=== PATIENT | female | born 1960 | race African-American/Black ===

== ENCOUNTER 2019-12-26 07:49 | Outpatient (RCR) | payer MEDICARE, SELFPAY ==
[2019-10-24 12:30] VITALS: BMI 56.9
== END 2020-01-22 23:59 | disposition home or self-care (01) ==
LOC: ANHWOC 07:49
PROVIDERS: PCP Family Medicine; Visit Provider Nurse Practitioner
DX: S71.109D Unspecified open wound, unspecified thigh, subsequent encounter (principal)
CPT/HCPCS: 99203; 99212; A9270; G0463

== ENCOUNTER 2020-04-09 07:33 | Outpatient (RCR) | payer MEDICARE, SELFPAY ==
--- NOTE | 2020-02-20 11:51 | PCWOUND ---
WOCN NOTE patient called to cancel appointment for today 02/20/20 . Rescheduled for next 02/27/20.
== END 2020-04-22 23:59 | disposition home or self-care (01) ==
LOC: ANHWOC 07:33
PROVIDERS: PCP Family Medicine; Visit Provider Nurse Practitioner
DX: S71.109D Unspecified open wound, unspecified thigh, subsequent encounter (principal)
CPT/HCPCS: 99212; A9270; G0463

== ENCOUNTER 2020-05-07 12:57 | Outpatient (RCR) | payer MEDICARE, SELFPAY ==
--- NOTE | 2020-06-03 11:27 | PCWOUND ---
Wocn Note Patient daughter called to cancel for tomorrow 06-04-20. patient is admitted to hospital in [facility]. patient to call when Discharged.
== END 2020-07-27 17:15 | disposition home or self-care (01) ==
LOC: ANHWOC 12:57
PROVIDERS: PCP Family Medicine; Visit Provider Nurse Practitioner
DX: S71.109D Unspecified open wound, unspecified thigh, subsequent encounter (principal)
CPT/HCPCS: 99212; G0463

== ENCOUNTER 2020-10-08 09:05 | Outpatient (CLI) | payer MEDICARE, SELFPAY ==
--- NOTE | ~2020-10-08 | MM_ITS ---
EXAMINATION: MM screening neil BI w lynda HISTORY: Screening TECHNIQUE: Craniocaudal and mediolateral oblique 3-D tomosynthesis images were obtained and synthetic 2-D images were generated. CAD analysis was submitted and interpreted. COMPARISON: No prior mammogram is available for comparison at this institution. BREAST PARENCHYMAL COMPOSITION: There are scattered areas of fibroglandular density. FINDINGS: There are bilateral clusters of calcifications and asymmetry in the periareolar locations. Possible right breast architectural distortion. There are benign bilateral breast calcifications. IMPRESSION: 1. Bilateral breast asymmetries and clustered calcifications. 2. Comparison to previous outside mammograms recommended to assess stability. BI-RADS Category 0: Incomplete: Needs additional imaging evaluation. Reviewed, dictated and finalized at location A. T DISTILLER
== END 2020-10-08 09:06 | disposition home or self-care (01) ==
PROVIDERS: PCP Family Medicine; Visit Provider Family Medicine
DX: Z12.31 Encounter for screening mammogram for malignant neoplasm of breast (principal); R92.8 Other abnormal and inconclusive findings on diagnostic imaging of breast
CPT/HCPCS: 77063; 77067

== ENCOUNTER 2020-12-22 12:59 | Outpatient (CLI) | payer MEDICARE, SELFPAY ==
--- NOTE | ~2020-12-22 | MMUS_ITS ---
EXAMINATION: MM diagnostic neil BI w lynda, US breast BI complete HISTORY: Follow-up breast calcifications and asymmetries. TECHNIQUE: Additional 3-D tomosynthesis images of the breasts were performed and synthetic 2-D images were generated. CAD analysis was submitted and interpreted. High resolution bilateral complete breas t ultrasound was performed. COMPARISON: Comparison to multiple prior studies sequentially, with oldest reviewed study dated 06/22. BREAST PARENCHYMAL COMPOSITION: Breast composed of scattered areas of fibroglandular density. FINDINGS: MAMMOGRAPHIC FINDINGS: There are scattered benign-appearing bilateral breast calcifications. There is ar 9 mm mass in the up per inner quadrant of the right breast, anterior-middle third, slightly more prominent than on prior study. There are additional asymmetries in the right breast on CC view involving the mid and lateral aspect of the right breast are more prominent than on prior study. There are scattered nodular densit ies anteriorly in the left breast, centered centrally on the MLO view and scattered medially and late rally on the CC view. ULTRASOUND: Right breast ultrasound: At 12:00, 2 cm from the nipple, there is an oval hypoechoic mass with drawing tracer ior shadowing measuring 8 mm. At 6:00, 3 cm from the nipple, there is an oval hypoechoic mass measuri ng 6 mm with echogenic hilum, most likely benign intramammary lymph node. At 8:00, 4 cm from the nipp le, there is a 4 mm cyst. At 8:00, 2 cm from the nipple, there is an oval hypoechoic mass with echoge andree hilum measuring 4 mm, most likely benign intramammary lymph node. Left breast ultrasound: At 12:00, 5 cm from the nipple, there is an 8 mm mass with hypoechoic center and posterior shadowing. No internal vascularity. At 11:00, 2 cm from the nipple, there is an irregul ar heterogeneous echogenicity mass measuring 11 mm with posterior shadowing. There is an adjacent 3 m m hypoechoic mass, likely benign. At 2:00, 4 cm from the nipple, there is a hypoechoic mass with irre gular margins and posterior shadowing. This mass measures 1.4 x 1.0 x 1 cm. IMPRESSION: 1. Abnormal bilateral breast masses including in the right breast at 12:00, 2 cm from the nipple, 12: 00, left breast at 5 cm from the nipple, left breast at 11:00, 2 cm from the nipple and left breast, 2:00, 4 cm from the nipple. 2. Bilateral ultrasound-guided breast biopsies recommended. BI-RADS category 4, suspicious findings. Reviewed, dictated and finalized at location A. ERVATION ASSISTANT IMPRESSION: 1. Abnormal bilateral breast masses including in the right breast at 12:00, 2 c m from the nipple, 12:00, left breast at 5 cm from the nipple, left breast at 1 1:00, 2 cm from the nipple and left breast, 2:00, 4 cm from the nipple. 2. Bilateral ultrasound-guided breast biopsies recommended. BI-RADS category 4, suspicious findings.
== END 2020-12-22 13:00 | disposition home or self-care (01) ==
LOC: ANHIMG 13:01
PROVIDERS: PCP Family Medicine; Visit Provider Family Medicine
DX: N63.15 Unspecified lump in the right breast, overlapping quadrants (principal); N63.25 Unspecified lump in the left breast, overlapping quadrants; N60.01 Solitary cyst of right breast; N63.24 Unspecified lump in the left breast, lower inner quadrant; N63.13 Unspecified lump in the right breast, lower outer quadrant
CPT/HCPCS: 76641; 77062; 77066; G0279

== ENCOUNTER 2021-02-02 09:27 | Outpatient (CLI) | payer MEDICARE, SELFPAY ==
--- NOTE | ~2021-02-02 | MMUS_ITS ---
MM post biopsy invasive BI, US breast bx add lesion LT, US breast bx add lesion LT, US breast biopsy RT w image 02/02/2021 11:12 (accession [id number]), 02/02/2021 11:02 (accession [id number]), 02/02/2021 11:02 (accession [id number]), 02/02/2021 11:02 (accession [id number]) EXAMINATION: US GUIDED NEEDLE BIOPSY WITH VACUUM ASSISTANCE DATE: 02/02/2021 11:21 CDT INDICATION: Bilateral breast masses identified on prior examination. Ultrasound-guided core biopsy i s requested to evaluate for malignancy. TECHNIQUE AND FINDINGS: The risks and potential benefits of the procedure were discussed with the patient, and written inform ed consent was obtained. After sterile preparation of both breasts, 1% lidocaine was utilized for lo sandra anesthesia. 1% lidocaine with epinephrine was used for deep anesthesia. Biopsies were performed for right breast mass located at 12:00, 2 cm from the nipple, left breast mass at 11:00, 2 cm from th e nipple and left breast mass located at 12:00, 5 cm from the nipple. The fourth mass in the left sahara ast at 2:00, 4 cm from the nipple appears to be a 2 mm cyst during real-time examination and was not biopsied. A 10G vacuum-assisted biopsy gun needle was advanced through to the outer edge of the region of inter est in each breast utilizing utilizing sonographic guidance. A total of three tissue core samples we re obtained through each lesion. An Inrad tissue marker clip was then placed at the biopsy sites. He mostasis was achieved. The patient tolerated procedure well and there was no evidence of immediate complication. The patien t was given verbal instructions partly is from the department. Bilateral breast mammograms to [facility] nt tissue marker clip placement. The tissue samples were submitted to surgical pathology for histolog ic analysis. IMPRESSION: 1. Successful ultrasound-guided vacuum-assisted biopsies of bilateral breast masses with tissue mita er placement. Please refer to pathology report for histologic analysis. Reviewed, dictated and finalized at location A. IMPRESSION: 1. Successful ultrasound-guided vacuum-assisted biopsies of bilateral breast m asses with tissue marker placement. Please refer to pathology report for histol ogic analysis. IMPRESSION: 1. Successful ultrasound-guided vacuum-assisted biopsies of bilateral breast m asses with tissue marker placement. Please refer to pathology report for histol ogic analysis. IMPRESSION: 1. Successful ultrasound-guided vacuum-assisted biopsies of bilateral breast m asses with tissue marker placement. Please refer to pathology report for histol ogic analysis.
== END 2021-02-02 09:28 | disposition home or self-care (01) ==
PROVIDERS: PCP Family Medicine; Visit Provider Family Medicine
DX: N63.10 Unspecified lump in the right breast, unspecified quadrant (principal); N63.20 Unspecified lump in the left breast, unspecified quadrant; N60.32 Fibrosclerosis of left breast
CPT/HCPCS: 19083; 19084; 88305; A4648

== ENCOUNTER → 2021-05-06 08:52 | Outpatient (CLI) | payer MEDICARE, SELFPAY ==
--- NOTE | 2021-05-24 13:08 | WPDSLEEPSTUD ---
Sleep Study Date of Study: 04/29/21 Ordering Provider: Kevon Aden APRN Interpreting Physician: Marium Godinez MD Sleep Study Type: Polysomnogram Height: 1.52 m Weight: 135.624 kg Body Mass Index: 58.3 Neck Circumference (inches): 15 [place]: 10 Reason for Sleep Study Known obstructive sleep apnea, stopped using CPAP, lost 50 lb, retesting Sleep History Fani Horton is a 61 year old female with obstructive sleep apnea syndrome who has used CPAP in the past. She has lost over 50 lb which is fantastic. There is a family history of sleep disorders with her brother being diagnosed with JASON. He is no longer living. She occasionally awakens from sleep feeling short of breath. She rarely awakens night with heartburn, belching or coughing. She constantly snores loudly, occasionally has trouble sleep with a cold, rarely wakes up gasping for breath at night. She occasionally has breathing problems at night observed by others. She frequently sweats excessively at night. She rarely notices her heart pounding or beating irregularly night. She constantly falls asleep during the day, falls asleep involuntarily but denies falling asleep while driving. She does not have loss of muscle tone with strong emotion. She does not have daytime difficulties due to her excessive sleepiness. She rarely feels paralyzed on waking or falling asleep and rarely has vivid dreamlike scenes upon awakening or falling asleep. She denies feeling afraid to go to sleep. She rarely has nightmares. She constantly remembers her dreams. She occasionally has racing thoughts. She does not feel sad, depressed or anxious. She frequently has muscular tension and frequently notices parts of her body jerking. She rarely kicks at night. She occasionally has crawling and aching feelings in her legs, occasionally has leg pain at night. She does not have morning jaw pain. She occasionally grind her teeth during sleep, occasionally is bothered by pain during the day and awakened by pain at night. She constantly wakes up feeling stiff in the morning, frequently with sore achy muscles and pain in the neck and spine. Normal bedtime is 11:30 p.m. falling asleep within 15-30 minutes, waking once or sometimes not at all during the night. When she awakens she may check the time on her phone, sit up in the bed and then eventually return to sleep within 10 minutes. She wakes the morning between 6:00 and 7:30 a.m. on the weekends, she may stay awake later, 1:00 a.m. and waking between 9 and 10:30 a.m.. She does take naps in the afternoon or evening. A short nap 10 or 15 minutes long may be refreshing. Most of the time she feels adequate in the morning. She feels better in the afternoon or evening compared to the morning. Habits: Quit tobacco 30 years ago. She drinks tea. No alcohol or recreational drugs. 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) Class 3 severe obesity with body mass index (BMI) of 50.0 to 59.9 in adult (~1970) COVID-19 11/2020 Diabetic peripheral neuropathy associated with type 2 diabetes mellitus (~1999) End-stage renal disease on hemodialysis (~03/2019) Gout Gout due to renal impairment (~2008) History of renal cell carcinoma Knee osteoarthritis (~2008) JASON on CPAP (~2012) Renal cell carcinoma of left kidney (~02/14/12) Skin tag (~1995) Type 2 diabetes mellitus without complications Venous thromboembolism (VTE) in patient 61 to 74 years of age (~06/2019) Surgical History Surgical History H/O breast biopsy (~2015) H/O esophagogastroduodenoscopy (~2016) H/O ventral hernia repair (~2015) History of delivery (~1988) History of colonoscopy (~2018) History of dental surgery (~2016) History of partial nephrectomy 01/2012
[2021-05-24 14:07] VITALS: BMI 58.3
== END ==
PROVIDERS: PCP Family Medicine; Visit Provider Nurse Practitioner Family
DX: G47.33 Obstructive sleep apnea (adult) (pediatric) (principal)
CPT/HCPCS: 95810

== ENCOUNTER → 2021-08-10 20:00 | Outpatient (CLI) | payer MEDICARE, SELFPAY ==
--- NOTE | 2021-08-26 12:02 | WPDSLEEPSTUD ---
Sleep Study Date of Study: 07/30/21 <Yvonne Barnes DO - Last Filed: 08/26/21 12:49> Ordering Provider: Kevon Aden APRN <Yvonne Barnes DO - Last Filed: 08/26/21 12:49> Interpreting Physician: Yvonne Barnes DO <Yvonne Barnes DO - Last Filed: 08/26/21 12:49> Sleep Study Type: CPAP Titration <Yvonne Barnes DO - Last Filed: 08/26/21 12:49> Height: 1.52 m <Yvonne Barnes DO - Last Filed: 08/26/21 12:49> Weight: 135.171 kg <Yvonne Barnes DO - Last Filed: 08/26/21 12:49> Body Mass Index: 58.1 <Yvonne Barnes DO - Last Filed: 08/26/21 12:49> Neck Circumference (inches): 17.5 <Yvonne Barnes DO - Last Filed: 08/26/21 12:49> [place]: 4 <Yvonne Barnes DO - Last Filed: 08/26/21 12:49> Reason for Sleep Study The patient has a history of JASON but stopped using CPAP. Insurance required retesting so she had an This test was performed using 4 channel monitoring including respiratory effort channel, snoring channel, heart rate channel, and oxygen saturation channel. This study was scored using CMS guidelines.done on 05/06/2021 that showed an AHI of 17.9 with severe hypoxemia. A PAP Titration was recommended. <Yvonne Barnes, DO - Last Filed: 08/26/21 12:49> Sleep History Fani Horton is a 61 year old female with obstructive sleep apnea syndrome who has used CPAP in the past. Her late brother was diagnosed with JASON. She occasionally awakens from sleep feeling short of breath. She rarely awakens night with heartburn, belching or coughing. She constantly snores loudly, occasionally has trouble sleep with a cold, rarely wakes up gasping for breath at night. She occasionally has breathing problems at night observed by others. She frequently sweats excessively at night. She rarely notices her heart pounding or beating irregularly night. She constantly falls asleep during the day, falls asleep involuntarily but denies falling asleep while driving. She does not have loss of muscle tone with strong emotion. She does not have daytime difficulties due to her excessive sleepiness. She rarely feels paralyzed on waking or falling asleep and rarely has vivid dreamlike scenes upon awakening or falling asleep. She denies feeling afraid to go to sleep. She rarely has nightmares. She constantly remembers her dreams. She occasionally has racing thoughts. She does not feel sad, depressed or anxious. She frequently has muscular tension and frequently notices parts of her body jerking. She rarely kicks at night. She occasionally has crawling and aching feelings in her legs, occasionally has leg pain at night. She does not have morning jaw pain. She occasionally grind her teeth during sleep, occasionally is bothered by pain during the day and awakened by pain at night. She constantly wakes up feeling stiff in the morning, frequently with sore achy muscles and pain in the neck and spine. Normal bedtime is 11:30 p.m. falling asleep within 15-30 minutes, waking once or sometimes not at all during the night. When she awakens she may check the time on her phone, sit up in the bed and then eventually return to sleep within 10 minutes. She wakes the morning between 6:00 and 7:30 a.m. on the weekends, she may stay awake later, 1:00 a.m. and waking between 9 and 10:30 a.m.. She does take naps in the afternoon or evening. A short nap 10 or 15 minutes long may be refreshing. Most of the time she feels adequate in the morning. She feels better in the afternoon or evening compared to the morning. Habits: Quit tobacco 30 years ago. She drinks tea. No alcohol or recreational drugs. <Yvonne Barnes DO - Last Filed: 08/26/21 12:49> [facility] Past Medical History Medical History: Medical History Alopecia of scalp (~1988) Benign essential hypertension (~1993) Chronic thrombosis of
[2021-08-26 12:06] VITALS: BMI 58.1
== END ==
PROVIDERS: PCP Family Medicine; Visit Provider Nurse Practitioner Family
DX: G47.33 Obstructive sleep apnea (adult) (pediatric) (principal)
CPT/HCPCS: 95811

== ENCOUNTER 2021-10-12 08:46 | Outpatient (CLI) | payer MEDICARE, SELFPAY ==
--- NOTE | ~2021-10-12 | MMUS_ITS ---
EXAMINATION: MM diagnostic neil BI w lynda, US breast BI limited HISTORY: Mastodynia TECHNIQUE: Craniocaudal, mediolateral, and mediolateral oblique 3-D tomosynthesis images of the breas ts were performed and synthetic 2-D images were generated. CAD analysis was submitted and interpreted . High resolution limited bilateral breast ultrasound was performed. COMPARISON: 12/22/2020, 10/08/2020, 06/22/2015 BREAST PARENCHYMAL COMPOSITION: There are scattered areas of fibroglandular density. FINDINGS: MAMMOGRAPHIC FINDINGS: Right breast: There is architectural distortion in the anterior third of the outer breast at the 9:00 location 7 cm from the nipple. No suspicious mass or calcification are identified. Left breast: There are stable masses and calcifications of the left breast without suspicious interva l change. ULTRASOUND: Right breast: Small cysts are noted in the breast at the 12:00 and 10:00 locations. There appears to be architectural distortion of the breast at the 9:00 location 2 cm from the nipple. Left breast: No suspicious cystic or solid mass is identified. IMPRESSION: 1. Architectural distortion of the outer right breast. 2. Tomosynthesis guided right breast biopsy is recommended. BI-RADS category 4, suspicious findings. Reviewed, dictated and finalized at location A. PREVENTION CAPTAIN IMPRESSION: 1. Architectural distortion of the outer right breast. 2. Tomosynthesis guided right breast biopsy is recommended. BI-RADS category 4, suspicious findings.
== END 2021-10-12 08:47 | disposition home or self-care (01) ==
LOC: ANHIMG 08:49
PROVIDERS: Visit Provider Nurse Practitioner
DX: R92.8 Other abnormal and inconclusive findings on diagnostic imaging of breast (principal)
CPT/HCPCS: 76642; 77062; 77066; G0279

== ENCOUNTER 2021-11-02 10:29 | Outpatient (CLI) | payer MEDICARE, SELFPAY ==
--- NOTE | ~2021-11-02 | US_ITS ---
EXAMINATION: US pelvic complete w TV EXAM DATE: 11/02/2021 11:49 INDICATION: R93.89 - Abnormal findings on diagnostic imaging of other... TECHNIQUE: Pelvic transabdominal and transvaginal sonogram was performed. There are multiple graysca le and Doppler images available for interpretation. There is no prior study for comparison. FINDINGS: Uterus measures 7.2 x 3.4 x 2.4 cm, with probable peripherally calcified 3 cm left fundal fibroid obscuring the endometrium. There is no free pelvic fluid. Right adnexa: The ovary measures 3.4 x 1.6 x 1.8 cm and is morphologically normal. Ovarian vascular f low confirmed. Left adnexa: The ovary is not identified. There is no adnexal mass. IMPRESSION: Fibroid uterus. Reviewed, dictated and finalized at location A. 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
== END 2021-11-02 10:30 | disposition home or self-care (01) ==
LOC: ANHIMG 10:33
PROVIDERS: PCP Family Medicine; Visit Provider Student in an Organized Health Care Education/Training Program
DX: R93.89 Abnormal findings on diagnostic imaging of other specified body structures (principal); D25.9 Leiomyoma of uterus, unspecified
CPT/HCPCS: 76830; 76856

== ENCOUNTER 2022-07-01 01:49 | Day surgery (SDC) | payer MEDICARE, SELFPAY ==
[2022-06-23 15:26] VITALS: BMI 61.6
--- NOTE | 2022-06-23 15:36 | SUR.PREOP ---
Report to the Outpatient Waiting Room, entrance under the green pavilion located off [facility], at time __1130 on date _07/01/22 . OR Time: _1330 . - You and your visitor will be asked to self-screen and do not enter if you have any COVID symptoms. - Only one visitor and NO children visitors are allowed at this time. - The patient visitor is requested to leave or wait in car when not with patient due to restrictions. - A mask is required within the hospital. Patients may have clear liquids (water, carbonated beverages, clear teas, apple juice) until 3 hours prior to surgery with a maximum of 20 ounces. - No food from midnight until time of surgery - Infants may have breast milk until 4 hours before surgery, infant formula 6 hours prior to surgery. - Children will be allowed to drink immediately following surgery. If applicable, please bring a bottle or sippy cup to assist with drinking. Juice, water, soda, and popsicles are readily available. For infants on formula, please bring formula the day of surgery. Pacifiers are allowed. Take the following medications with a SIP of water the morning of surgery: __n/a Medications to discontinue per physician n/a Date to take last dose_n/a Please no make-up, nail spanish, hairspray, perfume, deodorant, or body powder the day of surgery. No jewelry (including any body piercings) or valuables the day of surgery, leave them at home. Please take a shower or bath the night before, or the morning of, surgery with an antibacterial soap. Wear comfortable, loose fitting clothing. Children are encouraged to wear pajamas. - Jewelry must be removed prior to entering the operating room. Rings and piercings that are not removed may be cut off. - The hospital will not accept responsibility for valuables. - Please leave all valuables, including medications, at home the day of surgery. If you are going home after surgery, a licensed driver material handler must drive you home. - NO public transportation without another adult. - We recommend that an adult stay with you for 24 hours following discharge. - We also recommend that you do not drive, make important decision, drink alcoholic beverages, or take any drugs that were not prescribed by your health care provider for at least 24 hours after your discharge time. For Pediatric surgeries, we recommend two adults accompany the child home (only one inside the building at this time). Follow any additional instructions given to you from your surgeon. If you or anyone in your household have experienced Covid symptoms in the past week, please notify your surgeon or the nurse liaison at the phone number below for possible testing. Telephone instructions given to neymar higuera and asked if any additional questions and then verbalized understanding. Patient advised to call surgeon office or pre surgery nurse liaison [phone] if any additional questions.
[2022-07-01] VITALS (9 sets, daily range): BP systolic 101–136; BP diastolic 41–59; PULSE 66–80; RESP 12–16; TEMP 36.1–36.8; O2SAT 80–100
--- NOTE | 2022-07-01 01:50 | PM.IMHP ---
H&P: HPI History of Present Illness Date/Time: 07/01/22 01:50 Chief Complaint: Postmenopausal bleeding Narrative: Patient is a 62yo woman who presented to the gynecology office with complaints of postmenopausal bleeding.? Patient was evaluated earlier this year in 11/2021 for a thickened ES. An EMB was performed at that time and showed a benign endometrial polyp. She did not experience any bleeding again until 04/2022. States that bleeding lasted for one day and subsequently resolved.?Due to recurrence of bleeding, discussion was had with patient and decision was made to proceed with hysteroscopy and D&C for further evaluation and management. In general, patient doing well today without complaints. Review of Systems Review of Systems: All systems reviewed & are unremarkable except as noted in HPI and below Constitutional: Constitutional: Reports as per HPI and Reports no additional constitutional complaints Eyes: Eyes: Reports as per HPI and Reports no additional eye complaints ENT: Reports system reviewed and no additional complaints, except as documented and Reports as per HPI Cardiovascular: Cardiovascular: Reports as per HPI and Reports no additional cardiovascular complaints Respiratory: Respiratory: Reports as per HPI and Reports no additional respiratory complaints Gastrointestinal: Gastrointestinal: Reports as per HPI and Reports no additional gastrointestinal complaints Genitourinary: Genitourinary: Reports no additional female genitourinary complaints and Reports as per HPI Musculoskeletal: Musculoskeletal: Reports no additional musculoskeletal complaints and Reports as per HPI Integumentary/Breasts: Skin/Breast: Reports system reviewed and no additional complaints, except as docu and Reports as per HPI Neurologic: Reports system reviewed and no additional complaints, except as documented and Reports as per HPI Psychiatric: Psychiatric: Reports no additional psychiatric complaints and Reports as per HPI Endocrine: Endocrine: Reports no additional endocrine complaints and Reports as per HPI Hematologic/Lymphatic: Hematologic/Lymphatic: Reports no additional hematologic/lymphatic complaints and Reports as per HPI Allergic/Immunologic: Allergic/Immunologic: Reports no additional allergic/immunologic complaints and Reports as per HPI [facility] Past Medical History Medical History Alopecia of scalp (~1988) Benign essential hypertension (~1993) Chronic low back pain COVID-19 11/2020 Diabetic peripheral neuropathy associated with type 2 diabetes mellitus (~1999) End-stage renal disease on hemodialysis (~03/2019) Gout History of renal cell carcinoma Knee osteoarthritis (~2008) Mass of both breasts on mammogram JASON on CPAP (~2012) Renal cell carcinoma of left kidney (~02/14/12) Skin tag (~1995) Thrombosis of right internal jugular vein (~2019) due to jamie cath - resolved Type 2 diabetes mellitus without complications Venous thromboembolism (VTE) in patient 61 to 74 years of age (~06/2019) Surgical History Surgical History H/O breast biopsy (~2015) H/O esophagogastroduodenoscopy (~2016) H/O ventral hernia repair (~2015) History of delivery (~1988) History of colonoscopy (~2018) History of dental surgery (~2016) History of partial nephrectomy 01/2012 - mass S/P cholecystectomy (~1993) Family History Family History Father Diabetes mellitus Family history of cardiac disorder Family history of congestive heart failure Family history of type 2 diabetes mellitus Sibling Diabetes mellitus Family history of cardiac disorder Family history of kidney disease Family history of type 2 diabetes mellitus Mother Asthma Family history of pancreatic cancer Family history of congestive heart failure Grandparent Famil
[2022-07-01] MEDS: ACETAMINOPHEN 500 MG TABLET 1000 MG PO (12:07)
[2022-07-01] MEDS: SODIUM CHLORIDE 0.9% IV 500 ML 30 ML IV CONT (12:07)
--- NOTE | 2022-07-01 12:09 | SUR.PREOP ---
av shunt to left upper arm,bruit present.
[2022-07-01 12:18] LABS: Anion Gap 19 mmol/L (8-16); Blood Urea Nitrogen 67 mg/dL (7-17); Calcium 10.5 mg/dL (8.4-10.2); Carbon Dioxide 29 mmol/L (22-30); Chloride 91 mmol/L (98-107); Estimated CRCL calculation 7 ml/min; Estimated Glomerular Filt Rate 5; Glucose 192 mg/dL (65-110); Potassium 4.4 mmol/L (3.4-5.0); Sodium 139 mmol/L (137-145)
[2022-07-01 12:26] LABS: Partial Thromboplastin Time 37.5 SECONDS (22.3-36.8)
--- NOTE | 2022-07-01 12:43 | WPDANESEPPF ---
Anes - Initial Pre Proc Eval Procedure: Operation Date: 07/01/22 13:30 Proposed Procedures p Hysteroscopy, Dilation and Curettage, Possible Myosure - Ines Diego MD Date/Time: 07/01/22 12:43 Surgeon: Ines Diego MD Pre Op Diagnosis: post menopausal bleeding Patient Data Age: 62 Gender: F Height: 1.52 m Weight: 150 kg Last Vital Signs Temp 98.3 F 07/01/22 11:48 Pulse 73 07/01/22 11:48 Resp 16 07/01/22 11:48 BP 111/41 L 07/01/22 11:48 Pulse Ox 100 07/01/22 11:48 O2 Del Method Room Air 07/01/22 11:48 Allergies Allergy/AdvReac Type Severity Reaction Status Date / Time atorvastatin Allergy Mild joint Verified 07/01/22 11:38 aches glipizide Allergy Mild lightheaded Verified 07/01/22 11:38 metformin Allergy Mild nausea Verified 07/01/22 11:38 rofecoxib Allergy Mild Joint Pain Verified 07/01/22 11:38 PAULINA Inhibitors AdvReac Severe lips Verified 07/01/22 11:38 swelling pravastatin AdvReac Intermediate Muscle Pain Verified 07/01/22 11:38 Home Medications Medication Instructions Recorded Confirmed Type acetaminophen 500 mg tablet See Rx Instructions .Route 08/29/19 07/01/22 History (Tylenol Extra Strength) .COMPLEX PRN Pain ferric citrate 210 mg iron tablet 210 mg PO TID 09/08/20 07/01/22 History (Auryxia) vitamin B complex with C-folic 1 tablet PO DAILY 09/08/20 07/01/22 History acid 0.8 mg-zinc citrate 15 mg tablet (Dialyvite 800 with Zinc 15) ewntjrlrazqwdslyzapylo-pknpttbq-npgqeugx 1 drp ophthalmic (eye) DAILY PRN 03/23/21 07/01/22 History 80 0.5 %-1 %-0.5 % eye drops dry eye(s) (Refresh Optive Advanced) insulin glargine 100 unit/mL (3 10 unit subcut QPM 03/23/21 07/01/22 History mL) subcutaneous pen (Lantus Solostar U-100 Insulin) insulin lispro 100 unit/mL 5 unit subcut TID 10/07/21 07/01/22 History subcutaneous cartridge (Humalog U-100 Insulin) midodrine 10 mg tablet 10 mg PO .PRN 10/14/21 07/01/22 History allopurinol 100 mg tablet 100 mg PO DAILY #90 tabs 03/29/22 07/01/22 Rx pantoprazole 40 mg tablet,delayed 40 mg PO QAM #90 tabs 03/29/22 07/01/22 Rx release (Protonix) ezetimibe 10 mg tablet (Zetia) 10 mg PO DAILY #90 tabs 04/01/22 07/01/22 Rx pregabalin 50 mg capsule 50 mg PO DAILY 04/05/22 07/01/22 History aspirin 81 mg tablet 81 mg PO DAILY 06/23/22 07/01/22 History Laboratory Tests 07/01/22 07/01/22 11:50 11:50 PT 13.0 Seconds Seconds (11.1-14.7) INR 1.0 APTT 37.5 SECONDS H SECONDS (22.3-36.8) Sodium 139 mmol/L mmol/L (137-145) Potassium 4.4 mmol/L mmol/L (3.4-5.0) Chloride 91 mmol/L L mmol/L (98-107) Carbon Dioxide 29 mmol/L mmol/L (22-30) Anion Gap 19 mmol/L H mmol/L (8-16) BUN 67 mg/dL H mg/dL (7-17) Creatinine 10.10 mg/dL H mg/dL (0.7-1.0) Estim Creat Clear Calc 7 ml/min ml/min Estimated GFR 5 L (59 - ) Glucose 192 mg/dL H mg/dL (65-110) Calcium 10.5 mg/dL H mg/dL (8.4-10.2) Patient hx anesthesia problems: none Family hx anesthesia problems: none Results Review: All pre-operative results and documents have been reviewed as part of the pre-operative evaluation. [facility] Past Medical History Medical History Alopecia of scalp (~1988) Benign essential hypertension (~1993) Chronic low back pain COVID-19 11/2020 Diabetic peripheral neuropathy associated with type 2 diabetes mellitus (~1999) End-stage renal disease on hemodialysis (~03/2019) Gout History of renal cell carcinoma Knee osteoarthritis (~2008) Mass of both breasts on mammogram JASON on CPAP (~2012) Renal cell carcinoma of left kidney (~02/14/12) Skin tag (~1995) Thrombosis of right internal jugular vein (~2019) due to jamie cath - resolved Type 2 diabetes mellitus without complications Venous thromboembolism (VTE) in patient 61 to 74 years of age (~06/2019)
--- NOTE | 2022-07-01 13:17 | WPDHPUPDATE1 ---
History and Physical Update Update Date/Time: 07/01/22 13:17 History and Physical has been reviewed, including an updated exam of the patient. There are NO changes in the patient's condition. Risks, benefits, and alternatives have been discussed and questions answered. Patient agrees to proceed with procedure.
[2022-07-01] MEDS: LIDOCAINE HCL 1% PF 30 ML VIAL 10 ML INFILTRATE (13:43)
--- NOTE | 2022-07-01 14:41 | W.PM.PROC2 ---
Procedure Note - Detailed Date of Procedure 07/01/22 Pre-op Diagnosis post menopausal bleeding Post-op Diagnosis Same Procedure Performed Hysteroscopy, dilation and curettage, endometrial polypectomy with MyoSure Surgeon Ines Diego MD Anesthesia General Findings Elongated, narrow endometrial polyp visualized, rest of visualized portions of endometrial cavity appeared within normal limits, tubal ostia not vsiualized Description of Procedure The patient was taken to operating room where she self-transferred to the operating room table.? She was placed in dorsal supine position.? Anesthesia was administered and found to be adequate.? The patient was repositioned in dorsal lithotomy position with the use of Clifford stirrups.? She was prepped and draped in usual sterile fashion.? A time-out was performed.? A bivalve speculum was inserted into the vagina.? The cervix was well visualized.? The anterior lip of the cervix was grasped with a single-tooth tenaculum. ? A paracervical block was performed with 1% lidocaine with 5 cc of lidocaine on both sides.? The cervix was serially dilated.? A hysteroscope was introduced into the endometrial cavity.?A long, narrow endometrial polyp was visualized.? Hysteroscope was removed. Polyp forceps were used in an attempt to remove polyp, however, only a fragment of polyp was removed. Decision was made to convert to the MyoSure hysteroscope. The MyoSure hysteroscope was introduced into endometrial cavity and the MyoSure device was advanced.? Device was activated and utilized to evacuate remaining portions of the polyp from the endometrial cavity.? The MyoSure system was removed.? A medium-sized curette was then introduced into the cavity.? All quadrants of the endometrium were explored.? A minimal amount of tissue was obtained and prepared to be sent to pathology for analysis.? The regular hysteroscope was then reintroduced, however, visualization was limited. Hysteroscope was removed. Several photographs were taken throughout entire procedure.? Procedure was deemed complete.? Tenaculum was removed from the cervix.? No bleeding was noted.? The vagina was cleansed and dried and the speculum was removed.? The remainder of the patient was also cleansed and dried.? All sponge, lap, and instrument counts were correct at end of the procedure. Patient was awakened from anesthesia without difficulty and transported to the recovery room in stable condition. Estimated Blood Loss 5 IV Fluids 100 (hysteroscopic fluid 4000cc in/3670cc out) Drains No Packing No Pathology Yes (endometrial curettings and endometrial shavings) Complications No immediate complications Condition Stable Disposition Same day [facility] Billing Surgery - Charge Forward: Surgery Billing
[2022-07-01 16:41] LABS: Glucose Point of Care 131 mg/dl (65-105)
== END 2022-07-01 16:18 | disposition home or self-care (01) ==
PROVIDERS: Anesthesiology; PCP Family Medicine; Visit Provider Student in an Organized Health Care Education/Training Program
PROC: 0U5B8ZZ Destruction of Endometrium, Via Natural or Artificial Opening Endoscopic (ICD-10-PCS; CPT 58563; principal; 2022-07-01 13:30)
DX: N95.0 Postmenopausal bleeding (principal); N84.0 Polyp of corpus uteri; Z79.82 Long term (current) use of aspirin; Z79.4 Long term (current) use of insulin; Z87.891 Personal history of nicotine dependence; Z90.49 Acquired absence of other specified parts of digestive tract; G47.33 Obstructive sleep apnea (adult) (pediatric); E11.42 Type 2 diabetes mellitus with diabetic polyneuropathy; E11.22 Type 2 diabetes mellitus with diabetic chronic kidney disease; I12.0 Hypertensive chronic kidney disease with stage 5 chronic kidney disease or end stage renal disease; N18.6 End stage renal disease; Z99.2 Dependence on renal dialysis; Z86.16 Personal history of COVID-19; Z85.53 Personal history of malignant neoplasm of renal pelvis; Z86.718 Personal history of other venous thrombosis and embolism; M10.9 Gout, unspecified; Z90.5 Acquired absence of kidney; L65.9 Nonscarring hair loss, unspecified; E66.01 Morbid (severe) obesity due to excess calories; Z68.44 Body mass index [BMI] 60.0-69.9, adult
CPT/HCPCS: 58558; 36415; 80048; 82948; 85610; 85730; 88305; A9270; J0330; J2405; J2704; J3010; J7030; J7040

== ENCOUNTER 2023-02-02 09:21 | Outpatient (CLI) | payer MEDICARE, SELFPAY ==
[2023-02-02 10:11] LABS: Basophils Absolute Auto 0.1 K/mm3 (0.0-0.1); Basophils Percent Auto 0.7 % (0.2-1.2); Eosinophils Absolute Auto 0.5 K/mm3 (0-0.3); Eosinophils Percent Auto 6.7 % (0-4.4); Hematocrit 38.3 % (37.0-47.0); Hemoglobin 11.8 g/dL (12.0-15.0); Immature Granulocyte Absolute 0.02 K/mm3 (0.00-0.031); Immature Granulocyte Percent A 0.3 % (0-0.5); Lymphocytes Absolute Auto 1.61 K/mm3 (0.9-3.2); Lymphocytes Percent Auto 23.4 % (18.3-44.2); Mean Corpuscular HGB Conc 30.8 g/dl (32-36); Mean Corpuscular Hemoglobin 31.7 pg (26-34); Mean Platelet Volume 11.2 fl (7.4-10.4); Monocytes Absolute Auto 0.5 K/mm3 (0.1-0.6); Monocytes Percent Auto 7.3 % (2.6-8.5); Neutrophils Absolute Auto 4.2 K/mm3 (1.3-6.7); Neutrophils Percent Auto 61.6 % (45.5-73.1); Platelet Count Result 250 k/mm3 (150-375); Red Blood Count 3.72 M/mm3 (4.2-5.4); Red Cell Distribution Width 15.9 % (11.5-14.5); White Blood Count 6.9 K/mm3 (4.5-10.0)
[2023-02-02 10:46] LABS: Alanine Aminotransferase 44 U/L (6-35); Albumin Level 4.5 g/dL (3.5-5.1); Alkaline Phosphatase 218 U/L (38-126); Anion Gap 7 mmol/L (8-16); Aspartate Amino Transferase 46 U/L (14-36); Bilirubin,Total 0.9 mg/dL (0.2-1.3); Blood Urea Nitrogen 46 mg/dL (7-17); Calcium 9.3 mg/dL (8.4-10.2); Carbon Dioxide 37 mmol/L (22-30); Chloride 92 mmol/L (98-107); Cholesterol 229 mg/dL (0-200); Estimated Glomerular Filt Rate 6; Glucose 228 mg/dL (65-110); HDL Direct 62 mg/dL; Potassium 4.5 mmol/L (3.4-5.0); Sodium 136 mmol/L (137-145); Triglycerides 150 mg/dL (<150)
[2023-02-02 10:57] LABS: LDL Cholesterol Direct 88 mg/dL
[2023-02-02 11:14] LABS: Vitamin D 25 Hydroxy 32.7 ng/mL
== END 2023-02-02 09:22 | disposition home or self-care (01) ==
PROVIDERS: PCP Family Medicine; Visit Provider Family Medicine
DX: E11.9 Type 2 diabetes mellitus without complications (principal); Z79.4 Long term (current) use of insulin; Z85.528 Personal history of other malignant neoplasm of kidney; N18.6 End stage renal disease; I12.0 Hypertensive chronic kidney disease with stage 5 chronic kidney disease or end stage renal disease; Z99.2 Dependence on renal dialysis; M10.00 Idiopathic gout, unspecified site; E55.9 Vitamin D deficiency, unspecified; E53.8 Deficiency of other specified B group vitamins
CPT/HCPCS: 36415; 80053; 80061; 82306; 82607; 84443; 84550; 85025

== ENCOUNTER 2023-06-27 08:54 | Outpatient (CLI) | payer MEDICARE, SELFPAY ==
--- NOTE | ~2023-06-27 | DEXA_ITS ---
Bone Density Report Name: ELENA GARCIA Age: 63 Sex: Female Ethnicity: White Date of : 1960 Indication: postmenopausal; screening for osteoporosis; cancer; Referring Provider: MARIA DEL CARMEN DELGADO Study: Bone densitometry was performed. Exam Date: June 27, 2023 Accession number: [id number] Bone Density: Region BMD T-score Z-score Classification AP Spine(L1-L4) 1.372 3.0 4.7 Normal Femoral Neck (Left) 1.044 1.8 3.3 Normal Total Hip (Left) 1.271 2.7 3.9 Normal Femoral Neck (Right) 1.000 1.4 2.9 Normal Total Hip (Right) 1.240 2.4 3.7 Normal Total Hip Mean 1.255 2.6 3.8 Normal World Health Organization criteria for BMD impression classify patients as: Normal (T-score at or above -1.0), Osteopenia (T-score between -1.0 and -2.5), or Osteoporosis (T-score at or below -2.5). 10-year Fracture Risk: FRAX not reported because: All T-scores for Spine Total, Hip Total, Femoral Neck at or above -1.0 Clinical Information Provided by Patient: Has used the following medications: Vitamin D Has the following medical conditions: Cancer Patient maximum height was 60 Menopause Age: 46 No regular weight bearing exercise Does not regularly consume dairy products Onset of menses at age 7 Number of children 1 Impression: The patient has normal bone mass. Discussion: LOW RISK OF FRACTURE; BONE DENSITY IS WELL ABOVE THE MINIMUM DESIRABLE LEVEL AND ABOVE AVERAGE FOR AGE AND SEX AT ALL SKELETAL SITES TESTED. This person's bone density is above expected limits for age and sex. This is rarely clinically significant, but should be pursued if there are significant musculoskeletal complaints. The patient should follow a healthful lifestyle (good nutrition with adequate calcium and vitamin D, and appropriate weight-bearing exercise). Follow-Up: Consider repeating this study in 5 years or sooner if there is some new clinical indication. Reported by: BLANCA on 06/27/2023 9:58:00 AM. Reviewed, dictated and finalized at location ADeniz ORDOÑEZ
== END 2023-06-27 08:55 | disposition home or self-care (01) ==
PROVIDERS: PCP Family Medicine; Visit Provider Family Medicine
DX: Z78.0 Asymptomatic menopausal state (principal)
CPT/HCPCS: 77080

== ENCOUNTER 2023-07-13 11:06 | Outpatient (CLI) | payer MEDICARE, SELFPAY ==
--- NOTE | ~2023-07-13 | XR_ITS ---
Clinical Indication: Cough PA and lateral views of the chest: Comparison: None Findings: The lungs are clear, without evidence of focal consolidation or pleural effusion. Cardiome diastinal silhouette is within normal limits. Bones and soft tissues are unremarkable. Impression: Normal chest. Reviewed, dictated and finalized at location . Impression: Normal chest.
== END 2023-07-13 11:07 | disposition home or self-care (01) ==
PROVIDERS: PCP Family Medicine; Visit Provider Physician Assistant
DX: R05.9 Cough, unspecified (principal)
CPT/HCPCS: 71046

== ENCOUNTER 2023-09-28 12:33 | Outpatient (CLI) | payer MEDICARE, SELFPAY ==
--- NOTE | 2023-10-02 12:24 | WPDPFTINT ---
PFT Procedure Performed PFT Procedure Performed Spirometry with Pre/Post Bronchodilator Plethysmography (Lung Vol) Diffusing Cap (DLCO) Flow Vol Loop PFT Interpretation DOS: 09/28/2023 REQUESTING: Litzy Rosario PA-C REASON FOR TESTING: dyspnea on exertion, cough PULMONARY FUNCTION TESTS Results are reliable and reproducible. Spirometry: pre bronchodilator FEV1 is 1.56 L, 88% predicted, normal. Pre bronchodilator FVC is 1.82 L, 82%, normal. FEV1/FVC ratio 86%, normal. After bronchodilator there is a 3% increase in the FEV1 and 3% increase in the FVC, not statistically significant. The FEV1 becomes 1.61 L, 91% and the FVC becomes 1.87 L, 85%. Lung volumes: Total lung capacity 3.53 L, 90%, normal. Residual volume is 1.56 L, 89%, normal. RV /TLC is 44%, normal. Diffusion: DLCO DLCO is 11.8, 61%, mildly reduced. DLCO / VA 4.07, 89%, normal. Flow volume loop: Unremarkable, normal pattern IMPRESSION: this full PFT shows normal spirometry, normal lung volumes with a mild diffusion impairment that corrects to normal for alveolar volume. There is no significant response to bronchodilator. Lack of response to bronchodilator should not preclude use if clinically indicated. Marium Godinez MD
== END 2023-09-28 12:34 | disposition home or self-care (01) ==
LOC: ANHPFT 12:35
PROVIDERS: PCP Family Medicine; Visit Provider Physician Assistant
DX: R06.09 Other forms of dyspnea (principal); R05.9 Cough, unspecified
CPT/HCPCS: 94060; 94726; 94729

== ENCOUNTER 2023-11-23 10:06 | Outpatient (CLI) | payer MEDICARE, SELFPAY ==
[2023-11-23 13:13] LABS: Basophils Absolute Auto 0.1 K/mm3 (0.0-0.1); Basophils Percent Auto 0.7 % (0.2-1.2); Eosinophils Absolute Auto 0.6 K/mm3 (0-0.3); Eosinophils Percent Auto 6.5 % (0-4.4); Hematocrit 33.6 % (37.0-47.0); Hemoglobin 10.2 g/dL (12.0-15.0); Immature Granulocyte Absolute 0.05 K/mm3 (0.00-0.031); Immature Granulocyte Percent A 0.5 % (0-0.5); Lymphocytes Absolute Auto 2.69 K/mm3 (0.9-3.2); Lymphocytes Percent Auto 28.2 % (18.3-44.2); Mean Corpuscular HGB Conc 30.4 g/dl (32-36); Mean Corpuscular Hemoglobin 31.3 pg (26-34); Mean Corpuscular Volume 103.1 fl (80-100); Mean Platelet Volume 11.3 fl (7.4-10.4); Monocytes Absolute Auto 0.7 K/mm3 (0.1-0.6); Neutrophils Absolute Auto 5.4 K/mm3 (1.3-6.7); Neutrophils Percent Auto 57.1 % (45.5-73.1); Platelet Count Result 274 k/mm3 (150-375); Red Blood Count 3.26 M/mm3 (4.2-5.4); Red Cell Distribution Width 17.2 % (11.5-14.5); White Blood Count 9.5 K/mm3 (4.5-10.0)
[2023-11-23 13:34] LABS: Alanine Aminotransferase 44 U/L (6-35); Albumin Level 4.3 g/dL (3.5-5.1); Alkaline Phosphatase 250 U/L (38-126); Anion Gap 10 mmol/L (8-16); Aspartate Amino Transferase 82 U/L (14-36); Blood Urea Nitrogen 51 mg/dL (7-17); Calcium 10.2 mg/dL (8.4-10.2); Carbon Dioxide 38 mmol/L (22-30); Chloride 95 mmol/L (98-107); Cholesterol 234 mg/dL (0-200); Estimated Glomerular Filt Rate 6; Glucose 179 mg/dL (65-110); HDL Direct 69 mg/dL; Potassium 4.7 mmol/L (3.4-5.0); Sodium 143 mmol/L (137-145); Triglycerides 107 mg/dL (<150); Uric Acid 4.6 mg/dL (2.5-7.5)
[2023-11-23 13:40] LABS: Vitamin D 25 Hydroxy 19.5 ng/mL
[2023-11-23 13:47] LABS: LDL Cholesterol Direct 89 mg/dL
== END 2023-11-23 10:07 | disposition home or self-care (01) ==
PROVIDERS: PCP Family Medicine; Visit Provider Family Medicine
DX: E78.5 Hyperlipidemia, unspecified (principal); E11.9 Type 2 diabetes mellitus without complications; I10 Essential (primary) hypertension; I89.0 Lymphedema, not elsewhere classified; E53.8 Deficiency of other specified B group vitamins; E55.9 Vitamin D deficiency, unspecified; M10.00 Idiopathic gout, unspecified site
CPT/HCPCS: 36415; 80053; 80061; 82306; 82607; 84443; 84550; 85025

== ENCOUNTER 2025-05-19 10:54 | Outpatient (CLI) | payer MEDICARE, SELFPAY ==
--- NOTE | ~2025-05-19 | US_ITS ---
EXAMINATION: US pelvic complete INDICATION: Postmenopausal bleeding Comparison:Ultrasound dated 11/02/2021 TECHNIQUE: Multiple transabdominal sonographic images of the pelvis performed. FINDINGS: The uterus measures 9.9 x 5.3 x 4.5 cm. There is a calcified uterine fibroid measuring 3.9 cm. The endometrial complex measures 12 mm. The right ovary is not visualized. Left ovary is unremarkable measuring 2.5 x 2.4 x 1.9 cm. There is no free fluid in the pelvis. There are no abnormal masses seen on either side. IMPRESSION: 1. Thickened endomtrial complex. The differential diagnosis includes endometrial hyperplasia, polyp a nd carcinoma. Biopsy is recommended. 2: Enlarged uterus with calcified uterine fibroid measuring 3.9 cm. Reviewed, dictated and finalized at location A. IMPRESSION: 1. Thickened endomtrial complex. The differential diagnosis includes endometria l hyperplasia, polyp and carcinoma. Biopsy is recommended. 2: Enlarged uterus with calcified uterine fibroid measuring 3.9 cm.
--- OUTSIDE RECORDS SUMMARY | 2025-05-19 11:22 | XMS_ITS | Encounter Summary ---
Author Organization [facility] Address [address] [place] [address] Phone Care Team Providers Care Spark Tester Name Role Phone Chelle Espinoza MD Unavailable [phone] Marguerite Fuchs MD Primary Care Provider Aft, Cesilia Allen MD PhD Unavailable Peter Joe MD Unavailable [phone] Catherine Cain Unavailable [phone] Encounter Details Date Type Department Care Team (Latest Contact Info) Description 12/03/2024 Orders Only [facility] Scanning, Provider Social History Tobacco Use Types Packs/Day Years Used Date Smoking Tobacco: Former Cigarettes 0.3 10 1 978 - 1988 Smokeless Tobacco: Never Alcohol Use Standard Drinks/Week Comments Not Currently 0 (1 standard drink = 0.6 oz pur e alcohol) AUDIT-C Answer Date Recorded Q1: How often do you have a drink containing alcohol? Never 08/30/2024 Q2: How many drinks containi ng alcohol do you have on a typical day when you are drinking? Patient does not drink Q3: How often do you have si x or more drinks on one occasion? Never 08/30/2024 Hunger Vital Sign Answer Date Recorded Within the past 12 months, y ou worried that your food would run out before you got the money to buy more. Never true 03/14/20 24 Within the past 12 months, t he food you bought just didn't last and you didn't have money to get more. Never true 03/14/2024 Personal Safety Answer Date Recorded Have you ever been in or are you currently in a harmful physical or emotional relationship or is someone making you feel afraid or unsafe? 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 Minimize further functional decline 2. Maximize quality of life 3. Control pain Strategies: - Activity/exercise program recommendation - Conservative stepwise pain medicine strategy with multi-disciplinary approach - Recommend healthy lifestyle strategies and compensatory methods as needed documented as of this encounter Procedures Procedure Name Priority Date/Time Associated Diagnosis Comments SCAN - LABS 12/03/2024 documented in this encounter Results * SCAN - LABS (12/03/2024) us Provider Scanning Final Result documented in this encounter Visit Diagnoses Not on filedocumented in this encounter Care Teams Spark Tester Relationship Specialty Start Date End Date Marguerite Fuchs MD PCP - General Family Practice 10/27/20 Chelle Espinoza MD Referring Physician Endocrinology Diabetes & Metabolism 03/06/20 Cesilia Aguilar MD PhD Surgeon Surgical Oncology 11/18/21 [place] [id number] [facility] [address] [place] [address] Consulting Physician Nephrology 05/12/24 Catherine Cain PA [address] [facility], [facility] [address] [place] [address] Physician Avionics Integration Engineer Physician Avionics Integration Engineer 05/17/25 documented as of this encounter
--- OUTSIDE RECORDS SUMMARY | 2025-05-19 11:22 | XMS_ITS | Clinical Summary ---
Author Organization [facility] Address [address] [place] [address] Phone Care Team Providers Care President And Chief Operating Officer Name Role Phone Unavailable Primary Care Provider Unavailabl e Encounters Date Type Department Care Team Description 04/05/2025 Orders Only [facility] [address] [facility], [address] [place], [place] [id number] Lizz Rider NP from Last 3 Months Social History Tobacco Use Types Packs/Day Years Used Date Smoking Tobacco: Never Assessed Comments Unknown Sex and Gender Information Value Date Recorded Sex Assigned at Not on file Legal Sex Female 2:20 PM MST Gender Identity Not on file Sexual Orientation Not on file Plan of Treatment Health Maintenance Due Date Last Done Comments Pneumococcal PPSV23/PCV13 65 + Years / High and Highest Risk (1 of 5 - PCV) 1977 Influenza Vaccine (#1) 2025 Insurance MEDICARE [facility]
--- OUTSIDE RECORDS SUMMARY | 2025-05-19 11:23 | XMS_ITS ---
Author Organization [facility] Address [address] [place] [address] Care Team Providers Care Riding Teacher Name Role Phone Chelle Espinoza MD Unavailable Marguerite Fuchs MD Primary Care Provider Aft, Cesilia Allen MD PhD Unavailable Peter Joe MD Unavailable Catherine Cain Unavailable Active Problems Problem Noted Date Diagnosed Date Spondylosis of lumbar region without myelopathy or radiculopathy 10/07/2022 Cluneal neuropathy 07/21/2022 Lumbar radicular pain 04/19/2022 Has immunity to COVID-19 virus 11/11/2021 Overview (11/11/2021): Pfizer vaccine 10/09/2021, 03/03/2021, 02/10/2021 Assessment & Plan (11/11/2021 12:12 PM RANGELAND MANAGEMENT SPECIALIST): Pfizer vaccine 10/09/2021, 03/03/2021, 02/10/2021 Abnormal findings on diagnostic imaging of breas t 11/09/2021 Sacroiliitis (CMS/HCC) - Bilateral 05/11/2021 Primary osteoarthritis of both knees 04/20/2021 Chronic low back pain 03/03/2021 Pneumonia due to COVID-19 virus 11/14/2020 COVID-19 11/14/2020 Combined 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 Not visually significant, recommend UV protection. Monitor. Assessment & Plan (10/26/2023 9:15 AM RANGELAND MANAGEMENT SPECIALIST): Defer cataract surgery until signs and symptoms indicate. Pt was educated on the diagnosis. Recommend daily UV eye protection. Assessment & Plan (10/27/2020 9:01 AM RANGELAND MANAGEMENT SPECIALIST): Not yet Visually significant; defer cataract extraction (CE) for now -given copy of new mRX for glasses Exotropia, alternating 10/27/2020 Assessment & Plan (02/17/2025 9:22 AM CDT): History of patching as a child. Patient notes infrequent diplopia when going from dark to bright, resolves after a few blinks. Monitor. BRBPR (bright red blood per rectum) 06/03/2020 Assessment & Plan (06/03/2020 4:39 AM CDT): BRBPR since Monday. Had 3 BMs since then, most recent in the ED, with roland blood estimated ~350cc per daughter. INR supratherapeutic at 5.5. Received KCENTRA in the ED. Hgb initially 8.5 (had Hgb of 10 one week prior). Further drop to 7.5. Complains of some SOB particularly when she walks around. Endorses s/sx of orthostasis. No chest pain. History of sigmoid colon diverticulosis c/f diverticulitis now. Physical exam with RLQ tenderness - unlikely location for diverticulitis. WBC initially normal, then increased to 12.5 - reactive vs infection in the GI. - Maintain 2 PIVs. - GI c/s in AM - Recheck Hgb q4hrs - Recheck INR - Hold Warfarin. S/p KCENTRA. Shoulder pain 06/03/2020 Assessment & Plan (06/03/2020 4:29 AM CDT): History of shoulder pain due to osteoarthritis per patient. - Continue APAP 1,000mg every 6 hours. Hypoglycemia associated with type 2 diabetes usama litus 11/22/2019 Assessment & Plan (03/06/2020 10:42 AM CDT): Serious reaction in October. Need to be very careful with her insulin dosing. Needs glucagon for rescue Assessment & Plan (11/23/2019 5:30 PM RANGELAND MANAGEMENT SPECIALIST): Due to insulin overdose (accidental) - continue to monitor as above and treat as needed per hypoglycemia protocol Assessment & Plan (11/22/2019 10:08 PM RANGELAND MANAGEMENT SPECIALIST): Due to insulin overdose (accidental) - continue to monitor as above and treat as needed per hypoglycemia protocol Cellulitis of leg, right 11/22/2019 Assessment & Plan (11/23/2019 5:30 PM RANGELAND MANAGEMENT SPECIALIST): Was seen by dermatology on 11/08/2019 at which time culture was performed. Patient has culture results which are positive for proteus mirabilis sensitive to ampicillin. She was prescribed ampicillin 500mg BID for 30 days per patient. - Continue ampicillin 500mg BID while inpatient Assessment & Plan (11/22/2019 10:49 PM RANGELAND MANAGEMENT SPECIALIST): Was seen by dermatology on 11/08/2019 at which time culture was performed. Patient has culture results which are positive for proteus mirabilis sensitive to ampicillin. She was prescribed ampicillin 500mg BID for 30 days per patient. - Continue ampicillin 500mg BID while inpatient - Hematochezia 07/30/2019 Assessment & Plan (08/04/2019 10:19 AM CDT): Setting of therapeutic anticoagulation with apixaban. See ABLA plans. Need for ongoing anticoagulation for IJ dvt. GI consulted. 08/02 EGD hiatal hernia otherwise unremarkable. Colonoscopy with hemorrhoids and diverticulum. Suspect from hemorrhoids. Restarted apixaban 08/03 and no recurrent episodes. Assessment & Plan (08/03/2019 10:39 AM CDT): Setting of therapeutic anticoagulation with apixaban. See ABLA plans. Off apixaban. Since IJ dvt still present and likely need ongoing anticoag. GI consulted. 08/02 EGD hiatal hernia otherwise unremarkable. Colonoscopy with hemorrhoids and diverticulum. Suspect from hemorrhoids. Retrial apixaban and monitor. Assessment & Plan (08/02/2019 9:09 AM CDT): Setting of therapeutic anticoagulation with apixaban. See ABLA plans. Off apixaban. Since IJ dvt still present and likely need ongoing anticoag. GI consulted and plan lower endoscopy in am. GI and renal to coordinate endoscopy and HD After golytely prep still with stool--additional golytely this am mercedes. Patient aware need for additional prep Keep npo Assessment & Plan (08/01/2019 10:05 AM CDT): Setting of therapeutic anticoagulation with apixaban. See ABLA plans. Off apixaban. Since IJ dvt still present and likely need ongoing anticoag. GI consulted and plan lower endoscopy in am. clears and bowel prep today. GI and renal to coordinate endoscopy and HD Assessment & Plan (07/31/2019 8:49 AM CDT): Setting of therapeutic anticoagulation with apixaban. See ABLA plans. Off apixaban. Since IJ dvt still present and likely need ongoing anticoag. GI consulted and anticipate lower endoscopy. Due to apixaban and ESRD plan endoscopy Monday. Tomorrow clears and bowel prep Assessment & Plan (07/30/2019 10:54 AM CDT): Setting of therapeutic anticoagulation with apixaban. See ABLA plans. Off apixaban. Since IJ dvt still present and likely need ongoing anticoag. Plan GI consult and anticipate lower endoscopy. Clears today and NPO after MN. Await GI recs prior to start bowel prep. Acute blood loss anemia 07/29/2019 Assessment & Plan (08/04/2019 10:16 AM CDT): LGIB and Setting of therapeutic anticoagulation and underlying AOCKD. Apixaban held. S/p 2 units PRBC and appropriate Hb response. Hb stable last few days. See GIB plans. Apixaban restarted and no recurrent hematochezia. Monitor Hb Assessment & Plan (08/03/2019 10:37 AM CDT): Setting of therapeutic anticoagulation for line associated RUE dvt, underlying AOCKD and hematochezia. Holding anticoagulation. S/p 2 units PRBC and appropriate Hb response. Hb stable last few days. See GIB plans Monitor with retrial of apixaban. Assessment & Plan (08/02/2019 9:06 AM CDT): Setting of therapeutic anticoagulation for line associated RUE dvt, underlying AOCKD and evidence of hematochezia. Holding anticoagulation. S/p 2 units PRBC and appropriate Hb response. Hb stable. Assessment & Plan (08/01/2019 10:04 AM CDT): Setting of therapeutic anticoagulation for line associated RUE dvt, underlying AOCKD and evidence of hematochezia. Holding anticoagulation. S/p 2 units PRBC and appropriate Hb response. Monitor for stability. Assessment & Plan (07/31/2019 8:45 AM CDT): Setting of therapeutic anticoagulation for line associated RUE dvt, underlying AOCKD and evidence of hematochezia. Holding anticoagulation. S/p 2 units PRBC and appropriate Hb response. Monitor for stability. Assessment & Plan (07/30/2019 10:56 AM CDT): Setting of therapeutic anticoagulation for line associated RUE dvt and hematochezia and underlying AOCKD. Holding anticoagulation. S/p 2 units PRBC and appropriate Hb response. Monitor with anticipated ongoing anticoagulation needs. Assessment & Plan (07/29/2019 11:47 AM CDT): Setting of therapeutic anticoagulation for line associated RUE dvt. Per patient nurse mentioned her stool was a little red Holding anticoagulation. PRBC and monitor Hb. Monitor for hematochezia. If recurrent LGIB or need for ongoing anticoagulation will consider GI input for endoscopy needs. Near syncope 07/22/2019 Assessment & Plan (08/04/2019 10:20 AM CDT): Orthostatic. Suspect from volume loss/ABLA and medications. Resolved with volume resuscitation and adjust of antihypertensive meds.Troponin neg x 2. CT head negative. Assessment & Plan (08/03/2019 10:40 AM CDT): Orthostatic. Suspect from volume loss/ABLA and medications. Resolved with volume resuscitation and adjust of antihypertensive meds.Troponin neg x 2. CT head negative. Assessment & Plan (08/02/2019 9:09 AM CDT): Orthostatic. Suspect from volume loss/ABLA and medications. Resolved with volume resuscitation and adjust of antihypertensive meds.Troponin neg x 2. CT head negative. Assessment & Plan (08/01/2019 10:06 AM CDT): Orthostatic. Suspect from volume loss/ABLA and medications. Resolved with volume resuscitation and adjust of antihypertensive meds.Troponin neg x 2. CT head negative. Assessment & Plan (07/31/2019 8:49 AM CDT): Orthostatic. Suspect from volume loss/ABLA and medications. Resolved with volume resuscitation and adjust of antihypertensive meds.Troponin neg x 2. CT head negative. Assessment & Plan (07/30/2019 10:54 AM CDT): Orthostatic. Suspect from volume loss/ABLA and medications. Improved with volume resuscitation and adjust of antihypertensive meds.Troponin neg x 2. CT head negative. Assessment & Plan (07/29/2019 11:38 AM CDT): Orthostatic. Suspect from volume loss/ABLA and medications. Improved with volume resuscitation and adjust of antihypertensive meds.Troponin neg x 2. CT head negative. No evidence of dysrhythmia, continue telemetry monitoring. Assessment & Plan (07/28/2019 11:57 AM CDT): Patient arrived to emergency department after several attempts to stand with acute dizziness and weakness with associated headache. Patient reports legs felt like jelly and gave out. likely orthostatic given hypotension. Initial orthostatics were positive and treated with gentle IVF, holding antihypertensives and renal adjusted dry weight. Troponin neg x 2. CT head negative. Afebrile, no leukocytosis, and no evidence of sepsis. S/p PT/OT evaluation with chronic debiliation (ESRD, morbid obesity, OA) & rec SNF. Patient agreeable to SNF placement, SW following. S/p HD 10/ and tolerated. No evidence of dysrhythmia, continue telemetry monitoring. SW following for SNF placement. Medically stable for transfer once bed available. No recurrent presyncope, orthostasis resolved. Continue PT/OT for debilitation. Insurance authorization delaying transfer. Await bed, update SW/CM in am. Assessment & Plan (07/27/2019 11:15 AM CDT): Patient arrived to emergency department after several attempts to stand with acute dizziness and weakness with associated headache. Patient reports legs felt like jelly and gave out. likely orthostatic given hypotension. Initial orthostatics were positive and treated with gentle IVF, holding antihypertensives and renal adjusted dry weight. Troponin neg x 2. CT head negative. Afebrile, no leukocytosis, and no evidence of sepsis. S/p PT/OT evaluation with chronic debiliation (ESRD, morbid obesity, OA) & rec SNF. Patient agreeable to SNF placement, SW following. S/p HD 10/ and tolerated. No evidence of dysrhythmia, continue telemetry monitoring. SW following for SNF placement. Medically stable for transfer once bed available. No recurrent presyncope, orthostasis resolved. Continue PT/OT for debilitation. Insurance authorization delaying transfer. Assessment & Plan (07/26/2019 11:38 AM CDT): Patient arrived to emergency department after several attempts to stand with acute dizziness and weakness with associated headache. Patient reports legs felt like jelly and gave out. likely orthostatic given hypotension. Initial orthostatics were positive and treated with gentle IVF, holding antihypertensives and renal adjusted dry weight. Troponin neg x 2. CT head negative. Afebrile, no leukocytosis, and no evidence of sepsis. S/p PT/OT evaluation with chronic debiliation (ESRD, morbid obesity, OA) & rec SNF. Patient agreeable to SNF placement, SW following. S/p HD 10/1 and tolerated. No evidence of dysrhythmia, continue telemetry monitoring. SW following for SNF placement. Medically stable for transfer once bed available. No recurrent presyncope, orthostasis resolved. Continue PT/OT for debilitation. Assessment & Plan (07/25/2019 11:15 AM CDT): Patient arrived to emergency department after several attempts to stand with acute dizziness and weakness with associated headache. Patient reports legs felt like jelly and gave out. likely orthostatic given hypotension. Initial orthostatics were positive and treated with gentle IVF, holding antihypertensives and renal adjusted dry weight. Troponin neg x 2. CT head negative. Afebrile, no leukocytosis, and no evidence of sepsis. S/p PT/OT evaluation with chronic debiliation (ESRD, morbid obesity, OA) & rec SNF. Patient agreeable to SNF placement, SW following. S/p HD 10/1 and tolerated. No evidence of dysrhythmia, continue telemetry monitoring. SW following for SNF placement. Medically stable for transfer once bed available. No recurrent presyncope, orthostasis resolved. Assessment & Plan (07/24/2019 2:01 PM CDT): Patient arrived to emergency department after several attempts to stand with acute dizziness and weakness with associated headache. Patient reports legs felt like jelly and gave out. likely orthostatic given hypotension. Troponin neg x 2. CT head negative. Afebrile, no leukocytosis, no evidence of sepsis. - PT/OT evaluation - chronic debiliation (ESRD, morbid obesity, OA). patient agreeable to SNF placement - orthostatics were positive and treated with gentle IVF, holding antihypertensives and renal adjusted dry weight. S/p HD 10/1 and tolerated. No evidence of dysrhythmia, continue telemetry monitoring. SW following for SNF placement. Medically stable for transfer once bed available. Assessment & Plan (07/23/2019 1:49 PM CDT): Patient arrived to emergency department after several attempts to stand with acute dizziness and weakness with associated headache. Patient reports legs felt like jelly and gave out. likely orthostatic given hypotension. Troponin neg x 2. CT head negative. - PT/OT evaluation - patient agreeable to SNF placement - orthostatic VS - in process - continue telemetry Assessment & Plan (07/22/2019 6:30 PM CDT): Patient arrived to emergency department after several attempts to stand with acute dizziness and weakness with associated headache. Patient reports legs felt like jelly and gave out. Ddx includes orthostatic hypotension, deconditioning, vasovagal, and less likely posterior cerebellar infarction (no focal neuro deficits). Troponin neg x 2. CT head negative. - PT/OT evaluation - patient agreeable to SNF placement - orthostatic VS - telemetry - prn tylenol for headache Pain of left hand 07/19/2019 Assessment & Plan (07/19/2019 10:44 AM CDT): Xray shows nothing acute Likely from the fall Keep hand elevated when possible to reduce swelling. Endometrial thickening on ultrasound 07/17/2019 Assessment & Plan (07/17/2019 10:18 AM CDT): Pt had MRI for elevated alk phos and that imaging suggested endometrial thickening to be further evaluated by US Pt has publishing specialist and has appointment coming up This finding was discussed and she will follow up with them Diabetes mellitus 07/10/2019 Assessment & Plan (08/13/2024 12:40 PM CDT): - Diabetes is complicated by neuropathy, end-stage renal disease on hemodialysis, hypertension, hyperlipidemia and obesity. 90-day Dexcom GMI 7.6%, above goal. Lab Results Component Value Date HGBA1C 6.8 02/22/2022 Per [employer], goal A1c is less 7% without significant hypoglycemia. - Management Goal: taking Lyumjev before eating - Continue current insulin regimen - Continue Dexcom G7 CGM - Discussed action time of Lyumjev. Advised bolusing 10-15 minutes before each meal. - Advised annual dilated eye exam - UTD. - Advised checking blood glucose before driving - Discussed hypoglycemia risk, and treatment such as the rule of 15s and the use of glucagon. Will send prescription. - Update me on consistent glycemia excursions or if there is any hypoglycemia. - Advised and ensured that I am available via phone or MyChart if they have any concerns for hypo/hyperglycemia, medication refills, etc. Assessment & Plan (08/26/2019 7:42 AM RANGELAND MANAGEMENT SPECIALIST): No longer requires insulin therapy now that she is on dialysis Assessment & Plan (08/04/2019 10:16 AM CDT): Diet controlled. Last month Hemoglobin A1c 5.7. accuchecks and SSI, Assessment & Plan (08/03/2019 10:40 AM CDT): Diet controlled. Last month Hemoglobin A1c 5.7. accuchecks and SSI, Assessment & Plan (08/02/2019 9:07 AM CDT): Diet controlled. Last month Hemoglobin A1c 5.7. accuchecks and SSI, Assessment & Plan (08/01/2019 10:06 AM CDT): Diet controlled. Last month Hemoglobin A1c 5.7. Monitoring TID accuchecks. On SSI, ADA diet. Assessment & Plan (07/31/2019 8:49 AM CDT): Diet controlled. Last month Hemoglobin A1c 5.7. Monitoring TID accuchecks. On SSI, ADA diet. Assessment & Plan (07/30/2019 10:55 AM CDT): Diet controlled. Last month Hemoglobin A1c 5.7. Monitoring TID accuchecks. On SSI, ADA diet. Assessment & Plan (07/29/2019 11:37 AM CDT): Diet controlled. Last month Hemoglobin A1c 5.7. Monitoring TID accuchecks. On SSI, ADA diet. Assessment & Plan (07/28/2019 11:59 AM CDT): Diet controlled. Hemoglobin A1c 5.7 well controlled as o/p. Monitoring TID accuchecks. On SSI, ADA diet. Continue gabapentin for peripheral diabetic neuropathy. May have possible component of autonomic neuropathy, as well, given orthostasis as above, however this did correct with antihypertensive adjustments. Assessment & Plan (07/27/2019 11:16 AM CDT): Diet controlled. Hemoglobin A1c 5.7 well controlled as o/p. Monitoring TID accuchecks. On SSI, ADA diet. Continue gabapentin for peripheral neuropathy. May have component of autonomic neuropathy, as well, given orthostasis as above. Assessment & Plan (07/26/2019 11:40 AM CDT): Diet controlled. Hemoglobin A1c 9/4 5.7 well controlled as o/p. Monitoring TID accuchecks. On SSI, ADA diet. Continue gabapentin for peripheral neuropathy. May have component of autonomic neuropathy, as well, given orthostasis as above. Assessment & Plan (07/25/2019 11:16 AM CDT): Diet controlled. Hemoglobin A1c 9/4 5.7 well controlled as o/p. Monitoring TID accuchecks. On SSI, ADA diet. Continue gabapentin for peripheral neuropathy. May have component of autonomic neuropathy, as well, given orthostasis as above. Assessment & Plan (07/24/2019 2:03 PM CDT): Diet controlled. Hemoglobin A1c 9/4 5.7 well controlled as o/p. Monitoring TID accuchecks. On SSI, ADA diet. Continue gabapentin for peripheral neuropathy. May have component of autonomic neuropathy, as well, given orthostasis as above. Assessment & Plan (07/23/2019 1:56 PM CDT): Diet controlled. Hemoglobin A1c 9/4 5.7. -TID poct - continue gabapentin for peripheral neuropathy Assessment & Plan (07/22/2019 6:31 PM CDT): Diet controlled. Hemoglobin A1c 9/4 5.7. -TID poct - gabapentin for peripheral neuropathy Assessment & Plan (07/16/2019 9:42 AM CDT): - Diet controlled, monitor with BMPs Assessment & Plan (07/11/2019 5:23 PM CDT): - Diet controlled, monitor with BMPs Assessment & Plan (07/10/2019 10:48 PM CDT): - Diet controlled, monitor with BMPs Elevated alkaline phosphatase level 07/02/2019 Assessment & Plan (07/19/2019 10:43 AM CDT): - Noted last admission, seen by Hepatology who will follow up outpatient. - MRI with no biliary ductal dilation, evidence of hemosiderosis. Neg AMA, milldly positive ZENON. No c/o pruritis. - F/u as outpatient Assessment & Plan (07/18/2019 5:50 PM CDT): - Noted last admission, seen by Hepatology who will follow up outpatient. - MRI with no biliary ductal dilation, evidence of hemosiderosis. Neg AMA, milldly positive ZENON. No c/o pruritis. - F/u as outpatient Assessment & Plan (07/17/2019 10:14 AM CDT): - Noted last admission, seen by Hepatology who will follow up outpatient. - MRI with no biliary ductal dilation, evidence of hemosiderosis. Neg AMA, milldly positive ZENON. No c/o pruritis. - F/u as outpatient Assessment & Plan (07/16/2019 9:42 AM CDT): - Noted last admission, seen by Hepatology who will follow up outpatient. - MRI with no biliary ductal dilation, evidence of hemosiderosis. Neg AMA, milldly positive ZENON. No c/o pruritis. - F/u as outpatient Assessment & Plan (07/11/2019 5:22 PM CDT): - Noted last admission, seen by Hepatology who will follow up outpatient. - MRI with no biliary ductal dilation, evidence of hemosiderosis. Neg AMA, milldly positive ZENON. No c/o pruritis. - F/u as outpatient Assessment & Plan (07/10/2019 10:51 PM CDT): - Noted last admission, seen by Hepatology who will follow up outpatient. MRI with no biliary ductal dilation, evidence of hemosiderosis. Neg AMA, milldly positive ZENON. No c/o pruritis. Assessment & Plan (07/04/2019 10:20 AM CDT): Alk Phos near 795 on 07/02 after remaining stable in 300s previously during this admission. In light of GGT elevated to 377, likely hepatic source. S/p CCK. AST mildly elevated to 62, but other LFTs WNL. 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 Had a catheter for HD in [facility]. Initially managed with eliquis but transitioned to warfarin due to insurance. - Holding warfarin due to probable GI bleed. - KCENTRA in the ED for INR of 5.5 Assessment & Plan (08/04/2019 10:20 AM CDT): Chronic and present on admission. Hx VTE right IJ associated w/ HD catheter on dopplers 9/5 and line removal. Has been on therapeutic anticoagulation with apixaban. Anticoagulation on hold with ABLA--see plans. Repeat RUE doppler still with clot present. GIB work up neg. Restarted apixaban. Assessment & Plan (08/03/2019 10:40 AM CDT): Chronic and present on admission. Hx VTE right IJ associated w/ HD catheter on dopplers 9/5 and line removal. Has been on therapeutic anticoagulation with apixaban. Anticoagulation on hold with ABLA. Repeat RUE doppler still with clot present. GIB work up as noted. Retrial apixaban. Assessment & Plan (08/02/2019 9:09 AM CDT): Chronic and present on admission. Hx VTE right IJ associated w/ HD catheter on dopplers 9/5 and line removal. Has been on therapeutic anticoagulation with apixaban. Anticoagulation on hold with ABLA. Repeat RUE doppler still with clot present. GIB work up prior to restarting anticoagulation. Assessment & Plan (08/01/2019 10:06 AM CDT): Chronic and present on admission. Hx VTE right IJ associated w/ HD catheter on dopplers 9/5 and line removal. Has been on therapeutic anticoagulation with apixaban. Anticoagulation on hold with ABLA. Repeat RUE doppler still with clot present. GIB work up prior to restarting anticoagulation. Assessment & Plan (07/31/2019 8:50 AM CDT): Chronic and present on admission. Hx VTE right IJ associated w/ HD catheter on dopplers 9/5 and line removal. Has been on therapeutic anticoagulation with apixaban. Anticoagulation on hold with ABLA. Repeat RUE doppler still with clot present. GIB work up prior to restarting anticoagulation. Assessment & Plan (07/30/2019 10:55 AM CDT): Chronic and present on admission. Hx VTE right IJ associated w/ HD catheter on dopplers 9/5 and line removal. Has been on therapeutic anticoagulation with apixaban. Anticoagulation on hold with ABLA. Repeat RUE doppler still with clot present. GIB work up prior to restarting anticoagulation. Assessment & Plan (07/29/2019 11:40 AM CDT): Hx VTE right IJ associated w/ HD catheter on dopplers 9/5 and line removal. Has been on therapeutic anticoagulation with apixaban. Anticoagulation on hold with ABLA. Follow up RUE doppler for status of thrombus as line previously removed. Assessment & Plan (07/28/2019 12:01 PM CDT): H/o VTE right IJ associated w/ HD catheter which was removed 07/18. Still had some RUE swelling on admit, improved per patient. Now resolved. Continue eliquis 2.5 bid. Distal vasculature intact with good hand perfusion. Assessment & Plan (07/27/2019 11:18 AM CDT): H/o VTE right IJ associated w/ HD catheter which was removed 07/18. Still had some RUE swelling on admit, improved per patient. Continue eliquis 2.5 bid. Distal vasculature intact with good hand perfusion. Assessment & Plan (07/26/2019 11:43 AM CDT): H/o VTE right IJ associated w/ HD catheter which was removed 07/18. Still has some RUE swelling, improved per patient. Continue eliquis 2.5 bid. Distal vasculature intact with good hand perfusion. Assessment & Plan (07/25/2019 11:19 AM CDT): H/o VTE right IJ associated w/ HD catheter which was removed 07/18. Still has some RUE swelling, improved per patient. Continue eliquis 2.5 bid. Distal vasculature intact with good hand perfusion. Assessment & Plan (07/24/2019 2:13 PM CDT): H/o VTE right IJ associated w/ HD catheter which was removed 07/18. Still has some RUE swelling, improved per patient. - continue eliquis 2.5 bid. Distal vasculature intact with good hand perfusion. Assessment & Plan (07/23/2019 1:55 PM CDT): H/o VTE right IJ associated w/ HD catheter which was removed 07/18 - continue eliquis 2.5 bid Assessment & Plan (07/22/2019 6:17 PM CDT): H/o VTE right IJ associated w/ HD catheter which was removed 07/18. - continue eliquis 2.5 bid Assessment & Plan (07/19/2019 10:43 AM CDT): - Age indeterminate R IJ thrombus seen on duplex last admission, associated with HD line - Continue apixaban 2.5mg BID for duration of 3 mo from start Assessment & Plan (07/18/2019 5:50 PM CDT): - Age indeterminate R IJ thrombus seen on duplex last admission, associated with HD line - Continue apixaban 2.5mg BID for duration of 3 mo from start Assessment & Plan (07/17/2019 10:13 AM CDT): - Age indeterminate R IJ thrombus seen on duplex last admission, associated with HD line - Continue apixaban 2.5mg BID for duration of 3 mo from start Assessment & Plan (07/16/2019 9:41 AM CDT): - Age indeterminate R IJ thrombus seen on duplex last admission, associated with HD line - Continue apixaban 2.5mg BID Assessment & Plan (07/11/2019 5:22 PM CDT): - Age indeterminate R IJ thrombus seen on duplex last admission, associated with HD line - Continue apixaban 2.5mg BID Assessment & Plan (07/10/2019 10:46 PM CDT): - Age indeterminate R IJ thrombus seen on duplex last admission, associated with HD line - Started on Eliquis, ok to hold briefly in case knee injection required - SQ hep 7500 TID Assessment & Plan (07/03/2019 8:46 AM CDT): Acute versus chronic DVT seen in RUE extending into IJ. - Starting Apixiban 2.5 mg BID Skin lesion of lower extremity 06/26/2019 Assessment & Plan (06/29/2019 12:10 PM CDT): Reportedly due to friction - medial aspects of bilateral lower extremities. Skin breakdown to soft tissue. Saw PCP 06/19 and was given IM Rocephin, as well as started on PO Bactrim. - D/C bactrim - Wound consult - dressing to left leg wound. Right wound appeared indurated, erythematous, and TTP morning of 06/27. No discharge and reportedly still improving from previous. Will continue to monitor. - ACCS consulted - no need for surgery, recommend compression stockings, wound care Fever 06/26/2019 Assessment & Plan (07/02/2019 4:13 PM CDT): Patient noted temperature to 103 on morning of 06/26. Temperature to 102 on presentation. CXR with cephalization of pulm vessels, but no consolidations suggestive of PNA. She had a recent graft placed in RUE for dialysis. Also has tunneled line currently. Was treated with IM Rocephin and PO Bactrim starting 06/20 for skin wounds to the bilateral lower extremity. ROS notable for emesis, headache, productive cough. Ddx UTI, Drug reaction, wound infection, PNA, less likely PE, Viral Gastroenteritis - UA with 11-20 WBC, 2+ LE, bacteria. Urine culture negative. - Blood cultures NGTD, RVP negative - CXR with decreased size of RLL opacity following iHD, likely alveolar edema - BLE/BUE venous duplex with acute on chronic DVT in RUE, otherwise negative. No plans for AC at this time. - RUQ US negative - ACCS consulted to evaluate bilateral medial thigh wounds - no concern this could be causing infection - S/p vanc/cefe in ED. Not on antibiotics currently. - AV fistula US unremarkable GERD (gastroesophageal reflux disease) 9 Assessment & Plan (06/26/2019 3:40 PM CDT): Continue home pantoprazole 40mg Gout 06/26/2019 Assessment & Plan (11/23/2019 5:30 PM RANGELAND MANAGEMENT SPECIALIST): Continue allopurinol Assessment & Plan (11/22/2019 10:03 PM RANGELAND MANAGEMENT SPECIALIST): Continue allopurinol Assessment & Plan (07/16/2019 9:40 AM CDT): - Cont home allopurinol, no roland evidence of acute gout attack Assessment & Plan (07/11/2019 5:22 PM CDT): - Cont home allopurinol, no roland evidence of acute gout attack Assessment & Plan (07/10/2019 10:49 PM CDT): - Cont home allopurinol Assessment & Plan (06/26/2019 3:41 PM CDT): Continue home allopurinol Hypoxia 06/26/2019 Assessment & Plan (06/28/2019 1:15 PM CDT): Patient reportedly with JASON on CPAP at night. Patient presents with cough for one day productive of yellow sputum and initial O2 sats in 80s. Previous BNP ~4,000, now with BNP to 10,600. Previous Echo in 03/2019 with LV EF of 74% and PASP of 55mmHg. Likely secondary to increased pulmonary arterial pressures, HFpEF, CTEPH, decreased chest wall compliance - Improved following diuresis, saturating well on RA - Continue nightly CPAP ESRD (end stage renal disease) on dialysis 04/29 Overview (05/05/2023): Dialysis M-W-F Assessment & Plan (05/17/2025 8:44 PM CDT): Need optimal glycemic control, minimize risk of hypoglycemia. Assessment & Plan (02/12/2025 2:43 PM CDT): - On HD T/T/S - Need to avoid hypoglycemia. Continue Dexcom G7 CGM for safety. Assessment & Plan (11/15/2024 9:09 PM RANGELAND MANAGEMENT SPECIALIST): Managed by renal, need to minimize risk of hypoglycemia. Assessment & Plan (05/12/2024 2:26 PM CDT): Managed by renal, need to minimize risk of hypoglycemia. Assessment & Plan (02/08/2024 8:40 PM CDT): Managed by renal, need to minimize risk of hypoglycemia. Assessment & Plan (08/16/2023 8:16 PM CDT): Managed by renal, need to minimize risk of hypoglycemia. Different doses on dialysis days. Assessment & Plan (05/05/2023 3:36 PM CDT): Managed by renal, need to minimize risk of hypoglycemia. Different doses on dialysis days. Assessment & Plan (01/19/2023 9:50 AM CDT): Need to minimize risk of hypoglycemia. Assessment & Plan (10/20/2022 10:20 AM RANGELAND MANAGEMENT SPECIALIST): Need to minimize risk of hypoglycemia. Assessment & Plan (07/07/2022 11:34 AM CDT): Minimize risk of hypoglycemia. Assessment & Plan (02/23/2022 10:23 AM CDT): Minimize risk of hypoglycemia. Assessment & Plan (03/17/2021 2:37 PM CDT): Managed by renal, need to minimize risk of hypoglycemia Assessment & Plan (06/03/2020 4:14 AM CDT): ESRD on HD since 03/2019. Hyperkalemia in the ED - K whole blood 5.1 Anemia 2/2 CKD, on darbapoetin alpha in HD once a week on Fridays. - c/s to nephrology for HD. - continue Renvela 800mg x2 with each meal Assessment & Plan (03/06/2020 10:43 AM CDT): Managed by renal, need to minimize risk of hypoglycemia Assessment & Plan (11/23/2019 5:30 PM RANGELAND MANAGEMENT SPECIALIST): HD MWF Access: Last HD: 11/20 (mon). She had rescheduled her outpatient HD for today (Thursday 11/23 at 10:30am) - consult renal given elevating blood sugars, will need regimen going forward with current infection. Assessment & Plan (11/23/2019 5:20 PM RANGELAND MANAGEMENT SPECIALIST): HD MWF Access: Last HD: 11/20 (mon). She had rescheduled her outpatient HD for today (Thursday 11/23 at 10:30am) - consult renal given elevating blood sugars, will need regimen going forward with current infection. Assessment & Plan (08/26/2019 7:43 AM RANGELAND MANAGEMENT SPECIALIST): No longer requires insulin therapy. Assessment & Plan (08/04/2019 10:17 AM CDT): HD MWF via LUE AVF - renal consulted. Assessment & Plan (08/03/2019 10:37 AM CDT): HD MWF via LUE AVF - renal consulted. Assessment & Plan (08/02/2019 9:07 AM CDT): HD MWF via LUE AVF - renal consulted. GI and renal coordinating endoscopy and HD Assessment & Plan (08/01/2019 10:06 AM CDT): HD MWF via LUE AVF - renal consulted. GI and renal to coordinate endoscopy and HD Assessment & Plan (07/31/2019 8:49 AM CDT): HD MWF via LUE AVF - renal consulted. Assessment & Plan (07/30/2019 10:55 AM CDT): On HD MWF via LUE AVF - renal consulted. Assessment & Plan (07/29/2019 11:36 AM CDT): On HD MWF via LUE AVF - renal consulted. Assessment & Plan (07/28/2019 11:59 AM CDT): On HD MWF - tolerated 07/23 & 07/25. no current electrolyte abnormalities. Adjusting antihypertensives: decrease coreg 6.25 BID, continue zemplar TThSat, serum phos with AM labs, held losartan. No plans to resume. Continue selevamer. Dialysis per renal. On . Next monday. AVF site looks ok. Assessment & Plan (07/27/2019 11:16 AM CDT): On HD MWF - tolerated 07/23 & 07/25. no current electrolyte abnormalities. Adjusting antihypertensives: decrease coreg 6.25 BID, continue zemplar TThSat, serum phos with AM labs, held losartan. No plans to resume. Continue selevamer. Dialysis per renal. On RA. Assessment & Plan (07/26/2019 11:41 AM CDT): On HD MWF - tolerated 07/23 & 07/25. no current electrolyte abnormalities. Adjusting antihypertensives: decrease coreg 6.25 BID, continue zemplar TThSat, serum phos with AM labs, hold losartan. No plans to resume. Continue selevamer. Dialysis per renal. Assessment & Plan (07/25/2019 11:16 AM CDT): On HD MWF - tolerated 07/23. no current electrolyte abnormalities. Adjusting antihypertensives: decrease coreg 6.25 BID, continue zemplar TThSat, serum phos with AM labs, hold losartan. No plans to resume. Continue selevamer. Dialysis per renal. Assessment & Plan (07/24/2019 2:04 PM CDT): On HD MWF - tolerated 07/23. no current electrolyte abnormalities. Adjusting antihypertensives: decrease coreg 6.25 BID, continue zemplar TThSat, serum phos with AM labs, hold losartan. Continue selevamer. Assessment & Plan (07/23/2019 1:55 PM CDT): On HD MWF - completed session today. - no current electrolyte abnormalities - rec per renal - decrease coreg 6.25 BID, zemplar TThSat, serum phos with AM labs, hold losartan. Assessment & Plan (07/22/2019 6:14 PM CDT): On HD MWF, missed session today. - nephrology consulted in ED, aware. Plan for dialysis tomorrow. - no current electrolyte abnormalities, repeat bmp in am Assessment & Plan (07/19/2019 10:43 AM CDT): - Gets HD MWF through line. Recent PTFE graft placement, per vascular appt 07/08 is now ready for use - Started paricalcitol per renal - Renal consulted for inpatient HD - HD catheter removal by IR; will restart now that it is removed. Assessment & Plan (07/18/2019 5:50 PM CDT): - Gets HD MWF through line. Recent PTFE graft placement, per vascular appt 07/08 is now ready for use - Started paricalcitol per renal - Renal consulted for inpatient HD - HD catheter removal by IR; will restart now that it is removed. Assessment & Plan (07/17/2019 10:12 AM CDT): - Gets HD MWF through line. Recent PTFE graft placement, per vascular appt 07/08 is now ready for use - Started paricalcitol per renal - Renal consulted for inpatient HD - HD catheter removal by IR - AC held Assessment & Plan (07/16/2019 9:37 AM CDT): - Gets HD MWF through line. Recent PTFE graft placement, per vascular appt 07/08 is now ready for use - Started paricalcitol per renal - Renal consulted for inpatient HD - IR reports they generally only remove HD catheters as outpatient - can plan for outpatient removal with renal Assessment & Plan (07/13/2019 6:12 PM CDT): - Gets HD MWF through line. Recent PTFE graft placement, per vascular appt 07/08 is now ready for use - Started paricalcitol per renal - Renal consulted for inpatient HD - IR reports they generally only remove HD catheters as outpatient - can plan for outpatient removal with renal Assessment & Plan (07/10/2019 10:48 PM CDT): - Gets HD MWF through line. 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 She was recently started on dialysis during 04/2019 admission, at which time she was found to have Cr > 5 and fluid overload. Patient continues to make urine, reporting around 2 voids daily, but also gets dialyzed MWF. - Consult to nephrology - Continue home Darbepoetin - Continue home pericalcitrol for Hyperparathyroidism Chronic pain of both knees 04/22/2019 Overview (04/22/2019): Bilateral, chronic, likely OA 2/2 to morbid obesity. --Tylenol 650 q4h PRN --Lidocaine 5% patches to both knees Assessment & Plan (07/28/2019 12:00 PM CDT): Recent admission 07/10-07/19 for OA bilateral knee pain. Patient discharge with home PT/OT/detention which has not been initiated. Continue lidocaine patch bilateral knees, oral prn tylenol and diclofenac dose increased to 4gm with improvement. Encouraged patient to use medications to improve mobility with therapy and agreeable. PT/OT for debilitation. Await SNF, insurance approval still pending while accepted by facility. Appears well controlled on current regimen. Assessment & Plan (07/27/2019 11:16 AM CDT): Recent admission 07/10-07/19 for OA bilateral knee pain. Patient discharge with home PT/OT/detention which has not been initiated. Continue lidocaine patch bilateral knees, oral prn tylenol and diclofenac dose increased to 4gm with improvement. Encouraged patient to use medications to improve mobility with therapy and agreeable. PT/OT for debilitation. Await SNF, insurance approval still pending while accepted by facility. Assessment & Plan (07/26/2019 11:41 AM CDT): Recent admission 07/10-07/19 for OA bilateral knee pain. Patient discharge with home PT/OT/detention which has not been initiated. Continue lidocaine patch bilateral knees, oral prn tylenol and diclofenac dose increased to 4gm with improvement. Encouraged patient to use medications to improve mobility with therapy and agreeable. PT/OT for debilitation. Await SNF, insurance approval still pending. Assessment & Plan (07/25/2019 11:17 AM CDT): Recent admission 07/10-07/19 for OA bilateral knee pain. Patient discharge with home PT/OT/detention which has not been initiated. Continue lidocaine patch bilateral knees, oral prn tylenol and diclofenac dose increased to 4gm with improvement. Encouraged patient to use medications to improve mobility with therapy and agreeable. PT/OT for debilitation. Await SNF Assessment & Plan (07/24/2019 2:04 PM CDT): Recent admission 07/10-07/19 for bilateral knee pain. Patient discharge with home PT/OT/detention which has not been initiated. -continue lidocaine patch bilateral knees -continue prn tylenol and diclofenac PT/OT for debilitation. Assessment & Plan (07/23/2019 1:55 PM CDT): Recent admission 07/10-07/19 for bilateral knee pain. Patient discharge with home PT/OT/detention which has not been initiated. -continue lidocaine patch bilateral knees -continue prn tylenol and diclofenac Assessment & Plan (07/22/2019 6:15 PM CDT): Recent admission 07/10-07/19 for bilateral knee pain. Patient discharge with home PT/OT/detention which has not been initiated. -continue lidocaine patch bilateral knees -prn tylenol and diclofenac Assessment & Plan (07/19/2019 10:41 AM CDT): - Acute increase in chronic OA knee pain due to mechanical fall. Now unable to bear weight - no increased warmth/redness on any specific side. - Cont APAP. OK for short term ibuprofen as already ESRD and no renally cleared active metabolities. Oxycodone for breakthrough pain. - Films in ED without evidence of fracture and small effusion on R side - Patient with very limited mobility - though pain improving - PT/OT, both rec'd acute rehab. SW assisting. Assessment & Plan (07/18/2019 5:49 PM CDT): - Acute increase in chronic OA knee pain due to mechanical fall. Now unable to bear weight - no increased warmth/redness on any specific side. - Cont APAP. OK for short term ibuprofen as already ESRD and no renally cleared active metabolities. Oxycodone for breakthrough pain. - Films in ED without evidence of fracture and small effusion on R side - Patient with very limited mobility - though pain improving - PT/OT, both rec'd acute rehab. SW assisting. Assessment & Plan (07/17/2019 10:10 AM CDT): - Acute increase in chronic OA knee pain due to mechanical fall. Now unable to bear weight - no increased warmth/redness on any specific side. - Cont APAP. OK for short term ibuprofen as already ESRD and no renally cleared active metabolities. Oxycodone for breakthrough pain. - Films in ED without evidence of fracture and small effusion on R side - Patient with very limited mobility - though pain improving - PT/OT, both rec'd acute rehab. SW assisting. Assessment & Plan (07/16/2019 9:37 AM CDT): - Acute increase in chronic OA knee pain due to mechanical fall. Now unable to bear weight - no increased warmth/redness on any specific side. - Cont APAP. OK for short term ibuprofen as already ESRD and no renally cleared active metabolities. Oxycodone for breakthrough pain. - Films in ED without evidence of fracture and small effusion on R side - Patient with very limited mobility - though pain improving - PT/OT, both rec'd acute rehab. SW assisting. Assessment & Plan (07/15/2019 3:43 PM CDT): - Acute increase in chronic OA knee pain due to mechanical fall. Now unable to bear weight - no increased warmth/redness on any specific side. - Cont APAP. OK for short term ibuprofen as already ESRD and no renally cleared active metabolities. Oxycodone for breakthrough pain. - Films in ED without evidence of fracture and small effusion on R side - Patient with very limited mobility - though pain improving - PT/OT, both rec'd acute rehab. SW assisting. Assessment & Plan (07/10/2019 10:52 PM CDT): - Acute increase in chronic OA knee pain due to mechanical fall. Now unable to bear weight - Cont APAP. OK for short term ibuprofen as already ESRD and no renally cleared active metabolities. Oxycodone for breakthrough - Could consider bilateral knee injection by procedure team vs [facility] radiology for more acute relief, though would only help joint pain and not soft tissue injury. Will hold Eliquis (last dose PM 07/09) in case this option is needed - PT/OT, likely placement Assessment & Plan (06/26/2019 3:33 PM CDT): History of osteoarthritis. Ambulates with walker at baseline. Some baseline shortness of breath with activity. - Continue home tylenol PRN Shortness of breath 04/18/2019 Secondary hyperparathyroidism 01/09/2019 Assessment & Plan (11/23/2019 5:30 PM RANGELAND MANAGEMENT SPECIALIST): Continue phos binder - phos 4.9, prior to dialysis. - patient reports previously low and discontinued sevelamer Assessment & Plan (11/23/2019 5:23 PM RANGELAND MANAGEMENT SPECIALIST): Continue phos binder - phos 4.9, prior to dialysis. - patient reports previously low and discontinued sevelamer Anemia of chronic renal failure 06/01/2018 Assessment & Plan (11/23/2019 5:29 PM RANGELAND MANAGEMENT SPECIALIST): Usually received darbopoietin on Fridays with HD. - CBC stable. Assessment & Plan (11/23/2019 5:18 PM RANGELAND MANAGEMENT SPECIALIST): Usually received darbopoietin on Fridays with HD. - CBC stable. Assessment & Plan (07/28/2019 12:00 PM CDT): Low at 7.3 - repeat Hb improved to 7.7. Plan to transfuse for Hb< 7 or if symptomatic. Usually, patient receives weekly darbepetin inj Q Monday, & resumed for inpt use. Monitor serial counts & remain stable at 7.7 on follow up. Assessment & Plan (07/27/2019 11:17 AM CDT): Low at 7.3 - repeat Hb improved to 7.7. Plan to transfuse for Hb< 7 or if symptomatic. Usually, patient receives weekly darbepetin inj Q Monday, & reordered. Monitor serial counts & remain stable at 7.7 on follow up. Assessment & Plan (07/26/2019 11:42 AM CDT): Low at 7.3 - repeat Hb improved to 7.7. Plan to transfuse for Hb< 7 or if symptomatic. Usually, patient receives weekly darbepetin inj Q Monday, & reordered. Monitor serial counts & remain stable. Assessment & Plan (07/25/2019 11:18 AM CDT): Low at 7.3 - repeat Hb improved to 7.7. Plan to transfuse for Hb< 7 or if symptomatic. Usually, patient receives weekly darbepetin inj Q Monday, & reordered. Monitor serial counts. Assessment & Plan (07/24/2019 2:12 PM CDT): Low at 7.3 - repeat cbc in AM up to 7.7. Plan to transfuse for Hb< 7 or if symptomatic. Usually, patient receives weekly darbepetin inj Q Monday, reordered. Monitor serial counts. Assessment & Plan (07/23/2019 1:50 PM CDT): Low at 7.3 - repeat cbc in AM - transfuse < 7 - patient receives weekly darbepetin inj on Monday Assessment & Plan (07/22/2019 6:11 PM CDT): At baseline, monitor - transfuse < 7 - patient receives weekly darbepetin inj on Monday Assessment & Plan (06/28/2019 1:12 PM CDT): Patient reports fatigue and found to have Hgb of 7.0. Has reportedly received transfusions in the past. - Transfuse for Hgb < 7, s/p 1U RBCs on 06/28 Assessment & Plan (04/23/2019 12:06 PM CDT): Patient with longstanding anemia 2/2 CKD, AoCD. Recent baseline Hgb ~7-8. 6.9 on presentation, initially held off transfusion 2/2 stable and c/f VOL. Ferritin>1000, TIBC low, iron wnl. Stable Hgb ~7 -S/p 1U pRBCs -->Hgb 7.0 -CTM Arthritis 09/22/2017 Congestive heart failure 09/22/2017 Fatigue 09/22/2017 Obesity 09/22/2017 Assessment & Plan (02/12/2025 2:42 PM CDT): - Start GLP1 and up-titrate as tolerated Assessment & Plan (08/13/2024 12:44 PM CDT): - Did not address lifestyle today - Consider GLP1-RA therapy Peripheral edema 09/22/2017 Pulmonary hypertension, unspecified 09/22/2017 Malignant neoplasm of kidney 09/11/2014 Tear film insufficiency 11/28/2013 Microalbuminuria 06/21/2013 Type 2 diabetes mellitus wit h complication, with long-term current use of insulin 06/20/2013 Overview (04/30/2025): 04/30/25 A1c 7.1% Assessment & Plan (05/17/2025 8:42 PM CDT): Glucoses high but variable ane with renal failure she is at higher risk for hypoglycemia. Would be a good candidate for a pump to stabilize levels and provide an important margin of safety. Assessment & Plan (02/17/2025 9:21 AM CDT): No diabetic retinopathy on exam today. Discussed importance of strict blood glucose control to reduce risk of ocular disease and vision loss. Monitor with annual DFE or sooner if changes to vision occur. Assessment & Plan (02/12/2025 2:41 PM CDT): - Diabetes is complicated by neuropathy, ESRD on HD, obesity and other co-morbidities. Control is above goal today with GMI of 8.6%. Lab Results Component Value Date HGBA1C 6.8 02/22/2022 Per [employer], goal A1c is less 7% without significant hypoglycemia. - Management Goal: GMI <7.5% - Start Mounjaro 2.5 mg weekly. Denied history of pancreatitis and medullary thyroid cancer. Denied family history of MEN syndrome. Review MOA, use and side effects. Advised that if she develops significant nausea, vomiting and/or abdominal pain to contact the office. - Increase Toujeo to 44 units nightly - Continue current Lyumjev dose for breakfast, increase to 28-32 units with lunch and dinner. Encouraged to bolus 5 units for snacks, especially if they include a carb. - Continue management with Dexcom G7 CGM. Given instructions on how to download Dexcom from home. - Advised bolusing <5 minutes before each meal. - Advised annual dilated eye exam - up to date. Encouraged to follow up as scheduled. - Advised checking blood glucose before driving - Discussed hypoglycemia risk, and treatment such as the rule of 15s and the use of glucagon. Prescription sent. - Labs externally ordered and printed for the patient. She is going to send most recent labs from dialysis to us. - Update me on consistent glycemia excursions or if there is any hypoglycemia. - Advised and ensured that I am available via phone or MyChart if they have any concerns for hypo/hyperglycemia, medication refills, etc. Assessment & Plan (11/15/2024 9:10 PM RANGELAND MANAGEMENT SPECIALIST): Overall glycemic control is within a reasonable range of control and safety. A1c 6.6% Assessment & Plan (05/12/2024 2:26 PM CDT): Glucoses a little high, but need to minimize risk of hypoglycemia. Assessment & Plan (02/08/2024 8:39 PM CDT): Glucoses very high after meals. Needs adjustments in basal and mealtime insulins. Assessment & Plan (10/26/2023 9:15 AM RANGELAND MANAGEMENT SPECIALIST): Pt ed. Stressed BG control (HbA1C<7) to reduce the risk for diabetic ocular complications. Lab Results Component Value Date HGBA1C 6.8 02/22/2022 Assessment & Plan (08/16/2023 8:17 PM CDT): Glucoses high after meals, tend to come down overnight. Needs more mealtime insulin. Assessment & Plan (05/05/2023 3:38 PM CDT): Daytime hyperglycemia, likely as Lantus wears off. Needs a longer-acting basal insulin to provide more consistent control and lower risk of hypoglycemia. Assessment & Plan (01/19/2023 10:47 AM CDT): Hemoglobin A1c increased to 9.5%. Continue using Dexcom for continuous monitoring and safety. She is taking Lantus PM daily, consistently. Recommend increasing Lantus to prevent hyperglycemia. She is taking Lyumjev with meals and using sliding scale. If BG is high before bed, she will also take a correction dose. She plans to work on taking Lyumjev before meals. She has an upcoming appointment with a dietitian. Diabetes education is beneficial for her as she is intelligent and motivated to manage her diabetes. Assessment & Plan (10/22/2022 12:48 PM RANGELAND MANAGEMENT SPECIALIST): Awaiting Hemoglobin A1c result; Dexcom report average BG is in the 250's and time In Range is 16%. Continue using Dexcom for continuous monitoring and safety. She is taking Lantus PM daily, consistently. Recommend increasing Lantus to prevent hyperglycemia. She is taking Humalog with meals and using sliding scale. Recommend increasing Humalog with all meals, within a good margin of safety, to prevent hyperglycemia. She plans to continue making diet changes to help better manage BG and she states she will start keeping a food diary again, which helps keep her on track. Diabetes education is beneficial for her as she is intelligent and motivated to manage her diabetes. Assessment & Plan (07/08/2022 3:24 PM CDT): Hemoglobin A1c increased to 7.8%. Continue using Dexcom for continuous monitoring and low BG alarms. -2 recent hypoglycemic events overnight, but we discussed them in detail today and patient states that she knows why each one occurred. She is taking Lantus PM daily, consistently. She is taking Humalog with meals and using sliding scale. Recommend small Humalog increase with breakfast to prevent hyperglycemia. She plans to continue making diet changes to help better manage BG and she has also met with a scientific diver. Assessment & Plan (02/23/2022 10:29 AM CDT): Hemoglobin A1c decreased to 6.8%, with minimal hypoglycemia. Continue using Dexcom for continuous monitoring and low BG alarms. She is taking Lantus PM daily, consistently. She is taking Humalog with meals and using sliding scale. She plans to continue making diet changes to help lower BG. Assessment & Plan (11/18/2021 12:55 PM RANGELAND MANAGEMENT SPECIALIST): Needs adjustments in insulins, particularly with variable schedule due to dialysis. Need to maintain a good margin of safety. Assessment & Plan (03/17/2021 2:39 PM CDT): Glucoses extremely high with meals, but correction values work reasonably well. Tend to decrease overnight, so she needs a little bit less basal insulin and more mealtime insulin. Very sensitive to low doses because of her renal failure need to minimize risk of hypoglycemia. Assessment & Plan (10/27/2020 9:01 AM RANGELAND MANAGEMENT SPECIALIST): No retinopath; pt ed BG control -annual DFE Assessment & Plan (06/03/2020 4:00 AM CDT): History of DM2 for many years. Last ophtho exam one year ago. Complications include nephropathy and neuropathy. A1C 5.7 one year ago. On home lantus 9u QHS on non dialysis days and 7u on dialysis days. - Dose reduce to lantus 5u QHS + MDSSI. - On statin at home but given ESRD on HD, will discontinue. Assessment & Plan (06/26/2019 3:36 PM CDT): Well controlled without medication currently. Last A1C 5.9 in 02/2019. - Continue to monitor blood sugar Assessment & Plan (04/24/2019 1:45 PM CDT): Well controlled BGs currently, most recent HbA1c 5.9 in 03/09. Home regimen levemir 25u BID, novolog 15U TID; Low glucose despite reduced insulin dose, switched to -Extra low dose SSI given ESRD/DANIEL and hypoglycemia -QID accuchecks Assessment & Plan (06/15/2018 7:50 AM CDT): Markedly improved overall, although A1c is difficult to interpret in the setting of her anemia. Intelligent, motivated and will benefit from ongoing education and follow-up. Glucoses currently within a good margin of safety. Needs foot care Vitamin D deficiency 10/24/2012 Overview (04/30/2025): 04/30/25 25-D 17 Assessment & Plan (05/17/2025 8:41 PM CDT): Level low, but managed by her dialysis team Assessment & Plan (02/12/2025 2:45 PM CDT): - Repeat level today Assessment & Plan (11/15/2024 9:09 PM RANGELAND MANAGEMENT SPECIALIST): Continue supplement, monitored by renal Assessment & Plan (08/13/2024 12:44 PM CDT): - Last Vitamin D 37.6 (10/2020), replete - Continue chronic supplement Assessment & Plan (05/12/2024 2:24 PM CDT): Continue supplement, monitored by renal Assessment & Plan (02/08/2024 8:39 PM CDT): Continue supplement, monitored by renal Assessment & Plan (08/16/2023 8:16 PM CDT): Continue supplement, monitored by renal Assessment & Plan (05/05/2023 3:37 PM CDT): Continue supplement, monitored by renal Assessment & Plan (11/18/2021 12:52 PM RANGELAND MANAGEMENT SPECIALIST): Continue supplement, monitored by renal Assessment & Plan (03/17/2021 2:38 PM CDT): Continue supplement, monitored by renal Assessment & Plan (03/06/2020 10:42 AM CDT): Continue supplement, monitored by renal Assessment & Plan (06/15/2018 7:52 AM CDT): On daily supplement, chronic renal insufficiency Pes planus 10/18/2012 JASON on CPAP 10/18/2012 Assessment & Plan (11/23/2019 5:30 PM RANGELAND MANAGEMENT SPECIALIST): Continue CPAP with sleep. - CPAP ordered Assessment & Plan (11/22/2019 10:09 PM RANGELAND MANAGEMENT SPECIALIST): Continue CPAP with sleep. - CPAP ordered Assessment & Plan (08/04/2019 10:20 AM CDT): JASON w/ cpap at night, setting 11cmHg. Assessment & Plan (08/01/2019 10:06 AM CDT): JASON w/ cpap at night, setting 11cmHg. Assessment & Plan (07/29/2019 11:44 AM CDT): JASON w/ cpap at night, setting 11cmHg. Assessment & Plan (07/28/2019 12:01 PM CDT): JASON w/ cpap at night, setting 11cmHg. Compliant with nightly mask/CPAP. Sleeping well. Defer to PCP for group home weight management & goal setting for weight loss, with morbid obesity (BMI 60) playing a role. Assessment & Plan (07/27/2019 11:17 AM CDT): JASON w/ cpap at night, setting 11cmHg. Compliant with nightly mask/CPAP. Sleeping well. Defer to PCP for group home weight management, with morbid obesity (BMI 60) playing a role. Assessment & Plan (07/26/2019 11:43 AM CDT): JASON w/ cpap at night, setting 11cmHg. Compliant with nightly mask. Sleeping well. Defer to PCP for roasterman weight management, with morbid obesity (BMI 60) playing a role. Assessment & Plan (07/25/2019 11:19 AM CDT): JASON w/ cpap at night, setting 11cmHg. Compliant with nightly mask. Defer to PCP for group home weight management, with morbid obesity (BMI 60) playing a role. Assessment & Plan (07/24/2019 2:12 PM CDT): JASON w/ cpap at night, setting 11cmHg. Compliant. Assessment & Plan (07/23/2019 1:55 PM CDT): JASON w/ cpap at night -setting 11 Assessment & Plan (07/22/2019 6:16 PM CDT): JASON w/ cpap at night - patient endorses compliance although she reports not wearing last night. -setting 11 Assessment & Plan (07/16/2019 9:36 AM CDT): - Home CPAP 11 cm H20 Assessment & Plan (07/11/2019 5:18 PM CDT): - Home CPAP 11 cm H20 Assessment & Plan (07/10/2019 10:47 PM CDT): - Home CPAP 11 cm H20 Assessment & Plan (04/21/2019 8:09 AM CDT): On CPAP at home --Continue CPAP at night Hernia of anterior abdominal wall 04/12/2012 Chronic renal impairment 01/17/2011 Assessment & Plan (06/15/2018 7:48 AM CDT): Need to minimize risk of hypoglycemia Alopecia 11/19/2010 Acanthosis nigricans 09/22/2010 Chronic rhinitis 09/22/2010 Diabetic peripheral neuropathy 09/20/2010 Assessment & Plan (06/03/2020 4:22 AM CDT): Extensive DM2 history with complications namely ESRD and peripheral neuropathy. On home gabapentin and duloxetine. - Continue gabapentin 100mg BID with breakfast and dinner - Continue duloxetine 60mg daily QHS Assessment & Plan (11/23/2019 5:30 PM RANGELAND MANAGEMENT SPECIALIST): Continue Cymbalta and gabapentin Assessment & Plan (11/22/2019 10:12 PM RANGELAND MANAGEMENT SPECIALIST): Continue Cymbalta and gabapentin Assessment & Plan (08/26/2019 7:43 AM RANGELAND MANAGEMENT SPECIALIST): Clinically stable at this time Assessment & Plan (07/19/2019 10:41 AM CDT): - Cont duloxetine and gabapentin Assessment & Plan (07/18/2019 5:49 PM CDT): - Cont duloxetine and gabapentin Assessment & Plan (07/17/2019 10:11 AM CDT): - Cont duloxetine and gabapentin Assessment & Plan (07/16/2019 9:36 AM CDT): - Cont duloxetine and gabapentin Assessment & Plan (07/11/2019 5:18 PM CDT): - Cont duloxetine and gabapentin Assessment & Plan (07/10/2019 10:46 PM CDT): - Cont duloxetine and gabapentin Assessment & Plan (06/26/2019 3:32 PM CDT): Continue home Gabapentin Assessment & Plan (06/15/2018 7:48 AM CDT): Currently stable, needs ongoing optimal glycemic control Mixed hyperlipidemia 09/20/2010 Assessment & Plan (05/17/2025 8:43 PM CDT): Statin intolerant, but consider alternate brand. Continue ezetimibe and optimize glycemic control Assessment & Plan (02/12/2025 2:45 PM CDT): - LDL 71 (05/2020), just above glycemic control - She is not on a statin, continue zetia 10 mg daily - Repeat lipid panel Assessment & Plan (11/15/2024 9:09 PM RANGELAND MANAGEMENT SPECIALIST): Continue statin, optimize glycemic control. Assessment & Plan (08/13/2024 12:43 PM CDT): - Last LDL 71 (05/2020), just above goal - Continue Zetia 10 mg daily - Optimize glycemic control - At next visit, obtain FLP. - Consider increasing and/or adding another medication in order to further reduce LDL to goal < 70 mg/dL Assessment & Plan (05/12/2024 2:26 PM CDT): Continue statin, optimize glycemic control. Assessment & Plan (02/08/2024 8:39 PM CDT): Continue statin, optimize glycemic control. Assessment & Plan (08/16/2023 8:16 PM CDT): Continue statin, optimize glycemic control. Assessment & Plan (05/05/2023 3:36 PM CDT): Continue statin, optimize glycemic control. Assessment & Plan (01/19/2023 10:01 AM CDT): She is taking ezetimibe 10mg, no longer on statin therapy due to muscle aches. Optimize glycemic control. -Labs are done at dialysis. Assessment & Plan (10/20/2022 10:17 AM RANGELAND MANAGEMENT SPECIALIST): She is taking ezetimibe 10mg, no longer on statin therapy due to muscle aches; optimize glycemic control. -Labs are done at dialysis. Assessment & Plan (07/07/2022 11:57 AM CDT): She is taking ezetimibe 10mg, no longer on statin therapy due to muscle aches; optimize glycemic control. -Labs are done at dialysis. Assessment & Plan (02/23/2022 10:27 AM CDT): Continue statin therapy and continue optimizing glycemic control. Assessment & Plan (03/17/2021 2:37 PM CDT): Still on higher dose of pravastatin per her PCP, and we will continue Assessment & Plan (06/03/2020 4:19 AM CDT): History of mixed hyperlipidemia, most recent LDL in our system is 40 in 03/2019. On home pravastatin. - Given ESRD on HD and LDL on 40, will d/c home pravastatin. Assessment & Plan (03/06/2020 10:42 AM CDT): Now on higher dose of pravastatin per her PCP, and we will continue Assessment & Plan (04/19/2019 9:36 AM CDT): Lipid panel (04/18) WNL -- Continue home aspirin 81 mg and pravastatin 40 mg. Assessment & Plan (06/15/2018 7:48 AM CDT): Continue diet, lifestyle, improved glycemic control and statin Benign hypertension with ESRD (end-stage renal d isease) 09/20/2010 Assessment & Plan (02/12/2025 2:44 PM CDT): - Improved with manual recheck - Continue follow up with Cardiology and Nephrology Assessment & Plan (08/13/2024 12:41 PM CDT): - On dialysis - Blood pressure improved with retake Assessment & Plan (06/03/2020 4:27 AM CDT): History of HTN. One episode of BP 150/70 in the ED, repeat measurements normotensive. Recently taken off of losartan by PCP. - CTM BP. - No antihypertensives as the pt is normotensive and with probable active GI bleed. Assessment & Plan (11/23/2019 5:29 PM RANGELAND MANAGEMENT SPECIALIST): Continue home losartan - routine vitals Assessment & Plan (11/23/2019 5:26 PM RANGELAND MANAGEMENT SPECIALIST): Continue home losartan - routine vitals Assessment & Plan (07/28/2019 11:58 AM CDT): Patient hypotensive in dialysis on day of admit, decreased coreg 6.25 BID and held losartan, per renal recs. Monitored serial pressures, and since adjustment, have remained stable. Appears euvolemic on exam. Tolerating working with PT/OT. Assessment & Plan (07/27/2019 11:15 AM CDT): Patient hypotensive in dialysis on day of admit, decreased coreg 6.25 BID and held losartan, per renal recs. Monitor serial pressures, and since adjustment, have remained stable. Appears euvolemic. Tolerating working with PT Assessment & Plan (07/26/2019 11:38 AM CDT): Patient hypotensive in dialysis on day of admit, decreased coreg 6.25 BID and held losartan, per renal recs. Monitor serial pressures, and since adjustment, have remained stable. Appears euvolemic. Assessment & Plan (07/25/2019 11:15 AM CDT): Patient hypotensive in dialysis on day of admit, decreased coreg 6.25 BID and held losartan, per renal recs. Monitor serial pressures, and since adjustment, have remained stable. Assessment & Plan (07/24/2019 2:02 PM CDT): Patient hypotensive in dialysis, decreased coreg 6.25 BID and held losartan, per renal recs. Monitor serial pressures, remained stable. Assessment & Plan (07/23/2019 1:54 PM CDT): Patient hypotensive in dialysis - decrease coreg 6.25 BID and will hold losartan for now - per renal recs Assessment & Plan (07/22/2019 6:20 PM CDT): Blood pressure stable, normotensive. - continue coreg 12.5 BID and losartan 50 mg daily Assessment & Plan (07/16/2019 9:36 AM CDT): - Continue carvedilol and losartan. - Nifedipine discontinued last admission due to low BP during HD Assessment & Plan (07/11/2019 5:18 PM CDT): - Continue carvedilol and losartan. - Nifedipine discontinued last admission due to low BP during HD Assessment & Plan (07/10/2019 10:47 PM CDT): - Continue carvedilol and losartan. Nifedipine discontinued last admitssion due to low BP during HD Assessment & Plan (07/01/2019 2:37 PM CDT): On Coreg 12.5 BID, Losartan 50mg, and nifedipine 30mg at home. BP 130s / 80s on presentation. - Will continue losartan and coreg; - Hold nifedipine per nephrology, as patient has been more symptomatic following dialysis - Holding Bumex due to low phos Assessment & Plan (04/24/2019 1:43 PM CDT): BPs in the 140s-170s recently. --Diuresis --Continue home antihypertensives of Coreg 25mg BID, Nifedipine 30mg daily --Continue losartan 50 (restarted after initiation of HD) --Consider starting amlodipine 5 mg with uptitration if persistently HTnsive Assessment & Plan (06/15/2018 7:48 AM CDT): Systolic blood pressure high, but managed by her other doctors. Anemia, iron deficiency 09/20/2010 Assessment & Plan (06/15/2018 7:49 AM CDT): On supplement, managed by her other doctors. However, this can affect her A1c interpretation Leiomyoma of uterus 09/20/2010 Cobalamin deficiency 09/20/2010 Current Treatment and Therapy Plans No current plan information found. Past Treatment and Therapy Plans Lifetime Dose Tracking * Chemical Lifetime Dose Automatic Entry Manual Entr y Fluoro Time 3.615 minutes 3.615 minutes 0 minutes Air kerma at the reference point (Ka,r) 138.74 mGy 1 10.74 mGy 28 mGy DLP 4,909 mGycm 4,909 mGycm 0 mGycm Resolved Problems Problem Noted Date Diagnosed Date Resolved Date Overdose of insulin, acciden frank or unintentional, initial encounter 11/22/2019 020 Assessment & Plan (11/23/2019 5:30 PM RANGELAND MANAGEMENT SPECIALIST): Off insulin since Aug 2019 due to low blood sugars after weight loss. High BGs today at home (>500 initially) likely due to infection, - At 10:30am on 11/22 she took SQ Levemir 50 units and SQ Novolog 15 units. (Her old doses were Levemir 25 units BID and Novolog 15units with meals before stopping insulin use) - patient glucose 70's at lowest, but subsequently elevated. - SS initiated. - will need SS at discharge, with plan to follow up with PCP. Assessment & Plan (11/23/2019 5:25 PM RANGELAND MANAGEMENT SPECIALIST): Off insulin since Aug 2019 due to low blood sugars after weight loss. High BGs today at home (>500 initially) likely due to infection, - At 10:30am on 11/22 she took SQ Levemir 50 units and SQ Novolog 15 units. (Her old doses were Levemir 25 units BID and Novolog 15units with meals before stopping insulin use) - patient glucose 70's at lowest, but subsequently elevated. - SS initiated. - will need SS at discharge, with plan to follow up with PCP. Hypophosphatemia 06/29/2019 07/01/2019 Assessment & Plan (06/30/2019 10:41 AM CDT): In setting of ESRD, renal diet, attempted diuresis with bumex. Now WNL s/p phos supplementation 06/29. Acute renal failure superimp osed on stage 4 chronic kidney disease 04/18/2019 08/23/2019 Assessment & Plan (04/24/2019 1:43 PM CDT): Patient presenting with elevated Cr to 8.57, up from recent baseline of ~4. In the setting of recently decreased diuretics (Bumex changed to PRN) and increased swelling and SOB. Edematous on exam with diffuse rales in lungs. Greatly improved overall, less volume overloaded, breathing well on RA. - Renal consulted, appreciate recs; placed R IJ trialysis 04/19; working on arranging outpatient HD - HD started 04/19, s/p tunneled line 7/2, plan for outpatient dialysis at [facility] - 120mg IV Lasix BID->bumex - Continue Vitamin D 5,000 IU daily, Zemplar 2mcg every other day - Renally dose medications - Strict I/Os, mccartney in place - Vein mapping completed; vascular surgery c/s'd 04/23, will follow up in next 1-2 weeks to schedule vascular access surgery; IPAP c/s'ed 04/23 however will follow up closer to procedure date given recent HD initiation Acute respiratory failure with hypoxia 04/18/2019 04/24/2019 Assessment & Plan (04/21/2019 8:08 AM CDT): Likely 2/2 VOL 2/2 renal disease. TTE w/ pHTN but no significant cardiac dysfunction. Now breathing well on RA. -Diuresis, HD as elsewhere Hyperkalemia 04/18/2019 04/24/2019 Assessment & Plan (04/23/2019 12:06 PM CDT): 2/2 renal dysfunction, ARB Required temporizing measures 04/19 Last WBK 4.4 after HD K 4.6 today -HD, diuresis as elsewhere -Low K diet CRD (chronic renal disease), stage IV 01/09/2019 08/23/2019
--- OUTSIDE RECORDS SUMMARY | 2025-05-19 11:23 | XMS_ITS | Referral Summary ---
Author Organization [facility] Address [address] [place] [address] Care Team Providers Care [employer] Cloud Consulting Architect Name Role Phone Chelle Espinoza MD Unavailable [phone] Marguerite Fuchs MD Primary Care Provider Aft, Cesilia Allen MD PhD Unavailable Peter Joe MD Unavailable Catherine Cain Unavailable Encounters Date Type Department Care Team Description 05/16/2025 Orders Only [facility] Endocrinology Metabolism and Lipid [address] [facility] 13th [place] [address] [place] [id number] Catherine Cain PA Type 2 diabetes mellitus with complication, with long-term current use of insulin (HCC) (Primary Dx) 05/16/2025 Telephone [facility] Endocrinology Metabolism and Lipid [address] [facility] 5th [place] [address] [place] [address] Maria Dolores Tabares RN 05/16/2025 8:00 AM CDT Clinical Support [facility] Endocrinology Metabolism and Lipid [address] [facility] 13th [place] [address] [place] [address] Type 2 diabetes mellitus with complication, with long-term current use of insulin (HCC) (Primary Dx) 05/16/2025 9:00 AM CDT Clinical Support [facility] Endocrinology Metabolism and Lipid [address] [facility] [address]th [place] [address] [place] [address] Shelia Robbins RN Type 2 diabetes mellitus with complication, with long-term current use of insulin (HCC) (Primary Dx); Corns and callosities 05/15/2025 Telephone [facility] Endocrinology Metabolism and Lipid [address] [facility] 5th [place] [address] [place] [address] Maria Dolores Tabares RN Prior Auth; mounjaro 05/15/2025 Telephone [facility] Endocrinology Metabolism and Lipid [address] [facility] [address]th [place] [address] [place] [address] Maria Dolores Tabares RN pain managment referral an CDE appt 05/15/2025 12:00 PM CDT Telemedicine [facility] Endocrinology Metabolism and Lipid [address] [facility] [address] [place] [address] [place] [address] Chelle Espinoza MD Type 2 diabetes mellitus with complication, with long-term current use of insulin (HCC) (Primary Dx); Mixed hyperlipidemia; ESRD (end stage renal disease) on dialysis (HCC); Vitamin D deficiency 05/02/2025 Telephone [facility] Surgery [address] [facility] Floor [address] [place] [address] Pj Toure MD 04/30/2025 Orders Only [facility] Endocrinology Metabolism and Lipid [address] [facility] 5th [place] [address] [place] [address] Marissa Castro MD 04/30/2025 Telephone [facility] Endocrinology Metabolism and Lipid [address] [facility] [address]th [place] [address] [place] [address] Maria Dolores Tabares RN lab results Davita 04/22/2025 Telephone [facility] Surgery [address] [facility] 8th [place] [address] [place] [address] Pj Toure MD 04/22/2025 Telephone [facility] Surgery [address] [facility] Floor 1 [place] [phone] Pj Toure MD 02/28/2025 Orders Only [facility] Endocrinology Metabolism and Lipid [address] [facility] 5th [place] [address] [place] [phone] Marissa Castro MD 02/28/2025 Telephone [facility] Endocrinology Metabolism and Lipid [address] [facility] 5th [place] [address] [place] [address] Maria Dolores Tabares RN Lab Results 02/17/2025 10:00 AM CDT Office Visit [facility] Ophthalmology [address] [facility] 6th [address], [address] [place] [address] Marimar Newberry, AMI Type 2 diabetes mellitus with complication, with long-term current use of insulin (HCC) (Primary Dx); Combined forms of age-related cataract of both eyes; Exotropia, alternating 02/17/2025 9:50 AM CDT Imaging Exam [facility] Ophthalmology [address] [facility] [address] [place] [address] Type 2 diabetes mellitus with complication, with long-term current use of insulin (HCC) from Last 3 Months Allergies Active Allergy Reactions Criticality Noted Date Comments Jamal Inhibitors Angioedema High Reaction: Benazepril Eye irritation Low 08/08/2022 Benazepril Hcl Angioedema High 10/20/2011 Gabapentin Other (See comments) Low 08/08/2022 Glipizide Nausea & Vomiting Low Atorvastatin Muscle pain Medium 09/20/2010 Metformin Stomach upset Low 09/20/2010 Pravastatin Muscle pain Medium 04/04/2022 Sevelamer Carbonate Other (See comments) Low 2020 Pt states crystals were found during colonoscopy d/t medication Rofecoxib Muscle pain Medium 05/21/[address] (PROTONIX) 40 mg EC tabletIndications:St ress Ulcer Prophylaxis Take 1 tablet (40 mg total) by mouth every morning 06/12/20 18 Active allopurinol (ZYLOPRIM) 100 mg tabletIndications:pr evention of acute gout attack Take 1 tablet (100 mg total) by mouth daily 30 tablet 07/19/20 19 Active aspirin 81 mg enteric coated tabletIndications:pr evention of thrombosis Take 1 tablet (81 mg total) by mouth daily before breakfast Active vitamin B complex with C-folic acid (NEPHROCAP) 1 mg capsuleIndications:V itamin Deficiency Prevention Take 1 capsule by mouth daily before breakfast Active lidocaine-prilocaine cream Apply TO dialysis access 1 hour prior TO treatment 10/30/19 21 Active artificial tears,hypromellose, 0.3 % drops Administer 1 drop into affected eye(s) as needed (dry eye) Active ferric gluconate (FERRLECIT) 62.5 mg/5 mL injectionIndications :Anemia in Hemodialysis-Depende nt Chronic Kidney Disease Infuse 5 mL (62.5 mg of elemental iron total) into a venous catheter 3 (three) times a week Active acetaminophen 325 mg capsule Take 2 capsules (650 mg total) by mouth every 6 (six) hours as needed (pain) Active betamethasone dipropionate (DIPROLENE) 0.05 % lotion Apply topically as needed Active diphenhydrAMINE (BENADRYL) 25 mg capsule Take 1 tablet/capsul e (25 mg total) by mouth every 6 (six) hours as needed for itching Active ezetimibe (ZETIA) 10 mg tabletIndications:hy perlipidemia Take 1 tablet (10 mg total) by mouth daily before breakfast 04/01/20 22 Active pen needle, diabetic 31 gauge x 3/16 needleIndications:Ty pe 2 diabetes mellitus with complication, with long-term current use of insulin (HCC) Use with insulin injections 4 times daily 400 each 3 07/07/20 22 Active paricalcitoL (ZEMPLAR) 2 mcg capsuleIndications:H yperparathyroidism Secondary to Chronic Renal Failure Take 1 capsule (2 mcg total) by mouth 3 (three) times a week Take with dialysis Mon, Wed, Mon07/04/20 22 Active ferric citrate (Auryxia) 210 mg iron tabletIndications:Re nal Osteodystrophy with Hyperphosphatemia Take 210 mg by mouth daily before breakfast 07/04/20 22 Active albuterol HFA (PROVENTIL HFA,VENTOLIN HFA,PROAIR HFA) 90 mcg/actuation inhaler Inhale 1 puff every 4 (four) hours as needed for wheezing or shortness of breath 11/06/19 19 Active midodrine (PROAMATINE) 5 mg tabletIndications:Sy mptomatic Orthostatic Hypotension Take 1 tablet (5 mg total) by mouth 3 (three) times a week 01/26/20 24 Active cetirizine (ZyrTEC) 10 mg tabletIndications:Al lergic Rhinitis Take 1 tablet (10 mg total) by mouth daily before breakfast Active calcitRIOL (ROCALTROL) 0.5 mcg capsule Take by mouth Active tirzepatide (Mounjaro) 2.5 mg/0.5 mL pen injector injectionIndications :Type 2 diabetes mellitus with complication, with long-term current use of insulin ([facility]),Class 3 severe obesity due to excess calories with serious comorbidity and body mass index (BMI) of 60.0 to 69.9 in adult Inject 0.5 mL (2.5 mg total) under the skin every 7 days 6 mL 2 02/13/20 25 Active insulin glargine (TOUJEO) 300 unit/mL (1.5 mL) pen for injectionIndications :Type 2 diabetes mellitus with complication, with long-term current use of insulin ([facility]) Inject 44 units under the skin daily. 42 mL 2 02/13/20 25 Active insulin lispro-aabc (LYUMJEV) 100 unit/mL pen for injectionIndications :Type 2 diabetes mellitus with complication, with long-term current use of insulin ([facility]) Inject 24-29 units with breakfast, 38-32 units with lunch and dinner and 5 units with snacks. Max TDD 110 units daily 99 mL 2 02/13/20 25 Active glucagon (BAQSIMI) 3 mg/actuation spray,non-aerosolInd ications:Type 2 diabetes mellitus with complication, with long-term current use of insulin ([facility]) Administer 1 spray into one nostril as needed (severe hypoglycemia) 2 each 3 02/13/20 25 Active pregabalin (LYRICA) 50 mg capsuleIndications:n erve pain Take 1 capsule (50 mg total) by mouth nightly TAKE 1 CAPSULE BY MOUTH ONCE DAILY TAKE ADDITIONAL DOSE AFTER DIALYSIS ON MONDAY, AND MONDAY 120 capsule 2 05/16/20 25 025 Active pregabalin (LYRICA) 50 mg capsuleIndications:n erve pain Take 1 capsule (50 mg total) by mouth nightly TAKE 1 CAPSULE BY MOUTH ONCE DAILY TAKE ADDITIONAL DOSE AFTER DIALYSIS ON MONDAY, AND MONDAY 40 capsule 2 02/11/20 25 025 Discontin ued(Reord er) Active Problems Problem Noted Date Diagnosed Date Spondylosis of lumbar region without myelopathy or radiculopathy 10/07/2022 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 Assessment & Plan (10/26/2023 9:15 AM VIOLIN RESTORER): Defer cataract surgery until signs and symptoms indicate. Pt was educated on the diagnosis. Recommend daily UV eye protection. Assessment & Plan (10/27/2020 9:01 AM VIOLIN RESTORER): Not yet Visually significant; defer cataract extraction [...] rescue Assessment & Plan (11/23/2019 5:30 PM VIOLIN RESTORER): Due to insulin overdose (accidental) - continue to monitor as above and treat as needed per hypoglycemia protocol Assessment & Plan (11/22/2019 10:08 PM VIOLIN RESTORER): Due to insulin overdose (accidental) - continue to monitor as above and treat as needed per hypoglycemia protocol Cellulitis of leg, right 11/22/2019 Assessment & Plan (11/23/2019 5:30 PM VIOLIN RESTORER): Was seen by dermatology on 11/08/2019 at which time culture was performed. Patient has culture results which are positive for proteus mirabilis sensitive to ampicillin. She was prescribed ampicillin 500mg BID for 30 days per patient. - Continue ampicillin 500mg BID while inpatient Assessment & Plan (11/22/2019 10:49 PM VIOLIN RESTORER): Was seen by dermatology on 11/08/2019 at [...] to SNF placement, SW following. S/p HD 07/23 and tolerated. No evidence of dysrhythmia, continue [...] to SNF placement, SW following. S/p HD 10 and tolerated. No evidence of dysrhythmia, continue [...] to SNF placement, SW following. S/p HD 10 and tolerated. No evidence of dysrhythmia, continue [...] to SNF placement, SW following. S/p HD 10 and tolerated. No evidence of dysrhythmia, continue [...] and renal adjusted dry weight. S/p HD 07/23 and tolerated. No evidence of dysrhythmia, continue [...] be further evaluated by US Pt has carcass trimmer and has appointment coming up This finding was discussed and she will follow up with them Diabetes mellitus 07/10/2019 Assessment & Plan (08/13/2024 12:40 PM CDT): - Diabetes is complicated by neuropathy, end-stage renal disease on hemodialysis, hypertension, hyperlipidemia and obesity. 90-day Dexcom GMI 7.6%, above goal. Lab Results Component Value Date HGBA1C 6.8 02/22/2022 Per [place] [employer], goal A1c is less 7% [...] etc. Assessment & Plan (08/26/2019 7:42 AM VIOLIN RESTORER): No longer requires insulin therapy now that [...] recs: - ZENON weakly positive, AMA negative, JAMAL mildly elevated - MRCP with splenic and [...] 10/2019. Had a catheter for HD in [facility]. Initially managed with eliquis but transitioned to [...] IJ associated w/ HD catheter on dopplers 9/ and line removal. Has been on therapeutic anticoagulation with apixaban. Anticoagulation on hold with ABLA. Repeat RUE doppler still with clot present. GIB work up prior to restarting anticoagulation. Assessment & Plan (07/29/2019 11:40 AM CDT): Hx VTE right IJ associated w/ HD catheter on dopplers 06/27 and line removal. Has been on therapeutic [...] 06/26/2019 Assessment & Plan (11/23/2019 5:30 PM VIOLIN RESTORER): Continue allopurinol Assessment & Plan (11/22/2019 10:03 PM VIOLIN RESTORER): Continue allopurinol Assessment & Plan (07/16/2019 9:40 [...] safety. Assessment & Plan (11/15/2024 9:09 PM VIOLIN RESTORER): Managed by renal, need to minimize risk [...] hypoglycemia. Assessment & Plan (10/20/2022 10:20 AM VIOLIN RESTORER): Need to minimize risk of hypoglycemia. Assessment [...] hypoglycemia Assessment & Plan (11/23/2019 5:30 PM VIOLIN RESTORER): HD MWF Access: Last HD: 11/20 (mon). She had rescheduled her outpatient HD for today (Thursday 11/23 at 10:30am) - consult renal given elevating blood sugars, will need regimen going forward with current infection. Assessment & Plan (11/23/2019 5:20 PM VIOLIN RESTORER): HD MWF Access: Last HD: 11/20 (mon). She had rescheduled her outpatient HD for today (Thursday 11/23 at 10:30am) - consult renal given elevating blood sugars, will need regimen going forward with current infection. Assessment & Plan (08/26/2019 7:43 AM VIOLIN RESTORER): No longer requires insulin therapy. Assessment & [...] Recent PTFE graft placement, per vascular appt 9/16 is now ready for use - Started [...] bilateral knee pain. Patient discharge with home PT/OT/snf which has not been initiated. Continue lidocaine [...] bilateral knee pain. Patient discharge with home PT/OT/snf which has not been initiated. Continue lidocaine [...] bilateral knee pain. Patient discharge with home PT/OT/snf which has not been initiated. Continue lidocaine patch bilateral knees, oral prn tylenol and diclofenac dose increased to 4gm with improvement. Encouraged patient to use medications to improve mobility with therapy and agreeable. PT/OT for debilitation. Await SNF, insurance approval still pending. Assessment & Plan (07/25/2019 11:17 AM CDT): Recent admission 07/10-07/19 for OA bilateral knee pain. Patient discharge with home PT/OT/snf which has not been initiated. Continue lidocaine patch bilateral knees, oral prn tylenol and diclofenac dose increased to 4gm with improvement. Encouraged patient to use medications to improve mobility with therapy and agreeable. PT/OT for debilitation. Await SNF Assessment & Plan (07/24/2019 2:04 PM CDT): Recent admission 07/10-07/19 for bilateral knee pain. Patient discharge with home PT/OT/snf which has not been initiated. -continue lidocaine patch bilateral knees -continue prn tylenol and diclofenac PT/OT for debilitation. Assessment & Plan (07/23/2019 1:55 PM CDT): Recent admission 07/10-07/19 for bilateral knee pain. Patient discharge with home PT/OT/snf which has not been initiated. -continue lidocaine patch bilateral knees -continue prn tylenol and diclofenac Assessment & Plan (07/22/2019 6:15 PM CDT): Recent admission 07/10-07/19 for bilateral knee pain. Patient discharge with home PT/OT/snf which has not been initiated. -continue lidocaine [...] 01/09/2019 Assessment & Plan (11/23/2019 5:30 PM VIOLIN RESTORER): Continue phos binder - phos 4.9, prior to dialysis. - patient reports previously low and discontinued sevelamer Assessment & Plan (11/23/2019 5:23 PM VIOLIN RESTORER): Continue phos binder - phos 4.9, prior to dialysis. - patient reports previously low and discontinued sevelamer Anemia of chronic renal failure 06/01/2018 Assessment & Plan (11/23/2019 5:29 PM VIOLIN RESTORER): Usually received darbopoietin on Fridays with HD. - CBC stable. Assessment & Plan (11/23/2019 5:18 PM VIOLIN RESTORER): Usually received darbopoietin on Fridays with HD. [...] current use of insulin 06/20/2013 Overview (04/30/2025): 7/9/25 A1c 7.1% Assessment & Plan (05/17/2025 8:42 [...] Component Value Date HGBA1C 6.8 02/22/2022 Per [place] [employer], goal A1c is less 7% [...] that I am available via phone or WiFi Railhart if they have any concerns for hypo/hyperglycemia, medication refills, etc. Assessment & Plan (11/15/2024 9:10 PM VIOLIN RESTORER): Overall glycemic control is within a reasonable range of control and safety. A1c 6.6% Assessment & Plan (05/12/2024 2:26 PM CDT): Glucoses a little high, but need to minimize risk of hypoglycemia. Assessment & Plan (02/08/2024 8:39 PM CDT): Glucoses very high after meals. Needs adjustments in basal and mealtime insulins. Assessment & Plan (10/26/2023 9:15 AM VIOLIN RESTORER): Pt ed. Stressed BG control (HbA1C<7) to [...] diabetes. Assessment & Plan (10/22/2022 12:48 PM VIOLIN RESTORER): Awaiting Hemoglobin A1c result; Dexcom report average [...] and she has also met with a dicer machine operator. Assessment & Plan (02/23/2022 10:29 AM CDT): Hemoglobin A1c decreased to 6.8%, with minimal hypoglycemia. Continue using Dexcom for continuous monitoring and low BG alarms. She is taking Lantus PM daily, consistently. She is taking Humalog with meals and using sliding scale. She plans to continue making diet changes to help lower BG. Assessment & Plan (11/18/2021 12:55 PM VIOLIN RESTORER): Needs adjustments in insulins, particularly with variable [...] hypoglycemia. Assessment & Plan (10/27/2020 9:01 AM VIOLIN RESTORER): No retinopath; pt ed BG control -annual [...] today Assessment & Plan (11/15/2024 9:09 PM VIOLIN RESTORER): Continue supplement, monitored by renal Assessment & [...] renal Assessment & Plan (11/18/2021 12:52 PM VIOLIN RESTORER): Continue supplement, monitored by renal Assessment & Plan (03/17/2021 2:38 PM CDT): Continue supplement, monitored by renal Assessment & Plan (03/06/2020 10:42 AM CDT): Continue supplement, monitored by renal Assessment & Plan (06/15/2018 7:52 AM CDT): On daily supplement, chronic renal insufficiency Pes planus 10/18/2012 JASON on CPAP 10/18/2012 Assessment & Plan (11/23/2019 5:30 PM VIOLIN RESTORER): Continue CPAP with sleep. - CPAP ordered Assessment & Plan (11/22/2019 10:09 PM VIOLIN RESTORER): Continue CPAP with sleep. - CPAP ordered [...] mask/CPAP. Sleeping well. Defer to PCP for intermediate designer weight management & goal setting for weight loss, with morbid obesity (BMI 60) playing a role. Assessment & Plan (07/27/2019 11:17 AM CDT): JASON w/ cpap at night, setting 11cmHg. Compliant with nightly mask/CPAP. Sleeping well. Defer to PCP for intermediate designer weight management, with morbid obesity (BMI 60) playing a role. Assessment & Plan (07/26/2019 11:43 AM CDT): JASON w/ cpap at night, setting 11cmHg. Compliant with nightly mask. Sleeping well. Defer to PCP for intermediate designer weight management, with morbid obesity (BMI 60) playing a role. Assessment & Plan (07/25/2019 11:19 AM CDT): JASON w/ cpap at night, setting 11cmHg. Compliant with nightly mask. Defer to PCP for intermediate designer weight management, with morbid obesity (BMI 60) [...] QHS Assessment & Plan (11/23/2019 5:30 PM VIOLIN RESTORER): Continue Cymbalta and gabapentin Assessment & Plan (11/22/2019 10:12 PM VIOLIN RESTORER): Continue Cymbalta and gabapentin Assessment & Plan (08/26/2019 7:43 AM VIOLIN RESTORER): Clinically stable at this time Assessment & [...] panel Assessment & Plan (11/15/2024 9:09 PM VIOLIN RESTORER): Continue statin, optimize glycemic control. Assessment & [...] dialysis. Assessment & Plan (10/20/2022 10:17 AM VIOLIN RESTORER): She is taking ezetimibe 10mg, no longer [...] bleed. Assessment & Plan (11/23/2019 5:29 PM VIOLIN RESTORER): Continue home losartan - routine vitals Assessment & Plan (11/23/2019 5:26 PM VIOLIN RESTORER): Continue home losartan - routine vitals Assessment [...] Leiomyoma of uterus 09/20/2010 Cobalamin deficiency 09/20/2010 Resolved Problems Problem Noted Date Diagnosed Date Resolved Date Overdose of insulin, acciden frank or unintentional, initial encounter 11/22/2019 020 Assessment & Plan (11/23/2019 5:30 PM VIOLIN RESTORER): Off insulin since Aug 2019 due to [...] PCP. Assessment & Plan (11/23/2019 5:25 PM VIOLIN RESTORER): Off insulin since Aug 2019 due to [...] - HD started 04/19, s/p tunneled line 04/23, plan for outpatient dialysis at [facility] - 120mg IV Lasix BID->bumex - Continue [...] (chronic renal disease), stage IV 01/09/2019 08/23/2019 Immunizations Immunization Administration Dates Next Due Influenza, Quadrivalent, Spl it, Preservative Free, Intramuscular 08/08/2019 Influenza, Trivalent, IM (MDV) 11/14/2015,2012 Influenza, Trivalent, Preser vative Free, Intramuscular 07/23/2012 Influenza, Unspecified 07/31/2023,07/31/2020 Darrius (J&J) SARS-CoV-2 Vaccination 08/01/2023 MMR 09/14/2015,08/14/2015 Pfizer SARS-CoV-2 Monovalent Vaccination (12+ Yrs) PURPLE 10/09/2021,03/03/2021,02/10/2021 Pneumococcal Polysaccharide PPV23 10/18/2020,10/2011,11/19/2010 Tdap 08/14/2015 Social History Tobacco Use Types Packs/Day Years Used Date Smoking Tobacco: Former Cigarettes 0.3 10 1 978 - 1987 Smokeless Tobacco: Never Tobacco Cessation:Counseling Given: No Alcohol Use Standard Drinks/Week Comments Not Currently [...] on file Legal Sex Female 3:06 AM VIOLIN RESTORER Gender Identity Not on file Sexual Orientation Not on file Last Filed Vital Signs Vital Sign Reading Time Taken Comments Blood Pressure 115/62 02/12/2025 11:34 AM CDT automatic retake Pulse 75 02/12/2025 10:14 AM CDT Temperature 36.6 C (97.8 F) 02/12/2025 10:14 AM CDT Respiratory Rate 19 08/30/2024 3:00 PM VIOLIN RESTORER Oxygen Saturation 92% 08/30/2024 3:0 0 PM VIOLIN RESTORER Inhaled Oxygen Concentration - - Weight 146.3 kg (322 lb 9.6 oz) 02/12/2025 10:14 AM CDT Height 152.4 cm (5') 02/12/2025 10:14 AM CDT Body Mass Index 63 02/12/2025 10:14 AM CDT Plan of Treatment Not on file Goals Goal Patient Goal Type Associated Problems Recent Progress Patient-Stated? Author CCM Chronic Pain Care Plan Chronic Care Management Improving( 8:56 AM VIOLIN RESTORER) Ana Paula Hoff, RN Note: Problem: Chronic Pain Goals: 1. Minimize further functional decline 2. Maximize quality of life 3. Control pain Strategies: - Activity/exercise program recommendation - Conservative stepwise pain medicine strategy with multi-disciplinary approach - Recommend healthy lifestyle strategies and compensatory methods as needed Medical Devices Implanted Type Area Bait Maker Device Identifier Shelf Expiration Date Model / Serial / Lot [employer] [id number] 4-7mm 45cm 10cm Removable Ring Line Standard Cap Sewer Graft - [id number] - [id number] Implanted:Qty: 1 on 05/28/2019 by Pj Toure MD at [facility] Other - see comments Left: Arm [employer] [id number] 03/31/2024 [id number] / [id number] / Description:Left AV Graft [employer] Viabahn 7mm 5cm 120cm Delivery System Superficial Femoral Artery [id number] - [id number] - [id number] Implanted:Qty: 1 on 08/30/2024 by Pj Toure MD at [facility] Stent Left: Arm [employer] [id number] 03/26/2027 [id number] / [id number] / Procedures Procedure Name Priority Date/Time Associated Diagnosis Comments A1C (MANUAL) Routine 04/01/2025 8:52 AM CDT CBC WITHOUT DIFFERENTIAL Routine 04/01/2025 8:52 AM CDT IRON PROFILE W/ IBC Routine 04/01/2025 8 :52 AM CDT CALCIUM Routine 04/01/2025 8:52 AM CDT PHOSPHORUS Routine 04/01/2025 8:52 AM CDT PTH Routine 04/01/2025 8:52 AM CDT VITAMIN D, 25-HYDROXY, TOTAL Routine 04/01/2025 8:52 AM CDT GLUCOSE Routine 04/01/2025 8:52 AM CDT ALBUMIN Routine 04/01/2025 8:52 AM CDT PTH Routine 02/20/2025 4:07 PM CDT ALBUMIN Routine 02/20/2025 4:07 PM CDT POTASSIUM, SERUM Routine 02/20/2025 4:07 PM CDT CALCIUM Routine 02/20/2025 4:07 PM CDT PHOSPHORUS Routine 02/20/2025 4:07 PM CDT FUNDUS PHOTOS/FAF - OU - BOTH EYES Routine 02/17/2025 8:33 AM CDT Type 2 diabetes mellitus with complication, with long-term current use of insulin (HCC) SCREENING MAMMOGRAM BILATERAL W KODAK Schedule Routine, Read Routine (OP Routine) 12/14/2023 11:02 AM VIOLIN RESTORER Screening mammogram, encounter for POCT HEMOGLOBIN A1C Routine 02/22/2022 1 0:26 AM CDT Type 2 diabetes mellitus with complication, with long-term current use of insulin (HCC) EGFR STAT 08/30/2021 9:53 PM VIOLIN RESTORER HEPATITIS PANEL, ACUTE STAT 11/14/2020 10:19 AM VIOLIN RESTORER COLONOSCOPY 06/04/2020 4:03 PM CDT LIPID PANEL STAT 06/03/2020 2:56 AM CDT from Last 3 Months or Most Recently Relevant to Health Maintenance Results * Glucose (04/01/2025 8:52 AM CDT) us Historical Provider LAB BLOOD ORDERABLES Karlee mckeon Result EXTERNAL LAB * CALCIUM (04/01/2025 8:52 AM CDT) Result [facility] Provider MD LAB BLOOD ORDERABLES Karlee l Result Performing Organization Address City/[facility] Co de Phone Number EXTERNAL LAB * Vitamin D, 25-Hydroxy, Total (04/01/2025 8:52 AM CDT) Result [facility] Provider MD LAB BLOOD ORDERABLES Karlee l Result Performing Organization Address City/[facility] de Phone Number EXTERNAL LAB * A1C (manual) (04/01/2025 8:52 AM CDT) Result [facility] Provider MD LAB BLOOD ORDERABLES Karlee l Result Performing Organization Address [facility] de Phone Number EXTERNAL LAB * Iron profile w/ IBC (04/01/2025 8:52 AM CDT) Blood Result [facility] Provider MD LAB BLOOD ORDERABLES Karlee l Result Performing Organization Address [facility] de Phone Number EXTERNAL LAB * CBC without differential (04/01/2025 8:52 AM CDT) Blood Result [facility] Provider MD LAB BLOOD ORDERABLES Karlee l Result Performing Organization Address City/[facility] de Phone Number EXTERNAL LAB * Phosphorus (04/01/2025 8:52 AM CDT) Blood Result [facility] Provider MD LAB BLOOD ORDERABLES Karlee l Result Performing Organization Address City/[facility] Co de Phone Number EXTERNAL LAB * PTH (04/01/2025 8:52 AM CDT) Blood Result [facility] Provider MD LAB BLOOD ORDERABLES Karlee l Result Performing Organization Address City/[facility] de Phone Number EXTERNAL LAB * Albumin (04/01/2025 8:52 AM CDT) Blood Result [facility] Provider MD LAB BLOOD ORDERABLES Karlee l Result Performing Organization Address City/[facility] de Phone Number EXTERNAL LAB * CALCIUM (02/20/2025 4:07 PM CDT) Result [facility] Provider MD LAB BLOOD ORDERABLES Karlee l Result Performing Organization Address City/[facility] de Phone Number EXTERNAL LAB * Potassium, Serum (02/20/2025 4:07 PM CDT) Result [facility] Provider MD LAB BLOOD ORDERABLES Karlee l Result Performing Organization Address City/[facility] de Phone Number EXTERNAL LAB * Phosphorus (02/20/2025 4:07 PM CDT) Blood Result [facility] Provider MD LAB BLOOD ORDERABLES Karlee l Result Performing Organization Address City/[facility] Co de Phone Number EXTERNAL LAB * PTH (02/20/2025 4:07 PM CDT) Blood Result [facility] Provider MD LAB BLOOD ORDERABLES Karlee l Result Performing Organization Address City/[facility] de Phone Number EXTERNAL LAB * Albumin (02/20/2025 4:07 PM CDT) Blood Result [facility] Provider MD LAB BLOOD ORDERABLES Karlee l Result Performing Organization Address City/[facility] Co de Phone Number EXTERNAL LAB * Fundus Photos/FAF - OU - Both Eyes (02/17/2025 8:33 AM CDT) Anatomical Region Laterality Modality Head Fundus Photograp hy Narrative 02/17/2025 8:33 AM CDT Right Eye Quality was good. Left Eye Quality was good. Notes Hazy peripheral views OD>OS Marimar Newberry OD OPHTH PHOTOGRAPH Y Final Result * Screening Mammogram Bilateral W Kodak (12/14/2023 11:02 AM VIOLIN RESTORER) Anatomical Region Laterality Modality Breast Bilateral Mammography Narrative 12/14/2023 11:28 AM VIOLIN RESTORER Mammogram Technique: Bilateral Digital Breast Tomosynthesis, Bilateral C-view 2D Screening mammogram. Views obtained: bilateral craniocaudal and bilateral mediolateral oblique. Computer Aided Detection was performed. Mammogram Findings: The present examination has been compared to prior imaging studies performed at [facility] on 06/22/2015, 12/16/2021 and 12/06/2022. There are scattered areas of fibroglandular density. There are calcifications in both breasts. Impression: Calcifications in both breasts are benign. Annual screening mammography is recommended. OVERALL FINAL ASSESSMENT: BI-RADS CATEGORY 2: Benign. Procedure Note Mel Catalan MD - 12/14/2023 Mammogram Technique: Bilateral Digital Breast Tomosynthesis, Bilateral C-view 2D Screening mammogram. Views obtained: bilateral craniocaudal and bilateral mediolateral oblique. Computer Aided Detection was performed. Mammogram Findings: The present examination has been compared to prior imaging studies performed at [facility] on 06/22/2015, 12/16/2021 and 12/06/2022. There are scattered areas of fibroglandular density. There are calcifications in both breasts. Impression: Calcifications in both breasts are benign. Annual screening mammography is recommended. OVERALL FINAL ASSESSMENT: BI-RADS CATEGORY 2: Benign. Self Referral IMG MAMMO PROCEDURES Final Resul t * (ABNORMAL) POCT hemoglobin A1c (02/22/2022 10:26 AM CDT) Hemoglobin A1C, POC 6.8 Blood specimen (specimen) 02/22/2022 10:26 AM CDT Krista SEVERINO POINT OF CARE TEST ORDE BEATRIZASIYA Final Result * (ABNORMAL) eGFR (08/30/2021 9:53 PM VIOLIN RESTORER) Pathologist [facility] eGFR 7(L) 90 - 130 mL/min/1.7 3 m2 [facility] Comment: Interpretive Data Reference Interval Normal >/= 90 mL/min/1.73m2 Mildly decreased* 60 - 89 mL/min/1.73m2 Mildly to moderately decreased 45 - 59 mL/min/1.73m2 Moderately to severely decreased 30 - 44 mL/min/1.73m2 Severely decreased 15 - 29 mL/min/1.73m2 Kidney Failure < 15 mL/min/1.73m2 *Relative to young adult level Estimated glomerular filtration rate is determined by the CKD-EPI equation recommended by the National Kidney Foundation (KDIGO 2012 Clinical Practice Guideline for the Evaluation and Management of Chronic Kidney Disease. Kidney Intnl Suppl Oct 2012;3:1). The CKD-EPI equation should not be used for patients with unstable renal function and has not been validated in children and those over 70. Current interpretive data was last reviewed 2020 Blood 08/30/2021 9:53 PM VIOLIN RESTORER 08/31/2021 1:30 AM VIOLIN RESTORER us Slava Lowe MD LAB BLOOD ORDERABLES Karlee mike Result [facility] Department [place] [address] * Hepatitis panel, acute (11/14/2020 10:19 AM VIOLIN RESTORER) [facility] Hep A IgM Nonreactive Nonreactive [facility] Comment: Interpretive Data: If Hep A IgM Ab is reported as Equivocal, a new sample should be drawn in two weeks for testing. Current interpretive data was last revised on 20. Hep B core IgM Nonreactive Nonreactive [facility] Comment: Interpretive Data If HepB Core IgM Ab is reported as Equivocal, a new sample should be drawn in two weeks for testing. Current interpretive data was last revised on 20. Hep C Ab Nonreactive Nonreactive [facility] Comment: Interpretive Data Nonreactive: Antibodies to HCV not detected. Does NOT exclude the possibility of recent exposure to HCV. Equivocal: Equivocal for HCV antibodies. Supplemental molecular testing will be automatically performed to determine infection status in accordance with current CDC screening recommendations. Reactive: Positive for HCV antibodies. This may represent current or past HCV infection. Supplemental molecular testing will be automatically performed to determine current infection status in accordance with current CDC screening recommendations. Interpretive data was last revised on 2020. HepBsAg Nonreactive [facility] Blood specimen (specimen) 11/14/2020 10:19 AM VIOLIN RESTORER 11/14/2020 10:19 AM VIOLIN RESTORER us Pierce Clark MD LAB MICROBIOLOGY - GENERAL ORDERABLES Final Result [facility] [address] Department [place] [address] * COLONOSCOPY (06/04/2020 4:03 PM CDT) Anatomical Region Laterality Modality Other Narrative Procedure Note Cruzito Benitez MD - 06/04/2020 4:03 PM CDT [facility] Patient Name: Fani Horton Procedure Date: 06/04/2020 4:03 PM Date of : 1960 Admit Type: Inpatient Age: 60 Gender: Female Attending MD: Cruzito Simms M.D. Room: [facility] OR POD 5 ROOM 224 Note Status: Finalized Procedure: Colonoscopy Indications: Hematochezia. 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 Referring MD: Providers: Cruzito Simms M.D., Jay Jay Newsome M.D. Medicines: Monitored Anesthesia Care Complications: No immediate complications. Estimated Blood Loss: Estimated blood loss was minimal. Procedure: Pre-Anesthesia Assessment: - The risks and benefits of the procedure and the sedation options and risks were discussed with the patient. All questions were answered and informed consent was obtained. - Immediately prior to administration ofmedications, the patient was re-assessed for adequacy to receive sedatives. The benefits, risks and alternatives of theprocedure and sedation were discussed and informed consent was obtained. All questions were answered. Please referto the signed informed consent document in the medical record. The scope was passed under direct vision.The [id number] Endoscope was introduced throughthe anus and advanced to the cecum, identified by appendiceal orifice and ileocecal valve. The colonoscopy was performed without difficulty. The patient tolerated the procedure well. The quality of the bowel preparation was evaluated using the BBPS ([place] Bowel Preparation Scale) with scores of:Right Colon = 2 (minor amount of residual staining, small fragments of stool and/or opaque liquid, but mucosa seen well), Transverse Colon = 2 (minor amount of residual staining, small fragments of stool and/or opaque liquid, but mucosa seen well) and Left Colon= 2 (minor amount of residual staining, small fragmentsof stool and/or opaque liquid, but mucosa seen well).The total BBPS score equals 6. The quality of the bowel preparation was good. The quality of the bowel preparation was good. The bowel preparation used was GoLYTELY. Findings: The perianal and digital rectal examinations were normal. There is no endoscopic evidence of bleeding, diverticula, erythema, inflammation or ulcerations in the entire colon. A 3 mm, non-bleeding polyp was found in the splenic flexure. Thepolyp was pedunculated and appeared inflammatory and ulcerated. To further evaluated the etiology of the polyp , it was removed with a coldsnare. Resection and retrieval were complete. To prevent bleeding post-intervention, one hemostatic clip was successfully placed (MR conditional). There was no bleeding at the end of the procedure. The exam was otherwise without abnormality on direct and retroflexion views. Impression: - Hematochezia, possibly related to the 3mmulcerated and pedunculated polyp located at the splenicflexure. This was resected and clipped - The examination was otherwise normal on direct and retroflexion views. The single diverticulum noted on prior examination was not seen on today's exam. Recommendation: - [facility] - Resume anticoagulant medication at prior dosetoday. - Await pathology results. - Further recommendations per GI consult service. Attending Participation: I personally performed the entire procedure. Electronically signed by Cruzito Simms MD Cruzito Simms M.D. 06/04/2020 5:08:44 PM Number of Addenda: 0 Note Initiated On: 06/04/2020 4:03 PM Recognized by the [place] [employer] for promoting quality in endoscopy Cruzito Simms MD ENDOSCOPY PROCEDURES Final Result * Lipid panel (06/03/2020 2:56 AM CDT) Cholesterol 163 30 - 199 mg/dL [facility] Comment: Interpretive Data Ages < or = 19 years Acceptable: <170 mg/dL Borderline high: 170-199 mg/dL High: >or= 200 mg/dL Ages > or = 20 years Desirable: <200 mg/dL Borderline high: 200-239 mg/dL High: >or= 240 mg/dL Literature References: 1. Expert Panel on Integrated Guidelines for Cardiovascular Health and Risk Reduction in Children and Adolescents. Pediatrics 2011;128:S213 2. NCEP Expert Panel. Circulation 2004;110:227 Current Interpretive Data was last revised on 2018. Triglycerides 125 <=149 mg/dL [facility] Comment: Interpretive Data Ages < or = 9 years Acceptable: <75 mg/dL Borderline high: 75-99 mg/dL High: >or= 100 mg/dL Ages 10 to 20 years Acceptable: <90 mg/dL Borderline high: 90-129 mg/dL High: >or= 130 mg/dL Ages > or = 20 years Desirable: <150 mg/dL Borderline high: 150-199 mg/dL High: 200-499 mg/dL Very high: >or= 499 mg/dL Literature References: 1. Expert Panel on Integrated Guidelines for Cardiovascular Health and Risk Reduction in Children and Adolescents. Pediatrics 2011;128:S213 2. NCEP Expert Panel. Circulation 2004;110:227 Current Interpretive Data was last revised on 2018. HDL 67 >=40 mg/dL [facility] Comment: Interpretive Data Ages < or = 19 years Acceptable: >45 mg/dL Borderline low: 40-45 mg/dL Low: <40 mg/dL Ages > or = 20 years Desirable: >or= 60 mg/dL Low: <40 mg/dL Literature References: 1. Expert Panel on Integrated Guidelines for Cardiovascular Health and Risk Reduction in Children and Adolescents. Pediatrics 2011;128:S213 2. NCEP Expert Panel. Circulation 2004;110:227 Current Interpretive Data was last revised on 2018. LDL, calculated 71 <=129 mg/dL [facility] Comment: Interpretive Data Ages < or = 19 years Acceptable: <110 mg/dL Borderline high: 110-129 mg/dL High: >or= 130 mg/dL Ages > or = 20 years Optimal: <100 mg/dL Near optimal: 100-129 mg/dL Borderline high: 130-159 mg/dL High: >160 mg/dL Literature References: 1. Expert Panel on Integrated Guidelines for Cardiovascular Health and Risk Reduction in Children and Adolescents. Pediatrics 2011;128:S213 2. NCEP Expert Panel. Circulation 2004;110:227 Current Interpretive Data was last revised on 2018. Non-HDL Cholesterol 96 mg/dL [facility] Comment: Interpretive Data Ages < or = 19 years Acceptable: <120 mg/dL Borderline high: 120-144 mg/dL High: >145 mg/dL Ages > or = 20 years When triglycerides are >200 mg/dL, Non-HDL cholesterol is a secondary target of therapy with treatment goals that are 30 mg/dL greater than the LDL cholesterol target. Literature References: 1. Expert Panel on Integrated Guidelines for Cardiovascular Health and Risk Reduction in Children and Adolescents. Pediatrics 2011;128:S213 2. NCEP Expert Panel. Circulation 2004;110:227 Current Interpretive Data was last revised on 2018. Chol/HDL ratio 2 ELISEO CRONIN Blood specimen (specimen) 06/03/2020 2:56 AM CDT 06/03/2020 3:07 AM CDT Terence Mayen MD LAB BLOOD ORDERABLES Final Result ELISEO MEHRDAD [facility] [place] [address] from Last 3 Months or Most Recently Relevant to Health Maintenance Insurance MEDICARE [facility] [place] MEDICARE SUPPLEMENT [place] MED[place] [facility] Advance Directives For more information, please contact: [phone] Documents on File Type Date Recorded Patient Trimmer Press Clippings Expl anation ADVANCE DIRECTIVE 05/31/2019 5:52 AM POWER OF INSURANCE RISK SURVEYOR-MEDICAL ADVANCE DIRECTIVE 04/30/2019 7:33 PM POWER OF INSURANCE RISK SURVEYOR-MEDICAL ADVANCE DIRECTIVE 04/24/2019 2:54 PM POWER OF INSURANCE RISK SURVEYOR-MEDICAL * Full Code (Latest Code Status on File) Date Activated Date Inactivated Comments 03/09/2021 8:03 AM 03/09/2021 2:26 PM * Full Code Date Activated Date Inactivated Comments 11/14/2020 5:11 AM 11/17/2020 4:37 PM * Full Code Date Activated Date Inactivated Comments 11/14/2020 1:24 AM 11/14/2020 5:11 AM * Full Code Date Activated Date Inactivated Comments 06/04/2020 2:56 PM 06/05/2020 9:52 PM * Full Code Date Activated Date Inactivated Comments 06/03/2020 6:22 PM 06/04/2020 2:56 PM Care Teams [employer] Cloud Consulting Architect Relationship Specialty Start Date End Date Marguerite Fuchs MD PCP - General Family Practice 10/27/20 Chelle Espinoza MD Referring Physician Endocrinology Diabetes & Metabolism 03/06/20 Aft, Cesilia Allen MD PhD Surgeon Surgical Oncology 11/18/21 [place] [id number] [address] Consulting Physician Nephrology 05/12/24 Catherine Cain PA [address] [facility], [address] [address] Physician Stock Buyer Physician Stock Buyer 05/17/25
--- OUTSIDE RECORDS SUMMARY | 2025-05-19 11:23 | XMS_ITS ---
Author Organization [facility] Address [address] [place] [address] Care Team Providers Care Bingo Worker Name Role Phone Chelle Espinoza MD Unavailable Marguerite Fuchs MD Primary Care Provider Aft, Cesilia Allen MD PhD Unavailable Peter Joe MD Unavailable [phone] Catherine Cain Unavailable Dialysis Access Sites Type Status Location Placement Date Removal Da te AV graft Active Left Upper Arm - Anterior 05/28/2019 Hemodialysis Catheter Tunneled catheter Internal Jugular Inactive Right Neck (side) - Anterior 04/23/2019 07/18/2019 Hemodialysis Cath Triple Inactive Right N ander (side) - Anterior 04/19/2019 04/23/2019 Procedures Procedure Name Priority Date/Time Associated Diagnosis [...] Read Routine (OP Routine) 12/14/2023 11:02 AM FOOD AND BEVERAGE ORDER CLERK Screening mammogram, encounter for POCT HEMOGLOBIN A1C Routine 02/22/2022 1 0:26 AM CDT Type 2 diabetes mellitus with complication, with long-term current use of insulin (HCC) EGFR STAT 08/30/2021 9:53 PM FOOD AND BEVERAGE ORDER CLERK HEPATITIS PANEL, ACUTE STAT 11/14/2020 10:19 AM FOOD AND BEVERAGE ORDER CLERK COLONOSCOPY 06/04/2020 4:03 PM CDT LIPID PANEL STAT 06/03/2020 2:56 AM CDT from Last 3 Months or Most Recently Relevant to Health Maintenance Allergies Active Allergy Reactions Criticality Noted Date [...] a week Take with dialysis Mon, Wed, Fri 07/04/20 22 Active ferric citrate (Auryxia) 210 mg [...] complication, with long-term current use of insulin ([facility]),Class 3 severe obesity due to excess calories with serious comorbidity and body mass index (BMI) of 60.0 to 69.9 in adult Inject 0.5 mL (2.5 mg total) under the skin every 7 days 6 mL 2 02/13/20 25 Active insulin glargine (TOUJEO) 300 unit/mL (1.5 mL) pen for injectionIndications :Type 2 diabetes mellitus with complication, with long-term current use of insulin ([facility]) Inject 44 units under the skin daily. 42 mL 2 02/13/20 25 Active insulin lispro-aabc (LYUMJEV) 100 unit/mL pen for injectionIndications :Type 2 diabetes mellitus with complication, with long-term current use of insulin ([facility]) Inject 24-29 units with breakfast, 38-32 units with lunch and dinner and 5 units with snacks. Max TDD 110 units daily 99 mL 2 02/13/20 25 Active glucagon (BAQSIMI) 3 mg/actuation spray,non-aerosolInd ications:Type 2 diabetes mellitus with complication, with long-term current use of insulin ([facility]) Administer 1 spray into one nostril [...] 02/10/2021 Assessment & Plan (11/11/2021 12:12 PM FOOD AND BEVERAGE ORDER CLERK): Pfizer vaccine 10/09/2021, 03/03/2021, 02/10/2021 Abnormal findings [...] Monitor. Assessment & Plan (10/26/2023 9:15 AM FOOD AND BEVERAGE ORDER CLERK): Defer cataract surgery until signs and symptoms indicate. Pt was educated on the diagnosis. Recommend daily UV eye protection. Assessment & Plan (10/27/2020 9:01 AM FOOD AND BEVERAGE ORDER CLERK): Not yet Visually significant; defer cataract extraction [...] rescue Assessment & Plan (11/23/2019 5:30 PM FOOD AND BEVERAGE ORDER CLERK): Due to insulin overdose (accidental) - continue to monitor as above and treat as needed per hypoglycemia protocol Assessment & Plan (11/22/2019 10:08 PM FOOD AND BEVERAGE ORDER CLERK): Due to insulin overdose (accidental) - continue to monitor as above and treat as needed per hypoglycemia protocol Cellulitis of leg, right 11/22/2019 Assessment & Plan (11/23/2019 5:30 PM FOOD AND BEVERAGE ORDER CLERK): Was seen by dermatology on 11/08/2019 at which time culture was performed. Patient has culture results which are positive for proteus mirabilis sensitive to ampicillin. She was prescribed ampicillin 500mg BID for 30 days per patient. 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 90-day Dexcom GMI 7.6%, above goal. Lab Results Component Value Date HGBA1C 6.8 02/22/2022 Per [employer], goal A1c is less 7% [...] etc. Assessment & Plan (08/26/2019 7:42 AM FOOD AND BEVERAGE ORDER CLERK): No longer requires insulin therapy now that [...] 10/2019. Had a catheter for HD in [facility]. Initially managed with eliquis but transitioned to [...] 06/26/2019 Assessment & Plan (11/23/2019 5:30 PM FOOD AND BEVERAGE ORDER CLERK): Continue allopurinol Assessment & Plan (11/22/2019 10:03 PM FOOD AND BEVERAGE ORDER CLERK): Continue allopurinol Assessment & Plan (07/16/2019 9:40 [...] safety. Assessment & Plan (11/15/2024 9:09 PM FOOD AND BEVERAGE ORDER CLERK): Managed by renal, need to minimize risk [...] hypoglycemia. Assessment & Plan (10/20/2022 10:20 AM FOOD AND BEVERAGE ORDER CLERK): Need to minimize risk of hypoglycemia. Assessment [...] hypoglycemia Assessment & Plan (11/23/2019 5:30 PM FOOD AND BEVERAGE ORDER CLERK): HD MWF Access: Last HD: 11/20 (mon). She had rescheduled her outpatient HD for today (Thursday 11/23 at 10:30am) - consult renal given elevating blood sugars, will need regimen going forward with current infection. Assessment & Plan (11/23/2019 5:20 PM FOOD AND BEVERAGE ORDER CLERK): HD MWF Access: Last HD: 11/20 (mon). She had rescheduled her outpatient HD for today (Thursday 11/23 at 10:30am) - consult renal given elevating blood sugars, will need regimen going forward with current infection. Assessment & Plan (08/26/2019 7:43 AM FOOD AND BEVERAGE ORDER CLERK): No longer requires insulin therapy. Assessment & [...] bilateral knee pain. Patient discharge with home PT/OT/residential which has not been initiated. Continue lidocaine patch bilateral knees, oral prn tylenol and diclofenac dose increased to 4gm with improvement. Encouraged patient to use medications to improve mobility with therapy and agreeable. PT/OT for debilitation. Await SNF, insurance approval still pending while accepted by facility. Appears well controlled on current regimen. Assessment & Plan (07/27/2019 11:16 AM CDT): Recent admission for OA bilateral knee pain. Patient discharge with home PT/OT/residential which has not been initiated. Continue lidocaine patch bilateral knees, oral prn tylenol and diclofenac dose increased to 4gm with improvement. Encouraged patient to use medications to improve mobility with therapy and agreeable. PT/OT for debilitation. Await SNF, insurance approval still pending while accepted by facility. Assessment & Plan (07/26/2019 11:41 AM CDT): Recent admission for OA bilateral knee pain. Patient discharge with home PT/OT/residential which has not been initiated. Continue lidocaine patch bilateral knees, oral prn tylenol and diclofenac dose increased to 4gm with improvement. Encouraged patient to use medications to improve mobility with therapy and agreeable. PT/OT for debilitation. Await SNF, insurance approval still pending. Assessment & Plan (07/25/2019 11:17 AM CDT): Recent admission for OA bilateral knee pain. Patient discharge with home PT/OT/residential which has not been initiated. Continue lidocaine patch bilateral knees, oral prn tylenol and diclofenac dose increased to 4gm with improvement. Encouraged patient to use medications to improve mobility with therapy and agreeable. PT/OT for debilitation. Await SNF Assessment & Plan (07/24/2019 2:04 PM CDT): Recent admission 07/10-07/19 for bilateral knee pain. Patient discharge with home PT/OT/residential which has not been initiated. -continue lidocaine patch bilateral knees -continue prn tylenol and diclofenac PT/OT for debilitation. Assessment & Plan (07/23/2019 1:55 PM CDT): Recent admission for bilateral knee pain. Patient discharge with home PT/OT/residential which has not been initiated. -continue lidocaine patch bilateral knees -continue prn tylenol and diclofenac Assessment & Plan (07/22/2019 6:15 PM CDT): Recent admission 07/10-07/19 for bilateral knee pain. Patient discharge with home PT/OT/residential which has not been initiated. -continue lidocaine [...] 01/09/2019 Assessment & Plan (11/23/2019 5:30 PM FOOD AND BEVERAGE ORDER CLERK): Continue phos binder - phos 4.9, prior to dialysis. - patient reports previously low and discontinued sevelamer Assessment & Plan (11/23/2019 5:23 PM FOOD AND BEVERAGE ORDER CLERK): Continue phos binder - phos 4.9, prior to dialysis. - patient reports previously low and discontinued sevelamer Anemia of chronic renal failure 06/01/2018 Assessment & Plan (11/23/2019 5:29 PM FOOD AND BEVERAGE ORDER CLERK): Usually received darbopoietin on Fridays with HD. - CBC stable. Assessment & Plan (11/23/2019 5:18 PM FOOD AND BEVERAGE ORDER CLERK): Usually received darbopoietin on Fridays with HD. [...] Component Value Date HGBA1C 6.8 02/22/2022 Per [place] [employer], goal A1c is less 7% [...] etc. Assessment & Plan (11/15/2024 9:10 PM FOOD AND BEVERAGE ORDER CLERK): Overall glycemic control is within a reasonable range of control and safety. A1c 6.6% Assessment & Plan (05/12/2024 2:26 PM CDT): Glucoses a little high, but need to minimize risk of hypoglycemia. Assessment & Plan (02/08/2024 8:39 PM CDT): Glucoses very high after meals. Needs adjustments in basal and mealtime insulins. Assessment & Plan (10/26/2023 9:15 AM FOOD AND BEVERAGE ORDER CLERK): Pt ed. Stressed BG control (HbA1C<7) to [...] diabetes. Assessment & Plan (10/22/2022 12:48 PM FOOD AND BEVERAGE ORDER CLERK): Awaiting Hemoglobin A1c result; Dexcom report average [...] and she has also met with a artificial marble worker. Assessment & Plan (02/23/2022 10:29 AM CDT): Hemoglobin A1c decreased to 6.8%, with minimal hypoglycemia. Continue using Dexcom for continuous monitoring and low BG alarms. She is taking Lantus PM daily, consistently. She is taking Humalog with meals and using sliding scale. She plans to continue making diet changes to help lower BG. Assessment & Plan (11/18/2021 12:55 PM FOOD AND BEVERAGE ORDER CLERK): Needs adjustments in insulins, particularly with variable [...] hypoglycemia. Assessment & Plan (10/27/2020 9:01 AM FOOD AND BEVERAGE ORDER CLERK): No retinopath; pt ed BG control -annual [...] today Assessment & Plan (11/15/2024 9:09 PM FOOD AND BEVERAGE ORDER CLERK): Continue supplement, monitored by renal Assessment & [...] renal Assessment & Plan (11/18/2021 12:52 PM FOOD AND BEVERAGE ORDER CLERK): Continue supplement, monitored by renal Assessment & Plan (03/17/2021 2:38 PM CDT): Continue supplement, monitored by renal Assessment & Plan (03/06/2020 10:42 AM CDT): Continue supplement, monitored by renal Assessment & Plan (06/15/2018 7:52 AM CDT): On daily supplement, chronic renal insufficiency Pes planus 10/18/2012 JASON on CPAP 10/18/2012 Assessment & Plan (11/23/2019 5:30 PM FOOD AND BEVERAGE ORDER CLERK): Continue CPAP with sleep. - CPAP ordered Assessment & Plan (11/22/2019 10:09 PM FOOD AND BEVERAGE ORDER CLERK): Continue CPAP with sleep. - CPAP ordered [...] mask/CPAP. Sleeping well. Defer to PCP for bed bug exterminator weight management & goal setting for weight loss, with morbid obesity (BMI 60) playing a role. Assessment & Plan (07/27/2019 11:17 AM CDT): JASON w/ cpap at night, setting 11cmHg. Compliant with nightly mask/CPAP. Sleeping well. Defer to PCP for bed bug exterminator weight management, with morbid obesity (BMI 60) playing a role. Assessment & Plan (07/26/2019 11:43 AM CDT): JASON w/ cpap at night, setting 11cmHg. Compliant with nightly mask. Sleeping well. Defer to PCP for group [...] QHS Assessment & Plan (11/23/2019 5:30 PM FOOD AND BEVERAGE ORDER CLERK): Continue Cymbalta and gabapentin Assessment & Plan (11/22/2019 10:12 PM FOOD AND BEVERAGE ORDER CLERK): Continue Cymbalta and gabapentin Assessment & Plan (08/26/2019 7:43 AM FOOD AND BEVERAGE ORDER CLERK): Clinically stable at this time Assessment & [...] panel Assessment & Plan (11/15/2024 9:09 PM FOOD AND BEVERAGE ORDER CLERK): Continue statin, optimize glycemic control. Assessment & [...] dialysis. Assessment & Plan (10/20/2022 10:17 AM FOOD AND BEVERAGE ORDER CLERK): She is taking ezetimibe 10mg, no longer [...] bleed. Assessment & Plan (11/23/2019 5:29 PM FOOD AND BEVERAGE ORDER CLERK): Continue home losartan - routine vitals Assessment & Plan (11/23/2019 5:26 PM FOOD AND BEVERAGE ORDER CLERK): Continue home losartan - routine vitals Assessment [...] Leiomyoma of uterus 09/20/2010 Cobalamin deficiency 09/20/2010 Immunizations Immunization Administration Dates Next Due Influenza, [...] 1 978 - 1988 Smokeless Tobacco: Never Tobacco Cessation:Counseling Given: No [...] on file Legal Sex Female 3:06 AM FOOD AND BEVERAGE ORDER CLERK Gender Identity Not on file Sexual Orientation Not on file Last Filed Vital Signs Vital Sign Reading Time Taken Comments Blood Pressure 115/62 02/12/2025 11:34 AM CDT automatic retake Pulse 75 02/12/2025 10:14 AM CDT Temperature 36.6 C (97.8 F) 02/12/2025 10:14 AM CDT Respiratory Rate 19 08/30/2024 3:00 PM FOOD AND BEVERAGE ORDER CLERK Oxygen Saturation 92% 08/30/2024 3:0 0 PM FOOD AND BEVERAGE ORDER CLERK Inhaled Oxygen Concentration - - Weight 146.3 kg (322 lb 9.6 oz) 02/12/2025 10:14 AM CDT Height 152.4 cm (5') 02/12/2025 10:14 AM CDT Body Mass Index 63 02/12/2025 10:14 AM CDT Results * Glucose (04/01/2025 8:52 AM CDT) Historical Provider MD LAB BLOOD ORDERABLES Karlee l Result Performing Organization Address [facility] Co de Phone Number EXTERNAL LAB * CALCIUM (04/01/2025 8:52 AM CDT) Historical Provider MD LAB BLOOD ORDERABLES Karlee l Result Performing Organization Address [facility] Co de Phone Number EXTERNAL LAB * Vitamin D, 25-Hydroxy, Total (04/01/2025 8:52 AM CDT) Historical Provider LAB BLOOD ORDERABLES Karlee l Result Performing Organization Address [facility] de Phone Number EXTERNAL LAB * A1C (manual) (04/01/2025 8:52 AM CDT) Result [facility] Provider MD LAB BLOOD ORDERABLES Karlee l Result Performing Organization Address [place]/[facility] de Phone Number EXTERNAL LAB * Iron profile w/ IBC (04/01/2025 8:52 AM CDT) Blood Result [facility] Provider MD LAB BLOOD ORDERABLES Karlee l Result Performing Organization Address [place]/[facility] de Phone Number EXTERNAL LAB * CBC without differential (04/01/2025 8:52 AM CDT) Blood Result [facility] Provider MD LAB BLOOD ORDERABLES Karlee l Result Performing Organization Address [place]/[facility] de Phone Number EXTERNAL LAB * Phosphorus (04/01/2025 8:52 AM CDT) Blood Result [facility] Provider MD LAB BLOOD ORDERABLES Karlee l Result Performing Organization Address [place]/[facility] de Phone Number EXTERNAL LAB * PTH (04/01/2025 8:52 AM CDT) Blood Result [facility] Provider MD LAB BLOOD ORDERABLES Karlee l Result Performing Organization Address [place]/[facility] de Phone Number EXTERNAL LAB * Albumin (04/01/2025 8:52 AM CDT) Blood Result [facility] Provider MD LAB BLOOD ORDERABLES Karlee l Result Performing Organization Address [place]/[facility] de Phone Number EXTERNAL LAB * CALCIUM (02/20/2025 4:07 PM CDT) Result [facility] Provider MD LAB BLOOD ORDERABLES Karlee l Result Performing Organization Address [place]/[facility] de Phone Number EXTERNAL LAB * Potassium, Serum (02/20/2025 4:07 PM CDT) Result [facility] Provider MD LAB BLOOD ORDERABLES Karlee l Result Performing Organization Address [place]/[facility] de Phone Number EXTERNAL LAB * Phosphorus (02/20/2025 4:07 PM CDT) Blood Result [facility] Provider MD LAB BLOOD ORDERABLES Karlee l Result Performing Organization Address [place]/[facility] de Phone Number EXTERNAL LAB * PTH (02/20/2025 4:07 PM CDT) Blood Result [facility] Provider MD LAB BLOOD ORDERABLES Karlee l Result Performing Organization Address [facility] de Phone Number EXTERNAL LAB * Albumin (02/20/2025 4:07 PM CDT) Blood Result [facility] Provider MD LAB BLOOD ORDERABLES Karlee l Result Performing Organization Address [place]/[facility] de Phone Number EXTERNAL LAB * Fundus Photos/FAF - OU - Both Eyes (02/17/2025 8:33 AM CDT) Anatomical Region Laterality Modality Head Fundus Photograp hy Narrative 02/17/2025 8:33 AM CDT Right Eye Quality was good. Left Eye Quality was good. Notes Hazy peripheral views OD>OS Result [facility] Marimar Newberry OD OPHTH PHOTOGRAPH Y Final Result * Screening Mammogram Bilateral W [employer] (12/14/2023 11:02 AM FOOD AND BEVERAGE ORDER CLERK) Anatomical Region Laterality Modality Breast Bilateral Mammography Narrative 12/14/2023 11:28 AM FOOD AND BEVERAGE ORDER CLERK Mammogram Technique: Bilateral Digital Breast Tomosynthesis, Bilateral C-view 2D Screening mammogram. Views obtained: bilateral craniocaudal and bilateral mediolateral oblique. Computer Aided Detection was performed. Mammogram Findings: The present examination has been compared to prior imaging studies performed at [facility] on 06/22/2015, 12/16/2021 and 12/06/2022. There are [...] compared to prior imaging studies performed at [facility] on 06/22/2015, 12/16/2021 and 12/06/2022. There are scattered areas of fibroglandular density. There are calcifications in both breasts. Impression: Calcifications in both breasts are benign. Annual screening mammography is recommended. OVERALL FINAL ASSESSMENT: BI-RADS CATEGORY 2: Benign. Self Referral IMG MAMMO PROCEDURES Final Resul t * (ABNORMAL) POCT hemoglobin A1c (02/22/2022 10:26 AM CDT) Pathologist [facility] Hemoglobin A1C, POC 6.8 Blood specimen (specimen) 02/22/2022 10:26 AM CDT Krista SEVERINO POINT OF CARE TEST VERONA RODRIGUEZ Final Result * (ABNORMAL) eGFR (08/30/2021 9:53 PM FOOD AND BEVERAGE ORDER CLERK) Pathologist [facility] eGFR 7(L) 90 - 130 mL/min/1.7 3 m2 [facility] Comment: Interpretive Data Reference Interval Normal >/= [...] last reviewed 2020 Blood 08/30/2021 9:53 PM FOOD AND BEVERAGE ORDER CLERK 08/31/2021 1:30 AM FOOD AND BEVERAGE ORDER CLERK Slava Lowe MD LAB BLOOD ORDERABLES Karlee mckeon Result [facility] Department [place] [address] * Hepatitis panel, acute (11/14/2020 10:19 AM FOOD AND BEVERAGE ORDER CLERK) Hep A IgM Nonreactive Nonreactive [facility] Comment: Interpretive Data: If Hep A IgM Ab is reported as Equivocal, a new sample should be drawn in two weeks for testing. Current interpretive data was last revised on 20. Hep B core IgM Nonreactive Nonreactive [facility] Comment: Interpretive Data If HepB Core IgM Ab is reported as Equivocal, a new sample should be drawn in two weeks for testing. Current interpretive data was last revised on 20. Hep C Ab Nonreactive Nonreactive [facility] Comment: Interpretive Data Nonreactive: Antibodies to HCV [...] last revised on 2020. HepBsAg Nonreactive Nonreactive [facility] Blood specimen (specimen) 11/14/2020 10:19 AM FOOD AND BEVERAGE ORDER CLERK 11/14/2020 10:19 AM FOOD AND BEVERAGE ORDER CLERK us Pierce Clark MD LAB MICROBIOLOGY - GENERAL ORDERABLES Final Result [facility] [address] Department [place] [address] * COLONOSCOPY (06/04/2020 4:03 PM CDT) Anatomical Region Laterality Modality Other Narrative Procedure Note Cruzito Benitez MD - 06/04/2020 4:03 PM CDT [facility] Patient Name: Fani Horton Procedure Date: 06/04/2020 4:03 PM Date of : 1960 Admit Type: Inpatient Age: 60 Gender: Female Attending MD: Cruzito Simms M.D. Room: [facility] OR POD 5 ROOM 224 Note Status: [...] The scope was passed under direct vision.The [id number] Endoscope was introduced throughthe anus and advanced to the cecum, identified by appendiceal orifice and ileocecal valve. The colonoscopy was performed without difficulty. The patient tolerated the procedure well. The quality of the bowel preparation was evaluated using the BBPS (Eighty Eight Bowel Preparation Scale) with scores of:Right Colon [...] On: 06/04/2020 4:03 PM Recognized by the [employer] for promoting quality in endoscopy Cruzito Simms MD ENDOSCOPY PROCEDURES Final Result * Lipid panel (06/03/2020 2:56 AM CDT) Cholesterol 163 30 - 199 mg/dL [facility] Comment: Interpretive Data Ages < or = [...] revised on 2018. Triglycerides 125 <=149 mg/dL [facility] Comment: Interpretive Data Ages < or = [...] revised on 2018. HDL 67 >=40 mg/dL [facility] Comment: Interpretive Data Ages < or = [...] on 2018. LDL, calculated 71 <=129 mg/dL [facility] Comment: Interpretive Data Ages < or = [...] revised on 2018. Non-HDL Cholesterol 96 mg/dL [facility] Comment: Interpretive Data Ages < or = [...] 2:56 AM CDT 06/03/2020 3:07 AM CDT us Terence Mayen MD LAB BLOOD ORDERABLES Final Result [facility] Department [place] [address] from Last 3 Months or Most Recently Relevant to Health Maintenance
--- OUTSIDE RECORDS SUMMARY | 2025-05-19 11:23 | XMS_ITS | Clinical Summary ---
Author Organization [facility] Address [address] [place] [address] Care Team Providers Care [place] Upholsterer Name Role Phone Chelle Espinoza MD Unavailable Marguerite Fuchs MD Primary Care Provider Aft, Cesilia Allen MD PhD Unavailable Peter Joe MD Unavailable Catherine Cain Unavailable [phone] Allergies Active Allergy Reactions Criticality Noted Date [...] complication, with long-term current use of insulin ([facility]),Class 3 severe obesity due to excess calories with serious comorbidity and body mass index (BMI) of 60.0 to 69.9 in adult Inject 0.5 mL (2.5 mg total) under the skin every 7 days 6 mL 2 02/13/20 25 Active insulin glargine (TOUJEO) 300 unit/mL (1.5 mL) pen for injectionIndications :Type 2 diabetes mellitus with complication, with long-term current use of insulin ([facility]) Inject 44 units under the skin daily. 42 mL 2 02/13/20 25 Active insulin lispro-aabc (LYUMJEV) 100 unit/mL pen for injectionIndications :Type 2 diabetes mellitus with complication, with long-term current use of insulin ([facility]) Inject 24-29 units with breakfast, 38-32 units with lunch and dinner and 5 units with snacks. Max TDD 110 units daily 99 mL 2 02/13/20 25 Active glucagon (BAQSIMI) 3 mg/actuation spray,non-aerosolInd ications:Type 2 diabetes mellitus with complication, with long-term current use of insulin ([facility]) Administer 1 spray into one nostril as needed (severe hypoglycemia) 2 each 3 02/13/20 25 Active pregabalin (LYRICA) 50 mg capsuleIndications:n erve pain Take 1 capsule (50 mg total) by mouth nightly TAKE 1 CAPSULE BY MOUTH ONCE DAILY TAKE ADDITIONAL DOSE AFTER DIALYSIS ON MONDAY, DAY AND MONDAY 120 capsule 2 05/16/20 25 [...] 02/10/2021 Assessment & Plan (11/11/2021 12:12 PM PATIENT INTAKE REPRESENTATIVE): Pfizer vaccine 10/09/2021, 03/03/2021, 02/10/2021 Abnormal findings [...] Monitor. Assessment & Plan (10/26/2023 9:15 AM PATIENT INTAKE REPRESENTATIVE): Defer cataract surgery until signs and symptoms indicate. Pt was educated on the diagnosis. Recommend daily UV eye protection. Assessment & Plan (10/27/2020 9:01 AM PATIENT INTAKE REPRESENTATIVE): Not yet Visually significant; defer cataract extraction [...] rescue Assessment & Plan (11/23/2019 5:30 PM PATIENT INTAKE REPRESENTATIVE): Due to insulin overdose (accidental) - continue to monitor as above and treat as needed per hypoglycemia protocol Assessment & Plan (11/22/2019 10:08 PM PATIENT INTAKE REPRESENTATIVE): Due to insulin overdose (accidental) - continue to monitor as above and treat as needed per hypoglycemia protocol Cellulitis of leg, right 11/22/2019 Assessment & Plan (11/23/2019 5:30 PM PATIENT INTAKE REPRESENTATIVE): Was seen by dermatology on 11/08/2019 at which time culture was performed. Patient has culture results which are positive for proteus mirabilis sensitive to ampicillin. She was prescribed ampicillin 500mg BID for 30 days per patient. 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 90-day Dexcom GMI 7.6%, above goal. Lab Results Component Value Date HGBA1C 6.8 02/22/2022 Per [place] [employer], goal A1c is less 7% [...] etc. Assessment & Plan (08/26/2019 7:42 AM PATIENT INTAKE REPRESENTATIVE): No longer requires insulin therapy now that [...] 10/2019. Had a catheter for HD in [facility]. Initially managed with eliquis but [...] 06/26/2019 Assessment & Plan (11/23/2019 5:30 PM PATIENT INTAKE REPRESENTATIVE): Continue allopurinol Assessment & Plan (11/22/2019 10:03 PM PATIENT INTAKE REPRESENTATIVE): Continue allopurinol Assessment & Plan (07/16/2019 9:40 [...] safety. Assessment & Plan (11/15/2024 9:09 PM PATIENT INTAKE REPRESENTATIVE): Managed by renal, need to minimize risk [...] hypoglycemia. Assessment & Plan (10/20/2022 10:20 AM PATIENT INTAKE REPRESENTATIVE): Need to minimize risk of hypoglycemia. Assessment [...] hypoglycemia Assessment & Plan (11/23/2019 5:30 PM PATIENT INTAKE REPRESENTATIVE): HD MWF Access: Last HD: 11/20 (mon). She had rescheduled her outpatient HD for today (Thursday 11/23 at 10:30am) - consult renal given elevating blood sugars, will need regimen going forward with current infection. Assessment & Plan (11/23/2019 5:20 PM PATIENT INTAKE REPRESENTATIVE): HD MWF Access: Last HD: 11/20 (mon). She had rescheduled her outpatient HD for today (Thursday 11/23 at 10:30am) - consult renal given elevating blood sugars, will need regimen going forward with current infection. Assessment & Plan (08/26/2019 7:43 AM PATIENT INTAKE REPRESENTATIVE): No longer requires insulin therapy. Assessment & [...] bilateral knee pain. Patient discharge with home PT/OT/prison which has not been initiated. Continue lidocaine [...] bilateral knee pain. Patient discharge with home PT/OT/prison which has not been initiated. Continue lidocaine [...] bilateral knee pain. Patient discharge with home PT/OT/prison which has not been initiated. Continue lidocaine patch bilateral knees, oral prn tylenol and diclofenac dose increased to 4gm with improvement. Encouraged patient to use medications to improve mobility with therapy and agreeable. PT/OT for debilitation. Await SNF, insurance approval still pending. Assessment & Plan (07/25/2019 11:17 AM CDT): Recent admission for OA bilateral knee pain. Patient discharge with home PT/OT/prison which has not been initiated. Continue lidocaine patch bilateral knees, oral prn tylenol and diclofenac dose increased to 4gm with improvement. Encouraged patient to use medications to improve mobility with therapy and agreeable. PT/OT for debilitation. Await SNF Assessment & Plan (07/24/2019 2:04 PM CDT): Recent admission 07/10-07/19 for bilateral knee pain. Patient discharge with home PT/OT/prison which has not been initiated. -continue lidocaine patch bilateral knees -continue prn tylenol and diclofenac PT/OT for debilitation. Assessment & Plan (07/23/2019 1:55 PM CDT): Recent admission 07/10-07/19 for bilateral knee pain. Patient discharge with home PT/OT/prison which has not been initiated. -continue lidocaine patch bilateral knees -continue prn tylenol and diclofenac Assessment & Plan (07/22/2019 6:15 PM CDT): Recent admission 07/10-07/19 for bilateral knee pain. Patient discharge with home PT/OT/prison which has not been initiated. -continue lidocaine [...] 01/09/2019 Assessment & Plan (11/23/2019 5:30 PM PATIENT INTAKE REPRESENTATIVE): Continue phos binder - phos 4.9, prior to dialysis. - patient reports previously low and discontinued sevelamer Assessment & Plan (11/23/2019 5:23 PM PATIENT INTAKE REPRESENTATIVE): Continue phos binder - phos 4.9, prior to dialysis. - patient reports previously low and discontinued sevelamer Anemia of chronic renal failure 06/01/2018 Assessment & Plan (11/23/2019 5:29 PM PATIENT INTAKE REPRESENTATIVE): Usually received darbopoietin on Fridays with HD. - CBC stable. Assessment & Plan (11/23/2019 5:18 PM PATIENT INTAKE REPRESENTATIVE): Usually received darbopoietin on Fridays with HD. [...] Component Value Date HGBA1C 6.8 02/22/2022 Per [place] [employer], goal A1c is less 7% [...] that I am available via phone or Earnesthart if they have any concerns for hypo/hyperglycemia, medication refills, etc. Assessment & Plan (11/15/2024 9:10 PM PATIENT INTAKE REPRESENTATIVE): Overall glycemic control is within a reasonable range of control and safety. A1c 6.6% Assessment & Plan (05/12/2024 2:26 PM CDT): Glucoses a little high, but need to minimize risk of hypoglycemia. Assessment & Plan (02/08/2024 8:39 PM CDT): Glucoses very high after meals. Needs adjustments in basal and mealtime insulins. Assessment & Plan (10/26/2023 9:15 AM PATIENT INTAKE REPRESENTATIVE): Pt ed. Stressed BG control (HbA1C<7) to [...] diabetes. Assessment & Plan (10/22/2022 12:48 PM PATIENT INTAKE REPRESENTATIVE): Awaiting Hemoglobin A1c result; Dexcom report average [...] and she has also met with a new car inspector. Assessment & Plan (02/23/2022 10:29 AM CDT): Hemoglobin A1c decreased to 6.8%, with minimal hypoglycemia. Continue using Dexcom for continuous monitoring and low BG alarms. She is taking Lantus PM daily, consistently. She is taking Humalog with meals and using sliding scale. She plans to continue making diet changes to help lower BG. Assessment & Plan (11/18/2021 12:55 PM PATIENT INTAKE REPRESENTATIVE): Needs adjustments in insulins, particularly with variable [...] hypoglycemia. Assessment & Plan (10/27/2020 9:01 AM PATIENT INTAKE REPRESENTATIVE): No retinopath; pt ed BG control -annual [...] today Assessment & Plan (11/15/2024 9:09 PM PATIENT INTAKE REPRESENTATIVE): Continue supplement, monitored by renal Assessment & [...] renal Assessment & Plan (11/18/2021 12:52 PM PATIENT INTAKE REPRESENTATIVE): Continue supplement, monitored by renal Assessment & Plan (03/17/2021 2:38 PM CDT): Continue supplement, monitored by renal Assessment & Plan (03/06/2020 10:42 AM CDT): Continue supplement, monitored by renal Assessment & Plan (06/15/2018 7:52 AM CDT): On daily supplement, chronic renal insufficiency Pes planus 10/18/2012 JASON on CPAP 10/18/2012 Assessment & Plan (11/23/2019 5:30 PM PATIENT INTAKE REPRESENTATIVE): Continue CPAP with sleep. - CPAP ordered Assessment & Plan (11/22/2019 10:09 PM PATIENT INTAKE REPRESENTATIVE): Continue CPAP with sleep. - CPAP ordered [...] mask/CPAP. Sleeping well. Defer to PCP for long term acute care registered nurse weight management & goal setting for weight loss, with morbid obesity (BMI 60) playing a role. Assessment & Plan (07/27/2019 11:17 AM CDT): JASON w/ cpap at night, setting 11cmHg. Compliant with nightly mask/CPAP. Sleeping well. Defer to PCP for correction weight management, with morbid obesity (BMI 60) playing a role. Assessment & Plan (07/26/2019 11:43 AM CDT): JASON w/ cpap at night, setting 11cmHg. Compliant with nightly mask. Sleeping well. Defer to PCP for long term acute care registered nurse weight management, with morbid obesity (BMI 60) playing a role. Assessment & Plan (07/25/2019 11:19 AM CDT): JASON w/ cpap at night, setting 11cmHg. Compliant with nightly mask. Defer to PCP for correction weight management, with morbid obesity (BMI 60) [...] QHS Assessment & Plan (11/23/2019 5:30 PM PATIENT INTAKE REPRESENTATIVE): Continue Cymbalta and gabapentin Assessment & Plan (11/22/2019 10:12 PM PATIENT INTAKE REPRESENTATIVE): Continue Cymbalta and gabapentin Assessment & Plan (08/26/2019 7:43 AM PATIENT INTAKE REPRESENTATIVE): Clinically stable at this time Assessment & [...] panel Assessment & Plan (11/15/2024 9:09 PM PATIENT INTAKE REPRESENTATIVE): Continue statin, optimize glycemic control. Assessment & [...] dialysis. Assessment & Plan (10/20/2022 10:17 AM PATIENT INTAKE REPRESENTATIVE): She is taking ezetimibe 10mg, no longer [...] bleed. Assessment & Plan (11/23/2019 5:29 PM PATIENT INTAKE REPRESENTATIVE): Continue home losartan - routine vitals Assessment & Plan (11/23/2019 5:26 PM PATIENT INTAKE REPRESENTATIVE): Continue home losartan - routine vitals Assessment [...] 020 Assessment & Plan (11/23/2019 5:30 PM PATIENT INTAKE REPRESENTATIVE): Off insulin since Aug 2019 due to [...] PCP. Assessment & Plan (11/23/2019 5:25 PM PATIENT INTAKE REPRESENTATIVE): Off insulin since Aug 2019 due to [...] line 04/23, plan for outpatient dialysis at [facility] - 120mg IV Lasix BID->bumex - [...] (chronic renal disease), stage IV 01/09/2019 08/23/2019 Encounters Date Type Department Care Team Description 05/16/2025 9:00 AM CDT Clinical Support [facility] Endocrinology Metabolism and Lipid [address] [facility] 13th [place] [address] [place] [address] Shelia Robbins RN Type 2 diabetes mellitus with complication, with long-term current use of insulin (HCC) (Primary Dx); Corns and callosities 05/16/2025 8:00 AM CDT Clinical Support [facility] Endocrinology Metabolism and Lipid [address] [facility] 13 [place] [address] [place] [address] Type 2 diabetes mellitus with complication, with long-term current use of insulin (HCC) (Primary Dx) 05/16/2025 Orders Only [facility] Endocrinology Metabolism and Lipid [address] [place] [address] [place] [address] Catherine Cain PA Type 2 diabetes mellitus with complication, with long-term current use of insulin (HCC) (Primary Dx) 05/16/2025 Telephone [facility] Endocrinology Metabolism and Lipid [address] [place] [address] [place] [address] Maria Dolores Tabares RN 05/15/2025 12:00 PM CDT Telemedicine [facility] Endocrinology Metabolism and Lipid [address] [place] [address] [place] [address] Chelle Espinoza MD Type 2 diabetes mellitus with complication, with long-term current use of insulin (HCC) (Primary Dx); Mixed hyperlipidemia; ESRD (end stage renal disease) on dialysis (HCC); Vitamin D deficiency 05/15/2025 Telephone [facility] Endocrinology Metabolism and Lipid [address] [place] [address] [place] [address] Maria Dolores Tabares RN Prior Auth; [email or web address] 05/15/2025 Telephone [facility] Endocrinology Metabolism and Lipid [address] [place] [address] [place] [id number] Maria Dolores Tabares RN pain managment referral an CDE appt 05/02/2025 Telephone [facility] Surgery [address] [facility] Floor 1 [place] [id number] Pj Toure MD 04/30/2025 Orders Only [facility] Endocrinology Metabolism and Lipid [address] [facility] 5th [place] [address] [place] [address] Marissa Castro MD 04/30/2025 Telephone [facility] Endocrinology Metabolism and Lipid [address] [facility] 5th [place] [address] [place] [address] Maria Dolores Tabares lab technologist results [facility] 04/22/2025 Telephone [facility] Surgery [address] [facility] 8th [place] [address] [place] [address] Pj Toure MD 04/22/2025 Telephone [facility] Surgery [address] [facility] Floor 1 [place] [address] Pj Toure MD 02/28/2025 Orders Only [facility] Endocrinology Metabolism and Lipid [address] [facility] 5th [place] [address] [place] [address] Marissa Castro MD 02/28/2025 Telephone [facility] Endocrinology Metabolism and Lipid [address] [facility] 5th [place] [address] [place] [address] Maria Dolores Tabares RN Lab Results 02/17/2025 10:00 AM CDT Office Visit [facility] Ophthalmology [address] [facility] 6th Floor, [address] [facility] [place] [place] [address] Marimar Newberry, OD Type 2 diabetes mellitus with complication, with long-term current use of insulin (HCC) (Primary Dx); Combined forms of age-related cataract of both eyes; Exotropia, alternating 02/17/2025 9:50 AM CDT Imaging Exam [facility] Ophthalmology [address] [phone] Type 2 diabetes mellitus with complication, with long-term current use of insulin (HCC) from Last 3 Months Immunizations Immunization Administration Dates Next Due Influenza, Quadrivalent, Spl it, Preservative Free, Intramuscular 08/08/2019 Influenza, Trivalent, IM (MDV) 11/14/2015,2012 Influenza, Trivalent, Preser vative Free, Intramuscular 07/23/2012 Influenza, Unspecified 07/31/2023,07/31/2020 Darrius (J&J) SARS-CoV-2 Vaccination 08/01/2023 MMR 09/14/2015,08/14/2015 Pfizer SARS-CoV-2 Monovalent Vaccination (12+ Yrs) PURPLE 10/09/2021,03/03/2021,02/10/2021 Pneumococcal Polysaccharide PPV23 10/18/2020,10/2011,11/19/2010 Tdap 08/14/2015 Surgical History Surgery Date Site/Laterality Comments NC DELIVERY ONLY 10/23/1988 - 10/22/1989 Section - (Added by TW Conv) NC CHOLECYSTECTOMY 10/23/2013 - 10/22/2014 Cholecystectomy - 1993 (Added by TW Conv) COLONOSCOPY 10/23/2019 - 10/22/2020 Complete Colonoscopy - (Added by TW Conv) PARTIAL NEPHRECTOMY 10/23/2011 - 10/22/2012 Left Kidney Surgery Laparoscopic Partial Nephrectomy - left 02/14/2012 (Added by TW Conv) NC UNLISTED PROCEDURE DENTOALVEOLAR STRUCTURES Oral Surgery Tooth Extraction - (Added by TW Conv) TUNNELED LINE PLACEMENT > 5 YEARS 04/23/2019 N/A NC REPAIR FIRST ABDOMINAL WALL HERNIA 10/23/2015 - 10/22/2016 Ventral Hernia Repair - (Added by TW Conv) BREAST BIOPSY 10/23/2015 - 10/22/2016 UPPER GASTROINTESTINAL ENDOSCOPY 10/23/2016 - 10/22/2017 REMOVE TUNNELED LINE 07/18/2019 Left IR INJECTION ARTHROGRAM SI JOINT LEFT INCLUDES IMAGING GUIDANCE 07/21/2022 Left AV FISTULA PLACEMENT 10/23/2018 - 10/22/2019 Medical History Medical History Date Comments Multiparity History Of ___ P revious Pregnancies - - no GDM (Added by TW Conv) Measles Measles (Rubeola ) - (Added by TW Conv) History of urinary tract infection Urinary Tract Infection - (Added by TW Conv) Personal history of malignan t neoplasm of kidney Kidney Cancer - S/P LEFT Jose otic assist partial NX on 02/14/2012- RENAL CELL CARCINOMA (3.7 CM), PAPILLARY TYPE, NERI GRADE 2/4 (Added by TW Conv) Personal history of other di seases of the respiratory system History of acute bronchitis - (Added by TW Conv) Personal history of other in fectious and parasitic diseases History of mumps - (Added by TW Conv) Personal history of other in fectious and parasitic diseases History of varicella - (Adde d by TW Conv) Nonscarring hair loss Alopecia - (Added by TW Conv) Personal history of other en docrine, nutritional and metabolic disease History of diabetes mellitus - (Added by TW Conv) Personal history of other di seases of the musculoskeletal system and connective tissue History of gout - (Added by TW Conv) Essential (primary) hypertension Hypertension - (Added by TW Conv) Gout Arthritis Sleep apnea JASON (obstructive sleep apnea) Obesity Renal disorder Cancer (HCC) Diabetes mellitus (HCC) Covid-19 10/2020 Low oxygen satur ation, chills, aches and cold intolerance. Hospitalized 3 days Low back pain Upper back pain Joint pain Family History Medical History Relation Name Comments Gout Brother Heart disease Brother Hypertension Brother Kidney disease Brother Mitral valve prolapse Brother Arthritis Father Diabetes Father Hypertension Father Anesthesia problems Mother allergy to the dines - betadine/iodine Arthritis Mother Cancer Mother Gout Mother Heart disease Mother Hypertension Mother Pancreatic cancer Mother Adenocarci noma Of The Pancreas - (Added by TW Conv)/Family history of pancreatic cancer - (Added by TW Conv) Diabetes type II Other 1 Type II Renée betes Mellitus - father (Added by TW Conv) Heart disease Other 2 Heart Disease - brother (Added by TW Conv) Diabetes type I Other 3 Type I Diabe ernst Mellitus - daughter (Added by TW Conv) Stroke Other 4 Ischemic Stroke - brother (Added by TW Conv) Hypertension Other 5 Hypertension - father, mother, brother (Added by TW Conv) Prostate cancer Other 6 Prostate Can cer - (Added by TW Conv) Pancreatic cancer Other 7 Adenocarci noma Of The Pancreas - (Added by TW Conv) Mitral valve prolapse Paternal Grandmother Relation Name Status Comments Brother Father Mother Other 1 Other 2 Other 3 Other 4 Other 5 Other 6 Other 7 Paternal Grandmother Social History Tobacco Use Types Packs/Day Years [...] on file Legal Sex Female 3:06 AM PATIENT INTAKE REPRESENTATIVE Gender Identity Not on file Sexual Orientation Not on file Obstetrics History Last Filed Vital Signs Vital Sign Reading Time Taken Comments Blood Pressure 115/62 02/12/2025 11:34 AM CDT automatic retake Pulse 75 02/12/2025 10:14 AM CDT Temperature 36.6 C (97.8 F) 02/12/2025 10:14 AM CDT Respiratory Rate 19 08/30/2024 3:00 PM PATIENT INTAKE REPRESENTATIVE Oxygen Saturation 92% 08/30/2024 3:0 0 PM PATIENT INTAKE REPRESENTATIVE Inhaled Oxygen Concentration - - Weight 146.3 kg (322 lb 9.6 oz) 02/12/2025 10:14 AM CDT Height 152.4 cm (5') 02/12/2025 10:14 AM CDT Body Mass Index 63 02/12/2025 10:14 AM CDT Plan of Treatment Health Maintenance Due Date Last Done Comments Albumin Creatinine Ratio, Urine 1960 Depression Screening 1960 Osteoporosis Screening-Bone Density Scan 1960 Foot Exam 11/28/2020 11/28/2019, 08/23, 09/05/2019, Additional history exists Lipid Panel 06/03/2021 06/03/2020, 04/18/2019 Pneumococcal vaccine 65+ (2 of 2 - PCV) 10/18/2021 10/18/2020, 07/23/2012, 11/19/2010 Zoster Vaccine (2 of 2) 12/04/2021 10/09/2021 Hemoglobin A1C 08/25/2022 02/22/2022, 10/24, 06/08/2021, Additional history exists eGFR 08/30/2022 08/30/2021, 03/2021, 11/15/2020, Additional history exists Well Visit 65+ 2023 Covid-19 Vaccine (5 2023-2 5 season) 2024 08/01/2023, 10/09/2021, 03/03/2021, Additional history exists Breast Cancer Screening-Mammogram 12/14/2024 12/14/2023, 12/06/2022, 12/16/2021, Additional history exists Influenza Vaccine (#1) 2025 , 07/31/2020, 08/08/2019, Additional history exists DTaP/Tdap/Td Vaccine (2 - Td or Tdap) 08/14/2025 08/14/2015 Fall Risk Assessment 08/30/2025 08/30/2024 Dilated Eye Exam 02/17/2026 02/17/2025, 01/2024, 10/25/2022, Additional history exists Colon Cancer Screening-Colonoscopy 06/04/2030 06/04/2020, 08/02/2019 Colon Cancer Screening-CT Colonography Discontinued 06/04/2020, 08/02/2019 Colon Cancer Screening-DNA Stool Discontinued 06/04/20 20, 08/02/2019 Colon Cancer Screening-FIT Discontinued 06/04/2020, Colon Cancer Screening-Sigmoidoscopy Discontinued 06/04/2020, 08/02/2019 Hepatitis C Screening Completed 11/14/2020 , 10/27/2020, 04/22/2019, Additional history exists Hepatitis B Screening Completed 02/03/2023 Goals Goal Patient Goal Type Associated Problems Recent Progress Patient-Stated? Author CCM Chronic Pain Care Plan Chronic Care Management Improving( 8:56 AM PATIENT INTAKE REPRESENTATIVE) Ana Paula Hoff, RN Note: Problem: Chronic Pain Goals: 1. Minimize further functional decline 2. Maximize quality of life 3. 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 [employer] Device Identifier Shelf Expiration Date Model / Serial / Lot Perfect Price [employer] [id number] 4-7mm 45cm 10cm Removable Ring Line Standard Mushroom Cultivator Graft - [id number] - [id number] Implanted:Qty: 1 on 05/28/2019 by Pj Toure MD at [facility] Other - see comments Left: Arm Wl [employer] [id number] 03/31/2024 [id number] / [id number] / Description:Left AV Graft Perfect [employer] Viabahn 7mm 5cm 120cm Delivery System Superficial Femoral Artery [id number] - [id number] - [id number] Implanted:Qty: 1 on 08/30/2024 by Pj Toure MD at [facility] Stent Left: Arm [employer] [id number] 03/26/2027 [id number] / [id number] / Procedures Procedure Name Priority Date/Time Associated [...] Read Routine (OP Routine) 12/14/2023 11:02 AM PATIENT INTAKE REPRESENTATIVE Screening mammogram, encounter for POCT HEMOGLOBIN A1C Routine 02/22/2022 1 0:26 AM CDT Type 2 diabetes mellitus with complication, with long-term current use of insulin (HCC) EGFR STAT 08/30/2021 9:53 PM PATIENT INTAKE REPRESENTATIVE HEPATITIS PANEL, ACUTE STAT 11/14/2020 10:19 AM PATIENT INTAKE REPRESENTATIVE COLONOSCOPY 06/04/2020 4:03 PM CDT LIPID PANEL STAT 06/03/2020 2:56 AM CDT from Last 3 Months or Most Recently Relevant to Health Maintenance Results * Glucose (04/01/2025 8:52 AM CDT) Historical Provider MD LAB BLOOD ORDERABLES Karlee l Result Performing Organization Address City/[facility] Co de Phone Number EXTERNAL LAB * CALCIUM (04/01/2025 8:52 AM CDT) Historical Provider MD LAB BLOOD ORDERABLES Karlee l Result Performing Organization Address City/[facility]/ZIP Co de Phone Number EXTERNAL LAB * Vitamin D, 25-Hydroxy, Total (04/01/2025 8:52 AM CDT) Historical Provider MD LAB BLOOD ORDERABLES Karlee l Result EXTERNAL LAB * A1C (manual) (04/01/2025 8:52 AM CDT) Historical Provider MD LAB BLOOD ORDERABLES Karlee l Result Performing Organization Address City/[facility]/ZIP Co de Phone Number EXTERNAL LAB * Iron profile w/ IBC (04/01/2025 8:52 AM CDT) Blood Result [facility] Provider MD LAB BLOOD ORDERABLES Karlee l Result Performing Organization Address City/[facility] de Phone Number EXTERNAL LAB * CBC without differential (04/01/2025 8:52 AM CDT) Blood Result [facility] Provider MD LAB BLOOD ORDERABLES Karlee l Result Performing Organization Address City/[facility] de Phone Number EXTERNAL LAB * Phosphorus (04/01/2025 8:52 AM CDT) Blood Result [facility] Provider MD LAB BLOOD ORDERABLES Karlee l Result Performing Organization Address City/[facility] de Phone Number EXTERNAL LAB * PTH (04/01/2025 8:52 AM CDT) Blood Result [facility] Provider MD LAB BLOOD ORDERABLES Karlee l Result Performing Organization Address City/[facility] de Phone Number EXTERNAL LAB * Albumin (04/01/2025 8:52 AM CDT) Blood [facility] Provider MD LAB BLOOD ORDERABLES Karlee l Result Performing Organization Address City/[facility] de Phone Number EXTERNAL LAB * CALCIUM (02/20/2025 4:07 PM CDT) Result [facility] Provider MD LAB BLOOD ORDERABLES Karlee l Result Performing Organization Address City/[facility] de Phone Number EXTERNAL LAB * Potassium, Serum (02/20/2025 4:07 PM CDT) [facility] Provider MD LAB BLOOD ORDERABLES Karlee l Result Performing Organization Address City/[facility] de Phone Number EXTERNAL LAB * Phosphorus (02/20/2025 4:07 PM CDT) Blood Historical Provider MD LAB BLOOD ORDERABLES Karlee l Result Performing Organization Address [facility] de Phone Number EXTERNAL LAB * PTH (02/20/2025 4:07 PM CDT) Blood [facility] Provider MD LAB BLOOD ORDERABLES Karlee l Result Performing Organization Address [facility] de Phone Number EXTERNAL LAB * Albumin (02/20/2025 4:07 PM CDT) Blood Result [facility] Provider MD LAB BLOOD ORDERABLES Karlee l Result Performing Organization Address [facility] de Phone Number EXTERNAL LAB * Fundus Photos/FAF - OU - Both Eyes (02/17/2025 8:33 AM CDT) Anatomical Region Laterality Modality Head Fundus Photograp hy Narrative 02/17/2025 8:33 AM CDT Right Eye Quality was good. Left Eye Quality was good. Notes Hazy peripheral views OD>OS Result [facility] Marimar Newberry OD OPHTH PHOTOGRAPH Y Final Result * Screening Mammogram Bilateral W [employer]ak (12/14/2023 11:02 AM PATIENT INTAKE REPRESENTATIVE) Anatomical Region Laterality Modality Breast Bilateral Mammography Narrative 12/14/2023 11:28 AM PATIENT INTAKE REPRESENTATIVE Mammogram Technique: Bilateral Digital Breast Tomosynthesis, Bilateral C-view 2D Screening mammogram. Views obtained: bilateral craniocaudal and bilateral mediolateral oblique. Computer Aided Detection was performed. Mammogram Findings: The present examination has been compared to prior imaging studies performed at [facility] on 06/22/2015, 12/16/2021 and 12/06/2022. There [...] compared to prior imaging studies performed at [facility] on 06/22/2015, 12/16/2021 and 12/06/2022. There are scattered areas of fibroglandular density. There are calcifications in both breasts. Impression: Calcifications in both breasts are benign. Annual screening mammography is recommended. OVERALL FINAL ASSESSMENT: BI-RADS CATEGORY 2: Benign. us Self Referral IMG MAMMO PROCEDURES Final Resul t * (ABNORMAL) POCT hemoglobin A1c (02/22/2022 10:26 AM CDT) Hemoglobin A1C, POC 6.8 Blood specimen (specimen) 02/22/2022 10:26 AM CDT Krista SEVERINO POINT OF CARE TEST VERONA RODRIGUEZ Final Result * (ABNORMAL) eGFR (08/30/2021 9:53 PM PATIENT INTAKE REPRESENTATIVE) eGFR 7(L) 90 - 130 mL/min/1.7 3 m2 [facility] Comment: Interpretive Data Reference Interval Normal >/= [...] last reviewed 2020 Blood 08/30/2021 9:53 PM PATIENT INTAKE REPRESENTATIVE 08/31/2021 1:30 AM PATIENT INTAKE REPRESENTATIVE Slava Lowe MD LAB BLOOD ORDERABLES Karlee l Result Performing Organization Address [facility]/ZIP Co de Phone Number [facility] [place] [address] * Hepatitis panel, acute (11/14/2020 10:19 AM PATIENT INTAKE REPRESENTATIVE) Hep A IgM Nonreactive Nonreactive [facility] Comment: Interpretive Data: If Hep A IgM Ab is reported as Equivocal, a new sample should be drawn in two weeks for testing. Current interpretive data was last revised on 20. Hep B core IgM Nonreactive Nonreactive [facility] Comment: Interpretive Data If HepB Core IgM Ab is reported as Equivocal, a new sample should be drawn in two weeks for testing. Current interpretive data was last revised on 20. Hep C Ab Nonreactive Nonreactive [facility] Comment: Interpretive Data Nonreactive: Antibodies to HCV [...] last revised on 2020. HepBsAg Nonreactive Nonreactive [facility] Blood specimen (specimen) 11/14/2020 10:19 AM PATIENT INTAKE REPRESENTATIVE 11/14/2020 10:19 AM PATIENT INTAKE REPRESENTATIVE us Pierce Clark MD LAB MICROBIOLOGY - GENERAL ORDERABLES Final Result Performing Organization Address City/[facility]/ZIP Co de Phone Number [facility] [address] [place] [address] * COLONOSCOPY (06/04/2020 4:03 PM CDT) Anatomical Region Laterality Modality Other Narrative Procedure Note Cruzito Benitez MD - 06/04/2020 4:03 PM CDT [facility] Patient Name: Fani Horton Procedure Date: 06/04/2020 4:03 PM Date of : 1960 Admit Type: Inpatient Age: 60 Gender: Female Attending MD: Cruzito Simms M.D. Room: [facility] OR POD 5 ROOM 224 Note [...] The scope was passed under direct vision.The [id number] Endoscope was introduced throughthe anus and advanced to the cecum, identified by appendiceal orifice and ileocecal valve. The colonoscopy was performed without difficulty. The patient tolerated the procedure well. The quality of the bowel preparation was evaluated using the BBPS ([place] Bowel Preparation Scale) with scores of:Right Colon [...] On: 06/04/2020 4:03 PM Recognized by the [place] [employer] for promoting quality in endoscopy Cruzito Simms MD ENDOSCOPY PROCEDURES Final Result * Lipid panel (06/03/2020 2:56 AM CDT) Cholesterol 163 30 - 199 mg/dL [facility] Comment: Interpretive Data Ages < or [...] on 2018. Triglycerides 125 <=149 mg/dL [facility] Comment: Interpretive Data Ages < or = [...] revised on 2018. HDL 67 >=40 mg/dL [facility] Comment: Interpretive Data Ages < or [...] on 2018. LDL, calculated 71 <=129 mg/dL [facility] Comment: Interpretive Data Ages < or [...] revised on 2018. Non-HDL Cholesterol 96 mg/dL [facility] Comment: Interpretive Data Ages < or [...] last revised on 2018. Chol/HDL ratio [address] [facility] Blood specimen (specimen) 06/03/2020 2:56 AM CDT 06/03/2020 3:07 AM CDT us Terence Mayen MD LAB BLOOD ORDERABLES Final Result [facility] Department [place] [address] from Last 3 Months or Most Recently Relevant to Health Maintenance Insurance MEDICARE [facility] Address: [facility] [address] [place] [address] [facility] BL CHOICE PRF PPO [place] MEDICARE CIG[place] CIGNA MEDICARE SUPPLEMENT INSURANCE CHOICE [place] MED[place] [facility] Advance Directives For more information, please contact: [phone] Documents on File Type Date Recorded Patient Placement Assistant Expl anation ADVANCE DIRECTIVE 05/31/2019 5:52 AM POWER OF [employer]W CHIEF-MEDICAL ADVANCE DIRECTIVE 04/30/2019 7:33 PM P[employer] OF [employer]W CHIEF-MEDICAL ADVANCE DIRECTIVE 04/24/2019 2:54 PM POWER OF PRESIDENT[employer] HELIC[employer] CREW CHIEF-MEDICAL * Full Code (Latest Code Status on [...] 6:22 PM 06/04/2020 2:56 PM Care Teams Spring Upholsterer Relationship Specialty Start Date End Date Marguerite Fuchs MD PCP - General Family Practice 10/27/20 Chelle Espinoza MD Referring Physician Endocrinology Diabetes & Metabolism 03/06/20 Aft, Cesilia Allen MD PhD Surgeon Surgical Oncology 11/18/21 [place] [id number] [address] Consulting Physician Nephrology 05/12/24 Catherine Cain PA [address] [facility] ENDOCRINOLOGY, [address] [address] Physician Treating Machine Operator Physician Treating Machine Operator 05/17/25
--- OUTSIDE RECORDS SUMMARY | 2025-05-19 11:24 | XMS_ITS ---
Author Organization 1 OF [facility] Address [address] [address] Care Team Providers Care Hand Almond Blancher Name Role Phone Marguerite Fuchs Primary Care Provider Un available Gutierrez Olivarez Unavailable [phone] REASON FOR VISIT DFC (Diabetic foot care) Encounters Encounter Location Date Provider Diagnosis 1 OF [facility] [address] [address] 02/27/2024 Gutierrez Olivarez Plan Of Treatment No Information Progress Notes * Fani HORTON MDOB: (65 yo F)Acc No.[id number]:02/27/2024 Progress Note Patient: Kya KERN Fani Moya Provider: Lupe Olivarez DPM :1960 A ge:64 Y S ex:Female Date:02/27/2024 Address:[address] [place], [place] [id number] Pcp:Marguerite Fuchs Subjective: * Chief Complaints: * 1 . DFC (Diabetic foot care). * Medical History: Objective: * Vitals: Assessment: Plan: * Treatment: * Images: * Electronic signature of Gutierrez Olivarez DPM on 05/19/2025 at 11:23 AM CDT Sign off status: Pending * Provider: Lupe Olivarez DPM Date: 0 02/27/2024 Generated for Printi ng/Fajenniferg/eTransmitting on: 0 05/19/2025 11:23 AM CDT
--- OUTSIDE RECORDS SUMMARY | 2025-05-19 11:24 | XMS_ITS | Continuity of Care Document ---
Author Organization [facility] Address [address] [facility] [address] [place] [address] Phone Care Team Providers Care Department Head Name Role Phone Francois Stout Unavailable Unavailable [...] Diagnoses Date Provider Providers Copied on Encounter [facility], [address] [place] [address] [address], [place], [place], [id number], [place] tel:[phone] [facility] No Information 0201 0 Argelia Parrish. [address] [address], [place], [address], [place]. tel:[phone] Referring Provider: Francois conner [address] [facility] [address], [place], [address]. tel:[phone] [facility], [address], [place], [place], [address], [place] tel:[phone] [facility] No Information Gabe-2 0-201 0 Krishnasamy Francois. [address] [facility] [address], [place], [address], [place]. tel:[phone] Office/outpat ient Visit, Est [facility], [address], [place], [place], [address], [place] tel:[phone] [facility] No Information Dec-3 0-201 0 Krishnasamy Francois. [address] [facility] [address], [place], [place], [facility], [place]. tel:[phone] [facility], [address], [place], [place], [address], [place] tel:[phone] [facility] No Information 3 1-200 9 Krishnasamy Francois. [address] [place] [address], [facility], [place]. tel:[phone] Referring Provider: Francois conner, [address] [place], [place] [address], [facility]. tel:[phone] [facility], [address], [place], [place], [address], [place] tel:[phone] [facility] [place] No Information Apr-2 8-200 9 Krishnasamy Francois. [address] [place] [address], [facility], [place]. tel:[phone] [facility], [address], [place], [place], [address], [place] tel:[phone] [facility] [place] No Information Apr-2 2-200 8 Krishnasamy Francois. [address] [place], [place] [address], [facility], [place]. tel:[phone] [facility], [address], [place], [place], [address], [place] tel:[phone] SEC [facility] No Information Sep- 2-200 6 Mabry AMI Pratt. [address] [facility] , [address], [place], [address], . tel:[phone] Referring Provider: Terence Boland, [address] [facility] [address], [place], [address]. tel:[phone] Family History Family Member Type Diagnosis Age [...]
--- OUTSIDE RECORDS SUMMARY | 2025-05-19 11:24 | XMS_ITS | Continuity of Care Document ---
Author Organization [facility] Address [address] [place] [address] Phone Care Team Providers Care Manager Poker Name Role Phone Jaya Hussein Unavailable Unava ilable Procedures Procedure Date Limit Oral Evaluation- problem focused M Caries Risk Assess & Doc High Risk Sep- Periodontal Risk Assessment Comprehensive Oral Evaluation-New/Est Pt Dental Panoramic Radiographic Image Oral/facial 2D photo images Diagnostic Casts No Charge Periodontal Risk Assessment Oral Cancer Risk Assessment Intra-Oral - Complete Series Of Radiogra phic Images Advance Directives Directive Yes / No Effective Date File Name No Information Encounters Encounter Description Practice Location Reason(s) For Visit Diagnoses Date Provider Providers Copied on Encounter [facility] , [address], [place], [place], [id number], tel:[phone] [facility] Encounter for dental exam and cleaning w/o abnormal findings [facility] [place]. [address], [place], [place], [address]. tel:[phone] Referring Provider: Slava Cortez, [address], [place], [address] . tel:[phone] [facility] , [address], [place], [place], [address], tel:[phone] [facility] Encounter for dental exam and cleaning w abnormal findings Sarah Mckee. [address], [place], [place], [address]. tel:[phone] Referring Provider: Sonya Bell, [address], [place], [address] . tel:[phone] [facility] , [address], [place], [place], [address], tel:[phone] [facility] Encounter for dental exam and cleaning w/o abnormal findings Sarah Mckee. [address], [place], [place], [address]. tel:[phone] [facility] , [address], [place], [place], [address], [place] tel:[phone] Care Guidelines No Information Family History Family Member Type Diagnosis Age At Onset No Information Payers Payer name Insurance type Covered alliance party ID Spencer franz(xin) Angelica [facility] [id number] Social History Type Description Quantity Date Captured [...]
--- OUTSIDE RECORDS SUMMARY | 2025-05-19 11:24 | XMS_ITS | Patient Health Record ---
Author Organization 1 OF [facility] Address [address] [facility] [address] [address] [place] [address] Care Team Providers Care Pharmacy Care Coordinator Name Role Phone Devin Fuchsteokai Primary Care Provider Un available JuanisGutierrez Unavailable [phone] Allergies Allergen (clinical drug ingredient) Drug/Non Drug Allergy documented on EMR Reaction Allergy Type Onset Date Status glipizide glipiZIDE Unknown Drug Allergy Active atorvastatin Lipitor Unknown Drug Allergy Acti ve metformin metFORMIN HCl Unknown Drug Allergy Act sinan sevelamer Renvela Unknown Drug Allergy Active atorvastatin Atorvastatin Unknown Drug Allergy A ctive benazepril Benazepril Unknown Drug Allergy Activ e pravastatin Pravastatin Unknown Drug Allergy Act sinan rofecoxib Rofecoxib Unknown Drug Allergy Active Reason For Referral No Information Medications Medication SIG (Take, Route, Frequency, Duration) Notes Start Date End Date Status Pantoprazole Sodium Active Aspirin 81 Active Midodrine HCl Active Artificial Tear Solution Active Lidocaine HCl Active Insulin Lispro Activ e Albuterol Sulfate ER Active Insulin Glargine (1 Unit Dial) Active Acetaminophen Active Ferrlecit Active Ezetimibe Active diphenhydrAMINE-Zinc Acetate Active Vitamin B + C Complex Active Cyclobenzaprine HCl Active Pregabalin Active Betamethasone Active Paricalcitol Active Auryxia Active Allopurinol Active Social History Tobacco Use: Social History Observation Description Date Details (start date - stop date) Former Smoker NA - NA Tobacco Control (Standard) Question Answer Notes Tobacco use: Former smoker How long has it been since you last smoked? Grea ter than 10 years Problems Problem Type SNOMED Code ICD Code Onset Dates Problem Status W/U Status Risk Notes Problem Neurologic disorder associated with type II diabetes mellitus (082934820) Type 2 diabetes mellitus with other diabetic neurological complication (E11.49) Active confirmed Problem Type 2 diabetes mellitus with peripheral angiopathy (611990971) Type 2 diabetes mellitus with diabetic peripheral angiopathy without gangrene, unspecified whether long-term insulin use (E11.51) Active confirmed Plan Of Treatment No Information Insurance Providers Payer Name Payer Address Payer Phone Subscriber Number Group Number Insured Name Patient Relationship to Insured Coverage Start Date Coverage End Date Medicare [address] [place], [place] [id number] Fani Horton Self - patient is the insured [facility] [address] [place] [id number] Fani Horton Self - patient is the insured Medical (General) History Medical History History ICD Code Neuropathy of Feet Arthritis Diabetes Dialysis Gout kidney disease Surgical History Surgery Date(Month/Year) Graph in Left arm -ecessive bleeding 2022
--- OUTSIDE RECORDS SUMMARY | 2025-05-19 11:24 | XMS_ITS ---
Author Organization 1 OF [facility] Address [address] [employer] [address] [address] Care Team Providers Care Printing Services Coordinator Name Role Phone Marguerite Fuchs Primary Care Provider Un available Gutierrez Olivarez Unavailable [phone] REASON FOR VISIT DFC (Diabetic foot care) Encounters Encounter Location Date Provider Diagnosis 1 OF [facility] [address] [facility] [address] [place] [address] 04/02/2024 Gutierrez Olivarez Plan Of Treatment No Information Progress Notes * Fani HORTON MDOB: (65 yo F)Acc No.[id number]:04/02/2024 Progress Note Patient: Kya KERN Fani Moya Provider: Lupe Olivarez DPM :1960 A ge:64 Y S ex:Female Date:04/02/2024 Address:[address] [place], [place] [address] Pcp:Marguerite Fuchs Subjective: * Chief Complaints: * 1 . DFC (Diabetic foot care). * Medical History: Objective: * Vitals: Assessment: Plan: * Treatment: * Images: * Electronic signature of Gutierrez Olivarez DPM on 05/19/2025 at 11:24 AM CDT Sign off status: Pending * Provider: Lupe Olivarez DPM Date: 0 04/02/2024 Generated for Printi ng/Fajenniferg/eTransmitting on: 0 05/19/2025 11:24 AM CDT
--- OUTSIDE RECORDS SUMMARY | 2025-05-19 11:24 | XMS_ITS | Clinical Summary ---
Author Organization [facility] Address [address] [place] [address] Care Team Providers Care Rand Cementer Name Role Phone Unavailable Primary Care Provider Unavailabl e Social History Tobacco Use Types Packs/Day Years Used Date Smoking Tobacco: Never Alcohol Use Standard Drinks/Week Comments Yes 0 (1 standard drink = 0.6 oz pure alcohol) Alcoholic Drinks/day: Occasional social drink Comments Unknown Sex and Gender Information Value Date Recorded Sex Assigned at Not on file Legal Sex Female 2:50 PM EDT Gender Identity Not on file Sexual Orientation Not on file Plan of Treatment Health Maintenance Due Date Last Done Comments Breast Cancer Screening 1960 Pneumococcal Vaccine: 50+ Ye ars (1 of 2 - PCV) 1977 Colorectal Cancer Screening: Annual FOBT 2007 Colorectal Cancer Screening: Colonoscopy 2007 Colorectal Cancer Screening: Sigmoidoscopy 2007 Diabetes: Hemoglobin A1C 03/19/2021 Diabetes: Ophthalmology Exam 03/19/2021 Diabetes: Pedal Pulse Checked 03/19/2021 Diabetes: Sensory Foot Exam 03/19/2021 Diabetes: Visual Foot Exam 03/19/2021 Influenza Vaccine (#1) 2025 Hepatitis B Vaccine Aged Out No longe r eligible based on patient's age to complete this topic
--- OUTSIDE RECORDS SUMMARY | 2025-05-19 11:24 | XMS_ITS | Encounter Summary ---
Author Organization [facility] Address [address] [place] [address] Phone Care Team Providers Care Capital Markets Specialist Name Role Phone Josephine Acosta MD Primary Care Provider Chelle Espinoza MD Unavailable Sue Cummins RN Unavailable Marguerite Fuchs MD Primary Care Provider RehgNickie NP Unavailable Brennan Wesley MD Unavailable Aft, Cesilia Allen MD PhD Unavailable Peter Joe MD Unavailable [phone] Catherine Cain Unavailable [phone] Encounter Details Date Type Department Care Team (Latest Contact Info) Description 10/04/2019 Orders Only CASTRO IM EML Scanning, Provider Social History Tobacco Use Types Packs/Day Years Used Date Smoking Tobacco: Former Cigarettes 0.3 10 1 978 - 1987 Smokeless Tobacco: Never Alcohol Use Standard Drinks/Week Comments Not Currently 0 (1 standard drink = 0.6 oz pur e alcohol) AUDIT-C Answer Date Recorded Frequency of Alcohol Consumption Never 04/16/2019 Average Number of Drinks Not on file 019 Frequency of Binge Drinking Not on file 03/24 Comments No Sex and Gender Information Value Date Recorded Sex Assigned at Not on file Legal Sex Female 3:06 AM DIRECTOR OF RADIO SERVICES Gender Identity Not on file Sexual Orientation Not on file documented as of this encounter Plan of Treatment Not on file documented as of this encounter Procedures Procedure Name Priority Date/Time Associated Diagnosis Comments SCAN - LABS 10/04/2019 documented in this encounter Results * SCAN - LABS (10/04/2019) us Provider Scanning Final Result documented in this encounter Visit Diagnoses Not on filedocumented in this encounter Additional Health Concerns Infection Onset Date Last Indicated Resolved Time COVID: Suspected 11/09/2020 11/09/2020 11/09/2020 9:53 PM DIRECTOR OF RADIO SERVICES COVID19 11/09/2020 11/09/2020 12/01/2020 3:05 AM DIRECTOR OF RADIO SERVICES COVID: Recovered Comment:Added based on recent COVID infection. 12/01/2020 12/02/2020 03/31/2021 3:05 AM C DT documented as of this encounter Care Teams Capital Markets Specialist Relationship Specialty Start Date End Date Josephine Acosta MD PCP - General Family Medicine 07/02/19 10/26/20 Marguerite Fuchs MD [address] [address] PCP - General Family Practice 10/27/20 Chelle Espinoza MD Referring Physician Endocrinology Diabetes & Metabolism 03/06/20 Sue Cummins, RN [address] [place] [address] [facility] Accounts Supervisor 06/05/20 07/06/20 Nickie Tidwell NP [address] [place] [address] Nurse Practitioner Nurse Practitioner 03/16/21 02/07/24 Brennan Wesley MD [address] [place] [address] Referring Physician Nephrology 03/16/21 05/11/24 Aft, Cesilia Allen MD PhD [address] [place] [address] Surgeon Surgical Oncology 11/18/21 [place] [address] [facility] [address] [place] [address] Consulting Physician Nephrology 05/12/24 Catherine Cain PA [address] [facility] DIV IM ENDOCRINOLOGY, [address] [place] [address] Physician Vegetable Vendor Physician Vegetable Vendor 05/17/25 documented as of this encounter
--- OUTSIDE RECORDS SUMMARY | 2025-05-19 11:24 | XMS_ITS | Encounter Summary ---
Author Organization [facility] Address [address] [place] [address] Phone Care Team Providers Care Poker Room Manager Name Role Phone Chelle Espinoza MD Unavailable Marguerite Fuchs MD Primary Care Provider Aft, Cesilia Allen MD PhD Unavailable [phone] Peter Joe MD Unavailable [phone] Catherine Cain Unavailable Encounter Details Date Type Department Care Team (Latest Contact Info) Description 07/03/2024 Orders Only CASTRO IM EML Scanning, Provider Social History Tobacco Use Types Packs/Day Years Used Date Smoking Tobacco: Former Cigarettes 0.3 10 1 978 - 1988 Smokeless Tobacco: Never Alcohol Use Standard Drinks/Week Comments Not Currently 0 (1 standard drink = 0.6 oz pur e alcohol) AUDIT-C Answer Date Recorded Q1: How often do you have a drink containing alcohol? Never 03/14/2024 Q2: How many drinks containi ng alcohol do you have on a typical day when you are drinking? Patient does not drink Q3: How often do you have si x or more drinks on one occasion? Never 03/14/2024 Hunger Vital Sign Answer Date Recorded Within [...] making you feel afraid or unsafe? Denies 08/08/2023 Comments No Sex and Gender Information Value Date Recorded Sex Assigned at Not on file Legal Sex Female 3:06 AM POST ANESTHESIA ROOM NURSE Gender Identity Not on file Sexual Orientation Not on file documented as of this encounter Plan of Treatment Not on file documented as of this encounter Goals Goal Patient Goal Type Associated Problems Recent Progress Patient-Stated? Author CCM Chronic Pain Care Plan Chronic Care Management Improving( 8:56 AM POST ANESTHESIA ROOM NURSE) No Ana Paula Talley RN Note: Problem: Chronic Pain Goals: 1. Minimize further functional decline 2. Maximize quality of life 3. Control pain Strategies: - Activity/exercise program recommendation - Conservative stepwise pain medicine strategy with multi-disciplinary approach - Recommend healthy lifestyle strategies and compensatory methods as needed documented as of this encounter Procedures Procedure Name Priority Date/Time Associated Diagnosis Comments SCAN - LABS 07/03/2024 documented in this encounter Results * SCAN - LABS (07/03/2024) us Provider Scanning Final Result documented in this encounter Visit Diagnoses Not on filedocumented in this encounter Care Teams Poker Room Manager Relationship Specialty Start Date End Date Marguerite Fuchs MD PCP - General Family Practice 10/27/20 Chelle Espinoza MD Referring Physician Endocrinology Diabetes & Metabolism 03/06/20 Cesilia Aguilar MD PhD Surgeon Surgical Oncology 11/18/21 [place] [address] [facility] [address] [place] [address] Consulting Physician Nephrology 05/12/24 Catherine Cain PA [address] [facility] DIV IM ENDOCRINOLOGY, [facility] [address] [place] [address] Physician Knurling Machine Tender Physician Knurling Machine Tender 05/17/25 documented as of this encounter
== END 2025-05-19 10:55 | disposition home or self-care (01) ==
PROVIDERS: PCP Family Medicine; Visit Provider Nurse Practitioner Family
DX: N85.00 Endometrial hyperplasia, unspecified (principal); N85.2 Hypertrophy of uterus; D25.9 Leiomyoma of uterus, unspecified; N95.0 Postmenopausal bleeding
CPT/HCPCS: 76856

== ENCOUNTER 2025-05-23 11:35 | Outpatient (CLI) | payer MEDICARE, SELFPAY ==
--- OUTSIDE RECORDS SUMMARY | 2025-05-23 11:40 | XMS_ITS ---
Author Organization 1 OF [facility] Address [address] [address] Care Team Providers Care Hr Associate Name Role Phone Marguerite Fuchs Primary Care Provider Un available Gutierrez Olivarez Unavailable [phone] REASON FOR VISIT DFC (Diabetic foot care) Encounters Encounter Location Date Provider Diagnosis [facility] [address] [address] 02/27/2024 Gutierrez Olivarez Plan Of Treatment No Information Progress Notes * Fani HORTON MDOB: (65 yo F)Acc No.[id number]:02/27/2024 Progress Note Patient: Kya KERN Fani Moya Provider: Lupe Olivarez DPM :1960 A ge:64 Y S ex:Female Date:02/27/2024 Address:[address] [place], [place] [id number] Pcp:Marguerite Fuchs Subjective: * Chief Complaints: * 1 . DFC (Diabetic foot care). * Medical History: Objective: * Vitals: Assessment: Plan: * Treatment: * Images: * Electronic signature of Gutierrez Olivarez DPM on 05/23/2025 at 11:40 AM CDT Sign off status: Pending * Provider: Lupe Olivarez DPM Date: 0 02/27/2024 Generated for Printi ng/Fajenniferg/eTransmitting on: 0 05/23/2025 11:40 AM CDT
--- OUTSIDE RECORDS SUMMARY | 2025-05-23 11:40 | XMS_ITS | Patient Health Record ---
Author Organization 1 OF [facility] Address [address] [address] [place] [address] Care Team Providers Care Brick Handler Name Role Phone Devin Fuchsteokai Primary Care Provider Un available JuanisGutierrez Unavailable [phone] Allergies Allergen (clinical drug ingredient) Drug/Non Drug [...] disorder associated with type II diabetes mellitus (899581191) Type 2 diabetes mellitus with other diabetic neurological complication (E11.49) Active confirmed Problem Type 2 diabetes mellitus with peripheral angiopathy (237825790) Type 2 diabetes mellitus with diabetic peripheral angiopathy without gangrene, unspecified whether snf insulin use (E11.51) Active confirmed Plan Of Treatment No Information Insurance Providers Payer Name Payer Address Payer Phone Subscriber Number Group Number Insured Name Patient Relationship to Insured Coverage Start Date Coverage End Date Medicare [address] [place], [place] [id number] Fani Horton Self - patient is the insured [facility] [address] [place] [id number] Fani Horton Self - patient is the insured Medical (General) History Medical History History ICD Code Neuropathy of Feet Arthritis Diabetes Dialysis Gout kidney disease Surgical History Surgery Date(Month/Year) Graph in Left arm -ecessive bleeding 2022
--- OUTSIDE RECORDS SUMMARY | 2025-05-23 11:40 | XMS_ITS | Clinical Summary ---
Author Organization [facility] Address [address] [place] [address] Care Team Providers Care Student Specialist Name Role Phone Chelle Espinoza MD Unavailable [phone] Marguerite Fuchs MD Primary Care Provider Aft, [...] complication, with long-term current use of insulin ([facility]),Class 3 severe obesity due to excess calories with serious comorbidity and body mass index (BMI) of 60.0 to 69.9 in adult Inject 0.5 mL (2.5 mg total) under the skin every 7 days 6 mL 2 02/13/20 25 Active insulin glargine (TOUJEO) 300 unit/mL (1.5 mL) pen for injectionIndications :Type 2 diabetes mellitus with complication, with long-term current use of insulin ([facility]) Inject 44 units under the skin daily. 42 mL 2 02/13/20 25 Active glucagon (BAQSIMI) 3 mg/actuation spray,non-aerosolInd ications:Type 2 diabetes mellitus with complication, with long-term current use of insulin ([facility]) Administer 1 spray into one nostril as needed (severe hypoglycemia) 2 each 3 02/13/20 25 Active pregabalin (LYRICA) 50 mg capsuleIndications:n erve pain Take 1 capsule (50 mg total) by mouth nightly TAKE 1 CAPSULE BY MOUTH ONCE DAILY TAKE ADDITIONAL DOSE AFTER DIALYSIS ON MONDAY, DAY AND MONDAY 120 capsule 2 05/16/20 25 025 Active insulin lispro-aabc (LYUMJEV) 100 unit/mL pen for injectionIndications :Type 2 diabetes mellitus with complication, with long-term current use of insulin ([facility]) Inject 24-29 units with breakfast, 38-32 units with lunch and dinner and 5 units with snacks. Max TDD 110 units daily 99 mL 2 05/20/20 25 Active pregabalin (LYRICA) 50 mg capsuleIndications:n erve pain Take 1 capsule (50 mg total) by mouth nightly TAKE 1 CAPSULE BY MOUTH ONCE DAILY TAKE ADDITIONAL DOSE AFTER DIALYSIS ON MONDAY, AND MONDAY 40 capsule 2 02/11/20 25 025 Discontin ued(Reord er) insulin lispro-aabc (LYUMJEV) 100 unit/mL pen for injectionIndications :Type 2 diabetes mellitus with complication, with long-term current use of insulin ([facility]) Inject 24-29 units with breakfast, 38-32 units with lunch and dinner and 5 units with snacks. 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 Assessment & Plan (10/26/2023 9:15 AM DRILLER MACHINE): Defer cataract surgery until signs and symptoms indicate. Pt was educated on the diagnosis. Recommend daily UV eye protection. Assessment & Plan (10/27/2020 9:01 AM DRILLER MACHINE): Not yet Visually significant; defer cataract extraction [...] rescue Assessment & Plan (11/23/2019 5:30 PM DRILLER MACHINE): Due to insulin overdose (accidental) - continue to monitor as above and treat as needed per hypoglycemia protocol Assessment & Plan (11/22/2019 10:08 PM DRILLER MACHINE): Due to insulin overdose (accidental) - continue to monitor as above and treat as needed per hypoglycemia protocol Cellulitis of leg, right 11/22/2019 Assessment & Plan (11/23/2019 5:30 PM DRILLER MACHINE): Was seen by dermatology on 11/08/2019 at which time culture was performed. Patient has culture results which are positive for proteus mirabilis sensitive to ampicillin. She was prescribed ampicillin 500mg BID for 30 days per patient. - Continue ampicillin 500mg BID while inpatient Assessment & Plan (11/22/2019 10:49 PM DRILLER MACHINE): Was seen by dermatology on 11/08/2019 at [...] and renal adjusted dry weight. S/p HD 10/ and tolerated. 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 90-day Dexcom GMI 7.6%, above goal. Lab Results Component Value Date HGBA1C 6.8 02/22/2022 Per [place] [employer], goal A1c is less 7% [...] etc. Assessment & Plan (08/26/2019 7:42 AM DRILLER MACHINE): No longer requires insulin therapy now that [...] 10/2019. Had a catheter for HD in [facility]. Initially managed with eliquis but transitioned [...] 06/26/2019 Assessment & Plan (11/23/2019 5:30 PM DRILLER MACHINE): Continue allopurinol Assessment & Plan (11/22/2019 10:03 PM DRILLER MACHINE): Continue allopurinol Assessment & Plan (07/16/2019 9:40 [...] safety. Assessment & Plan (11/15/2024 9:09 PM DRILLER MACHINE): Managed by renal, need to minimize risk [...] hypoglycemia. Assessment & Plan (10/20/2022 10:20 AM DRILLER MACHINE): Need to minimize risk of hypoglycemia. Assessment [...] hypoglycemia Assessment & Plan (11/23/2019 5:30 PM DRILLER MACHINE): HD MWF Access: Last HD: 11/20 (mon). She had rescheduled her outpatient HD for today (Thursday 11/23 at 10:30am) - consult renal given elevating blood sugars, will need regimen going forward with current infection. Assessment & Plan (11/23/2019 5:20 PM DRILLER MACHINE): HD MWF Access: Last HD: 11/20 (mon). She had rescheduled her outpatient HD for today (Thursday 11/23 at 10:30am) - consult renal given elevating blood sugars, will need regimen going forward with current infection. Assessment & Plan (08/26/2019 7:43 AM DRILLER MACHINE): No longer requires insulin therapy. Assessment & [...] 01/09/2019 Assessment & Plan (11/23/2019 5:30 PM DRILLER MACHINE): Continue phos binder - phos 4.9, prior to dialysis. - patient reports previously low and discontinued sevelamer Assessment & Plan (11/23/2019 5:23 PM DRILLER MACHINE): Continue phos binder - phos 4.9, prior to dialysis. - patient reports previously low and discontinued sevelamer Anemia of chronic renal failure 06/01/2018 Assessment & Plan (11/23/2019 5:29 PM DRILLER MACHINE): Usually received darbopoietin on Fridays with HD. - CBC stable. Assessment & Plan (11/23/2019 5:18 PM DRILLER MACHINE): Usually received darbopoietin on Fridays with HD. [...] Component Value Date HGBA1C 6.8 02/22/2022 Per [place] [employer], goal A1c is less 7% [...] etc. Assessment & Plan (11/15/2024 9:10 PM DRILLER MACHINE): Overall glycemic control is within a reasonable range of control and safety. A1c 6.6% Assessment & Plan (05/12/2024 2:26 PM CDT): Glucoses a little high, but need to minimize risk of hypoglycemia. Assessment & Plan (02/08/2024 8:39 PM CDT): Glucoses very high after meals. Needs adjustments in basal and mealtime insulins. Assessment & Plan (10/26/2023 9:15 AM DRILLER MACHINE): Pt ed. Stressed BG control (HbA1C<7) to [...] diabetes. Assessment & Plan (10/22/2022 12:48 PM DRILLER MACHINE): Awaiting Hemoglobin A1c result; Dexcom report average [...] and she has also met with a parachute mender. Assessment & Plan (02/23/2022 10:29 AM CDT): Hemoglobin A1c decreased to 6.8%, with minimal hypoglycemia. Continue using Dexcom for continuous monitoring and low BG alarms. She is taking Lantus PM daily, consistently. She is taking Humalog with meals and using sliding scale. She plans to continue making diet changes to help lower BG. Assessment & Plan (11/18/2021 12:55 PM DRILLER MACHINE): Needs adjustments in insulins, particularly with variable [...] hypoglycemia. Assessment & Plan (10/27/2020 9:01 AM DRILLER MACHINE): No retinopath; pt ed BG control -annual [...] today Assessment & Plan (11/15/2024 9:09 PM DRILLER MACHINE): Continue supplement, monitored by renal Assessment & [...] renal Assessment & Plan (11/18/2021 12:52 PM DRILLER MACHINE): Continue supplement, monitored by renal Assessment & Plan (03/17/2021 2:38 PM CDT): Continue supplement, monitored by renal Assessment & Plan (03/06/2020 10:42 AM CDT): Continue supplement, monitored by renal Assessment & Plan (06/15/2018 7:52 AM CDT): On daily supplement, chronic renal insufficiency Pes planus 10/18/2012 JASON on CPAP 10/18/2012 Assessment & Plan (11/23/2019 5:30 PM DRILLER MACHINE): Continue CPAP with sleep. - CPAP ordered Assessment & Plan (11/22/2019 10:09 PM DRILLER MACHINE): Continue CPAP with sleep. - CPAP ordered [...] mask/CPAP. Sleeping well. 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 Assessment & Plan (07/27/2019 11:17 AM CDT): JASON w/ cpap at night, setting 11cmHg. Compliant with nightly mask/CPAP. Sleeping well. Defer to PCP for jail weight management, with morbid obesity (BMI 60) playing a role. Assessment & Plan (07/26/2019 11:43 AM CDT): JASON w/ cpap at night, setting 11cmHg. Compliant with nightly mask. Sleeping well. Defer to PCP for jail weight management, with morbid obesity (BMI 60) playing a role. Assessment & Plan (07/25/2019 11:19 AM CDT): JASON w/ cpap at night, setting 11cmHg. Compliant with nightly mask. Defer to PCP for jail weight management, with morbid obesity (BMI 60) [...] QHS Assessment & Plan (11/23/2019 5:30 PM DRILLER MACHINE): Continue Cymbalta and gabapentin Assessment & Plan (11/22/2019 10:12 PM DRILLER MACHINE): Continue Cymbalta and gabapentin Assessment & Plan (08/26/2019 7:43 AM DRILLER MACHINE): Clinically stable at this time Assessment & [...] panel Assessment & Plan (11/15/2024 9:09 PM DRILLER MACHINE): Continue statin, optimize glycemic control. Assessment & [...] dialysis. Assessment & Plan (10/20/2022 10:17 AM DRILLER MACHINE): She is taking ezetimibe 10mg, no longer [...] bleed. Assessment & Plan (11/23/2019 5:29 PM DRILLER MACHINE): Continue home losartan - routine vitals Assessment & Plan (11/23/2019 5:26 PM DRILLER MACHINE): Continue home losartan - routine vitals Assessment [...] 020 Assessment & Plan (11/23/2019 5:30 PM DRILLER MACHINE): Off insulin since Aug 2019 due to [...] PCP. Assessment & Plan (11/23/2019 5:25 PM DRILLER MACHINE): Off insulin since Aug 2019 due to [...] line 04/23, plan for outpatient dialysis at [facility] - 120mg IV Lasix BID->bumex - Continue [...] Description 05/16/2025 9:00 AM CDT Clinical Support [facility] Endocrinology Metabolism and Lipid [address] [facility] 13th [place] [address] [place] [address] Shelia Robbins RN Type 2 diabetes mellitus with complication, with long-term current use of insulin (HCC) (Primary Dx); Corns and callosities 05/16/2025 8:00 AM CDT Clinical Support [facility] Endocrinology Metabolism [facility] Lipid [address] [place] [address] [place] [id number] [address] Type 2 diabetes mellitus with complication, with long-term current use of insulin (HCC) (Primary Dx) 05/16/2025 Orders Only [facility] Endocrinology Metabolism and Lipid [address] [facility] 13th [place] [address] [place] [address] Catherine Cain PA Type 2 diabetes mellitus with complication, with long-term current use of insulin (HCC) (Primary Dx) 05/16/2025 Telephone [facility] Endocrinology Metabolism and Lipid [address] [facility] 5th [place] [address] [place] [address] Maria Dolores Tabares RN 05/15/2025 12:00 PM CDT Telemedicine [facility] Endocrinology Metabolism and Lipid [address] [facility] 13th [place] [address] [place] [address] Chelle Espinoza MD Type 2 diabetes mellitus with complication, with long-term current use of insulin (HCC) (Primary Dx); Mixed hyperlipidemia; ESRD (end stage renal disease) on dialysis (HCC); Vitamin D deficiency 05/15/2025 Telephone [facility] Endocrinology Metabolism and Lipid [address] [facility] 5th [place] [address] [place] [address] Maria Dolores Tabares RN Prior Auth; ionaluis e 05/15/2025 Telephone [facility] Endocrinology Metabolism and Lipid [address] [facility] 5th [place] [address] [place] [address] Maria Dolores Tabares RN pain managment referral an CDE appt 05/02/2025 Telephone [facility] Surgery [address] [facility] Floor [address] [place] [address] Pj Toure MD 04/30/2025 Orders Only [facility] Endocrinology Metabolism and Lipid [address] [facility] 5th [place] [address] [place] [address] Marissa Castro MD 04/30/2025 Telephone [facility] Endocrinology Metabolism and Lipid [address] [facility] 5th [place] [address] [place] [address] Maria Dolores Tabares RN lab results [place] 04/22/2025 Telephone [facility] Surgery [address] [facility] 8th [place] [address] [place] [address] Pj Toure MD 04/22/2025 Telephone [facility] Surgery [address] [facility] Floor 1 [place] [address] Pj Toure MD 02/28/2025 Orders Only [facility] Endocrinology Metabolism and Lipid [address] [facility] 5th [place] [address] [place] [address] ProviderMarissa MD 02/28/2025 Telephone [facility] Endocrinology Metabolism and Lipid [address] [facility] 5th [place] [address] [place] [address] Maria Dolores Tabares, machine sneller Results from Last 3 Months Immunizations Immunization Administration Dates Next Due Influenza, Quadrivalent, Spl it, Preservative Free, Intramuscular 08/08/2019 Influenza, Trivalent, IM (MDV) 11/14/2015,2012 Influenza, Trivalent, Preser vative Free, Intramuscular 07/23/2012 Influenza, Unspecified 07/31/2023,07/31/2020 Darrius (J&J) SARS-CoV-2 Vaccination 08/01/2023 MMR 09/14/2015,08/14/2015 Pfizer SARS-CoV-2 Monovalent Vaccination (12+ Yrs) PURPLE 10/09/2021,03/03/2021,02/10/2021 Pneumococcal Polysaccharide PPV23 10/18/2020,10/2011,11/19/2010 Tdap 08/14/2015 Surgical History Surgery Date Site/Laterality Comments SC DELIVERY ONLY 10/23/1988 - 10/22/1989 Section - (Added by TW Conv) SC CHOLECYSTECTOMY 10/23/2013 - 10/22/2014 Cholecystectomy - 1993 (Added by TW Conv) COLONOSCOPY 10/23/2019 - 10/22/2020 Complete Colonoscopy - (Added by TW Conv) PARTIAL NEPHRECTOMY 10/23/2011 - 10/22/2012 Left Kidney Surgery Laparoscopic Partial Nephrectomy - left 02/14/2012 (Added by TW Conv) SC UNLISTED PROCEDURE DENTOALVEOLAR STRUCTURES Oral Surgery Tooth Extraction - (Added by TW Conv) TUNNELED LINE PLACEMENT > 5 YEARS 04/23/2019 N/A SC REPAIR FIRST ABDOMINAL WALL HERNIA 10/23/2015 - [...] on file Legal Sex Female 3:06 AM DRILLER MACHINE Gender Identity Not on file Sexual Orientation Not on file Obstetrics History Last Filed Vital Signs Vital Sign Reading Time Taken Comments Blood Pressure 115/62 02/12/2025 11:34 AM CDT automatic retake Pulse 75 02/12/2025 10:14 AM CDT Temperature 36.6 C (97.8 F) 02/12/2025 10:14 AM CDT Respiratory Rate 19 08/30/2024 3:00 PM DRILLER MACHINE Oxygen Saturation 92% 08/30/2024 3:0 0 PM DRILLER MACHINE Inhaled Oxygen Concentration - - Weight 146.3 [...] exists Well Visit 65+ 2023 Covid-19 Vaccine (2023-2 5 season) 2024 08/01/2023, 10/09/2021, 03/03/2021, Additional [...] Plan Chronic Care Management Improving( 8:56 AM DRILLER MACHINE) Ana Paula Hoff, RN Note: Problem: Chronic Pain Goals: 1. Minimize further functional decline 2. Maximize quality of life 3. Control pain Strategies: - Activity/exercise program recommendation - Conservative stepwise pain medicine strategy with multi-disciplinary approach - Recommend healthy lifestyle strategies and compensatory methods as needed Medical Devices Implanted Type Area Wing Scorer Device Identifier Shelf Expiration Date Model / Serial / Lot [employer] [id number] 4-7mm 45cm 10cm Removable Ring Line Standard Casino Cage Supervisor Graft - [id number] - [id number] Implanted:Qty: 1 on 05/28/2019 by Pj Toure MD at [facility] Other - see comments Left: Arm Wl [employer] [id number] 03/31/2024 [id number] / [id number] / Description:Left AV Graft Wl [employer] Viabahn 7mm 5cm 120cm Delivery System Superficial Femoral Artery [id number] - [id number] - [id number] Implanted:Qty: 1 on 08/30/2024 by Pj Toure MD at [facility] Stent Left: Arm Wl [employer] [id number] 03/26/2027 [id number] / [id number] / Procedures Procedure Name Priority Date/Time Associated [...] CDT PHOSPHORUS Routine 02/20/2025 4:07 PM CDT SCREENING MAMMOGRAM BILATERAL W KODAK Schedule Routine, Read Routine (OP Routine) 12/14/2023 11:02 AM DRILLER MACHINE Screening mammogram, encounter for POCT HEMOGLOBIN A1C Routine 02/22/2022 1 0:26 AM CDT Type 2 diabetes mellitus with complication, with long-term current use of insulin (HCC) EGFR STAT 08/30/2021 9:53 PM DRILLER MACHINE HEPATITIS PANEL, ACUTE STAT 11/14/2020 10:19 AM DRILLER MACHINE COLONOSCOPY 06/04/2020 4:03 PM CDT LIPID PANEL STAT 06/03/2020 2:56 AM CDT from Last 3 Months or Most Recently Relevant to Health Maintenance Results * Glucose (04/01/2025 8:52 AM CDT) Historical Provider MD LAB BLOOD ORDERABLES Karlee l Result Performing Organization Address [facility] de Phone Number EXTERNAL LAB * CALCIUM (04/01/2025 8:52 AM CDT) Historical Provider MD LAB BLOOD ORDERABLES Karlee l Result Performing Organization Address [facility] de Phone Number EXTERNAL LAB * Vitamin D, 25-Hydroxy, Total (04/01/2025 8:52 AM CDT) [facility] Provider MD LAB BLOOD ORDERABLES Karlee l Result Performing Organization Address [facility] de Phone Number EXTERNAL LAB * A1C (manual) (04/01/2025 8:52 AM CDT) Historical Provider MD LAB BLOOD ORDERABLES Karlee l Result Performing Organization Address [facility] de Phone Number EXTERNAL LAB * Iron profile w/ IBC (04/01/2025 8:52 AM CDT) Blood Historical Provider MD LAB BLOOD ORDERABLES Karlee l Result Performing Organization Address [facility] de Phone Number EXTERNAL LAB * CBC without differential (04/01/2025 8:52 AM CDT) Blood [facility] Provider MD LAB BLOOD ORDERABLES Karlee l Result Performing Organization Address City/[facility]/ZIP Co de Phone Number EXTERNAL LAB * Phosphorus (04/01/2025 8:52 AM CDT) Blood Result [facility] Provider MD LAB BLOOD ORDERABLES Karlee l Result Performing Organization Address City/[facility] Co de Phone Number EXTERNAL LAB * PTH (04/01/2025 8:52 AM CDT) Blood Result [facility] Provider MD LAB BLOOD ORDERABLES Karlee l Result Performing Organization Address City/[facility] de Phone Number EXTERNAL LAB * Albumin (04/01/2025 8:52 AM CDT) Blood Result [facility] Provider MD LAB BLOOD ORDERABLES Karlee l Result Performing Organization Address City/[facility] de Phone Number EXTERNAL LAB * CALCIUM (02/20/2025 4:07 PM CDT) Result [facility] Provider MD LAB BLOOD ORDERABLES Karlee l Result Performing Organization Address City/[facility] de Phone Number EXTERNAL LAB * Potassium, Serum (02/20/2025 4:07 PM CDT) Result [facility] Provider MD LAB BLOOD ORDERABLES Karlee l Result Performing Organization Address City/[facility] Co de Phone Number EXTERNAL LAB * Phosphorus (02/20/2025 4:07 PM CDT) Blood Result [facility] Provider MD LAB BLOOD ORDERABLES Karlee l Result Performing Organization Address City/[facility] Co de Phone Number EXTERNAL LAB * PTH (02/20/2025 4:07 PM CDT) Blood us Historical Provider MD LAB BLOOD ORDERABLES Karlee l Result EXTERNAL LAB * Albumin (02/20/2025 4:07 PM CDT) Blood Historical Provider LAB BLOOD ORDERABLES Karlee l Result Performing Organization Address City/[facility]/ZIP Co de Phone Number EXTERNAL LAB * Screening Mammogram Bilateral W [employer]ak (12/14/2023 11:02 AM DRILLER MACHINE) Anatomical Region Laterality Modality Breast Bilateral Mammography Narrative 12/14/2023 11:28 AM DRILLER MACHINE Mammogram Technique: Bilateral Digital Breast Tomosynthesis, Bilateral C-view 2D Screening mammogram. Views obtained: bilateral craniocaudal and bilateral mediolateral oblique. Computer Aided Detection was performed. Mammogram Findings: The present examination has been compared to prior imaging studies performed at [facility] on 06/22/2015, 12/16/2021 and 12/06/2022. There are [...] compared to prior imaging studies performed at [facility] on 06/22/2015, 12/16/2021 and 12/06/2022. There are scattered areas of fibroglandular density. There are calcifications in both breasts. Impression: Calcifications in both breasts are benign. Annual screening mammography is recommended. OVERALL FINAL ASSESSMENT: BI-RADS CATEGORY 2: Benign. us Self Referral IMG MAMMO PROCEDURES Final Resul t * (ABNORMAL) POCT hemoglobin A1c (02/22/2022 10:26 AM CDT) Pathologist [facility] Hemoglobin A1C, POC 6.8 Blood specimen (specimen) 02/22/2022 10:26 AM CDT Krista SEVERINO POINT OF CARE TEST ORDArabella RODRIGUEZ Final Result * (ABNORMAL) eGFR (08/30/2021 9:53 PM DRILLER MACHINE) Pathologist [facility] eGFR 7(L) 90 - 130 mL/min/1.7 3 m2 [facility] Comment: Interpretive Data Reference Interval Normal [...] last reviewed 2020 Blood 08/30/2021 9:53 PM DRILLER MACHINE 08/31/2021 1:30 AM DRILLER MACHINE Slava Lowe MD LAB BLOOD ORDERABLES Karlee mike Result [facility] Department [place] [address] * Hepatitis panel, acute (11/14/2020 10:19 AM DRILLER MACHINE) Pathologist [facility] Hep A IgM Nonreactive Nonreactive [facility] Comment: Interpretive Data: If Hep A IgM Ab is reported as Equivocal, a new sample should be drawn in two weeks for testing. Current interpretive data was last revised on 20. Hep B core IgM Nonreactive Nonreactive [facility] Comment: Interpretive Data If HepB Core IgM Ab is reported as Equivocal, a new sample should be drawn in two weeks for testing. Current interpretive data was last revised on 20. Hep C Ab Nonreactive Nonreactive [facility] Comment: Interpretive Data Nonreactive: Antibodies to [...] last revised on 2020. HepBsAg Nonreactive Nonreactive [facility] Blood specimen (specimen) 11/14/2020 10:19 AM DRILLER MACHINE 11/14/2020 10:19 AM DRILLER MACHINE us Pierce Clark MD LAB MICROBIOLOGY - GENERAL ORDERABLES Final Result [facility] [address] Department [place] [address] * COLONOSCOPY (06/04/2020 4:03 PM CDT) Anatomical Region Laterality Modality Other Narrative Procedure Note Cruzito Benitez MD - 06/04/2020 4:03 PM CDT [facility] Patient Name: Fani Horton Procedure Date: 06/04/2020 4:03 PM Date of : 1960 Admit Type: Inpatient Age: 60 Gender: Female Attending MD: Cruzito Simms M.D. Room: [facility] OR POD 5 ROOM 224 Note Status: [...] The scope was passed under direct vision.The [id number] Endoscope was introduced throughthe anus and advanced to the cecum, identified by appendiceal orifice and ileocecal valve. The colonoscopy was performed without difficulty. The patient tolerated the procedure well. The quality of the bowel preparation was evaluated using the BBPS ([place] Bowel Preparation Scale) with scores of:Right Colon [...] On: 06/04/2020 4:03 PM Recognized by the Citizen Of [place] [employer] for promoting quality in endoscopy Cruzito Simms MD ENDOSCOPY PROCEDURES Final Result * Lipid panel (06/03/2020 2:56 AM CDT) Cholesterol 163 30 - 199 mg/dL [facility] Comment: Interpretive Data Ages < or = [...] on 2018. Triglycerides 125 <=149 mg/dL [facility] Comment: Interpretive Data Ages < or = [...] revised on 2018. HDL 67 >=40 mg/dL [facility] Comment: Interpretive Data Ages < or = [...] on 2018. LDL, calculated 71 <=129 mg/dL [facility] Comment: Interpretive Data Ages < or = [...] on 2018. Non-HDL Cholesterol 96 mg/dL ELISEO [facility] Comment: Interpretive Data Ages [...] Mayen MD LAB BLOOD ORDERABLES Final Result [facility] Department [place] [address] from Last 3 Months or Most Recently Relevant to Health Maintenance Insurance MEDICARE [facility] [place] [facility] [employer] MEDICARE SUPPLEMENT INSURANCE CHO[place] Member Subscriber Plan / Payer (Ef fective 2019-Present) Name:Fani Horton Relation to Subscriber:Self Name:Clifford Fani M Payer ID:[id number] (NAIC) Type:HEALTHCARE/EXCHANGE Address: [id number] [place] [address] [place] [phone] MEDICARE [employer] Advance Directives For more information, please contact: [phone] Documents on File Type Date Recorded Patient Load Builder Expl anation ADVANCE DIRECTIVE 05/31/2019 5:52 AM POWER OF ASSEMBLER CATERPILLAR SPIDER-MEDICAL ADVANCE DIRECTIVE 04/30/2019 7:33 PM POWER OF ASSEMBLER CATERPILLAR SPIDER-MEDICAL ADVANCE DIRECTIVE 04/24/2019 2:54 PM POWER OF ASSEMBLER CATERPILLAR SPIDER-MEDICAL * Full Code (Latest Code Status on [...] 6:22 PM 06/04/2020 2:56 PM Care Teams Student Specialist Relationship Specialty Start Date End Date Marguerite Fuchs MD PCP - General Family Practice 10/27/20 Chelle Espinoza MD Referring Physician Endocrinology Diabetes & Metabolism 03/06/20 Aft, Cesilia Allen MD PhD Surgeon Surgical Oncology 11/18/21 [place] [id number] [address] Consulting Physician Nephrology 05/12/24 Catherine Cain PA [address] [facility] ENDOCR[facility]OLOG[facility], [address] [address] Physician Digital Cartographer Physician Digital Cartographer 05/17/25
--- OUTSIDE RECORDS SUMMARY | 2025-05-23 11:40 | XMS_ITS ---
Author Organization 1 OF [facility] Address [address] [address] Care Team Providers Care Account Coordinator Name Role Phone Marguerite Fuchs Primary Care Provider Un available Gutierrez Olivarez Unavailable [phone] REASON FOR VISIT DFC (Diabetic foot care) Encounters Encounter Location Date Provider Diagnosis 1 [facility] [address] [facility] [address] [place] [address] 04/02/2024 Gutierrez Olivarez Plan Of Treatment No Information Progress Notes * Fani HORTON MDOB: (65 yo F)Acc No.[id number]:04/02/2024 Progress Note Patient: Kya KERN Fani Moya Provider: Lupe Olivarez DPM :1960 A ge:64 Y S ex:Female Date:04/02/2024 Address:[address] [place], [place] [id number] Pcp:Marguerite Fuchs Subjective: * Chief Complaints: * 1 . DFC (Diabetic foot care). * Medical History: Objective: * Vitals: Assessment: Plan: * Treatment: * Images: * Electronic signature of Gutierrez Olivarez DPM on 05/23/2025 at 11:40 AM CDT Sign off status: Pending * Provider: Lupe Olivarez DPM Date: 0 04/02/2024 Generated for Printi ng/Fajenniferg/eTransmitting on: 0 05/23/2025 11:40 AM CDT
--- OUTSIDE RECORDS SUMMARY | 2025-05-23 11:40 | XMS_ITS | Encounter Summary ---
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 Author CCM Chronic Pain Care Plan Chronic Care Management Improving( 8:56 AM REIMBURSEMENT MANAGER) No Ana Paula Talley RN Note: Problem: [...] on filedocumented in this encounter Care Teams Oracle Soa Consultant Relationship Specialty Start Date End Date Marguerite Fuchs MD PCP - General Family Practice 10/27/20 Chelle Espinoza MD Referring Physician Endocrinology Diabetes & Metabolism 03/06/20 Cesilia Aguilar MD PhD Surgeon Surgical Oncology 11/18/21 [place] [id number] [facility] [address] [place] [address] Consulting Physician Nephrology 05/12/24 Catherine Cain PA [address] [facility], [facility] [address] [place] [address] Physician Camera Engineer Physician Camera Engineer 05/17/25 documented as of this encounter
--- OUTSIDE RECORDS SUMMARY | 2025-05-23 11:40 | XMS_ITS | Referral Summary ---
Author Organization [facility] Address [address] [place] [address] Care Team Providers [facility] Psychiatrist Name Role Phone Chelle Espinoza MD Unavailable Marguerite Fuchs MD Primary Care Provider Aft, Cesilia Allen MD PhD Unavailable Peter Joe MD Unavailable Catherine Cain Unavailable Encounters Date Type Department Care Team Description 05/16/2025 Orders Only [facility] Endocrinology Metabolism and Lipid [address] [facility] [address] [place] [address] [place] [phone] aCtherine Cain PA Type 2 diabetes mellitus with complication, with long-term current use of insulin (HCC) (Primary Dx) 05/16/2025 Telephone [facility] Endocrinology Metabolism and Lipid [address] [facility] 5th [place] [address] [place] [address] Maria Dolores Tabares RN 05/16/2025 8:00 AM CDT Clinical Support [facility] Endocrinology Metabolism and Lipid [address] [facility] [address] [place] [address] [place] [address] Type 2 diabetes mellitus with complication, with long-term current use of insulin (HCC) (Primary Dx) 05/16/2025 9:00 AM CDT Clinical Support [facility] Endocrinology Metabolism and Lipid [address] [facility] [address] [place] [address] [place] [address] Shelia Robbins RN Type 2 diabetes mellitus with complication, with long-term current use of insulin (HCC) (Primary Dx); Corns and callosities 05/15/2025 Telephone [facility] Endocrinology Metabolism and Lipid [address] [facility] [address] [place] [address] [place] [address] Maria Dolores Tabares RN Prior Auth; [email or web address] 05/15/2025 Telephone [facility] Endocrinology Metabolism and Lipid [address] [facility] [address] [place] [address] [place] [address] Maria Dolores Tabares RN pain managment referral an CDE appt 05/15/2025 12:00 PM CDT Telemedicine [facility] Endocrinology Metabolism and Lipid [address] [facility] [address] [place] [address] [place] [address] Chelle Espinoza MD Type 2 diabetes mellitus with complication, with long-term current use of insulin (HCC) (Primary Dx); Mixed hyperlipidemia; ESRD (end stage renal disease) on dialysis (HCC); Vitamin D deficiency 05/02/2025 Telephone [facility] Surgery [address] [place] [address] Pj Toure MD 04/30/2025 Orders Only [facility] Endocrinology Metabolism and Lipid [address] [facility] 5[address] [place] [address] [place] [address] Marissa Castro MD 04/30/2025 Telephone [facility] Endocrinology Metabolism and Lipid [address] [facility] 5[address] [place] [address] [place] [address] Maria Dolores Tabares RN lab results [place] 04/22/2025 Telephone [facility] Surgery [address] [facility] [address] [place] [address] [place] [address] Pj Toure MD 04/22/2025 Telephone [facility] Surgery [address] [place] [phone] Pj Toure MD 02/28/2025 Orders Only [facility] Endocrinology Metabolism and Lipid [address] [facility] 5th [place] [address] [place] [phone] Marissa Castro MD 02/28/2025 Telephone [facility] Endocrinology Metabolism and Lipid [address] [facility] 5[address] [place] [address] [place] [address] Maria Dolores Tabares, automotive technician Results from Last 3 Months Allergies Active Allergy [...] complication, with long-term current use of insulin ([facility]) Use with insulin injections 4 times daily 400 each 3 07/07/20 22 Active paricalcitoL (ZEMPLAR) 2 mcg capsuleIndications:H yperparathyroidism Secondary to Chronic Renal Failure Take 1 capsule (2 mcg total) by mouth 3 (three) times a week Take with dialysis Mon, Mon, Mon07/04/20 22 Active ferric citrate (Auryxia) 210 [...] complication, with long-term current use of insulin ([facility]),Class 3 severe obesity due to excess calories with serious comorbidity and body mass index (BMI) of 60.0 to 69.9 in adult Inject 0.5 mL (2.5 mg total) under the skin every 7 days 6 mL 02/13/20 Active insulin glargine (TOUJEO) 300 unit/mL (1.5 mL) pen for injectionIndications :Type 2 diabetes mellitus with complication, with long-term current use of insulin ([facility]) Inject 44 units under the skin daily. 42 mL 02/13/20 25 Active glucagon (BAQSIMI) 3 mg/actuation spray,non-aerosolInd ications:Type 2 diabetes mellitus with complication, with long-term current use of insulin ([facility]) Administer 1 spray into one nostril as needed (severe hypoglycemia) 2 each 3 02/13/20 Active pregabalin (LYRICA) 50 mg capsuleIndications:n erve pain Take 1 capsule (50 mg total) by mouth nightly TAKE 1 CAPSULE BY MOUTH ONCE DAILY TAKE ADDITIONAL DOSE AFTER DIALYSIS ON MONDAY, AND MONDAY 120 capsule 2 05/16/20 25 025 Active insulin lispro-aabc (LYUMJEV) 100 unit/mL pen for injectionIndications :Type 2 diabetes mellitus with complication, with long-term current use of insulin ([facility]) Inject 24-29 units with breakfast, 38-32 units with lunch and dinner and 5 units with snacks. Max TDD 110 units daily 99 mL 05/20/20 25 Active pregabalin (LYRICA) 50 mg [...] complication, with long-term current use of insulin ([facility]) Inject 24-29 units with breakfast, 38-32 units [...] 02/10/2021 Assessment & Plan (11/11/2021 12:12 PM SQL REPORT WRITER): Pfizer vaccine 10/09/2021, 03/03/2021, 02/10/2021 Abnormal findings [...] Monitor. Assessment & Plan (10/26/2023 9:15 AM SQL REPORT WRITER): Defer cataract surgery until signs and symptoms indicate. Pt was educated on the diagnosis. Recommend daily UV eye protection. Assessment & Plan (10/27/2020 9:01 AM SQL REPORT WRITER): Not yet Visually significant; defer cataract extraction [...] rescue Assessment & Plan (11/23/2019 5:30 PM SQL REPORT WRITER): Due to insulin overdose (accidental) - continue to monitor as above and treat as needed per hypoglycemia protocol Assessment & Plan (11/22/2019 10:08 PM SQL REPORT WRITER): Due to insulin overdose (accidental) - continue to monitor as above and treat as needed per hypoglycemia protocol Cellulitis of leg, right 11/22/2019 Assessment & Plan (11/23/2019 5:30 PM SQL REPORT WRITER): Was seen by dermatology on 11/08/2019 at which time culture was performed. Patient has culture results which are positive for proteus mirabilis sensitive to ampicillin. She was prescribed ampicillin 500mg BID for 30 days per patient. 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 90-day Dexcom GMI 7.6%, above goal. Lab Results Component Value Date HGBA1C 6.8 02/22/2022 Per [place] [employer], goal A1c is less 7% [...] etc. Assessment & Plan (08/26/2019 7:42 AM SQL REPORT WRITER): No longer requires insulin therapy now that [...] 10/2019. Had a catheter for HD in [facility]. Initially managed with eliquis but transitioned [...] 06/26/2019 Assessment & Plan (11/23/2019 5:30 PM SQL REPORT WRITER): Continue allopurinol Assessment & Plan (11/22/2019 10:03 PM SQL REPORT WRITER): Continue allopurinol Assessment & Plan (07/16/2019 9:40 [...] safety. Assessment & Plan (11/15/2024 9:09 PM SQL REPORT WRITER): Managed by renal, need to minimize risk [...] hypoglycemia. Assessment & Plan (10/20/2022 10:20 AM SQL REPORT WRITER): Need to minimize risk of hypoglycemia. Assessment [...] hypoglycemia Assessment & Plan (11/23/2019 5:30 PM SQL REPORT WRITER): HD MWF Access: Last HD: 11/20 (mon). She had rescheduled her outpatient HD for today (Thursday 11/23 at 10:30am) - consult renal given elevating blood sugars, will need regimen going forward with current infection. Assessment & Plan (11/23/2019 5:20 PM SQL REPORT WRITER): HD MWF Access: Last HD: 11/20 (mon). She had rescheduled her outpatient HD for today (Thursday 11/23 at 10:30am) - consult renal given elevating blood sugars, will need regimen going forward with current infection. Assessment & Plan (08/26/2019 7:43 AM SQL REPORT WRITER): No longer requires insulin therapy. Assessment & [...] bilateral knee pain. Patient discharge with home [place] which [facility] not been [facility]. Continue lidocaine [...] bilateral knee pain. Patient discharge with [place] [facility] which has not been initiated. Continue lidocaine [...] bilateral knee pain. Patient discharge with home [facility] which [facility] not been initiated. Continue lidocaine patch bilateral knees, oral prn tylenol and diclofenac dose increased to 4gm with improvement. Encouraged patient to use medications to improve mobility with therapy and agreeable. PT/OT for debilitation. Await SNF, insurance approval still pending. Assessment & Plan (07/25/2019 11:17 AM CDT): Recent admission 07/10-07/19 for OA bilateral knee pain. Patient discharge with home [facility] which has not been initiated. Continue lidocaine patch bilateral knees, oral prn tylenol and diclofenac dose increased to 4gm with improvement. Encouraged patient to use medications to improve mobility with therapy and agreeable. PT/OT for debilitation. Await SNF Assessment & Plan (07/24/2019 2:04 PM CDT): Recent admission 07/10-07/19 for bilateral knee pain. Patient discharge with home [facility] which has not been initiated. -continue lidocaine patch bilateral knees -continue prn tylenol and diclofenac PT/OT for debilitation. Assessment & Plan (07/23/2019 1:55 PM CDT): Recent admission 07/10-07/19 for bilateral knee pain. Patient discharge with home [facility] which [facility] not been initiated. -continue lidocaine patch bilateral knees -continue prn tylenol and diclofenac Assessment & Plan (07/22/2019 6:15 PM CDT): Recent admission 07/10-07/19 for bilateral knee pain. Patient discharge with home [facility] which has not been initiated. -continue lidocaine [...] 01/09/2019 Assessment & Plan (11/23/2019 5:30 PM SQL REPORT WRITER): Continue phos binder - phos 4.9, prior to dialysis. - patient reports previously low and discontinued sevelamer Assessment & Plan (11/23/2019 5:23 PM SQL REPORT WRITER): Continue phos binder - phos 4.9, prior to dialysis. - patient reports previously low and discontinued sevelamer Anemia of chronic renal failure 06/01/2018 Assessment & Plan (11/23/2019 5:29 PM SQL REPORT WRITER): Usually received darbopoietin on Fridays with HD. - CBC stable. Assessment & Plan (11/23/2019 5:18 PM SQL REPORT WRITER): Usually received darbopoietin on Fridays with HD. [...] Component Value Date HGBA1C 6.8 02/22/2022 Per [place] [employer], goal A1c is less 7% [...] that I am available via phone or [employer] if they have any concerns for hypo/hyperglycemia, medication refills, etc. Assessment & Plan (11/15/2024 9:10 PM SQL REPORT WRITER): Overall glycemic control is within a reasonable range of control and safety. A1c 6.6% Assessment & Plan (05/12/2024 2:26 PM CDT): Glucoses a little high, but need to minimize risk of hypoglycemia. Assessment & Plan (02/08/2024 8:39 PM CDT): Glucoses very high after meals. Needs adjustments in basal and mealtime insulins. Assessment & Plan (10/26/2023 9:15 AM SQL REPORT WRITER): Pt ed. Stressed BG control (HbA1C<7) to [...] diabetes. Assessment & Plan (10/22/2022 12:48 PM SQL REPORT WRITER): Awaiting Hemoglobin A1c result; Dexcom report average [...] and she has also met with a ceramic products sales engineer. Assessment & Plan (02/23/2022 10:29 AM CDT): Hemoglobin A1c decreased to 6.8%, with minimal hypoglycemia. Continue using Dexcom for continuous monitoring and low BG alarms. She is taking Lantus PM daily, consistently. She is taking Humalog with meals and using sliding scale. She plans to continue making diet changes to help lower BG. Assessment & Plan (11/18/2021 12:55 PM SQL REPORT WRITER): Needs adjustments in insulins, particularly with variable [...] hypoglycemia. Assessment & Plan (10/27/2020 9:01 AM SQL REPORT WRITER): No retinopath; pt ed BG control -annual [...] today Assessment & Plan (11/15/2024 9:09 PM SQL REPORT WRITER): Continue supplement, monitored by renal Assessment & [...] renal Assessment & Plan (11/18/2021 12:52 PM SQL REPORT WRITER): Continue supplement, monitored by renal Assessment & Plan (03/17/2021 2:38 PM CDT): Continue supplement, monitored by renal Assessment & Plan (03/06/2020 10:42 AM CDT): Continue supplement, monitored by renal Assessment & Plan (06/15/2018 7:52 AM CDT): On daily supplement, chronic renal insufficiency Pes planus 10/18/2012 JASON on CPAP 10/18/2012 Assessment & Plan (11/23/2019 5:30 PM SQL REPORT WRITER): Continue CPAP with sleep. - CPAP ordered Assessment & Plan (11/22/2019 10:09 PM SQL REPORT WRITER): Continue CPAP with sleep. - CPAP ordered [...] mask/CPAP. Sleeping well. 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 Assessment & Plan (07/27/2019 11:17 AM CDT): JASON w/ cpap at night, setting 11cmHg. Compliant with nightly mask/CPAP. Sleeping well. Defer to PCP for assisted weight management, with morbid obesity (BMI 60) playing a role. Assessment & Plan (07/26/2019 11:43 AM CDT): JASON w/ cpap at night, setting 11cmHg. Compliant with nightly mask. Sleeping well. 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 Assessment & Plan (07/25/2019 11:19 AM CDT): JASON w/ cpap at night, setting 11cmHg. Compliant with nightly mask. Defer to PCP for assisted weight management, with morbid obesity (BMI 60) [...] QHS Assessment & Plan (11/23/2019 5:30 PM SQL REPORT WRITER): Continue Cymbalta and gabapentin Assessment & Plan (11/22/2019 10:12 PM SQL REPORT WRITER): Continue Cymbalta and gabapentin Assessment & Plan (08/26/2019 7:43 AM SQL REPORT WRITER): Clinically stable at this time Assessment & [...] panel Assessment & Plan (11/15/2024 9:09 PM SQL REPORT WRITER): Continue statin, optimize glycemic control. Assessment & [...] dialysis. Assessment & Plan (10/20/2022 10:17 AM SQL REPORT WRITER): She is taking ezetimibe 10mg, no longer [...] bleed. Assessment & Plan (11/23/2019 5:29 PM SQL REPORT WRITER): Continue home losartan - routine vitals Assessment & Plan (11/23/2019 5:26 PM SQL REPORT WRITER): Continue home losartan - routine vitals Assessment [...] 020 Assessment & Plan (11/23/2019 5:30 PM SQL REPORT WRITER): Off insulin since Aug 2019 due to [...] PCP. Assessment & Plan (11/23/2019 5:25 PM SQL REPORT WRITER): Off insulin since Aug 2019 due to [...] line 04/23, plan for outpatient dialysis at [facility] - 120mg IV Lasix BID->bumex - [...] on file Legal Sex Female 3:06 AM SQL REPORT WRITER Gender Identity Not on file Sexual Orientation Not on file Last Filed Vital Signs Vital Sign Reading Time Taken Comments Blood Pressure 115/62 02/12/2025 11:34 AM CDT automatic retake Pulse 75 02/12/2025 10:14 AM CDT Temperature 36.6 C (97.8 F) 02/12/2025 10:14 AM CDT Respiratory Rate 19 08/30/2024 3:00 PM SQL REPORT WRITER Oxygen Saturation 92% 08/30/2024 3:0 0 PM SQL REPORT WRITER Inhaled Oxygen Concentration - - Weight 146.3 kg (322 lb 9.6 oz) 02/12/2025 10:14 AM CDT Height 152.4 cm (5') 02/12/2025 10:14 AM CDT Body Mass Index 63 02/12/2025 10:14 AM CDT Plan of Treatment Not on file Goals Goal Patient Goal Type Associated Problems Recent Progress Patient-Stated? Author CCM Chronic Pain Care Plan Chronic Care Management Improving( 8:56 AM SQL REPORT WRITER) Ana Paula Hoff, RN Note: Problem: Chronic Pain Goals: 1. Minimize further functional decline 2. Maximize quality of life 3. Control pain Strategies: - Activity/exercise program recommendation - Conservative stepwise pain medicine strategy with multi-disciplinary approach - Recommend healthy lifestyle strategies and compensatory methods as needed Medical Devices Implanted Type Area Chimney Builder Helper Device Identifier Shelf Expiration Date Model / Serial / Lot [employer]l [employer] [id number] 4-7mm 45cm 10cm Removable Ring Line Standard Sandblaster Paint Sprayer Graft - [id number] - [id number] Implanted:Qty: 1 on 05/28/2019 by Pj Toure MD at [facility] Other - see comments Left: Arm [employer] [id number] 03/31/2024 [id number] / [id number] / Description:Left AV Graft [employer] Viabahn 7mm 5cm 120cm Delivery System Superficial Femoral Artery [id number] - [id number] - [id number] Implanted:Qty: 1 on 08/30/2024 by Pj Toure MD at [facility] Stent Left: Arm W[employer] [id number] 03/26/2027 [id number] / [id number] / Procedures Procedure Name Priority Date/Time Associated [...] Read Routine (OP Routine) 12/14/2023 11:02 AM SQL REPORT WRITER Screening mammogram, encounter for POCT HEMOGLOBIN A1C Routine 02/22/2022 1 0:26 AM CDT Type 2 diabetes mellitus with complication, with long-term current use of insulin (HCC) EGFR STAT 08/30/2021 9:53 PM SQL REPORT WRITER HEPATITIS PANEL, ACUTE STAT 11/14/2020 10:19 AM SQL REPORT WRITER COLONOSCOPY 06/04/2020 4:03 PM CDT LIPID PANEL STAT 06/03/2020 2:56 AM CDT from Last 3 Months or Most Recently Relevant to Health Maintenance Results * Glucose (04/01/2025 8:52 AM CDT) us Historical Provider MD LAB BLOOD ORDERABLES Karlee l Result Performing Organization Address City/[facility]/ZIP Co de Phone Number EXTERNAL LAB * CALCIUM (04/01/2025 8:52 AM CDT) us Historical Provider LAB BLOOD ORDERABLES Karlee l Result EXTERNAL LAB * Vitamin D, 25-Hydroxy, Total (04/01/2025 8:52 AM CDT) us Historical Provider LAB BLOOD ORDERABLES Karlee l Result EXTERNAL LAB * A1C (manual) (04/01/2025 8:52 AM CDT) Historical Provider MD LAB BLOOD ORDERABLES Karlee l Result Performing Organization Address City/[facility] Co de Phone Number EXTERNAL LAB * Iron profile w/ IBC (04/01/2025 8:52 AM CDT) Blood Historical Provider MD LAB BLOOD ORDERABLES Karlee l Result Performing Organization Address City/[facility] Co de Phone Number EXTERNAL LAB * CBC without differential (04/01/2025 8:52 AM CDT) Blood Result [employer] Provider MD LAB BLOOD ORDERABLES Karlee l Result Performing Organization Address City/[facility] de Phone Number EXTERNAL LAB * Phosphorus (04/01/2025 8:52 AM CDT) Blood Result [employer] Provider MD LAB BLOOD ORDERABLES Karlee l Result Performing Organization Address City/[facility] Co de Phone Number EXTERNAL LAB * PTH (04/01/2025 8:52 AM CDT) Blood Result [employer] Provider MD LAB BLOOD ORDERABLES Karlee l Result Performing Organization Address City/[facility] Co de Phone Number EXTERNAL LAB * Albumin (04/01/2025 8:52 AM CDT) Blood Result [facility] Historical Provider MD LAB BLOOD ORDERABLES Karlee l Result Performing Organization Address City/[facility] Co de Phone Number EXTERNAL LAB * CALCIUM (02/20/2025 4:07 PM CDT) Result [facility] Historical Provider MD LAB BLOOD ORDERABLES Karlee l Result EXTERNAL LAB * Potassium, Serum (02/20/2025 4:07 PM CDT) [facility] Provider MD LAB BLOOD ORDERABLES Karlee l Result Performing Organization Address [facility] de Phone Number EXTERNAL LAB * Phosphorus (02/20/2025 4:07 PM CDT) Blood [facility] Provider MD LAB BLOOD ORDERABLES Karlee l Result Performing Organization Address [facility] de Phone Number EXTERNAL LAB * PTH (02/20/2025 4:07 PM CDT) Blood [facility] Provider MD LAB BLOOD ORDERABLES Karlee l Result Performing Organization Address [facility] de Phone Number EXTERNAL LAB * Albumin (02/20/2025 4:07 PM CDT) Blood [facility] Provider MD LAB BLOOD ORDERABLES Karlee l Result Performing Organization Address [facility] de Phone Number EXTERNAL LAB * Screening Mammogram Bilateral [employer] (12/14/2023 11:02 AM SQL REPORT WRITER) Anatomical Region Laterality Modality Breast Bilateral Mammography Narrative 12/14/2023 11:28 AM SQL REPORT WRITER Mammogram Technique: Bilateral Digital Breast Tomosynthesis, Bilateral C-view 2D Screening mammogram. Views obtained: bilateral craniocaudal and bilateral mediolateral oblique. Computer Aided Detection was performed. Mammogram Findings: The present examination has been compared to prior imaging studies performed at [facility] on 06/22/2015, 12/16/2021 and 12/06/2022. There [...] compared to prior imaging studies performed at [facility] on 06/22/2015, 12/16/2021 and 12/06/2022. There [...] Krista SEVERINO POINT OF CARE TEST ORDArabella RABLES Final Result * (ABNORMAL) eGFR (08/30/2021 9:53 PM SQL REPORT WRITER) eGFR 7(L) 90 - 130 mL/min/1.[address] [facility] Comment: Interpretive Data Reference Interval Normal [...] last reviewed 2020 Blood 08/30/2021 9:53 PM SQL REPORT WRITER 08/31/2021 1:30 AM SQL REPORT WRITER us Slava Lowe MD LAB BLOOD ORDERABLES Karlee l Result Performing Organization Address City/[facility]/ZIP Co de Phone Number [facility] Department [place] [address] * Hepatitis panel, acute (11/14/2020 10:19 AM SQL REPORT WRITER) Hep A IgM Nonreactive Nonreactive [facility] Comment: Interpretive Data: If Hep A IgM Ab is reported as Equivocal, a new sample should be drawn in two weeks for testing. Current interpretive data was last revised on 20. Hep B core IgM Nonreactive Nonreactive [facility] Comment: Interpretive Data If HepB Core IgM Ab is reported as Equivocal, a new sample should be drawn in two weeks for testing. Current interpretive data was last revised on 20. Hep C Ab Nonreactive Nonreactive [facility] Comment: Interpretive Data Nonreactive: Antibodies to HCV [...] last revised on 2020. HepBsAg Nonreactive Nonreactive [facility] Blood specimen (specimen) 11/14/2020 10:19 AM SQL REPORT WRITER 11/14/2020 10:19 AM SQL REPORT WRITER us Pierce Clark MD LAB MICROBIOLOGY - GENERAL ORDERABLES Final Result Performing Organization Address City/[facility]/ZIP Co de Phone Number [facility] [address] Department [place] [address] * COLONOSCOPY (06/04/2020 4:03 PM CDT) Anatomical Region Laterality Modality Other Narrative Procedure Note Cruzito Benitez MD - 06/04/2020 4:03 PM CDT [facility] Patient Name: Fani Horton Procedure Date: 06/04/2020 4:03 PM Date of : 1960 Admit Type: Inpatient Age: 60 Gender: Female Attending MD: Cruzito Simms M.D. Room: [facility] OR POD 5 ROOM 224 Note [...] The scope was passed under direct vision.The CF [id number] Endoscope was introduced throughthe anus and advanced to the cecum, identified by appendiceal orifice and ileocecal valve. The colonoscopy was performed without difficulty. The patient tolerated the procedure well. The quality of the bowel preparation was evaluated using the BBPS ([place] Bowel Preparation Scale) with scores of:Right Colon [...] On: 06/04/2020 4:03 PM Recognized by the [place] [employer] for promoting quality in endoscopy Cruzito Simms MD ENDOSCOPY PROCEDURES Final Result * Lipid panel (06/03/2020 2:56 AM CDT) Cholesterol 163 30 - 199 mg/dL [facility] Comment: Interpretive Data Ages < or [...] revised on 2018. Triglycerides 125 <=149 mg/dL [facility] Comment: Interpretive Data Ages < or [...] revised on 2018. HDL 67 >=40 mg/dL [facility] Comment: Interpretive Data Ages < or [...] on 2018. LDL, calculated 71 <=129 mg/dL [facility] Comment: Interpretive Data Ages < [...] revised on 2018. Non-HDL Cholesterol 96 mg/[facility] Comment: Interpretive Data Ages < or [...] last revised on 2018. Chol/HDL ratio 2 [facility] Blood specimen (specimen) 06/03/2020 2:56 AM CDT 06/03/2020 3:07 AM CDT us Terence Mayen MD LAB BLOOD ORDERABLES Final Result [facility] Department [place] [address] from Last 3 Months or Most Recently Relevant to Health Maintenance Insurance MEDICARE [facility] BL CHOICE PRF PPO OR MEDICARE CIGNA CIGNA MEDICARE SUPPLEMENT INS[place] MEDICARE [facility] Advance Directives For more information, please contact: [phone] Documents on File Type Date Recorded 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 Expl 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 ADVANCE DIRECTIVE 05/31/2019 5:52 AM POWER OF MACHINE CEMENTER-MEDICAL ADVANCE DIRECTIVE 04/30/2019 7:33 PM POWER OF MACHINE CEMENTER-MEDICAL ADVANCE DIRECTIVE 04/24/2019 2:54 PM POWER OF MACHINE CEMENTER-MEDICAL * Full Code (Latest Code Status on [...] 6:22 PM 06/04/2020 2:56 PM Care Teams [facility] Psychiatrist Relationship Specialty Start Date End Date Marguerite Fuchs MD PCP - General Family Practice 10/27/20 Chelle Espinoza MD Referring Physician Endocrinology Diabetes & Metabolism 03/06/20 Aft, Cesilia Allen MD PhD Surgeon Surgical Oncology 11/18/21 [place] [id number] [address] Consulting Physician Nephrology 05/12/24 Catherine Cain PA [address] [facility] ENDOCRINOLOGY, [address] [address] Physician Pallet Rectifier Physician Pallet Rectifier 05/17/25
--- OUTSIDE RECORDS SUMMARY | 2025-05-23 11:40 | XMS_ITS ---
Author Organization [facility] Address [address] [place] [address] Care Team Providers Care Foamite Mixer Name Role Phone Chelle Espinoza MD Unavailable Marguerite Fuchs MD Primary Care Provider Aft, Cesilia Allen MD PhD Unavailable Peter Joe MD Unavailable Catherine Cain Unavailable Dialysis Access Sites Type [...] Read Routine (OP Routine) 12/14/2023 11:02 AM CERTIFIED NURSING ASSISTANT INSTRUCTOR Screening mammogram, encounter for POCT HEMOGLOBIN A1C Routine 02/22/2022 1 0:26 AM CDT Type 2 diabetes mellitus with complication, with long-term current use of insulin (HCC) EGFR STAT 08/30/2021 9:53 PM CERTIFIED NURSING ASSISTANT INSTRUCTOR HEPATITIS PANEL, ACUTE STAT 11/14/2020 10:19 AM CERTIFIED NURSING ASSISTANT INSTRUCTOR COLONOSCOPY 06/04/2020 4:03 PM CDT LIPID PANEL [...] complication, with long-term current use of insulin ([facility]),Class 3 severe obesity due to excess calories with serious comorbidity and body mass index (BMI) of 60.0 to 69.9 in adult Inject 0.5 mL (2.5 mg total) under the skin every 7 days 6 mL 2 02/13/20 25 Active insulin glargine (TOUJEO) 300 unit/mL (1.5 mL) pen for injectionIndications :Type 2 diabetes mellitus with complication, with long-term current use of insulin ([facility]) Inject 44 units under the skin daily. 42 mL 2 02/13/20 25 Active glucagon (BAQSIMI) 3 mg/actuation spray,non-aerosolInd ications:Type 2 diabetes mellitus with complication, with long-term current use of insulin ([facility]) Administer 1 spray into one nostril as [...] complication, with long-term current use of insulin ([facility]) Inject 24-29 units with breakfast, 38-32 units [...] with long-term current use of insulin (HCC) Inject 24-29 units with breakfast, 38-32 units [...] 02/10/2021 Assessment & Plan (11/11/2021 12:12 PM CERTIFIED NURSING ASSISTANT INSTRUCTOR): Pfizer vaccine 10/09/2021, 03/03/2021, 02/10/2021 Abnormal findings [...] Monitor. Assessment & Plan (10/26/2023 9:15 AM CERTIFIED NURSING ASSISTANT INSTRUCTOR): Defer cataract surgery until signs and symptoms indicate. Pt was educated on the diagnosis. Recommend daily UV eye protection. Assessment & Plan (10/27/2020 9:01 AM CERTIFIED NURSING ASSISTANT INSTRUCTOR): Not yet Visually significant; defer cataract extraction [...] rescue Assessment & Plan (11/23/2019 5:30 PM CERTIFIED NURSING ASSISTANT INSTRUCTOR): Due to insulin overdose (accidental) - continue to monitor as above and treat as needed per hypoglycemia protocol Assessment & Plan (11/22/2019 10:08 PM CERTIFIED NURSING ASSISTANT INSTRUCTOR): Due to insulin overdose (accidental) - continue to monitor as above and treat as needed per hypoglycemia protocol Cellulitis of leg, right 11/22/2019 Assessment & Plan (11/23/2019 5:30 PM CERTIFIED NURSING ASSISTANT INSTRUCTOR): Was seen by dermatology on 11/08/2019 at which time culture was performed. Patient has culture results which are positive for proteus mirabilis sensitive to ampicillin. She was prescribed ampicillin 500mg BID for 30 days per patient. - Continue ampicillin 500mg BID while inpatient Assessment & Plan (11/22/2019 10:49 PM CERTIFIED NURSING ASSISTANT INSTRUCTOR): Was seen by dermatology on 11/08/2019 at [...] and renal adjusted dry weight. S/p HD 10 and tolerated. No evidence [...] be further evaluated by US Pt has information security and has appointment coming up This finding was discussed and she will follow up with them Diabetes mellitus 07/10/2019 Assessment & Plan (08/13/2024 12:40 PM CDT): - Diabetes is complicated by neuropathy, end-stage renal disease on hemodialysis, hypertension, hyperlipidemia and obesity. 90-day Dexcom GMI 7.6%, above goal. Lab Results Component Value Date HGBA1C 6.8 02/22/2022 Per [place] [employer], goal A1c is less 7% [...] etc. Assessment & Plan (08/26/2019 7:42 AM CERTIFIED NURSING ASSISTANT INSTRUCTOR): No longer requires insulin therapy now that [...] 10/2019. Had a catheter for HD in [facility]. Initially managed with eliquis but transitioned [...] 06/26/2019 Assessment & Plan (11/23/2019 5:30 PM CERTIFIED NURSING ASSISTANT INSTRUCTOR): Continue allopurinol Assessment & Plan (11/22/2019 10:03 PM CERTIFIED NURSING ASSISTANT INSTRUCTOR): Continue allopurinol Assessment & Plan (07/16/2019 9:40 [...] safety. Assessment & Plan (11/15/2024 9:09 PM CERTIFIED NURSING ASSISTANT INSTRUCTOR): Managed by renal, need to minimize risk [...] hypoglycemia. Assessment & Plan (10/20/2022 10:20 AM CERTIFIED NURSING ASSISTANT INSTRUCTOR): Need to minimize risk of hypoglycemia. Assessment [...] hypoglycemia Assessment & Plan (11/23/2019 5:30 PM CERTIFIED NURSING ASSISTANT INSTRUCTOR): HD MWF Access: Last HD: 11/20 (mon). She had rescheduled her outpatient HD for today (Thursday 11/23 at 10:30am) - consult renal given elevating blood sugars, will need regimen going forward with current infection. Assessment & Plan (11/23/2019 5:20 PM CERTIFIED NURSING ASSISTANT INSTRUCTOR): HD MWF Access: Last HD: 11/20 (mon). She had rescheduled her outpatient HD for today (Thursday 11/23 at 10:30am) - consult renal given elevating blood sugars, will need regimen going forward with current infection. Assessment & Plan (08/26/2019 7:43 AM CERTIFIED NURSING ASSISTANT INSTRUCTOR): No longer requires insulin therapy. Assessment & [...] bilateral knee pain. Patient discharge with home PT/OT/chcf which has not been initiated. Continue lidocaine [...] bilateral knee pain. Patient discharge with home PT/OT/chcf which has not been initiated. Continue lidocaine [...] bilateral knee pain. Patient discharge with home PT/OT/chcf which has not been initiated. Continue lidocaine patch bilateral knees, oral prn tylenol and diclofenac dose increased to 4gm with improvement. Encouraged patient to use medications to improve mobility with therapy and agreeable. PT/OT for debilitation. Await SNF, insurance approval still pending. Assessment & Plan (07/25/2019 11:17 AM CDT): Recent admission 07/10-07/19 for OA bilateral knee pain. Patient discharge with home PT/OT/chcf which has not been initiated. Continue lidocaine patch bilateral knees, oral prn tylenol and diclofenac dose increased to 4gm with improvement. Encouraged patient to use medications to improve mobility with therapy and agreeable. PT/OT for debilitation. Await SNF Assessment & Plan (07/24/2019 2:04 PM CDT): Recent admission for bilateral knee pain. Patient discharge with home PT/OT/chcf which has not been initiated. -continue lidocaine patch bilateral knees -continue prn tylenol and diclofenac PT/OT for debilitation. Assessment & Plan (07/23/2019 1:55 PM CDT): Recent admission 07/10-07/19 for bilateral knee pain. Patient discharge with home PT/OT/chcf which has not been initiated. -continue lidocaine patch bilateral knees -continue prn tylenol and diclofenac Assessment & Plan (07/22/2019 6:15 PM CDT): Recent admission 07/10-07/19 for bilateral knee pain. Patient discharge with home PT/OT/chcf which has not been initiated. -continue lidocaine [...] 01/09/2019 Assessment & Plan (11/23/2019 5:30 PM CERTIFIED NURSING ASSISTANT INSTRUCTOR): Continue phos binder - phos 4.9, prior to dialysis. - patient reports previously low and discontinued sevelamer Assessment & Plan (11/23/2019 5:23 PM CERTIFIED NURSING ASSISTANT INSTRUCTOR): Continue phos binder - phos 4.9, prior to dialysis. - patient reports previously low and discontinued sevelamer Anemia of chronic renal failure 06/01/2018 Assessment & Plan (11/23/2019 5:29 PM CERTIFIED NURSING ASSISTANT INSTRUCTOR): Usually received darbopoietin on Fridays with HD. - CBC stable. Assessment & Plan (11/23/2019 5:18 PM CERTIFIED NURSING ASSISTANT INSTRUCTOR): Usually received darbopoietin on Fridays with HD. [...] Component Value Date HGBA1C 6.8 02/22/2022 Per [place] [employer], goal A1c is less 7% [...] etc. Assessment & Plan (11/15/2024 9:10 PM CERTIFIED NURSING ASSISTANT INSTRUCTOR): Overall glycemic control is within a reasonable range of control and safety. A1c 6.6% Assessment & Plan (05/12/2024 2:26 PM CDT): Glucoses a little high, but need to minimize risk of hypoglycemia. Assessment & Plan (02/08/2024 8:39 PM CDT): Glucoses very high after meals. Needs adjustments in basal and mealtime insulins. Assessment & Plan (10/26/2023 9:15 AM CERTIFIED NURSING ASSISTANT INSTRUCTOR): Pt ed. Stressed BG control (HbA1C<7) to [...] diabetes. Assessment & Plan (10/22/2022 12:48 PM CERTIFIED NURSING ASSISTANT INSTRUCTOR): Awaiting Hemoglobin A1c result; Dexcom report average [...] and she has also met with a director social. Assessment & Plan (02/23/2022 10:29 AM CDT): Hemoglobin A1c decreased to 6.8%, with minimal hypoglycemia. Continue using Dexcom for continuous monitoring and low BG alarms. She is taking Lantus PM daily, consistently. She is taking Humalog with meals and using sliding scale. She plans to continue making diet changes to help lower BG. Assessment & Plan (11/18/2021 12:55 PM CERTIFIED NURSING ASSISTANT INSTRUCTOR): Needs adjustments in insulins, particularly with variable [...] hypoglycemia. Assessment & Plan (10/27/2020 9:01 AM CERTIFIED NURSING ASSISTANT INSTRUCTOR): No retinopath; pt ed BG control -annual [...] today Assessment & Plan (11/15/2024 9:09 PM CERTIFIED NURSING ASSISTANT INSTRUCTOR): Continue supplement, monitored by renal Assessment & [...] renal Assessment & Plan (11/18/2021 12:52 PM CERTIFIED NURSING ASSISTANT INSTRUCTOR): Continue supplement, monitored by renal Assessment & Plan (03/17/2021 2:38 PM CDT): Continue supplement, monitored by renal Assessment & Plan (03/06/2020 10:42 AM CDT): Continue supplement, monitored by renal Assessment & Plan (06/15/2018 7:52 AM CDT): On daily supplement, chronic renal insufficiency Pes planus 10/18/2012 JASON on CPAP 10/18/2012 Assessment & Plan (11/23/2019 5:30 PM CERTIFIED NURSING ASSISTANT INSTRUCTOR): Continue CPAP with sleep. - CPAP ordered Assessment & Plan (11/22/2019 10:09 PM CERTIFIED NURSING ASSISTANT INSTRUCTOR): Continue CPAP with sleep. - CPAP ordered [...] mask/CPAP. Sleeping well. Defer to PCP for penitentiary weight management & goal setting for weight loss, with morbid obesity (BMI 60) playing a role. Assessment & Plan (07/27/2019 11:17 AM CDT): JASON w/ cpap at night, setting 11cmHg. Compliant with nightly mask/CPAP. Sleeping well. Defer to PCP for penitentiary weight management, with morbid obesity (BMI 60) playing a role. Assessment & Plan (07/26/2019 11:43 AM CDT): JASON w/ cpap at night, setting 11cmHg. Compliant with nightly mask. Sleeping well. Defer to PCP for terminal gauger supervisor weight management, with morbid obesity (BMI 60) playing a role. Assessment & Plan (07/25/2019 11:19 AM CDT): JASON w/ cpap at night, setting 11cmHg. Compliant with nightly mask. Defer to PCP for terminal gauger supervisor weight management, with morbid obesity (BMI 60) [...] QHS Assessment & Plan (11/23/2019 5:30 PM CERTIFIED NURSING ASSISTANT INSTRUCTOR): Continue Cymbalta and gabapentin Assessment & Plan (11/22/2019 10:12 PM CERTIFIED NURSING ASSISTANT INSTRUCTOR): Continue Cymbalta and gabapentin Assessment & Plan (08/26/2019 7:43 AM CERTIFIED NURSING ASSISTANT INSTRUCTOR): Clinically stable at this time Assessment & [...] panel Assessment & Plan (11/15/2024 9:09 PM CERTIFIED NURSING ASSISTANT INSTRUCTOR): Continue statin, optimize glycemic control. Assessment & [...] dialysis. Assessment & Plan (10/20/2022 10:17 AM CERTIFIED NURSING ASSISTANT INSTRUCTOR): She is taking ezetimibe 10mg, no longer [...] bleed. Assessment & Plan (11/23/2019 5:29 PM CERTIFIED NURSING ASSISTANT INSTRUCTOR): Continue home losartan - routine vitals Assessment & Plan (11/23/2019 5:26 PM CERTIFIED NURSING ASSISTANT INSTRUCTOR): Continue home losartan - routine vitals Assessment [...] vative Free, Intramuscular 07/23/2012 Influenza, Unspecified 07/31/2023,07/31/2020 Megathread (J&J) SARS-CoV-2 Vaccination 08/01/2023 MMR 09/14/2015,08/14/2015 Pfizer [...] on file Legal Sex Female 3:06 AM CERTIFIED NURSING ASSISTANT INSTRUCTOR Gender Identity Not on file Sexual Orientation Not on file Last Filed Vital Signs Vital Sign Reading Time Taken Comments Blood Pressure 115/62 02/12/2025 11:34 AM CDT automatic retake Pulse 75 02/12/2025 10:14 AM CDT Temperature 36.6 C (97.8 F) 02/12/2025 10:14 AM CDT Respiratory Rate 19 08/30/2024 3:00 PM CERTIFIED NURSING ASSISTANT INSTRUCTOR Oxygen Saturation 92% 08/30/2024 3:0 0 PM CERTIFIED NURSING ASSISTANT INSTRUCTOR Inhaled Oxygen Concentration - - Weight 146.3 kg (322 lb 9.6 oz) 02/12/2025 10:14 AM CDT Height 152.4 cm (5') 02/12/2025 10:14 AM CDT Body Mass Index 63 02/12/2025 10:14 AM CDT Results * Glucose (04/01/2025 8:52 AM CDT) us Historical Provider MD LAB BLOOD ORDERABLES Karlee l Result EXTERNAL LAB * CALCIUM (04/01/2025 8:52 AM CDT) us Historical Provider MD LAB BLOOD ORDERABLES Karlee l Result EXTERNAL LAB * Vitamin D, 25-Hydroxy, Total (04/01/2025 8:52 AM CDT) Result [facility] Provider MD LAB BLOOD ORDERABLES Karlee l Result EXTERNAL LAB * A1C (manual) (04/01/2025 8:52 AM CDT) Result [facility] Provider MD LAB BLOOD ORDERABLES Karlee l Result Performing Organization Address City/[facility]/ZIP Co de Phone Number EXTERNAL LAB * Iron profile w/ IBC (04/01/2025 8:52 AM CDT) Blood Result [facility] Provider MD LAB BLOOD ORDERABLES Karlee l Result Performing Organization Address City/[facility] de Phone Number EXTERNAL LAB * CBC without differential (04/01/2025 8:52 AM CDT) Blood Result [facility] Provider MD LAB BLOOD ORDERABLES Karlee l Result Performing Organization Address City/State/[facility] Co de Phone Number EXTERNAL LAB * Phosphorus (04/01/2025 8:52 AM CDT) Blood Result [facility] Provider MD LAB BLOOD ORDERABLES Karlee l Result Performing Organization Address City/[facility] Co de Phone Number EXTERNAL LAB * PTH (04/01/2025 8:52 AM CDT) Blood Result [facility] Provider MD LAB BLOOD ORDERABLES Karlee l Result EXTERNAL LAB * Albumin (04/01/2025 8:52 AM CDT) Blood Result [facility] Provider MD LAB BLOOD ORDERABLES Karlee l Result Performing Organization Address City/State/[facility] Co de Phone Number EXTERNAL LAB * CALCIUM (02/20/2025 4:07 PM CDT) [facility] Provider MD LAB BLOOD ORDERABLES Karlee l Result Performing Organization Address [facility] de Phone Number EXTERNAL LAB * Potassium, Serum (02/20/2025 4:07 PM CDT) [facility] Provider MD LAB BLOOD ORDERABLES Karlee l Result Performing Organization Address [facility] de Phone Number EXTERNAL LAB * Phosphorus (02/20/2025 4:07 PM CDT) Blood [facility] Provider MD LAB BLOOD ORDERABLES Karlee l Result Performing Organization Address [facility] de Phone Number EXTERNAL LAB * PTH (02/20/2025 4:07 PM CDT) Blood [facility] Provider MD LAB BLOOD ORDERABLES Karlee l Result Performing Organization Address [facility] de Phone Number EXTERNAL LAB * Albumin (02/20/2025 4:07 PM CDT) Blood Result [facility] Provider MD LAB BLOOD ORDERABLES Karlee l Result Performing Organization Address [facility] de Phone Number EXTERNAL LAB * Screening Mammogram Bilateral W [employer] (12/14/2023 11:02 AM CERTIFIED NURSING ASSISTANT INSTRUCTOR) Anatomical Region Laterality Modality Breast Bilateral Mammography Narrative 12/14/2023 11:28 AM CERTIFIED NURSING ASSISTANT INSTRUCTOR Mammogram Technique: Bilateral Digital Breast Tomosynthesis, Bilateral C-view 2D Screening mammogram. Views obtained: bilateral craniocaudal and bilateral mediolateral oblique. Computer Aided Detection was performed. Mammogram Findings: The present examination has been compared to prior imaging studies performed at [facility] on 06/22/2015, 12/16/2021 and 12/06/2022. There are [...] to prior imaging studies performed at [facility] on 06/22/2015, 12/16/2021 and 12/06/2022. There are [...] Result * (ABNORMAL) eGFR (08/30/2021 9:53 PM CERTIFIED NURSING ASSISTANT INSTRUCTOR) eGFR 7(L) 90 - 130 mL/min/1.7 3 [...] last reviewed 2020 Blood 08/30/2021 9:53 PM CERTIFIED NURSING ASSISTANT INSTRUCTOR 08/31/2021 1:30 AM CERTIFIED NURSING ASSISTANT INSTRUCTOR Slava Lowe MD LAB BLOOD ORDERABLES Karlee l Result Performing Organization Address [facility]/ZIP Co de Phone Number [facility] [place] [address] * Hepatitis panel, acute (11/14/2020 10:19 AM CERTIFIED NURSING ASSISTANT INSTRUCTOR) Hep A IgM Nonreactive Nonreactive [facility] Comment: Interpretive Data: If Hep A IgM Ab is reported as Equivocal, a new sample should be drawn in two weeks for testing. Current interpretive data was last revised on 20. Hep B core IgM Nonreactive Nonreactive [facility] Comment: Interpretive Data If HepB Core IgM Ab is reported as Equivocal, a new sample should be drawn in two weeks for testing. Current interpretive data was last revised on 20. Hep C Ab Nonreactive Nonreactive [facility] Comment: Interpretive Data Nonreactive: Antibodies [...] last revised on 2020. HepBsAg Nonreactive Nonreactive [facility] Blood specimen (specimen) 11/14/2020 10:19 AM CERTIFIED NURSING ASSISTANT INSTRUCTOR 11/14/2020 10:19 AM CERTIFIED NURSING ASSISTANT INSTRUCTOR us Pierce Clark MD LAB MICROBIOLOGY - GENERAL ORDERABLES Final Result Performing Organization Address City/[facility]/ZIP Co de Phone Number [facility] [address] [place] [address] * COLONOSCOPY (06/04/2020 4:03 PM CDT) Anatomical [...] The scope was passed under direct vision.The [id number] Endoscope was introduced throughthe anus and advanced to the cecum, identified by appendiceal orifice and ileocecal valve. The colonoscopy was performed without difficulty. The patient tolerated the procedure well. The quality of the bowel preparation was evaluated using the BBPS ([place] Bowel Preparation Scale) with scores of:Right Colon [...] On: 06/04/2020 4:03 PM Recognized by the [place] [employer] for promoting quality in endoscopy Cruzito Simms MD ENDOSCOPY PROCEDURES Final Result * Lipid panel (06/03/2020 2:56 AM CDT) Cholesterol 163 30 - 199 mg/dL [facility] Comment: Interpretive Data Ages [...] revised on 2018. HDL 67 >=40 mg/dL [facility] Comment: Interpretive Data Ages < or [...] on 2018. LDL, calculated 71 <=129 mg/dL [facility] Comment: Interpretive Data Ages < or [...] revised on 2018. Non-HDL Cholesterol 96 mg/dL [facility] Comment: Interpretive Data Ages < or [...] last revised on 2018. Chol/HDL ratio 2 [facility] Blood specimen (specimen) 06/03/2020 2:56 AM CDT 06/03/2020 3:07 AM CDT Terence Mayen MD LAB BLOOD ORDERABLES Final Result [facility] Department [place] [id number] from Last 3 Months or Most Recently Relevant to Health Maintenance
--- OUTSIDE RECORDS SUMMARY | 2025-05-23 11:40 | XMS_ITS | Clinical Summary ---
Author Organization [facility] Address [address] [place] [address] Care Team Providers Care Reservation Sales Agent Name Role Phone Cory Ramirez MD Primary Care Provider [phone] Allergies Active Allergy Reactions Criticality Noted Date Comments Jamal Inhibitors Swelling 04/13/2018 Metformin Nausea Only 04/13/2018 Medications aspirin 81 MG chewable tablet Chew 81 mg by mouth daily. Active NIFEdipine 30 MG 24 hr tablet Take 30 mg by mouth daily. Active hydrALAZINE 50 MG tablet Take 50 mg by mouth 3 (three) times daily. Active bumetanide 2 MG tablet Take 2 mg by mouth 3 (three) times a week. Active insulin detemir 100 UNIT/ML injection Inject 25 Units into the skin 2 (two) times daily. Active insulin aspart (NOVOLOG) 100 UNIT/ML injection (VIAL) Inject 15 Units into the skin 3 (three) times daily before meals. Active pravastatin 40 MG tablet Take 40 mg by mouth daily. Active Cholecalciferol 2000 units Tab Take 2,000 Units by mouth daily. Active gabapentin 300 MG capsule Take 300 mg by mouth 3 (three) times daily. Active pantoprazole 20 MG tablet Take 40 mg by mouth daily. Active allopurinol 100 MG tablet Take 100 mg by mouth daily. Active vitamin E 400 UNIT capsule Take 400 Units by mouth 2 (two) times daily. Active Active Problems Problem Noted Date Diagnosed Date Anemia of chronic renal failure 06/01/2018 Chronic renal disease, stage III 06/01/2018 Anemia 04/11/2018 Social History Tobacco Use Types Packs/Day Years Used Date Smoking Tobacco: Former Cigarettes 0.3 5 0 10/23/1982 - 10/23/1987 Smokeless Tobacco: Never Tobacco Cessation:Counseling Given: No Alcohol Use Standard Drinks/Week Comments No 0 (1 standard drink = 0.6 oz pur e alcohol) Comments No Sex and Gender Information Value Date Recorded Sex Assigned at Not on file Legal Sex Female 1:58 PM CDT Gender Identity Not on file Sexual Orientation Not on file Last Filed Vital Signs Vital Sign Reading Time Taken Comments Blood Pressure 208/100 07/03/2018 3:40 AM CDT Pulse 72 07/03/2018 3:40 AM CDT Temperature 36.7 C (98.1 F) 07/03/2018 3:40 AM CDT Respiratory Rate 18 07/03/2018 3:40 AM CDT Oxygen Saturation 96% 07/03/2018 3:40 AM CDT Inhaled Oxygen Concentration - - Weight 169.2 kg (373 lb 0.3 oz) 018 11:42 AM CDT Height 152.4 cm (5') 06/26/2018 11:42 AM CDT Body Mass Index 72.85 06/26/2018 11:42 AM CDT Plan of Treatment Health Maintenance Due Date Last Done Comments Colorectal Cancer Screening Colonoscopy (10 Years) 1958 Hepatitis C 02/17/1976 DTaP, Tdap and Td Vaccines ( 1 - Tdap) 1977 Mammogram Screening 1998 Zoster Vaccines (1 of 2) 02/17/2008 Pneumococcal Vaccine: 50+ Years (2 of 2 - PCV) 07/23/2013 07/23/2012, 11/19/2010 Dexa Scan (General) 2023 COVID-19 Vaccine ( - 2023-2 5 season) 2024 RSV Immunization or 60+ Years (1 - 1-dose 75+ series) 2033 Meningococcal B Vaccine Aged Out No l onger eligible based on patient's age to complete this topic Meningococcal Vaccine Aged Out No makayla irene eligible based on patient's age to complete this topic RSV Immunizations Under 20 Months Aged Out No longer eligible b ased on patient's age to complete this topic Insurance [facility] Care Teams Reservation Sales Agent Relationship Specialty Start Date End Date Cory Ramirez MD [address] [id number] PCP - General INTERNAL MEDICINE 05/28/18
--- OUTSIDE RECORDS SUMMARY | 2025-05-23 11:40 | XMS_ITS | Encounter Summary ---
Author Organization [facility] Address [address] [place] [address] Phone Care Team Providers Care District Administrative Assistant Name Role Phone Josephine Acosta MD Primary Care Provider Chelle Espinoza MD Unavailable Sue Cummins RN Unavailable Marguerite Fuchs MD Primary Care Provider RehgNickie NP Unavailable Brennan Wesley MD Unavailable Aft, Cesilia Allen MD PhD Unavailable Peter Joe MD Unavailable [phone] Catherine Cain Unavailable Encounter Details Date Type [...] on file Legal Sex Female 3:06 AM LONG CHAIN QUILLER TENDER Gender Identity Not on file Sexual Orientation [...] COVID: Suspected 11/09/2020 11/09/2020 11/09/2020 9:53 PM LONG CHAIN QUILLER TENDER COVID19 11/09/2020 11/09/2020 12/01/2020 3:05 AM LONG CHAIN QUILLER TENDER COVID: Recovered Comment:Added based on recent COVID infection. 12/01/2020 12/02/2020 03/31/2021 3:05 AM C DT documented as of this encounter Care Teams District Administrative Assistant Relationship Specialty Start Date End Date Josephine Acosta MD PCP - General Family Medicine 07/02/19 10/26/20 Marguerite Fuchs MD [address] [address] PCP - General Family Practice 10/27/20 Chelle Espinoza MD Referring Physician Endocrinology Diabetes & Metabolism 03/06/20 Sue Cummins, RN [id number] [place] [address] SHOP Outpatient Compact Assembler 06/05/20 07/06/20 Nickie Tidwell NP [address] [place] [address] Nurse Practitioner Nurse Practitioner 03/16/21 02/07/24 Brennan Wesley MD [address] [place] [address] Referring Physician Nephrology 03/16/21 05/11/24 Aft, Cesilia Allen MD PhD [address] [place] [address] Surgeon Surgical Oncology 11/18/21 [place] [address] [facility] [address] [place] [address] Consulting Physician Nephrology 05/12/24 Catherine Cain PA [address] [facility] IM ENDOCRINOLOGY, [address] [place] [address] Physician Cocktail Server Physician Cocktail Server 05/17/25 documented as of this encounter
--- OUTSIDE RECORDS SUMMARY | 2025-05-23 11:40 | XMS_ITS | Encounter Summary ---
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 Author CCM Chronic Pain Care Plan Chronic Care Management Improving( 8:56 AM MARINE ENGINE MACHINIST APPRENTICE) No Ana Paula Talley RN Note: [...] on filedocumented in this encounter Care Teams Energy And Sustainability Manager Relationship Specialty Start Date End Date Marguerite Fuchs MD PCP - General Family Practice 10/27/20 Chelle Espinoza MD Referring Physician Endocrinology Diabetes & Metabolism 03/06/20 Cesilia Aguilar MD PhD Surgeon Surgical Oncology 11/18/21 [place] [address] [facility] [address] [place] [address] Consulting Physician Nephrology 05/12/24 Catherine Cain PA [address] [facility] IM ENDOCRINOLOGY, [facility] [address] [place] [address] Physician Associate Scientist Physician Associate Scientist 05/17/25 documented as of this encounter
--- OUTSIDE RECORDS SUMMARY | 2025-05-23 11:40 | XMS_ITS | Clinical Summary ---
Author Organization [facility] Address [address] [place] [address] Phone Care Team Providers Care Semiconductor Wafers Tester Name Role Phone Unavailable Primary Care Provider Unavailabl e Encounters Date Type Department Care Team Description 04/05/2025 Orders Only [facility] [address] [facility], [address] [place], [place] [id number] Lizz Rider NP from Last 3 Months [...] 1979 Influenza Vaccine (#1) 2025 [place] [id number] [facility]
--- OUTSIDE RECORDS SUMMARY | 2025-05-23 11:40 | XMS_ITS | Clinical Summary ---
Author Organization [facility] Address [address] [place] [address] Care Team Providers Care Weight And Test Bar Clerk Name Role Phone Unavailable Primary Care Provider [...]
--- OUTSIDE RECORDS SUMMARY | 2025-05-23 11:40 | XMS_ITS ---
Author Organization [facility] Address [address] [place] [address] Care Team Providers Care Echo Technologist Name Role Phone Chelle Espinoza MD Unavailable [...] 02/10/2021 Assessment & Plan (11/11/2021 12:12 PM POLICE ACADEMY INSTRUCTOR): Pfizer vaccine 10/09/2021, 03/03/2021, 02/10/2021 Abnormal [...] Monitor. Assessment & Plan (10/26/2023 9:15 AM POLICE ACADEMY INSTRUCTOR): Defer cataract surgery until signs and symptoms indicate. Pt was educated on the diagnosis. Recommend daily UV eye protection. Assessment & Plan (10/27/2020 9:01 AM POLICE ACADEMY INSTRUCTOR): Not yet Visually significant; defer cataract [...] rescue Assessment & Plan (11/23/2019 5:30 PM POLICE ACADEMY INSTRUCTOR): Due to insulin overdose (accidental) - continue to monitor as above and treat as needed per hypoglycemia protocol Assessment & Plan (11/22/2019 10:08 PM POLICE ACADEMY INSTRUCTOR): Due to insulin overdose (accidental) - continue to monitor as above and treat as needed per hypoglycemia protocol Cellulitis of leg, right 11/22/2019 Assessment & Plan (11/23/2019 5:30 PM POLICE ACADEMY INSTRUCTOR): Was seen by dermatology on 11/08/2019 at which time culture was performed. Patient has culture results which are positive for proteus mirabilis sensitive to ampicillin. She was prescribed ampicillin 500mg BID for 30 days per patient. 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 90-day Dexcom GMI 7.6%, above goal. Lab Results Component Value Date HGBA1C 6.8 02/22/2022 Per [place] [employer], goal A1c is less 7% [...] etc. Assessment & Plan (08/26/2019 7:42 AM POLICE ACADEMY INSTRUCTOR): No longer requires insulin therapy now [...] 10/2019. Had a catheter for HD in [facility]. Initially managed with eliquis but transitioned [...] 06/26/2019 Assessment & Plan (11/23/2019 5:30 PM POLICE ACADEMY INSTRUCTOR): Continue allopurinol Assessment & Plan (11/22/2019 10:03 PM POLICE ACADEMY INSTRUCTOR): Continue allopurinol Assessment & Plan (07/16/2019 [...] safety. Assessment & Plan (11/15/2024 9:09 PM POLICE ACADEMY INSTRUCTOR): Managed by renal, need to minimize [...] hypoglycemia. Assessment & Plan (10/20/2022 10:20 AM POLICE ACADEMY INSTRUCTOR): Need to minimize risk of hypoglycemia. [...] hypoglycemia Assessment & Plan (11/23/2019 5:30 PM POLICE ACADEMY INSTRUCTOR): HD MWF Access: Last HD: 11/20 (mon). She had rescheduled her outpatient HD for today (Thursday 11/23 at 10:30am) - consult renal given elevating blood sugars, will need regimen going forward with current infection. Assessment & Plan (11/23/2019 5:20 PM POLICE ACADEMY INSTRUCTOR): HD MWF Access: Last HD: 11/20 (mon). She had rescheduled her outpatient HD for today (Thursday 11/23 at 10:30am) - consult renal given elevating blood sugars, will need regimen going forward with current infection. Assessment & Plan (08/26/2019 7:43 AM POLICE ACADEMY INSTRUCTOR): No longer requires insulin therapy. Assessment [...] bilateral knee pain. Patient discharge with home PT/OT/shelter which has not been initiated. Continue lidocaine [...] bilateral knee pain. Patient discharge with home PT/OT/shelter which has not been initiated. Continue lidocaine [...] bilateral knee pain. Patient discharge with home PT/OT/shelter which has not been initiated. Continue lidocaine patch bilateral knees, oral prn tylenol and diclofenac dose increased to 4gm with improvement. Encouraged patient to use medications to improve mobility with therapy and agreeable. PT/OT for debilitation. Await SNF, insurance approval still pending. Assessment & Plan (07/25/2019 11:17 AM CDT): Recent admission 07/10-07/19 for OA bilateral knee pain. Patient discharge with home PT/OT/shelter which has not been initiated. Continue lidocaine patch bilateral knees, oral prn tylenol and diclofenac dose increased to 4gm with improvement. Encouraged patient to use medications to improve mobility with therapy and agreeable. PT/OT for debilitation. Await SNF Assessment & Plan (07/24/2019 2:04 PM CDT): Recent admission 07/10-07/19 for bilateral knee pain. Patient discharge with home PT/OT/shelter which has not been initiated. -continue lidocaine patch bilateral knees -continue prn tylenol and diclofenac PT/OT for debilitation. Assessment & Plan (07/23/2019 1:55 PM CDT): Recent admission 07/10-07/19 for bilateral knee pain. Patient discharge with home PT/OT/shelter which has not been initiated. -continue lidocaine patch bilateral knees -continue prn tylenol and diclofenac Assessment & Plan (07/22/2019 6:15 PM CDT): Recent admission 07/10-07/19 for bilateral knee pain. Patient discharge with home PT/OT/shelter which has not been initiated. -continue lidocaine [...] 01/09/2019 Assessment & Plan (11/23/2019 5:30 PM POLICE ACADEMY INSTRUCTOR): Continue phos binder - phos 4.9, prior to dialysis. - patient reports previously low and discontinued sevelamer Assessment & Plan (11/23/2019 5:23 PM POLICE ACADEMY INSTRUCTOR): Continue phos binder - phos 4.9, prior to dialysis. - patient reports previously low and discontinued sevelamer Anemia of chronic renal failure 06/01/2018 Assessment & Plan (11/23/2019 5:29 PM POLICE ACADEMY INSTRUCTOR): Usually received darbopoietin on Fridays with HD. - CBC stable. Assessment & Plan (11/23/2019 5:18 PM POLICE ACADEMY INSTRUCTOR): Usually received darbopoietin on Fridays with [...] Component Value Date HGBA1C 6.8 02/22/2022 Per [place] [employer], goal A1c is less 7% [...] etc. Assessment & Plan (11/15/2024 9:10 PM POLICE ACADEMY INSTRUCTOR): Overall glycemic control is within a reasonable range of control and safety. A1c 6.6% Assessment & Plan (05/12/2024 2:26 PM CDT): Glucoses a little high, but need to minimize risk of hypoglycemia. Assessment & Plan (02/08/2024 8:39 PM CDT): Glucoses very high after meals. Needs adjustments in basal and mealtime insulins. Assessment & Plan (10/26/2023 9:15 AM POLICE ACADEMY INSTRUCTOR): Pt ed. Stressed BG control (HbA1C<7) [...] diabetes. Assessment & Plan (10/22/2022 12:48 PM POLICE ACADEMY INSTRUCTOR): Awaiting Hemoglobin A1c result; Dexcom report [...] and she has also met with a envelope sealer operator. Assessment & Plan (02/23/2022 10:29 AM CDT): Hemoglobin A1c decreased to 6.8%, with minimal hypoglycemia. Continue using Dexcom for continuous monitoring and low BG alarms. She is taking Lantus PM daily, consistently. She is taking Humalog with meals and using sliding scale. She plans to continue making diet changes to help lower BG. Assessment & Plan (11/18/2021 12:55 PM POLICE ACADEMY INSTRUCTOR): Needs adjustments in insulins, particularly with [...] hypoglycemia. Assessment & Plan (10/27/2020 9:01 AM POLICE ACADEMY INSTRUCTOR): No retinopath; pt ed BG control [...] today Assessment & Plan (11/15/2024 9:09 PM POLICE ACADEMY INSTRUCTOR): Continue supplement, monitored by renal Assessment [...] renal Assessment & Plan (11/18/2021 12:52 PM POLICE ACADEMY INSTRUCTOR): Continue supplement, monitored by renal Assessment & Plan (03/17/2021 2:38 PM CDT): Continue supplement, monitored by renal Assessment & Plan (03/06/2020 10:42 AM CDT): Continue supplement, monitored by renal Assessment & Plan (06/15/2018 7:52 AM CDT): On daily supplement, chronic renal insufficiency Pes planus 10/18/2012 JASON on CPAP 10/18/2012 Assessment & Plan (11/23/2019 5:30 PM POLICE ACADEMY INSTRUCTOR): Continue CPAP with sleep. - CPAP ordered Assessment & Plan (11/22/2019 10:09 PM POLICE ACADEMY INSTRUCTOR): Continue CPAP with sleep. - CPAP [...] mask/CPAP. Sleeping well. Defer to PCP for alf weight management & goal setting for weight loss, with morbid obesity (BMI 60) playing a role. Assessment & Plan (07/27/2019 11:17 AM CDT): JASON w/ cpap at night, setting 11cmHg. Compliant with nightly mask/CPAP. Sleeping well. Defer to PCP for intermediate accountant weight management, with morbid obesity (BMI 60) playing a role. Assessment & Plan (07/26/2019 11:43 AM CDT): JASON w/ cpap at night, setting 11cmHg. Compliant with nightly mask. Sleeping well. Defer to PCP for alf weight management, with morbid obesity (BMI 60) playing a role. Assessment & Plan (07/25/2019 11:19 AM CDT): JASON w/ cpap at night, setting 11cmHg. Compliant with nightly mask. Defer to PCP for alf weight management, with morbid obesity (BMI 60) [...] QHS Assessment & Plan (11/23/2019 5:30 PM POLICE ACADEMY INSTRUCTOR): Continue Cymbalta and gabapentin Assessment & Plan (11/22/2019 10:12 PM POLICE ACADEMY INSTRUCTOR): Continue Cymbalta and gabapentin Assessment & Plan (08/26/2019 7:43 AM POLICE ACADEMY INSTRUCTOR): Clinically stable at this time Assessment [...] panel Assessment & Plan (11/15/2024 9:09 PM POLICE ACADEMY INSTRUCTOR): Continue statin, optimize glycemic control. Assessment [...] dialysis. Assessment & Plan (10/20/2022 10:17 AM POLICE ACADEMY INSTRUCTOR): She is taking ezetimibe 10mg, no [...] bleed. Assessment & Plan (11/23/2019 5:29 PM POLICE ACADEMY INSTRUCTOR): Continue home losartan - routine vitals Assessment & Plan (11/23/2019 5:26 PM POLICE ACADEMY INSTRUCTOR): Continue home losartan - routine vitals [...] 020 Assessment & Plan (11/23/2019 5:30 PM POLICE ACADEMY INSTRUCTOR): Off insulin since Aug 2019 due to [...] PCP. Assessment & Plan (11/23/2019 5:25 PM POLICE ACADEMY INSTRUCTOR): Off insulin since Aug 2019 due to [...] line 7/2, plan for outpatient dialysis at [facility] - 120mg IV Lasix BID->bumex - Continue [...]
[2025-05-23 14:46] LABS: Hematocrit 34.2 % (37.0-47.0); Hemoglobin 10.2 g/dL (12.0-15.0); Immature Granulocyte Percent A 6.0 % (0-0.5); Lymphocytes Absolute Auto 2.10 K/mm3 (0.9-3.2); Mean Corpuscular HGB Conc 29.8 g/dl (32-36); Mean Corpuscular Hemoglobin 30.8 pg (26-34); Mean Corpuscular Volume 103.3 fl (80-100); Nucleated Red Blood Cells Absolute Auto 0.030 K/mm3 (0.0-0.012); Nucleated Red Blood Cells Perc 0.3 % (0.0-0.2); Platelet Count Result 294 k/mm3 (150-375); Red Blood Count 3.31 M/mm3 (4.2-5.4); White Blood Count 9.5 K/mm3 (4.5-10.0)
[2025-05-23 15:20] LABS: Iron 98 ug/dL (37-170)
[2025-05-23 15:24] LABS: Alanine Aminotransferase 37 U/L (6-35); Albumin Level 4.4 g/dL (3.5-5.1); Alkaline Phosphatase 178 U/L (38-126); Anion Gap 12 mmol/L (4-12); Aspartate Amino Transferase 60 U/L (14-36); Bilirubin,Total 0.6 mg/dL (0.2-1.3); Blood Urea Nitrogen 41 mg/dL (7-17); Calcium 9.8 mg/dL (8.4-10.2); Carbon Dioxide 29 mmol/L (22-30); Chloride 93 mmol/L (98-107); Cholesterol 231 mg/dL (0-200); Estimated Glomerular Filt Rate 4; Glucose 210 mg/dL (65-110); HDL Direct 49 mg/dL; Potassium 4.1 mmol/L (3.4-5.0); Sodium 134 mmol/L (137-145); Total Protein 9.1 g/dL (6.3-8.2); Triglycerides 164 mg/dL (<150)
[2025-05-23 15:27] LABS: Hypochromasia 1+; Schistocytes None Seen
[2025-05-23 15:30] LABS: Percent Iron Saturation 49 % (20-50)
[2025-05-23 15:55] LABS: Ferritin 702.00 ng/mL (11.1-264)
[2025-05-23 15:57] LABS: Thyroid Stimulating Hormone Reflex 5.910 uIU/mL (0.465-4.68)
[2025-05-23 16:07] LABS: Ferritin 693.00 ng/mL (11.1-264)
[2025-05-23 16:35] LABS: Vitamin B12 803.0 pg/mL (239-931)
[2025-05-23 16:42] LABS: Free T4 Free Thyroxine Reflex 1.41 ng/dL (0.78-2.19)
[2025-05-23 17:29] LABS: Total Triiodothyronine (T3) 0.91 NG/ML (0.82-1.58)
== END 2025-05-23 11:36 | disposition home or self-care (01) ==
PROVIDERS: PCP Family Medicine; Visit Provider Family Medicine
DX: D64.9 Anemia, unspecified (principal); I10 Essential (primary) hypertension; E55.9 Vitamin D deficiency, unspecified; E78.5 Hyperlipidemia, unspecified
CPT/HCPCS: 36415; 80053; 80061; 82306; 82607; 82728; 82746; 83540; 83550; 84439; 84443; 84480; 85025

== ENCOUNTER 2025-06-06 10:49 | Outpatient (CLI) | payer MEDICARE, SELFPAY ==
--- OUTSIDE RECORDS SUMMARY | 2025-06-06 10:56 | XMS_ITS ---
Author Organization [facility] Address [address] [place] [address] Care Team Providers Care Acupuncturist Name Role Phone Chelle Espinoza MD Unavailable [...] 02/10/2021 Assessment & Plan (11/11/2021 12:12 PM PRIVACY MANAGER): Pfizer vaccine 10/09/2021, 03/03/2021, 02/10/2021 Abnormal findings [...] Monitor. Assessment & Plan (10/26/2023 9:15 AM PRIVACY MANAGER): Defer cataract surgery until signs and symptoms indicate. Pt was educated on the diagnosis. Recommend daily UV eye protection. Assessment & Plan (10/27/2020 9:01 AM PRIVACY MANAGER): Not yet Visually significant; defer cataract extraction [...] rescue Assessment & Plan (11/23/2019 5:30 PM PRIVACY MANAGER): Due to insulin overdose (accidental) - continue to monitor as above and treat as needed per hypoglycemia protocol Assessment & Plan (11/22/2019 10:08 PM PRIVACY MANAGER): Due to insulin overdose (accidental) - continue to monitor as above and treat as needed per hypoglycemia protocol Cellulitis of leg, right 11/22/2019 Assessment & Plan (11/23/2019 5:30 PM PRIVACY MANAGER): Was seen by dermatology on 11/08/2019 at which time culture was performed. Patient has culture results which are positive for proteus mirabilis sensitive to ampicillin. She was prescribed ampicillin 500mg BID for 30 days per patient. 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 90-day Dexcom GMI 7.6%, above goal. Lab Results Component Value Date HGBA1C 6.8 02/22/2022 Per [employer], goal A1c is less 7% [...] etc. Assessment & Plan (08/26/2019 7:42 AM PRIVACY MANAGER): No longer requires insulin therapy now that [...] 10/2019. Had a catheter for HD in [facility]. Initially managed with eliquis but transitioned [...] 06/26/2019 Assessment & Plan (11/23/2019 5:30 PM PRIVACY MANAGER): Continue allopurinol Assessment & Plan (11/22/2019 10:03 PM PRIVACY MANAGER): Continue allopurinol Assessment & Plan (07/16/2019 9:40 [...] safety. Assessment & Plan (11/15/2024 9:09 PM PRIVACY MANAGER): Managed by renal, need to minimize risk [...] hypoglycemia. Assessment & Plan (10/20/2022 10:20 AM PRIVACY MANAGER): Need to minimize risk of hypoglycemia. Assessment [...] hypoglycemia Assessment & Plan (11/23/2019 5:30 PM PRIVACY MANAGER): HD MWF Access: Last HD: 11/20 (mon). She had rescheduled her outpatient HD for today (Thursday 11/23 at 10:30am) - consult renal given elevating blood sugars, will need regimen going forward with current infection. Assessment & Plan (11/23/2019 5:20 PM PRIVACY MANAGER): HD MWF Access: Last HD: 11/20 (mon). She had rescheduled her outpatient HD for today (Thursday 11/23 at 10:30am) - consult renal given elevating blood sugars, will need regimen going forward with current infection. Assessment & Plan (08/26/2019 7:43 AM PRIVACY MANAGER): No longer requires insulin therapy. Assessment & [...] 01/09/2019 Assessment & Plan (11/23/2019 5:30 PM PRIVACY MANAGER): Continue phos binder - phos 4.9, prior to dialysis. - patient reports previously low and discontinued sevelamer Assessment & Plan (11/23/2019 5:23 PM PRIVACY MANAGER): Continue phos binder - phos 4.9, prior to dialysis. - patient reports previously low and discontinued sevelamer Anemia of chronic renal failure 06/01/2018 Assessment & Plan (11/23/2019 5:29 PM PRIVACY MANAGER): Usually received darbopoietin on Fridays with HD. - CBC stable. Assessment & Plan (11/23/2019 5:18 PM PRIVACY MANAGER): Usually received darbopoietin on Fridays with HD. [...] Component Value Date HGBA1C 6.8 02/22/2022 Per [employer], goal A1c is less 7% [...] etc. Assessment & Plan (11/15/2024 9:10 PM PRIVACY MANAGER): Overall glycemic control is within a reasonable range of control and safety. A1c 6.6% Assessment & Plan (05/12/2024 2:26 PM CDT): Glucoses a little high, but need to minimize risk of hypoglycemia. Assessment & Plan (02/08/2024 8:39 PM CDT): Glucoses very high after meals. Needs adjustments in basal and mealtime insulins. Assessment & Plan (10/26/2023 9:15 AM PRIVACY MANAGER): Pt ed. Stressed BG control (HbA1C<7) to [...] diabetes. Assessment & Plan (10/22/2022 12:48 PM PRIVACY MANAGER): Awaiting Hemoglobin A1c result; Dexcom report average [...] and she has also met with a named account executive. Assessment & Plan (02/23/2022 10:29 AM CDT): Hemoglobin A1c decreased to 6.8%, with minimal hypoglycemia. Continue using Dexcom for continuous monitoring and low BG alarms. She is taking Lantus PM daily, consistently. She is taking Humalog with meals and using sliding scale. She plans to continue making diet changes to help lower BG. Assessment & Plan (11/18/2021 12:55 PM PRIVACY MANAGER): Needs adjustments in insulins, particularly with variable [...] hypoglycemia. Assessment & Plan (10/27/2020 9:01 AM PRIVACY MANAGER): No retinopath; pt ed BG control -annual [...] today Assessment & Plan (11/15/2024 9:09 PM PRIVACY MANAGER): Continue supplement, monitored by renal Assessment & [...] renal Assessment & Plan (11/18/2021 12:52 PM PRIVACY MANAGER): Continue supplement, monitored by renal Assessment & Plan (03/17/2021 2:38 PM CDT): Continue supplement, monitored by renal Assessment & Plan (03/06/2020 10:42 AM CDT): Continue supplement, monitored by renal Assessment & Plan (06/15/2018 7:52 AM CDT): On daily supplement, chronic renal insufficiency Pes planus 10/18/2012 JASON on CPAP 10/18/2012 Assessment & Plan (11/23/2019 5:30 PM PRIVACY MANAGER): Continue CPAP with sleep. - CPAP ordered Assessment & Plan (11/22/2019 10:09 PM PRIVACY MANAGER): Continue CPAP with sleep. - CPAP ordered [...] mask/CPAP. Sleeping well. Defer to PCP for [facility] weight management & goal setting for weight loss, with morbid obesity (BMI 60) playing a role. Assessment & Plan (07/27/2019 11:17 AM CDT): JASON w/ cpap at night, setting 11cmHg. Compliant with nightly mask/CPAP. Sleeping well. 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 Assessment & Plan (07/26/2019 11:43 AM CDT): JASON w/ cpap at night, setting 11cmHg. Compliant with nightly mask. Sleeping well. Defer to PCP for [facility]cc weight management, with morbid obesity (BMI 60) playing a role. Assessment & Plan (07/25/2019 11:19 AM CDT): JASON w/ cpap at night, setting 11cmHg. Compliant with nightly mask. 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 Assessment & [...] dialysis. Assessment & Plan (10/20/2022 10:17 AM PRIVACY MANAGER): She is taking ezetimibe 10mg, no longer [...] bleed. Assessment & Plan (11/23/2019 5:29 PM PRIVACY MANAGER): Continue home losartan - routine vitals Assessment & Plan (11/23/2019 5:26 PM PRIVACY MANAGER): Continue home losartan - routine vitals Assessment [...] Therapy Plans No current plan information found. Other Current Plans [facility]* Plan Start Date:06/04/2025 Plan Provider:Jane Franklin NP Linked Problems Anemia of chronic renal fail ureDiabetic peripheral neuropathy (HCC) Treatment Medications No medications scheduled. Past Treatment and Therapy Plans Lifetime Dose [...] 020 Assessment & Plan (11/23/2019 5:30 PM PRIVACY MANAGER): Off insulin since Aug 2019 due to [...] PCP. Assessment & Plan (11/23/2019 5:25 PM PRIVACY MANAGER): Off insulin since Aug 2019 due to [...] line 04/23, plan for outpatient dialysis at [facility] - 120mg IV Lasix BID->bumex - [...]
--- OUTSIDE RECORDS SUMMARY | 2025-06-06 10:57 | XMS_ITS | Patient Health Record ---
Author Organization [address] [facility] Address [address] [address] [place] [address] Care Team Providers Care Plumber Maintenance Name Role Phone Devin Fuchsteokai Primary Care Provider Un available JuanisGutierrez Unavailable [phone] Allergies Allergen (clinical drug ingredient) Drug/Non Drug [...] disorder associated with type II diabetes mellitus (266007206) Type 2 diabetes mellitus with other diabetic neurological complication (E11.49) Active confirmed Problem Type 2 diabetes mellitus with peripheral angiopathy (436847542) Type 2 diabetes mellitus with diabetic peripheral angiopathy without gangrene, unspecified whether fci insulin use (E11.51) Active confirmed Plan Of Treatment No Information Insurance Providers Payer Name Payer Address Payer Phone Subscriber Number Group Number Insured Name Patient Relationship to Insured Coverage Start Date Coverage End Date Medicare [address] [place], [place] [id number] Fani Horton Self - patient is the insured [facility] [address] [place] [id number] Fani Horton Self - patient is the insured Medical (General) History Medical History History ICD Code Neuropathy of Feet Arthritis Diabetes Dialysis Gout kidney disease Surgical History Surgery Date(Month/Year) Graph in Left arm -ecessive bleeding 2022
--- OUTSIDE RECORDS SUMMARY | 2025-06-06 10:57 | XMS_ITS ---
Author Organization [facility] Address [address] [place] [address] Care Team Providers Care Manufacturing Engineer Name Role Phone Chelle Espinoza MD Unavailable [...] Procedure Name Priority Date/Time Associated Diagnosis Comments DIABETES MELLITUS TYPE 1 EVALUATION Routine 06/02/2025 4:16 PM CDT Type 2 diabetes mellitus with complication, with long-term current use of insulin (HCC) SCREENING MAMMOGRAM BILATERAL W KODAK Schedule Routine, Read Routine (OP Routine) 05/26/2025 9:00 AM CDT Screening mammogram, encounter for A1C (MANUAL) Routine 04/01/2025 8:52 AM CDT [...] CDT ALBUMIN Routine 04/01/2025 8:52 AM CDT POCT HEMOGLOBIN A1C Routine 02/22/2022 1 0:26 AM CDT Type 2 diabetes mellitus with complication, with long-term current use of insulin (HCC) EGFR STAT 08/30/2021 9:53 PM [employer] HEPATITIS PANEL, ACUTE STAT 11/14/2020 10:19 AM [employer] COLONOSCOPY 06/04/2020 4:03 PM CDT LIPID PANEL [...] mL (62.5 mg of elemental iron total) IV 3 (three) times a week Active acetaminophen [...] iron tabletIndications:Re nal Osteodystrophy with Hyperphosphatemia Take 1 tablet (210 mg total) by mouth daily before breakfast 07/04/20 22 [...] complication, with long-term current use of insulin ([facility]),Class 3 severe obesity due to excess calories with serious comorbidity and body mass index (BMI) of 60.0 to 69.9 in adult Inject 0.5 mL (2.5 mg total) under the skin every 7 days 6 mL 2 02/13/20 25 Active insulin glargine (TOUJEO) 300 unit/mL (1.5 mL) pen for injectionIndications :Type 2 diabetes mellitus with complication, with long-term current use of insulin ([facility]) Inject 44 units under the skin daily. 42 mL 2 02/13/20 25 Active glucagon (BAQSIMI) 3 mg/actuation spray,non-aerosolInd ications:Type 2 diabetes mellitus with complication, with long-term current use of insulin ([facility]) Administer 1 spray into one nostril as [...] complication, with long-term current use of insulin ([facility]) Inject 24-29 units with breakfast, 38-32 units with lunch and dinner and 5 units with snacks. Max TDD 110 units daily 99 mL 2 05/20/20 25 Active semaglutide (OZEMPIC) 0.25 mg or 0.5 mg (2 mg/3 mL) pen injector injectionIndications :Type 2 diabetes mellitus with complication, with long-term current use of insulin ([facility]) Inject 0.5 mg under the skin once a week 2 mL 06/04/20 25 Active pregabalin (LYRICA) 50 mg capsuleIndications:n erve pain Take 1 capsule (50 mg total) by mouth nightly TAKE 1 CAPSULE BY MOUTH ONCE DAILY TAKE ADDITIONAL DOSE AFTER DIALYSIS ON MONDAY, AND MONDAY 40 capsule 2 02/11/20 25 025 Discontin ued(Reord er) insulin lispro-aabc (LYUMJEV) 100 unit/mL pen for injectionIndications :Type 2 diabetes mellitus with complication, with long-term current use of insulin ([facility]) Inject 24-29 units with breakfast, 38-32 units [...] 02/10/2021 Assessment & Plan (11/11/2021 12:12 PM [employer]): Pfizer vaccine 10/09/2021, 03/03/2021, 02/10/2021 Abnormal findings [...] Monitor. Assessment & Plan (10/26/2023 9:15 AM [employer]): Defer cataract surgery until signs and symptoms indicate. Pt was educated on the diagnosis. Recommend daily UV eye protection. Assessment & Plan (10/27/2020 9:01 AM [employer]): Not yet Visually significant; defer cataract extraction [...] rescue Assessment & Plan (11/23/2019 5:30 PM [employer]): Due to insulin overdose (accidental) - continue to monitor as above and treat as needed per hypoglycemia protocol Assessment & Plan (11/22/2019 10:08 PM [employer]): Due to insulin overdose (accidental) - continue to monitor as above and treat as needed per hypoglycemia protocol Cellulitis of leg, right 11/22/2019 Assessment & Plan (11/23/2019 5:30 PM [employer]): Was seen by dermatology on 11/08/2019 at which time culture was performed. Patient has culture results which are positive for proteus mirabilis sensitive to ampicillin. She was prescribed ampicillin 500mg BID for 30 days per patient. - Continue ampicillin 500mg BID while inpatient Assessment & Plan (11/22/2019 10:49 PM [employer]): Was seen by dermatology on 11/08/2019 at [...] be further evaluated by US Pt has logger all round and has appointment coming up This finding was discussed and she will follow up with them Diabetes mellitus 07/10/2019 Assessment & Plan (08/13/2024 12:40 PM CDT): - Diabetes is complicated by neuropathy, end-stage renal disease on hemodialysis, hypertension, hyperlipidemia and obesity. 90-day Dexcom GMI 7.6%, above goal. Lab Results Component Value Date HGBA1C 6.8 02/22/2022 Per [place] [employer], goal A1c is less 7% [...] etc. Assessment & Plan (08/26/2019 7:42 AM [employer]): No longer requires insulin therapy now that [...] AM CDT): Alk Phos near 795 on 9/10 after remaining stable in 300s previously during [...] 10/2019. Had a catheter for HD in [facility]. Initially managed with eliquis but transitioned to [...] 06/26/2019 Assessment & Plan (11/23/2019 5:30 PM [employer]): Continue allopurinol Assessment & Plan (11/22/2019 10:03 PM [employer]): Continue allopurinol Assessment & Plan (07/16/2019 9:40 [...] safety. Assessment & Plan (11/15/2024 9:09 PM [employer]): Managed by renal, need to minimize risk [...] hypoglycemia. Assessment & Plan (10/20/2022 10:20 AM [employer]): Need to minimize risk of hypoglycemia. Assessment [...] hypoglycemia Assessment & Plan (11/23/2019 5:30 PM [employer]): HD MWF Access: Last HD: 11/20 (mon). She had rescheduled her outpatient HD for today (Thursday 11/23 at 10:30am) - consult renal given elevating blood sugars, will need regimen going forward with current infection. Assessment & Plan (11/23/2019 5:20 PM [employer]): HD MWF Access: Last HD: 11/20 (mon). She had rescheduled her outpatient HD for today (Thursday 11/23 at 10:30am) - consult renal given elevating blood sugars, will need regimen going forward with current infection. Assessment & Plan (08/26/2019 7:43 AM [employer]): No longer requires insulin therapy. Assessment & [...] Continue selevamer. Dialysis per renal. On . Monday. AVF site looks ok. Assessment & Plan [...] Plan (07/28/2019 12:00 PM CDT): Recent admission for OA bilateral knee pain. Patient discharge with home PT/OT/custodial which has not been initiated. Continue lidocaine [...] bilateral knee pain. Patient discharge with home PT/OT/custodial which has not been initiated. Continue lidocaine [...] bilateral knee pain. Patient discharge with home PT/OT/custodial which has not been initiated. Continue lidocaine patch bilateral knees, oral prn tylenol and diclofenac dose increased to 4gm with improvement. Encouraged patient to use medications to improve mobility with therapy and agreeable. PT/OT for debilitation. Await SNF, insurance approval still pending. Assessment & Plan (07/25/2019 11:17 AM CDT): Recent admission for OA bilateral knee pain. Patient discharge with home PT/OT/custodial which has not been initiated. Continue lidocaine patch bilateral knees, oral prn tylenol and diclofenac dose increased to 4gm with improvement. Encouraged patient to use medications to improve mobility with therapy and agreeable. PT/OT for debilitation. Await SNF Assessment & Plan (07/24/2019 2:04 PM CDT): Recent admission 27 for bilateral knee pain. Patient discharge with home PT/OT/custodial which has not been initiated. -continue lidocaine patch bilateral knees -continue prn tylenol and diclofenac PT/OT for debilitation. Assessment & Plan (07/23/2019 1:55 PM CDT): Recent admission 07/10-07/19 for bilateral knee pain. Patient discharge with home PT/OT/custodial which has not been initiated. -continue lidocaine patch bilateral knees -continue prn tylenol and diclofenac Assessment & Plan (07/22/2019 6:15 PM CDT): Recent admission 07/10-07/19 for bilateral knee pain. Patient discharge with home PT/OT/custodial which has not been initiated. -continue lidocaine [...] 01/09/2019 Assessment & Plan (11/23/2019 5:30 PM [employer]): Continue phos binder - phos 4.9, prior to dialysis. - patient reports previously low and discontinued sevelamer Assessment & Plan (11/23/2019 5:23 PM [employer]): Continue phos binder - phos 4.9, prior to dialysis. - patient reports previously low and discontinued sevelamer Anemia of chronic renal failure 06/01/2018 Assessment & Plan (11/23/2019 5:29 PM [employer]): Usually received darbopoietin on Fridays with HD. - CBC stable. Assessment & Plan (11/23/2019 5:18 PM [employer]): Usually received darbopoietin on Fridays with HD. [...] Component Value Date HGBA1C 6.8 02/22/2022 Per [place] [employer], goal A1c is less 7% [...] etc. Assessment & Plan (11/15/2024 9:10 PM [employer]): Overall glycemic control is within a reasonable range of control and safety. A1c 6.6% Assessment & Plan (05/12/2024 2:26 PM CDT): Glucoses a little high, but need to minimize risk of hypoglycemia. Assessment & Plan (02/08/2024 8:39 PM CDT): Glucoses very high after meals. Needs adjustments in basal and mealtime insulins. Assessment & Plan (10/26/2023 9:15 AM [employer]): Pt ed. Stressed BG control (HbA1C<7) to [...] diabetes. Assessment & Plan (10/22/2022 12:48 PM [employer]): Awaiting Hemoglobin A1c result; Dexcom report average [...] and she has also met with a foreign exchange trader. Assessment & Plan (02/23/2022 10:29 AM CDT): Hemoglobin A1c decreased to 6.8%, with minimal hypoglycemia. Continue using Dexcom for continuous monitoring and low BG alarms. She is taking Lantus PM daily, consistently. She is taking Humalog with meals and using sliding scale. She plans to continue making diet changes to help lower BG. Assessment & Plan (11/18/2021 12:55 PM [employer]): Needs adjustments in insulins, particularly with variable [...] hypoglycemia. Assessment & Plan (10/27/2020 9:01 AM [employer]): No retinopath; pt ed BG control -annual [...] today Assessment & Plan (11/15/2024 9:09 PM [employer]): Continue supplement, monitored by renal Assessment & [...] renal Assessment & Plan (11/18/2021 12:52 PM [employer]): Continue supplement, monitored by renal Assessment & Plan (03/17/2021 2:38 PM CDT): Continue supplement, monitored by renal Assessment & Plan (03/06/2020 10:42 AM CDT): Continue supplement, monitored by renal Assessment & Plan (06/15/2018 7:52 AM CDT): On daily supplement, chronic renal insufficiency Pes planus 10/18/2012 JASON on CPAP 10/18/2012 Assessment & Plan (11/23/2019 5:30 PM [employer]): Continue CPAP with sleep. - CPAP ordered Assessment & Plan (11/22/2019 10:09 PM [employer]): Continue CPAP with sleep. - CPAP ordered [...] mask/CPAP. Sleeping well. 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 Assessment & Plan (07/27/2019 11:17 AM CDT): JASON w/ cpap at night, setting 11cmHg. Compliant with nightly mask/CPAP. Sleeping well. 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 Assessment & Plan (07/26/2019 11:43 AM CDT): JASON w/ cpap at night, setting 11cmHg. Compliant with nightly mask. Sleeping well. Defer to PCP for chcf weight management, with morbid obesity (BMI 60) playing a role. Assessment & Plan (07/25/2019 11:19 AM CDT): JASON w/ cpap at night, setting 11cmHg. Compliant with nightly mask. Defer to PCP for chcf weight management, with morbid obesity (BMI 60) [...] QHS Assessment & Plan (11/23/2019 5:30 PM [employer]): Continue Cymbalta and gabapentin Assessment & Plan (11/22/2019 10:12 PM [employer]): Continue Cymbalta and gabapentin Assessment & Plan (08/26/2019 7:43 AM [employer]): Clinically stable at this time Assessment & [...] panel Assessment & Plan (11/15/2024 9:09 PM [employer]): Continue statin, optimize glycemic control. Assessment & [...] dialysis. Assessment & Plan (10/20/2022 10:17 AM [employer]): She is taking ezetimibe 10mg, no longer [...] bleed. Assessment & Plan (11/23/2019 5:29 PM [employer]): Continue home losartan - routine vitals Assessment & Plan (11/23/2019 5:26 PM [employer]): Continue home losartan - routine vitals Assessment [...] vative Free, Intramuscular 07/23/2012 Influenza, Unspecified 07/31/2023,07/31/2020 [employer] ([employer]) SARS-CoV-2 Vaccination 08/01/2023 MMR 09/14/2015,08/14/2015 Pfizer SARS-CoV-2 Monovalent Vaccination (12+ Yrs) PURPLE 10/09/2021,03/03/2021,02/10/2021 Pneumococcal Polysaccharide PPV23 10/18/2020,10/2011,11/19/2010 Tdap 08/14/2015 Social History Tobacco Use Types Packs/Day Years Used Date Smoking Tobacco: Former Cigarettes 0.3 10 1 978 - 1987 Smokeless Tobacco: Never Tobacco Cessation:Counseling Given: Not Answered Alcohol Use Standard Drinks/Week Comments Not Currently 0 (1 standard drink = 0.6 oz pur e alcohol) Hunger Vital Sign Answer Date Recorded Within the past 12 months, y ou worried that your food would run out before you got the money to buy more. Never true 03/14/20 24 Within the past 12 months, t he food you bought just didn't last and you didn't have money to get more. Never true 03/14/2024 AUDIT-C Answer Date Recorded Q1: How often do you have a drink containing alcohol? Never 06/04/2025 Q2: How many drinks containi ng alcohol do you have on a typical day when you are drinking? Patient does not drink Q3: How often do you have si x or more drinks on one occasion? Never 06/04/2025 Personal Safety Answer Date Recorded Have you ever been in or are you currently in a harmful physical or emotional relationship or is someone making you feel afraid or unsafe? Denies 08/30/2024 Comments No Sex and Gender Information Value Date Recorded Sex Assigned at Not on file Legal Sex Female 3:06 AM [employer] Gender Identity Not on file Sexual Orientation Not on file Last Filed Vital Signs Vital Sign Reading Time Taken Comments Blood Pressure 115/52 06/04/2025 9:10 AM CDT Pulse 86 06/04/2025 9:10 AM CDT Temperature 36.2 C (97.1 F) 06/04/2025 8:10 AM CDT Respiratory Rate 20 06/04/2025 9:10 AM CDT Oxygen Saturation 94% 06/04/2025 9:10 AM CDT Inhaled Oxygen Concentration - - Weight 144 kg (317 lb 7.4 oz) 06/04/2025 8:10 AM CDT Height 152.4 cm (5') 06/04/2025 8:10 AM CDT Body Mass Index 62 06/04/2025 8:10 AM CDT Results * Diabetes Mellitus Type 1 Evaluation (06/02/2025 4:16 PM CDT) Blood us Catherine SEVERINO LAB BLOOD ORDERABLES Karlee mckeon Result EXTERNAL LAB * Screening Mammogram Bilateral W Kodak (05/26/2025 9:00 AM CDT) Anatomical Region Laterality Modality Breast Bilateral Mammography Impressions 05/27/2025 3:17 PM CDT Bilateral No evidence of malignancy in either breast. OVERALL BI-RADS FINAL ASSESSMENT: 2 - Benign RECOMMENDATION: Recommend bilateral annual screening mammography. Narrative 05/27/2025 3:17 PM CDT EXAMINATION: Screening Mammogram Bilateral W Kodak: 05/26/2025 COMPARISON: Relevant prior studies available at the time of interpretation were reviewed, including the most recent mammogram on: 12/14/2023. TECHNIQUE: Mammography was performed with 2D and digital breast tomosynthesis (DBT) images. CAD was utilized. BREAST PARENCHYMAL COMPOSITION: There are scattered areas of fibroglandular density. FINDINGS: Bilateral 1) Calcifications: There are calcifications seen in both breasts. This finding is benign. There is no suspicious mass, calcification, or architectural distortion in either breast. Self Screening Mammogram IMG MAMMO PROCEDURES Fi nal Result * Glucose (04/01/2025 8:52 AM CDT) Historical Provider MD LAB BLOOD ORDERABLES Karlee l Result Performing Organization Address City/[facility] Co de Phone Number EXTERNAL LAB * CALCIUM (04/01/2025 8:52 AM CDT) Historical Provider MD LAB BLOOD ORDERABLES Karlee l Result Performing Organization Address City/[facility]/ZIP Co de Phone Number EXTERNAL LAB * Vitamin D, 25-Hydroxy, Total (04/01/2025 8:52 AM CDT) Historical Provider MD LAB BLOOD ORDERABLES Karlee l Result EXTERNAL LAB * A1C (manual) (04/01/2025 8:52 AM CDT) [facility] Provider MD LAB BLOOD ORDERABLES Karlee l Result Performing Organization Address City/[facility]/ZIP Co de Phone Number EXTERNAL LAB * Iron profile w/ IBC (04/01/2025 8:52 AM CDT) Blood Result [facility] Provider MD LAB BLOOD ORDERABLES Karlee l Result Performing Organization Address [facility] de Phone Number EXTERNAL LAB * CBC without differential (04/01/2025 8:52 AM CDT) Blood Result [facility] Provider MD LAB BLOOD ORDERABLES Karlee l Result Performing Organization Address [facility] de Phone Number EXTERNAL LAB * Phosphorus (04/01/2025 8:52 AM CDT) Blood Result [facility] Provider MD LAB BLOOD ORDERABLES Karlee l Result Performing Organization Address [facility] de Phone Number EXTERNAL LAB * PTH (04/01/2025 8:52 AM CDT) Blood Result [facility] Provider MD LAB BLOOD ORDERABLES Karlee l Result Performing Organization Address [facility] de Phone Number EXTERNAL LAB * Albumin (04/01/2025 8:52 AM CDT) Blood Result [facility] Provider MD LAB BLOOD ORDERABLES Karlee l Result Performing Organization Address [facility] de Phone Number EXTERNAL LAB * (ABNORMAL) POCT hemoglobin A1c (02/22/2022 10:26 AM CDT) Hemoglobin A1C, POC 6.8 Blood specimen (specimen) 02/22/2022 10:26 AM CDT Result [facility] Krista SEVERINO POINT OF CARE TEST VERONA RODRIGUEZ Final Result * (ABNORMAL) eGFR (08/30/2021 9:53 PM [employer]) eGFR 7(L) 90 - 130 mL/min/1.7 3 m2 [facility] Comment: Interpretive Data Reference Interval Normal >/= [...] last reviewed 2020 Blood 08/30/2021 9:53 PM [employer] 08/31/2021 1:30 AM [employer] us Slava Lowe MD LAB BLOOD ORDERABLES Karlee mckeon Result [facility] Department [place] [address] * Hepatitis panel, acute (11/14/2020 10:19 AM [employer]) Pathologist [facility] Hep A IgM Nonreactive Nonreactive [facility] Comment: Interpretive Data: If Hep A IgM Ab is reported as Equivocal, a new sample should be drawn in two weeks for testing. Current interpretive data was last revised on 20. Hep B core IgM Nonreactive Nonreactive [facility] Comment: Interpretive Data If HepB Core IgM Ab is reported as Equivocal, a new sample should be drawn in two weeks for testing. Current interpretive data was last revised on 20. Hep C Ab Nonreactive Nonreactive [facility] Comment: Interpretive Data Nonreactive: Antibodies to HCV [...] last revised on 2020. HepBsAg Nonreactive Nonreactive [facility] Blood specimen (specimen) 11/14/2020 10:19 AM [employer] 11/14/2020 10:19 AM [employer] us Pierce Clark MD LAB MICROBIOLOGY - GENERAL ORDERABLES Final Result [facility] [address] Department [place] [address] * COLONOSCOPY (06/04/2020 4:03 PM CDT) Anatomical Region Laterality Modality Other Narrative Procedure Note Cruzito Benitez MD - 06/04/2020 4:03 PM CDT [facility] Patient Name: Fani Horton Procedure Date: 06/04/2020 4:03 PM Date of : 1960 Admit Type: Inpatient Age: 60 Gender: Female Attending MD: Cruzito Simms M.D. Room: [facility] OR POD 5 ROOM 224 [...] The scope was passed under direct vision.The [id number] Endoscope was introduced throughthe anus and advanced to the cecum, identified by appendiceal orifice and ileocecal valve. The colonoscopy was performed without difficulty. The patient tolerated the procedure well. The quality of the bowel preparation was evaluated using the BBPS ([place] Bowel Preparation Scale) with scores of:Right Colon [...] On: 06/04/2020 4:03 PM Recognized by the [place] [employer] for promoting quality in endoscopy Cruzito Simms MD ENDOSCOPY PROCEDURES Final Result * Lipid panel (06/03/2020 2:56 AM CDT) Cholesterol 163 30 - 199 mg/dL [facility] Comment: Interpretive Data Ages < [...] revised on 2018. Triglycerides 125 <=149 mg/dL [facility] Comment: Interpretive Data Ages < or = [...] revised on 2018. HDL 67 >=40 mg/dL [facility] Comment: Interpretive Data Ages < or = [...] 2018. LDL, calculated 71 <=129 mg/dL [facility] Comment: Interpretive Data Ages < or = [...] revised on 2018. Non-HDL Cholesterol 96 mg/dL [facility] Comment: Interpretive Data Ages < or = [...] revised on 2018. Chol/HDL ratio 2 [facility] Blood specimen (specimen) 06/03/2020 2:56 AM CDT 06/03/2020 3:07 AM CDT us Terence Mayen MD LAB BLOOD ORDERABLES Final Result [facility] Department [place] [address] from Last 3 Months or Most Recently Relevant to Health Maintenance
--- OUTSIDE RECORDS SUMMARY | 2025-06-06 10:57 | XMS_ITS | Clinical Summary ---
Author Organization [facility] Address [address] [place] [address] Care Team Providers Care Master Esthetician Name Role Phone Chelle Espinoza MD Unavailable [phone] Marguerite Fuchs MD Primary Care Provider Aft, [...] with long-term current use of insulin ([facility]),Class 3 severe obesity due to excess calories with serious comorbidity and body mass index (BMI) of 60.0 to 69.9 in adult Inject 0.5 mL (2.5 mg total) under the skin every 7 days 6 mL 2 02/13/20 25 Active insulin glargine (TOUJEO) 300 unit/mL (1.5 mL) pen for injectionIndications :Type 2 diabetes mellitus with complication, with long-term current use of insulin ([facility]) Inject 44 units under the skin daily. 42 mL 2 02/13/20 25 Active glucagon (BAQSIMI) 3 mg/actuation spray,non-aerosolInd ications:Type 2 diabetes mellitus with complication, with long-term current use of insulin ([facility]) Administer 1 spray into one nostril as [...] with long-term current use of insulin ([facility]) Inject 24-29 units with breakfast, 38-32 units with lunch and dinner and 5 units with snacks. Max TDD 110 units daily 99 mL 2 05/20/20 25 Active semaglutide (OZEMPIC) 0.25 mg or 0.5 mg (2 mg/3 mL) pen injector injectionIndications :Type 2 diabetes mellitus with complication, with long-term current use of insulin (HCC) Inject 0.5 mg under the skin once [...] with long-term current use of insulin ([facility]) Inject 24-29 units with breakfast, 38-32 units [...] 02/10/2021 Assessment & Plan (11/11/2021 12:12 PM MAT MACHINE TENDER): Pfizer vaccine 10/09/2021, 03/03/2021, 02/10/2021 Abnormal findings [...] Monitor. Assessment & Plan (10/26/2023 9:15 AM MAT MACHINE TENDER): Defer cataract surgery until signs and symptoms indicate. Pt was educated on the diagnosis. Recommend daily UV eye protection. Assessment & Plan (10/27/2020 9:01 AM MAT MACHINE TENDER): Not yet Visually significant; defer cataract extraction [...] rescue Assessment & Plan (11/23/2019 5:30 PM MAT MACHINE TENDER): Due to insulin overdose (accidental) - continue to monitor as above and treat as needed per hypoglycemia protocol Assessment & Plan (11/22/2019 10:08 PM MAT MACHINE TENDER): Due to insulin overdose (accidental) - continue to monitor as above and treat as needed per hypoglycemia protocol Cellulitis of leg, right 11/22/2019 Assessment & Plan (11/23/2019 5:30 PM MAT MACHINE TENDER): Was seen by dermatology on 11/08/2019 at which time culture was performed. Patient has culture results which are positive for proteus mirabilis sensitive to ampicillin. She was prescribed ampicillin 500mg BID for 30 days per patient. 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 Assessment & Plan (08/26/2019 7:42 AM MAT MACHINE TENDER): No longer requires insulin therapy now that [...] 10/2019. Had a catheter for HD in [facility]. Initially managed with eliquis but transitioned [...] 06/26/2019 Assessment & Plan (11/23/2019 5:30 PM MAT MACHINE TENDER): Continue allopurinol Assessment & Plan (11/22/2019 10:03 PM MAT MACHINE TENDER): Continue allopurinol Assessment & Plan (07/16/2019 9:40 [...] safety. Assessment & Plan (11/15/2024 9:09 PM MAT MACHINE TENDER): Managed by renal, need to minimize risk [...] hypoglycemia. Assessment & Plan (10/20/2022 10:20 AM MAT MACHINE TENDER): Need to minimize risk of hypoglycemia. Assessment [...] hypoglycemia Assessment & Plan (11/23/2019 5:30 PM MAT MACHINE TENDER): HD MWF Access: Last HD: 11/20 (mon). She had rescheduled her outpatient HD for today (Thursday 11/23 at 10:30am) - consult renal given elevating blood sugars, will need regimen going forward with current infection. Assessment & Plan (11/23/2019 5:20 PM MAT MACHINE TENDER): HD MWF Access: Last HD: 11/20 (mon). She had rescheduled her outpatient HD for today (Thursday 11/23 at 10:30am) - consult renal given elevating blood sugars, will need regimen going forward with current infection. Assessment & Plan (08/26/2019 7:43 AM MAT MACHINE TENDER): No longer requires insulin therapy. Assessment & [...] bilateral knee pain. Patient discharge with home PT/OT/care home which has not been initiated. Continue lidocaine [...] bilateral knee pain. Patient discharge with home PT/OT/care home which has not been initiated. Continue lidocaine [...] bilateral knee pain. Patient discharge with home PT/OT/care home which has not been initiated. Continue lidocaine patch bilateral knees, oral prn tylenol and diclofenac dose increased to 4gm with improvement. Encouraged patient to use medications to improve mobility with therapy and agreeable. PT/OT for debilitation. Await SNF, insurance approval still pending. Assessment & Plan (07/25/2019 11:17 AM CDT): Recent admission 07/10-07/19 for OA bilateral knee pain. Patient discharge with home PT/OT/care home which has not been initiated. Continue lidocaine patch bilateral knees, oral prn tylenol and diclofenac dose increased to 4gm with improvement. Encouraged patient to use medications to improve mobility with therapy and agreeable. PT/OT for debilitation. Await SNF Assessment & Plan (07/24/2019 2:04 PM CDT): Recent admission 07/10-07/19 for bilateral knee pain. Patient discharge with home PT/OT/care home which has not been initiated. -continue lidocaine patch bilateral knees -continue prn tylenol and diclofenac PT/OT for debilitation. Assessment & Plan (07/23/2019 1:55 PM CDT): Recent admission 07/10-07/19 for bilateral knee pain. Patient discharge with home PT/OT/care home which has not been initiated. -continue lidocaine patch bilateral knees -continue prn tylenol and diclofenac Assessment & Plan (07/22/2019 6:15 PM CDT): Recent admission 07/10-07/19 for bilateral knee pain. Patient discharge with home PT/OT/care home which has not been initiated. -continue lidocaine [...] 01/09/2019 Assessment & Plan (11/23/2019 5:30 PM MAT MACHINE TENDER): Continue phos binder - phos 4.9, prior to dialysis. - patient reports previously low and discontinued sevelamer Assessment & Plan (11/23/2019 5:23 PM MAT MACHINE TENDER): Continue phos binder - phos 4.9, prior to dialysis. - patient reports previously low and discontinued sevelamer Anemia of chronic renal failure 06/01/2018 Assessment & Plan (11/23/2019 5:29 PM MAT MACHINE TENDER): Usually received darbopoietin on Fridays with HD. - CBC stable. Assessment & Plan (11/23/2019 5:18 PM MAT MACHINE TENDER): Usually received darbopoietin on Fridays with HD. [...] etc. Assessment & Plan (11/15/2024 9:10 PM MAT MACHINE TENDER): Overall glycemic control is within a reasonable range of control and safety. A1c 6.6% Assessment & Plan (05/12/2024 2:26 PM CDT): Glucoses a little high, but need to minimize risk of hypoglycemia. Assessment & Plan (02/08/2024 8:39 PM CDT): Glucoses very high after meals. Needs adjustments in basal and mealtime insulins. Assessment & Plan (10/26/2023 9:15 AM MAT MACHINE TENDER): Pt ed. Stressed BG control (HbA1C<7) to [...] diabetes. Assessment & Plan (10/22/2022 12:48 PM MAT MACHINE TENDER): Awaiting Hemoglobin A1c result; Dexcom report average [...] and she has also met with a neurosurgery physician. Assessment & Plan (02/23/2022 10:29 AM CDT): Hemoglobin A1c decreased to 6.8%, with minimal hypoglycemia. Continue using Dexcom for continuous monitoring and low BG alarms. She is taking Lantus PM daily, consistently. She is taking Humalog with meals and using sliding scale. She plans to continue making diet changes to help lower BG. Assessment & Plan (11/18/2021 12:55 PM MAT MACHINE TENDER): Needs adjustments in insulins, particularly with variable [...] hypoglycemia. Assessment & Plan (10/27/2020 9:01 AM MAT MACHINE TENDER): No retinopath; pt ed BG control -annual [...] today Assessment & Plan (11/15/2024 9:09 PM MAT MACHINE TENDER): Continue supplement, monitored by renal Assessment & [...] renal Assessment & Plan (11/18/2021 12:52 PM MAT MACHINE TENDER): Continue supplement, monitored by renal Assessment & Plan (03/17/2021 2:38 PM CDT): Continue supplement, monitored by renal Assessment & Plan (03/06/2020 10:42 AM CDT): Continue supplement, monitored by renal Assessment & Plan (06/15/2018 7:52 AM CDT): On daily supplement, chronic renal insufficiency Pes planus 10/18/2012 JASON on CPAP 10/18/2012 Assessment & Plan (11/23/2019 5:30 PM MAT MACHINE TENDER): Continue CPAP with sleep. - CPAP ordered Assessment & Plan (11/22/2019 10:09 PM MAT MACHINE TENDER): Continue CPAP with sleep. - CPAP ordered [...] mask/CPAP. Sleeping well. 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 Assessment & Plan (07/27/2019 11:17 AM CDT): JASON w/ cpap at night, setting 11cmHg. Compliant with nightly mask/CPAP. Sleeping well. 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 Assessment & Plan (07/26/2019 11:43 AM CDT): JASON w/ cpap at night, setting 11cmHg. Compliant with nightly mask. Sleeping well. Defer to PCP for halfway weight management, with morbid obesity (BMI 60) playing a role. Assessment & Plan (07/25/2019 11:19 AM CDT): JASON w/ cpap at night, setting 11cmHg. Compliant with nightly mask. Defer to PCP for halfway weight management, with morbid obesity (BMI 60) [...] QHS Assessment & Plan (11/23/2019 5:30 PM MAT MACHINE TENDER): Continue Cymbalta and gabapentin Assessment & Plan (11/22/2019 10:12 PM MAT MACHINE TENDER): Continue Cymbalta and gabapentin Assessment & Plan (08/26/2019 7:43 AM MAT MACHINE TENDER): Clinically stable at this time Assessment & [...] panel Assessment & Plan (11/15/2024 9:09 PM MAT MACHINE TENDER): Continue statin, optimize glycemic control. Assessment & [...] dialysis. Assessment & Plan (10/20/2022 10:17 AM MAT MACHINE TENDER): She is taking ezetimibe 10mg, no longer [...] bleed. Assessment & Plan (11/23/2019 5:29 PM MAT MACHINE TENDER): Continue home losartan - routine vitals Assessment & Plan (11/23/2019 5:26 PM MAT MACHINE TENDER): Continue home losartan - routine vitals Assessment [...] acciden frank or unintentional, initial encounter 11/22/2019 0515/ 020 Assessment & Plan (11/23/2019 5:30 PM MAT MACHINE TENDER): Off insulin since Aug 2019 due to [...] PCP. Assessment & Plan (11/23/2019 5:25 PM MAT MACHINE TENDER): Off insulin since Aug 2019 due to [...] 04/23, plan for outpatient dialysis at [facility] - 120mg IV Lasix BID->bumex - Continue [...] Encounters Date Type Department Care Team Description 06/04/2025 7:51 AM CDT - 06/04/2025 11:59 PM CDT Hospital Encounter [facility] [place] for [address] [place] [address] Rn, [facility] Diabetic peripheral neuropathy (HCC) (Primary Dx) Discharge Disposition: Discharge to home or self care 06/04/2025 Orders Only [facility] Endocrinology Metabolism and Lipid [facility] [address] [place] [address] [place] [address] Chio Gomez RMA Type 2 diabetes mellitus with complication, with long-term current use of insulin (HCC) (Primary Dx) 06/04/2025 Orders Only [facility] Endocrinology Metabolism and Lipid [facility] [address] [place] [address] [place] [address] Catherine Cain PA Type 2 diabetes mellitus with complication, with long-term current use of insulin (HCC) (Primary Dx) 06/03/2025 Orders Only [facility] [place] [facility] Medicine [address] [facility] [address] [place] [address] Jane Franklin NP 06/02/2025 Results Follow-Up [facility] Endocrinology Metabolism and Lipid [facility] [address] [place] [address] [place] [address] Catherine Cain PA Diabetes Mellitus Type 1 Evaluation 05/30/2025 Telephone [facility] Endocrinology Metabolism and Lipid [facility] [address]th [place] [address] [place] [address] Maria Dolores Tabares RN Lab Results 05/30/2025 Telephone [facility] Center at the [facility] Advanced Medicine [address] [facility] [address] [place] [address] Jane Franklin NP PMC Preprocedure 05/28/2025 Telephone [facility] Endocrinology Metabolism and Lipid [address] [facility] [address]th [place] [address] [place] [address] Maria Dolores Tabares RN CMN tandem 05/26/2025 1:31 PM CDT - 05/26/2025 11:59 PM CDT Hospital Encounter [facility] at the [facility] [address] [facility] [address] [place] [address] Jane Franklin NP Diabetic peripheral neuropathy (HCC) (Primary Dx); Type 2 diabetes mellitus with complication, with long-term current use of insulin (HCC); Sacroiliitis (CMS/HCC) - Bilateral; Spondylosis of lumbar region without myelopathy or radiculopathy Discharge Disposition: Discharge to home or self care 05/26/2025 8:14 AM CDT - 05/26/2025 11:59 PM CDT Hospital Encounter [facility] ([facility]) [address] [place] [address] Screening mammogram, encounter for Discharge Disposition: Discharge to home or self care 05/16/2025 9:00 AM CDT Clinical Support [facility] Endocrinology Metabolism and Lipid [address] [facility] [address] [place] [address] [place] [address] Shelia Robbins RN Type 2 diabetes mellitus with complication, with long-term current use of insulin (HCC) (Primary Dx); Corns and callosities 05/16/2025 8:00 AM CDT Clinical Support [facility] Endocrinology Metabolism and Lipid [address] [facility] [address] [place] [address] [place] [address] Daya Clemens, ELIZABETH Type 2 diabetes mellitus with complication, with long-term current use of insulin (HCC) (Primary Dx) 05/16/2025 Orders Only [facility] Endocrinology Metabolism and Lipid [address] [facility] [address] [place] [address] [place] [address] Catherine Cain PA Type 2 diabetes mellitus with complication, with long-term current use of insulin (HCC) (Primary Dx) 05/16/2025 Telephone [facility] Endocrinology Metabolism and Lipid [address] [place] [address] [place] [address] Maria Dolores Tabares RN 05/15/2025 12:00 PM CDT Telemedicine [facility] Endocrinology Metabolism and Lipid [address] [facility] [address] [place] [address] [place] [address] Chelle Espinoza MD Type 2 diabetes mellitus with complication, with long-term current use of insulin (HCC) (Primary Dx); Mixed hyperlipidemia; ESRD (end stage renal disease) on dialysis (HCC); Vitamin D deficiency 05/15/2025 Telephone [facility] Endocrinology Metabolism and Lipid [address] [place] [address] [place] [address] Maria Dolores Tabares RN Prior Auth; [email or web address] 05/15/2025 Telephone [facility] Endocrinology Metabolism and Lipid [address] [place] [address] [place] [address] Maria Dolores Tabares RN pain managment referral an CDE appt 05/02/2025 Telephone [facility] Surgery [address] [facility] Floor 1 [place] [address] Pj Toure MD 04/30/2025 Orders Only [facility] Endocrinology Metabolism and Lipid [address] [place] [address] [place] [address] Marissa Castro MD 04/30/2025 Telephone [facility] Endocrinology Metabolism and Lipid [address] [place] [address] [place] [address] Maria Dolores Tabares dental laboratory technician results [facility] 04/22/2025 Telephone [facility] Surgery [address] [facility] 8th [place] [address] [place] [address] Pj Toure MD 04/22/2025 Telephone [facility] Surgery [address] [facility] Floor 1 [place] [address] Pj Toure MD from Last 3 Months Immunizations Immunization Administration Dates Next Due Influenza, Quadrivalent, Spl it, Preservative Free, Intramuscular 08/08/2019 Influenza, Trivalent, IM (MDV) 11/14/2015,2012 Influenza, Trivalent, Preser vative Free, Intramuscular 07/23/2012 Influenza, Unspecified 07/31/2023,07/31/2020 Darrius (J&J) SARS-CoV-2 Vaccination 08/01/2023 MMR 09/14/2015,08/14/2015 Pfizer SARS-CoV-2 Monovalent Vaccination (12+ Yrs) PURPLE 10/09/2021,03/03/2021,02/10/2021 Pneumococcal Polysaccharide PPV23 10/18/2020,10/2011,11/19/2010 Tdap 08/14/2015 Surgical History Surgery Date Site/Laterality Comments CA DELIVERY ONLY 10/23/1988 - 10/22/1989 Section - (Added by TW Conv) CA CHOLECYSTECTOMY 10/23/2013 - 10/22/2014 Cholecystectomy - 1993 (Added by TW Conv) COLONOSCOPY 10/23/2019 - 10/22/2020 Complete Colonoscopy - (Added by TW Conv) PARTIAL NEPHRECTOMY 10/23/2011 - 10/22/2012 Left Kidney Surgery Laparoscopic Partial Nephrectomy - left 02/14/2012 (Added by TW Conv) CA UNLISTED PROCEDURE DENTOALVEOLAR STRUCTURES Oral Surgery Tooth Extraction - (Added by TW Conv) TUNNELED LINE PLACEMENT > 5 YEARS 04/23/2019 N/A CA REPAIR FIRST ABDOMINAL WALL HERNIA 10/23/2015 - [...] pancreatic cancer - (Added by TW Conv) Breast cancer Mother's Sister Diabetes type II Other 1 Type II [...] Relation Name Status Comments Brother Father Mother Mother's Sister Other 1 Other 2 Other 3 Other [...] on file Legal Sex Female 3:06 AM MAT MACHINE TENDER Gender Identity Not on file Sexual Orientation Not on file Obstetrics History Para Term AB IAB SAB Ectopic Multiple Livin g Live Births 1 1 Date Outcome GA Total Labor Labor/2nd/3rd Weight Sex Type Anes PTL Nga A1 A5 Name Clin Last Filed Vital Signs Vital Sign Reading [...] Mass Index 62 06/04/2025 8:10 AM CDT Plan of Treatment Health Maintenance [...] 2024 08/01/2023, 10/09/2021, 03/03/2021, Additional history exists Influenza Vaccine (#1) 2025 , 07/31/2020, 08/08/2019, Additional history exists DTaP/Tdap/Td Vaccine (2 - Td or Tdap) 08/14/2025 08/14/2015 Fall Risk Assessment 08/30/2025 08/30/2024 Dilated Eye Exam 02/17/2026 02/17/2025, 01/2024, 10/25/2022, Additional history exists Breast Cancer Screening-Mammogram 05/26/2026 05/26/2025, 12/14/2023, 12/06/2022, Additional history exists Colon Cancer Screening-Colonoscopy 06/04/2030 [...] Chronic Pain Care Plan Chronic Care Management On track(2024 8:11 AM CDT) Ana Paula Hoff RN Note: Problem: Chronic Pain Goals: 1. Minimize further functional decline 2. Maximize quality of life 3. Control pain Strategies: - Activity/exercise program recommendation - Conservative stepwise pain medicine strategy with multi-disciplinary approach - Recommend healthy lifestyle strategies and compensatory methods as needed Medical Devices Implanted Type Area Hawk Missile System Crewmember Device Identifier Shelf Expiration Date Model / Serial / Lot [employer]l [employer] [id number] 4-7mm 45cm 10cm Removable Ring Line [employer] [place] Bus Driver Graft - [id number] - [id number] Implanted:Qty: 1 on 05/28/2019 by Pj Toure MD at [facility] Other - see comments Left: Arm Wl [employer] [id number] 03/31/2024 [id number] / [id number] / Description:Left AV Graft [employer]l [employer] Viabahn 7mm 5cm 120cm Delivery System Superficial Femoral Artery [id number] - [id number] - [id number] Implanted:Qty: 1 on 08/30/2024 by Pj Toure MD at [facility] Stent Left: Arm Wl [employer] [id number] 03/26/2027 [id number] / [id number] / Procedures Procedure Name Priority Date/Time Associated [...] insulin (HCC) EGFR STAT 08/30/2021 9:53 PM MAT MACHINE TENDER HEPATITIS PANEL, ACUTE STAT 11/14/2020 10:19 AM MAT MACHINE TENDER COLONOSCOPY 06/04/2020 4:03 PM CDT LIPID PANEL STAT 06/03/2020 2:56 AM CDT from Last 3 Months or Most Recently Relevant to Health Maintenance Results * Diabetes Mellitus Type 1 Evaluation [...] Result * Glucose (04/01/2025 8:52 AM CDT) Result [facility] Provider MD LAB BLOOD ORDERABLES Karlee l Result Performing Organization Address [facility] Co de Phone Number EXTERNAL LAB * CALCIUM (04/01/2025 8:52 AM CDT) Result [facility] Provider MD LAB BLOOD ORDERABLES Karlee l Result Performing Organization Address [facility] de Phone Number EXTERNAL LAB * Vitamin D, 25-Hydroxy, Total (04/01/2025 8:52 AM CDT) Result [facility] Provider MD LAB BLOOD ORDERABLES Karlee l Result Performing Organization Address [facility] Co de Phone Number EXTERNAL LAB * A1C (manual) (04/01/2025 8:52 AM CDT) [facility] Provider MD LAB BLOOD ORDERABLES Karlee l Result Performing Organization Address [facility] Co de Phone Number EXTERNAL LAB * Iron profile w/ IBC (04/01/2025 8:52 AM CDT) Blood Result [facility] Provider MD LAB BLOOD ORDERABLES Karlee l Result Performing Organization Address [facility] de Phone Number EXTERNAL LAB * CBC without differential (04/01/2025 8:52 AM CDT) Blood Result [facility] Provider MD LAB BLOOD ORDERABLES Karlee l Result Performing Organization Address City/[facility] de Phone Number EXTERNAL LAB * Phosphorus (04/01/2025 8:52 AM CDT) Blood [facility] Provider MD LAB BLOOD ORDERABLES Karlee l Result Performing Organization Address City/[facility] de Phone Number EXTERNAL LAB * PTH (04/01/2025 8:52 AM CDT) Blood Result [facility] Provider MD LAB BLOOD ORDERABLES Karlee l Result Performing Organization Address [facility] de Phone Number EXTERNAL LAB * Albumin (04/01/2025 8:52 AM CDT) Blood Result [facility] Provider MD LAB BLOOD ORDERABLES Karlee l Result Performing Organization Address [facility] de Phone Number EXTERNAL LAB * (ABNORMAL) POCT hemoglobin A1c (02/22/2022 10:26 AM CDT) Pathologist [facility] Hemoglobin A1C, POC 6.8 Blood specimen (specimen) 02/22/2022 10:26 AM CDT Result [facility] Krista SEVERINO POINT OF CARE TEST ORDE RABLES Final Result * (ABNORMAL) eGFR (08/30/2021 9:53 PM MAT MACHINE TENDER) eGFR 7(L) 90 - 130 mL/min/1.7 3 m2 ELISEO [facility] Comment: Interpretive Data Reference Interval Normal >/= [...] last reviewed 2020 Blood 08/30/2021 9:53 PM MAT MACHINE TENDER 08/31/2021 1:30 AM MAT MACHINE TENDER Slava Lowe MD LAB BLOOD ORDERABLES Karlee mckeon Result [facility] Department [place] [address] * Hepatitis panel, acute (11/14/2020 10:19 AM MAT MACHINE TENDER) Hep A IgM Nonreactive Nonreactive [facility] Comment: Interpretive Data: If Hep A IgM Ab is reported as Equivocal, a new sample should be drawn in two weeks for testing. Current interpretive data was last revised on 20. Hep B core IgM Nonreactive Nonreactive [facility] [facility] Comment: Interpretive Data If HepB Core IgM Ab is reported as Equivocal, a new sample should be drawn in two weeks for testing. Current interpretive data was last revised on 20. Hep C Ab Nonreactive Nonreactive [facility] Comment: Interpretive Data Nonreactive: Antibodies [...] revised on 2020. HepBsAg Nonreactive Nonreactive [facility] Blood specimen (specimen) 11/14/2020 10:19 AM MAT MACHINE TENDER 11/14/2020 10:19 AM MAT MACHINE TENDER us Pierce Clark MD LAB MICROBIOLOGY - GENERAL ORDERABLES Final Result [facility] [address] [place] [address] * COLONOSCOPY (06/04/2020 4:03 PM CDT) Anatomical Region Laterality Modality Other Narrative Procedure Note Cruzito Benitez MD - 06/04/2020 4:03 PM CDT [facility] Patient Name: Fani Horton Procedure Date: 06/04/2020 4:03 PM Date of : 1960 Admit Type: Inpatient Age: 60 Gender: Female Attending MD: Cruzito Simms M.D. Room: [facility] OR POD 5 ROOM 224 [...] The scope was passed under direct vision.The [id number] Endoscope was introduced throughthe anus and advanced to the cecum, identified by appendiceal orifice and ileocecal valve. The colonoscopy was performed without difficulty. The patient tolerated the procedure well. The quality of the bowel preparation was evaluated using the BBPS (Doon Bowel Preparation Scale) with scores of:Right Colon [...] Endoscopy for promoting quality in endoscopy Cruzito iSmms MD ENDOSCOPY PROCEDURES Final Result * Lipid panel (06/03/2020 2:56 AM CDT) Cholesterol 163 30 - 199 mg/dL [facility] Comment: Interpretive Data Ages [...] on 2018. HDL 67 >=40 mg/dL [facility] Comment: Interpretive Data Ages < or [...] 2018. LDL, calculated 71 <=129 mg/dL [facility] Comment: Interpretive Data Ages < or [...] revised on 2018. Non-HDL Cholesterol 96 mg/dL [facility] Comment: Interpretive Data Ages < or = [...] last revised on 2018. Chol/HDL ratio 2 [facility] Blood specimen (specimen) 06/03/2020 2:56 AM CDT 06/03/2020 3:07 AM CDT Terence Mayen MD LAB BLOOD ORDERABLES Final Result [facility] Department [place] [address] from Last 3 Months or Most Recently Relevant to Health Maintenance Insurance MEDICARE [facility] Address: [facility] [id number] [place] [address] [facility] BL [place]ICE [place] C[place] [facility] MEDICARE SUPPLEMENT INSURANCE [place] MEDICARE 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 DIRECTIVE 05/31/2019 5:52 AM POWER OF TIP TESTER-MEDICAL ADVANCE DIRECTIVE 04/30/2019 7:33 PM POWER OF TIP TESTER-MEDICAL ADVANCE DIRECTIVE 04/24/2019 2:54 PM POWER OF TIP TESTER-MEDICAL * Full Code (Latest Code Status on [...] 6:22 PM 06/04/2020 2:56 PM Care Teams Master Esthetician Relationship Specialty Start Date End Date Marguerite Fuchs MD PCP - General Family Practice 10/27/20 Chelle Espinoza MD Referring Physician Endocrinology Diabetes & Metabolism 03/06/20 Aft, Cesilia Allen MD PhD Surgeon Surgical Oncology 11/18/21 [place] [id number] [address] Consulting Physician Nephrology 05/12/24 Catherine Cain PA [address] [facility] ENDOCRINOLOGY, [address] [address] Physician Exchange Engineer Physician Exchange Engineer 05/17/25
--- OUTSIDE RECORDS SUMMARY | 2025-06-06 10:58 | XMS_ITS | Encounter Summary ---
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 Author CCM Chronic Pain Care Plan Chronic Care Management On track(2024 8:11 AM CDT) No Ana Paula Talley RN Note: Problem: [...] on filedocumented in this encounter Care Teams Service Shop Foreman Relationship Specialty Start Date End Date Marguerite Fuchs MD PCP - General Family Practice 10/27/20 Chelle Espinoza MD Referring Physician Endocrinology Diabetes & Metabolism 03/06/20 Cesilia Aguilar MD PhD Surgeon Surgical Oncology 11/18/21 [place] [address] [facility] [address] [place] [address] Consulting Physician Nephrology 05/12/24 Catherine Cain PA [address] [facility] DIV IM ENDOCRINOLOGY, [facility] [address] [place] [address] Physician Rn New Grad Physician Rn New Grad 05/17/25 documented as of this encounter
--- OUTSIDE RECORDS SUMMARY | 2025-06-06 10:58 | XMS_ITS ---
Author Organization 1 OF [facility] Address [address] [address] Care Team Providers Care Grain Weigher Name Role Phone Marguerite Fuchs Primary Care Provider Un available Gutierrez Olivarez Unavailable [phone] REASON FOR VISIT DFC (Diabetic foot care) Encounters Encounter Location Date Provider Diagnosis 1 OF [facility] [address] [address] 02/27/2024 Gutierrez Olivarez Plan Of Treatment No Information Progress Notes * Fani HORTON MDOB: (65 yo F)Acc No.[id number]:02/27/2024 Progress Note Patient: Kya KERN Fani Moya Provider: Lupe Olivarez DPM :1960 A ge:64 Y S ex:Female Date:02/27/2024 Address:[address] [place], [place] [address] Pcp:Marguerite Fuchs Subjective: * Chief Complaints: * 1 . DFC (Diabetic foot care). * Medical History: Objective: * Vitals: Assessment: Plan: * Treatment: * Images: * Electronic signature of Gutierrez Olivarez DPM on 06/06/2025 at 10:58 AM CDT Sign off status: Pending * Provider: Lupe Olivarez DPM Date: 0 02/27/2024 Generated for Printi ng/Fajenniferg/eTransmitting on: 0 06/06/2025 10:58 AM CDT
--- OUTSIDE RECORDS SUMMARY | 2025-06-06 10:58 | XMS_ITS | Encounter Summary ---
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 Gender Identity Not on file Sexual Orientation [...] on filedocumented in this encounter Care Teams Unit Controller Relationship Specialty Start Date End Date Marguerite Fuchs MD PCP - General Family Practice 10/27/20 Chelle Espinoza MD Referring Physician Endocrinology Diabetes & Metabolism 03/06/20 Cesilia Aguilar MD PhD Surgeon Surgical Oncology 11/18/21 [place] [address] [facility] [address] [place] [address] Consulting Physician Nephrology 05/12/24 Catherine Cain PA [address] [facility] DIV IM ENDOCRINOLOGY, [facility] [address] [place] [address] Physician Neonatal Pediatric Nurse Physician Neonatal Pediatric Nurse 05/17/25 documented as of this encounter
--- OUTSIDE RECORDS SUMMARY | 2025-06-06 10:58 | XMS_ITS | Encounter Summary ---
Author Organization [facility] Address [address] [place] [address] Phone Care Team Providers Care Diamond Setter Apprentice Name Role Phone Josephine Acosta MD Primary Care Provider Chelle Espinoza MD Unavailable Sue Cummins RN Unavailable Marguerite Fuchs MD Primary Care Provider RehgNickie NP Unavailable Brennan Wesley MD Unavailable Aft, Cesilia Allen MD PhD Unavailable [phone] Peter Joe MD Unavailable [phone] Catherine Cain Unavailable Encounter Details Date Type [...] on file Legal Sex Female 3:06 AM SIZE MARKER Gender Identity Not on file Sexual Orientation [...] COVID: Suspected 11/09/2020 11/09/2020 11/09/2020 9:53 PM SIZE MARKER COVID19 11/09/2020 11/09/2020 12/01/2020 3:05 AM SIZE MARKER COVID: Recovered Comment:Added based on recent COVID infection. 12/01/2020 12/02/2020 03/31/2021 3:05 AM C DT documented as of this encounter Care Teams Diamond Setter Apprentice Relationship Specialty Start Date End Date Josephine Acosta MD PCP - General Family Medicine 07/02/19 10/26/20 Marguerite Fuchs MD [address] [address] PCP - General Family Practice 10/27/20 Chelle Espinoza MD Referring Physician Endocrinology Diabetes & Metabolism 03/06/20 Sue Cummins, RN [address] [place] [address] SHOP Outpatient Nuclear Powerplant Supervisor 06/05/20 07/06/20 Nickie Tidwell NP [address] [place] [address] Nurse Practitioner Nurse Practitioner 03/16/21 02/07/24 Brennan Wesley MD [address] [place] [address] Referring Physician Nephrology 03/16/21 05/11/24 Aft, Cesilia Allen MD PhD [address] [place] [address] Surgeon Surgical Oncology 11/18/21 [place] [address] [facility] [address] [place] [address] Consulting Physician Nephrology 05/12/24 Catherine Cain PA [address] [facility] DIV IM ENDOCRINOLOGY, [facility] [address] [place] [address] Physician Soft Mud Molder Physician Soft Mud Molder 05/17/25 documented as of this encounter
--- OUTSIDE RECORDS SUMMARY | 2025-06-06 10:58 | XMS_ITS | Clinical Summary ---
Author Organization [facility] Address [address] [place] [address] Care Team Providers Care Hearings Reporter Name Role Phone Unavailable Primary Care Provider [...]
--- OUTSIDE RECORDS SUMMARY | 2025-06-06 10:58 | XMS_ITS | Clinical Summary ---
Author Organization [facility] Address [address] [place] [address] Phone Care Team Providers Care Supervisor Wash House Name Role Phone Unavailable Primary Care Provider Unavailabl e Encounters Date Type Department Care Team Description 04/05/2025 Orders Only [facility] [address] [facility], [address] [place], [place] [id number] Lizz Rider NP from Last 3 Months [...] 1979 Influenza Vaccine (#1) 2025 Insurance MEDICARE [facility]
--- OUTSIDE RECORDS SUMMARY | 2025-06-06 10:58 | XMS_ITS | Encounter Summary ---
Author Organization [facility] Address [address] [place] [address] Care Team Providers Care Audio Narrator Name Role Phone Chelle Espinoza MD Unavailable Marguerite Fuchs MD Primary Care Provider Aft, Cesilia Allen MD PhD Unavailable Peter Joe MD Unavailable Catherine Cain Unavailable Reason for Visit * Reason Comments Foot Pain Encounter Details Date Type Department Care Team (Late st Contact Info) Description 06/04/2025 7:51 AM CDT - 06/04/2025 11:59 PM CDT Hospital Encounter [facility] [place] [facility] [address] [place] [address] Advanced Medicine [address] [place] [address] Rn, [facility] Diabetic peripheral neuropathy (HCC) (Primary Dx) Discharge Disposition: Discharge to home or self care Social History Tobacco Use Types Packs/Day Years [...] the money to buy more. 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 Never 06/04/2025 8:12 AM AMPAROT Amelia Wharton RN Q2: How many drinks containing alcohol do you have on a typical day when you are drinking? Patient does not drink 06/04/2025 8:12 AM AMPAROT Akiko, Amelia M., RN Q3: How often do you have six or more drinks on one occasion? Never 06/04/2025 8:12 AM AMPAROT Amelia Wharton RN documented as of this encounter Medications at Time of Discharge acetaminophen 325 mg capsule Take 2 capsules (650 mg total) by mouth every 6 (six) hours as needed (pain) albuterol HFA (PROVENTIL HFA,VENTOLIN HFA,PROAIR HFA) 90 mcg/actuation inhaler Inhale 1 puff every 4 (four) hours as needed for wheezing or shortness of breath 9 allopurinol (ZYLOPRIM) 100 mg tabletIndications:prev ention of acute gout attack Take 1 tablet (100 mg total) by mouth daily 30 tablet 9 artificial tears,hypromellose, 0.3 % drops Administer 1 drop into affected eye(s) as needed (dry eye) aspirin 81 mg enteric coated tabletIndications:prev ention of thrombosis Take 1 tablet (81 mg total) by mouth daily before breakfast betamethasone dipropionate (DIPROLENE) 0.05 % lotion Apply topically as needed calcitRIOL (ROCALTROL) 0.5 mcg capsule Take by mouth cetirizine (ZyrTEC) 10 mg tabletIndications:Anthony rgic Rhinitis Take 1 tablet (10 mg total) by mouth daily before breakfast diphenhydrAMINE (BENADRYL) 25 mg capsule Take 1 tablet/capsule (25 mg total) by mouth every 6 (six) hours as needed for itching ezetimibe (ZETIA) 10 mg tabletIndications:hype rlipidemia Take 1 tablet (10 mg total) by mouth daily before breakfast 2 ferric citrate (Auryxia) 210 mg iron tabletIndications:Sobia l Osteodystrophy with Hyperphosphatemia Take 1 tablet (210 mg total) by mouth daily before breakfast 2 ferric gluconate (FERRLECIT) 62.5 mg/5 mL injectionIndications: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 42 mL 2 5 insulin lispro-aabc (LYUMJEV) 100 unit/mL pen for injectionIndications:T ype 2 diabetes mellitus with complication, with long-term current use of insulin ([facility]) Inject 24-29 units with breakfast, 38-32 units with lunch and dinner and 5 units with snacks. Max TDD 110 units daily 99 mL 2 5 lidocaine-prilocaine cream Apply TO dialysis access 1 hour prior TO treatment 1 midodrine (PROAMATINE) 5 mg tabletIndications:Symp tomatic Orthostatic Hypotension Take 1 tablet (5 mg total) by mouth 3 (three) times a week [address] (PROTONIX) 40 mg EC tabletIndications:Stre ss Ulcer Prophylaxis Take 1 tablet (40 mg total) by mouth every morning 8 paricalcitoL (ZEMPLAR) 2 mcg capsuleIndications:Hyp erparathyroidism Secondary to Chronic Renal Failure Take 1 capsule (2 mcg total) by mouth 3 (three) times a week Take with dialysis Mon, Mon, Mon 2 pen needle, diabetic 31 gauge x 3/16 needleIndications:Type 2 diabetes mellitus with complication, with long-term current use of insulin ([facility]) Use with insulin injections 4 times daily 400 each 3 2 pregabalin (LYRICA) 50 mg capsuleIndications:ner ve pain Take 1 capsule (50 mg total) by mouth nightly TAKE 1 CAPSULE BY MOUTH ONCE DAILY TAKE ADDITIONAL DOSE AFTER DIALYSIS ON MONDAY, Y AND MONDAY 120 capsule 2 5 08/14/20 25 semaglutide (OZEMPIC) 0.25 mg or 0.5 mg (2 mg/3 mL) pen injector injectionIndications:T ype 2 diabetes mellitus with complication, with long-term current use of insulin (HCC) Inject 0.5 mg under the skin once a week 2 mL 5 tirzepatide (Mounjaro) 2.5 mg/0.5 mL pen injector injectionIndications:T ype 2 diabetes mellitus with complication, with long-term current use of insulin (HCC),Class 3 severe obesity due to excess calories with serious comorbidity and body mass index (BMI) of 60.0 to 69.9 in adult Inject 0.5 mL (2.5 mg total) under the skin every 7 days 6 mL 2 5 vitamin B complex with C-folic acid (NEPHROCAP) 1 mg capsuleIndications:Vit benitez Deficiency Prevention Take 1 capsule by mouth daily before breakfast documented as of this encounter Discharge Disposition Disposition Code Departure Means Destination Discharge to home or self care documented in this encounter Progress Notes * Amelia Wharton RN - 06/04/2025 9:00 AM CDT Qutenza (Capsaicin 8%) Procedure Note Plan: Length of time patch to be on treatment area for 30 minutes [x] Diabetic Peripheral Neuropathy [] Chemotherapy related Peripheral Neuropathy [] Idoiopathic Peripheral Neuropathy [] Post Operative Peripheral Neuropathy [] Neuropathy Pre Pain Score: 2 out of 10. [] Left [] Right [x] Bilateral [] Burning [] Tingling [] Stabbing [] Numbness Other: Pre Assessment of Skin prior to Qutenza application 1. Location where Qutenza patch will be applied: bilateral feet 2. Description of skin: [x] Clean [x] Dry [x] Intact [x] Color appropriate to ethnicity 3. Treatment area cleaned with mild soap and water, and dried thoroughly Patch Applied : Mask and Goggles applied to patient and nurse prior to application of patch 4. Qutenza patch applied to area of the skin . # of patches applied [] 1 patch [] 2 patches [] 3 patches [x] 4 patches 5. Area wrapped with self adhesive tape to ensure Qutenza maintains contact with the treatment area. Time Removed Patch 0855, 0858 Cleansing Gel 6. Applied cleaning gel to treatment area for 2 minute 7. Removed Cleansing Gel with dry towel and gently washed the area with mild soap and water. Dried thoroughly. Post Assessment of Skin after Qutenza patch removed: 8. Description of skin: [x] Clean [x] Dry [x] Intact [x] Color appropriate to ethnicity Total time patch was on treatment area 30 minutes Post Pain Score: 0.5 out of 10. [] Burning [] Tingling [] Stabbing [] Numbness Other: Patient response to treatment: good, helpful, less burning * Amelia Wharton RN - 06/04/2025 9:00 AM CDT Level 5 Escorted patient to exam room. Obtained vital signs. Reviewed patient's allergies and current medications. Obtained and verified patient's complex medical/surgical history. Confirmed the reason for visit with the patient. Obtained the following screening assessments: [x] Modified Oswestry Low Back Pain Questionnaire [] PMC Intake Questionnaire [x] PMC Follow up Questionnaire [] Fall Risk Assessment (Irene Toro Steadi) [] Depression/Anxiety Assessment (GAD7, PHQ-9, [place] Suicide, Gibbons Depression) [] Disability Scale [] CAGE [] SOAPP-R Additional tasks included: [] Random medication adherence check (pill verification by two nurses) [] Work/school note written [] Wound/skin check/dressing change [] Pain assessment for more than one site [] Coordination of multiple or complex referrals or imaging studies [] Anticoagulant therapy coordination on day of visit [] Monitoring or assistance in patient physical exam or assessment [] Expanded evaluation and/or monitoring of vital signs [] Administration of medication by the clinical staff [] Specimen/lab preparation and collection [] Emergency medical care or intervention [] Call an ACT, GOVERNMENT AFFAIRS DIRECTOR, or transfer to a higher level of care [] Coordination of direct admission or urgent/emergent surgery [x] Qutenza DX: Diabetic peripheral neuropathy Vital Signs Temp: 97.1 ??F (36.2 ??C) Pulse: 100 Resp: 22 BP: 138/57 SpO2: 92 % Post-visit transport confirmed with the patient. Total time spent for patient care, education, and care coordination was approximately greater than 41 minutes. documented in this encounter Plan of Treatment Not on file documented as of this encounter Goals Goal Patient Goal Type Associated Problems Recent Progress Patient-Stated? Author CCM Chronic Pain Care Plan Chronic Care Management On track(2024 8:11 AM CDT) Ana Paula Hoff, RN Note: Problem: Chronic Pain Goals: 1. Minimize further functional decline 2. Maximize quality of life 3. Control pain Strategies: - Activity/exercise program recommendation - Conservative stepwise pain medicine strategy with multi-disciplinary approach - Recommend healthy lifestyle strategies and compensatory methods as needed documented as of this encounter Visit Diagnoses Diagnosis Diabetic peripheral neuropathy (HCC)- Primary Type II or unspecified type diabetes mellitus with neurological manifestations, not stated as uncontrolled documented in this encounter Administered Medications Inactive Administered Medications - up to 3 most recent administrations Medication Order MAR Action Action Date Dose Rate Site capsaicin (QUTENZA) 8 % patch 4 patch 4 patch, topical, Once, On Mon06/04/25 at 0845, For 1 dose, Cleanse and dry the application area thoroughly prior to application. Topical local anesthesia utilization with subsequent removal/drying is recommended prior to 8% Capsaicin. PPE including nitrile gloves and face/eye protection (at minimum) should be utilized by healthcare team applying patch., Apply to affected area: foot, Laterality: BilateralIndications:Di abetic peripheral neuropathy (HCC) Medication Applied 06/04/2025 8:25 AM CDT 4 patches Left Foot documented in this encounter Orders Medications Ordered That Kevin ht Not Have Been Administered Count Last Ordered Date First Ordered Date capsaicin (QUTENZA) 8 % patch 4 patch 1 documented in this encounter Care Teams Audio Narrator Relationship Specialty Start Date End Date Marguerite Fuchs MD PCP - General Family Practice 10/27/20 Chelle Espinoza MD Referring Physician Endocrinology Diabetes & Metabolism 03/06/20 Aft, Cesilia Allen MD PhD Surgeon Surgical Oncology 11/18/21 [place] [address] [address] Consulting Physician Nephrology 05/12/24 Catherine Cain PA [address] [facility] ENDOCRINOLOGY, [address] [address] Physician Distribution Warehouse Manager Physician Distribution Warehouse Manager 05/17/25 documented as of this encounter
--- OUTSIDE RECORDS SUMMARY | 2025-06-06 10:58 | XMS_ITS ---
Author Organization 1 OF [facility] Address [address] [address] Care Team Providers Care [employer] Internship Name Role Phone Marguerite Fuchs Primary Care Provider Un available Gutierrez Olivarez Unavailable [phone] REASON FOR VISIT DFC (Diabetic foot care) Encounters Encounter Location Date Provider Diagnosis 1 OF [facility] [address] [facility] [address] [place] [address] 04/02/2024 Gutierrez Olivarez Plan Of Treatment No Information Progress Notes * Fani HORTON MDOB: (65 yo F)Acc No.[id number]:04/02/2024 Progress Note Patient: Kya KERN Fani Moya Provider: Lupe Olivarez DPM :1960 A ge:64 Y S ex:Female Date:04/02/2024 Address:[address] [place], [place] [address] Pcp:Marguerite Fuchs Subjective: * Chief Complaints: * 1 . DFC (Diabetic foot care). * Medical History: Objective: * Vitals: Assessment: Plan: * Treatment: * Images: * Electronic signature of Gutierrez Olivarez DPM on 06/06/2025 at 10:57 AM CDT Sign off status: Pending * Provider: Lupe Olivarez DPM Date: 0 04/02/2024 Generated for Printi ng/Fajenniferg/eTransmitting on: 0 06/06/2025 10:57 AM CDT
--- OUTSIDE RECORDS SUMMARY | 2025-06-06 10:58 | XMS_ITS | Encounter Summary ---
Author Organization [facility], [facility] Address [address] [place] [address] Phone Care Team Providers Care Cell Repairer Name Role Phone Chelle Espinoza MD Unavailable [phone] Marguerite Fuchs MD Primary Care Provider Aft, Cesilia Allen MD PhD Unavailable Peter Joe MD Unavailable [phone] Catherine Cain Unavailable Encounter Details Date Type Department Care Team (Late st Contact Info) Description 06/02/2025 Results Follow-Up [facility] Endocrinology Metabolism and Lipid [address] [facility] Advanced [facility] 13th [place] [address] [place] [id number] Catherine Cain PA [address] [place] [address] Diabetes Mellitus Type 1 Evaluation Social History Tobacco Use Types Packs/Day Years [...] on file 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 Never 06/04/2025 8:12 AM Amelia Walden RN Q2: How many drinks containing alcohol do you have on a typical day when you are drinking? Patient does not drink 06/04/2025 8:12 AM Amelia Walden RN Q3: How often do you have six or more drinks on one occasion? Never 06/04/2025 8:12 AM Amelia Walden, DAVID documented as of this encounter Plan of Treatment Not on file documented as of this encounter Goals Goal Patient Goal Type Associated Problems Recent Progress Patient-Stated? Author [facility] Chronic Pain Care Plan Chronic Care Management [...] documented as of this encounter Visit Diagnoses Not on filedocumented in this encounter Care Teams Cell Repairer Relationship Specialty Start Date End Date Marguerite Fuchs MD PCP - General Family Practice 10/27/20 Chelle Espinoza MD Referring Physician Endocrinology Diabetes & Metabolism 03/06/20 Aft, Cesilia Allen MD PhD Surgeon Surgical Oncology 11/18/21 [place] [id number] [id number] Consulting Physician Nephrology 05/12/24 Catherine Cain PA [address] [facility], [address] [id number] Physician Deck Lid Fitter Physician Deck Lid Fitter 05/17/25 documented as of this encounter
--- OUTSIDE RECORDS SUMMARY | 2025-06-06 10:59 | XMS_ITS | Continuity of Care Document ---
Author Organization [facility] Address [address] [facility] [address] [place] [address] Phone Care Team Providers Care Data Architect Manager Name Role Phone Francois Stout Unavailable Unavailable [...] Diagnoses Date Provider Providers Copied on Encounter [facility], [id number] [place] [address] [address], [place], [place], [address], [place] tel:[phone] [facility] No Information 0201 0 Argelia Parrish. [address] [address], [place], [address], [place]. tel:[phone] Referring Provider: Francois conner [address] [facility] [address], [place], [address]. tel:[phone] [facility], [address], [place], [place], [address], [place] tel:[phone] [facility] No Information Gabe-2 0-201 0 Krishnasamy Francois. [address] [facility] [address], [place], [address], [place]. tel:[phone] Office/outpat ient Visit, Est [facility], [address], [place], [place], [address], [place] tel:[phone] [facility] No Information Dec-3 0-201 0 Krishnasamy Francois. [address] [facility] [address], [place], [facility], [place]. tel:[phone] [facility], [address], [place], [place], [address], [place] tel:[phone] [facility] No Information 3 1-200 9 Krishnasamy Francois. [address] [place] [address], [facility], [place]. tel:[phone] Referring Provider: Francois conner, [address] [place], [place] [address], [facility]. tel:[phone] [facility], [address], [place], [place], [address], [place] tel:[phone] [facility] [place] No Information Apr-2 8-200 9 Krishnasamy Francois. [address] [place] [address], [facility], [place]. tel:[phone] [facility], [address], [place], [place], [address], [place] tel:[phone] [facility] [place] No Information Apr-2 2-200 8 Krishnasamy Francois. [address] [place], [place] [address]ate [address], [facility], [place]. tel:[phone] [facility], [address], [place], [place], [address], [place] tel:[phone] [facility] No Information Sep- 2-200 6 Mabry AMI Pratt. [address] [facility] , [address], [place], [address], . tel:[phone] Referring Provider: Terence Boland, [address] [facility] [address], [place], [address]. tel:[phone] Family History Family Member Type Diagnosis Age [...]
--- OUTSIDE RECORDS SUMMARY | 2025-06-06 10:59 | XMS_ITS | Clinical Summary ---
Author Organization [facility] Address [address] [place] [address] Care Team Providers Care Senior Ui Web Developer Name Role Phone Cory Ramirez MD Primary Care Provider [phone] Allergies Active Allergy Reactions Criticality Noted Date [...] patient's age to complete this topic Insurance [facility] Care Teams Senior Ui Web Developer Relationship Specialty Start Date End Date Cory Ramirez MD [address] [phone] PCP - General INTERNAL MEDICINE 05/28/18
--- OUTSIDE RECORDS SUMMARY | 2025-06-06 11:00 | XMS_ITS | Continuity of Care Document ---
Author Organization [facility] Address [address] [place] [address] Phone Care Team Providers Care Company Marker Name Role Phone Jaya Hussein Unavailable Unava [...] Diagnoses Date Provider Providers Copied on Encounter [facility] , [address], [place], [place], [address], tel:[phone] [facility] Encounter for dental exam and cleaning w/o abnormal findings Jassi Lake. [address], [place], [place], [address]. tel:[phone] Referring Provider: Slava Cortez, [address], [place], [address] . tel:[phone] [facility] , [address], [place], [place], [address], tel:[phone] [facility] Encounter for dental exam and cleaning w abnormal findings Sarah Mckee. [address], [place], [place], [address]. tel:[phone] Referring Provider: Sonya Bell, [address], [place], [address] . tel:[phone] [facility] , [address], [place], [place], [address], tel:[phone] [facility] [place] Encounter for dental exam and cleaning w/o abnormal findings Sarah Mckee. [address], [place], [place], [address]. tel:[phone] [facility] , [address], [place], [place], [address], [place] tel:[phone] Care Guidelines No Information Family History Family Member Type Diagnosis Age At Onset No Information Payers Payer name Insurance type Covered alliance party ID Spencer franz(xin) [facility] [id number] Social History Type Description Quantity Date Captured [...]
[2025-06-06 13:37] LABS: Glucose 202 mg/dL (65-110)
== END 2025-06-06 10:50 | disposition home or self-care (01) ==
LOC: ANHGOSHLAB 10:51
PROVIDERS: PCP Family Medicine
DX: E11.8 Type 2 diabetes mellitus with unspecified complications (principal); Z79.4 Long term (current) use of insulin
CPT/HCPCS: 36415; 82947; 84681

== ENCOUNTER 2025-07-28 15:39 | Outpatient (CLI) | payer MEDICARE, SELFPAY ==
--- OUTSIDE RECORDS SUMMARY | 2010-05-21 07:30 | XMS_ITS | Continuity of Care Document ---
Author Organization [facility] Address [address] [facility] [address] [place] [address] Phone Care Team Providers Care Flare Breaker Name Role Phone Francois Stout Unavailable Unavailable Procedures Procedure Date Visual Field Examination(s) Eye Exam & Treatment Refraction Office/outpatient Visit, Est Visual Field Examination(s) Eye Exam & Treatment Eye Exam & Treatment Refraction Optic Nerve Topography Optic Nerve Topography Advance Directives Directive Yes / No Effective Date File Name No Information Encounters Encounter Description Practice Location Reason(s) For Visit Diagnoses Date Provider Providers Copied on Encounter [facility], [id number] [place] [address] [address], [place], [place], [id number], [place] tel:[phone] [facility] No Information 0201 0 Argelia Parrish. [address] [address], [place], [address], [place]. tel:[phone] Referring Provider: Francois conner [address] [facility] [address], [place], [address]. tel:[phone] [facility], [address], [place], [place], [id number], [place] tel:[phone] [facility] No Information Gabe-2 0-201 0 Krishnasamy Francois. [address] [facility], [place], [address], [place]. tel:[phone] Office/outpat ient Visit, Est [facility], [address], [place], [place], [id number], [place] tel:[phone] [facility] No Information Dec-3 0-201 0 Krishnasamy Francois. [address] [facility], [place], [place], [facility], [place]. tel:[phone] [facility], [address], [place], [place], [id number], [place] tel:[phone] [facility] No Information 3 1-200 9 Krishnasamy Francois. [address] [place] [address], [facility], [place]. tel:[phone] Referring Provider: Francois conner, [address] [place], [place] [address]ate [address], [facility]. tel:[phone] [facility], [address], [place], [place], [id number], [place] tel:[phone] [facility] [place] No Information Apr-2 8-200 9 Krishnasamy Francois. [address] [place] [address], [facility], [place]. tel:[phone] [facility], [address], [place], [place], [id number], [place] tel:[phone] [facility] [place] No Information Apr-2 2-200 8 Krishnasamy Francois. [address] [place], [place] [address] [address], [facility], [place]. tel:[phone] [facility], [address], [place], [place], [id number], [place] tel:[phone] [facility] No Information Sep- 2-200 6 Mabry AMI Pratt. [address] [facility] , [address], [place], [address], . tel:[phone] Referring Provider: Terence Boland, [address] [facility] [address], [place], [address]. tel:[phone] Family History Family Member Type Diagnosis Age At Onset No Information Payers Payer name Insurance type Covered democrat ID Authoriza tion(s) No Information Social History Type Description Quantity Date Captured Comments Sex Female Smoking Status No Information Chief Complaint And Reason For Visit No Information Reason For Referral Reason For Referral No Information History Of Present Illness Encounter Date Complaint History Of Prese nt Illness No Information Functional Status Date Functional Assessmen t No Information Instructions Date Instruction Additional Infor mation No Information Assessments Type Assessment Date No Information Patient Care Teams Name Effective Dates (start - stop) Status Members No Information
--- OUTSIDE RECORDS SUMMARY | 2024-04-02 04:00 | XMS_ITS ---
Author Organization 1 OF [facility]on [facility] Address [address] [place] [address] Care Team Providers Care Communication Spec Name Role Phone Marguerite Fuchs Primary Care Provider Un available Gutierrez Olivarez Unavailable [phone] REASON FOR VISIT DFC (Diabetic foot care) Encounters Encounter Location Date Provider Diagnosis 1 [facility] [address] [facility] [address] [place] [address] 04/02/2024 Gutierrez Olivarez Plan Of Treatment No Information Progress Notes * Fani HORTON MDOB: (65 yo F)Acc No.[id number]:04/02/2024 Progress Note Patient: Kya murdock Fani Moya Provider: Lupe Olivarez DPM :1960 A ge:64 Y S ex:Female Date:04/02/2024 Address:[address] [place], [place] [id number] Pcp:Marguerite Fuchs Subjective: * Chief Complaints: * D FC (Diabetic foot care) * Electronic signature of Gutierrez Olivarez DPM on 07/28/2025 at 04:05 PM CDT Sign off status: Pending * Provider: Lupe Olivarez DPM Date: 0 04/02/2024 Generated for Printi ng/Faxing/eTransmitting on: 1 04:05 PM CDT
--- OUTSIDE RECORDS SUMMARY | 2025-07-21 02:15 | XMS_ITS | Continuity of Care Document ---
Author Organization [facility] Address [address] [place] [address] Phone Care Team Providers Care Dining Room Host Name Role Phone Link Joshi Unavailable Unavailable Procedures Procedure Date Screening For Sleep Apnea Substance Use Risk Assessment Oral Cancer Risk Assessment Periodontal Risk Assessment Oral/facial 2D photo images Office Visit (No Chrg) Transfer Exam Dental Bitewings Radiographic, Four Imag es Periodic Oral Evaluation-Established Pt Limit Oral Evaluation- problem focused M Caries Risk Assess & Doc High Risk Jun- Periodontal Risk Assessment Comprehensive Oral Evaluation-New/Est Pt Dental Panoramic Radiographic Image Oral/facial 2D photo images Diagnostic Casts No Charge Periodontal Risk Assessment Oral Cancer Risk Assessment Intra-Oral - Complete Series Of Radiogra phic Images Advance Directives Directive Yes / No Effective Date File Name No Information Encounters Encounter Description Practice Location Reason(s) For Visit Diagnoses Date Provider Providers Copied on Encounter [facility] , [address], [place], [place], [address], tel:[phone] [facility] Encounter for dental exam and cleaning w abnormal findings Madelyn Maza. [address], [place], [place], [address]. tel:[phone] Referring Provider: Sonya Bell, [address], [place], [address] . tel:[phone] [facility] , [address], [place], [place], [address], [place] tel:[phone] [facility] Encounter for dental exam and cleaning w abnormal findings Madelyn Leen. [address], [place], [place], [address]. tel:[phone] Referring Provider: Sonya Bell, [address], [place], [address] . tel:[phone] [facility] , [address], [place], [place], [address], [place] tel:[phone] [facility] Encounter for dental exam and cleaning w/o abnormal findings Jassi Lake. [address], [place], [place], [address]. tel:[phone] Referring Provider: Slava Cortez, [address], [place], [address] . tel:[phone] [facility] , [address], [place], [place], [address], [place] tel:[phone] [facility] Encounter for dental exam and cleaning w abnormal findings Sarah Mckee. [address], [place], [place], [address]. tel:[phone] Referring Provider: Sonya Bell, [address], [place], [address] . tel:[phone] [facility] , [address], [place], [place], [address], [place] tel:[phone] [facility] Encounter for dental exam and cleaning w/o abnormal findings Sarah Mckee. [address], [place], [place], [address]. tel:[phone] [facility] , [address], [place], [place], [address], [place] tel:[phone] Care Guidelines No Information Family History Family Member Type Diagnosis Age At Onset No Information Payers Payer name Insurance type Covered alliance party ID Spencer franz(s) [facility] [id number] Social History Type Description Quantity Date Captured Comments Sex Female Smoking Status No Information Chief Complaint And Reason For Visit No Information Reason For Referral Reason For Referral No Information Plan Of Treatment Date Type Action Status Appointment Fani Horton BOOKED History Of Present Illness Encounter Date Complaint History Of Prese nt Illness No Information Functional Status Date Functional Assessmen t No Information Instructions Date Instruction Additional Infor mation No Information Assessments Type Assessment Date No Information Patient Care Teams Name Effective Dates (start - stop) Status Members No Information
--- OUTSIDE RECORDS SUMMARY | 2025-07-28 16:04 | XMS_ITS | Clinical Summary ---
Author Organization [facility] Address [address] [place] [address] Phone Care Team Providers Care Crna Name Role Phone Unavailable Primary Care Provider Unavailabl e Medications midodrine (PROAMATINE) 5 MG tablet Take 1 tablet (5 mg total) by mouth 3 (three) times a week Prior to dialysis 60 tablet 3 07/14/2025 Active Encounters Date Type Department Care Team Description 07/12/2025 Orders Only [facility] [address] [place] [address] Lizz Rider NP from Last 3 Months [...] 1979 Influenza Vaccine (#1) 2025 Insurance MEDICARE [facility]
--- OUTSIDE RECORDS SUMMARY | 2025-07-28 16:07 | XMS_ITS ---
Author Organization [facility] Address [address] [place] [id number] Care Team Providers Care Back Tacker Name Role Phone Chelle Espinoza MD Unavailable [phone] Marguerite Fuchs MD Primary Care Provider Aft, Cesilia Allen MD PhD Unavailable Peter Joe MD Unavailable [phone] [facility] [phone] Dialysis Access Sites Type Status Location Placement Date Removal Da te AV graft Active Left Upper Arm - Anterior 05/28/2019 Hemodialysis Catheter Tunneled catheter Internal Jugular Inactive Right Neck (side) - Anterior 04/23/2019 07/18/2019 Hemodialysis Cath Triple Inactive Right N ander (side) - Anterior 04/19/2019 04/23/2019 Procedures Procedure Name Priority Date/Time Associated Diagnosis Comments GLUCOSE, RANDOM Routine 06/09/2025 8:51 AM CDT Type 2 diabetes mellitus with complication, with long-term current use of insulin (HCC) C-PEPTIDE Routine 06/06/2025 11:25 AM CDT Type 2 diabetes mellitus with complication, with long-term current use of insulin (HCC) DIABETES MELLITUS TYPE 1 EVALUATION Routine 06/02/2025 4:16 PM CDT Type 2 diabetes mellitus with complication, with long-term current use of insulin (HCC) SCREENING MAMMOGRAM BILATERAL W KODAK Schedule Routine, Read Routine (OP Routine) 05/26/2025 9:00 AM CDT Screening mammogram, encounter for POCT HEMOGLOBIN A1C Routine 02/22/2022 1 0:26 AM CDT Type 2 diabetes mellitus with complication, with long-term current use of insulin (HCC) EGFR STAT 08/30/2021 9:53 PM UX INFORMATION ARCHITECT HEPATITIS PANEL, ACUTE STAT 11/14/2020 10:19 AM UX INFORMATION ARCHITECT COLONOSCOPY 06/04/2020 4:03 PM CDT LIPID PANEL [...] mg EC tabletIndications:St ress Ulcer Prophylaxis Take 20 mg by mouth every morning Per pt. 018 Active allopurinol (ZYLOPRIM) 100 mg tabletIndications:pr evention of acute gout attack Take 1 tablet (100 mg total) by mouth daily 30 tablet 019 Active aspirin 81 mg enteric coated tabletIndications:pr evention of thrombosis Take 1 tablet (81 mg total) by mouth daily before breakfast Active vitamin B complex with C-folic acid (NEPHROCAP) 1 mg capsuleIndications:V itamin Deficiency Prevention Take 1 capsule by mouth daily before breakfast Active lidocaine-prilocaine cream Apply TO dialysis access 1 hour prior TO treatment Active artificial tears,hypromellose, 0.3 % drops Administer 1 drop into affected eye(s) as needed (dry eye) Active ferric gluconate (FERRLECIT) 62.5 mg/5 mL injectionIndications :Anemia in Hemodialysis-Depende nt Chronic Kidney Disease Infuse 5 mL (62.5 mg of elemental iron total) IV 3 (three) times a week Active betamethasone dipropionate (DIPROLENE) 0.05 % lotion Apply topically as needed Active diphenhydrAMINE (BENADRYL) 25 mg capsule Take 1 tablet/capsu le (25 mg total) by mouth every 6 (six) hours as needed for itching Active ezetimibe (ZETIA) 10 mg tabletIndications:hy perlipidemia Take 1 tablet (10 mg total) by mouth daily before breakfast 022 Active pen needle, diabetic 31 gauge x 3/16 needleIndications:Ty pe 2 diabetes mellitus with complication, with long-term current use of insulin ([facility]) Use with insulin injections 4 times daily 400 each 3 022 Active paricalcitoL (ZEMPLAR) 2 mcg capsuleIndications:H yperparathyroidism Secondary to Chronic Renal Failure Take 1 capsule (2 mcg total) by mouth 3 (three) times a week Take with dialysis Mon, Mon, Mon 022 Active ferric citrate (Auryxia) 210 mg iron tabletIndications:Re nal Osteodystrophy with Hyperphosphatemia Take 1 tablet (210 mg total) by mouth daily before breakfast 022 Active midodrine (PROAMATINE) 5 mg tabletIndications:Sy mptomatic Orthostatic Hypotension Take 1 tablet (5 mg total) by mouth 3 (three) times a week 024 Active cetirizine (ZyrTEC) 10 mg tabletIndications:Al lergic Rhinitis Take 1 tablet (10 mg total) by mouth daily before breakfast Active calcitRIOL (ROCALTROL) 0.5 mcg capsule Take by mouth Active insulin glargine (TOUJEO) 300 unit/mL (1.5 mL) pen for injectionIndications :Type 2 diabetes mellitus with complication, with long-term current use of insulin ([facility]) Inject 44 units under the skin daily. 42 mL 2 025 Active glucagon (BAQSIMI) 3 mg/actuation spray,non-aerosolInd ications:Type 2 diabetes mellitus with complication, with long-term current use of insulin ([facility]) Administer 1 spray into one nostril as needed (severe hypoglycemia ) 2 each 3 025 Active pregabalin (LYRICA) 50 mg capsuleIndications:n erve pain Take 1 capsule (50 mg total) by mouth nightly TAKE 1 CAPSULE BY MOUTH ONCE DAILY TAKE ADDITIONAL DOSE AFTER DIALYSIS ON MONDAY, AND MONDAY 120 capsule 2 025 2024 Active insulin lispro-aabc (LYUMJEV) 100 unit/mL pen for injectionIndications :Type 2 diabetes mellitus with complication, with long-term current use of insulin ([facility]) Inject 24-29 units with breakfast, 38-32 units with lunch and dinner and 5 units with snacks. Max TDD 110 units daily 99 mL 2 025 Active insulin production control specialist cart,aut,G6/7,cntr (Omnipod 5 G6-G7 Intro Kt,Gen5,) cartridgeIndications :Type 2 diabetes mellitus with complication, with long-term current use of insulin ([facility]) To change POD every 3 days 1 each 025 Active insulin pump cart,auto,BT,G6/7 (Omnipod 5 G6-G7 Pods, Gen 5,) cartridgeIndications :Type 2 diabetes mellitus with complication, with long-term current use of insulin ([facility]) To change POD every 3 days 10 each 6 025 Active semaglutide (OZEMPIC) 0.25 mg or 0.5 mg (2 mg/3 mL) pen injector injectionIndications :type 2 diabetes mellitus Inject 0.5 mg under the skin once a week 2 mL 11 025 Active acetaminophen 325 mg capsule Take 2 capsules (650 mg total) by mouth every 6 (six) hours as needed (pain) 2024 Discontinued(P atient Reported) albuterol HFA (PROVENTIL HFA,VENTOLIN HFA,PROAIR HFA) 90 mcg/actuation inhaler Inhale 1 puff every 4 (four) hours as needed for wheezing or shortness of breath 019 2024 Discontinued(P atient Reported) tirzepatide (Mounjaro) 2.5 mg/0.5 mL pen injector injectionIndications :Type 2 diabetes mellitus with complication, with long-term current use of insulin (HCC),Class 3 severe obesity due to excess calories with serious comorbidity and body mass index (BMI) of 60.0 to 69.9 in adult Inject 0.5 mL (2.5 mg total) under the skin every 7 days 6 mL 2 025 2024 Discontinued(P atient Reported) semaglutide (OZEMPIC) 0.25 mg or 0.5 mg (2 mg/3 mL) pen injector injectionIndications :Type 2 diabetes mellitus with complication, with long-term current use of insulin (HCC) Inject 0.5 mg under the skin once a week 2 mL 025 2024 Discontinued(R eorder) semaglutide (OZEMPIC) 0.25 mg or 0.5 mg (2 mg/3 mL) pen injector injectionIndications :type 2 diabetes mellitus Inject 0.5 mg under the skin once a week 2 mL 11 025 2024 Discontinued Active Problems Problem Noted Date Diagnosed Date Spondylosis of lumbar region without myelopathy or radiculopathy 10/07/2022 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 Assessment & Plan (10/26/2023 9:15 AM UX INFORMATION ARCHITECT): Defer cataract surgery until signs and symptoms indicate. Pt was educated on the diagnosis. Recommend daily UV eye protection. Assessment & Plan (10/27/2020 9:01 AM UX INFORMATION ARCHITECT): Not yet Visually significant; defer cataract extraction [...] rescue Assessment & Plan (11/23/2019 5:30 PM UX INFORMATION ARCHITECT): Due to insulin overdose (accidental) - continue to monitor as above and treat as needed per hypoglycemia protocol Assessment & Plan (11/22/2019 10:08 PM UX INFORMATION ARCHITECT): Due to insulin overdose (accidental) - continue to monitor as above and treat as needed per hypoglycemia protocol Cellulitis of leg, right 11/22/2019 Assessment & Plan (11/23/2019 5:30 PM UX INFORMATION ARCHITECT): Was seen by dermatology on 11/08/2019 at which time culture was performed. Patient has culture results which are positive for proteus mirabilis sensitive to ampicillin. She was prescribed ampicillin 500mg BID for 30 days per patient. - Continue ampicillin 500mg BID while inpatient Assessment & Plan (11/22/2019 10:49 PM UX INFORMATION ARCHITECT): Was seen by dermatology on 11/08/2019 at [...] be further evaluated by US Pt has software test technician and has appointment coming up This finding was discussed and she will follow up with them Diabetes mellitus 07/10/2019 Assessment & Plan (08/13/2024 12:40 PM CDT): - Diabetes is complicated by neuropathy, end-stage renal disease on hemodialysis, hypertension, hyperlipidemia and obesity. 90-day Dexcom GMI 7.6%, above goal. Lab Results Component Value Date HGBA1C 6.8 02/22/2022 Per [employer], goal A1c is less 7% [...] that I am available via phone or [employer]ara[employer] Works[employer] if they have any concerns for hypo/hyperglycemia, medication refills, etc. Assessment & Plan (08/26/2019 7:42 AM UX INFORMATION ARCHITECT): No longer requires insulin therapy now that [...] 10/2019. Had a catheter for HD in [facility]. Initially managed with eliquis but transitioned [...] 06/26/2019 Assessment & Plan (11/23/2019 5:30 PM UX INFORMATION ARCHITECT): Continue allopurinol Assessment & Plan (11/22/2019 10:03 PM UX INFORMATION ARCHITECT): Continue allopurinol Assessment & Plan (07/16/2019 9:40 [...] safety. Assessment & Plan (11/15/2024 9:09 PM UX INFORMATION ARCHITECT): Managed by renal, need to minimize risk [...] hypoglycemia. Assessment & Plan (10/20/2022 10:20 AM UX INFORMATION ARCHITECT): Need to minimize risk of hypoglycemia. Assessment [...] hypoglycemia Assessment & Plan (11/23/2019 5:30 PM UX INFORMATION ARCHITECT): HD MWF Access: Last HD: 11/20 (mon). She had rescheduled her outpatient HD for today (Thursday 11/23 at 10:30am) - consult renal given elevating blood sugars, will need regimen going forward with current infection. Assessment & Plan (11/23/2019 5:20 PM UX INFORMATION ARCHITECT): HD MWF Access: Last HD: 11/20 (mon). She had rescheduled her outpatient HD for today (Thursday 11/23 at 10:30am) - consult renal given elevating blood sugars, will need regimen going forward with current infection. Assessment & Plan (08/26/2019 7:43 AM UX INFORMATION ARCHITECT): No longer requires insulin therapy. Assessment & [...] bilateral knee pain. Patient discharge with home PT/OT/long-term which has not been initiated. Continue lidocaine [...] bilateral knee pain. Patient discharge with home PT/OT/long-term which has not been initiated. Continue lidocaine [...] bilateral knee pain. Patient discharge with home PT/OT/long-term which has not been initiated. Continue lidocaine patch bilateral knees, oral prn tylenol and diclofenac dose increased to 4gm with improvement. Encouraged patient to use medications to improve mobility with therapy and agreeable. PT/OT for debilitation. Await SNF, insurance approval still pending. Assessment & Plan (07/25/2019 11:17 AM CDT): Recent admission 07/10-07/19 for OA bilateral knee pain. Patient discharge with home PT/OT/long-term which has not been initiated. Continue lidocaine patch bilateral knees, oral prn tylenol and diclofenac dose increased to 4gm with improvement. Encouraged patient to use medications to improve mobility with therapy and agreeable. PT/OT for debilitation. Await SNF Assessment & Plan (07/24/2019 2:04 PM CDT): Recent admission 07/10-07/19 for bilateral knee pain. Patient discharge with home PT/OT/long-term which has not been initiated. -continue lidocaine patch bilateral knees -continue prn tylenol and diclofenac PT/OT for debilitation. Assessment & Plan (07/23/2019 1:55 PM CDT): Recent admission 07/10-07/19 for bilateral knee pain. Patient discharge with home PT/OT/long-term which has not been initiated. -continue lidocaine patch bilateral knees -continue prn tylenol and diclofenac Assessment & Plan (07/22/2019 6:15 PM CDT): Recent admission 07/10-07/19 for bilateral knee pain. Patient discharge with home PT/OT/long-term which has not been initiated. -continue lidocaine [...] 01/09/2019 Assessment & Plan (11/23/2019 5:30 PM UX INFORMATION ARCHITECT): Continue phos binder - phos 4.9, prior to dialysis. - patient reports previously low and discontinued sevelamer Assessment & Plan (11/23/2019 5:23 PM UX INFORMATION ARCHITECT): Continue phos binder - phos 4.9, prior to dialysis. - patient reports previously low and discontinued sevelamer Anemia of chronic renal failure 06/01/2018 Assessment & Plan (11/23/2019 5:29 PM UX INFORMATION ARCHITECT): Usually received darbopoietin on Fridays with HD. - CBC stable. Assessment & Plan (11/23/2019 5:18 PM UX INFORMATION ARCHITECT): Usually received darbopoietin on Fridays with HD. [...] Component Value Date HGBA1C 6.8 02/22/2022 Per [employer] [employer], goal A1c is less 7% [...] etc. Assessment & Plan (11/15/2024 9:10 PM UX INFORMATION ARCHITECT): Overall glycemic control is within a reasonable range of control and safety. A1c 6.6% Assessment & Plan (05/12/2024 2:26 PM CDT): Glucoses a little high, but need to minimize risk of hypoglycemia. Assessment & Plan (02/08/2024 8:39 PM CDT): Glucoses very high after meals. Needs adjustments in basal and mealtime insulins. Assessment & Plan (10/26/2023 9:15 AM UX INFORMATION ARCHITECT): Pt ed. Stressed BG control (HbA1C<7) to [...] diabetes. Assessment & Plan (10/22/2022 12:48 PM UX INFORMATION ARCHITECT): Awaiting Hemoglobin A1c result; Dexcom report average [...] and she has also met with a commercial glazier. Assessment & Plan (02/23/2022 10:29 AM CDT): Hemoglobin A1c decreased to 6.8%, with minimal hypoglycemia. Continue using Dexcom for continuous monitoring and low BG alarms. She is taking Lantus PM daily, consistently. She is taking Humalog with meals and using sliding scale. She plans to continue making diet changes to help lower BG. Assessment & Plan (11/18/2021 12:55 PM UX INFORMATION ARCHITECT): Needs adjustments in insulins, particularly with variable [...] hypoglycemia. Assessment & Plan (10/27/2020 9:01 AM UX INFORMATION ARCHITECT): No retinopath; pt ed BG control -annual [...] today Assessment & Plan (11/15/2024 9:09 PM UX INFORMATION ARCHITECT): Continue supplement, monitored by renal Assessment & [...] renal Assessment & Plan (11/18/2021 12:52 PM UX INFORMATION ARCHITECT): Continue supplement, monitored by renal Assessment & Plan (03/17/2021 2:38 PM CDT): Continue supplement, monitored by renal Assessment & Plan (03/06/2020 10:42 AM CDT): Continue supplement, monitored by renal Assessment & Plan (06/15/2018 7:52 AM CDT): On daily supplement, chronic renal insufficiency Pes planus 10/18/2012 JASON on CPAP 10/18/2012 Assessment & Plan (11/23/2019 5:30 PM UX INFORMATION ARCHITECT): Continue CPAP with sleep. - CPAP ordered Assessment & Plan (11/22/2019 10:09 PM UX INFORMATION ARCHITECT): Continue CPAP with sleep. - CPAP ordered [...] mask/CPAP. Sleeping well. Defer to PCP for intermodal dispatcher weight management & goal setting for weight loss, with morbid obesity (BMI 60) playing a role. Assessment & Plan (07/27/2019 11:17 AM CDT): JASON w/ cpap at night, setting 11cmHg. Compliant with nightly mask/CPAP. Sleeping well. Defer to PCP for intermodal dispatcher weight management, with morbid obesity (BMI 60) playing a role. Assessment & Plan (07/26/2019 11:43 AM CDT): JASON w/ cpap at night, setting 11cmHg. Compliant with nightly mask. Sleeping well. Defer to PCP for [facility] weight management, with morbid obesity (BMI 60) playing a role. Assessment & Plan (07/25/2019 11:19 AM CDT): JASON w/ cpap at night, setting 11cmHg. Compliant with nightly mask. Defer to PCP for [facility] weight management, with morbid obesity (BMI 60) [...] QHS Assessment & Plan (11/23/2019 5:30 PM UX INFORMATION ARCHITECT): Continue Cymbalta and gabapentin Assessment & Plan (11/22/2019 10:12 PM UX INFORMATION ARCHITECT): Continue Cymbalta and gabapentin Assessment & Plan (08/26/2019 7:43 AM UX INFORMATION ARCHITECT): Clinically stable at this time Assessment & [...] panel Assessment & Plan (11/15/2024 9:09 PM UX INFORMATION ARCHITECT): Continue statin, optimize glycemic control. Assessment & [...] dialysis. Assessment & Plan (10/20/2022 10:17 AM UX INFORMATION ARCHITECT): She is taking ezetimibe 10mg, no longer [...] bleed. Assessment & Plan (11/23/2019 5:29 PM UX INFORMATION ARCHITECT): Continue home losartan - routine vitals Assessment & Plan (11/23/2019 5:26 PM UX INFORMATION ARCHITECT): Continue home losartan - routine vitals Assessment [...] vative Free, Intramuscular 07/23/2012 Influenza, Unspecified 07/31/2023,07/31/2020 [employer] ([employer]) SARS-CoV-2 Vaccination 08/01/2023 MMR 09/14/2015,08/14/2015 Pfizer [...] you have a drink containing alcohol? Never 07/14/2025 Q2: How many drinks containi ng alcohol do you have on a typical day when you are drinking? Patient does not drink Q3: How often do you have si x or more drinks on one occasion? Never 07/14/2025 Hunger Vital Sign Answer Date Recorded Within the past 12 months, y ou worried that your food would run out before you got the money to buy more. Never true 07/14/20 25 Within the past 12 months, t he food you bought just didn't last and you didn't have money to get more. Never true 07/14/2025 Personal Safety Answer Date Recorded Have you ever been in or are you currently in a harmful physical or emotional relationship or is someone making you feel afraid or unsafe? Denies 08/30/2024 Comments No Sex and Gender Information Value Date Recorded Sex Assigned at Not on file Legal Sex Female 3:06 AM UX INFORMATION ARCHITECT Gender Identity Not on file Sexual Orientation Not on file Last Filed Vital Signs Vital Sign Reading Time Taken Comments Blood Pressure 160/59 07/14/2025 9:12 AM CDT 82 Pulse 100 07/14/2025 9:12 AM CDT Temperature 36.5 C (97.7 F) 07/14/2025 9:12 AM CDT Respiratory Rate 24 07/14/2025 9:12 AM CDT Oxygen Saturation 96% 07/14/2025 9:12 AM CDT Inhaled Oxygen Concentration - - Weight 144.3 kg (318 lb 2 oz) 07/14/2025 9:12 AM CDT Height 152.4 cm (5') 07/14/2025 9:12 AM CDT Body Mass Index 62.13 07/14/2025 9:12 AM CDT Results * Glucose, random (06/09/2025 8:51 AM CDT) Blood Catherine Cain [facility] LAB BLOOD ORDERABLE S Final Result Performing Organization Address [facility] Co de Phone Number EXTERNAL LAB * C-peptide (06/06/2025 11:25 AM CDT) Blood Catherine Cain [facility] LAB BLOOD ORDERABLE S Final Result Performing Organization Address [facility] Co de Phone Number EXTERNAL LAB * Diabetes Mellitus Type 1 Evaluation (06/02/2025 4:16 PM CDT) Blood Catherine Plasencia [facility] LAB BLOOD ORDERABLE S Final Result Performing Organization Address [facility] de Phone Number EXTERNAL [...] IMG MAMMO PROCEDURES Fi nal Result * (ABNORMAL) POCT hemoglobin A1c (02/22/2022 10:26 AM CDT) Pathologist [facility] Hemoglobin A1C, POC 6.8 Blood specimen (specimen) 02/22/2022 10:26 AM CDT Krista SEVERINO POINT OF CARE TEST ORDArabella RODRIGUEZ Final Result * (ABNORMAL) eGFR (08/30/2021 9:53 PM UX INFORMATION ARCHITECT) Pathologist [facility] eGFR 7(L) 90 - 130 mL/min/1.7 3 m2 [facility] Comment: Interpretive Data Reference Interval [...] last reviewed 2020 Blood 08/30/2021 9:53 PM UX INFORMATION ARCHITECT 08/31/2021 1:30 AM UX INFORMATION ARCHITECT Slava Lowe MD LAB BLOOD ORDERABLES Karlee mckeon Result [facility] Department [place] [address] * Hepatitis panel, acute (11/14/2020 10:19 AM UX INFORMATION ARCHITECT) Pathologist [facility] Hep A IgM Nonreactive Nonreactive [facility] Comment: Interpretive Data: If Hep A IgM Ab is reported as Equivocal, a new sample should be drawn in two weeks for testing. Current interpretive data was last revised on 20. Hep B core IgM Nonreactive Nonreactive [facility] Comment: Interpretive Data If HepB Core IgM Ab is reported as Equivocal, a new sample should be drawn in two weeks for testing. Current interpretive data was last revised on 20. Hep C Ab Nonreactive Nonreactive [facility] Comment: Interpretive Data Nonreactive: Antibodies to HCV [...] last revised on 2020. HepBsAg Nonreactive Nonreactive [facility] Blood specimen (specimen) 11/14/2020 10:19 AM UX INFORMATION ARCHITECT 11/14/2020 10:19 AM UX INFORMATION ARCHITECT us Pierce Clark MD LAB MICROBIOLOGY - GENERAL ORDERABLES Final Result [facility] [address] Department [place] [address] * COLONOSCOPY (06/04/2020 4:03 PM CDT) Anatomical Region Laterality Modality Other Narrative Procedure Note Cruzito Benitez MD - 06/04/2020 4:03 PM CDT [facility] Patient Name: Fani Horton Procedure Date: 06/04/2020 4:03 PM Date of : 1960 Admit Type: Inpatient Age: 60 Gender: Female Attending MD: Cruzito Simms M.D. Room: [facility] OR POD 5 ROOM 224 Note Status: [...] The scope was passed under direct vision.The [id number] Endoscope was introduced throughthe anus and advanced to the cecum, identified by appendiceal orifice and ileocecal valve. The colonoscopy was performed without difficulty. The patient tolerated the procedure well. The quality of the bowel preparation was evaluated using the BBPS ([place] Bowel Preparation Scale) with scores of:Right Colon [...] On: 06/04/2020 4:03 PM Recognized by the [employer] for promoting quality in endoscopy Cruzito Simms MD ENDOSCOPY PROCEDURES Final Result * Lipid panel (06/03/2020 2:56 AM CDT) Cholesterol 163 30 - 199 mg/dL ELISEO [facility] Comment: Interpretive Data Ages < or = [...] revised on 2018. Triglycerides 125 <=149 mg/dL [facility] Comment: Interpretive Data Ages < [...] revised on 2018. HDL 67 >=40 mg/dL [facility] Comment: Interpretive Data Ages < [...] on 2018. LDL, calculated 71 <=129 mg/dL [facility] Comment: Interpretive Data Ages < [...] BLOOD ORDERABLES Final Result ELISEO CRONIN [facility] Department [place] [address] from Last 3 Months or Most Recently Relevant to Health Maintenance
--- OUTSIDE RECORDS SUMMARY | 2025-07-28 16:07 | XMS_ITS | Encounter Summary ---
Author Organization [facility] Address [address] [place] [address] Phone Care Team Providers Care Metal Stamping Machine Operator Name Role Phone Chelle Espinoza MD Unavailable [phone] Marguerite Fuchs MD Primary Care Provider Aft, Cesilia Allen MD PhD Unavailable [phone] Peter Joe MD Unavailable [phone] [facility] [phone] Encounter Details Date Type Department Care Team [...] on file Legal Sex Female 3:06 AM [employer] Gender Identity Not on file Sexual Orientation Not on file documented as of this encounter Plan of Treatment Not on file documented as of this encounter Goals Goal Patient Goal Type Associated Problems Recent Progress Patient-Stated? Author CCM Chronic Pain Care Plan Chronic Care Management Improving( 9:21 AM CDT) No Ana Paula Talley RN [...] on filedocumented in this encounter Care Teams Metal Stamping Machine Operator Relationship Specialty Start Date End Date Marguerite Fuchs MD PCP - General Family Practice 10/27/20 Chelle Espinoza MD Referring Physician Endocrinology Diabetes & Metabolism 03/06/20 Cesilia Aguilar MD PhD Surgeon Surgical Oncology 11/18/21 [place] [id number] [facility] [address] [place] [address] Consulting Physician Nephrology 05/12/24 Catherine Duncan PA [address] [facility], [facility] [address] [place] [address] Physician Truck Body Builder Physician Truck Body Builder 05/17/25 documented as of this encounter
--- OUTSIDE RECORDS SUMMARY | 2025-07-28 16:07 | XMS_ITS ---
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 Name Role Phone Unavailable Unavailable Unavailable Allergies, Adverse Reactions, Alerts Allergy Name Allergy Type Status Severity Reaction(s) Onset Date Inactive Date Treating Clinician Comments Benazepril Allergy Active Unknown 2022-07 15:11:4 1 Vioxx Allergy Active Unknown 2022-07 15:09:1 2 metFORMIN Allergy Active Unknown 2022-07 15:08:4 7 Lipitor Allergy Active Unknown 2022-07 15:07:3 4 glipiZIDE Allergy Active Unknown 2022-07 15:07:0 5 Gabapentin Allergy Active Unknown 2022-07 15:06:4 3 PAULINA Inhibitors Allergy Active Unknown 2022-07 15:04:3 2 Medications Ordered Medication Name Filled Medication Name Start Date Stop Date Current Medication? Ordering Clinician Indication Dosage Frequency Signature (SIG) Comments Components Mircera 07-18 05:00: 00 Yes [id number] Number of Repeats Allowed: Frequency: SOBIA dosing, every two weeks calcitriol 07-07 17:00: 08 Yes [id number] Number of Repeats Allowed: Frequency: Three times a week cinacalcet hydrochlori de 07-07 16:46: 01 Yes [id number] Number of Repeats Allowed: Frequency: Three times a week Venofer 06-20 05:00: 00 Yes [id number] Number of Repeats Allowed: Frequency: One time a weekDosesO rdered: Maintenanc e Dose 50 Milligram Route: Intravenou s Mircera 05-23 05:00: 00 Yes [id number] Number of Repeats Allowed: Frequency: SOBIA dosing, every two weeks calcitriol 05-22 18:20: 43 Yes [id number] Number of Repeats Allowed: Frequency: Three times a week Oxygen 03-26 19:27: 45 Yes [id number] Number of Repeats Allowed: Frequency: As needed ondansetron hydrochlori de 03-26 19:26: 54 Yes [id number] Number of Repeats Allowed: Frequency: Every 4 hours as needed loperamide hydrochlori de 03-26 19:25: 52 Yes [id number] Number of Repeats Allowed: Frequency: Every 4 hours as needed Insta-Gluco se 03-26 19:24: 22 Yes [id number] Number of Repeats Allowed: Frequency: Every 30 minutes as needed diphenhydra mine hydrochlori de 03-26 19:23: 22 Yes [id number] Number of Repeats Allowed: Frequency: Every 30 minutes as needed Antacid 03-26 19:21: 05 Yes [id number] Number of Repeats Allowed: Frequency: Every 4 hours as needed acetaminoph en 03-26 19:16: 11 Yes [id number] Number of Repeats Allowed: Frequency: Every 4 hours as needed calcitriol 03-26 19:13: 25 Yes [id number] Number of Repeats Allowed: Frequency: Three times a week on Monday, and Monday Mircera 03-26 19:11: 34 Yes [id number] Number of Repeats Allowed: Frequency: SOBIA dosing, every two weeks heparin sodium, porcine 03-26 18:56: 47 Yes [id number] Number of Repeats Allowed: Frequency: Three times a week on Monday, and MondayDo sesOrdered : Loading Dose 3000 Units 1:1000 Units/mLRo damian: Intravenou s Mircera 03-23 05:00: 00 Yes [id number] Number of Repeats Allowed: Frequency: SOBIA dosing, every two weeks cinacalcet hydrochlori de 11-20 06:00: 00 Yes [id number] Number of Repeats Allowed: Frequency: Three times a week calcitriol 11-20 06:00: 00 Yes [id number] Number of Repeats Allowed: Frequency: Three times a week Antacid Extra Strength 11-06 14:18: 15 Yes [id number] Number of Repeats Allowed: Frequency: Every 4 hours as needed Oxygen 11-06 14:09: 50 Yes [id number] Number of Repeats Allowed: Frequency: As needed ondansetron hydrochlori de 11-06 14:09: 49 Yes [id number] Number of Repeats Allowed: Frequency: Every 4 hours as needed loperamide hydrochlori de 11-06 14:09: 48 Yes [id number] Number of Repeats Allowed: Frequency: Every 4 hours as needed Insta-Gluco se 11-06 14:09: 48 Yes [id number] Number of Repeats Allowed: Frequency: Every 30 minutes as needed heparin sodium, porcine 11-06 14:09: 47 Yes [id number] Number of Repeats Allowed: Frequency: Every Dialysis TreatmentD osesOrdere d: Loading Dose 3000 Units 1:1000 Units/mLRo damian: Intravenou s diphenhydra mine hydrochlori de 11-06 14:09: 46 Yes [id number] Number of Repeats Allowed: Frequency: Every 30 minutes as needed acetaminoph en 11-06 14:09: 43 Yes [id number] Number of Repeats Allowed: Frequency: Every 4 hours as needed Pregabalin 2023-10 15:52: 58 Yes Number of Repeats Allowed: Frequency: Once a day, at bedtime Toujeo SoloStar 2023-10 15:50: 19 Yes Number of Repeats Allowed: Frequency: One time a day Cetirizine HCl 2023-10 15:48: 18 Yes Number of Repeats Allowed: Frequency: One time a day Artificial Tears 2023-10 15:02: 03 Yes Number of Repeats Allowed: Frequency: As needed Albuterol Sulfate HFA 2023-10 15:00: 16 Yes Number of Repeats Allowed: Frequency: As needed Ezetimibe 2023-10 14:57: 15 Yes Number of Repeats Allowed: Frequency: One time a day Lymelyssajev JamiePen 3-17 20:08: 40 Yes Number of Repeats Allowed: Frequency: With meals Midodrine HCl 9 05:00: 00 Yes Number of Repeats Allowed: Frequency: Pre-dialys is Betamethaso ne 2020-10 06:00: 00 Yes Number of Repeats Allowed: Frequency: As needed Aspirin EC 2020-10 06:00: 00 Yes Number of Repeats Allowed: Frequency: One time a day Dialyvite 2020-10 06:00: 00 Yes Number of Repeats Allowed: Frequency: One time a day Pantoprazol e Sodium 2020-10 06:00: 00 Yes Number of Repeats Allowed: Frequency: One time a day Lidocaine-P rilocaine 2020-10 06:00: 00 Yes Number of Repeats Allowed: Frequency: Pre-dialys is Allopurinol 2020-10 06:00: 00 Yes Number of Repeats Allowed: Frequency: One time a day Problems This patient has no known problems. Procedures Procedure Date / Time Performed Performing Clinician Alexus ce Details AV Graft 2021-09-22 06:00:00 Access Site Upper Arm (Left) DIALYSIS TREATMENT INFORMATION Conventional Hemodialysis Date Type Treatment Start Date Treatment End Date Pre-Treatment Vitals Post-Treatment Vitals Weight Gain BFR DFR Actual UF Dialysis Access Octob er 2024 In-Ce nter Hemod ialys is Treat ment 2025-07-26 T13:33:43. 000Z 2025-07-26 T16:17:28. 000Z BP Sitting (Pre-Dialysis) 154/75 mmHg BP Sitting (Post-D ialysis ) 138/ 62 mmHg Sitting Heart Rate Pre-Dialysis 98 BPM Sitting H eart Rate Post-Dialysis 76 BPM Temperature Pre-Dialysis 97 degF Temperature Post -Dialysis 97 degF July 24, 2025 In-Center Hemodialysis Treatment 5915-26-04T73:07:40.000Z 2495-10-04O04:10:35.000Z BP Sitting (Pre-Dialysis) 154/73 mmHg BP Sitting (Post-Dialysis) 136/47 mmHg Concurrent Access: falseAV Graft Upper Arm (Left) Arterial Sitting Heart Rate Pre-Dialysis 92 BPM Sitting H eart Rate Post-Dialysis 67 BPM Temperature Pre-Dialysis 97.9 degF Temperature Post -Dialysis 97.7 degF July 22, 2025 In-Center Hemodialysis Treatment 0788-19-82S92:00:00.000Z 8055-37-27J72:03:00.000Z BP Sitting (Pre-Dialysis) 163/78 mmHg BP Sitting (Post-Dialysis) 142/72 mmHg Concurrent Access: falseAV Graft Upper Arm (Left) Arterial Sitting Heart Rate Pre-Dialysis 92 BPM Sitting H eart Rate Post-Dialysis 66 BPM Temperature Pre-Dialysis 97.7 degF Temperature Post -Dialysis 97.5 degF July 19, 2025 In-Center Hemodialysis Treatment 4542-43-99X39:00:12.000Z 7353-34-50L33:01:27.000Z BP Sitting (Pre-Dialysis) 135/58 mmHg BP Sitting (Post-Dialysis) 164/62 mmHg Concurrent Access: falseAV Graft Upper Arm (Left) Arterial Sitting Heart Rate Pre-Dialysis 85 BPM Sitting H eart Rate Post-Dialysis 70 BPM Temperature Pre-Dialysis 96.8 degF Temperature Post -Dialysis 97.2 degF July 17, 2025 In-Center Hemodialysis Treatment 4696-17-81J57:00:29.000Z 5774-44-25U72:01:19.000Z BP Sitting (Pre-Dialysis) 154/68 mmHg BP Sitting (Post-Dialysis) 131/57 mmHg Concurrent Access: falseAV Graft Upper Arm (Left) Arterial Sitting Heart Rate Pre-Dialysis 97 BPM Sitting H eart Rate Post-Dialysis 67 BPM Temperature Pre-Dialysis 98.1 degF Temperature Post -Dialysis 97.2 degF July 15, 2025 In-Center Hemodialysis Treatment 4142-11-10V15:18:25.000Z 6005-18-28P62:20:05.000Z BP Sitting (Pre-Dialysis) 148/72 mmHg BP Sitting (Post-Dialysis) 131/59 mmHg Concurrent Access: falseAV Graft Upper Arm (Left) Arterial Sitting Heart Rate Pre-Dialysis 94 BPM Sitting H eart Rate Post-Dialysis 74 BPM Temperature Pre-Dialysis 98.1 degF Temperature Post -Dialysis 97.4 degF July 12, 2025 In-Center Hemodialysis Treatment 8870-33-74H03:15:56.000Z 9623-67-38Z85:17:11.000Z BP Sitting (Pre-Dialysis) 133/66 mmHg BP Sitting (Post-Dialysis) 128/68 mmHg Concurrent Access: falseAV Graft Upper Arm (Left) Arterial Sitting Heart Rate Pre-Dialysis 94 BPM Sitting H eart Rate Post-Dialysis 66 BPM Temperature Pre-Dialysis 97.4 degF Temperature Post -Dialysis 96.6 degF July 10, 2025 In-Center Hemodialysis Treatment 7524-10-44B07:02:02.000Z 9104-42-10S34:03:17.000Z BP Sitting (Pre-Dialysis) 143/60 mmHg BP Sitting (Post-Dialysis) 142/62 mmHg Concurrent Access: falseAV Graft Upper Arm (Left) Arterial Sitting Heart Rate Pre-Dialysis 87 BPM Sitting H eart Rate Post-Dialysis 65 BPM Temperature Pre-Dialysis 97.9 degF Temperature Post -Dialysis 97.5 degF July 08, 2025 In-Center Hemodialysis Treatment 8732-22-73R39:10:11.000Z 1577-49-30I50:12:16.000Z BP Sitting (Pre-Dialysis) 170/77 mmHg BP Sitting (Post-Dialysis) 129/80 mmHg Concurrent Access: falseAV Graft Upper Arm (Left) Arterial Sitting Heart Rate Pre-Dialysis 94 BPM Sitting H eart Rate Post-Dialysis 95 BPM Temperature Pre-Dialysis 97.2 degF Temperature Post -Dialysis 97.6 degF July 05, 2025 In-Center Hemodialysis Treatment 4412-62-28H92:03:08.000Z 4718-99-34Y17:03:58.000Z BP Sitting (Pre-Dialysis) 142/77 mmHg BP Sitting (Post-Dialysis) 135/69 mmHg Concurrent Access: falseAV Graft Upper Arm (Left) Arterial Sitting Heart Rate Pre-Dialysis 89 BPM Sitting H eart Rate Post-Dialysis 74 BPM Temperature Pre-Dialysis 97.4 degF Temperature Post -Dialysis 97.8 degF July 03, 2025 In-Center Hemodialysis Treatment 4637-91-78V27:13:00.000Z 0572-44-03Q67:15:00.000Z BP Sitting (Pre-Dialysis) 137/61 mmHg BP Sitting (Post-Dialysis) 127/60 mmHg Concurrent Access: falseAV Graft Upper Arm (Left) Arterial Sitting Heart Rate Pre-Dialysis 85 BPM Sitting H eart Rate Post-Dialysis 75 BPM July 01, 2025 In-Center Hemodialysis Treatment 8761-77-58T22:14:00.000Z 9006-26-44M23:16:46.000Z BP Sitting (Pre-Dialysis) 178/76 mmHg BP Sitting (Post-Dialysis) 145/66 mmHg Concurrent Access: falseAV Graft Upper Arm (Left) Arterial Sitting Heart Rate Pre-Dialysis 98 BPM Sitting H eart Rate Post-Dialysis 76 BPM Temperature Pre-Dialysis 98 degF Temperature Post -Dialysis 97.2 degF June 28, 2025 In-Center Hemodialysis Treatment 8730-34-82F96:06:54.000Z 3761-87-79Q40:07:19.000Z BP Sitting (Pre-Dialysis) 185/62 mmHg BP Sitting (Post-Dialysis) 107/63 mmHg Concurrent Access: falseAV Graft Upper Arm (Left) Arterial Sitting Heart Rate Pre-Dialysis 103 BPM Sitting H eart Rate Post-Dialysis 108 BPM Temperature Pre-Dialysis 97.9 degF Temperature Post -Dialysis 97.2 degF June 26, 2025 In-Center Hemodialysis Treatment 4149-41-63P78:15:51.000Z 7069-71-00P63:15:51.000Z BP Sitting (Pre-Dialysis) 152/71 mmHg BP Sitting (Post-Dialysis) 127/64 mmHg Concurrent Access: falseAV Graft Upper Arm (Left) Arterial Sitting Heart Rate Pre-Dialysis 103 BPM Sitting H eart Rate Post-Dialysis 79 BPM Temperature Pre-Dialysis 97.3 degF Temperature Post -Dialysis 97.3 degF June 24, 2025 In-Center Hemodialysis Treatment 8904-49-29R16:12:27.000Z 8600-14-86F34:10:22.000Z BP Sitting (Pre-Dialysis) 187/80 mmHg BP Sitting (Post-Dialysis) 139/71 mmHg Concurrent Access: falseAV Graft Upper Arm (Left) Arterial Sitting Heart Rate Pre-Dialysis 107 BPM Sitting H eart Rate Post-Dialysis 77 BPM Temperature Pre-Dialysis 97.9 degF Temperature Post -Dialysis 97.4 degF June 21, 2025 In-Center Hemodialysis Treatment 6155-15-14U29:12:44.000Z 3873-93-18Q04:14:24.000Z BP Sitting (Pre-Dialysis) 170/72 mmHg BP Sitting (Post-Dialysis) 128/63 mmHg Concurrent Access: falseAV Graft Upper Arm (Left) Arterial Sitting Heart Rate Pre-Dialysis 99 BPM Sitting H eart Rate Post-Dialysis 70 BPM Temperature Pre-Dialysis 97.3 degF Temperature Post -Dialysis 96.9 degF June 19, 2025 In-Center Hemodialysis Treatment 7229-09-47H82:12:08.000Z 4780-17-89B28:11:43.000Z BP Sitting (Pre-Dialysis) 118/45 mmHg BP Sitting (Post-Dialysis) 125/52 mmHg Concurrent Access: falseAV Graft Upper Arm (Left) Arterial Sitting Heart Rate Pre-Dialysis 82 BPM Sitting H eart Rate Post-Dialysis 88 BPM Temperature Pre-Dialysis 97.8 degF Temperature Post -Dialysis 97.6 degF June 17, 2025 In-Center Hemodialysis Treatment 0978-32-37Z05:16:53.000Z 2542-12-56M79:17:43.000Z BP Sitting (Pre-Dialysis) 156/74 mmHg BP Sitting (Post-Dialysis) 135/56 mmHg Concurrent Access: falseAV Graft Upper Arm (Left) Arterial Sitting Heart Rate Pre-Dialysis 96 BPM Sitting H eart Rate Post-Dialysis 75 BPM Temperature Pre-Dialysis 97.6 degF Temperature Post -Dialysis 96.7 degF June 14, 2025 In-Center Hemodialysis Treatment 0211-84-01Q21:07:08.000Z 3772-48-12M33:07:58.000Z BP Sitting (Pre-Dialysis) 152/85 mmHg BP Sitting (Post-Dialysis) 165/77 mmHg Concurrent Access: falseAV Graft Upper Arm (Left) Arterial Sitting Heart Rate Pre-Dialysis 100 BPM Sitting H eart Rate Post-Dialysis 76 BPM Temperature Pre-Dialysis 97.6 degF Temperature Post -Dialysis 97.6 degF June 12, 2025 In-Center Hemodialysis Treatment 3485-71-89Y98:10:57.000Z 7436-07-10R88:11:22.000Z BP Sitting (Pre-Dialysis) 153/81 mmHg BP Sitting (Post-Dialysis) 139/58 mmHg Concurrent Access: falseAV Graft Upper Arm (Left) Arterial Sitting Heart Rate Pre-Dialysis 101 BPM Sitting H eart Rate Post-Dialysis 75 BPM Temperature Pre-Dialysis 97.2 degF Temperature Post -Dialysis 96.6 degF June 10, 2025 In-Center Hemodialysis Treatment [id number]:08:47.000Z 0693-49-40F46:09:37.000Z BP Sitting (Pre-Dialysis) 109/37 mmHg BP Sitting (Post-Dialysis) 131/65 mmHg Concurrent Access: falseAV Graft Upper Arm (Left) Arterial Sitting Heart Rate Pre-Dialysis 87 BPM Sitting H eart Rate Post-Dialysis 72 BPM Temperature Pre-Dialysis 98 degF Temperature Post -Dialysis 97.8 degF June 07, 2025 In-Center Hemodialysis Treatment 9286-87-76E66:30:15.000Z 7318-69-71F71:29:25.000Z BP Sitting (Pre-Dialysis) 173/70 mmHg BP Sitting (Post-Dialysis) 135/97 mmHg Concurrent Access: falseAV Graft Upper Arm (Left) Arterial Sitting Heart Rate Pre-Dialysis 102 BPM Sitting H eart Rate Post-Dialysis 65 BPM Temperature Pre-Dialysis 97.9 degF Temperature Post -Dialysis 97.8 degF June 05, 2025 In-Center Hemodialysis Treatment 6400-06-88Y94:11:57.000Z 1752-11-65T78:11:57.000Z BP Sitting (Pre-Dialysis) 159/72 mmHg BP Sitting (Post-Dialysis) 127/57 mmHg Concurrent Access: falseAV Graft Upper Arm (Left) Arterial Sitting Heart Rate Pre-Dialysis 95 BPM Sitting H eart Rate Post-Dialysis 69 BPM Temperature Pre-Dialysis 97.7 degF Temperature Post -Dialysis 97.3 degF June 03, 2025 In-Center Hemodialysis Treatment 5585-20-53R12:06:41.000Z 2655-16-54Y96:07:31.000Z BP Sitting (Pre-Dialysis) 163/79 mmHg BP Sitting (Post-Dialysis) 134/66 mmHg Concurrent Access: falseAV Graft Upper Arm (Left) Arterial Sitting Heart Rate Pre-Dialysis 103 BPM Sitting H eart Rate Post-Dialysis 80 BPM Temperature Pre-Dialysis 97.6 degF Temperature Post -Dialysis 96.4 degF May 31, 2025 In-Center Hemodialysis Treatment 5998-88-31L89:16:56.000Z 4304-77-11N98:17:22.000Z BP Sitting (Pre-Dialysis) 192/90 mmHg BP Sitting (Post-Dialysis) 132/69 mmHg Concurrent Access: falseAV Graft Upper Arm (Left) Arterial Sitting Heart Rate Pre-Dialysis 89 BPM Sitting H eart Rate Post-Dialysis 77 BPM Temperature Pre-Dialysis 97.3 degF Temperature Post -Dialysis 97.2 degF May 29, 2025 In-Center Hemodialysis Treatment 8323-42-28B57:10:27.000Z 7805-31-45L72:12:32.000Z BP Sitting (Pre-Dialysis) 166/71 mmHg BP Sitting (Post-Dialysis) 144/50 mmHg Concurrent Access: falseAV Graft Upper Arm (Left) Arterial Sitting Heart Rate Pre-Dialysis 94 BPM Sitting H eart Rate Post-Dialysis 70 BPM Temperature Pre-Dialysis 97.3 degF Temperature Post -Dialysis 97 degF May 27, 2025 In-Center Hemodialysis Treatment 7282-94-16F57:58:37.000Z 1366-80-27W61:59:02.000Z BP Sitting (Pre-Dialysis) 151/69 mmHg BP Sitting (Post-Dialysis) 145/63 mmHg Concurrent Access: falseAV Graft Upper Arm (Left) Arterial Sitting Heart Rate Pre-Dialysis 94 BPM Sitting H eart Rate Post-Dialysis 80 BPM Temperature Pre-Dialysis 97.8 degF Temperature Post -Dialysis 97.5 degF May 24, 2025 In-Center Hemodialysis Treatment 0249-50-63Z23:48:58.000Z 5681-02-18D60:47:43.000Z BP Sitting (Pre-Dialysis) 149/66 mmHg BP Sitting (Post-Dialysis) 129/64 mmHg Concurrent Access: falseAV Graft Upper Arm (Left) Arterial Sitting Heart Rate Pre-Dialysis 94 BPM Sitting H eart Rate Post-Dialysis 66 BPM Temperature Pre-Dialysis 97.3 degF Temperature Post -Dialysis 97.6 degF May 22, 2025 In-Center Hemodialysis Treatment 1471-84-14I68:09:22.000Z 2962-61-28R12:09:22.000Z BP Sitting (Pre-Dialysis) 140/64 mmHg BP Sitting (Post-Dialysis) 125/50 mmHg Concurrent Access: falseAV Graft Upper Arm (Left) Arterial Sitting Heart Rate Pre-Dialysis 92 BPM Sitting H eart Rate Post-Dialysis 71 BPM Temperature Pre-Dialysis 98.1 degF Temperature Post -Dialysis 97.8 degF May 20, 2025 In-Center Hemodialysis Treatment 5394-84-26I79:05:22.000Z 0413-01-48G06:10:22.000Z BP Sitting (Pre-Dialysis) 150/72 mmHg BP Sitting (Post-Dialysis) 148/49 mmHg Concurrent Access: falseAV Graft Upper Arm (Left) Arterial Sitting Heart Rate Pre-Dialysis 98 BPM Sitting H eart Rate Post-Dialysis 100 BPM Temperature Pre-Dialysis 96.8 degF Temperature Post -Dialysis 97.3 degF May 17, 2025 In-Center Hemodialysis Treatment 4040-55-58U68:09:34.000Z 3498-50-12N89:07:54.000Z BP Sitting (Pre-Dialysis) 116/52 mmHg BP Sitting (Post-Dialysis) 137/89 mmHg Concurrent Access: falseAV Graft Upper Arm (Left) Arterial Sitting Heart Rate Pre-Dialysis 84 BPM Sitting H eart Rate Post-Dialysis 68 BPM Temperature Pre-Dialysis 98 degF Temperature Post -Dialysis 97.2 degF May 15, 2025 In-Center Hemodialysis Treatment 8514-27-66C45:51:22.000Z 4056-94-55Z62:50:32.000Z BP Sitting (Pre-Dialysis) 166/74 mmHg BP Sitting (Post-Dialysis) 117/50 mmHg Concurrent Access: falseAV Graft Upper Arm (Left) Arterial BP Standing (Pre-Dialysis) 156/81 mmHg Sitti ng Heart Rate Post-Dialysis 70 BPM Sitting Heart Rate Pre-Dialysis 90 BPM Temperatu re Post-Dialysis 97.3 degF Standing Heart Rate Pre-Dialysis 92 BPM Temperature Pre-Dialysis 97.4 degF May 13, 2025 In-Center Hemodialysis Treatment 3304-96-51R79:06:18.000Z 9603-43-95O55:07:33.000Z BP Sitting (Pre-Dialysis) 149/62 mmHg BP Sitting (Post-Dialysis) 119/46 mmHg Concurrent Access: falseAV Graft Upper Arm (Left) Arterial Sitting Heart Rate Pre-Dialysis 90 BPM Sitting H eart Rate Post-Dialysis 116 BPM Temperature Pre-Dialysis 98.1 degF Temperature Post -Dialysis 97.4 degF May 10, 2025 In-Center Hemodialysis Treatment 1124-71-26P73:57:49.000Z 5297-88-16F60:00:19.000Z BP Sitting (Pre-Dialysis) 153/78 mmHg BP Sitting (Post-Dialysis) 152/59 mmHg Concurrent Access: falseAV Graft Upper Arm (Left) Arterial Sitting Heart Rate Pre-Dialysis 91 BPM Sitting H eart Rate Post-Dialysis 76 BPM Temperature Pre-Dialysis 97.5 degF Temperature Post -Dialysis 97.2 degF May 08, 2025 In-Center Hemodialysis Treatment 3894-97-21Q20:07:38.000Z 6148-59-00H73:07:38.000Z BP Sitting (Pre-Dialysis) 129/63 mmHg BP Sitting (Post-Dialysis) 107/66 mmHg Concurrent Access: falseAV Graft Upper Arm (Left) Arterial Sitting Heart Rate Pre-Dialysis 89 BPM Sitting H eart Rate Post-Dialysis 69 BPM Temperature Pre-Dialysis 98.1 degF Temperature Post -Dialysis 97.5 degF May 06, 2025 In-Center Hemodialysis Treatment 2258-88-36W27:03:17.000Z 1739-19-95F83:58:17.000Z BP Sitting (Pre-Dialysis) 168/82 mmHg BP Sitting (Post-Dialysis) 134/62 mmHg Concurrent Access: falseAV Graft Upper Arm (Left) Arterial BP Standing (Pre-Dialysis) 165/81 mmHg Sitting Heart Rate Post-Dialysis 73 BPM Sitting Heart Rate Pre-Dialysis 90 BPM Temperatu re Post-Dialysis 97 degF Standing Heart Rate Pre-Dialysis 95 BPM Temperature Pre-Dialysis 97.2 degF May 03, 2025 In-Center Hemodialysis Treatment 6541-32-29X81:24:46.000Z 3138-08-30S04:23:56.000Z BP Sitting (Pre-Dialysis) 119/67 mmHg BP Sitting (Post-Dialysis) 112/67 mmHg Concurrent Access: falseAV Graft Upper Arm (Left) Arterial Sitting Heart Rate Pre-Dialysis 95 BPM Sitting H eart Rate Post-Dialysis 68 BPM Temperature Pre-Dialysis 97.3 degF Temperature Post -Dialysis 97.2 degF May 01, 2025 In-Center Hemodialysis Treatment 3810-18-05J91:01:29.000Z 7193-71-97M26:06:04.000Z BP Sitting (Pre-Dialysis) 121/61 mmHg BP Sitting (Post-Dialysis) 112/63 mmHg Concurrent Access: falseAV Graft Upper Arm (Left) Arterial Sitting Heart Rate Pre-Dialysis 87 BPM Sitting H eart Rate Post-Dialysis 70 BPM Temperature Pre-Dialysis 97.6 degF Temperature Post -Dialysis 97.8 degF April 29, 2025 In-Center Hemodialysis Treatment 5586-97-32G73:04:05.000Z 3588-66-45G77:05:45.000Z BP Sitting (Pre-Dialysis) 141/66 mmHg BP Sitting (Post-Dialysis) 128/67 mmHg Concurrent Access: falseAV Graft Upper Arm (Left) Arterial Sitting Heart Rate Pre-Dialysis 77 BPM Sitting H eart Rate Post-Dialysis 75 BPM Temperature Pre-Dialysis 97.6 degF Temperature Post -Dialysis 97.2 degF April 26, 2025 In-Center Hemodialysis Treatment 2944-58-75Y25:02:14.000Z 5868-05-27W23:21:49.000Z BP Sitting (Pre-Dialysis) 168/72 mmHg BP Sitting (Post-Dialysis) 145/88 mmHg Concurrent Access: falseAV Graft Upper Arm (Left) Arterial Sitting Heart Rate Pre-Dialysis 92 BPM Sitting H eart Rate Post-Dialysis 76 BPM Temperature Pre-Dialysis 98 degF Temperature Post -Dialysis 97.9 degF April 24, 2025 In-Center Hemodialysis Treatment 8542-21-56X85:07:48.000Z 6324-29-03A52:07:23.000Z BP Sitting (Pre-Dialysis) 142/67 mmHg BP Sitting (Post-Dialysis) 114/53 mmHg Concurrent Access: falseAV Graft Upper Arm (Left) Arterial Sitting Heart Rate Pre-Dialysis 96 BPM Sitting H eart Rate Post-Dialysis 110 BPM Temperature Pre-Dialysis 97.8 degF Temperature Post -Dialysis 98.2 degF April 22, 2025 In-Center Hemodialysis Treatment 5447-57-52E29:08:08.000Z 0980-79-74M05:08:08.000Z BP Sitting (Pre-Dialysis) 160/77 mmHg BP Sitting (Post-Dialysis) 134/64 mmHg Concurrent Access: falseAV Graft Upper Arm (Left) Arterial BP Standing (Pre-Dialysis) 162/70 mmHg Sitti ng Heart Rate Post-Dialysis 74 BPM Sitting Heart Rate Pre-Dialysis 94 BPM Temperatu re Post-Dialysis 97.6 degF Standing Heart Rate Pre-Dialysis 97 BPM Temperature Pre-Dialysis 97.9 degF April 19, 2025 In-Center Hemodialysis Treatment 0446-77-07R28:08:55.000Z 5307-36-03Z05:07:40.000Z BP Sitting (Pre-Dialysis) 166/84 mmHg BP Sitting (Post-Dialysis) 139/63 mmHg Concurrent Access: falseAV Graft Upper Arm (Left) Arterial Sitting Heart Rate Pre-Dialysis 94 BPM Sitting H eart Rate Post-Dialysis 75 BPM Temperature Pre-Dialysis 97.5 degF Temperature Post -Dialysis 97.2 degF April 17, 2025 In-Center Hemodialysis Treatment 1413-68-90Y09:07:21.000Z 7025-21-91A11:07:46.000Z BP Sitting (Pre-Dialysis) 152/73 mmHg BP Sitting (Post-Dialysis) 110/65 mmHg Concurrent Access: falseAV Graft Upper Arm (Left) Arterial Sitting Heart Rate Pre-Dialysis 103 BPM Sitting H eart Rate Post-Dialysis 72 BPM Temperature Pre-Dialysis 97.5 degF Temperature Post -Dialysis 98.2 degF April 15, 2025 In-Center Hemodialysis Treatment 1651-28-97Y76:01:36.000Z 5931-31-10O74:02:26.000Z BP Sitting (Pre-Dialysis) 124/57 mmHg BP Sitting (Post-Dialysis) 131/52 mmHg Concurrent Access: falseAV Graft Upper Arm (Left) Arterial Sitting Heart Rate Pre-Dialysis 92 BPM Sitting H eart Rate Post-Dialysis 73 BPM Temperature Pre-Dialysis 97.8 degF Temperature Post -Dialysis 97.4 degF April 12, 2025 In-Center Hemodialysis Treatment 5076-32-18Z01:36:23.000Z 7620-15-14T00:34:43.000Z BP Sitting (Pre-Dialysis) 141/96 mmHg BP Sitting (Post-Dialysis) 104/63 mmHg Concurrent Access: falseAV Graft Upper Arm (Left) Arterial Sitting Heart Rate Pre-Dialysis 96 BPM Sitting H eart Rate Post-Dialysis 89 BPM Temperature Pre-Dialysis 97.6 degF Temperature Post -Dialysis 97.6 degF April 10, 2025 In-Center Hemodialysis Treatment 4981-86-21O00:08:08.000Z 2091-87-23R03:08:08.000Z BP Sitting (Pre-Dialysis) 169/83 mmHg BP Sitting (Post-Dialysis) 128/65 mmHg Concurrent Access: falseAV Graft Upper Arm (Left) Arterial Sitting Heart Rate Pre-Dialysis 99 BPM Sitting H eart Rate Post-Dialysis 74 BPM Temperature Pre-Dialysis 98.2 degF Temperature Post -Dialysis 97.6 degF April 08, 2025 In-Center Hemodialysis Treatment [id number]:05:14.000Z [id number]:10:14.000Z BP Sitting (Pre-Dialysis) 165/75 mmHg BP Sitting (Post-Dialysis) 137/60 mmHg Concurrent Access: falseAV Graft Upper Arm (Left) Arterial BP Standing (Pre-Dialysis) 159/76 mmHg Sitti ng Heart Rate Post-Dialysis 73 BPM Sitting Heart Rate Pre-Dialysis 100 BPM Temperatu re Post-Dialysis 97.5 degF Standing Heart Rate Pre-Dialysis 117 BPM Temperature Pre-Dialysis 97.2 degF April 05, 2025 In-Center Hemodialysis Treatment [id number]:25:32.000Z [id number]:26:47.000Z BP Sitting (Pre-Dialysis) 161/84 mmHg BP Sitting (Post-Dialysis) 151/71 mmHg Concurrent Access: falseAV Graft Upper Arm (Left) Arterial BP Standing (Pre-Dialysis) 159/80 mmHg Sitti ng Heart Rate Post-Dialysis 80 BPM Sitting Heart Rate Pre-Dialysis 105 BPM Temperatu re Post-Dialysis 97.2 degF Standing Heart Rate Pre-Dialysis 99 BPM Temperature Pre-Dialysis 97.2 degF April 03, 2025 In-Center Hemodialysis Treatment [id number]:08:58.000Z 2702-64-94O67:08:08.000Z BP Sitting (Pre-Dialysis) 132/70 mmHg BP Sitting (Post-Dialysis) 121/66 mmHg Concurrent Access: falseAV Graft Upper Arm (Left) Arterial Sitting Heart Rate Pre-Dialysis 95 BPM Sitting H eart Rate Post-Dialysis 74 BPM Temperature Pre-Dialysis 98 degF Temperature Post -Dialysis 96.8 degF April 01, 2025 In-Center Hemodialysis Treatment [id number]:18:45.000Z [id number]:15:50.000Z BP Sitting (Pre-Dialysis) 122/57 mmHg BP Sitting (Post-Dialysis) 146/65 mmHg Concurrent Access: falseAV Graft Upper Arm (Left) Arterial Sitting Heart Rate Pre-Dialysis 86 BPM Sitting H eart Rate Post-Dialysis 72 BPM Temperature Pre-Dialysis 97.6 degF Temperature Post -Dialysis 97.6 degF March 29, 2025 In-Center Hemodialysis Treatment [id number]:12:23.000Z 9681-87-22D30:14:00.000Z BP Sitting (Pre-Dialysis) 132/69 mmHg BP Sitting (Post-Dialysis) 127/66 mmHg Concurrent Access: falseAV Graft Upper Arm (Left) Arterial Sitting Heart Rate Pre-Dialysis 90 BPM Sitting H eart Rate Post-Dialysis 75 BPM Temperature Pre-Dialysis 97.7 degF Temperature Post -Dialysis 98.1 degF March 27, 2025 In-Center Hemodialysis Treatment [id number]:06:59.000Z 0764-84-27N10:04:54.000Z BP Sitting (Pre-Dialysis) 155/60 mmHg BP Sitting (Post-Dialysis) 114/51 mmHg Concurrent Access: falseAV Graft Upper Arm (Left) Arterial Sitting Heart Rate Pre-Dialysis 84 BPM Sitting H eart Rate Post-Dialysis 70 BPM Temperature Pre-Dialysis 97.5 degF Temperature Post -Dialysis 97.8 degF March 25, 2025 In-Center Hemodialysis Treatment [id number]:10:49.000Z 2714-84-62V75:04:49.000Z BP Sitting (Pre-Dialysis) 135/58 mmHg BP Sitting (Post-Dialysis) 106/45 mmHg Concurrent Access: falseAV Graft Upper Arm (Left) Arterial BP Standing (Pre-Dialysis) 118/64 mmHg Sitti ng Heart Rate Post-Dialysis 66 BPM Sitting Heart Rate Pre-Dialysis 93 BPM Temperatu re Post-Dialysis 98.2 degF Standing Heart Rate Pre-Dialysis 100 BPM Temperature Pre-Dialysis 97.9 degF March 22, 2025 In-Center Hemodialysis Treatment [id number]:09:37.000Z [id number]:01:37.000Z BP Sitting (Pre-Dialysis) 142/69 mmHg BP Sitting (Post-Dialysis) 118/62 mmHg Concurrent Access: falseAV Graft Upper Arm (Left) Arterial Sitting Heart Rate Pre-Dialysis 94 BPM BP Standi ng (Post-Dialysis) 116/50 mmHg Temperature Pre-Dialysis 98 degF Sitting Heart Ra te Post-Dialysis 76 BPM Standing Heart Rate Post-Renée lysis 77 BPM Temperature Post-Dialysis 97 .8 degF March 20, 2025 In-Center Hemodialysis Treatment [id number]:48:42.000Z 7388-50-94S75:35:42.000Z BP Sitting (Pre-Dialysis) 134/71 mmHg BP Sitting (Post-Dialysis) 127/57 mmHg Concurrent Access: falseAV Graft Upper Arm (Left) Arterial BP Standing (Pre-Dialysis) 142/67 mmHg Sitti ng Heart Rate Post-Dialysis 69 BPM Sitting Heart Rate Pre-Dialysis 62 BPM Temperatu re Post-Dialysis 97.5 degF Standing Heart Rate Pre-Dialysis 59 BPM Temperature Pre-Dialysis 97.8 degF March 18, 2025 In-Center Hemodialysis Treatment [id number]:52:00.000Z 7644-10-64M08:53:46.000Z BP Sitting (Pre-Dialysis) 115/68 mmHg BP Sitting (Post-Dialysis) 114/65 mmHg Concurrent Access: falseAV Graft Upper Arm (Left) Arterial Sitting Heart Rate Pre-Dialysis 99 BPM BP Standing (Post-Dialysis) 110/67 mmHg Temperature Pre-Dialysis 97.9 degF Sitting Heart Ra te Post-Dialysis 76 BPM Standing Heart Rate Post-Renée lysis 77 BPM Temperature Post-Dialysis 97 .8 degF March 15, 2025 In-Center Hemodialysis Treatment [id number]:15:43.000Z 8958-35-67V12:00:43.000Z BP Sitting (Pre-Dialysis) 160/79 mmHg BP Sitting (Post-Dialysis) 121/54 mmHg Concurrent Access: falseAV Graft Upper Arm (Left) Arterial Sitting Heart Rate Pre-Dialysis 89 BPM Sitting H eart Rate Post-Dialysis 68 BPM Temperature Pre-Dialysis 97.8 degF Temperature Post -Dialysis 97.7 degF March 13, 2025 In-Center Hemodialysis Treatment [id number]:14:23.000Z 5043-07-35X22:03:23.000Z BP Sitting (Pre-Dialysis) 149/89 mmHg BP Sitting (Post-Dialysis) 113/59 mmHg Concurrent Access: falseAV Graft Upper Arm (Left) Arterial Sitting Heart Rate Pre-Dialysis 71 BPM Sitting H eart Rate Post-Dialysis 73 BPM Temperature Pre-Dialysis 97.8 degF Temperature Post -Dialysis 98 degF March 11, 2025 In-Center Hemodialysis Treatment [id number]:45:00.000Z 8586-67-49P83:50:38.000Z BP Sitting (Pre-Dialysis) 143/71 mmHg BP Sitting (Post-Dialysis) 124/68 mmHg Concurrent Access: falseAV Graft Upper Arm (Left) Arterial BP Standing (Pre-Dialysis) 152/61 mmHg Sitti ng Heart Rate Post-Dialysis 75 BPM Sitting Heart Rate Pre-Dialysis 94 BPM Temperatu re Post-Dialysis 98.2 degF Standing Heart Rate Pre-Dialysis 102 BPM Temperature Pre-Dialysis 97.8 degF March 08, 2025 In-Center Hemodialysis Treatment [id number]:12:57.000Z 0997-80-73T01:25:02.000Z BP Sitting (Pre-Dialysis) 148/78 mmHg BP Sitting (Post-Dialysis) 145/55 mmHg Concurrent Access: falseAV Graft Upper Arm (Left) Arterial Sitting Heart Rate Pre-Dialysis 96 BPM BP Standing (Post-Dialysis) 137/60 mmHg Temperature Pre-Dialysis 97.6 degF Sitting Heart Ra te Post-Dialysis 65 BPM Standing Heart Rate Post-Renée lysis 66 BPM Temperature Post-Dialysis 97 .8 degF March 06, 2025 In-Center Hemodialysis Treatment 1862-56-29H02:08:12.000Z 3635-25-48M06:07:11.000Z BP Sitting (Pre-Dialysis) 148/67 mmHg BP Sitting (Post-Dialysis) 99/73 mmHg Concurrent Access: falseAV Graft Upper Arm (Left) Arterial Sitting Heart Rate Pre-Dialysis 93 BPM Sitting H eart Rate Post-Dialysis 82 BPM Temperature Pre-Dialysis 98.2 degF Temperature Post -Dialysis 98 degF March 04, 2025 In-Center Hemodialysis Treatment [id number]:59:39.000Z 8606-95-01O86:00:40.000Z BP Sitting (Pre-Dialysis) 140/65 mmHg BP Sitting (Post-Dialysis) 115/51 mmHg Concurrent Access: falseAV Graft Upper Arm (Left) Arterial Sitting Heart Rate Pre-Dialysis 97 BPM BP Standing (Post-Dialysis) 142/71 mmHg Temperature Pre-Dialysis 97.6 degF Sitting Heart Ra te Post-Dialysis 78 BPM Standing Heart Rate Post-Renée lysis 100 BPM March 01, 2025 In-Center Hemodialysis Treatment [id number]:11:15.000Z 7379-77-97A59:04:15.000Z BP Sitting (Pre-Dialysis) 151/76 mmHg BP Sitting (Post-Dialysis) 102/54 mmHg Concurrent Access: falseAV Graft Upper Arm (Left) Arterial Sitting Heart Rate Pre-Dialysis 95 BPM BP Standing (Post-Dialysis) 122/57 mmHg Temperature Pre-Dialysis 97.6 degF Sitting Heart Ra te Post-Dialysis 89 BPM Standing Heart Rate Post-Renée lysis 79 BPM Temperature Post-Dialysis 97 .4 degF February 27, 2025 In-Center Hemodialysis Treatment [id number]:10:18.000Z 3046-53-91J91:06:00.000Z BP Sitting (Pre-Dialysis) 136/68 mmHg BP Sitting (Post-Dialysis) 118/83 mmHg Concurrent Access: falseAV Graft Upper Arm (Left) Arterial Sitting Heart Rate Pre-Dialysis 105 BPM Sitting H eart Rate Post-Dialysis 76 BPM Temperature Pre-Dialysis 97.5 degF Temperature Post -Dialysis 98.2 degF February 25, 2025 In-Center Hemodialysis Treatment [id number]:07:10.000Z 6901-17-34F35:10:10.000Z BP Sitting (Pre-Dialysis) 129/56 mmHg BP Sitting (Post-Dialysis) 144/42 mmHg Concurrent Access: falseAV Graft Upper Arm (Left) Arterial BP Standing (Pre-Dialysis) 139/61 mmHg BP Standing (P ost-Dialysis) 126/68 mmHg Sitting Heart Rate Pre-Dialysis 90 BPM Sitting Heart Rate Post-Dialysis 79 BPM Standing Heart Rate Pre-Dialysis 100 BPM Standing Heart Rate Post-Dialysis 74 BPM Temperature Pre-Dialysis 98.1 degF Temperature Post -Dialysis 97.8 degF February 22, 2025 In-Center Hemodialysis Treatment [id number]:45:21.000Z 8531-39-63K69:47:21.000Z BP Sitting (Pre-Dialysis) 162/76 mmHg BP Sitting (Post-Dialysis) 131/56 mmHg Concurrent Access: falseAV Graft Upper Arm (Left) Arterial Sitting Heart Rate Pre-Dialysis 101 BPM Sitting H eart Rate Post-Dialysis 78 BPM Temperature Pre-Dialysis 98 degF Temperature Post -Dialysis 98.2 degF February 20, 2025 In-Center Hemodialysis Treatment [id number]:54:48.000Z 4262-08-80Y10:55:49.000Z BP Sitting (Pre-Dialysis) 145/67 mmHg BP Sitting (Post-Dialysis) 133/59 mmHg Concurrent Access: falseAV Graft Upper Arm (Left) Arterial Sitting Heart Rate Pre-Dialysis 86 BPM Sitting H eart Rate Post-Dialysis 76 BPM Temperature Pre-Dialysis 98 degF Temperature Post -Dialysis 97.7 degF February 18, 2025 In-Center Hemodialysis Treatment 0716-48-36D36:48:45.000Z 6819-17-84U85:48:44.000Z BP Sitting (Pre-Dialysis) 132/108 mmHg BP Sitting (Post-Dialysis) 111/69 mmHg Concurrent Access: falseAV Graft Upper Arm (Left) Arterial Sitting Heart Rate Pre-Dialysis 78 BPM Sitting H eart Rate Post-Dialysis 76 BPM Temperature Pre-Dialysis 98 degF Temperature Post -Dialysis 97.4 degF February 15, 2025 In-Center Hemodialysis Treatment 4358-09-81A39:02:38.000Z 4103-25-20H27:04:39.000Z BP Sitting (Pre-Dialysis) 147/70 mmHg BP Sitting (Post-Dialysis) 134/61 mmHg Concurrent Access: falseAV Graft Upper Arm (Left) Arterial BP Standing (Pre-Dialysis) 162/138 mmHg Sitti ng Heart Rate Post-Dialysis 68 BPM Sitting Heart Rate Pre-Dialysis 93 BPM Temperatu re Post-Dialysis 97.2 degF Standing Heart Rate Pre-Dialysis 75 BPM Temperature Pre-Dialysis 98.2 degF February 13, 2025 In-Center Hemodialysis Treatment [id number]:57:13.000Z 7125-70-50L31:02:13.000Z BP Sitting (Pre-Dialysis) 120/65 mmHg BP Sitting (Post-Dialysis) 135/47 mmHg Concurrent Access: falseAV Graft Upper Arm (Left) Arterial Sitting Heart Rate Pre-Dialysis 87 BPM BP Standing (Post-Dialysis) 120/54 mmHg Temperature Pre-Dialysis 98.4 degF Sitting Heart Ra te Post-Dialysis 76 BPM Standing Heart Rate Post-Renée lysis 77 BPM Temperature Post-Dialysis 97 .8 degF February 11, 2025 In-Center Hemodialysis Treatment 4527-72-12H55:02:56.000Z 5259-32-98L90:01:57.000Z BP Sitting (Pre-Dialysis) 159/65 mmHg BP Sitting (Post-Dialysis) 128/69 mmHg Concurrent Access: falseAV Graft Upper Arm (Left) Arterial Sitting Heart Rate Pre-Dialysis 98 BPM BP Standi ng (Post-Dialysis) 117/69 mmHg Temperature Pre-Dialysis 98 degF Sitting Heart Ra te Post-Dialysis 66 BPM Standing Heart Rate Post-Renée lysis 66 BPM Temperature Post-Dialysis 97 .4 degF February 08, 2025 In-Center Hemodialysis Treatment 9467-88-04Y66:50:12.000Z 8691-11-77Y69:45:13.000Z BP Sitting (Pre-Dialysis) 145/78 mmHg BP Sitting (Post-Dialysis) 92/51 mmHg Concurrent Access: falseAV Graft Upper Arm (Left) Arterial Sitting Heart Rate Pre-Dialysis 97 BPM BP Standi ng (Post-Dialysis) 100/69 mmHg Temperature Pre-Dialysis 98 degF Sitting Heart Ra te Post-Dialysis 75 BPM Standing Heart Rate Post-Renée lysis 78 BPM Temperature Post-Dialysis 98 .2 degF February 06, 2025 In-Center Hemodialysis Treatment 9958-77-15M59:01:29.000Z 6714-31-52Y25:04:30.000Z BP Sitting (Pre-Dialysis) 147/76 mmHg BP Sitting (Post-Dialysis) 126/55 mmHg Concurrent Access: falseAV Graft Upper Arm (Left) Arterial Sitting Heart Rate Pre-Dialysis 103 BPM Sitting H eart Rate Post-Dialysis 78 BPM Temperature Pre-Dialysis 97.7 degF Temperature Post -Dialysis 97.9 degF February 04, 2025 In-Center Hemodialysis Treatment [id number]:53:30.000Z 8261-31-49J87:54:31.000Z BP Sitting (Pre-Dialysis) 163/93 mmHg BP Sitting (Post-Dialysis) 125/53 mmHg Concurrent Access: falseAV Graft Upper Arm (Left) Arterial Sitting Heart Rate Pre-Dialysis 115 BPM BP Standing (Post-Dialysis) 120/49 mmHg Temperature Pre-Dialysis 97.9 degF Sitting Heart Ra te Post-Dialysis 73 BPM Standing Heart Rate Post-Renée lysis 71 BPM Temperature Post-Dialysis 98 .1 degF February 01, 2025 In-Center Hemodialysis Treatment BP Sitting (Pre-Dialysis) 135/65 mmHg Concurrent Access: false BP Standing (Pre-Dialysis) 145/66 mmHg Sitting Heart Rate Pre-Dialysis 88 BPM Standing Heart Rate Pre-Dialysis 91 BPM Temperature Pre-Dialysis 97.2 degF February 01, 2025 In-Center Hemodialysis Treatment 8487-68-16V02:41:00.000Z 5935-88-65E57:40:00.000Z BP Sitting (Pre-Dialysis) 141/67 mmHg BP Sitting (Post-Dialysis) 135/65 mmHg Concurrent Access: falseAV Graft Upper Arm (Left) Arterial BP Standing (Pre-Dialysis) 139/53 mmHg BP Standing (P ost-Dialysis) 145/66 mmHg Sitting Heart Rate Pre-Dialysis 81 BPM Sitting Heart Rate Post-Dialysis 88 BPM Standing Heart Rate Pre-Dialysis 84 BPM Standing Heart Rate Post-Dialysis 91 BPM January 30, 2025 In-Center Hemodialysis Treatment [id number]:43:09.000Z 9209-04-59M21:39:09.000Z BP Sitting (Pre-Dialysis) 146/72 mmHg BP Sitting (Post-Dialysis) 91/62 mmHg Concurrent Access: falseAV Graft Upper Arm (Left) Arterial Sitting Heart Rate Pre-Dialysis 113 BPM Sitting H eart Rate Post-Dialysis 70 BPM Temperature Pre-Dialysis 98.2 degF Temperature Post -Dialysis 98.2 degF January 28, 2025 In-Center Hemodialysis Treatment 5158-66-47W76:00:00.000Z 5821-98-39V62:46:50.000Z BP Sitting (Pre-Dialysis) 147/69 mmHg BP Sitting (Post-Dialysis) 123/58 mmHg Concurrent Access: falseAV Graft Upper Arm (Left) Arterial BP Standing (Pre-Dialysis) 139/64 mmHg BP Standing (P ost-Dialysis) 100/59 mmHg Sitting Heart Rate Pre-Dialysis 99 BPM Sitting Heart Rate Post-Dialysis 69 BPM Standing Heart Rate Pre-Dialysis 105 BPM Standing Heart Rate Post-Dialysis 71 BPM Temperature Pre-Dialysis 97.3 degF Temperature Post -Dialysis 97.7 degF January 25, 2025 In-Center Hemodialysis Treatment [id number]:54:01.000Z 0456-70-44T35:54:01.000Z BP Sitting (Pre-Dialysis) 125/65 mmHg BP Sitting (Post-Dialysis) 121/48 mmHg Concurrent Access: falseAV Graft Upper Arm (Left) Arterial Sitting Heart Rate Pre-Dialysis 85 BPM BP Standi ng (Post-Dialysis) 141/67 mmHg Temperature Pre-Dialysis 98 degF Sitting Heart Ra te Post-Dialysis 70 BPM Standing Heart Rate Post-Renée lysis 78 BPM Temperature Post-Dialysis 97 .4 degF January 23, 2025 In-Center Hemodialysis Treatment 5211-19-98W33:46:47.000Z 1417-78-66W73:59:47.000Z BP Sitting (Pre-Dialysis) 127/55 mmHg BP Sitting (Post-Dialysis) 110/56 mmHg Concurrent Access: falseAV Graft Upper Arm (Left) Arterial BP Standing (Pre-Dialysis) 122/55 mmHg BP Standing (P ost-Dialysis) 128/50 mmHg Sitting Heart Rate Pre-Dialysis 87 BPM Sitting Heart Rate Post-Dialysis 67 BPM Standing Heart Rate Pre-Dialysis 85 BPM Standing Heart Rate Post-Dialysis 69 BPM Temperature Pre-Dialysis 97.9 degF Temperature Post -Dialysis 98 degF January 21, 2025 In-Center Hemodialysis Treatment 5152-00-07V92:57:00.000Z 8882-52-70T97:06:21.000Z BP Sitting (Pre-Dialysis) 145/65 mmHg BP Sitting (Post-Dialysis) 119/56 mmHg Concurrent Access: falseAV Graft Upper Arm (Left) Arterial BP Standing (Pre-Dialysis) 149/62 mmHg BP Standing (P ost-Dialysis) 118/53 mmHg Sitting Heart Rate Pre-Dialysis 90 BPM Sitting Heart Rate Post-Dialysis 73 BPM Standing Heart Rate Pre-Dialysis 99 BPM Standing Heart Rate Post-Dialysis 75 BPM Temperature Pre-Dialysis 97.3 degF Temperature Post -Dialysis 97.1 degF January 18, 2025 In-Center Hemodialysis Treatment 8303-23-04A07:59:24.000Z 4838-08-88F56:57:25.000Z BP Sitting (Pre-Dialysis) 114/51 mmHg BP Sitting (Post-Dialysis) 126/66 mmHg Concurrent Access: falseAV Graft Upper Arm (Left) Arterial BP Standing (Pre-Dialysis) 136/60 mmHg Sitti ng Heart Rate Post-Dialysis 76 BPM Sitting Heart Rate Pre-Dialysis 96 BPM Temperatu re Post-Dialysis 97.7 degF Standing Heart Rate Pre-Dialysis 104 BPM Temperature Pre-Dialysis 97.7 degF January 16, 2025 In-Center Hemodialysis Treatment 9541-42-32Q84:52:51.000Z 7317-70-96O85:51:52.000Z BP Sitting (Pre-Dialysis) 132/58 mmHg BP Sitting (Post-Dialysis) 118/63 mmHg Concurrent Access: falseAV Graft Upper Arm (Left) Arterial BP Standing (Pre-Dialysis) 162/71 mmHg Sitti ng Heart Rate Post-Dialysis 72 BPM Sitting Heart Rate Pre-Dialysis 87 BPM Temperatu re Post-Dialysis 97.8 degF Standing Heart Rate Pre-Dialysis 96 BPM Temperature Pre-Dialysis 97.8 degF January 14, 2025 In-Center Hemodialysis Treatment 8589-30-51S10:04:00.000Z 3540-54-77Y09:06:18.000Z BP Sitting (Pre-Dialysis) 149/72 mmHg BP Sitting (Post-Dialysis) 123/65 mmHg Concurrent Access: falseAV Graft Upper Arm (Left) Arterial Sitting Heart Rate Pre-Dialysis 100 BPM Sitting H eart Rate Post-Dialysis 74 BPM Temperature Pre-Dialysis 97.6 degF Temperature Post -Dialysis 98.2 degF January 11, 2025 In-Center Hemodialysis Treatment [id number]:34:29.000Z 9736-57-67G36:34:29.000Z BP Sitting (Pre-Dialysis) 127/63 mmHg BP Sitting (Post-Dialysis) 109/56 mmHg Concurrent Access: falseAV Graft Upper Arm (Left) Arterial Sitting Heart Rate Pre-Dialysis 86 BPM Sitting H eart Rate Post-Dialysis 74 BPM Temperature Pre-Dialysis 97.5 degF Temperature Post -Dialysis 97.7 degF January 09, 2025 In-Center Hemodialysis Treatment 3433-59-70U11:54:55.000Z 0272-63-37U33:57:55.000Z BP Sitting (Pre-Dialysis) 113/67 mmHg BP Sitting (Post-Dialysis) 98/57 mmHg Concurrent Access: falseAV Graft Upper Arm (Left) Arterial BP Standing (Pre-Dialysis) 146/66 mmHg Sitti ng Heart Rate Post-Dialysis 82 BPM Sitting Heart Rate Pre-Dialysis 84 BPM Temperatu re Post-Dialysis 97.8 degF Standing Heart Rate Pre-Dialysis 91 BPM Temperature Pre-Dialysis 97.2 degF January 07, 2025 In-Center Hemodialysis Treatment 1923-20-91C08:49:23.000Z 2488-81-55L37:49:23.000Z BP Sitting (Pre-Dialysis) 126/83 mmHg BP Sitting (Post-Dialysis) 104/64 mmHg Concurrent Access: falseAV Graft Upper Arm (Left) Arterial BP Standing (Pre-Dialysis) 148/62 mmHg BP Standing (P ost-Dialysis) 101/48 mmHg Sitting Heart Rate Pre-Dialysis 79 BPM Sitting Heart Rate Post-Dialysis 83 BPM Standing Heart Rate Pre-Dialysis 81 BPM Standing Heart Rate Post-Dialysis 69 BPM Temperature Pre-Dialysis 97.2 degF Temperature Post -Dialysis 97.8 degF January 04, 2025 In-Center Hemodialysis Treatment 5741-37-04T35:01:50.000Z 9041-56-82N56:00:50.000Z BP Sitting (Pre-Dialysis) 173/97 mmHg BP Sitting (Post-Dialysis) 112/61 mmHg Concurrent Access: falseAV Graft Upper Arm (Left) Arterial BP Standing (Pre-Dialysis) 160/66 mmHg Sitti ng Heart Rate Post-Dialysis 76 BPM Sitting Heart Rate Pre-Dialysis 89 BPM Temperatu re Post-Dialysis 98.1 degF Standing Heart Rate Pre-Dialysis 94 BPM Temperature Pre-Dialysis 97.5 degF January 02, 2025 In-Center Hemodialysis Treatment [id number]:22:17.000Z 1878-73-42X92:25:17.000Z BP Sitting (Pre-Dialysis) 140/60 mmHg BP Sitting (Post-Dialysis) 112/58 mmHg Concurrent Access: falseAV Graft Upper Arm (Left) Arterial BP Standing (Pre-Dialysis) 150/71 mmHg BP Standing (P ost-Dialysis) 120/60 mmHg Sitting Heart Rate Pre-Dialysis 104 BPM Sitting Heart Rate Post-Dialysis 73 BPM Standing Heart Rate Pre-Dialysis 114 BPM Standing Heart Rate Post-Dialysis 77 BPM Temperature Pre-Dialysis 97.4 degF Temperature Post -Dialysis 98.5 degF December 31, 2024 In-Center Hemodialysis Treatment [id number]:33:39.000Z 7286-09-31H62:32:39.000Z BP Sitting (Pre-Dialysis) 126/67 mmHg BP Sitting (Post-Dialysis) 93/61 mmHg Concurrent Access: falseAV Graft Upper Arm (Left) Arterial Sitting Heart Rate Pre-Dialysis 89 BPM Sitting H eart Rate Post-Dialysis 85 BPM Temperature Pre-Dialysis 97.3 degF Temperature Post -Dialysis 97.7 degF December 28, 2024 In-Center Hemodialysis Treatment 2510-32-25Y62:29:00.000Z 4190-41-36J74:31:02.000Z BP Sitting (Pre-Dialysis) 127/70 mmHg BP Sitting (Post-Dialysis) 115/54 mmHg Concurrent Access: falseAV Graft Upper Arm (Left) Arterial BP Standing (Pre-Dialysis) 148/73 mmHg BP Standing (P ost-Dialysis) 114/60 mmHg Sitting Heart Rate Pre-Dialysis 79 BPM Sitting Heart Rate Post-Dialysis 69 BPM Standing Heart Rate Pre-Dialysis 89 BPM Standing Heart Rate Post-Dialysis 70 BPM Temperature Pre-Dialysis 98 degF Temperature Post -Dialysis 97.8 degF December 26, 2024 In-Center Hemodialysis Treatment 1602-74-58Z89:51:37.000Z 9434-22-66C04:53:38.000Z BP Sitting (Pre-Dialysis) 139/69 mmHg BP Sitting (Post-Dialysis) 115/58 mmHg Concurrent Access: falseAV Graft Upper Arm (Left) Arterial BP Standing (Pre-Dialysis) 166/72 mmHg BP Standing (P ost-Dialysis) 108/57 mmHg Sitting Heart Rate Pre-Dialysis 94 BPM Sitting Heart Rate Post-Dialysis 70 BPM Standing Heart Rate Pre-Dialysis 97 BPM Standing Heart Rate Post-Dialysis 68 BPM Temperature Pre-Dialysis 97.6 degF Temperature Post -Dialysis 97.8 degF December 24, 2024 In-Center Hemodialysis Treatment [id number]:14:28.000Z 4954-87-03V17:18:29.000Z BP Sitting (Pre-Dialysis) 133/73 mmHg BP Sitting (Post-Dialysis) 110/68 mmHg Concurrent Access: falseAV Graft Upper Arm (Left) Arterial BP Standing (Pre-Dialysis) 155/73 mmHg Sitting Heart Rate Post-Dialysis 74 BPM Sitting Heart Rate Pre-Dialysis 100 BPM Temperatu re Post-Dialysis 98 degF Standing Heart Rate Pre-Dialysis 102 BPM Temperature Pre-Dialysis 97.7 degF December 21, 2024 In-Center Hemodialysis Treatment [id number]:33:15.000Z 4973-89-57K63:34:16.000Z BP Sitting (Pre-Dialysis) 141/57 mmHg BP Sitting (Post-Dialysis) 105/62 mmHg Concurrent Access: falseAV Graft Upper Arm (Left) Arterial BP Standing (Pre-Dialysis) 134/87 mmHg Sitti ng Heart Rate Post-Dialysis 80 BPM Sitting Heart Rate Pre-Dialysis 98 BPM Temperatu re Post-Dialysis 98.2 degF Standing Heart Rate Pre-Dialysis 94 BPM Temperature Pre-Dialysis 97.8 degF December 19, 2024 In-Center Hemodialysis Treatment 0790-10-29L65:32:00.000Z 2890-21-85X87:39:38.000Z BP Sitting (Pre-Dialysis) 164/75 mmHg BP Sitting (Post-Dialysis) 101/68 mmHg Concurrent Access: falseAV Graft Upper Arm (Left) Arterial BP Standing (Pre-Dialysis) 149/57 mmHg BP Standing (P ost-Dialysis) 105/67 mmHg Sitting Heart Rate Pre-Dialysis 101 BPM Sitting Heart Rate Post-Dialysis 80 BPM Standing Heart Rate Pre-Dialysis 99 BPM Standing Heart Rate Post-Dialysis 88 BPM Temperature Pre-Dialysis 97.6 degF Temperature Post -Dialysis 98 degF December 17, 2024 In-Center Hemodialysis Treatment [id number]:56:00.000Z 6578-03-00I02:57:10.000Z BP Sitting (Pre-Dialysis) 164/70 mmHg BP Sitting (Post-Dialysis) 94/49 mmHg Concurrent Access: falseAV Graft Upper Arm (Left) Arterial BP Standing (Pre-Dialysis) 147/71 mmHg BP Standing (P ost-Dialysis) 103/59 mmHg Sitting Heart Rate Pre-Dialysis 90 BPM Sitting Heart Rate Post-Dialysis 70 BPM Standing Heart Rate Pre-Dialysis 90 BPM Standing Heart Rate Post-Dialysis 74 BPM Temperature Pre-Dialysis 97.6 degF Temperature Post -Dialysis 97.3 degF December 14, 2024 In-Center Hemodialysis Treatment 0085-07-29X26:44:54.000Z 6160-46-84W06:40:54.000Z BP Sitting (Pre-Dialysis) 131/115 mmHg BP Sitting (Post-Dialysis) 119/60 mmHg Concurrent Access: falseAV Graft Upper Arm (Left) Arterial Sitting Heart Rate Pre-Dialysis 108 BPM Sitting H eart Rate Post-Dialysis 73 BPM Temperature Pre-Dialysis 98.2 degF Temperature Post -Dialysis 97.4 degF December 12, 2024 In-Center Hemodialysis Treatment [id number]:51:21.000Z 7706-68-80Q22:49:21.000Z BP Sitting (Pre-Dialysis) 142/66 mmHg BP Sitting (Post-Dialysis) 143/96 mmHg Concurrent Access: falseAV Graft Upper Arm (Left) Arterial BP Standing (Pre-Dialysis) 155/72 mmHg BP Standing (P ost-Dialysis) 130/51 mmHg Sitting Heart Rate Pre-Dialysis 87 BPM Sitting Heart Rate Post-Dialysis 66 BPM Standing Heart Rate Pre-Dialysis 105 BPM Standing Heart Rate Post-Dialysis 99 BPM Temperature Pre-Dialysis 97.3 degF Temperature Post -Dialysis 97.6 degF December 10, 2024 In-Center Hemodialysis Treatment [id number]:18:00.000Z 0978-94-24Q88:08:06.000Z BP Sitting (Pre-Dialysis) 142/65 mmHg BP Sitting (Post-Dialysis) 106/71 mmHg Concurrent Access: falseAV Graft Upper Arm (Left) Arterial BP Standing (Pre-Dialysis) 154/72 mmHg Sitting Heart Rate Post-Dialysis 76 BPM Sitting Heart Rate Pre-Dialysis 88 BPM Temperatu re Post-Dialysis 98 degF Standing Heart Rate Pre-Dialysis 90 BPM Temperature Pre-Dialysis 98.1 degF December 07, 2024 In-Center Hemodialysis Treatment [id number]:33:53.000Z 4889-72-17N04:31:53.000Z BP Sitting (Pre-Dialysis) 119/96 mmHg BP Sitting (Post-Dialysis) 128/66 mmHg Concurrent Access: falseAV Graft Upper Arm (Left) Arterial BP Standing (Pre-Dialysis) 132/66 mmHg BP Standing (P ost-Dialysis) 110/56 mmHg Sitting Heart Rate Pre-Dialysis 93 BPM Sitting Heart Rate Post-Dialysis 75 BPM Standing Heart Rate Pre-Dialysis 93 BPM Standing Heart Rate Post-Dialysis 72 BPM Temperature Pre-Dialysis 97.2 degF Temperature Post -Dialysis 97.6 degF December 05, 2024 In-Center Hemodialysis Treatment [id number]:41:00.000Z 5258-37-05A77:44:20.000Z BP Sitting (Pre-Dialysis) 146/65 mmHg BP Sitting (Post-Dialysis) 91/56 mmHg Concurrent Access: falseAV Graft Upper Arm (Left) Arterial BP Standing (Pre-Dialysis) 146/73 mmHg BP Standing (P ost-Dialysis) 118/64 mmHg Sitting Heart Rate Pre-Dialysis 90 BPM Sitting Heart Rate Post-Dialysis 74 BPM Standing Heart Rate Pre-Dialysis 94 BPM Standing Heart Rate Post-Dialysis 78 BPM Temperature Pre-Dialysis 98 degF Temperature Post -Dialysis 97.3 degF December 03, 2024 In-Center Hemodialysis Treatment [id number]:29:31.000Z 9201-05-48Z73:30:31.000Z BP Sitting (Pre-Dialysis) 131/74 mmHg BP Sitting (Post-Dialysis) 116/92 mmHg Concurrent Access: falseAV Graft Upper Arm (Left) Arterial BP Standing (Pre-Dialysis) 153/65 mmHg Sitting Heart Rate Post-Dialysis 73 BPM Sitting Heart Rate Pre-Dialysis 93 BPM Temperatu re Post-Dialysis 98 degF Standing Heart Rate Pre-Dialysis 97 BPM Temperature Pre-Dialysis 97 degF November 30, 2024 In-Center Hemodialysis Treatment 6436-80-53O16:31:00.000Z 3370-89-22X64:32:45.000Z BP Sitting (Pre-Dialysis) 143/81 mmHg BP Sitting (Post-Dialysis) 104/54 mmHg Concurrent Access: falseAV Graft Upper Arm (Left) Arterial BP Standing (Pre-Dialysis) 139/57 mmHg Sitti ng Heart Rate Post-Dialysis 67 BPM Sitting Heart Rate Pre-Dialysis 99 BPM Temperatu re Post-Dialysis 97.7 degF Standing Heart Rate Pre-Dialysis 101 BPM Temperature Pre-Dialysis 97.2 degF November 28, 2024 In-Center Hemodialysis Treatment [id number]:07:11.000Z 5589-24-04X45:09:12.000Z BP Sitting (Pre-Dialysis) 117/60 mmHg BP Sitting (Post-Dialysis) 135/98 mmHg Concurrent Access: falseAV Graft Upper Arm (Left) Arterial BP Standing (Pre-Dialysis) 119/61 mmHg Sitti ng Heart Rate Post-Dialysis 88 BPM Sitting Heart Rate Pre-Dialysis 93 BPM Temperatu re Post-Dialysis 97.9 degF Standing Heart Rate Pre-Dialysis 92 BPM Temperature Pre-Dialysis 97.9 degF November 26, 2024 In-Center Hemodialysis Treatment 1859-69-05N48:48:12.000Z 8169-26-37E26:48:12.000Z BP Sitting (Pre-Dialysis) 133/62 mmHg BP Sitting (Post-Dialysis) 122/62 mmHg Concurrent Access: falseAV Graft Upper Arm (Left) Arterial Sitting Heart Rate Pre-Dialysis 86 BPM BP Standi ng (Post-Dialysis) 125/57 mmHg Temperature Pre-Dialysis 98 degF Sitting Heart Ra te Post-Dialysis 68 BPM Standing Heart Rate Post-Renée lysis 70 BPM Temperature Post-Dialysis 97 .8 degF November 23, 2024 In-Center Hemodialysis Treatment [id number]:44:55.000Z 6985-36-57P10:44:55.000Z BP Sitting (Pre-Dialysis) 152/69 mmHg BP Sitting (Post-Dialysis) 113/61 mmHg Concurrent Access: falseAV Graft Upper Arm (Left) Arterial BP Standing (Pre-Dialysis) 169/79 mmHg BP Standing (P ost-Dialysis) 112/56 mmHg Sitting Heart Rate Pre-Dialysis 76 BPM Sitting Heart Rate Post-Dialysis 68 BPM Standing Heart Rate Pre-Dialysis 88 BPM Standing Heart Rate Post-Dialysis 67 BPM Temperature Pre-Dialysis 97.5 degF Temperature Post -Dialysis 97.2 degF November 21, 2024 In-Center Hemodialysis Treatment 5866-55-43V09:15:49.000Z 4867-09-50W82:07:49.000Z BP Sitting (Pre-Dialysis) 136/70 mmHg BP Sitting (Post-Dialysis) 131/66 mmHg Concurrent Access: falseAV Graft Upper Arm (Left) Arterial Sitting Heart Rate Pre-Dialysis 87 BPM Sitting H eart Rate Post-Dialysis 72 BPM Temperature Pre-Dialysis 98 degF Temperature Post -Dialysis 98 degF November 19, 2024 In-Center Hemodialysis Treatment [id number]:03:16.000Z 9117-25-01K81:10:16.000Z BP Sitting (Pre-Dialysis) 149/71 mmHg BP Sitting (Post-Dialysis) 125/75 mmHg Concurrent Access: falseAV Graft Upper Arm (Left) Arterial BP Standing (Pre-Dialysis) 122/69 mmHg Sitting Heart Rate Post-Dialysis 70 BPM Sitting Heart Rate Pre-Dialysis 85 BPM Temperatu re Post-Dialysis 98 degF Standing Heart Rate Pre-Dialysis 84 BPM Temperature Pre-Dialysis 97.9 degF November 16, 2024 In-Center Hemodialysis Treatment 6322-03-26R25:23:20.000Z 6229-56-58M91:26:20.000Z BP Sitting (Pre-Dialysis) 190/78 mmHg BP Sitting (Post-Dialysis) 130/61 mmHg Concurrent Access: falseAV Graft Upper Arm (Left) Arterial Sitting Heart Rate Pre-Dialysis 102 BPM Sitting H eart Rate Post-Dialysis 68 BPM Temperature Pre-Dialysis 97.3 degF Temperature Post -Dialysis 97.6 degF November 14, 2024 In-Center Hemodialysis Treatment [id number]:33:48.000Z 4054-12-74T59:32:49.000Z BP Sitting (Pre-Dialysis) 174/84 mmHg BP Sitting (Post-Dialysis) 126/57 mmHg Concurrent Access: falseAV Graft Upper Arm (Left) Arterial BP Standing (Pre-Dialysis) 142/86 mmHg BP Standing (P ost-Dialysis) 122/70 mmHg Sitting Heart Rate Pre-Dialysis 92 BPM Sitting Heart Rate Post-Dialysis 80 BPM Standing Heart Rate Pre-Dialysis 82 BPM Standing Heart Rate Post-Dialysis 88 BPM Temperature Pre-Dialysis 97.8 degF Temperature Post -Dialysis 97.8 degF November 12, 2024 In-Center Hemodialysis Treatment [id number]:16:00.000Z 0477-60-02L17:15:54.000Z BP Sitting (Pre-Dialysis) 153/67 mmHg BP Sitting (Post-Dialysis) 102/53 mmHg Concurrent Access: falseAV Graft Upper Arm (Left) Arterial Sitting Heart Rate Pre-Dialysis 93 BPM Sitting H eart Rate Post-Dialysis 71 BPM Temperature Pre-Dialysis 97 degF November 09, 2024 In-Center Hemodialysis Treatment 8225-69-10N61:16:21.000Z 1550-52-63V67:24:28.000Z BP Sitting (Pre-Dialysis) 159/74 mmHg BP Sitting (Post-Dialysis) 134/58 mmHg Concurrent Access: falseAV Graft Upper Arm (Left) Arterial Sitting Heart Rate Pre-Dialysis 87 BPM Sitting H eart Rate Post-Dialysis 74 BPM Temperature Pre-Dialysis 97.5 degF Temperature Post -Dialysis 98.2 degF November 07, 2024 In-Center Hemodialysis Treatment [id number]:08:55.000Z 5646-82-78M11:08:56.000Z BP Sitting (Pre-Dialysis) 143/66 mmHg BP Sitting (Post-Dialysis) 122/58 mmHg Concurrent Access: falseAV Graft Upper Arm (Left) Arterial BP Standing (Pre-Dialysis) 135/73 mmHg Sitti ng Heart Rate Post-Dialysis 72 BPM Sitting Heart Rate Pre-Dialysis 86 BPM Temperatu re Post-Dialysis 97.7 degF Standing Heart Rate Pre-Dialysis 85 BPM Temperature Pre-Dialysis 97.8 degF November 05, 2024 In-Center Hemodialysis Treatment 9728-10-11J41:10:14.000Z 3463-83-30V34:13:15.000Z BP Sitting (Pre-Dialysis) 168/87 mmHg BP Sitting (Post-Dialysis) 110/68 mmHg Concurrent Access: falseAV Graft Upper Arm (Left) Arterial BP Standing (Pre-Dialysis) 140/78 mmHg BP Standing (P ost-Dialysis) 106/60 mmHg Sitting Heart Rate Pre-Dialysis 95 BPM Sitting Heart Rate Post-Dialysis 85 BPM Standing Heart Rate Pre-Dialysis 98 BPM Standing Heart Rate Post-Dialysis 64 BPM Temperature Pre-Dialysis 97.4 degF Temperature Post -Dialysis 97.8 degF November 02, 2024 In-Center Hemodialysis Treatment 1566-22-42N30:30:46.000Z 7884-48-52B13:30:47.000Z BP Sitting (Pre-Dialysis) 166/73 mmHg BP Sitting (Post-Dialysis) 107/59 mmHg Concurrent Access: falseAV Graft Upper Arm (Left) Arterial Sitting Heart Rate Pre-Dialysis 100 BPM Sitting H eart Rate Post-Dialysis 83 BPM Temperature Pre-Dialysis 98 degF Temperature Post -Dialysis 97.8 degF October 31, 2024 In-Center Hemodialysis Treatment 5351-10-09Z84:10:00.000Z 8664-24-84B80:11:52.000Z BP Sitting (Pre-Dialysis) 171/80 mmHg BP Sitting (Post-Dialysis) 108/64 mmHg Concurrent Access: falseAV Graft Upper Arm (Left) Arterial BP Standing (Pre-Dialysis) 146/71 mmHg Sitti ng Heart Rate Post-Dialysis 80 BPM Sitting Heart Rate Pre-Dialysis 103 BPM Temperatu re Post-Dialysis 97.2 degF Standing Heart Rate Pre-Dialysis 74 BPM Temperature Pre-Dialysis 97.5 degF October 29, 2024 In-Center Hemodialysis Treatment [id number]:03:39.000Z 0251-57-89J49:06:40.000Z BP Sitting (Pre-Dialysis) 132/69 mmHg BP Sitting (Post-Dialysis) 106/53 mmHg Concurrent Access: falseAV Graft Upper Arm (Left) Arterial Sitting Heart Rate Pre-Dialysis 87 BPM BP Standi ng (Post-Dialysis) 119/63 mmHg Temperature Pre-Dialysis 98 degF Sitting Heart Ra te Post-Dialysis 65 BPM Standing Heart Rate Post-Renée lysis 74 BPM Temperature Post-Dialysis 97 .8 degF October 26, 2024 In-Center Hemodialysis Treatment 8475-01-75R83:28:30.000Z 7068-75-38J25:29:29.000Z BP Sitting (Pre-Dialysis) 127/71 mmHg BP Sitting (Post-Dialysis) 116/59 mmHg Concurrent Access: falseAV Graft Upper Arm (Left) Arterial Sitting Heart Rate Pre-Dialysis 91 BPM Sitting H eart Rate Post-Dialysis 70 BPM Temperature Pre-Dialysis 97.6 degF Temperature Post -Dialysis 97.9 degF October 24, 2024 In-Center Hemodialysis Treatment 1857-09-56B17:58:31.000Z 4972-62-88P94:02:32.000Z BP Sitting (Pre-Dialysis) 143/61 mmHg BP Sitting (Post-Dialysis) 101/79 mmHg Concurrent Access: falseAV Graft Upper Arm (Left) Arterial Sitting Heart Rate Pre-Dialysis 98 BPM BP Standing (Post-Dialysis) 122/82 mmHg Temperature Pre-Dialysis 97.8 degF Sitting Heart Ra te Post-Dialysis 68 BPM Standing Heart Rate Post-Renée lysis 71 BPM Temperature Post-Dialysis 97 .3 degF October 21, 2024 In-Center Hemodialysis Treatment 2334-15-26S68:26:00.000Z 9124-93-36U41:29:42.000Z BP Sitting (Pre-Dialysis) 131/57 mmHg BP Sitting (Post-Dialysis) 116/63 mmHg Concurrent Access: falseAV Graft Upper Arm (Left) Arterial BP Standing (Pre-Dialysis) 153/76 mmHg BP Standing (P ost-Dialysis) 141/63 mmHg Sitting Heart Rate Pre-Dialysis 96 BPM Sitting Heart Rate Post-Dialysis 73 BPM Standing Heart Rate Pre-Dialysis 98 BPM Standing Heart Rate Post-Dialysis 82 BPM Temperature Pre-Dialysis 97.7 degF Temperature Post -Dialysis 98 degF October 19, 2024 In-Center Hemodialysis Treatment 4516-33-78H15:33:06.000Z 7972-93-34E81:34:07.000Z BP Sitting (Pre-Dialysis) 165/67 mmHg BP Sitting (Post-Dialysis) 132/63 mmHg Concurrent Access: falseAV Graft Upper Arm (Left) Arterial Sitting Heart Rate Pre-Dialysis 95 BPM BP Standing (Post-Dialysis) 120/55 mmHg Temperature Pre-Dialysis 97.5 degF Sitting Heart Ra te Post-Dialysis 76 BPM Standing Heart Rate Post-Renée lysis 78 BPM Temperature Post-Dialysis 97 .8 degF October 17, 2024 In-Center Hemodialysis Treatment 1789-87-17O69:27:00.000Z 8459-18-78C35:34:33.000Z BP Sitting (Pre-Dialysis) 128/69 mmHg BP Sitting (Post-Dialysis) 139/81 mmHg Concurrent Access: falseAV Graft Upper Arm (Left) Arterial BP Standing (Pre-Dialysis) 153/77 mmHg Sitti ng Heart Rate Post-Dialysis 72 BPM Sitting Heart Rate Pre-Dialysis 90 BPM Temperatu re Post-Dialysis 98.1 degF Standing Heart Rate Pre-Dialysis 111 BPM Temperature Pre-Dialysis 97.8 degF October 14, 2024 In-Center Hemodialysis Treatment 2017-29-19F75:09:46.000Z 3389-01-20L20:12:47.000Z BP Sitting (Pre-Dialysis) 131/65 mmHg BP Sitting (Post-Dialysis) 121/61 mmHg Concurrent Access: falseAV Graft Upper Arm (Left) Arterial BP Standing (Pre-Dialysis) 146/70 mmHg Sitti ng Heart Rate Post-Dialysis 65 BPM Sitting Heart Rate Pre-Dialysis 101 BPM Temperatu re Post-Dialysis 98.3 degF Standing Heart Rate Pre-Dialysis 89 BPM Temperature Pre-Dialysis 97.8 degF October 10, 2024 In-Center Hemodialysis Treatment 3379-47-98D42:48:40.000Z 4993-54-27M05:51:41.000Z BP Sitting (Pre-Dialysis) 109/67 mmHg BP Sitting (Post-Dialysis) 116/67 mmHg Concurrent Access: falseAV Graft Upper Arm (Left) Arterial Sitting Heart Rate Pre-Dialysis 81 BPM BP Standi ng (Post-Dialysis) 100/65 mmHg Temperature Pre-Dialysis 98 degF Sitting Heart Ra te Post-Dialysis 76 BPM Standing Heart Rate Post-Renée lysis 71 BPM Temperature Post-Dialysis 97 .2 degF October 09, 2024 In-Center Hemodialysis Treatment 7162-70-93G45:32:32.000Z 7688-28-69Y18:33:32.000Z BP Sitting (Pre-Dialysis) 132/74 mmHg BP Sitting (Post-Dialysis) 143/77 mmHg Concurrent Access: falseAV Graft Upper Arm (Left) Arterial Sitting Heart Rate Pre-Dialysis 81 BPM BP Standi ng (Post-Dialysis) 132/66 mmHg Temperature Pre-Dialysis 98 degF Sitting Heart Ra te Post-Dialysis 65 BPM Standing Heart Rate Post-Renée lysis 67 BPM Temperature Post-Dialysis 97 .3 degF October 08, 2024 In-Center Hemodialysis Treatment 9584-49-80H42:17:57.000Z 9605-95-49D76:18:58.000Z BP Sitting (Pre-Dialysis) 144/78 mmHg BP Sitting (Post-Dialysis) 118/69 mmHg Concurrent Access: falseAV Graft Upper Arm (Left) Arterial Sitting Heart Rate Pre-Dialysis 99 BPM BP Standi ng (Post-Dialysis) 124/60 mmHg Temperature Pre-Dialysis 98 degF Sitting Heart Ra te Post-Dialysis 74 BPM Standing Heart Rate Post-Renée lysis 73 BPM Temperature Post-Dialysis 98 degF October 05, 2024 In-Center Hemodialysis Treatment 8939-18-03L68:41:08.000Z 4571-03-84B54:47:08.000Z BP Sitting (Pre-Dialysis) 113/73 mmHg BP Sitting (Post-Dialysis) 94/61 mmHg Concurrent Access: falseAV Graft Upper Arm (Left) Arterial Sitting Heart Rate Pre-Dialysis 98 BPM Sitting H eart Rate Post-Dialysis 74 BPM Temperature Pre-Dialysis 97.8 degF October 03, 2024 In-Center Hemodialysis Treatment 0182-51-63M46:59:16.000Z 1430-03-82X27:01:15.000Z BP Sitting (Pre-Dialysis) 137/82 mmHg BP Sitting (Post-Dialysis) 115/66 mmHg Concurrent Access: falseAV Graft Upper Arm (Left) Arterial Sitting Heart Rate Pre-Dialysis 93 BPM Sitting H eart Rate Post-Dialysis 74 BPM Temperature Pre-Dialysis 98 degF Temperature Post -Dialysis 97.3 degF October 01, 2024 In-Center Hemodialysis Treatment 4098-11-74Q61:34:02.000Z 2092-00-30O19:35:02.000Z BP Sitting (Pre-Dialysis) 153/56 mmHg BP Sitting (Post-Dialysis) 122/52 mmHg Concurrent Access: falseAV Graft Upper Arm (Left) Arterial BP Standing (Pre-Dialysis) 140/65 mmHg BP Standing (P ost-Dialysis) 114/69 mmHg Sitting Heart Rate Pre-Dialysis 94 BPM Sitting Heart Rate Post-Dialysis 71 BPM Standing Heart Rate Pre-Dialysis 100 BPM Standing Heart Rate Post-Dialysis 79 BPM Temperature Pre-Dialysis 97.8 degF Temperature Post -Dialysis 98 degF September 28, 2024 In-Center Hemodialysis Treatment 4988-72-13G61:32:07.000Z 1375-69-48I70:32:07.000Z BP Sitting (Pre-Dialysis) 127/71 mmHg BP Sitting (Post-Dialysis) 118/63 mmHg Concurrent Access: falseAV Graft Upper Arm (Left) Arterial BP Standing (Pre-Dialysis) 130/61 mmHg Sitti ng Heart Rate Post-Dialysis 74 BPM Sitting Heart Rate Pre-Dialysis 81 BPM Temperatu re Post-Dialysis 97.7 degF Standing Heart Rate Pre-Dialysis 85 BPM Temperature Pre-Dialysis 97.4 degF September 26, 2024 In-Center Hemodialysis Treatment 9257-89-15Q32:58:00.000Z 8221-65-84S75:00:05.000Z BP Sitting (Pre-Dialysis) 110/56 mmHg BP Sitting (Post-Dialysis) 107/64 mmHg Concurrent Access: falseAV Graft Upper Arm (Left) Arterial BP Standing (Pre-Dialysis) 144/64 mmHg Sitti ng Heart Rate Post-Dialysis 78 BPM Sitting Heart Rate Pre-Dialysis 82 BPM Temperatu re Post-Dialysis 97.4 degF Standing Heart Rate Pre-Dialysis 92 BPM Temperature Pre-Dialysis 97.5 degF September 24, 2024 In-Center Hemodialysis Treatment 8423-44-60I69:48:00.000Z 5667-50-07X23:49:54.000Z BP Sitting (Pre-Dialysis) 138/57 mmHg BP Sitting (Post-Dialysis) 118/64 mmHg Concurrent Access: falseAV Graft Upper Arm (Left) Arterial BP Standing (Pre-Dialysis) 140/63 mmHg Sitti ng Heart Rate Post-Dialysis 78 BPM Sitting Heart Rate Pre-Dialysis 81 BPM Temperatu re Post-Dialysis 97.8 degF Standing Heart Rate Pre-Dialysis 97 BPM Temperature Pre-Dialysis 97.4 degF September 21, 2024 In-Center Hemodialysis Treatment 9392-47-18F41:40:49.000Z 9359-20-99Z55:40:49.000Z BP Sitting (Pre-Dialysis) 146/72 mmHg BP Sitting (Post-Dialysis) 124/67 mmHg Concurrent Access: falseAV Graft Upper Arm (Left) Arterial BP Standing (Pre-Dialysis) 102/87 mmHg Sitti ng Heart Rate Post-Dialysis 68 BPM Sitting Heart Rate Pre-Dialysis 95 BPM Temperatu re Post-Dialysis 97.3 degF Standing Heart Rate Pre-Dialysis 93 BPM Temperature Pre-Dialysis 98 degF September 18, 2024 In-Center Hemodialysis Treatment 3077-56-94N86:32:39.000Z 7786-61-07L58:31:40.000Z BP Sitting (Pre-Dialysis) 138/78 mmHg BP Sitting (Post-Dialysis) 105/58 mmHg Concurrent Access: falseAV Graft Upper Arm (Left) Arterial Sitting Heart Rate Pre-Dialysis 96 BPM BP Standing (Post-Dialysis) 101/58 mmHg Temperature Pre-Dialysis 97.6 degF Sitting Heart Ra te Post-Dialysis 71 BPM Standing Heart Rate Post-Renée lysis 69 BPM Temperature Post-Dialysis 97 .8 degF September 16, 2024 In-Center Hemodialysis Treatment 6623-49-70S13:28:31.000Z 9942-14-26Q57:16:31.000Z BP Sitting (Pre-Dialysis) 124/67 mmHg BP Sitting (Post-Dialysis) 107/56 mmHg Concurrent Access: falseAV Graft Upper Arm (Left) Arterial BP Standing (Pre-Dialysis) 140/69 mmHg BP Standing (P ost-Dialysis) 110/59 mmHg Sitting Heart Rate Pre-Dialysis 98 BPM Sitting Heart Rate Post-Dialysis 69 BPM Standing Heart Rate Pre-Dialysis 94 BPM Standing Heart Rate Post-Dialysis 66 BPM Temperature Pre-Dialysis 98 degF Temperature Post -Dialysis 97.8 degF September 14, 2024 In-Center Hemodialysis Treatment 3951-31-41M51:29:25.000Z 7862-06-15W94:11:25.000Z BP Sitting (Pre-Dialysis) 164/68 mmHg BP Sitting (Post-Dialysis) 104/57 mmHg Concurrent Access: falseAV Graft Upper Arm (Left) Arterial Sitting Heart Rate Pre-Dialysis 97 BPM Sitting H eart Rate Post-Dialysis 72 BPM Temperature Pre-Dialysis 97.7 degF Temperature Post -Dialysis 97.9 degF September 12, 2024 In-Center Hemodialysis Treatment 4824-76-47Q55:15:18.000Z 5917-02-18C39:16:19.000Z BP Sitting (Pre-Dialysis) 138/106 mmHg BP Sitting (Post-Dialysis) 113/75 mmHg Concurrent Access: falseAV Graft Upper Arm (Left) Arterial Sitting Heart Rate Pre-Dialysis 96 BPM Sitting H eart Rate Post-Dialysis 58 BPM Temperature Pre-Dialysis 97.9 degF Temperature Post -Dialysis 97 degF September 10, 2024 In-Center Hemodialysis Treatment 9102-55-65F97:44:16.000Z 9065-53-33Q56:45:16.000Z BP Sitting (Pre-Dialysis) 148/71 mmHg BP Sitting (Post-Dialysis) 117/64 mmHg Concurrent Access: falseAV Graft Upper Arm (Left) Arterial BP Standing (Pre-Dialysis) 158/72 mmHg BP Standing (P ost-Dialysis) 110/66 mmHg Sitting Heart Rate Pre-Dialysis 89 BPM Sitting Heart Rate Post-Dialysis 73 BPM Standing Heart Rate Pre-Dialysis 95 BPM Standing Heart Rate Post-Dialysis 73 BPM Temperature Pre-Dialysis 97.8 degF Temperature Post -Dialysis 98 degF September 07, 2024 In-Center Hemodialysis Treatment 0513-91-06L49:55:50.000Z 0151-24-67O65:00:50.000Z BP Sitting (Pre-Dialysis) 139/59 mmHg BP Sitting (Post-Dialysis) 116/66 mmHg Concurrent Access: falseAV Graft Upper Arm (Left) Arterial BP Standing (Pre-Dialysis) 164/62 mmHg BP Standing (P ost-Dialysis) 123/75 mmHg Sitting Heart Rate Pre-Dialysis 87 BPM Sitting Heart Rate Post-Dialysis 70 BPM Standing Heart Rate Pre-Dialysis 94 BPM Standing Heart Rate Post-Dialysis 71 BPM Temperature Pre-Dialysis 97.8 degF Temperature Post -Dialysis 97.5 degF September 05, 2024 In-Center Hemodialysis Treatment 8889-01-47D70:53:15.000Z 3432-82-92I41:55:15.000Z BP Sitting (Pre-Dialysis) 145/87 mmHg BP Sitting (Post-Dialysis) 101/63 mmHg Concurrent Access: falseAV Graft Upper Arm (Left) Arterial BP Standing (Pre-Dialysis) 172/82 mmHg BP Standing (P ost-Dialysis) 115/63 mmHg Sitting Heart Rate Pre-Dialysis 89 BPM Sitting Heart Rate Post-Dialysis 68 BPM Standing Heart Rate Pre-Dialysis 104 BPM Standing Heart Rate Post-Dialysis 70 BPM Temperature Pre-Dialysis 97.8 degF Temperature Post -Dialysis 97.5 degF September 03, 2024 In-Center Hemodialysis Treatment [id number]:44:15.000Z 7111-97-18G81:48:15.000Z BP Sitting (Pre-Dialysis) 135/63 mmHg BP Sitting (Post-Dialysis) 113/55 mmHg Concurrent Access: falseAV Graft Upper Arm (Left) Arterial BP Standing (Pre-Dialysis) 14/77 mmHg BP Standing (P ost-Dialysis) 107/62 mmHg Sitting Heart Rate Pre-Dialysis 88 BPM Sitting Heart Rate Post-Dialysis 64 BPM Standing Heart Rate Pre-Dialysis 99 BPM Standing Heart Rate Post-Dialysis 74 BPM Temperature Pre-Dialysis 97.8 degF Temperature Post -Dialysis 97.8 degF August 31, 2024 In-Center Hemodialysis Treatment 7156-38-91E97:41:36.000Z 7194-75-48I57:39:37.000Z BP Sitting (Pre-Dialysis) 141/71 mmHg BP Sitting (Post-Dialysis) 106/61 mmHg Concurrent Access: falseAV Graft Upper Arm (Left) Arterial BP Standing (Pre-Dialysis) 157/66 mmHg Sitti ng Heart Rate Post-Dialysis 64 BPM Sitting Heart Rate Pre-Dialysis 82 BPM Temperatu re Post-Dialysis 96.9 degF Standing Heart Rate Pre-Dialysis 88 BPM Temperature Pre-Dialysis 97.8 degF August 29, 2024 In-Center Hemodialysis Treatment 2514-33-58A24:02:15.000Z 7151-00-72O58:05:15.000Z BP Sitting (Pre-Dialysis) 155/78 mmHg BP Sitting (Post-Dialysis) 110/57 mmHg Concurrent Access: falseAV Graft Upper Arm (Left) Arterial BP Standing (Pre-Dialysis) 152/66 mmHg BP Standing (P ost-Dialysis) 113/56 mmHg Sitting Heart Rate Pre-Dialysis 81 BPM Sitting Heart Rate Post-Dialysis 63 BPM Standing Heart Rate Pre-Dialysis 83 BPM Standing Heart Rate Post-Dialysis 64 BPM Temperature Pre-Dialysis 97.8 degF Temperature Post -Dialysis 97.8 degF August 27, 2024 In-Center Hemodialysis Treatment [id number]:36:12.000Z 6052-34-72A87:39:12.000Z BP Sitting (Pre-Dialysis) 163/69 mmHg BP Sitting (Post-Dialysis) 126/54 mmHg Concurrent Access: falseAV Graft Upper Arm (Left) Arterial BP Standing (Pre-Dialysis) 170/75 mmHg Sitti ng Heart Rate Post-Dialysis 60 BPM Sitting Heart Rate Pre-Dialysis 89 BPM Temperatu re Post-Dialysis 97.8 degF Standing Heart Rate Pre-Dialysis 91 BPM Temperature Pre-Dialysis 98 degF August 24, 2024 In-Center Hemodialysis Treatment 6470-84-17H75:28:00.000Z 2213-05-05C18:28:45.000Z BP Sitting (Pre-Dialysis) 125/72 mmHg BP Sitting (Post-Dialysis) 125/62 mmHg Concurrent Access: falseAV Graft Upper Arm (Left) Arterial BP Standing (Pre-Dialysis) 148/71 mmHg Sitti ng Heart Rate Post-Dialysis 67 BPM Sitting Heart Rate Pre-Dialysis 81 BPM Temperatu re Post-Dialysis 97.2 degF Standing Heart Rate Pre-Dialysis 84 BPM Temperature Pre-Dialysis 98 degF August 22, 2024 In-Center Hemodialysis Treatment 3685-72-99I96:33:25.000Z 8990-42-56Y58:32:26.000Z BP Sitting (Pre-Dialysis) 115/63 mmHg BP Sitting (Post-Dialysis) 148/72 mmHg Concurrent Access: falseAV Graft Upper Arm (Left) Arterial BP Standing (Pre-Dialysis) 121/77 mmHg Sitti ng Heart Rate Post-Dialysis 67 BPM Sitting Heart Rate Pre-Dialysis 87 BPM Temperatu re Post-Dialysis 97.6 degF Standing Heart Rate Pre-Dialysis 84 BPM Temperature Pre-Dialysis 97.8 degF August 20, 2024 In-Center Hemodialysis Treatment 8824-78-32Q62:38:45.000Z 4434-17-32S38:40:44.000Z BP Sitting (Pre-Dialysis) 131/77 mmHg BP Sitting (Post-Dialysis) 115/70 mmHg Concurrent Access: falseAV Graft Upper Arm (Left) Arterial BP Standing (Pre-Dialysis) 186/84 mmHg BP Standing (P ost-Dialysis) 123/59 mmHg Sitting Heart Rate Pre-Dialysis 95 BPM Sitting Heart Rate Post-Dialysis 74 BPM Standing Heart Rate Pre-Dialysis 106 BPM Standing Heart Rate Post-Dialysis 67 BPM Temperature Pre-Dialysis 97.5 degF Temperature Post -Dialysis 97.8 degF August 17, 2024 In-Center Hemodialysis Treatment [id number]:40:25.000Z 7683-55-89U37:38:26.000Z BP Sitting (Pre-Dialysis) 129/64 mmHg BP Sitting (Post-Dialysis) 116/68 mmHg Concurrent Access: falseAV Graft Upper Arm (Left) Arterial BP Standing (Pre-Dialysis) 162/72 mmHg Sitti ng Heart Rate Post-Dialysis 75 BPM Sitting Heart Rate Pre-Dialysis 80 BPM Temperatu re Post-Dialysis 97.3 degF Standing Heart Rate Pre-Dialysis 82 BPM Temperature Pre-Dialysis 97.8 degF August 15, 2024 In-Center Hemodialysis Treatment [id number]:54:45.000Z 0617-83-53V11:56:45.000Z BP Sitting (Pre-Dialysis) 111/68 mmHg BP Sitting (Post-Dialysis) 116/60 mmHg Concurrent Access: falseAV Graft Upper Arm (Left) Arterial BP Standing (Pre-Dialysis) 143/73 mmHg Sitti ng Heart Rate Post-Dialysis 69 BPM Sitting Heart Rate Pre-Dialysis 83 BPM Temperatu re Post-Dialysis 97.7 degF Standing Heart Rate Pre-Dialysis 81 BPM Temperature Pre-Dialysis 97.8 degF August 12, 2024 In-Center Hemodialysis Treatment [id number]:26:43.000Z 8502-07-95B13:27:44.000Z BP Sitting (Pre-Dialysis) 138/101 mmHg BP Sitting (Post-Dialysis) 118/57 mmHg Concurrent Access: falseAV Graft Upper Arm (Left) Arterial BP Standing (Pre-Dialysis) 147/96 mmHg Sitti ng Heart Rate Post-Dialysis 73 BPM Sitting Heart Rate Pre-Dialysis 89 BPM Temperatu re Post-Dialysis 98.1 degF Standing Heart Rate Pre-Dialysis 89 BPM Temperature Pre-Dialysis 97.8 degF August 10, 2024 In-Center Hemodialysis Treatment 5592-19-78F53:43:00.000Z 8187-46-05A21:47:33.000Z BP Sitting (Pre-Dialysis) 174/85 mmHg BP Sitting (Post-Dialysis) 125/59 mmHg Concurrent Access: falseAV Graft Upper Arm (Left) Arterial BP Standing (Pre-Dialysis) 152/97 mmHg Sitting Heart Rate Post-Dialysis 63 BPM Sitting Heart Rate Pre-Dialysis 98 BPM Temperatu re Post-Dialysis 98 degF Standing Heart Rate Pre-Dialysis 94 BPM Temperature Pre-Dialysis 98 degF August 08, 2024 In-Center Hemodialysis Treatment [id number]:43:32.000Z 8591-07-65B72:46:33.000Z BP Sitting (Pre-Dialysis) 144/84 mmHg BP Sitting (Post-Dialysis) 124/66 mmHg Concurrent Access: falseAV Graft Upper Arm (Left) Arterial Sitting Heart Rate Pre-Dialysis 96 BPM BP Standing (Post-Dialysis) 106/68 mmHg Temperature Pre-Dialysis 97.8 degF Sitting Heart Ra te Post-Dialysis 66 BPM Standing Heart Rate Post-Renée lysis 76 BPM Temperature Post-Dialysis 97 .8 degF August 05, 2024 In-Center Hemodialysis Treatment [id number]:21:14.000Z 3502-84-65O33:20:15.000Z BP Sitting (Pre-Dialysis) 131/74 mmHg BP Sitting (Post-Dialysis) 100/61 mmHg Concurrent Access: falseAV Graft Upper Arm (Left) Arterial Sitting Heart Rate Pre-Dialysis 85 BPM Sitting H eart Rate Post-Dialysis 74 BPM Temperature Pre-Dialysis 97.5 degF Temperature Post -Dialysis 97.9 degF August 02, 2024 In-Center Hemodialysis Treatment 4425-48-54X43:12:17.000Z 6319-11-39X79:14:17.000Z BP Sitting (Pre-Dialysis) 140/65 mmHg BP Sitting (Post-Dialysis) 133/63 mmHg Concurrent Access: falseAV Graft Upper Arm (Left) Arterial Sitting Heart Rate Pre-Dialysis 87 BPM Sitting H eart Rate Post-Dialysis 69 BPM Temperature Pre-Dialysis 98.2 degF Temperature Post -Dialysis 98.2 degF July 31, 2024 In-Center Hemodialysis Treatment 4527-83-21F84:10:17.000Z 1486-19-61O75:19:17.000Z BP Sitting (Pre-Dialysis) 155/70 mmHg BP Sitting (Post-Dialysis) 97/57 mmHg Concurrent Access: falseAV Graft Upper Arm (Left) Arterial Sitting Heart Rate Pre-Dialysis 101 BPM Sitting H eart Rate Post-Dialysis 68 BPM Temperature Pre-Dialysis 97.5 degF Temperature Post -Dialysis 98 degF July 29, 2024 In-Center Hemodialysis Treatment 3937-11-33O28:52:33.000Z 7826-29-06Q13:51:34.000Z BP Sitting (Pre-Dialysis) 138/56 mmHg BP Sitting (Post-Dialysis) 115/73 mmHg Concurrent Access: falseAV Graft Upper Arm (Left) Arterial BP Standing (Pre-Dialysis) 141/68 mmHg Sitti ng Heart Rate Post-Dialysis 78 BPM Sitting Heart Rate Pre-Dialysis 90 BPM Temperatu re Post-Dialysis 97.4 degF Standing Heart Rate Pre-Dialysis 92 BPM Temperature Pre-Dialysis 98 degF July 27, 2024 In-Center Hemodialysis Treatment 9924-21-12U71:38:11.000Z 8690-89-37P00:41:12.000Z BP Sitting (Pre-Dialysis) 117/77 mmHg BP Sitting (Post-Dialysis) 107/69 mmHg Concurrent Access: falseAV Graft Upper Arm (Left) Arterial Sitting Heart Rate Pre-Dialysis 99 BPM Sitting H eart Rate Post-Dialysis 75 BPM Temperature Pre-Dialysis 97.8 degF Temperature Post -Dialysis 97.5 degF July 25, 2024 In-Center Hemodialysis Treatment 6770-31-23S46:30:11.000Z 0613-73-77D80:35:12.000Z BP Sitting (Pre-Dialysis) 128/75 mmHg BP Sitting (Post-Dialysis) 109/64 mmHg Concurrent Access: falseAV Graft Upper Arm (Left) Arterial BP Standing (Pre-Dialysis) 139/86 mmHg BP Standing (P ost-Dialysis) 102/57 mmHg Sitting Heart Rate Pre-Dialysis 92 BPM Sitting Heart Rate Post-Dialysis 68 BPM Standing Heart Rate Pre-Dialysis 98 BPM Standing Heart Rate Post-Dialysis 76 BPM Temperature Pre-Dialysis 97 degF Temperature Post -Dialysis 97.8 degF July 22, 2024 In-Center Hemodialysis Treatment 4033-08-56J89:41:46.000Z 5489-12-79T41:41:47.000Z BP Sitting (Pre-Dialysis) 122/75 mmHg BP Sitting (Post-Dialysis) 98/69 mmHg Concurrent Access: falseAV Graft Upper Arm (Left) Arterial Sitting Heart Rate Pre-Dialysis 98 BPM Sitting H eart Rate Post-Dialysis 78 BPM Temperature Pre-Dialysis 97.2 degF Temperature Post -Dialysis 98.2 degF July 20, 2024 In-Center Hemodialysis Treatment [id number]:40:11.000Z 9737-42-96L64:43:12.000Z BP Sitting (Pre-Dialysis) 157/78 mmHg BP Sitting (Post-Dialysis) 107/68 mmHg Concurrent Access: falseAV Graft Upper Arm (Left) Arterial Sitting Heart Rate Pre-Dialysis 104 BPM BP Standing (Post-Dialysis) 108/65 mmHg Temperature Pre-Dialysis 97.8 degF Sitting Heart Ra te Post-Dialysis 75 BPM Standing Heart Rate Post-Renée lysis 75 BPM Temperature Post-Dialysis 97 .8 degF July 17, 2024 In-Center Hemodialysis Treatment [id number]:22:53.000Z 4047-01-39T93:24:54.000Z BP Sitting (Pre-Dialysis) 146/80 mmHg BP Sitting (Post-Dialysis) 127/59 mmHg Concurrent Access: falseAV Graft Upper Arm (Left) Arterial Sitting Heart Rate Pre-Dialysis 88 BPM BP Standing (Post-Dialysis) 116/73 mmHg Temperature Pre-Dialysis 97.5 degF Sitting Heart Ra te Post-Dialysis 69 BPM Standing Heart Rate Post-Renée lysis 73 BPM Temperature Post-Dialysis 97 .4 degF July 15, 2024 In-Center Hemodialysis Treatment 5493-79-15H08:54:56.000Z 3516-85-44F68:38:57.000Z BP Sitting (Pre-Dialysis) 167/82 mmHg BP Sitting (Post-Dialysis) 117/61 mmHg Concurrent Access: falseAV Graft Upper Arm (Left) Arterial Sitting Heart Rate Pre-Dialysis 100 BPM Sitting H eart Rate Post-Dialysis 81 BPM Temperature Pre-Dialysis 97.7 degF Temperature Post -Dialysis 97.4 degF July 13, 2024 In-Center Hemodialysis Treatment 0821-61-51D27:03:23.000Z 0157-70-90U14:10:51.000Z BP Sitting (Pre-Dialysis) 133/78 mmHg BP Sitting (Post-Dialysis) 107/63 mmHg Concurrent Access: falseAV Graft Upper Arm (Left) Arterial Sitting Heart Rate Pre-Dialysis 89 BPM BP Standing (Post-Dialysis) 115/66 mmHg Temperature Pre-Dialysis 97.4 degF Sitting Heart Ra te Post-Dialysis 73 BPM Standing Heart Rate Post-Renée lysis 73 BPM Temperature Post-Dialysis 97 .5 degF July 11, 2024 In-Center Hemodialysis Treatment 7632-14-36W95:40:00.000Z 0586-69-45K22:47:23.000Z BP Sitting (Pre-Dialysis) 159/84 mmHg BP Sitting (Post-Dialysis) 125/66 mmHg Concurrent Access: falseAV Graft Upper Arm (Left) Arterial BP Standing (Pre-Dialysis) 169/90 mmHg Sitti ng Heart Rate Post-Dialysis 71 BPM Sitting Heart Rate Pre-Dialysis 103 BPM Temperatu re Post-Dialysis 97.2 degF Standing Heart Rate Pre-Dialysis 104 BPM Temperature Pre-Dialysis 97.3 degF July 08, 2024 In-Center Hemodialysis Treatment 4593-40-32P75:12:10.000Z 6923-52-73F30:16:10.000Z BP Sitting (Pre-Dialysis) 179/81 mmHg BP Sitting (Post-Dialysis) 101/50 mmHg Concurrent Access: falseAV Graft Upper Arm (Left) Arterial Sitting Heart Rate Pre-Dialysis 88 BPM BP Standing (Post-Dialysis) 120/50 mmHg Temperature Pre-Dialysis 97.5 degF Sitting Heart Ra te Post-Dialysis 84 BPM Standing Heart Rate Post-Renée lysis 64 BPM Temperature Post-Dialysis 97 .8 degF July 05, 2024 In-Center Hemodialysis Treatment 2637-66-73F61:14:23.000Z 3885-29-08E74:12:24.000Z BP Sitting (Pre-Dialysis) 138/64 mmHg BP Sitting (Post-Dialysis) 129/47 mmHg Concurrent Access: falseAV Graft Upper Arm (Left) Arterial Sitting Heart Rate Pre-Dialysis 99 BPM Sitting H eart Rate Post-Dialysis 69 BPM Temperature Pre-Dialysis 97.8 degF Temperature Post -Dialysis 97.5 degF July 03, 2024 In-Center Hemodialysis Treatment 2884-96-66T61:58:23.000Z 0894-62-41L36:03:24.000Z BP Sitting (Pre-Dialysis) 125/63 mmHg BP Sitting (Post-Dialysis) 145/41 mmHg Concurrent Access: falseAV Graft Upper Arm (Left) Arterial Sitting Heart Rate Pre-Dialysis 88 BPM BP Standing (Post-Dialysis) 122/55 mmHg Temperature Pre-Dialysis 97.4 degF Sitting Heart Ra te Post-Dialysis 83 BPM Standing Heart Rate Post-Renée lysis 71 BPM Temperature Post-Dialysis 97 .9 degF July 01, 2024 In-Center Hemodialysis Treatment 0955-18-58L93:34:23.000Z 7442-74-30Y62:37:24.000Z BP Sitting (Pre-Dialysis) 153/70 mmHg BP Sitting (Post-Dialysis) 125/67 mmHg Concurrent Access: falseAV Graft Upper Arm (Left) Arterial Sitting Heart Rate Pre-Dialysis 97 BPM Sitting H eart Rate Post-Dialysis 78 BPM Temperature Pre-Dialysis 97.5 degF Temperature Post -Dialysis 97.8 degF June 28, 2024 In-Center Hemodialysis Treatment [id number]:19:20.000Z 4496-35-35Q86:19:20.000Z BP Sitting (Pre-Dialysis) 160/68 mmHg BP Sitting (Post-Dialysis) 137/51 mmHg Concurrent Access: falseAV Graft Upper Arm (Left) Arterial Sitting Heart Rate Pre-Dialysis 84 BPM Sitting H eart Rate Post-Dialysis 72 BPM Temperature Pre-Dialysis 97.8 degF Temperature Post -Dialysis 97.3 degF June 26, 2024 In-Center Hemodialysis Treatment 6123-05-29X54:47:20.000Z 0582-10-25E89:48:20.000Z BP Sitting (Pre-Dialysis) 136/55 mmHg BP Sitting (Post-Dialysis) 99/53 mmHg Concurrent Access: falseAV Graft Upper Arm (Left) Arterial Sitting Heart Rate Pre-Dialysis 92 BPM BP Standing (Post-Dialysis) 106/54 mmHg Temperature Pre-Dialysis 97.9 degF Sitting Heart Ra te Post-Dialysis 68 BPM Standing Heart Rate Post-Renée lysis 67 BPM Temperature Post-Dialysis 97 .8 degF June 24, 2024 In-Center Hemodialysis Treatment 4365-54-73E34:21:00.000Z 5983-19-67G73:22:20.000Z BP Sitting (Pre-Dialysis) 153/64 mmHg BP Sitting (Post-Dialysis) 128/71 mmHg Concurrent Access: falseAV Graft Upper Arm (Left) Arterial BP Standing (Pre-Dialysis) 153/132 mmHg BP Standing (P ost-Dialysis) 137/77 mmHg Sitting Heart Rate Pre-Dialysis 93 BPM Sitting Heart Rate Post-Dialysis 66 BPM Standing Heart Rate Pre-Dialysis 81 BPM Standing Heart Rate Post-Dialysis 61 BPM Temperature Pre-Dialysis 98 degF Temperature Post -Dialysis 97.3 degF June 21, 2024 In-Center Hemodialysis Treatment 5967-48-90C43:25:30.000Z 6654-50-27H97:26:31.000Z BP Sitting (Pre-Dialysis) 139/67 mmHg BP Sitting (Post-Dialysis) 127/74 mmHg Concurrent Access: falseAV Graft Upper Arm (Left) Arterial Sitting Heart Rate Pre-Dialysis 94 BPM BP Standing (Post-Dialysis) 130/57 mmHg Temperature Pre-Dialysis 97.6 degF Sitting Heart Ra te Post-Dialysis 74 BPM Standing Heart Rate Post-Renée lysis 76 BPM Temperature Post-Dialysis 97 .5 degF June 19, 2024 In-Center Hemodialysis Treatment 3764-48-56W21:57:30.000Z 2726-34-03V31:01:31.000Z BP Sitting (Pre-Dialysis) 139/103 mmHg BP Sitting (Post-Dialysis) 136/71 mmHg Concurrent Access: falseAV Graft Upper Arm (Left) Arterial BP Standing (Pre-Dialysis) 141/72 mmHg Sitti ng Heart Rate Post-Dialysis 70 BPM Sitting Heart Rate Pre-Dialysis 73 BPM Temperatu re Post-Dialysis 97.6 degF Standing Heart Rate Pre-Dialysis 100 BPM Temperature Pre-Dialysis 97.9 degF June 17, 2024 In-Center Hemodialysis Treatment 7691-87-76X92:21:31.000Z 7788-63-68Y51:08:31.000Z BP Sitting (Pre-Dialysis) 169/74 mmHg BP Sitting (Post-Dialysis) 124/64 mmHg Concurrent Access: falseAV Graft Upper Arm (Left) Arterial BP Standing (Pre-Dialysis) 163/76 mmHg BP Standing (P ost-Dialysis) 108/67 mmHg Sitting Heart Rate Pre-Dialysis 88 BPM Sitting Heart Rate Post-Dialysis 67 BPM Standing Heart Rate Pre-Dialysis 95 BPM Standing Heart Rate Post-Dialysis 73 BPM Temperature Pre-Dialysis 97.9 degF Temperature Post -Dialysis 97.9 degF June 14, 2024 In-Center Hemodialysis Treatment 4218-86-64F73:24:00.000Z 6295-87-84I58:15:13.000Z BP Sitting (Pre-Dialysis) 139/75 mmHg BP Sitting (Post-Dialysis) 116/67 mmHg Concurrent Access: falseAV Graft Upper Arm (Left) Arterial Sitting Heart Rate Pre-Dialysis 88 BPM BP Standing (Post-Dialysis) 125/65 mmHg Temperature Pre-Dialysis 97.7 degF Sitting Heart Ra te Post-Dialysis 74 BPM Standing Heart Rate Post-Renée lysis 71 BPM Temperature Post-Dialysis 97 .8 degF June 12, 2024 In-Center Hemodialysis Treatment 7805-58-11X10:26:12.000Z 9892-44-15I38:27:13.000Z BP Sitting (Pre-Dialysis) 136/69 mmHg BP Sitting (Post-Dialysis) 110/61 mmHg Concurrent Access: falseAV Graft Upper Arm (Left) Arterial Sitting Heart Rate Pre-Dialysis 92 BPM Sitting H eart Rate Post-Dialysis 65 BPM Temperature Pre-Dialysis 97.9 degF Temperature Post -Dialysis 97.2 degF June 10, 2024 In-Center Hemodialysis Treatment 6111-98-96F00:22:47.000Z 3588-51-82N27:23:48.000Z BP Sitting (Pre-Dialysis) 141/61 mmHg BP Sitting (Post-Dialysis) 105/60 mmHg Concurrent Access: falseAV Graft Upper Arm (Left) Arterial Sitting Heart Rate Pre-Dialysis 88 BPM BP Standing (Post-Dialysis) 115/55 mmHg Temperature Pre-Dialysis 97.8 degF Sitting Heart Ra te Post-Dialysis 52 BPM Standing Heart Rate Post-Renée lysis 64 BPM Temperature Post-Dialysis 98 .2 degF June 07, 2024 In-Center Hemodialysis Treatment 9914-09-35I76:56:20.000Z 3103-87-75C97:59:20.000Z BP Sitting (Pre-Dialysis) 136/66 mmHg BP Sitting (Post-Dialysis) 140/69 mmHg Concurrent Access: falseAV Graft Upper Arm (Left) Arterial Sitting Heart Rate Pre-Dialysis 76 BPM Sitting H eart Rate Post-Dialysis 72 BPM Temperature Pre-Dialysis 98.2 degF Temperature Post -Dialysis 97.8 degF June 05, 2024 In-Center Hemodialysis Treatment [id number]:16:00.000Z 1256-40-10H45:20:27.000Z BP Sitting (Pre-Dialysis) 157/74 mmHg BP Sitting (Post-Dialysis) 117/59 mmHg Concurrent Access: falseAV Graft Upper Arm (Left) Arterial BP Standing (Pre-Dialysis) 161/66 mmHg Sitti ng Heart Rate Post-Dialysis 75 BPM Sitting Heart Rate Pre-Dialysis 93 BPM Temperatu re Post-Dialysis 98.2 degF Standing Heart Rate Pre-Dialysis 95 BPM Temperature Pre-Dialysis 98.1 degF June 03, 2024 In-Center Hemodialysis Treatment 8853-61-05L66:33:26.000Z 9529-53-48N17:37:27.000Z BP Sitting (Pre-Dialysis) 120/57 mmHg BP Sitting (Post-Dialysis) 111/46 mmHg Concurrent Access: falseAV Graft Upper Arm (Left) Arterial Sitting Heart Rate Pre-Dialysis 96 BPM Sitting H eart Rate Post-Dialysis 72 BPM Temperature Pre-Dialysis 97.9 degF Temperature Post -Dialysis 97.6 degF June 01, 2024 In-Center Hemodialysis Treatment 8716-27-52X40:11:15.000Z 2092-30-08E46:28:03.000Z BP Sitting (Pre-Dialysis) 135/71 mmHg BP Sitting (Post-Dialysis) 125/58 mmHg Concurrent Access: falseAV Graft Upper Arm (Left) Arterial BP Standing (Pre-Dialysis) 104/53 mmHg BP Standing (P ost-Dialysis) 113/61 mmHg Sitting Heart Rate Pre-Dialysis 79 BPM Sitting Heart Rate Post-Dialysis 70 BPM Standing Heart Rate Pre-Dialysis 82 BPM Standing Heart Rate Post-Dialysis 76 BPM Temperature Pre-Dialysis 97.9 degF Temperature Post -Dialysis 97.7 degF May 31, 2024 In-Center Hemodialysis Treatment 2610-34-88L49:24:00.000Z 9179-26-58J64:27:02.000Z BP Sitting (Pre-Dialysis) 138/103 mmHg BP Sitting (Post-Dialysis) 115/64 mmHg Concurrent Access: falseAV Graft Upper Arm (Left) Arterial BP Standing (Pre-Dialysis) 117/70 mmHg BP Standing (P ost-Dialysis) 119/58 mmHg Sitting Heart Rate Pre-Dialysis 99 BPM Sitting Heart Rate Post-Dialysis 65 BPM Standing Heart Rate Pre-Dialysis 80 BPM Standing Heart Rate Post-Dialysis 65 BPM Temperature Pre-Dialysis 97 degF Temperature Post -Dialysis 97.8 degF May 27, 2024 In-Center Hemodialysis Treatment 8379-62-04O81:00:35.000Z 8118-49-13K32:03:35.000Z BP Sitting (Pre-Dialysis) 119/65 mmHg BP Sitting (Post-Dialysis) 110/62 mmHg Concurrent Access: falseAV Graft Upper Arm (Left) Arterial BP Standing (Pre-Dialysis) 113/66 mmHg BP Standing (P ost-Dialysis) 108/71 mmHg Sitting Heart Rate Pre-Dialysis 91 BPM Sitting Heart Rate Post-Dialysis 77 BPM Standing Heart Rate Pre-Dialysis 93 BPM Standing Heart Rate Post-Dialysis 69 BPM Temperature Pre-Dialysis 97.4 degF Temperature Post -Dialysis 97.8 degF May 24, 2024 In-Center Hemodialysis Treatment [id number]:38:31.000Z 6358-26-23S32:35:31.000Z BP Sitting (Pre-Dialysis) 181/66 mmHg BP Sitting (Post-Dialysis) 104/85 mmHg Concurrent Access: falseAV Graft Upper Arm (Left) Arterial Sitting Heart Rate Pre-Dialysis 88 BPM Sitting H eart Rate Post-Dialysis 76 BPM Temperature Pre-Dialysis 97.9 degF Temperature Post -Dialysis 97.9 degF May 22, 2024 In-Center Hemodialysis Treatment 2351-13-07S18:08:00.000Z 2713-65-29O16:13:31.000Z BP Sitting (Pre-Dialysis) 106/55 mmHg BP Sitting (Post-Dialysis) 112/65 mmHg Concurrent Access: falseAV Graft Upper Arm (Left) Arterial BP Standing (Pre-Dialysis) 133/73 mmHg Sitti ng Heart Rate Post-Dialysis 75 BPM Sitting Heart Rate Pre-Dialysis 93 BPM Temperatu re Post-Dialysis 97.5 degF Standing Heart Rate Pre-Dialysis 70 BPM Temperature Pre-Dialysis 97.6 degF May 20, 2024 In-Center Hemodialysis Treatment 6922-20-91X36:19:00.000Z 4501-32-88M83:16:07.000Z BP Sitting (Pre-Dialysis) 114/58 mmHg BP Sitting (Post-Dialysis) 106/61 mmHg Concurrent Access: falseAV Graft Upper Arm (Left) Arterial BP Standing (Pre-Dialysis) 126/62 mmHg Sitti ng Heart Rate Post-Dialysis 67 BPM Sitting Heart Rate Pre-Dialysis 73 BPM Temperatu re Post-Dialysis 97.8 degF Standing Heart Rate Pre-Dialysis 86 BPM Temperature Pre-Dialysis 97.8 degF May 17, 2024 In-Center Hemodialysis Treatment 0106-54-97Y35:47:55.000Z 3097-15-57S70:31:55.000Z BP Sitting (Pre-Dialysis) 121/66 mmHg BP Sitting (Post-Dialysis) 112/67 mmHg Concurrent Access: falseAV Graft Upper Arm (Left) Arterial Sitting Heart Rate Pre-Dialysis 109 BPM BP Standing (Post-Dialysis) 122/83 mmHg Temperature Pre-Dialysis 97.6 degF Sitting Heart Ra te Post-Dialysis 82 BPM Standing Heart Rate Post-Renée lysis 84 BPM Temperature Post-Dialysis 97 .1 degF May 15, 2024 In-Center Hemodialysis Treatment 5940-16-95K63:28:55.000Z 1268-20-74T53:31:55.000Z BP Sitting (Pre-Dialysis) 159/53 mmHg BP Sitting (Post-Dialysis) 103/54 mmHg Concurrent Access: falseAV Graft Upper Arm (Left) Arterial Sitting Heart Rate Pre-Dialysis 85 BPM Sitting H eart Rate Post-Dialysis 62 BPM Temperature Pre-Dialysis 97.8 degF Temperature Post -Dialysis 97.5 degF May 13, 2024 In-Center Hemodialysis Treatment 2779-79-44D19:40:55.000Z 5644-61-31D22:34:55.000Z BP Sitting (Pre-Dialysis) 156/72 mmHg BP Sitting (Post-Dialysis) 111/56 mmHg Concurrent Access: falseAV Graft Upper Arm (Left) Arterial BP Standing (Pre-Dialysis) 148/95 mmHg BP Standing (P ost-Dialysis) 114/54 mmHg Sitting Heart Rate Pre-Dialysis 97 BPM Sitting Heart Rate Post-Dialysis 69 BPM Standing Heart Rate Pre-Dialysis 104 BPM Standing Heart Rate Post-Dialysis 74 BPM Temperature Pre-Dialysis 97.8 degF Temperature Post -Dialysis 97.8 degF May 10, 2024 In-Center Hemodialysis Treatment 0823-24-93K12:22:40.000Z 2850-58-52M26:01:40.000Z BP Sitting (Pre-Dialysis) 136/68 mmHg BP Sitting (Post-Dialysis) 124/56 mmHg Concurrent Access: falseAV Graft Upper Arm (Left) Arterial BP Standing (Pre-Dialysis) 140/70 mmHg BP Standing (P ost-Dialysis) 128/57 mmHg Sitting Heart Rate Pre-Dialysis 90 BPM Sitting Heart Rate Post-Dialysis 70 BPM Standing Heart Rate Pre-Dialysis 91 BPM Standing Heart Rate Post-Dialysis 68 BPM Temperature Pre-Dialysis 97.4 degF Temperature Post -Dialysis 97.2 degF May 08, 2024 In-Center Hemodialysis Treatment 0070-16-11N65:14:00.000Z 4811-10-86F63:13:39.000Z BP Sitting (Pre-Dialysis) 137/63 mmHg BP Sitting (Post-Dialysis) 135/79 mmHg Concurrent Access: falseAV Graft Upper Arm (Left) Arterial BP Standing (Pre-Dialysis) 128/57 mmHg Sitting Heart Rate Post-Dialysis 79 BPM Sitting Heart Rate Pre-Dialysis 96 BPM Temperatu re Post-Dialysis 98 degF Standing Heart Rate Pre-Dialysis 92 BPM Temperature Pre-Dialysis 97.3 degF May 06, 2024 In-Center Hemodialysis Treatment 8626-13-68K53:11:06.000Z 1617-02-31W57:13:06.000Z BP Sitting (Pre-Dialysis) 159/59 mmHg BP Sitting (Post-Dialysis) 102/61 mmHg Concurrent Access: falseAV Graft Upper Arm (Left) Arterial BP Standing (Pre-Dialysis) 133/58 mmHg BP Standing (P ost-Dialysis) 104/56 mmHg Sitting Heart Rate Pre-Dialysis 97 BPM Sitting Heart Rate Post-Dialysis 80 BPM Standing Heart Rate Pre-Dialysis 100 BPM Standing Heart Rate Post-Dialysis 89 BPM Temperature Pre-Dialysis 97.8 degF Temperature Post -Dialysis 98 degF May 03, 2024 In-Center Hemodialysis Treatment 0190-27-51D85:31:00.000Z 6193-30-32U82:31:28.000Z BP Sitting (Pre-Dialysis) 102/51 mmHg BP Sitting (Post-Dialysis) 113/49 mmHg Concurrent Access: falseAV Graft Upper Arm (Left) Arterial BP Standing (Pre-Dialysis) 110/57 mmHg BP Standing (P ost-Dialysis) 118/54 mmHg Sitting Heart Rate Pre-Dialysis 87 BPM Sitting Heart Rate Post-Dialysis 77 BPM Standing Heart Rate Pre-Dialysis 87 BPM Standing Heart Rate Post-Dialysis 79 BPM Temperature Pre-Dialysis 97.6 degF Temperature Post -Dialysis 97.9 degF May 01, 2024 In-Center Hemodialysis Treatment 6774-12-44D00:29:29.000Z 7623-43-13D75:32:30.000Z BP Sitting (Pre-Dialysis) 133/66 mmHg BP Sitting (Post-Dialysis) 116/63 mmHg Concurrent Access: falseAV Graft Upper Arm (Left) Arterial BP Standing (Pre-Dialysis) 152/68 mmHg Sitti ng Heart Rate Post-Dialysis 75 BPM Sitting Heart Rate Pre-Dialysis 82 BPM Temperatu re Post-Dialysis 97.5 degF Standing Heart Rate Pre-Dialysis 82 BPM Temperature Pre-Dialysis 97.3 degF April 29, 2024 In-Center Hemodialysis Treatment 6408-94-23G78:27:00.000Z 5980-18-28B19:30:28.000Z BP Sitting (Pre-Dialysis) 142/83 mmHg BP Sitting (Post-Dialysis) 122/62 mmHg Concurrent Access: falseAV Graft Upper Arm (Left) Arterial BP Standing (Pre-Dialysis) 152/68 mmHg BP Standing (P ost-Dialysis) 141/53 mmHg Sitting Heart Rate Pre-Dialysis 94 BPM Sitting Heart Rate Post-Dialysis 78 BPM Standing Heart Rate Pre-Dialysis 85 BPM Standing Heart Rate Post-Dialysis 76 BPM Temperature Pre-Dialysis 97.8 degF Temperature Post -Dialysis 97.9 degF April 26, 2024 In-Center Hemodialysis Treatment 6612-53-10A16:15:26.000Z 0710-11-39L74:19:26.000Z BP Sitting (Pre-Dialysis) 133/61 mmHg BP Sitting (Post-Dialysis) 113/54 mmHg Concurrent Access: falseAV Graft Upper Arm (Left) Arterial BP Standing (Pre-Dialysis) 153/62 mmHg BP Standing (P ost-Dialysis) 114/56 mmHg Sitting Heart Rate Pre-Dialysis 88 BPM Sitting Heart Rate Post-Dialysis 77 BPM Standing Heart Rate Pre-Dialysis 90 BPM Standing Heart Rate Post-Dialysis 75 BPM Temperature Pre-Dialysis 97.8 degF Temperature Post -Dialysis 97.2 degF April 24, 2024 In-Center Hemodialysis Treatment 7339-46-19D10:22:00.000Z 5067-05-78B41:22:56.000Z BP Sitting (Pre-Dialysis) 144/71 mmHg BP Sitting (Post-Dialysis) 128/66 mmHg Concurrent Access: falseAV Graft Upper Arm (Left) Arterial BP Standing (Pre-Dialysis) 162/75 mmHg BP Standing (P ost-Dialysis) 132/69 mmHg Sitting Heart Rate Pre-Dialysis 85 BPM Sitting Heart Rate Post-Dialysis 74 BPM Standing Heart Rate Pre-Dialysis 84 BPM Standing Heart Rate Post-Dialysis 84 BPM Temperature Pre-Dialysis 97.8 degF Temperature Post -Dialysis 97.6 degF April 23, 2024 In-Center Hemodialysis Treatment 9959-79-41B02:20:32.000Z 7598-52-12O79:27:32.000Z BP Sitting (Pre-Dialysis) 177/91 mmHg BP Sitting (Post-Dialysis) 124/60 mmHg Concurrent Access: falseAV Graft Upper Arm (Left) Arterial Sitting Heart Rate Pre-Dialysis 104 BPM BP Standing (Post-Dialysis) 123/65 mmHg Temperature Pre-Dialysis 97.8 degF Sitting Heart Ra te Post-Dialysis 72 BPM Standing Heart Rate Post-Renée lysis 470 BPM Temperature Post-Dialysis 97 .9 degF April 19, 2024 In-Center Hemodialysis Treatment 5812-63-59X43:29:43.000Z 2191-21-75W16:30:43.000Z BP Sitting (Pre-Dialysis) 130/60 mmHg BP Sitting (Post-Dialysis) 130/63 mmHg Concurrent Access: falseAV Graft Upper Arm (Left) Arterial BP Standing (Pre-Dialysis) 137/111 mmHg Sitti ng Heart Rate Post-Dialysis 74 BPM Sitting Heart Rate Pre-Dialysis 86 BPM Temperatu re Post-Dialysis 97.8 degF Standing Heart Rate Pre-Dialysis 75 BPM Temperature Pre-Dialysis 97.4 degF April 17, 2024 In-Center Hemodialysis Treatment 8252-46-62J85:18:43.000Z 9106-79-57Q02:17:44.000Z BP Sitting (Pre-Dialysis) 154/72 mmHg BP Sitting (Post-Dialysis) 124/60 mmHg Concurrent Access: falseAV Graft Upper Arm (Left) Arterial BP Standing (Pre-Dialysis) 168/77 mmHg BP Standing (P ost-Dialysis) 116/77 mmHg Sitting Heart Rate Pre-Dialysis 88 BPM Sitting Heart Rate Post-Dialysis 64 BPM Standing Heart Rate Pre-Dialysis 92 BPM Standing Heart Rate Post-Dialysis 69 BPM Temperature Pre-Dialysis 97.9 degF Temperature Post -Dialysis 97.8 degF April 15, 2024 In-Center Hemodialysis Treatment 0154-16-45Z58:27:00.000Z 4250-96-32R22:28:44.000Z BP Sitting (Pre-Dialysis) 170/113 mmHg BP Sitting (Post-Dialysis) 133/54 mmHg Concurrent Access: falseAV Graft Upper Arm (Left) Arterial Sitting Heart Rate Pre-Dialysis 94 BPM BP Standing (Post-Dialysis) 107/90 mmHg Temperature Pre-Dialysis 97.6 degF Sitting Heart Ra te Post-Dialysis 99 BPM Standing Heart Rate Post-Renée lysis 85 BPM Temperature Post-Dialysis 97 .6 degF April 12, 2024 In-Center Hemodialysis Treatment [id number]:20:00.000Z 7700-30-79G67:24:15.000Z BP Sitting (Pre-Dialysis) 156/65 mmHg BP Sitting (Post-Dialysis) 134/69 mmHg Concurrent Access: falseAV Graft Upper Arm (Left) Arterial BP Standing (Pre-Dialysis) 147/60 mmHg BP Standing (P ost-Dialysis) 125/59 mmHg Sitting Heart Rate Pre-Dialysis 89 BPM Sitting Heart Rate Post-Dialysis 76 BPM Standing Heart Rate Pre-Dialysis 96 BPM Standing Heart Rate Post-Dialysis 72 BPM Temperature Pre-Dialysis 97.3 degF Temperature Post -Dialysis 97.4 degF April 10, 2024 In-Center Hemodialysis Treatment [id number]:30:14.000Z [id number]:30:14.000Z BP Sitting (Pre-Dialysis) 152/99 mmHg BP Sitting (Post-Dialysis) 138/107 mmHg Concurrent Access: falseAV Graft Upper Arm (Left) Arterial BP Standing (Pre-Dialysis) 139/67 mmHg BP Standing (P ost-Dialysis) 103/59 mmHg Sitting Heart Rate Pre-Dialysis 92 BPM Sitting Heart Rate Post-Dialysis 68 BPM Standing Heart Rate Pre-Dialysis 94 BPM Standing Heart Rate Post-Dialysis 80 BPM Temperature Pre-Dialysis 97.6 degF Temperature Post -Dialysis 97.5 degF April 08, 2024 In-Center Hemodialysis Treatment 1308-25-44G94:15:00.000Z 8312-81-75H63:18:15.000Z BP Sitting (Pre-Dialysis) 131/81 mmHg BP Sitting (Post-Dialysis) 108/60 mmHg Concurrent Access: falseAV Graft Upper Arm (Left) Arterial BP Standing (Pre-Dialysis) 150/93 mmHg BP Standing (P ost-Dialysis) 106/54 mmHg Sitting Heart Rate Pre-Dialysis 92 BPM Sitting Heart Rate Post-Dialysis 71 BPM Standing Heart Rate Pre-Dialysis 97 BPM Standing Heart Rate Post-Dialysis 74 BPM Temperature Pre-Dialysis 97.6 degF Temperature Post -Dialysis 97.6 degF April 05, 2024 In-Center Hemodialysis Treatment [id number]:13:00.000Z 0848-36-20D90:16:22.000Z BP Sitting (Pre-Dialysis) 130/65 mmHg BP Sitting (Post-Dialysis) 127/69 mmHg Concurrent Access: falseAV Graft Upper Arm (Left) Arterial BP Standing (Pre-Dialysis) 142/64 mmHg BP Standing (P ost-Dialysis) 128/60 mmHg Sitting Heart Rate Pre-Dialysis 95 BPM Sitting Heart Rate Post-Dialysis 70 BPM Standing Heart Rate Pre-Dialysis 99 BPM Standing Heart Rate Post-Dialysis 78 BPM Temperature Pre-Dialysis 97.2 degF Temperature Post -Dialysis 97.8 degF April 03, 2024 In-Center Hemodialysis Treatment [id number]:24:00.000Z [id number]:25:25.000Z BP Sitting (Pre-Dialysis) 119/58 mmHg BP Sitting (Post-Dialysis) 108/57 mmHg Concurrent Access: falseAV Graft Upper Arm (Left) Arterial Sitting Heart Rate Pre-Dialysis 94 BPM BP Standing (Post-Dialysis) 107/61 mmHg Temperature Pre-Dialysis 97.9 degF Sitting Heart Ra te Post-Dialysis 69 BPM Standing Heart Rate Post-Renée lysis 76 BPM Temperature Post-Dialysis 97 .9 degF April 01, 2024 In-Center Hemodialysis Treatment 0880-15-68U15:12:24.000Z 8455-76-31U94:17:25.000Z BP Sitting (Pre-Dialysis) 144/66 mmHg BP Sitting (Post-Dialysis) 115/70 mmHg Concurrent Access: falseAV Graft Upper Arm (Left) Arterial BP Standing (Pre-Dialysis) 136/69 mmHg BP Standing (P ost-Dialysis) 120/60 mmHg Sitting Heart Rate Pre-Dialysis 91 BPM Sitting Heart Rate Post-Dialysis 70 BPM Standing Heart Rate Pre-Dialysis 96 BPM Standing Heart Rate Post-Dialysis 75 BPM Temperature Pre-Dialysis 97.8 degF Temperature Post -Dialysis 97.6 degF March 29, 2024 In-Center Hemodialysis Treatment 6426-97-51K36:14:00.000Z 6684-96-18Q56:17:42.000Z BP Sitting (Pre-Dialysis) 156/70 mmHg BP Sitting (Post-Dialysis) 124/61 mmHg Concurrent Access: falseAV Graft Upper Arm (Left) Arterial BP Standing (Pre-Dialysis) 147/70 mmHg BP Standing (P ost-Dialysis) 122/65 mmHg Sitting Heart Rate Pre-Dialysis 84 BPM Sitting Heart Rate Post-Dialysis 72 BPM Standing Heart Rate Pre-Dialysis 91 BPM Standing Heart Rate Post-Dialysis 70 BPM Temperature Pre-Dialysis 97.8 degF Temperature Post -Dialysis 97.6 degF March 27, 2024 In-Center Hemodialysis Treatment [id number]:22:00.000Z 5312-10-15Y09:29:42.000Z BP Sitting (Pre-Dialysis) 148/71 mmHg BP Sitting (Post-Dialysis) 111/67 mmHg Concurrent Access: falseAV Graft Upper Arm (Left) Arterial BP Standing (Pre-Dialysis) 135/94 mmHg Sitti ng Heart Rate Post-Dialysis 74 BPM Sitting Heart Rate Pre-Dialysis 79 BPM Temperatu re Post-Dialysis 97.6 degF Standing Heart Rate Pre-Dialysis 79 BPM Temperature Pre-Dialysis 97.6 degF March 25, 2024 In-Center Hemodialysis Treatment 3261-04-97P90:23:42.000Z 7757-57-48I24:25:43.000Z BP Sitting (Pre-Dialysis) 156/87 mmHg BP Sitting (Post-Dialysis) 122/61 mmHg Concurrent Access: falseAV Graft Upper Arm (Left) Arterial BP Standing (Pre-Dialysis) 163/87 mmHg BP Standing (P ost-Dialysis) 134/66 mmHg Sitting Heart Rate Pre-Dialysis 88 BPM Sitting Heart Rate Post-Dialysis 67 BPM Standing Heart Rate Pre-Dialysis 89 BPM Standing Heart Rate Post-Dialysis 73 BPM Temperature Pre-Dialysis 97.8 degF Temperature Post -Dialysis 97.8 degF March 22, 2024 In-Center Hemodialysis Treatment [id number]:23:00.000Z 3661-94-13C64:25:56.000Z BP Sitting (Pre-Dialysis) 138/67 mmHg BP Sitting (Post-Dialysis) 115/68 mmHg Concurrent Access: falseAV Graft Upper Arm (Left) Arterial BP Standing (Pre-Dialysis) 147/66 mmHg Sitti ng Heart Rate Post-Dialysis 78 BPM Sitting Heart Rate Pre-Dialysis 80 BPM Temperatu re Post-Dialysis 97.9 degF Standing Heart Rate Pre-Dialysis 89 BPM Temperature Pre-Dialysis 97.9 degF March 21, 2024 Additional Day Of Dialysis Treatment [id number]:35:45.000Z 1688-28-84B59:39:46.000Z BP Sitting (Pre-Dialysis) 152/67 mmHg BP Sitting (Post-Dialysis) 119/63 mmHg Concurrent Access: falseAV Graft Upper Arm (Left) Arterial BP Standing (Pre-Dialysis) 160/74 mmHg Sitti ng Heart Rate Post-Dialysis 69 BPM Sitting Heart Rate Pre-Dialysis 88 BPM Temperatu re Post-Dialysis 97.6 degF Standing Heart Rate Pre-Dialysis 89 BPM Temperature Pre-Dialysis 97.6 degF March 20, 2024 In-Center Hemodialysis Treatment 7761-43-11Z07:18:00.000Z 5900-20-48P44:23:56.000Z BP Sitting (Pre-Dialysis) 142/71 mmHg BP Sitting (Post-Dialysis) 108/85 mmHg Concurrent Access: falseAV Graft Upper Arm (Left) Arterial BP Standing (Pre-Dialysis) 151/64 mmHg Sitting Heart Rate Post-Dialysis 68 BPM Sitting Heart Rate Pre-Dialysis 79 BPM Standing Heart Rate Pre-Dialysis 82 BPM Temperature Pre-Dialysis 97.3 degF March 18, 2024 In-Center Hemodialysis Treatment [id number]:20:58.000Z 6375-89-15X08:21:58.000Z BP Sitting (Pre-Dialysis) 166/72 mmHg BP Sitting (Post-Dialysis) 126/75 mmHg Concurrent Access: falseAV Graft Upper Arm (Left) Arterial Sitting Heart Rate Pre-Dialysis 99 BPM Sitting H eart Rate Post-Dialysis 70 BPM Temperature Pre-Dialysis 97.9 degF Temperature Post -Dialysis 97.2 degF March 15, 2024 In-Center Hemodialysis Treatment 7615-17-76P12:46:59.000Z 0464-94-83J44:48:59.000Z BP Sitting (Pre-Dialysis) 132/79 mmHg BP Sitting (Post-Dialysis) 120/84 mmHg Concurrent Access: falseAV Graft Upper Arm (Left) Arterial BP Standing (Pre-Dialysis) 103/89 mmHg BP Standing (P ost-Dialysis) 132/69 mmHg Sitting Heart Rate Pre-Dialysis 106 BPM Sitting Heart Rate Post-Dialysis 82 BPM Standing Heart Rate Pre-Dialysis 100 BPM Standing Heart Rate Post-Dialysis 73 BPM Temperature Pre-Dialysis 97.2 degF Temperature Post -Dialysis 97.8 degF March 13, 2024 In-Center Hemodialysis Treatment 9979-34-71H32:19:00.000Z 9726-15-78H24:20:59.000Z BP Sitting (Pre-Dialysis) 151/74 mmHg BP Sitting (Post-Dialysis) 124/61 mmHg Concurrent Access: falseAV Graft Upper Arm (Left) Arterial BP Standing (Pre-Dialysis) 167/67 mmHg BP Standing (P ost-Dialysis) 119/71 mmHg Sitting Heart Rate Pre-Dialysis 89 BPM Sitting Heart Rate Post-Dialysis 64 BPM Standing Heart Rate Pre-Dialysis 91 BPM Standing Heart Rate Post-Dialysis 71 BPM Temperature Pre-Dialysis 97.5 degF Temperature Post -Dialysis 97.8 degF March 11, 2024 In-Center Hemodialysis Treatment 6831-23-01C92:16:59.000Z 4540-40-43V58:19:59.000Z BP Sitting (Pre-Dialysis) 155/74 mmHg BP Sitting (Post-Dialysis) 124/63 mmHg Concurrent Access: falseAV Graft Upper Arm (Left) Arterial BP Standing (Pre-Dialysis) 140/68 mmHg BP Standing (P ost-Dialysis) 139/65 mmHg Sitting Heart Rate Pre-Dialysis 95 BPM Sitting Heart Rate Post-Dialysis 74 BPM Standing Heart Rate Pre-Dialysis 95 BPM Standing Heart Rate Post-Dialysis 78 BPM Temperature Pre-Dialysis 97.3 degF Temperature Post -Dialysis 97.5 degF March 08, 2024 In-Center Hemodialysis Treatment 4563-60-50T79:19:00.000Z 5208-24-39E18:22:46.000Z BP Sitting (Pre-Dialysis) 153/79 mmHg BP Sitting (Post-Dialysis) 138/70 mmHg Concurrent Access: falseAV Graft Upper Arm (Left) Arterial Sitting Heart Rate Pre-Dialysis 98 BPM Sitting H eart Rate Post-Dialysis 73 BPM Temperature Pre-Dialysis 97.7 degF Temperature Post -Dialysis 97.9 degF March 06, 2024 In-Center Hemodialysis Treatment [id number]:12:11.000Z 7326-48-16U69:16:11.000Z BP Sitting (Pre-Dialysis) 146/72 mmHg BP Sitting (Post-Dialysis) 139/66 mmHg Concurrent Access: falseAV Graft Upper Arm (Left) Arterial Sitting Heart Rate Pre-Dialysis 71 BPM Sitting H eart Rate Post-Dialysis 74 BPM Temperature Pre-Dialysis 97.3 degF Temperature Post -Dialysis 97.6 degF March 04, 2024 In-Center Hemodialysis Treatment 8858-82-25Z58:24:32.000Z 6921-39-30J66:25:32.000Z BP Sitting (Pre-Dialysis) 156/77 mmHg BP Sitting (Post-Dialysis) 123/58 mmHg Concurrent Access: falseAV Graft Upper Arm (Left) Arterial Sitting Heart Rate Pre-Dialysis 84 BPM BP Standing (Post-Dialysis) 115/59 mmHg Temperature Pre-Dialysis 97.9 degF Sitting Heart Ra te Post-Dialysis 64 BPM Standing Heart Rate Post-Renée lysis 66 BPM Temperature Post-Dialysis 97 .6 degF March 01, 2024 In-Center Hemodialysis Treatment [id number]:14:06.000Z 3119-62-34B87:12:06.000Z BP Sitting (Pre-Dialysis) 161/73 mmHg BP Sitting (Post-Dialysis) 107/55 mmHg Concurrent Access: falseAV Graft Upper Arm (Left) Arterial BP Standing (Pre-Dialysis) 164/71 mmHg Sitti ng Heart Rate Post-Dialysis 71 BPM Sitting Heart Rate Pre-Dialysis 88 BPM Temperatu re Post-Dialysis 97.9 degF Standing Heart Rate Pre-Dialysis 87 BPM Temperature Pre-Dialysis 97.3 degF February 28, 2024 In-Center Hemodialysis Treatment 1731-02-70R26:38:00.000Z 6670-50-67Y90:42:17.000Z BP Sitting (Pre-Dialysis) 168/70 mmHg BP Sitting (Post-Dialysis) 134/67 mmHg Concurrent Access: falseAV Graft Upper Arm (Left) Arterial BP Standing (Pre-Dialysis) 164/82 mmHg Sitting Heart Rate Post-Dialysis 74 BPM Sitting Heart Rate Pre-Dialysis 94 BPM Standing Heart Rate Pre-Dialysis 98 BPM Temperature Pre-Dialysis 97.4 degF February 26, 2024 In-Center Hemodialysis Treatment 1566-51-93R15:25:06.000Z 1120-15-15Y85:32:07.000Z BP Sitting (Pre-Dialysis) 150/71 mmHg BP Sitting (Post-Dialysis) 131/69 mmHg Concurrent Access: falseAV Graft Upper Arm (Left) Arterial BP Standing (Pre-Dialysis) 157/72 mmHg BP Standing (P ost-Dialysis) 123/79 mmHg Sitting Heart Rate Pre-Dialysis 88 BPM Sitting Heart Rate Post-Dialysis 61 BPM Standing Heart Rate Pre-Dialysis 92 BPM Standing Heart Rate Post-Dialysis 75 BPM Temperature Pre-Dialysis 97.5 degF Temperature Post -Dialysis 97.5 degF February 23, 2024 In-Center Hemodialysis Treatment [id number]:10:58.000Z 2156-61-75Z36:25:57.000Z BP Sitting (Pre-Dialysis) 152/68 mmHg BP Sitting (Post-Dialysis) 120/77 mmHg Concurrent Access: falseAV Graft Upper Arm (Left) Arterial Sitting Heart Rate Pre-Dialysis 85 BPM BP Standing (Post-Dialysis) 117/68 mmHg Temperature Pre-Dialysis 97.3 degF Sitting Heart Ra te Post-Dialysis 76 BPM Standing Heart Rate Post-Renée lysis 70 BPM Temperature Post-Dialysis 97 .8 degF February 21, 2024 In-Center Hemodialysis Treatment [id number]:12:57.000Z 3219-25-66I68:13:58.000Z BP Sitting (Pre-Dialysis) 141/73 mmHg BP Sitting (Post-Dialysis) 133/73 mmHg Concurrent Access: falseAV Graft Upper Arm (Left) Arterial BP Standing (Pre-Dialysis) 173/67 mmHg BP Standing (P ost-Dialysis) 115/55 mmHg Sitting Heart Rate Pre-Dialysis 101 BPM Sitting Heart Rate Post-Dialysis 75 BPM Standing Heart Rate Pre-Dialysis 101 BPM Standing Heart Rate Post-Dialysis 83 BPM Temperature Pre-Dialysis 97.4 degF Temperature Post -Dialysis 97.6 degF February 19, 2024 In-Center Hemodialysis Treatment 8610-78-27Y04:35:58.000Z 9538-59-75S38:31:58.000Z BP Sitting (Pre-Dialysis) 177/84 mmHg BP Sitting (Post-Dialysis) 117/70 mmHg Concurrent Access: falseAV Graft Upper Arm (Left) Arterial BP Standing (Pre-Dialysis) 159/103 mmHg BP Standing (P ost-Dialysis) 119/64 mmHg Sitting Heart Rate Pre-Dialysis 88 BPM Sitting Heart Rate Post-Dialysis 68 BPM Standing Heart Rate Pre-Dialysis 94 BPM Standing Heart Rate Post-Dialysis 67 BPM Temperature Pre-Dialysis 97.6 degF Temperature Post -Dialysis 97.8 degF 2024 In-Center Hemodialysis Treatment [id number]:19:00.000Z 6841-51-29D90:20:47.000Z BP Sitting (Pre-Dialysis) 135/74 mmHg BP Sitting (Post-Dialysis) 134/67 mmHg Concurrent Access: falseAV Graft Upper Arm (Left) Arterial BP Standing (Pre-Dialysis) 135/77 mmHg BP Standing (P ost-Dialysis) 142/68 mmHg Sitting Heart Rate Pre-Dialysis 91 BPM Sitting Heart Rate Post-Dialysis 70 BPM Standing Heart Rate Pre-Dialysis 93 BPM Standing Heart Rate Post-Dialysis 76 BPM Temperature Pre-Dialysis 97.4 degF Temperature Post -Dialysis 97.8 degF February 14, 2024 In-Center Hemodialysis Treatment 5780-27-95Y90:26:00.000Z 6947-32-76Z89:31:28.000Z BP Sitting (Pre-Dialysis) 161/83 mmHg BP Sitting (Post-Dialysis) 126/64 mmHg Concurrent Access: falseAV Graft Upper Arm (Left) Arterial Sitting Heart Rate Pre-Dialysis 80 BPM BP Standing (Post-Dialysis) 126/67 mmHg Temperature Pre-Dialysis 97.6 degF Sitting Heart Ra te Post-Dialysis 64 BPM Standing Heart Rate Post-Renée lysis 75 BPM Temperature Post-Dialysis 97 .8 degF February 12, 2024 In-Center Hemodialysis Treatment 5825-79-45Z84:23:00.000Z 2118-73-47N35:25:58.000Z BP Sitting (Pre-Dialysis) 124/69 mmHg BP Sitting (Post-Dialysis) 108/78 mmHg Concurrent Access: falseAV Graft Upper Arm (Left) Arterial BP Standing (Pre-Dialysis) 139/74 mmHg BP Standing (P ost-Dialysis) 121/69 mmHg Sitting Heart Rate Pre-Dialysis 71 BPM Sitting Heart Rate Post-Dialysis 64 BPM Standing Heart Rate Pre-Dialysis 86 BPM Standing Heart Rate Post-Dialysis 63 BPM Temperature Pre-Dialysis 97.5 degF Temperature Post -Dialysis 97 degF February 09, 2024 In-Center Hemodialysis Treatment [id number]:24:00.000Z 5750-34-64Z13:25:46.000Z BP Sitting (Pre-Dialysis) 175/74 mmHg BP Sitting (Post-Dialysis) 120/55 mmHg Concurrent Access: falseAV Graft Upper Arm (Left) Arterial Sitting Heart Rate Pre-Dialysis 81 BPM BP Standing (Post-Dialysis) 117/61 mmHg Temperature Pre-Dialysis 97.5 degF Sitting Heart Ra te Post-Dialysis 65 BPM Standing Heart Rate Post-Renée lysis 66 BPM Temperature Post-Dialysis 97 .8 degF February 07, 2024 In-Center Hemodialysis Treatment 1800-21-70S07:13:00.000Z 8231-06-20M12:13:49.000Z BP Sitting (Pre-Dialysis) 142/74 mmHg BP Sitting (Post-Dialysis) 132/68 mmHg Concurrent Access: falseAV Graft Upper Arm (Left) Arterial Sitting Heart Rate Pre-Dialysis 84 BPM BP Standing (Post-Dialysis) 118/66 mmHg Temperature Pre-Dialysis 97.5 degF Sitting Heart Ra te Post-Dialysis 71 BPM Standing Heart Rate Post-Renée lysis 73 BPM Temperature Post-Dialysis 97 degF February 05, 2024 In-Center Hemodialysis Treatment 2661-41-12I75:20:00.000Z 6956-30-40A80:21:49.000Z BP Sitting (Pre-Dialysis) 150/74 mmHg BP Sitting (Post-Dialysis) 115/67 mmHg Concurrent Access: falseAV Graft Upper Arm (Left) Arterial Sitting Heart Rate Pre-Dialysis 81 BPM BP Standing (Post-Dialysis) 110/78 mmHg Temperature Pre-Dialysis 97.8 degF Sitting Heart Ra te Post-Dialysis 78 BPM Standing Heart Rate Post-Renée lysis 70 BPM Temperature Post-Dialysis 97 .2 degF February 02, 2024 In-Center Hemodialysis Treatment [id number]:21:22.000Z 9464-25-33Z23:34:22.000Z BP Sitting (Pre-Dialysis) 123/47 mmHg BP Sitting (Post-Dialysis) 99/63 mmHg Concurrent Access: falseAV Graft Upper Arm (Left) Arterial Sitting Heart Rate Pre-Dialysis 74 BPM BP Standing (Post-Dialysis) 124/71 mmHg Temperature Pre-Dialysis 97.6 degF Sitting Heart Ra te Post-Dialysis 77 BPM Standing Heart Rate Post-Renée lysis 79 BPM Temperature Post-Dialysis 97 .2 degF January 31, 2024 In-Center Hemodialysis Treatment [id number]:32:00.000Z 7147-22-85C90:38:54.000Z BP Sitting (Pre-Dialysis) 164/69 mmHg BP Sitting (Post-Dialysis) 113/77 mmHg Concurrent Access: falseAV Graft Upper Arm (Left) Arterial Sitting Heart Rate Pre-Dialysis 81 BPM BP Standing (Post-Dialysis) 114/56 mmHg Temperature Pre-Dialysis 97.6 degF Sitting Heart Ra te Post-Dialysis 70 BPM Standing Heart Rate Post-Renée lysis 66 BPM Temperature Post-Dialysis 97 .2 degF January 29, 2024 In-Center Hemodialysis Treatment 3091-50-23O61:24:00.000Z 3949-69-55S77:27:26.000Z BP Sitting (Pre-Dialysis) 184/69 mmHg BP Sitting (Post-Dialysis) 143/53 mmHg Concurrent Access: falseAV Graft Upper Arm (Left) Arterial BP Standing (Pre-Dialysis) 155/49 mmHg Sitti ng Heart Rate Post-Dialysis 73 BPM Sitting Heart Rate Pre-Dialysis 87 BPM Temperatu re Post-Dialysis 97.8 degF Standing Heart Rate Pre-Dialysis 83 BPM Temperature Pre-Dialysis 97.6 degF January 26, 2024 In-Center Hemodialysis Treatment [id number]:18:00.000Z 8131-63-82B30:24:08.000Z BP Sitting (Pre-Dialysis) 165/59 mmHg BP Sitting (Post-Dialysis) 127/63 mmHg Concurrent Access: falseAV Graft Upper Arm (Left) Arterial BP Standing (Pre-Dialysis) 161/99 mmHg BP Standing (P ost-Dialysis) 128/63 mmHg Sitting Heart Rate Pre-Dialysis 87 BPM Sitting Heart Rate Post-Dialysis 69 BPM Standing Heart Rate Pre-Dialysis 80 BPM Standing Heart Rate Post-Dialysis 74 BPM Temperature Pre-Dialysis 97.6 degF Temperature Post -Dialysis 97.8 degF January 24, 2024 In-Center Hemodialysis Treatment [id number]:23:08.000Z 6945-05-74R84:30:07.000Z BP Sitting (Pre-Dialysis) 137/67 mmHg BP Sitting (Post-Dialysis) 112/62 mmHg Concurrent Access: falseAV Graft Upper Arm (Left) Arterial BP Standing (Pre-Dialysis) 143/73 mmHg BP Standing (P ost-Dialysis) 121/62 mmHg Sitting Heart Rate Pre-Dialysis 79 BPM Sitting Heart Rate Post-Dialysis 71 BPM Standing Heart Rate Pre-Dialysis 85 BPM Standing Heart Rate Post-Dialysis 64 BPM Temperature Pre-Dialysis 97.8 degF January 22, 2024 In-Center Hemodialysis Treatment 4619-17-46C76:29:08.000Z 7227-56-32Z20:32:07.000Z BP Sitting (Pre-Dialysis) 172/94 mmHg BP Sitting (Post-Dialysis) 116/49 mmHg Concurrent Access: falseAV Graft Upper Arm (Left) Arterial Sitting Heart Rate Pre-Dialysis 86 BPM BP Standing (Post-Dialysis) 133/72 mmHg Temperature Pre-Dialysis 97.2 degF Sitting Heart Ra te Post-Dialysis 77 BPM Standing Heart Rate Post-Renée lysis 74 BPM Temperature Post-Dialysis 97 .8 degF January 19, 2024 In-Center Hemodialysis Treatment [id number]:28:07.000Z 8292-88-73U46:33:07.000Z BP Sitting (Pre-Dialysis) 151/69 mmHg BP Sitting (Post-Dialysis) 123/65 mmHg Concurrent Access: falseAV Graft Upper Arm (Left) Arterial Sitting Heart Rate Pre-Dialysis 84 BPM BP Standing (Post-Dialysis) 129/58 mmHg Temperature Pre-Dialysis 97.6 degF Sitting Heart Ra te Post-Dialysis 72 BPM Standing Heart Rate Post-Renée lysis 84 BPM Temperature Post-Dialysis 97 .8 degF January 17, 2024 In-Center Hemodialysis Treatment [id number]:29:00.000Z 6084-54-83P87:39:07.000Z BP Sitting (Pre-Dialysis) 161/77 mmHg BP Sitting (Post-Dialysis) 119/63 mmHg Concurrent Access: falseAV Graft Upper Arm (Left) Arterial Sitting Heart Rate Pre-Dialysis 93 BPM BP Standing (Post-Dialysis) 120/64 mmHg Temperature Pre-Dialysis 97.5 degF Sitting Heart Ra te Post-Dialysis 72 BPM Standing Heart Rate Post-Renée lysis 72 BPM Temperature Post-Dialysis 97 .8 degF January 15, 2024 In-Center Hemodialysis Treatment 3064-60-93U55:26:00.000Z 2258-74-24I52:26:07.000Z BP Sitting (Pre-Dialysis) 160/71 mmHg BP Sitting (Post-Dialysis) 108/58 mmHg Concurrent Access: falseAV Graft Upper Arm (Left) Arterial BP Standing (Pre-Dialysis) 198/77 mmHg BP Standing (P ost-Dialysis) 122/59 mmHg Sitting Heart Rate Pre-Dialysis 98 BPM Sitting Heart Rate Post-Dialysis 68 BPM Standing Heart Rate Pre-Dialysis 99 BPM Standing Heart Rate Post-Dialysis 66 BPM Temperature Pre-Dialysis 97.6 degF Temperature Post -Dialysis 97.8 degF January 12, 2024 In-Center Hemodialysis Treatment 1508-15-39L67:24:00.000Z 0023-05-01H79:24:40.000Z BP Sitting (Pre-Dialysis) 172/64 mmHg BP Sitting (Post-Dialysis) 108/63 mmHg Concurrent Access: falseAV Graft Upper Arm (Left) Arterial BP Standing (Pre-Dialysis) 137/94 mmHg BP Standing (P ost-Dialysis) 126/62 mmHg Sitting Heart Rate Pre-Dialysis 99 BPM Sitting Heart Rate Post-Dialysis 65 BPM Standing Heart Rate Pre-Dialysis 93 BPM Standing Heart Rate Post-Dialysis 73 BPM Temperature Pre-Dialysis 97.6 degF Temperature Post -Dialysis 97.6 degF January 10, 2024 In-Center Hemodialysis Treatment [id number]:50:39.000Z 3144-52-81C74:01:40.000Z BP Sitting (Pre-Dialysis) 162/95 mmHg BP Sitting (Post-Dialysis) 113/82 mmHg Concurrent Access: falseAV Graft Upper Arm (Left) Arterial Sitting Heart Rate Pre-Dialysis 101 BPM Sitting H eart Rate Post-Dialysis 59 BPM Temperature Pre-Dialysis 97.8 degF Temperature Post -Dialysis 97.6 degF January 08, 2024 In-Center Hemodialysis Treatment [id number]:43:00.000Z 0303-03-08R86:28:40.000Z BP Sitting (Pre-Dialysis) 148/79 mmHg BP Sitting (Post-Dialysis) 120/64 mmHg Concurrent Access: falseAV Graft Upper Arm (Left) Arterial Sitting Heart Rate Pre-Dialysis 83 BPM BP Standing (Post-Dialysis) 110/91 mmHg Temperature Pre-Dialysis 98.1 degF Sitting Heart Ra te Post-Dialysis 65 BPM Standing Heart Rate Post-Renée lysis 71 BPM Temperature Post-Dialysis 97 .8 degF January 05, 2024 In-Center Hemodialysis Treatment [id number]:19:46.000Z 4252-18-40R85:30:45.000Z BP Sitting (Pre-Dialysis) 146/65 mmHg BP Sitting (Post-Dialysis) 125/67 mmHg Concurrent Access: falseAV Graft Upper Arm (Left) Arterial BP Standing (Pre-Dialysis) 150/71 mmHg BP Standing (P ost-Dialysis) 124/74 mmHg Sitting Heart Rate Pre-Dialysis 86 BPM Sitting Heart Rate Post-Dialysis 70 BPM Standing Heart Rate Pre-Dialysis 87 BPM Standing Heart Rate Post-Dialysis 76 BPM Temperature Pre-Dialysis 97.3 degF Temperature Post -Dialysis 97.8 degF January 03, 2024 In-Center Hemodialysis Treatment 1029-31-77S62:15:31.000Z 7441-61-94S32:31:32.000Z BP Sitting (Pre-Dialysis) 149/72 mmHg BP Sitting (Post-Dialysis) 129/58 mmHg Concurrent Access: falseAV Graft Upper Arm (Left) Arterial Sitting Heart Rate Pre-Dialysis 84 BPM BP Standing (Post-Dialysis) 107/61 mmHg Temperature Pre-Dialysis 97.9 degF Sitting Heart Ra te Post-Dialysis 66 BPM Standing Heart Rate Post-Renée lysis 65 BPM Temperature Post-Dialysis 97 .8 degF January 01, 2024 In-Center Hemodialysis Treatment 1994-83-23B21:26:00.000Z 9671-30-12Y73:32:34.000Z BP Sitting (Pre-Dialysis) 131/69 mmHg BP Sitting (Post-Dialysis) 133/110 mmHg Concurrent Access: falseAV Graft Upper Arm (Left) Arterial BP Standing (Pre-Dialysis) 144/78 mmHg Sitti ng Heart Rate Post-Dialysis 75 BPM Sitting Heart Rate Pre-Dialysis 92 BPM Temperatu re Post-Dialysis 97.1 degF Standing Heart Rate Pre-Dialysis 97 BPM Temperature Pre-Dialysis 97.9 degF December 29, 2023 In-Center Hemodialysis Treatment 0725-07-34Z03:29:46.000Z 3410-93-39P70:27:45.000Z BP Sitting (Pre-Dialysis) 157/75 mmHg BP Sitting (Post-Dialysis) 130/70 mmHg Concurrent Access: falseAV Graft Upper Arm (Left) Arterial Sitting Heart Rate Pre-Dialysis 93 BPM BP Standing (Post-Dialysis) 130/61 mmHg Temperature Pre-Dialysis 97.6 degF Sitting Heart Ra te Post-Dialysis 76 BPM Standing Heart Rate Post-Renée lysis 72 BPM Temperature Post-Dialysis 97 .8 degF December 27, 2023 In-Center Hemodialysis Treatment 5409-27-31O14:24:00.000Z 5155-72-65X80:31:45.000Z BP Sitting (Pre-Dialysis) 165/69 mmHg BP Sitting (Post-Dialysis) 131/60 mmHg Concurrent Access: falseAV Graft Upper Arm (Left) Arterial BP Standing (Pre-Dialysis) 179/70 mmHg BP Standing (P ost-Dialysis) 145/53 mmHg Sitting Heart Rate Pre-Dialysis 90 BPM Sitting Heart Rate Post-Dialysis 68 BPM Standing Heart Rate Pre-Dialysis 93 BPM Standing Heart Rate Post-Dialysis 70 BPM Temperature Pre-Dialysis 97.2 degF Temperature Post -Dialysis 97.1 degF December 25, 2023 In-Center Hemodialysis Treatment [id number]:23:25.000Z [id number]:24:26.000Z BP Sitting (Pre-Dialysis) 136/79 mmHg BP Sitting (Post-Dialysis) 128/62 mmHg Concurrent Access: falseAV Graft Upper Arm (Left) Arterial BP Standing (Pre-Dialysis) 180/82 mmHg BP Standing (P ost-Dialysis) 138/68 mmHg Sitting Heart Rate Pre-Dialysis 83 BPM Sitting Heart Rate Post-Dialysis 71 BPM Standing Heart Rate Pre-Dialysis 96 BPM Standing Heart Rate Post-Dialysis 74 BPM Temperature Pre-Dialysis 97.7 degF Temperature Post -Dialysis 97.4 degF December 22, 2023 In-Center Hemodialysis Treatment [id number]:39:09.000Z [id number]:33:09.000Z BP Sitting (Pre-Dialysis) 164/69 mmHg BP Sitting (Post-Dialysis) 130/66 mmHg Concurrent Access: falseAV Graft Upper Arm (Left) Arterial Sitting Heart Rate Pre-Dialysis 85 BPM BP Standing (Post-Dialysis) 129/69 mmHg Temperature Pre-Dialysis 97.8 degF Sitting Heart Ra te Post-Dialysis 70 BPM Standing Heart Rate Post-Renée lysis 72 BPM Temperature Post-Dialysis 97 .8 degF December 20, 2023 In-Center Hemodialysis Treatment [id number]:35:00.000Z [id number]:38:40.000Z BP Sitting (Pre-Dialysis) 162/75 mmHg BP Sitting (Post-Dialysis) 116/56 mmHg Concurrent Access: falseAV Graft Upper Arm (Left) Arterial Sitting Heart Rate Pre-Dialysis 109 BPM BP Standing (Post-Dialysis) 126/65 mmHg Temperature Pre-Dialysis 97.8 degF Sitting Heart Ra te Post-Dialysis 67 BPM Standing Heart Rate Post-Renée lysis 73 BPM December 18, 2023 In-Center Hemodialysis Treatment [id number]:23:00.000Z [id number]:26:14.000Z BP Sitting (Pre-Dialysis) 155/71 mmHg BP Sitting (Post-Dialysis) 159/68 mmHg Concurrent Access: falseAV Graft Upper Arm (Left) Arterial BP Standing (Pre-Dialysis) 169/60 mmHg BP Standing (P ost-Dialysis) 148/68 mmHg Sitting Heart Rate Pre-Dialysis 94 BPM Sitting Heart Rate Post-Dialysis 69 BPM Standing Heart Rate Pre-Dialysis 95 BPM Standing Heart Rate Post-Dialysis 71 BPM Temperature Pre-Dialysis 97.6 degF Temperature Post -Dialysis 97.8 degF December 15, 2023 In-Center Hemodialysis Treatment [id number]:19:00.000Z [id number]:21:17.000Z BP Sitting (Pre-Dialysis) 142/64 mmHg BP Sitting (Post-Dialysis) 118/74 mmHg Concurrent Access: falseAV Graft Upper Arm (Left) Arterial BP Standing (Pre-Dialysis) 133/65 mmHg BP Standing (P ost-Dialysis) 128/72 mmHg Sitting Heart Rate Pre-Dialysis 88 BPM Sitting Heart Rate Post-Dialysis 72 BPM Standing Heart Rate Pre-Dialysis 89 BPM Standing Heart Rate Post-Dialysis 72 BPM Temperature Pre-Dialysis 97.6 degF Temperature Post -Dialysis 97.1 degF December 13, 2023 In-Center Hemodialysis Treatment [id number]:19:00.000Z [id number]:21:00.000Z BP Sitting (Pre-Dialysis) 129/58 mmHg BP Sitting (Post-Dialysis) 126/64 mmHg Concurrent Access: falseAV Graft Upper Arm (Left) Arterial BP Standing (Pre-Dialysis) 150/71 mmHg BP Standing (P ost-Dialysis) 127/46 mmHg Sitting Heart Rate Pre-Dialysis 89 BPM Sitting Heart Rate Post-Dialysis 69 BPM Standing Heart Rate Pre-Dialysis 89 BPM Standing Heart Rate Post-Dialysis 72 BPM Temperature Pre-Dialysis 97.5 degF Temperature Post -Dialysis 97.8 degF December 11, 2023 In-Center Hemodialysis Treatment [id number]:32:00.000Z 0612-17-00H62:31:17.000Z BP Sitting (Pre-Dialysis) 167/76 mmHg BP Sitting (Post-Dialysis) 131/70 mmHg Concurrent Access: falseAV Graft Upper Arm (Left) Arterial BP Standing (Pre-Dialysis) 167/76 mmHg BP Standing (P ost-Dialysis) 110/73 mmHg Sitting Heart Rate Pre-Dialysis 95 BPM Sitting Heart Rate Post-Dialysis 73 BPM Standing Heart Rate Pre-Dialysis 95 BPM Standing Heart Rate Post-Dialysis 75 BPM Temperature Pre-Dialysis 97.2 degF Temperature Post -Dialysis 97.4 degF December 08, 2023 In-Center Hemodialysis Treatment [id number]:30:00.000Z [id number]:19:20.000Z BP Sitting (Pre-Dialysis) 165/76 mmHg BP Sitting (Post-Dialysis) 150/64 mmHg Concurrent Access: falseAV Graft Upper Arm (Left) Arterial BP Standing (Pre-Dialysis) 147/76 mmHg BP Standing (P ost-Dialysis) 142/66 mmHg Sitting Heart Rate Pre-Dialysis 69 BPM Sitting Heart Rate Post-Dialysis 65 BPM Standing Heart Rate Pre-Dialysis 68 BPM Standing Heart Rate Post-Dialysis 71 BPM Temperature Pre-Dialysis 97.9 degF Temperature Post -Dialysis 97.8 degF December 06, 2023 In-Center Hemodialysis Treatment [id number]:26:15.000Z [id number]:31:15.000Z BP Sitting (Pre-Dialysis) 166/78 mmHg BP Sitting (Post-Dialysis) 113/53 mmHg Concurrent Access: falseAV Graft Upper Arm (Left) Arterial BP Standing (Pre-Dialysis) 169/79 mmHg BP Standing (P ost-Dialysis) 130/61 mmHg Sitting Heart Rate Pre-Dialysis 82 BPM Sitting Heart Rate Post-Dialysis 71 BPM Standing Heart Rate Pre-Dialysis 85 BPM Standing Heart Rate Post-Dialysis 72 BPM Temperature Pre-Dialysis 97.6 degF Temperature Post -Dialysis 97.8 degF December 04, 2023 In-Center Hemodialysis Treatment [id number]:33:00.000Z 3415-87-19W06:39:17.000Z BP Sitting (Pre-Dialysis) 140/73 mmHg BP Sitting (Post-Dialysis) 127/64 mmHg Concurrent Access: falseAV Graft Upper Arm (Left) Arterial BP Standing (Pre-Dialysis) 161/69 mmHg BP Standing (P ost-Dialysis) 131/61 mmHg Sitting Heart Rate Pre-Dialysis 83 BPM Sitting Heart Rate Post-Dialysis 71 BPM Standing Heart Rate Pre-Dialysis 84 BPM Standing Heart Rate Post-Dialysis 71 BPM Temperature Pre-Dialysis 97 degF Temperature Post -Dialysis 97.8 degF December 01, 2023 In-Center Hemodialysis Treatment [id number]:22:00.000Z [id number]:29:11.000Z BP Sitting (Pre-Dialysis) 147/77 mmHg BP Sitting (Post-Dialysis) 144/57 mmHg Concurrent Access: falseAV Graft Upper Arm (Left) Arterial BP Standing (Pre-Dialysis) 162/78 mmHg BP Standing (P ost-Dialysis) 134/55 mmHg Sitting Heart Rate Pre-Dialysis 95 BPM Sitting Heart Rate Post-Dialysis 75 BPM Standing Heart Rate Pre-Dialysis 94 BPM Standing Heart Rate Post-Dialysis 70 BPM Temperature Pre-Dialysis 97.6 degF Temperature Post -Dialysis 97.8 degF November 29, 2023 In-Center Hemodialysis Treatment [id number]:26:38.000Z [id number]:27:37.000Z BP Sitting (Pre-Dialysis) 158/74 mmHg BP Sitting (Post-Dialysis) 140/66 mmHg Concurrent Access: falseAV Graft Upper Arm (Left) Arterial BP Standing (Pre-Dialysis) 174/74 mmHg BP Standing (P ost-Dialysis) 145/65 mmHg Sitting Heart Rate Pre-Dialysis 71 BPM Sitting Heart Rate Post-Dialysis 72 BPM Standing Heart Rate Pre-Dialysis 83 BPM Standing Heart Rate Post-Dialysis 70 BPM Temperature Pre-Dialysis 97.6 degF Temperature Post -Dialysis 97.8 degF November 27, 2023 In-Center Hemodialysis Treatment [id number]:25:37.000Z [id number]:28:37.000Z BP Sitting (Pre-Dialysis) 165/73 mmHg BP Sitting (Post-Dialysis) 138/55 mmHg Concurrent Access: falseAV Graft Upper Arm (Left) Arterial BP Standing (Pre-Dialysis) 163/80 mmHg Sitti ng Heart Rate Post-Dialysis 69 BPM Sitting Heart Rate Pre-Dialysis 89 BPM Temperatu re Post-Dialysis 97.8 degF Standing Heart Rate Pre-Dialysis 90 BPM Temperature Pre-Dialysis 97.7 degF November 24, 2023 In-Center Hemodialysis Treatment [id number]:12:00.000Z 7419-24-66R51:15:42.000Z BP Sitting (Pre-Dialysis) 152/76 mmHg BP Sitting (Post-Dialysis) 152/71 mmHg Concurrent Access: falseAV Graft Upper Arm (Left) Arterial BP Standing (Pre-Dialysis) 165/72 mmHg BP Standing (P ost-Dialysis) 161/78 mmHg Sitting Heart Rate Pre-Dialysis 82 BPM Sitting Heart Rate Post-Dialysis 69 BPM Standing Heart Rate Pre-Dialysis 86 BPM Standing Heart Rate Post-Dialysis 77 BPM Temperature Pre-Dialysis 97.9 degF Temperature Post -Dialysis 97.6 degF November 22, 2023 In-Center Hemodialysis Treatment [id number]:33:00.000Z 3330-12-75M79:33:59.000Z BP Sitting (Pre-Dialysis) 172/68 mmHg BP Sitting (Post-Dialysis) 121/46 mmHg Concurrent Access: falseAV Graft Upper Arm (Left) Arterial BP Standing (Pre-Dialysis) 169/72 mmHg BP Standing (P ost-Dialysis) 118/52 mmHg Sitting Heart Rate Pre-Dialysis 90 BPM Sitting Heart Rate Post-Dialysis 70 BPM Standing Heart Rate Pre-Dialysis 92 BPM Standing Heart Rate Post-Dialysis 68 BPM Temperature Pre-Dialysis 97.9 degF Temperature Post -Dialysis 97 degF November 20, 2023 In-Center Hemodialysis Treatment [id number]:28:00.000Z [id number]:34:59.000Z BP Sitting (Pre-Dialysis) 159/74 mmHg BP Sitting (Post-Dialysis) 113/65 mmHg Concurrent Access: falseAV Graft Upper Arm (Left) Arterial BP Standing (Pre-Dialysis) 150/74 mmHg BP Standing (P ost-Dialysis) 126/63 mmHg Sitting Heart Rate Pre-Dialysis 90 BPM Sitting Heart Rate Post-Dialysis 83 BPM Standing Heart Rate Pre-Dialysis 90 BPM Standing Heart Rate Post-Dialysis 75 BPM Temperature Pre-Dialysis 97.7 degF Temperature Post -Dialysis 97.8 degF November 17, 2023 In-Center Hemodialysis Treatment 5324-03-19H40:28:10.000Z [id number]:35:09.000Z BP Sitting (Pre-Dialysis) 168/65 mmHg BP Sitting (Post-Dialysis) 133/64 mmHg Concurrent Access: falseAV Graft Upper Arm (Left) Arterial Sitting Heart Rate Pre-Dialysis 92 BPM BP Standing (Post-Dialysis) 128/62 mmHg Temperature Pre-Dialysis 97.8 degF Sitting Heart Ra te Post-Dialysis 74 BPM Standing Heart Rate Post-Ernée lysis 74 BPM Temperature Post-Dialysis 97 .8 degF November 15, 2023 In-Center Hemodialysis Treatment [id number]:26:33.000Z [id number]:29:32.000Z BP Sitting (Pre-Dialysis) 152/73 mmHg BP Sitting (Post-Dialysis) 128/58 mmHg Concurrent Access: falseAV Graft Upper Arm (Left) Arterial BP Standing (Pre-Dialysis) 145/73 mmHg BP Standing (P ost-Dialysis) 135/48 mmHg Sitting Heart Rate Pre-Dialysis 82 BPM Sitting Heart Rate Post-Dialysis 89 BPM Standing Heart Rate Pre-Dialysis 66 BPM Standing Heart Rate Post-Dialysis 75 BPM Temperature Pre-Dialysis 97 degF Temperature Post -Dialysis 97.8 degF November 14, 2023 In-Center Hemodialysis Treatment 2560-05-13Y01:38:09.000Z 7296-05-26D12:40:09.000Z BP Sitting (Pre-Dialysis) 193/86 mmHg BP Sitting (Post-Dialysis) 136/70 mmHg Concurrent Access: falseAV Graft Upper Arm (Left) Arterial BP Standing (Pre-Dialysis) 198/63 mmHg BP Standing (P ost-Dialysis) 133/77 mmHg Sitting Heart Rate Pre-Dialysis 106 BPM Sitting Heart Rate Post-Dialysis 76 BPM Standing Heart Rate Pre-Dialysis 112 BPM Standing Heart Rate Post-Dialysis 78 BPM Temperature Pre-Dialysis 97.6 degF Temperature Post -Dialysis 97.9 degF November 10, 2023 In-Center Hemodialysis Treatment [id number]:26:21.000Z 2419-17-15K50:23:21.000Z BP Sitting (Pre-Dialysis) 164/77 mmHg BP Sitting (Post-Dialysis) 129/62 mmHg Concurrent Access: falseAV Graft Upper Arm (Left) Arterial Sitting Heart Rate Pre-Dialysis 87 BPM BP Standing (Post-Dialysis) 148/68 mmHg Temperature Pre-Dialysis 97.9 degF Sitting Heart Ra te Post-Dialysis 75 BPM Standing Heart Rate Post-Renée lysis 75 BPM Temperature Post-Dialysis 97 .6 degF November 08, 2023 In-Center Hemodialysis Treatment [id number]:28:20.000Z [id number]:31:21.000Z BP Sitting (Pre-Dialysis) 145/75 mmHg BP Sitting (Post-Dialysis) 142/60 mmHg Concurrent Access: falseAV Graft Upper Arm (Left) Arterial BP Standing (Pre-Dialysis) 132/89 mmHg BP Standing (P ost-Dialysis) 132/61 mmHg Sitting Heart Rate Pre-Dialysis 86 BPM Sitting Heart Rate Post-Dialysis 76 BPM Standing Heart Rate Pre-Dialysis 94 BPM Standing Heart Rate Post-Dialysis 78 BPM Temperature Pre-Dialysis 97.9 degF Temperature Post -Dialysis 97.8 degF November 06, 2023 In-Center Hemodialysis Treatment [id number]:26:00.000Z 9263-29-81I14:30:53.000Z BP Sitting (Pre-Dialysis) 149/83 mmHg BP Sitting (Post-Dialysis) 113/58 mmHg Concurrent Access: falseAV Graft Upper Arm (Left) Arterial BP Standing (Pre-Dialysis) 191/113 mmHg BP Standing (P ost-Dialysis) 123/60 mmHg Sitting Heart Rate Pre-Dialysis 89 BPM Sitting Heart Rate Post-Dialysis 63 BPM Standing Heart Rate Pre-Dialysis 75 BPM Standing Heart Rate Post-Dialysis 67 BPM Temperature Pre-Dialysis 97.8 degF Temperature Post -Dialysis 97.8 degF November 03, 2023 In-Center Hemodialysis Treatment [id number]:24:00.000Z 1560-70-35N80:30:56.000Z BP Sitting (Pre-Dialysis) 162/76 mmHg BP Sitting (Post-Dialysis) 122/55 mmHg Concurrent Access: falseAV Graft Upper Arm (Left) Arterial Sitting Heart Rate Pre-Dialysis 78 BPM BP Standing (Post-Dialysis) 133/60 mmHg Temperature Pre-Dialysis 97.9 degF Sitting Heart Ra te Post-Dialysis 72 BPM Standing Heart Rate Post-Renée lysis 73 BPM Temperature Post-Dialysis 97 .8 degF November 01, 2023 In-Center Hemodialysis Treatment [id number]:28:52.000Z 9194-53-06Z55:32:52.000Z BP Sitting (Pre-Dialysis) 167/79 mmHg BP Sitting (Post-Dialysis) 114/53 mmHg Concurrent Access: falseAV Graft Upper Arm (Left) Arterial BP Standing (Pre-Dialysis) 164/82 mmHg BP Standing (P ost-Dialysis) 117/59 mmHg Sitting Heart Rate Pre-Dialysis 87 BPM Sitting Heart Rate Post-Dialysis 70 BPM Standing Heart Rate Pre-Dialysis 92 BPM Standing Heart Rate Post-Dialysis 73 BPM Temperature Pre-Dialysis 97.8 degF Temperature Post -Dialysis 97.8 degF October 30, 2023 In-Center Hemodialysis Treatment 9969-15-61D07:23:00.000Z 8177-65-62K87:24:00.000Z BP Sitting (Pre-Dialysis) 167/68 mmHg BP Sitting (Post-Dialysis) 120/60 mmHg Concurrent Access: falseAV Graft Upper Arm (Left) Arterial BP Standing (Pre-Dialysis) 155/70 mmHg BP Standing (P ost-Dialysis) 123/66 mmHg Sitting Heart Rate Pre-Dialysis 98 BPM Sitting Heart Rate Post-Dialysis 80 BPM Standing Heart Rate Pre-Dialysis 93 BPM Standing Heart Rate Post-Dialysis 70 BPM Temperature Pre-Dialysis 97.6 degF Temperature Post -Dialysis 97.8 degF October 27, 2023 In-Center Hemodialysis Treatment [id number]:24:00.000Z 5265-28-35B99:27:37.000Z BP Sitting (Pre-Dialysis) 181/78 mmHg BP Sitting (Post-Dialysis) 125/69 mmHg Concurrent Access: falseAV Graft Upper Arm (Left) Arterial BP Standing (Pre-Dialysis) 171/78 mmHg BP Standing (P ost-Dialysis) 130/70 mmHg Sitting Heart Rate Pre-Dialysis 98 BPM Sitting Heart Rate Post-Dialysis 75 BPM Standing Heart Rate Pre-Dialysis 94 BPM Standing Heart Rate Post-Dialysis 75 BPM Temperature Pre-Dialysis 97.9 degF Temperature Post -Dialysis 97.8 degF October 25, 2023 In-Center Hemodialysis Treatment [id number]:27:26.000Z 6275-02-93J55:28:26.000Z BP Sitting (Pre-Dialysis) 180/86 mmHg BP Sitting (Post-Dialysis) 141/65 mmHg Concurrent Access: falseAV Graft Upper Arm (Left) Arterial BP Standing (Pre-Dialysis) 171/66 mmHg BP Standing (P ost-Dialysis) 131/66 mmHg Sitting Heart Rate Pre-Dialysis 102 BPM Sitting Heart Rate Post-Dialysis 75 BPM Standing Heart Rate Pre-Dialysis 102 BPM Standing Heart Rate Post-Dialysis 79 BPM Temperature Pre-Dialysis 97.9 degF Temperature Post -Dialysis 97.8 degF October 22, 2023 In-Center Hemodialysis Treatment 1982-12-49Q89:48:25.000Z 6295-42-25S89:31:26.000Z BP Sitting (Pre-Dialysis) 181/71 mmHg BP Sitting (Post-Dialysis) 127/60 mmHg Concurrent Access: falseAV Graft Upper Arm (Left) Arterial BP Standing (Pre-Dialysis) 204/67 mmHg BP Standing (P ost-Dialysis) 150/67 mmHg Sitting Heart Rate Pre-Dialysis 94 BPM Sitting Heart Rate Post-Dialysis 79 BPM Standing Heart Rate Pre-Dialysis 103 BPM Standing Heart Rate Post-Dialysis 75 BPM Temperature Pre-Dialysis 97.9 degF Temperature Post -Dialysis 97.8 degF October 20, 2023 In-Center Hemodialysis Treatment [id number]:27:00.000Z 4240-95-86P36:30:48.000Z BP Sitting (Pre-Dialysis) 189/88 mmHg BP Sitting (Post-Dialysis) 120/54 mmHg Concurrent Access: falseAV Graft Upper Arm (Left) Arterial BP Standing (Pre-Dialysis) 187/86 mmHg BP Standing (P ost-Dialysis) 115/51 mmHg Sitting Heart Rate Pre-Dialysis 92 BPM Sitting Heart Rate Post-Dialysis 75 BPM Standing Heart Rate Pre-Dialysis 94 BPM Standing Heart Rate Post-Dialysis 76 BPM Temperature Pre-Dialysis 97.7 degF Temperature Post -Dialysis 97.8 degF October 18, 2023 In-Center Hemodialysis Treatment [id number]:28:48.000Z 0343-90-06J08:32:47.000Z BP Sitting (Pre-Dialysis) 196/86 mmHg BP Sitting (Post-Dialysis) 131/43 mmHg Concurrent Access: falseAV Graft Upper Arm (Left) Arterial BP Standing (Pre-Dialysis) 194/90 mmHg BP Standing (P ost-Dialysis) 133/63 mmHg Sitting Heart Rate Pre-Dialysis 104 BPM Sitting Heart Rate Post-Dialysis 80 BPM Standing Heart Rate Pre-Dialysis 106 BPM Standing Heart Rate Post-Dialysis 76 BPM Temperature Pre-Dialysis 97.9 degF Temperature Post -Dialysis 97.8 degF October 15, 2023 In-Center Hemodialysis Treatment [id number]:42:57.000Z [id number]:31:57.000Z BP Sitting (Pre-Dialysis) 159/78 mmHg BP Sitting (Post-Dialysis) 130/64 mmHg Concurrent Access: falseAV Graft Upper Arm (Left) Arterial Sitting Heart Rate Pre-Dialysis 104 BPM BP Standing (Post-Dialysis) 126/74 mmHg Temperature Pre-Dialysis 97.8 degF Sitting Heart Ra te Post-Dialysis 73 BPM Standing Heart Rate Post-Renée lysis 78 BPM Temperature Post-Dialysis 97 .6 degF October 13, 2023 In-Center Hemodialysis Treatment 4339-04-99T18:25:00.000Z 2299-81-22W25:28:04.000Z BP Sitting (Pre-Dialysis) 158/80 mmHg BP Sitting (Post-Dialysis) 119/72 mmHg Concurrent Access: falseAV Graft Upper Arm (Left) Arterial BP Standing (Pre-Dialysis) 168/92 mmHg BP Standing (P ost-Dialysis) 118/74 mmHg Sitting Heart Rate Pre-Dialysis 80 BPM Sitting Heart Rate Post-Dialysis 74 BPM Standing Heart Rate Pre-Dialysis 87 BPM Standing Heart Rate Post-Dialysis 75 BPM Temperature Pre-Dialysis 97.8 degF Temperature Post -Dialysis 97.2 degF October 11, 2023 In-Center Hemodialysis Treatment [id number]:23:53.000Z 3784-62-70A38:24:53.000Z BP Sitting (Pre-Dialysis) 127/79 mmHg BP Sitting (Post-Dialysis) 124/87 mmHg Concurrent Access: falseAV Graft Upper Arm (Left) Arterial BP Standing (Pre-Dialysis) 98/68 mmHg BP Standing (P ost-Dialysis) 133/65 mmHg Sitting Heart Rate Pre-Dialysis 92 BPM Sitting Heart Rate Post-Dialysis 78 BPM Standing Heart Rate Pre-Dialysis 63 BPM Standing Heart Rate Post-Dialysis 74 BPM Temperature Pre-Dialysis 97.5 degF Temperature Post -Dialysis 97.8 degF October 09, 2023 In-Center Hemodialysis Treatment 0524-46-98R54:30:53.000Z 2517-97-40L71:33:53.000Z BP Sitting (Pre-Dialysis) 174/71 mmHg BP Sitting (Post-Dialysis) 142/64 mmHg Concurrent Access: falseAV Graft Upper Arm (Left) Arterial BP Standing (Pre-Dialysis) 195/88 mmHg BP Standing (P ost-Dialysis) 149/68 mmHg Sitting Heart Rate Pre-Dialysis 92 BPM Sitting Heart Rate Post-Dialysis 77 BPM Standing Heart Rate Pre-Dialysis 93 BPM Standing Heart Rate Post-Dialysis 83 BPM Temperature Pre-Dialysis 97.2 degF Temperature Post -Dialysis 97.8 degF October 06, 2023 In-Center Hemodialysis Treatment 7387-23-40Z81:24:00.000Z [id number]:31:32.000Z BP Sitting (Pre-Dialysis) 157/57 mmHg BP Sitting (Post-Dialysis) 124/56 mmHg Concurrent Access: falseAV Graft Upper Arm (Left) Arterial BP Standing (Pre-Dialysis) 179/83 mmHg Sitti ng Heart Rate Post-Dialysis 74 BPM Sitting Heart Rate Pre-Dialysis 84 BPM Temperatu re Post-Dialysis 97.8 degF Standing Heart Rate Pre-Dialysis 83 BPM Temperature Pre-Dialysis 97.5 degF October 04, 2023 In-Center Hemodialysis Treatment 7340-56-90F28:25:00.000Z 9319-48-85D15:31:20.000Z BP Sitting (Pre-Dialysis) 168/64 mmHg BP Sitting (Post-Dialysis) 121/66 mmHg Concurrent Access: falseAV Graft Upper Arm (Left) Arterial BP Standing (Pre-Dialysis) 145/71 mmHg BP Standing (P ost-Dialysis) 113/64 mmHg Sitting Heart Rate Pre-Dialysis 87 BPM Sitting Heart Rate Post-Dialysis 77 BPM Standing Heart Rate Pre-Dialysis 87 BPM Standing Heart Rate Post-Dialysis 75 BPM Temperature Pre-Dialysis 97.3 degF Temperature Post -Dialysis 97.8 degF October 02, 2023 In-Center Hemodialysis Treatment 1957-34-91I63:26:00.000Z [id number]:31:14.000Z BP Sitting (Pre-Dialysis) 153/75 mmHg BP Sitting (Post-Dialysis) 135/57 mmHg Concurrent Access: falseAV Graft Upper Arm (Left) Arterial BP Standing (Pre-Dialysis) 160/85 mmHg BP Standing (P ost-Dialysis) 123/68 mmHg Sitting Heart Rate Pre-Dialysis 94 BPM Sitting Heart Rate Post-Dialysis 66 BPM Standing Heart Rate Pre-Dialysis 92 BPM Standing Heart Rate Post-Dialysis 71 BPM Temperature Pre-Dialysis 97.6 degF Temperature Post -Dialysis 97 degF September 29, 2023 In-Center Hemodialysis Treatment [id number]:24:15.000Z 7238-43-19U61:03:14.000Z BP Sitting (Pre-Dialysis) 172/76 mmHg BP Sitting (Post-Dialysis) 120/63 mmHg Concurrent Access: falseAV Graft Upper Arm (Left) Arterial BP Standing (Pre-Dialysis) 198/77 mmHg BP Standing (P ost-Dialysis) 125/42 mmHg Sitting Heart Rate Pre-Dialysis 92 BPM Sitting Heart Rate Post-Dialysis 78 BPM Standing Heart Rate Pre-Dialysis 93 BPM Standing Heart Rate Post-Dialysis 75 BPM Temperature Pre-Dialysis 97.9 degF Temperature Post -Dialysis 97.8 degF September 27, 2023 In-Center Hemodialysis Treatment 4470-71-89F49:24:00.000Z 8423-62-64O42:29:25.000Z BP Sitting (Pre-Dialysis) 161/77 mmHg BP Sitting (Post-Dialysis) 121/52 mmHg Concurrent Access: falseAV Graft Upper Arm (Left) Arterial BP Standing (Pre-Dialysis) 162/69 mmHg Sitti ng Heart Rate Post-Dialysis 77 BPM Sitting Heart Rate Pre-Dialysis 92 BPM Temperatu re Post-Dialysis 97.2 degF Standing Heart Rate Pre-Dialysis 97 BPM Temperature Pre-Dialysis 97.6 degF September 25, 2023 In-Center Hemodialysis Treatment 9745-66-05O01:19:21.000Z 7358-05-96C18:39:20.000Z BP Sitting (Pre-Dialysis) 129/75 mmHg BP Sitting (Post-Dialysis) 130/60 mmHg Concurrent Access: falseAV Graft Upper Arm (Left) Arterial BP Standing (Pre-Dialysis) 142/64 mmHg Sitti ng Heart Rate Post-Dialysis 75 BPM Sitting Heart Rate Pre-Dialysis 93 BPM Temperatu re Post-Dialysis 97.6 degF Standing Heart Rate Pre-Dialysis 92 BPM Temperature Pre-Dialysis 97.6 degF September 22, 2023 In-Center Hemodialysis Treatment [id number]:19:12.000Z 4618-03-50T10:19:11.000Z BP Sitting (Pre-Dialysis) 145/97 mmHg BP Sitting (Post-Dialysis) 189/95 mmHg Concurrent Access: falseAV Graft Upper Arm (Left) Arterial BP Standing (Pre-Dialysis) 133/114 mmHg BP Standing (P ost-Dialysis) 155/73 mmHg Sitting Heart Rate Pre-Dialysis 91 BPM Sitting Heart Rate Post-Dialysis 66 BPM Standing Heart Rate Pre-Dialysis 90 BPM Standing Heart Rate Post-Dialysis 83 BPM Temperature Pre-Dialysis 97.5 degF Temperature Post -Dialysis 97.5 degF September 20, 2023 In-Center Hemodialysis Treatment [id number]:37:00.000Z [id number]:41:18.000Z BP Sitting (Pre-Dialysis) 131/75 mmHg BP Sitting (Post-Dialysis) 125/75 mmHg Concurrent Access: falseAV Graft Upper Arm (Left) Arterial BP Standing (Pre-Dialysis) 150/74 mmHg BP Standing (P ost-Dialysis) 130/73 mmHg Sitting Heart Rate Pre-Dialysis 90 BPM Sitting Heart Rate Post-Dialysis 81 BPM Standing Heart Rate Pre-Dialysis 91 BPM Standing Heart Rate Post-Dialysis 83 BPM Temperature Pre-Dialysis 97.1 degF Temperature Post -Dialysis 97 degF September 18, 2023 In-Center Hemodialysis Treatment [id number]:11:19.000Z 8718-71-22E83:22:19.000Z BP Sitting (Pre-Dialysis) 186/80 mmHg BP Sitting (Post-Dialysis) 159/82 mmHg Concurrent Access: falseAV Graft Upper Arm (Left) Arterial BP Standing (Pre-Dialysis) 198/94 mmHg BP Standing (P ost-Dialysis) 145/51 mmHg Sitting Heart Rate Pre-Dialysis 94 BPM Sitting Heart Rate Post-Dialysis 79 BPM Standing Heart Rate Pre-Dialysis 98 BPM Standing Heart Rate Post-Dialysis 77 BPM Temperature Pre-Dialysis 97.8 degF Temperature Post -Dialysis 97 degF September 15, 2023 In-Center Hemodialysis Treatment [id number]:19:41.000Z 9590-41-97D30:23:41.000Z BP Sitting (Pre-Dialysis) 189/87 mmHg BP Sitting (Post-Dialysis) 139/63 mmHg Concurrent Access: falseAV Graft Upper Arm (Left) Arterial BP Standing (Pre-Dialysis) 195/91 mmHg Sitti ng Heart Rate Post-Dialysis 81 BPM Sitting Heart Rate Pre-Dialysis 90 BPM Temperatu re Post-Dialysis 97.6 degF Standing Heart Rate Pre-Dialysis 92 BPM Temperature Pre-Dialysis 97.3 degF September 12, 2023 In-Center Hemodialysis Treatment [id number]:27:41.000Z 4119-91-11R22:20:41.000Z BP Sitting (Pre-Dialysis) 202/94 mmHg BP Sitting (Post-Dialysis) 121/66 mmHg Concurrent Access: falseAV Graft Upper Arm (Left) Arterial Sitting Heart Rate Pre-Dialysis 104 BPM Sitting H eart Rate Post-Dialysis 75 BPM Temperature Pre-Dialysis 98 degF Temperature Post -Dialysis 97.7 degF September 10, 2023 In-Center Hemodialysis Treatment [id number]:45:00.000Z 1360-04-02O67:31:49.000Z BP Sitting (Pre-Dialysis) 142/108 mmHg BP Sitting (Post-Dialysis) 134/76 mmHg Concurrent Access: falseAV Graft Upper Arm (Left) Arterial BP Standing (Pre-Dialysis) 197/149 mmHg BP Standing (P ost-Dialysis) 142/75 mmHg Sitting Heart Rate Pre-Dialysis 112 BPM Sitting Heart Rate Post-Dialysis 81 BPM Standing Heart Rate Pre-Dialysis 100 BPM Standing Heart Rate Post-Dialysis 80 BPM Temperature Pre-Dialysis 97.6 degF Temperature Post -Dialysis 97.2 degF September 08, 2023 In-Center Hemodialysis Treatment [id number]:23:00.000Z [id number]:28:09.000Z BP Sitting (Pre-Dialysis) 191/73 mmHg BP Sitting (Post-Dialysis) 121/55 mmHg Concurrent Access: falseAV Graft Upper Arm (Left) Arterial Sitting Heart Rate Pre-Dialysis 100 BPM BP Standing (Post-Dialysis) 121/57 mmHg Temperature Pre-Dialysis 97.6 degF Sitting Heart Ra te Post-Dialysis 73 BPM Standing Heart Rate Post-Renée lysis 76 BPM Temperature Post-Dialysis 97 .8 degF September 06, 2023 In-Center Hemodialysis Treatment [id number]:03:00.000Z [id number]:59:58.000Z BP Sitting (Pre-Dialysis) 158/114 mmHg BP Sitting (Post-Dialysis) 119/76 mmHg Concurrent Access: falseAV Graft Upper Arm (Left) Arterial BP Standing (Pre-Dialysis) 175/90 mmHg Sitti ng Heart Rate Post-Dialysis 82 BPM Sitting Heart Rate Pre-Dialysis 113 BPM Temperatu re Post-Dialysis 97.5 degF Standing Heart Rate Pre-Dialysis 108 BPM Temperature Pre-Dialysis 97.3 degF September 04, 2023 In-Center Hemodialysis Treatment [id number]:25:02.000Z [id number]:30:03.000Z BP Sitting (Pre-Dialysis) 198/88 mmHg BP Sitting (Post-Dialysis) 134/62 mmHg Concurrent Access: falseAV Graft Upper Arm (Left) Arterial BP Standing (Pre-Dialysis) 210/98 mmHg Sitti ng Heart Rate Post-Dialysis 97 BPM Sitting Heart Rate Pre-Dialysis 101 BPM Temperatu re Post-Dialysis 97.6 degF Standing Heart Rate Pre-Dialysis 107 BPM Temperature Pre-Dialysis 97.8 degF September 01, 2023 In-Center Hemodialysis Treatment [id number]:22:35.000Z [id number]:34:34.000Z BP Sitting (Pre-Dialysis) 181/82 mmHg BP Sitting (Post-Dialysis) 137/63 mmHg Concurrent Access: falseAV Graft Upper Arm (Left) Arterial BP Standing (Pre-Dialysis) 183/83 mmHg BP Standing (P ost-Dialysis) 139/71 mmHg Sitting Heart Rate Pre-Dialysis 95 BPM Sitting Heart Rate Post-Dialysis 71 BPM Standing Heart Rate Pre-Dialysis 97 BPM Standing Heart Rate Post-Dialysis 79 BPM Temperature Pre-Dialysis 97.5 degF Temperature Post -Dialysis 97.8 degF August 30, 2023 In-Center Hemodialysis Treatment [id number]:24:35.000Z 4592-77-58Q44:29:34.000Z BP Sitting (Pre-Dialysis) 159/80 mmHg BP Sitting (Post-Dialysis) 135/74 mmHg Concurrent Access: falseAV Graft Upper Arm (Left) Arterial Sitting Heart Rate Pre-Dialysis 98 BPM Sitting H eart Rate Post-Dialysis 78 BPM Temperature Pre-Dialysis 97.8 degF Temperature Post -Dialysis 97.8 degF August 28, 2023 In-Center Hemodialysis Treatment [id number]:27:00.000Z [id number]:32:35.000Z BP Sitting (Pre-Dialysis) 170/64 mmHg BP Sitting (Post-Dialysis) 134/65 mmHg Concurrent Access: falseAV Graft Upper Arm (Left) Arterial BP Standing (Pre-Dialysis) 186/86 mmHg BP Standing (P ost-Dialysis) 129/64 mmHg Sitting Heart Rate Pre-Dialysis 95 BPM Sitting Heart Rate Post-Dialysis 80 BPM Standing Heart Rate Pre-Dialysis 96 BPM Standing Heart Rate Post-Dialysis 78 BPM Temperature Pre-Dialysis 97.3 degF Temperature Post -Dialysis 97.5 degF August 25, 2023 In-Center Hemodialysis Treatment [id number]:32:00.000Z [id number]:37:31.000Z BP Sitting (Pre-Dialysis) 189/71 mmHg BP Sitting (Post-Dialysis) 142/72 mmHg Concurrent Access: falseAV Graft Upper Arm (Left) Arterial BP Standing (Pre-Dialysis) 198/83 mmHg BP Standing (P ost-Dialysis) 132/68 mmHg Sitting Heart Rate Pre-Dialysis 98 BPM Sitting Heart Rate Post-Dialysis 81 BPM Standing Heart Rate Pre-Dialysis 100 BPM Standing Heart Rate Post-Dialysis 85 BPM Temperature Pre-Dialysis 97.9 degF Temperature Post -Dialysis 97.8 degF August 23, 2023 In-Center Hemodialysis Treatment [id number]:19:27.000Z [id number]:36:27.000Z BP Sitting (Pre-Dialysis) 172/78 mmHg BP Sitting (Post-Dialysis) 134/76 mmHg Concurrent Access: falseAV Graft Upper Arm (Left) Arterial BP Standing (Pre-Dialysis) 156/88 mmHg Sitti ng Heart Rate Post-Dialysis 79 BPM Sitting Heart Rate Pre-Dialysis 99 BPM Temperatu re Post-Dialysis 97.8 degF Standing Heart Rate Pre-Dialysis 99 BPM Temperature Pre-Dialysis 97.3 degF August 21, 2023 In-Center Hemodialysis Treatment [id number]:37:31.000Z [id number]:42:31.000Z BP Sitting (Pre-Dialysis) 194/86 mmHg BP Sitting (Post-Dialysis) 153/79 mmHg Concurrent Access: falseAV Graft Upper Arm (Left) Arterial Sitting Heart Rate Pre-Dialysis 94 BPM Sitting H eart Rate Post-Dialysis 78 BPM Temperature Pre-Dialysis 97.9 degF Temperature Post -Dialysis 97.8 degF August 18, 2023 In-Center Hemodialysis Treatment [id number]:13:57.000Z [id number]:15:56.000Z BP Sitting (Pre-Dialysis) 177/86 mmHg BP Sitting (Post-Dialysis) 126/71 mmHg Concurrent Access: falseAV Graft Upper Arm (Left) Arterial BP Standing (Pre-Dialysis) 197/81 mmHg BP Standing (P ost-Dialysis) 141/71 mmHg Sitting Heart Rate Pre-Dialysis 96 BPM Sitting Heart Rate Post-Dialysis 78 BPM Standing Heart Rate Pre-Dialysis 97 BPM Standing Heart Rate Post-Dialysis 78 BPM Temperature Pre-Dialysis 97.1 degF Temperature Post -Dialysis 97.1 degF August 16, 2023 In-Center Hemodialysis Treatment [id number]:27:00.000Z [id number]:34:56.000Z BP Sitting (Pre-Dialysis) 214/94 mmHg BP Sitting (Post-Dialysis) 152/74 mmHg Concurrent Access: falseAV Graft Upper Arm (Left) Arterial BP Standing (Pre-Dialysis) 192/83 mmHg BP Standing (P ost-Dialysis) 144/68 mmHg Sitting Heart Rate Pre-Dialysis 100 BPM Sitting Heart Rate Post-Dialysis 78 BPM Standing Heart Rate Pre-Dialysis 96 BPM Standing Heart Rate Post-Dialysis 76 BPM Temperature Pre-Dialysis 97.9 degF Temperature Post -Dialysis 97.8 degF August 14, 2023 In-Center Hemodialysis Treatment [id number]:22:57.000Z [id number]:28:56.000Z BP Sitting (Pre-Dialysis) 199/93 mmHg BP Sitting (Post-Dialysis) 129/66 mmHg Concurrent Access: falseAV Graft Upper Arm (Left) Arterial BP Standing (Pre-Dialysis) 207/89 mmHg BP Standing (P ost-Dialysis) 119/63 mmHg Sitting Heart Rate Pre-Dialysis 96 BPM Sitting Heart Rate Post-Dialysis 81 BPM Standing Heart Rate Pre-Dialysis 96 BPM Standing Heart Rate Post-Dialysis 84 BPM Temperature Pre-Dialysis 97.3 degF Temperature Post -Dialysis 97.8 degF August 11, 2023 In-Center Hemodialysis Treatment [id number]:14:27.000Z [id number]:19:26.000Z BP Sitting (Pre-Dialysis) 180/85 mmHg BP Sitting (Post-Dialysis) 153/74 mmHg Concurrent Access: falseAV Graft Upper Arm (Left) Arterial Sitting Heart Rate Pre-Dialysis 95 BPM Sitting H eart Rate Post-Dialysis 78 BPM Temperature Pre-Dialysis 97 degF Temperature Post -Dialysis 97 degF August 09, 2023 In-Center Hemodialysis Treatment [id number]:19:27.000Z [id number]:19:26.000Z BP Sitting (Pre-Dialysis) 189/86 mmHg BP Sitting (Post-Dialysis) 159/70 mmHg Concurrent Access: falseAV Graft Upper Arm (Left) Arterial BP Standing (Pre-Dialysis) 182/89 mmHg Sitting Heart Rate Post-Dialysis 82 BPM Sitting Heart Rate Pre-Dialysis 92 BPM Standing Heart Rate Pre-Dialysis 84 BPM Temperature Pre-Dialysis 97.2 degF August 07, 2023 In-Center Hemodialysis Treatment [id number]:24:26.000Z 2217-51-65Z97:31:26.000Z BP Sitting (Pre-Dialysis) 202/99 mmHg BP Sitting (Post-Dialysis) 154/77 mmHg Concurrent Access: falseAV Graft Upper Arm (Left) Arterial BP Standing (Pre-Dialysis) 211/101 mmHg BP Standing (P ost-Dialysis) 152/67 mmHg Sitting Heart Rate Pre-Dialysis 104 BPM Sitting Heart Rate Post-Dialysis 87 BPM Standing Heart Rate Pre-Dialysis 107 BPM Standing Heart Rate Post-Dialysis 82 BPM Temperature Pre-Dialysis 97.7 degF Temperature Post -Dialysis 97.8 degF August 04, 2023 In-Center Hemodialysis Treatment [id number]:26:00.000Z [id number]:39:28.000Z BP Sitting (Pre-Dialysis) 192/102 mmHg BP Sitting (Post-Dialysis) 144/75 mmHg Concurrent Access: falseAV Graft Upper Arm (Left) Arterial BP Standing (Pre-Dialysis) 222/95 mmHg BP Standing (P ost-Dialysis) 152/60 mmHg Sitting Heart Rate Pre-Dialysis 114 BPM Sitting Heart Rate Post-Dialysis 85 BPM Standing Heart Rate Pre-Dialysis 117 BPM Standing Heart Rate Post-Dialysis 85 BPM Temperature Pre-Dialysis 97.7 degF Temperature Post -Dialysis 97.8 degF August 02, 2023 In-Center Hemodialysis Treatment [id number]:25:00.000Z 6799-27-23Z20:28:28.000Z BP Sitting (Pre-Dialysis) 157/78 mmHg BP Sitting (Post-Dialysis) 123/62 mmHg Concurrent Access: falseAV Graft Upper Arm (Left) Arterial BP Standing (Pre-Dialysis) 210/93 mmHg BP Standing (P ost-Dialysis) 139/71 mmHg Sitting Heart Rate Pre-Dialysis 87 BPM Sitting Heart Rate Post-Dialysis 85 BPM Standing Heart Rate Pre-Dialysis 104 BPM Standing Heart Rate Post-Dialysis 85 BPM Temperature Pre-Dialysis 97.8 degF Temperature Post -Dialysis 97.6 degF July 31, 2023 In-Center Hemodialysis Treatment [id number]:19:00.000Z [id number]:26:28.000Z BP Sitting (Pre-Dialysis) 206/100 mmHg BP Sitting (Post-Dialysis) 171/82 mmHg Concurrent Access: falseAV Graft Upper Arm (Left) Arterial BP Standing (Pre-Dialysis) 193/101 mmHg BP Standing (P ost-Dialysis) 149/77 mmHg Sitting Heart Rate Pre-Dialysis 103 BPM Sitting Heart Rate Post-Dialysis 94 BPM Standing Heart Rate Pre-Dialysis 106 BPM Standing Heart Rate Post-Dialysis 90 BPM Temperature Pre-Dialysis 97.9 degF Temperature Post -Dialysis 97.8 degF July 28, 2023 In-Center Hemodialysis Treatment [id number]:04:08.000Z [id number]:35:07.000Z BP Sitting (Pre-Dialysis) 152/91 mmHg BP Sitting (Post-Dialysis) 134/67 mmHg Concurrent Access: falseAV Graft Upper Arm (Left) Arterial BP Standing (Pre-Dialysis) 172/89 mmHg BP Standing (P ost-Dialysis) 148/82 mmHg Sitting Heart Rate Pre-Dialysis 92 BPM Sitting Heart Rate Post-Dialysis 88 BPM Standing Heart Rate Pre-Dialysis 95 BPM Standing Heart Rate Post-Dialysis 68 BPM Temperature Pre-Dialysis 97.8 degF Temperature Post -Dialysis 97.6 degF July 26, 2023 In-Center Hemodialysis Treatment [id number]:30:00.000Z [id number]:34:27.000Z BP Sitting (Pre-Dialysis) 175/86 mmHg BP Sitting (Post-Dialysis) 143/75 mmHg Concurrent Access: falseAV Graft Upper Arm (Left) Arterial BP Standing (Pre-Dialysis) 180/85 mmHg BP Standing (P ost-Dialysis) 134/67 mmHg Sitting Heart Rate Pre-Dialysis 98 BPM Sitting Heart Rate Post-Dialysis 89 BPM Standing Heart Rate Pre-Dialysis 100 BPM Standing Heart Rate Post-Dialysis 84 BPM Temperature Pre-Dialysis 97.9 degF Temperature Post -Dialysis 97.7 degF July 24, 2023 In-Center Hemodialysis Treatment 6918-55-08F71:30:00.000Z [id number]:30:27.000Z BP Sitting (Pre-Dialysis) 171/75 mmHg BP Sitting (Post-Dialysis) 117/61 mmHg Concurrent Access: falseAV Graft Upper Arm (Left) Arterial BP Standing (Pre-Dialysis) 192/85 mmHg Sitti ng Heart Rate Post-Dialysis 82 BPM Sitting Heart Rate Pre-Dialysis 90 BPM Temperatu re Post-Dialysis 97.8 degF Standing Heart Rate Pre-Dialysis 96 BPM Temperature Pre-Dialysis 97.8 degF July 21, 2023 In-Center Hemodialysis Treatment 8428-01-44G16:20:21.000Z [id number]:22:21.000Z BP Sitting (Pre-Dialysis) 182/82 mmHg BP Sitting (Post-Dialysis) 155/81 mmHg Concurrent Access: falseAV Graft Upper Arm (Left) Arterial Sitting Heart Rate Pre-Dialysis 109 BPM Sitting H eart Rate Post-Dialysis 80 BPM Temperature Pre-Dialysis 97.9 degF Temperature Post -Dialysis 97.3 degF July 19, 2023 In-Center Hemodialysis Treatment 2470-90-41Y93:12:00.000Z [id number]:19:33.000Z BP Sitting (Pre-Dialysis) 174/80 mmHg BP Sitting (Post-Dialysis) 136/48 mmHg Concurrent Access: falseAV Graft Upper Arm (Left) Arterial BP Standing (Pre-Dialysis) 147/119 mmHg Sitti ng Heart Rate Post-Dialysis 81 BPM Sitting Heart Rate Pre-Dialysis 103 BPM Temperatu re Post-Dialysis 97.4 degF Standing Heart Rate Pre-Dialysis 87 BPM Temperature Pre-Dialysis 97.3 degF July 17, 2023 In-Center Hemodialysis Treatment [id number]:31:00.000Z 6995-27-24V71:32:20.000Z BP Sitting (Pre-Dialysis) 188/72 mmHg BP Sitting (Post-Dialysis) 113/55 mmHg Concurrent Access: falseAV Graft Upper Arm (Left) Arterial BP Standing (Pre-Dialysis) 151/73 mmHg BP Standing (P ost-Dialysis) 117/65 mmHg Sitting Heart Rate Pre-Dialysis 102 BPM Sitting Heart Rate Post-Dialysis 79 BPM Standing Heart Rate Pre-Dialysis 96 BPM Standing Heart Rate Post-Dialysis 95 BPM Temperature Pre-Dialysis 97.3 degF Temperature Post -Dialysis 97.6 degF July 14, 2023 In-Center Hemodialysis Treatment [id number]:24:00.000Z [id number]:27:01.000Z BP Sitting (Pre-Dialysis) 172/90 mmHg BP Sitting (Post-Dialysis) 126/48 mmHg Concurrent Access: falseAV Graft Upper Arm (Left) Arterial BP Standing (Pre-Dialysis) 197/94 mmHg BP Standing (P ost-Dialysis) 152/69 mmHg Sitting Heart Rate Pre-Dialysis 94 BPM Sitting Heart Rate Post-Dialysis 91 BPM Standing Heart Rate Pre-Dialysis 98 BPM Standing Heart Rate Post-Dialysis 71 BPM Temperature Pre-Dialysis 97 degF Temperature Post -Dialysis 97.6 degF July 12, 2023 In-Center Hemodialysis Treatment [id number]:22:00.000Z [id number]:21:12.000Z BP Sitting (Pre-Dialysis) 147/93 mmHg BP Sitting (Post-Dialysis) 136/71 mmHg Concurrent Access: falseAV Graft Upper Arm (Left) Arterial BP Standing (Pre-Dialysis) 192/94 mmHg BP Standing (P ost-Dialysis) 145/88 mmHg Sitting Heart Rate Pre-Dialysis 105 BPM Sitting Heart Rate Post-Dialysis 82 BPM Standing Heart Rate Pre-Dialysis 99 BPM Standing Heart Rate Post-Dialysis 83 BPM Temperature Pre-Dialysis 97.6 degF Temperature Post -Dialysis 97.7 degF July 10, 2023 In-Center Hemodialysis Treatment [id number]:20:00.000Z [id number]:31:41.000Z BP Sitting (Pre-Dialysis) 185/81 mmHg BP Sitting (Post-Dialysis) 143/74 mmHg Concurrent Access: falseAV Graft Upper Arm (Left) Arterial BP Standing (Pre-Dialysis) 205/91 mmHg BP Standing (P ost-Dialysis) 132/68 mmHg Sitting Heart Rate Pre-Dialysis 94 BPM Sitting Heart Rate Post-Dialysis 69 BPM Standing Heart Rate Pre-Dialysis 97 BPM Standing Heart Rate Post-Dialysis 71 BPM Temperature Pre-Dialysis 97.4 degF Temperature Post -Dialysis 97.4 degF July 07, 2023 In-Center Hemodialysis Treatment 8900-75-83Q66:17:00.000Z 5072-93-22F51:20:21.000Z BP Sitting (Pre-Dialysis) 185/81 mmHg BP Sitting (Post-Dialysis) 132/71 mmHg Concurrent Access: falseAV Graft Upper Arm (Left) Arterial BP Standing (Pre-Dialysis) 185/81 mmHg BP Standing (P ost-Dialysis) 139/71 mmHg Sitting Heart Rate Pre-Dialysis 96 BPM Sitting Heart Rate Post-Dialysis 89 BPM Standing Heart Rate Pre-Dialysis 98 BPM Standing Heart Rate Post-Dialysis 83 BPM Temperature Pre-Dialysis 97.7 degF Temperature Post -Dialysis 97 degF July 05, 2023 In-Center Hemodialysis Treatment 9588-67-71G72:31:00.000Z 9833-70-45Y51:32:10.000Z BP Sitting (Pre-Dialysis) 177/94 mmHg BP Sitting (Post-Dialysis) 109/61 mmHg Concurrent Access: falseAV Graft Upper Arm (Left) Arterial BP Standing (Pre-Dialysis) 213/85 mmHg BP Standing (P ost-Dialysis) 120/57 mmHg Sitting Heart Rate Pre-Dialysis 84 BPM Sitting Heart Rate Post-Dialysis 83 BPM Standing Heart Rate Pre-Dialysis 95 BPM Standing Heart Rate Post-Dialysis 70 BPM Temperature Pre-Dialysis 97.5 degF Temperature Post -Dialysis 97.8 degF July 03, 2023 In-Center Hemodialysis Treatment 5736-46-44I92:28:01.000Z 3710-66-88P64:30:02.000Z BP Sitting (Pre-Dialysis) 187/78 mmHg BP Sitting (Post-Dialysis) 131/68 mmHg Concurrent Access: falseAV Graft Upper Arm (Left) Arterial BP Standing (Pre-Dialysis) 198/91 mmHg BP Standing (P ost-Dialysis) 130/62 mmHg Sitting Heart Rate Pre-Dialysis 101 BPM Sitting Heart Rate Post-Dialysis 78 BPM Standing Heart Rate Pre-Dialysis 102 BPM Standing Heart Rate Post-Dialysis 81 BPM Temperature Pre-Dialysis 97.3 degF Temperature Post -Dialysis 97.5 degF June 30, 2023 In-Center Hemodialysis Treatment 6542-36-48C60:32:00.000Z 8226-80-52D85:35:12.000Z BP Sitting (Pre-Dialysis) 177/80 mmHg BP Sitting (Post-Dialysis) 142/74 mmHg Concurrent Access: falseAV Graft Upper Arm (Left) Arterial Sitting Heart Rate Pre-Dialysis 92 BPM BP Standing (Post-Dialysis) 146/77 mmHg Temperature Pre-Dialysis 97.7 degF Sitting Heart Ra te Post-Dialysis 76 BPM Standing Heart Rate Post-Renée lysis 76 BPM Temperature Post-Dialysis 97 .8 degF June 28, 2023 In-Center Hemodialysis Treatment [id number]:28:00.000Z 1667-47-73R75:34:34.000Z BP Sitting (Pre-Dialysis) 146/84 mmHg BP Sitting (Post-Dialysis) 145/69 mmHg Concurrent Access: falseAV Graft Upper Arm (Left) Arterial BP Standing (Pre-Dialysis) 160/79 mmHg BP Standing (P ost-Dialysis) 139/62 mmHg Sitting Heart Rate Pre-Dialysis 90 BPM Sitting Heart Rate Post-Dialysis 82 BPM Standing Heart Rate Pre-Dialysis 86 BPM Standing Heart Rate Post-Dialysis 81 BPM Temperature Pre-Dialysis 97.8 degF Temperature Post -Dialysis 97.6 degF June 26, 2023 In-Center Hemodialysis Treatment 7249-06-10W23:28:00.000Z 3060-84-28K03:36:49.000Z BP Sitting (Pre-Dialysis) 170/75 mmHg BP Sitting (Post-Dialysis) 117/63 mmHg Concurrent Access: falseAV Graft Upper Arm (Left) Arterial BP Standing (Pre-Dialysis) 186/79 mmHg Sitti ng Heart Rate Post-Dialysis 77 BPM Sitting Heart Rate Pre-Dialysis 107 BPM Temperatu re Post-Dialysis 97.2 degF Standing Heart Rate Pre-Dialysis 110 BPM Temperature Pre-Dialysis 97 degF June 23, 2023 In-Center Hemodialysis Treatment [id number]:13:36.000Z 9274-20-50V22:16:35.000Z BP Sitting (Pre-Dialysis) 180/90 mmHg BP Sitting (Post-Dialysis) 137/71 mmHg Concurrent Access: falseAV Graft Upper Arm (Left) Arterial Sitting Heart Rate Pre-Dialysis 83 BPM Sitting H eart Rate Post-Dialysis 88 BPM Temperature Pre-Dialysis 97.8 degF Temperature Post -Dialysis 97 degF June 21, 2023 In-Center Hemodialysis Treatment [id number]:21:36.000Z 9851-83-79V87:28:35.000Z BP Sitting (Pre-Dialysis) 164/81 mmHg BP Sitting (Post-Dialysis) 117/57 mmHg Concurrent Access: falseAV Graft Upper Arm (Left) Arterial BP Standing (Pre-Dialysis) 166/77 mmHg Sitti ng Heart Rate Post-Dialysis 83 BPM Sitting Heart Rate Pre-Dialysis 95 BPM Temperatu re Post-Dialysis 97.9 degF Standing Heart Rate Pre-Dialysis 94 BPM Temperature Pre-Dialysis 97.9 degF June 19, 2023 In-Center Hemodialysis Treatment [id number]:21:38.000Z 2174-48-72O13:32:38.000Z BP Sitting (Pre-Dialysis) 188/92 mmHg BP Sitting (Post-Dialysis) 171/82 mmHg Concurrent Access: falseAV Graft Upper Arm (Left) Arterial BP Standing (Pre-Dialysis) 197/93 mmHg BP Standing (P ost-Dialysis) 158/66 mmHg Sitting Heart Rate Pre-Dialysis 101 BPM Sitting Heart Rate Post-Dialysis 74 BPM Standing Heart Rate Pre-Dialysis 99 BPM Standing Heart Rate Post-Dialysis 84 BPM Temperature Pre-Dialysis 97.8 degF Temperature Post -Dialysis 97.6 degF June 16, 2023 In-Center Hemodialysis Treatment [id number]:24:08.000Z 6242-69-80R49:25:08.000Z BP Sitting (Pre-Dialysis) 176/95 mmHg BP Sitting (Post-Dialysis) 140/79 mmHg Concurrent Access: falseAV Graft Upper Arm (Left) Arterial BP Standing (Pre-Dialysis) 188/111 mmHg BP Standing (P ost-Dialysis) 143/68 mmHg Sitting Heart Rate Pre-Dialysis 102 BPM Sitting Heart Rate Post-Dialysis 81 BPM Standing Heart Rate Pre-Dialysis 104 BPM Standing Heart Rate Post-Dialysis 79 BPM Temperature Pre-Dialysis 97.5 degF Temperature Post -Dialysis 97.7 degF June 14, 2023 In-Center Hemodialysis Treatment [id number]:32:00.000Z 6145-08-69Z45:36:25.000Z BP Sitting (Pre-Dialysis) 177/82 mmHg BP Sitting (Post-Dialysis) 160/78 mmHg Concurrent Access: falseAV Graft Upper Arm (Left) Arterial BP Standing (Pre-Dialysis) 180/83 mmHg BP Standing (P ost-Dialysis) 145/75 mmHg Sitting Heart Rate Pre-Dialysis 90 BPM Sitting Heart Rate Post-Dialysis 75 BPM Standing Heart Rate Pre-Dialysis 93 BPM Standing Heart Rate Post-Dialysis 82 BPM Temperature Pre-Dialysis 97.3 degF Temperature Post -Dialysis 97.1 degF June 12, 2023 In-Center Hemodialysis Treatment [id number]:21:00.000Z 5826-60-98F35:23:43.000Z BP Sitting (Pre-Dialysis) 149/75 mmHg BP Sitting (Post-Dialysis) 144/78 mmHg Concurrent Access: falseAV Graft Upper Arm (Left) Arterial BP Standing (Pre-Dialysis) 167/82 mmHg BP Standing (P ost-Dialysis) 177/71 mmHg Sitting Heart Rate Pre-Dialysis 98 BPM Sitting Heart Rate Post-Dialysis 81 BPM Standing Heart Rate Pre-Dialysis 99 BPM Standing Heart Rate Post-Dialysis 80 BPM Temperature Pre-Dialysis 97.4 degF Temperature Post -Dialysis 97.5 degF June 09, 2023 In-Center Hemodialysis Treatment [id number]:24:12.000Z 7848-81-85I83:28:12.000Z BP Sitting (Pre-Dialysis) 166/103 mmHg BP Sitting (Post-Dialysis) 132/75 mmHg Concurrent Access: falseAV Graft Upper Arm (Left) Arterial Sitting Heart Rate Pre-Dialysis 106 BPM Sitting H eart Rate Post-Dialysis 71 BPM Temperature Pre-Dialysis 97.6 degF Temperature Post -Dialysis 97.3 degF June 07, 2023 In-Center Hemodialysis Treatment [id number]:56:00.000Z 7666-44-40F17:53:26.000Z BP Sitting (Pre-Dialysis) 209/90 mmHg BP Sitting (Post-Dialysis) 137/78 mmHg Concurrent Access: falseAV Graft Upper Arm (Left) Arterial BP Standing (Pre-Dialysis) 218/101 mmHg BP Standing (P ost-Dialysis) 128/80 mmHg Sitting Heart Rate Pre-Dialysis 107 BPM Sitting Heart Rate Post-Dialysis 84 BPM Standing Heart Rate Pre-Dialysis 111 BPM Standing Heart Rate Post-Dialysis 68 BPM Temperature Pre-Dialysis 97 degF Temperature Post -Dialysis 97.6 degF June 05, 2023 In-Center Hemodialysis Treatment 3980-16-85K43:11:07.000Z 1847-43-05Y59:33:07.000Z BP Sitting (Pre-Dialysis) 184/64 mmHg BP Sitting (Post-Dialysis) 150/75 mmHg Concurrent Access: falseAV Graft Upper Arm (Left) Arterial BP Standing (Pre-Dialysis) 213/91 mmHg BP Standing (P ost-Dialysis) 155/73 mmHg Sitting Heart Rate Pre-Dialysis 108 BPM Sitting Heart Rate Post-Dialysis 84 BPM Standing Heart Rate Pre-Dialysis 111 BPM Standing Heart Rate Post-Dialysis 84 BPM Temperature Pre-Dialysis 97.3 degF Temperature Post -Dialysis 97.4 degF June 02, 2023 In-Center Hemodialysis Treatment [id number]:18:00.000Z [id number]:19:21.000Z BP Sitting (Pre-Dialysis) 198/94 mmHg BP Sitting (Post-Dialysis) 146/73 mmHg Concurrent Access: falseAV Graft Upper Arm (Left) Arterial Sitting Heart Rate Pre-Dialysis 111 BPM Sitting H eart Rate Post-Dialysis 79 BPM Temperature Pre-Dialysis 96.8 degF Temperature Post -Dialysis 97.6 degF May 31, 2023 In-Center Hemodialysis Treatment 3660-67-25R04:11:00.000Z 8550-45-78P90:13:21.000Z BP Sitting (Pre-Dialysis) 169/78 mmHg BP Sitting (Post-Dialysis) 189/85 mmHg Concurrent Access: falseAV Graft Upper Arm (Left) Arterial BP Standing (Pre-Dialysis) 203/97 mmHg Sitting Heart Rate Post-Dialysis 76 BPM Sitting Heart Rate Pre-Dialysis 104 BPM Standing Heart Rate Pre-Dialysis 104 BPM Temperature Pre-Dialysis 97.8 degF May 29, 2023 In-Center Hemodialysis Treatment 4318-68-93O46:25:00.000Z 3096-61-70R65:29:01.000Z BP Sitting (Pre-Dialysis) 186/91 mmHg BP Sitting (Post-Dialysis) 157/81 mmHg Concurrent Access: falseAV Graft Upper Arm (Left) Arterial BP Standing (Pre-Dialysis) 195/86 mmHg Sitting Heart Rate Post-Dialysis 76 BPM Sitting Heart Rate Pre-Dialysis 102 BPM Standing Heart Rate Pre-Dialysis 104 BPM Temperature Pre-Dialysis 97 degF May 26, 2023 In-Center Hemodialysis Treatment 1953-73-58V93:25:00.000Z 2835-14-26O59:24:47.000Z BP Sitting (Pre-Dialysis) 189/95 mmHg BP Sitting (Post-Dialysis) 167/88 mmHg Concurrent Access: falseAV Graft Upper Arm (Left) Arterial BP Standing (Pre-Dialysis) 222/89 mmHg BP Standing (P ost-Dialysis) 164/82 mmHg Sitting Heart Rate Pre-Dialysis 98 BPM Sitting Heart Rate Post-Dialysis 75 BPM Standing Heart Rate Pre-Dialysis 101 BPM Standing Heart Rate Post-Dialysis 75 BPM Temperature Pre-Dialysis 97 degF Temperature Post -Dialysis 97.3 degF May 24, 2023 In-Center Hemodialysis Treatment 2742-48-11N06:27:06.000Z [id number]:36:05.000Z BP Sitting (Pre-Dialysis) 135/71 mmHg BP Sitting (Post-Dialysis) 156/67 mmHg Concurrent Access: falseAV Graft Upper Arm (Left) Arterial BP Standing (Pre-Dialysis) 141/81 mmHg BP Standing (P ost-Dialysis) 160/72 mmHg Sitting Heart Rate Pre-Dialysis 89 BPM Sitting Heart Rate Post-Dialysis 85 BPM Standing Heart Rate Pre-Dialysis 107 BPM Standing Heart Rate Post-Dialysis 83 BPM Temperature Pre-Dialysis 97 degF Temperature Post -Dialysis 97.6 degF May 22, 2023 In-Center Hemodialysis Treatment [id number]:25:35.000Z 5688-10-88H98:28:35.000Z BP Sitting (Pre-Dialysis) 167/87 mmHg BP Sitting (Post-Dialysis) 138/68 mmHg Concurrent Access: falseAV Graft Upper Arm (Left) Arterial BP Standing (Pre-Dialysis) 215/102 mmHg BP Standing (P ost-Dialysis) 153/73 mmHg Sitting Heart Rate Pre-Dialysis 99 BPM Sitting Heart Rate Post-Dialysis 76 BPM Standing Heart Rate Pre-Dialysis 104 BPM Standing Heart Rate Post-Dialysis 77 BPM Temperature Pre-Dialysis 97 degF Temperature Post -Dialysis 97.6 degF May 19, 2023 In-Center Hemodialysis Treatment [id number]:29:00.000Z 7414-72-22D41:31:44.000Z BP Sitting (Pre-Dialysis) 178/77 mmHg BP Sitting (Post-Dialysis) 143/69 mmHg Concurrent Access: falseAV Graft Upper Arm (Left) Arterial BP Standing (Pre-Dialysis) 203/96 mmHg BP Standing (P ost-Dialysis) 163/74 mmHg Sitting Heart Rate Pre-Dialysis 98 BPM Sitting Heart Rate Post-Dialysis 83 BPM Standing Heart Rate Pre-Dialysis 103 BPM Standing Heart Rate Post-Dialysis 81 BPM Temperature Pre-Dialysis 98 degF Temperature Post -Dialysis 97.6 degF May 17, 2023 In-Center Hemodialysis Treatment [id number]:01:00.000Z [id number]:00:37.000Z BP Sitting (Pre-Dialysis) 161/90 mmHg BP Sitting (Post-Dialysis) 139/70 mmHg Concurrent Access: falseAV Graft Upper Arm (Left) Arterial BP Standing (Pre-Dialysis) 183/82 mmHg Sitti ng Heart Rate Post-Dialysis 75 BPM Sitting Heart Rate Pre-Dialysis 107 BPM Temperatu re Post-Dialysis 97.5 degF Standing Heart Rate Pre-Dialysis 115 BPM Temperature Pre-Dialysis 97.9 degF May 15, 2023 In-Center Hemodialysis Treatment [id number]:27:00.000Z 5247-75-43E01:28:36.000Z BP Sitting (Pre-Dialysis) 204/83 mmHg BP Sitting (Post-Dialysis) 132/64 mmHg Concurrent Access: falseAV Graft Upper Arm (Left) Arterial BP Standing (Pre-Dialysis) 198/72 mmHg BP Standing (P ost-Dialysis) 128/73 mmHg Sitting Heart Rate Pre-Dialysis 112 BPM Sitting Heart Rate Post-Dialysis 79 BPM Standing Heart Rate Pre-Dialysis 110 BPM Standing Heart Rate Post-Dialysis 80 BPM Temperature Pre-Dialysis 97.9 degF Temperature Post -Dialysis 97.8 degF May 12, 2023 In-Center Hemodialysis Treatment [id number]:36:00.000Z 3889-89-58H30:35:33.000Z BP Sitting (Pre-Dialysis) 180/101 mmHg BP Sitting (Post-Dialysis) 155/74 mmHg Concurrent Access: falseAV Graft Upper Arm (Left) Arterial BP Standing (Pre-Dialysis) 180/86 mmHg BP Standing (P ost-Dialysis) 148/61 mmHg Sitting Heart Rate Pre-Dialysis 120 BPM Sitting Heart Rate Post-Dialysis 83 BPM Standing Heart Rate Pre-Dialysis 107 BPM Standing Heart Rate Post-Dialysis 92 BPM Temperature Pre-Dialysis 97.8 degF Temperature Post -Dialysis 97.8 degF May 10, 2023 In-Center Hemodialysis Treatment [id number]:17:00.000Z [id number]:21:25.000Z BP Sitting (Pre-Dialysis) 170/82 mmHg BP Sitting (Post-Dialysis) 160/66 mmHg Concurrent Access: falseAV Graft Upper Arm (Left) Arterial BP Standing (Pre-Dialysis) 191/81 mmHg BP Standing (P ost-Dialysis) 150/64 mmHg Sitting Heart Rate Pre-Dialysis 106 BPM Sitting Heart Rate Post-Dialysis 83 BPM Standing Heart Rate Pre-Dialysis 109 BPM Standing Heart Rate Post-Dialysis 87 BPM Temperature Pre-Dialysis 97.9 degF Temperature Post -Dialysis 97.6 degF May 08, 2023 In-Center Hemodialysis Treatment [id number]:24:00.000Z 5377-55-24V81:29:24.000Z BP Sitting (Pre-Dialysis) 178/80 mmHg BP Sitting (Post-Dialysis) 132/66 mmHg Concurrent Access: falseAV Graft Upper Arm (Left) Arterial BP Standing (Pre-Dialysis) 191/82 mmHg Sitti ng Heart Rate Post-Dialysis 84 BPM Sitting Heart Rate Pre-Dialysis 102 BPM Temperatu re Post-Dialysis 97.6 degF Standing Heart Rate Pre-Dialysis 104 BPM Temperature Pre-Dialysis 97.8 degF May 05, 2023 In-Center Hemodialysis Treatment [id number]:14:00.000Z 5277-34-64P68:24:23.000Z BP Sitting (Pre-Dialysis) 186/77 mmHg BP Sitting (Post-Dialysis) 160/73 mmHg Concurrent Access: falseAV Graft Upper Arm (Left) Arterial BP Standing (Pre-Dialysis) 199/84 mmHg BP Standing (P ost-Dialysis) 150/75 mmHg Sitting Heart Rate Pre-Dialysis 109 BPM Sitting Heart Rate Post-Dialysis 85 BPM Standing Heart Rate Pre-Dialysis 111 BPM Standing Heart Rate Post-Dialysis 88 BPM Temperature Pre-Dialysis 97.7 degF Temperature Post -Dialysis 97.7 degF May 03, 2023 In-Center Hemodialysis Treatment [id number]:25:00.000Z 7576-83-29B91:31:34.000Z BP Sitting (Pre-Dialysis) 155/85 mmHg BP Sitting (Post-Dialysis) 117/64 mmHg Concurrent Access: falseAV Graft Upper Arm (Left) Arterial BP Standing (Pre-Dialysis) 190/77 mmHg BP Standing (P ost-Dialysis) 161/85 mmHg Sitting Heart Rate Pre-Dialysis 104 BPM Sitting Heart Rate Post-Dialysis 76 BPM Standing Heart Rate Pre-Dialysis 105 BPM Standing Heart Rate Post-Dialysis 93 BPM Temperature Pre-Dialysis 97.6 degF Temperature Post -Dialysis 97.3 degF May 01, 2023 In-Center Hemodialysis Treatment [id number]:08:00.000Z 4058-14-08B64:08:00.000Z BP Sitting (Pre-Dialysis) 182/80 mmHg BP Sitting (Post-Dialysis) 127/73 mmHg Concurrent Access: falseAV Graft Upper Arm (Left) Arterial BP Standing (Pre-Dialysis) 190/88 mmHg BP Standing (P ost-Dialysis) 132/75 mmHg Sitting Heart Rate Pre-Dialysis 105 BPM Sitting Heart Rate Post-Dialysis 78 BPM Standing Heart Rate Pre-Dialysis 109 BPM Standing Heart Rate Post-Dialysis 81 BPM Temperature Pre-Dialysis 97.5 degF Temperature Post -Dialysis 97.8 degF April 28, 2023 In-Center Hemodialysis Treatment [id number]:07:00.000Z 7462-02-11R41:11:19.000Z BP Sitting (Pre-Dialysis) 182/76 mmHg BP Sitting (Post-Dialysis) 142/66 mmHg Concurrent Access: falseAV Graft Upper Arm (Left) Arterial BP Standing (Pre-Dialysis) 206/92 mmHg BP Standing (P ost-Dialysis) 144/72 mmHg Sitting Heart Rate Pre-Dialysis 110 BPM Sitting Heart Rate Post-Dialysis 82 BPM Standing Heart Rate Pre-Dialysis 111 BPM Standing Heart Rate Post-Dialysis 86 BPM Temperature Pre-Dialysis 97.6 degF Temperature Post -Dialysis 97.8 degF April 26, 2023 In-Center Hemodialysis Treatment [id number]:25:38.000Z 8642-78-55I45:26:39.000Z BP Sitting (Pre-Dialysis) 159/75 mmHg BP Sitting (Post-Dialysis) 136/82 mmHg Concurrent Access: falseAV Graft Upper Arm (Left) Arterial BP Standing (Pre-Dialysis) 188/87 mmHg BP Standing (P ost-Dialysis) 156/68 mmHg Sitting Heart Rate Pre-Dialysis 104 BPM Sitting Heart Rate Post-Dialysis 73 BPM Standing Heart Rate Pre-Dialysis 109 BPM Standing Heart Rate Post-Dialysis 82 BPM Temperature Pre-Dialysis 97.3 degF Temperature Post -Dialysis 97.5 degF April 24, 2023 In-Center Hemodialysis Treatment [id number]:32:00.000Z 3488-12-76U43:37:52.000Z BP Sitting (Pre-Dialysis) 206/85 mmHg BP Sitting (Post-Dialysis) 158/68 mmHg Concurrent Access: falseAV Graft Upper Arm (Left) Arterial BP Standing (Pre-Dialysis) 202/92 mmHg Sitting Heart Rate Post-Dialysis 85 BPM Sitting Heart Rate Pre-Dialysis 105 BPM Standing Heart Rate Pre-Dialysis 104 BPM Temperature Pre-Dialysis 97.8 degF April 21, 2023 In-Center Hemodialysis Treatment 6530-84-50O59:27:27.000Z 9171-01-02S87:28:28.000Z BP Sitting (Pre-Dialysis) 186/90 mmHg BP Sitting (Post-Dialysis) 153/73 mmHg Concurrent Access: falseAV Graft Upper Arm (Left) Arterial Sitting Heart Rate Pre-Dialysis 105 BPM BP Standing (Post-Dialysis) 151/72 mmHg Temperature Pre-Dialysis 97.5 degF Sitting Heart Ra te Post-Dialysis 83 BPM Standing Heart Rate Post-Renée lysis 87 BPM Temperature Post-Dialysis 97 .8 degF April 19, 2023 In-Center Hemodialysis Treatment [id number]:26:00.000Z 0967-48-30R05:27:57.000Z BP Sitting (Pre-Dialysis) 170/84 mmHg BP Sitting (Post-Dialysis) 151/72 mmHg Concurrent Access: falseAV Graft Upper Arm (Left) Arterial BP Standing (Pre-Dialysis) 159/87 mmHg BP Standing (P ost-Dialysis) 139/72 mmHg Sitting Heart Rate Pre-Dialysis 104 BPM Sitting Heart Rate Post-Dialysis 87 BPM Standing Heart Rate Pre-Dialysis 103 BPM Standing Heart Rate Post-Dialysis 89 BPM Temperature Pre-Dialysis 97.6 degF Temperature Post -Dialysis 97.6 degF April 17, 2023 In-Center Hemodialysis Treatment [id number]:27:00.000Z 7086-48-70D72:27:35.000Z BP Sitting (Pre-Dialysis) 190/97 mmHg BP Sitting (Post-Dialysis) 128/75 mmHg Concurrent Access: falseAV Graft Upper Arm (Left) Arterial BP Standing (Pre-Dialysis) 203/101 mmHg Sitting Heart Rate Post-Dialysis 81 BPM Sitting Heart Rate Pre-Dialysis 104 BPM Standing Heart Rate Pre-Dialysis 104 BPM Temperature Pre-Dialysis 97.7 degF April 14, 2023 In-Center Hemodialysis Treatment [id number]:30:00.000Z 0099-36-48E88:33:10.000Z BP Sitting (Pre-Dialysis) 161/77 mmHg BP Sitting (Post-Dialysis) 148/67 mmHg Concurrent Access: falseAV Graft Upper Arm (Left) Arterial BP Standing (Pre-Dialysis) 171/79 mmHg BP Standing (P ost-Dialysis) 137/60 mmHg Sitting Heart Rate Pre-Dialysis 104 BPM Sitting Heart Rate Post-Dialysis 84 BPM Standing Heart Rate Pre-Dialysis 104 BPM Standing Heart Rate Post-Dialysis 87 BPM Temperature Pre-Dialysis 97.8 degF Temperature Post -Dialysis 97.8 degF April 12, 2023 In-Center Hemodialysis Treatment [id number]:27:09.000Z 0985-81-62X24:32:10.000Z BP Sitting (Pre-Dialysis) 169/95 mmHg BP Sitting (Post-Dialysis) 165/86 mmHg Concurrent Access: falseAV Graft Upper Arm (Left) Arterial BP Standing (Pre-Dialysis) 215/102 mmHg BP Standing (P ost-Dialysis) 158/85 mmHg Sitting Heart Rate Pre-Dialysis 99 BPM Sitting Heart Rate Post-Dialysis 83 BPM Standing Heart Rate Pre-Dialysis 96 BPM Standing Heart Rate Post-Dialysis 84 BPM Temperature Pre-Dialysis 97.9 degF Temperature Post -Dialysis 97.2 degF April 10, 2023 In-Center Hemodialysis Treatment [id number]:25:00.000Z 7213-71-58O21:31:09.000Z BP Sitting (Pre-Dialysis) 154/84 mmHg BP Sitting (Post-Dialysis) 137/64 mmHg Concurrent Access: falseAV Graft Upper Arm (Left) Arterial BP Standing (Pre-Dialysis) 202/78 mmHg BP Standing (P ost-Dialysis) 146/66 mmHg Sitting Heart Rate Pre-Dialysis 106 BPM Sitting Heart Rate Post-Dialysis 79 BPM Standing Heart Rate Pre-Dialysis 104 BPM Standing Heart Rate Post-Dialysis 82 BPM Temperature Pre-Dialysis 97.8 degF Temperature Post -Dialysis 97.8 degF April 07, 2023 In-Center Hemodialysis Treatment [id number]:29:00.000Z 0337-65-29H45:34:17.000Z BP Sitting (Pre-Dialysis) 164/71 mmHg BP Sitting (Post-Dialysis) 148/71 mmHg Concurrent Access: falseAV Graft Upper Arm (Left) Arterial BP Standing (Pre-Dialysis) 208/87 mmHg BP Standing (P ost-Dialysis) 138/70 mmHg Sitting Heart Rate Pre-Dialysis 102 BPM Sitting Heart Rate Post-Dialysis 89 BPM Standing Heart Rate Pre-Dialysis 105 BPM Standing Heart Rate Post-Dialysis 87 BPM Temperature Pre-Dialysis 97.6 degF Temperature Post -Dialysis 97.8 degF April 05, 2023 In-Center Hemodialysis Treatment [id number]:26:17.000Z 2962-72-76A10:26:17.000Z BP Sitting (Pre-Dialysis) 190/93 mmHg BP Sitting (Post-Dialysis) 124/78 mmHg Concurrent Access: falseAV Graft Upper Arm (Left) Arterial BP Standing (Pre-Dialysis) 196/98 mmHg BP Standing (P ost-Dialysis) 149/78 mmHg Sitting Heart Rate Pre-Dialysis 100 BPM Sitting Heart Rate Post-Dialysis 88 BPM Standing Heart Rate Pre-Dialysis 101 BPM Standing Heart Rate Post-Dialysis 88 BPM Temperature Pre-Dialysis 97 degF Temperature Post -Dialysis 97.2 degF April 03, 2023 In-Center Hemodialysis Treatment [id number]:25:00.000Z 1990-50-51C68:27:17.000Z BP Sitting (Pre-Dialysis) 205/87 mmHg BP Sitting (Post-Dialysis) 140/77 mmHg Concurrent Access: falseAV Graft Upper Arm (Left) Arterial Sitting Heart Rate Pre-Dialysis 106 BPM BP Standing (Post-Dialysis) 144/74 mmHg Temperature Pre-Dialysis 97.6 degF Sitting Heart Ra te Post-Dialysis 88 BPM Standing Heart Rate Post-Renée lysis 88 BPM Temperature Post-Dialysis 98 .1 degF March 31, 2023 In-Center Hemodialysis Treatment [id number]:26:24.000Z 8318-28-82B91:03:24.000Z BP Sitting (Pre-Dialysis) 176/80 mmHg BP Sitting (Post-Dialysis) 138/53 mmHg Concurrent Access: falseAV Graft Upper Arm (Left) Arterial BP Standing (Pre-Dialysis) 216/106 mmHg Sitti ng Heart Rate Post-Dialysis 53 BPM Sitting Heart Rate Pre-Dialysis 99 BPM Temperatu re Post-Dialysis 98 degF Standing Heart Rate Pre-Dialysis 105 BPM Temperature Pre-Dialysis 97.5 degF March 29, 2023 In-Center Hemodialysis Treatment 9650-10-22U91:28:10.000Z 4936-29-62U03:34:10.000Z BP Sitting (Pre-Dialysis) 165/84 mmHg BP Sitting (Post-Dialysis) 131/70 mmHg Concurrent Access: falseAV Graft Upper Arm (Left) Arterial BP Standing (Pre-Dialysis) 165/84 mmHg BP Standing (P ost-Dialysis) 118/68 mmHg Sitting Heart Rate Pre-Dialysis 98 BPM Sitting Heart Rate Post-Dialysis 86 BPM Standing Heart Rate Pre-Dialysis 98 BPM Standing Heart Rate Post-Dialysis 90 BPM Temperature Pre-Dialysis 97.6 degF Temperature Post -Dialysis 98.1 degF March 27, 2023 In-Center Hemodialysis Treatment [id number]:14:10.000Z 4895-95-77J80:18:10.000Z BP Sitting (Pre-Dialysis) 146/81 mmHg BP Sitting (Post-Dialysis) 143/79 mmHg Concurrent Access: falseAV Graft Upper Arm (Left) Arterial BP Standing (Pre-Dialysis) 193/77 mmHg BP Standing (P ost-Dialysis) 155/82 mmHg Sitting Heart Rate Pre-Dialysis 98 BPM Sitting Heart Rate Post-Dialysis 82 BPM Standing Heart Rate Pre-Dialysis 100 BPM Standing Heart Rate Post-Dialysis 88 BPM Temperature Pre-Dialysis 97 degF Temperature Post -Dialysis 97.9 degF March 24, 2023 In-Center Hemodialysis Treatment 0614-40-43T45:35:29.000Z 6439-11-27D98:39:29.000Z BP Sitting (Pre-Dialysis) 185/81 mmHg BP Sitting (Post-Dialysis) 148/86 mmHg Concurrent Access: falseAV Graft Upper Arm (Left) Arterial BP Standing (Pre-Dialysis) 185/81 mmHg Sitti ng Heart Rate Post-Dialysis 97 BPM Sitting Heart Rate Pre-Dialysis 106 BPM Temperatu re Post-Dialysis 97.6 degF Standing Heart Rate Pre-Dialysis 106 BPM Temperature Pre-Dialysis 97.9 degF March 22, 2023 In-Center Hemodialysis Treatment 4805-90-14P43:28:00.000Z 3032-77-89P47:33:10.000Z BP Sitting (Pre-Dialysis) 180/89 mmHg BP Sitting (Post-Dialysis) 136/71 mmHg Concurrent Access: falseAV Graft Upper Arm (Left) Arterial BP Standing (Pre-Dialysis) 158/87 mmHg BP Standing (P ost-Dialysis) 158/75 mmHg Sitting Heart Rate Pre-Dialysis 102 BPM Sitting Heart Rate Post-Dialysis 79 BPM Standing Heart Rate Pre-Dialysis 98 BPM Standing Heart Rate Post-Dialysis 79 BPM Temperature Pre-Dialysis 97.6 degF Temperature Post -Dialysis 97.2 degF March 20, 2023 In-Center Hemodialysis Treatment 4751-01-46J90:28:29.000Z 5534-69-68R61:30:29.000Z BP Sitting (Pre-Dialysis) 154/78 mmHg BP Sitting (Post-Dialysis) 153/80 mmHg Concurrent Access: falseAV Graft Upper Arm (Left) Arterial BP Standing (Pre-Dialysis) 164/81 mmHg BP Standing (P ost-Dialysis) 140/75 mmHg Sitting Heart Rate Pre-Dialysis 102 BPM Sitting Heart Rate Post-Dialysis 87 BPM Standing Heart Rate Pre-Dialysis 103 BPM Standing Heart Rate Post-Dialysis 80 BPM Temperature Pre-Dialysis 97.6 degF Temperature Post -Dialysis 97.6 degF March 17, 2023 In-Center Hemodialysis Treatment 8983-18-04P63:07:00.000Z 6431-34-69V69:11:34.000Z BP Sitting (Pre-Dialysis) 187/76 mmHg BP Sitting (Post-Dialysis) 132/75 mmHg Concurrent Access: falseAV Graft Upper Arm (Left) Arterial BP Standing (Pre-Dialysis) 207/92 mmHg Sitti ng Heart Rate Post-Dialysis 86 BPM Sitting Heart Rate Pre-Dialysis 107 BPM Temperatu re Post-Dialysis 97.5 degF Standing Heart Rate Pre-Dialysis 117 BPM Temperature Pre-Dialysis 97.2 degF March 15, 2023 In-Center Hemodialysis Treatment [id number]:15:00.000Z 9011-55-04O84:18:34.000Z BP Sitting (Pre-Dialysis) 142/72 mmHg BP Sitting (Post-Dialysis) 144/64 mmHg Concurrent Access: falseAV Graft Upper Arm (Left) Arterial BP Standing (Pre-Dialysis) 150/63 mmHg BP Standing (P ost-Dialysis) 148/66 mmHg Sitting Heart Rate Pre-Dialysis 104 BPM Sitting Heart Rate Post-Dialysis 98 BPM Standing Heart Rate Pre-Dialysis 104 BPM Standing Heart Rate Post-Dialysis 99 BPM Temperature Pre-Dialysis 97.3 degF Temperature Post -Dialysis 97.3 degF March 13, 2023 In-Center Hemodialysis Treatment 4756-71-21B18:30:00.000Z 2836-62-45Q68:34:49.000Z BP Sitting (Pre-Dialysis) 105/91 mmHg BP Sitting (Post-Dialysis) 142/64 mmHg Concurrent Access: falseAV Graft Upper Arm (Left) Arterial BP Standing (Pre-Dialysis) 202/92 mmHg Sitting Heart Rate Post-Dialysis 87 BPM Sitting Heart Rate Pre-Dialysis 112 BPM Standing Heart Rate Pre-Dialysis 104 BPM Temperature Pre-Dialysis 97.6 degF March 10, 2023 In-Center Hemodialysis Treatment [id number]:28:00.000Z 3152-67-32F22:33:22.000Z BP Sitting (Pre-Dialysis) 194/89 mmHg BP Sitting (Post-Dialysis) 135/69 mmHg Concurrent Access: falseAV Graft Upper Arm (Left) Arterial BP Standing (Pre-Dialysis) 184/92 mmHg BP Standing (P ost-Dialysis) 133/61 mmHg Sitting Heart Rate Pre-Dialysis 111 BPM Sitting Heart Rate Post-Dialysis 64 BPM Standing Heart Rate Pre-Dialysis 105 BPM Standing Heart Rate Post-Dialysis 66 BPM Temperature Pre-Dialysis 97.8 degF Temperature Post -Dialysis 97.7 degF March 08, 2023 In-Center Hemodialysis Treatment 8921-89-56U91:31:00.000Z 8371-45-90F64:36:22.000Z BP Sitting (Pre-Dialysis) 183/91 mmHg BP Sitting (Post-Dialysis) 133/65 mmHg Concurrent Access: falseAV Graft Upper Arm (Left) Arterial BP Standing (Pre-Dialysis) 174/80 mmHg BP Standing (P ost-Dialysis) 133/61 mmHg Sitting Heart Rate Pre-Dialysis 101 BPM Sitting Heart Rate Post-Dialysis 88 BPM Standing Heart Rate Pre-Dialysis 99 BPM Standing Heart Rate Post-Dialysis 99 BPM Temperature Pre-Dialysis 97.1 degF Temperature Post -Dialysis 97.6 degF March 06, 2023 In-Center Hemodialysis Treatment [id number]:29:22.000Z 9440-14-95I70:33:22.000Z BP Sitting (Pre-Dialysis) 188/93 mmHg BP Sitting (Post-Dialysis) 131/74 mmHg Concurrent Access: falseAV Graft Upper Arm (Left) Arterial Sitting Heart Rate Pre-Dialysis 105 BPM Sitting H eart Rate Post-Dialysis 86 BPM Temperature Pre-Dialysis 97.6 degF Temperature Post -Dialysis 97.3 degF March 03, 2023 In-Center Hemodialysis Treatment [id number]:42:00.000Z 1703-68-53C35:35:25.000Z BP Sitting (Pre-Dialysis) 187/78 mmHg BP Sitting (Post-Dialysis) 124/72 mmHg Concurrent Access: falseAV Graft Upper Arm (Left) Arterial BP Standing (Pre-Dialysis) 203/87 mmHg Sitti ng Heart Rate Post-Dialysis 92 BPM Sitting Heart Rate Pre-Dialysis 112 BPM Temperatu re Post-Dialysis 97.9 degF Standing Heart Rate Pre-Dialysis 115 BPM Temperature Pre-Dialysis 97.6 degF March 01, 2023 In-Center Hemodialysis Treatment 0011-83-06B94:31:00.000Z 3379-14-53Q47:38:25.000Z BP Sitting (Pre-Dialysis) 158/100 mmHg BP Sitting (Post-Dialysis) 122/76 mmHg Concurrent Access: falseAV Graft Upper Arm (Left) Arterial BP Standing (Pre-Dialysis) 207/94 mmHg BP Standing (P ost-Dialysis) 137/73 mmHg Sitting Heart Rate Pre-Dialysis 105 BPM Sitting Heart Rate Post-Dialysis 93 BPM Standing Heart Rate Pre-Dialysis 112 BPM Standing Heart Rate Post-Dialysis 95 BPM Temperature Pre-Dialysis 97.9 degF February 27, 2023 In-Center Hemodialysis Treatment 5846-99-05G51:43:00.000Z 1362-30-71W52:47:38.000Z BP Sitting (Pre-Dialysis) 172/89 mmHg BP Sitting (Post-Dialysis) 138/65 mmHg Concurrent Access: falseAV Graft Upper Arm (Left) Arterial Sitting Heart Rate Pre-Dialysis 100 BPM Sitting H eart Rate Post-Dialysis 85 BPM Temperature Pre-Dialysis 97.4 degF Temperature Post -Dialysis 97.8 degF February 24, 2023 In-Center Hemodialysis Treatment 9949-96-25A50:28:00.000Z 1881-48-77M96:30:09.000Z BP Sitting (Pre-Dialysis) 190/91 mmHg BP Sitting (Post-Dialysis) 136/74 mmHg Concurrent Access: falseAV Graft Upper Arm (Left) Arterial Sitting Heart Rate Pre-Dialysis 103 BPM Sitting H eart Rate Post-Dialysis 91 BPM Temperature Pre-Dialysis 97.8 degF Temperature Post -Dialysis 97.8 degF February 22, 2023 In-Center Hemodialysis Treatment 2979-32-88Z53:30:09.000Z 5050-20-73B79:37:09.000Z BP Sitting (Pre-Dialysis) 156/81 mmHg BP Sitting (Post-Dialysis) 137/65 mmHg Concurrent Access: falseAV Graft Upper Arm (Left) Arterial BP Standing (Pre-Dialysis) 156/80 mmHg BP Standing (P ost-Dialysis) 138/71 mmHg Sitting Heart Rate Pre-Dialysis 103 BPM Sitting Heart Rate Post-Dialysis 87 BPM Standing Heart Rate Pre-Dialysis 105 BPM Standing Heart Rate Post-Dialysis 96 BPM Temperature Pre-Dialysis 97.8 degF Temperature Post -Dialysis 97.9 degF February 20, 2023 In-Center Hemodialysis Treatment 5221-08-74F68:28:09.000Z 5409-83-36V43:29:09.000Z BP Sitting (Pre-Dialysis) 175/87 mmHg BP Sitting (Post-Dialysis) 119/68 mmHg Concurrent Access: falseAV Graft Upper Arm (Left) Arterial BP Standing (Pre-Dialysis) 189/96 mmHg Sitting Heart Rate Post-Dialysis 88 BPM Sitting Heart Rate Pre-Dialysis 98 BPM Temperatu re Post-Dialysis 97 degF Standing Heart Rate Pre-Dialysis 109 BPM Temperature Pre-Dialysis 97.8 degF February 17, 2023 In-Center Hemodialysis Treatment 5177-20-30E48:25:00.000Z 6624-97-97A20:29:29.000Z BP Sitting (Pre-Dialysis) 225/100 mmHg BP Sitting (Post-Dialysis) 161/75 mmHg Concurrent Access: falseAV Graft Upper Arm (Left) Arterial Sitting Heart Rate Pre-Dialysis 107 BPM Sitting H eart Rate Post-Dialysis 82 BPM Temperature Pre-Dialysis 97.6 degF Temperature Post -Dialysis 98.1 degF February 15, 2023 In-Center Hemodialysis Treatment 0553-54-41T35:23:29.000Z 6676-32-09N87:25:29.000Z BP Sitting (Pre-Dialysis) 152/81 mmHg BP Sitting (Post-Dialysis) 137/70 mmHg Concurrent Access: falseAV Graft Upper Arm (Left) Arterial BP Standing (Pre-Dialysis) 183/79 mmHg BP Standing (P ost-Dialysis) 137/72 mmHg Sitting Heart Rate Pre-Dialysis 100 BPM Sitting Heart Rate Post-Dialysis 83 BPM Standing Heart Rate Pre-Dialysis 102 BPM Standing Heart Rate Post-Dialysis 81 BPM Temperature Pre-Dialysis 97.4 degF Temperature Post -Dialysis 98.1 degF February 13, 2023 In-Center Hemodialysis Treatment [id number]:30:00.000Z 6048-65-57B44:44:19.000Z BP Sitting (Pre-Dialysis) 162/89 mmHg BP Sitting (Post-Dialysis) 136/67 mmHg Concurrent Access: falseAV Graft Upper Arm (Left) Arterial Sitting Heart Rate Pre-Dialysis 101 BPM Sitting H eart Rate Post-Dialysis 85 BPM Temperature Pre-Dialysis 97.8 degF Temperature Post -Dialysis 97.8 degF February 10, 2023 In-Center Hemodialysis Treatment 4202-53-74J87:25:00.000Z 5396-41-56B84:01:21.000Z BP Sitting (Pre-Dialysis) 182/90 mmHg BP Sitting (Post-Dialysis) 151/74 mmHg Concurrent Access: falseAV Graft Upper Arm (Left) Arterial Sitting Heart Rate Pre-Dialysis 106 BPM Sitting H eart Rate Post-Dialysis 87 BPM Temperature Pre-Dialysis 97.8 degF February 08, 2023 In-Center Hemodialysis Treatment 0009-06-23G40:34:00.000Z 1873-09-11O04:36:49.000Z BP Sitting (Pre-Dialysis) 205/100 mmHg BP Sitting (Post-Dialysis) 165/73 mmHg Concurrent Access: falseAV Graft Upper Arm (Left) Arterial Sitting Heart Rate Pre-Dialysis 102 BPM Sitting H eart Rate Post-Dialysis 87 BPM Temperature Pre-Dialysis 97.7 degF Temperature Post -Dialysis 97.6 degF February 06, 2023 In-Center Hemodialysis Treatment 9265-19-37Y44:17:00.000Z 1703-77-36J36:22:10.000Z BP Sitting (Pre-Dialysis) 200/108 mmHg BP Sitting (Post-Dialysis) 151/79 mmHg Concurrent Access: falseAV Graft Upper Arm (Left) Arterial Sitting Heart Rate Pre-Dialysis 101 BPM Sitting H eart Rate Post-Dialysis 79 BPM Temperature Pre-Dialysis 97.9 degF Temperature Post -Dialysis 97.9 degF February 03, 2023 In-Center Hemodialysis Treatment 6856-75-74N73:05:00.000Z 5729-25-99L58:04:13.000Z BP Sitting (Pre-Dialysis) 224/103 mmHg BP Sitting (Post-Dialysis) 143/57 mmHg Concurrent Access: falseAV Graft Upper Arm (Left) Arterial Sitting Heart Rate Pre-Dialysis 111 BPM Sitting H eart Rate Post-Dialysis 85 BPM Temperature Pre-Dialysis 97.7 degF February 01, 2023 In-Center Hemodialysis Treatment [id number]:35:00.000Z 2724-06-26A87:41:13.000Z BP Sitting (Pre-Dialysis) 160/101 mmHg BP Sitting (Post-Dialysis) 119/63 mmHg Concurrent Access: falseAV Graft Upper Arm (Left) Arterial Sitting Heart Rate Pre-Dialysis 100 BPM Sitting H eart Rate Post-Dialysis 79 BPM Temperature Pre-Dialysis 97.9 degF January 30, 2023 In-Center Hemodialysis Treatment [id number]:40:00.000Z 7228-27-45N95:45:13.000Z BP Sitting (Pre-Dialysis) 165/83 mmHg BP Sitting (Post-Dialysis) 136/71 mmHg Concurrent Access: falseAV Graft Upper Arm (Left) Arterial Sitting Heart Rate Pre-Dialysis 100 BPM Sitting H eart Rate Post-Dialysis 81 BPM Temperature Pre-Dialysis 97.3 degF Temperature Post -Dialysis 97 degF January 27, 2023 In-Center Hemodialysis Treatment [id number]:14:00.000Z 2860-01-45C89:17:32.000Z BP Sitting (Pre-Dialysis) 181/81 mmHg BP Sitting (Post-Dialysis) 145/72 mmHg Concurrent Access: falseAV Graft Upper Arm (Left) Arterial Sitting Heart Rate Pre-Dialysis 106 BPM Sitting H eart Rate Post-Dialysis 78 BPM Temperature Pre-Dialysis 97.7 degF Temperature Post -Dialysis 97.5 degF January 25, 2023 In-Center Hemodialysis Treatment [id number]:27:00.000Z [id number]:29:00.000Z BP Sitting (Pre-Dialysis) 159/63 mmHg BP Sitting (Post-Dialysis) 146/68 mmHg Concurrent Access: falseAV Graft Upper Arm (Left) Arterial Sitting Heart Rate Pre-Dialysis 107 BPM Sitting H eart Rate Post-Dialysis 82 BPM Temperature Pre-Dialysis 97.8 degF Temperature Post -Dialysis 97.6 degF January 23, 2023 In-Center Hemodialysis Treatment [id number]:03:00.000Z 5602-75-79K75:04:39.000Z BP Sitting (Pre-Dialysis) 164/76 mmHg BP Sitting (Post-Dialysis) 154/66 mmHg Concurrent Access: falseAV Graft Upper Arm (Left) Arterial Sitting Heart Rate Pre-Dialysis 95 BPM Sitting H eart Rate Post-Dialysis 81 BPM Temperature Pre-Dialysis 97.6 degF Temperature Post -Dialysis 97.6 degF January 20, 2023 In-Center Hemodialysis Treatment 2308-02-85F94:49:00.000Z 9614-22-63A13:54:28.000Z BP Sitting (Pre-Dialysis) 165/72 mmHg BP Sitting (Post-Dialysis) 145/80 mmHg Concurrent Access: falseAV Graft Upper Arm (Left) Arterial Sitting Heart Rate Pre-Dialysis 105 BPM Sitting H eart Rate Post-Dialysis 68 BPM Temperature Pre-Dialysis 97.2 degF Temperature Post -Dialysis 97 degF January 18, 2023 In-Center Hemodialysis Treatment [id number]:45:00.000Z 8081-09-88J94:45:56.000Z BP Sitting (Pre-Dialysis) 197/90 mmHg BP Sitting (Post-Dialysis) 143/68 mmHg Concurrent Access: falseAV Graft Upper Arm (Left) Arterial Sitting Heart Rate Pre-Dialysis 96 BPM Sitting H eart Rate Post-Dialysis 75 BPM Temperature Pre-Dialysis 97.8 degF Temperature Post -Dialysis 97 degF January 16, 2023 In-Center Hemodialysis Treatment 2859-91-29J40:27:00.000Z 1137-01-32T29:29:38.000Z BP Sitting (Pre-Dialysis) 172/85 mmHg BP Sitting (Post-Dialysis) 136/73 mmHg Concurrent Access: falseAV Graft Upper Arm (Left) Arterial Sitting Heart Rate Pre-Dialysis 105 BPM Sitting H eart Rate Post-Dialysis 78 BPM Temperature Pre-Dialysis 97.2 degF Temperature Post -Dialysis 97.8 degF January 13, 2023 In-Center Hemodialysis Treatment 1685-81-16Y35:27:16.000Z 2293-77-65S90:30:17.000Z BP Sitting (Pre-Dialysis) 202/88 mmHg BP Sitting (Post-Dialysis) 136/70 mmHg Concurrent Access: falseAV Graft Upper Arm (Left) Arterial Sitting Heart Rate Pre-Dialysis 92 BPM Sitting H eart Rate Post-Dialysis 71 BPM Temperature Pre-Dialysis 97.7 degF Temperature Post -Dialysis 97.6 degF January 11, 2023 In-Center Hemodialysis Treatment [id number]:37:00.000Z 2644-70-13H66:43:27.000Z BP Sitting (Pre-Dialysis) 165/80 mmHg BP Sitting (Post-Dialysis) 116/59 mmHg Concurrent Access: falseAV Graft Upper Arm (Left) Arterial BP Standing (Pre-Dialysis) 157/54 mmHg Sitti ng Heart Rate Post-Dialysis 72 BPM Sitting Heart Rate Pre-Dialysis 88 BPM Temperatu re Post-Dialysis 97.6 degF Standing Heart Rate Pre-Dialysis 68 BPM Temperature Pre-Dialysis 97.6 degF January 09, 2023 In-Center Hemodialysis Treatment [id number]:35:00.000Z 4134-65-48V21:33:23.000Z BP Sitting (Pre-Dialysis) 190/85 mmHg BP Sitting (Post-Dialysis) 145/75 mmHg Concurrent Access: falseAV Graft Upper Arm (Left) Arterial Sitting Heart Rate Pre-Dialysis 94 BPM Sitting H eart Rate Post-Dialysis 75 BPM Temperature Pre-Dialysis 97.7 degF Temperature Post -Dialysis 97.6 degF January 06, 2023 In-Center Hemodialysis Treatment 7856-74-89N55:45:00.000Z 5575-07-51U45:47:13.000Z BP Sitting (Pre-Dialysis) 154/72 mmHg BP Sitting (Post-Dialysis) 111/65 mmHg Concurrent Access: falseAV Graft Upper Arm (Left) Arterial Sitting Heart Rate Pre-Dialysis 107 BPM Sitting H eart Rate Post-Dialysis 72 BPM Temperature Pre-Dialysis 97.6 degF Temperature Post -Dialysis 97 degF January 04, 2023 In-Center Hemodialysis Treatment 3754-50-60X48:22:00.000Z 8603-67-82V42:32:28.000Z BP Sitting (Pre-Dialysis) 175/81 mmHg BP Sitting (Post-Dialysis) 126/71 mmHg Concurrent Access: falseAV Graft Upper Arm (Left) Arterial Sitting Heart Rate Pre-Dialysis 89 BPM Sitting H eart Rate Post-Dialysis 81 BPM Temperature Pre-Dialysis 97.6 degF Temperature Post -Dialysis 97.6 degF January 02, 2023 In-Center Hemodialysis Treatment 9089-08-51Q50:23:00.000Z 8055-73-12V37:34:00.000Z BP Sitting (Pre-Dialysis) 164/89 mmHg BP Sitting (Post-Dialysis) 132/63 mmHg Concurrent Access: falseAV Graft Upper Arm (Left) Arterial Sitting Heart Rate Pre-Dialysis 89 BPM Sitting H eart Rate Post-Dialysis 76 BPM Temperature Pre-Dialysis 97.6 degF Temperature Post -Dialysis 97.8 degF December 30, 2022 In-Center Hemodialysis Treatment 8889-49-61P25:56:00.000Z 0002-27-34K58:58:13.000Z BP Sitting (Pre-Dialysis) 151/76 mmHg BP Sitting (Post-Dialysis) 118/62 mmHg Concurrent Access: falseAV Graft Upper Arm (Left) Arterial BP Standing (Pre-Dialysis) 165/85 mmHg Sitting Heart Rate Post-Dialysis 69 BPM Sitting Heart Rate Pre-Dialysis 80 BPM Standing Heart Rate Pre-Dialysis 81 BPM Temperature Pre-Dialysis 97 degF December 28, 2022 In-Center Hemodialysis Treatment 2683-83-44R05:03:00.000Z 8807-76-18P26:10:13.000Z BP Sitting (Pre-Dialysis) 186/84 mmHg BP Sitting (Post-Dialysis) 117/62 mmHg Concurrent Access: falseAV Graft Upper Arm (Left) Arterial Sitting Heart Rate Pre-Dialysis 96 BPM Sitting H eart Rate Post-Dialysis 80 BPM Temperature Pre-Dialysis 97.5 degF Temperature Post -Dialysis 97.5 degF December 26, 2022 In-Center Hemodialysis Treatment 8798-48-84U22:30:00.000Z 8538-45-68N11:32:13.000Z BP Sitting (Pre-Dialysis) 145/70 mmHg BP Sitting (Post-Dialysis) 123/66 mmHg Concurrent Access: falseAV Graft Upper Arm (Left) Arterial Sitting Heart Rate Pre-Dialysis 86 BPM Sitting H eart Rate Post-Dialysis 72 BPM Temperature Pre-Dialysis 97.7 degF Temperature Post -Dialysis 97.6 degF December 23, 2022 In-Center Hemodialysis Treatment 8220-77-57R97:31:00.000Z 9374-04-72H77:33:16.000Z BP Sitting (Pre-Dialysis) 152/78 mmHg BP Sitting (Post-Dialysis) 124/61 mmHg Concurrent Access: falseAV Graft Upper Arm (Left) Arterial Sitting Heart Rate Pre-Dialysis 98 BPM Sitting H eart Rate Post-Dialysis 67 BPM Temperature Pre-Dialysis 97.4 degF Temperature Post -Dialysis 97 degF December 21, 2022 In-Center Hemodialysis Treatment 7224-20-25F05:52:00.000Z 2976-17-84C54:53:16.000Z BP Sitting (Pre-Dialysis) 139/75 mmHg BP Sitting (Post-Dialysis) 108/60 mmHg Concurrent Access: falseAV Graft Upper Arm (Left) Arterial BP Standing (Pre-Dialysis) 182/79 mmHg BP Standing (P ost-Dialysis) 108/60 mmHg Sitting Heart Rate Pre-Dialysis 84 BPM Sitting Heart Rate Post-Dialysis 83 BPM Standing Heart Rate Pre-Dialysis 91 BPM Standing Heart Rate Post-Dialysis 83 BPM Temperature Pre-Dialysis 97.9 degF Temperature Post -Dialysis 97 degF December 19, 2022 In-Center Hemodialysis Treatment 6009-56-23Y03:47:00.000Z 1713-29-65A74:52:43.000Z BP Sitting (Pre-Dialysis) 193/85 mmHg BP Sitting (Post-Dialysis) 124/53 mmHg Concurrent Access: falseAV Graft Upper Arm (Left) Arterial Sitting Heart Rate Pre-Dialysis 103 BPM Sitting H eart Rate Post-Dialysis 75 BPM Temperature Pre-Dialysis 98.1 degF Temperature Post -Dialysis 98.1 degF December 16, 2022 In-Center Hemodialysis Treatment 2223-53-49Y47:38:00.000Z 0158-24-62U46:40:17.000Z BP Sitting (Pre-Dialysis) 195/85 mmHg BP Sitting (Post-Dialysis) 123/61 mmHg Concurrent Access: falseAV Graft Upper Arm (Left) Arterial Sitting Heart Rate Pre-Dialysis 92 BPM Sitting H eart Rate Post-Dialysis 76 BPM Temperature Pre-Dialysis 97.6 degF Temperature Post -Dialysis 97.6 degF December 14, 2022 In-Center Hemodialysis Treatment 6830-33-10X63:35:00.000Z 2540-12-73O39:41:20.000Z BP Sitting (Pre-Dialysis) 144/77 mmHg BP Sitting (Post-Dialysis) 104/68 mmHg Concurrent Access: falseAV Graft Upper Arm (Left) Arterial Sitting Heart Rate Pre-Dialysis 93 BPM Sitting H eart Rate Post-Dialysis 72 BPM Temperature Pre-Dialysis 96.5 degF Temperature Post -Dialysis 97 degF December 12, 2022 In-Center Hemodialysis Treatment 3724-39-21S61:34:00.000Z 8151-22-56G12:43:08.000Z BP Sitting (Pre-Dialysis) 176/87 mmHg BP Sitting (Post-Dialysis) 99/53 mmHg Concurrent Access: falseAV Graft Upper Arm (Left) Arterial Sitting Heart Rate Pre-Dialysis 100 BPM Sitting H eart Rate Post-Dialysis 70 BPM Temperature Pre-Dialysis 97.7 degF Temperature Post -Dialysis 96.7 degF December 09, 2022 In-Center Hemodialysis Treatment 9291-40-87J39:28:00.000Z 5269-31-35B26:34:10.000Z BP Sitting (Pre-Dialysis) 175/91 mmHg BP Sitting (Post-Dialysis) 116/60 mmHg Concurrent Access: falseAV Graft Upper Arm (Left) Arterial BP Standing (Pre-Dialysis) 186/75 mmHg Sitti ng Heart Rate Post-Dialysis 72 BPM Sitting Heart Rate Pre-Dialysis 100 BPM Temperatu re Post-Dialysis 97.8 degF Standing Heart Rate Pre-Dialysis 110 BPM Temperature Pre-Dialysis 97.8 degF December 07, 2022 In-Center Hemodialysis Treatment 2942-73-94X86:34:00.000Z 5125-30-31J47:34:10.000Z BP Sitting (Pre-Dialysis) 180/56 mmHg BP Sitting (Post-Dialysis) 129/59 mmHg Concurrent Access: falseAV Graft Upper Arm (Left) Arterial Sitting Heart Rate Pre-Dialysis 90 BPM Sitting H eart Rate Post-Dialysis 73 BPM Temperature Pre-Dialysis 97.9 degF Temperature Post -Dialysis 98 degF December 05, 2022 In-Center Hemodialysis Treatment 7644-45-54E79:43:10.000Z 9230-33-65P90:44:10.000Z BP Sitting (Pre-Dialysis) 189/85 mmHg BP Sitting (Post-Dialysis) 133/54 mmHg Concurrent Access: falseAV Graft Upper Arm (Left) Arterial Sitting Heart Rate Pre-Dialysis 100 BPM Sitting H eart Rate Post-Dialysis 77 BPM Temperature Pre-Dialysis 97.8 degF December 02, 2022 In-Center Hemodialysis Treatment 6580-86-65A69:26:00.000Z 0750-09-51C47:30:21.000Z BP Sitting (Pre-Dialysis) 147/77 mmHg BP Sitting (Post-Dialysis) 144/66 mmHg Concurrent Access: falseAV Graft Upper Arm (Left) Arterial BP Standing (Pre-Dialysis) 183/95 mmHg Sitting Heart Rate Post-Dialysis 75 BPM Sitting Heart Rate Pre-Dialysis 92 BPM Temperatu re Post-Dialysis 97 degF Standing Heart Rate Pre-Dialysis 96 BPM Temperature Pre-Dialysis 98.1 degF November 30, 2022 In-Center Hemodialysis Treatment 4955-69-70H08:30:00.000Z 7753-67-98S69:36:21.000Z BP Sitting (Pre-Dialysis) 186/83 mmHg BP Sitting (Post-Dialysis) 98/56 mmHg Concurrent Access: falseAV Graft Upper Arm (Left) Arterial Sitting Heart Rate Pre-Dialysis 88 BPM Sitting H eart Rate Post-Dialysis 59 BPM Temperature Pre-Dialysis 97.5 degF Temperature Post -Dialysis 97 degF November 28, 2022 In-Center Hemodialysis Treatment 6612-28-54C82:54:00.000Z 0903-27-94U69:53:21.000Z BP Sitting (Pre-Dialysis) 187/90 mmHg BP Sitting (Post-Dialysis) 141/66 mmHg Concurrent Access: falseAV Graft Upper Arm (Left) Arterial Sitting Heart Rate Pre-Dialysis 102 BPM Sitting H eart Rate Post-Dialysis 76 BPM Temperature Pre-Dialysis 97.9 degF Temperature Post -Dialysis 97.8 degF November 25, 2022 In-Center Hemodialysis Treatment 6225-10-16W16:22:00.000Z 5253-60-12N01:24:24.000Z BP Sitting (Pre-Dialysis) 151/89 mmHg BP Sitting (Post-Dialysis) 140/71 mmHg Concurrent Access: falseAV Graft Upper Arm (Left) Arterial Sitting Heart Rate Pre-Dialysis 93 BPM Sitting H eart Rate Post-Dialysis 80 BPM Temperature Pre-Dialysis 97.4 degF Temperature Post -Dialysis 97.8 degF November 23, 2022 In-Center Hemodialysis Treatment 3964-70-07R89:18:00.000Z 2522-05-53I94:19:24.000Z BP Sitting (Pre-Dialysis) 162/84 mmHg BP Sitting (Post-Dialysis) 115/65 mmHg Concurrent Access: falseAV Graft Upper Arm (Left) Arterial Sitting Heart Rate Pre-Dialysis 101 BPM BP Standing (Post-Dialysis) 162/65 mmHg Temperature Pre-Dialysis 97.8 degF Sitting Heart Ra te Post-Dialysis 72 BPM Standing Heart Rate Post-Renée lysis 93 BPM Temperature Post-Dialysis 97 .6 degF November 21, 2022 In-Center Hemodialysis Treatment 8663-79-35Y71:45:00.000Z 2385-52-61N98:51:24.000Z BP Sitting (Pre-Dialysis) 142/79 mmHg BP Sitting (Post-Dialysis) 130/63 mmHg Concurrent Access: falseAV Graft Upper Arm (Left) Arterial BP Standing (Pre-Dialysis) 164/72 mmHg Sitti ng Heart Rate Post-Dialysis 87 BPM Sitting Heart Rate Pre-Dialysis 83 BPM Temperatu re Post-Dialysis 97.8 degF Standing Heart Rate Pre-Dialysis 93 BPM Temperature Pre-Dialysis 97.8 degF November 18, 2022 In-Center Hemodialysis Treatment 7807-55-19N43:39:00.000Z 7240-68-38T83:42:08.000Z BP Sitting (Pre-Dialysis) 175/74 mmHg BP Sitting (Post-Dialysis) 142/66 mmHg Concurrent Access: falseAV Graft Upper Arm (Left) Arterial Sitting Heart Rate Pre-Dialysis 98 BPM Sitting H eart Rate Post-Dialysis 78 BPM Temperature Pre-Dialysis 97.8 degF Temperature Post -Dialysis 97 degF November 16, 2022 In-Center Hemodialysis Treatment 6786-44-19B32:25:00.000Z 2096-27-78H27:32:58.000Z BP Sitting (Pre-Dialysis) 175/85 mmHg BP Sitting (Post-Dialysis) 121/63 mmHg Concurrent Access: falseAV Graft Upper Arm (Left) Arterial Sitting Heart Rate Pre-Dialysis 102 BPM Sitting H eart Rate Post-Dialysis 58 BPM Temperature Pre-Dialysis 97.5 degF Temperature Post -Dialysis 97 degF November 14, 2022 In-Center Hemodialysis Treatment 9859-85-60P79:38:00.000Z 8887-29-19F34:47:03.000Z BP Sitting (Pre-Dialysis) 163/76 mmHg BP Sitting (Post-Dialysis) 119/61 mmHg Concurrent Access: falseAV Graft Upper Arm (Left) Arterial BP Standing (Pre-Dialysis) 135/60 mmHg Sitti ng Heart Rate Post-Dialysis 67 BPM Sitting Heart Rate Pre-Dialysis 91 BPM Temperatu re Post-Dialysis 97.7 degF Standing Heart Rate Pre-Dialysis 96 BPM Temperature Pre-Dialysis 97.9 degF November 11, 2022 In-Center Hemodialysis Treatment 7570-91-58Z93:27:00.000Z 7092-63-67L09:26:21.000Z BP Sitting (Pre-Dialysis) 172/69 mmHg BP Sitting (Post-Dialysis) 121/58 mmHg Concurrent Access: falseAV Graft Upper Arm (Left) Arterial Sitting Heart Rate Pre-Dialysis 86 BPM Sitting H eart Rate Post-Dialysis 75 BPM Temperature Pre-Dialysis 97.4 degF Temperature Post -Dialysis 97 degF November 09, 2022 In-Center Hemodialysis Treatment 3735-89-95C21:38:00.000Z 9149-81-68Y58:43:21.000Z BP Sitting (Pre-Dialysis) 156/83 mmHg BP Sitting (Post-Dialysis) 130/38 mmHg Concurrent Access: falseAV Graft Upper Arm (Left) Arterial Sitting Heart Rate Pre-Dialysis 92 BPM Sitting H eart Rate Post-Dialysis 72 BPM Temperature Pre-Dialysis 97.7 degF Temperature Post -Dialysis 98.1 degF November 07, 2022 In-Center Hemodialysis Treatment 8625-66-33Q62:25:00.000Z 5346-54-13K82:24:21.000Z BP Sitting (Pre-Dialysis) 172/78 mmHg BP Sitting (Post-Dialysis) 124/63 mmHg Concurrent Access: falseAV Graft Upper Arm (Left) Arterial Sitting Heart Rate Pre-Dialysis 97 BPM Sitting H eart Rate Post-Dialysis 78 BPM Temperature Pre-Dialysis 97.7 degF Temperature Post -Dialysis 97.8 degF November 04, 2022 In-Center Hemodialysis Treatment 4706-97-88F45:32:00.000Z 9806-62-60I11:36:53.000Z BP Sitting (Pre-Dialysis) 165/86 mmHg BP Sitting (Post-Dialysis) 126/59 mmHg Concurrent Access: falseAV Graft Upper Arm (Left) Arterial BP Standing (Pre-Dialysis) 172/79 mmHg Sitti ng Heart Rate Post-Dialysis 66 BPM Sitting Heart Rate Pre-Dialysis 91 BPM Temperatu re Post-Dialysis 97.8 degF Standing Heart Rate Pre-Dialysis 84 BPM Temperature Pre-Dialysis 97.7 degF November 02, 2022 In-Center Hemodialysis Treatment 8748-33-37J46:40:00.000Z 1463-60-18W36:43:08.000Z BP Sitting (Pre-Dialysis) 170/85 mmHg BP Sitting (Post-Dialysis) 117/56 mmHg Concurrent Access: falseAV Graft Upper Arm (Left) Arterial Sitting Heart Rate Pre-Dialysis 88 BPM Sitting H eart Rate Post-Dialysis 73 BPM Temperature Pre-Dialysis 97.8 degF Temperature Post -Dialysis 97.8 degF October 31, 2022 In-Center Hemodialysis Treatment 2186-63-08M65:43:00.000Z 5779-87-76K67:44:08.000Z BP Sitting (Pre-Dialysis) 126/52 mmHg BP Sitting (Post-Dialysis) 129/62 mmHg Concurrent Access: falseAV Graft Upper Arm (Left) Arterial Sitting Heart Rate Pre-Dialysis 71 BPM Sitting H eart Rate Post-Dialysis 69 BPM Temperature Pre-Dialysis 97.7 degF Temperature Post -Dialysis 97.7 degF October 28, 2022 In-Center Hemodialysis Treatment 4754-27-19D94:45:00.000Z 2038-69-39L72:45:10.000Z BP Sitting (Pre-Dialysis) 154/82 mmHg BP Sitting (Post-Dialysis) 128/63 mmHg Concurrent Access: falseAV Graft Upper Arm (Left) Arterial BP Standing (Pre-Dialysis) 159/79 mmHg Sitti ng Heart Rate Post-Dialysis 76 BPM Sitting Heart Rate Pre-Dialysis 84 BPM Temperatu re Post-Dialysis 97.8 degF Standing Heart Rate Pre-Dialysis 85 BPM Temperature Pre-Dialysis 97.7 degF October 26, 2022 In-Center Hemodialysis Treatment 2311-62-58I50:39:10.000Z 0827-28-18E97:38:10.000Z BP Sitting (Pre-Dialysis) 115/84 mmHg BP Sitting (Post-Dialysis) 112/82 mmHg Concurrent Access: falseAV Graft Upper Arm (Left) Arterial Sitting Heart Rate Pre-Dialysis 80 BPM BP Standing (Post-Dialysis) 112/82 mmHg Temperature Pre-Dialysis 97.8 degF Sitting Heart Ra te Post-Dialysis 79 BPM Standing Heart Rate Post-Renée lysis 79 BPM Temperature Post-Dialysis 97 .7 degF October 24, 2022 In-Center Hemodialysis Treatment 0577-65-41U39:40:00.000Z 0652-37-02Y76:40:10.000Z BP Sitting (Pre-Dialysis) 162/84 mmHg BP Sitting (Post-Dialysis) 116/76 mmHg Concurrent Access: falseAV Graft Upper Arm (Left) Arterial Sitting Heart Rate Pre-Dialysis 97 BPM Sitting H eart Rate Post-Dialysis 74 BPM Temperature Pre-Dialysis 97.8 degF Temperature Post -Dialysis 97.6 degF October 21, 2022 In-Center Hemodialysis Treatment 8629-58-38P38:17:16.000Z 9749-66-40Q75:19:16.000Z BP Sitting (Pre-Dialysis) 138/73 mmHg BP Sitting (Post-Dialysis) 138/66 mmHg Concurrent Access: falseAV Graft Upper Arm (Left) Arterial Sitting Heart Rate Pre-Dialysis 92 BPM BP Standing (Post-Dialysis) 139/58 mmHg Temperature Pre-Dialysis 97.7 degF Sitting Heart Ra te Post-Dialysis 84 BPM Standing Heart Rate Post-Renée lysis 92 BPM Temperature Post-Dialysis 97 .5 degF October 19, 2022 In-Center Hemodialysis Treatment 0760-35-21E30:07:00.000Z 7114-04-34H76:10:16.000Z BP Sitting (Pre-Dialysis) 160/85 mmHg BP Sitting (Post-Dialysis) 138/67 mmHg Concurrent Access: falseAV Graft Upper Arm (Left) Arterial Sitting Heart Rate Pre-Dialysis 95 BPM Sitting H eart Rate Post-Dialysis 72 BPM Temperature Pre-Dialysis 97.5 degF Temperature Post -Dialysis 97.7 degF October 17, 2022 In-Center Hemodialysis Treatment 4450-89-07V24:39:00.000Z 1185-85-09O39:41:17.000Z BP Sitting (Pre-Dialysis) 129/72 mmHg BP Sitting (Post-Dialysis) 131/61 mmHg Concurrent Access: falseAV Graft Upper Arm (Left) Arterial BP Standing (Pre-Dialysis) 139/70 mmHg Sitti ng Heart Rate Post-Dialysis 73 BPM Sitting Heart Rate Pre-Dialysis 81 BPM Temperatu re Post-Dialysis 97.7 degF Standing Heart Rate Pre-Dialysis 85 BPM Temperature Pre-Dialysis 97.4 degF October 14, 2022 In-Center Hemodialysis Treatment 7040-36-21S91:25:00.000Z 7812-80-78S24:31:48.000Z BP Sitting (Pre-Dialysis) 138/76 mmHg BP Sitting (Post-Dialysis) 146/65 mmHg Concurrent Access: falseAV Graft Upper Arm (Left) Arterial BP Standing (Pre-Dialysis) 155/76 mmHg BP Standing (P ost-Dialysis) 152/71 mmHg Sitting Heart Rate Pre-Dialysis 83 BPM Sitting Heart Rate Post-Dialysis 78 BPM Standing Heart Rate Pre-Dialysis 84 BPM Standing Heart Rate Post-Dialysis 86 BPM Temperature Pre-Dialysis 97.7 degF Temperature Post -Dialysis 98.2 degF October 12, 2022 In-Center Hemodialysis Treatment 3073-25-14I05:23:12.000Z 0901-21-32H30:23:12.000Z BP Sitting (Pre-Dialysis) 150/80 mmHg BP Sitting (Post-Dialysis) 117/68 mmHg Concurrent Access: falseAV Graft Upper Arm (Left) Arterial BP Standing (Pre-Dialysis) 133/77 mmHg BP Standing (P ost-Dialysis) 120/70 mmHg Sitting Heart Rate Pre-Dialysis 92 BPM Sitting Heart Rate Post-Dialysis 70 BPM Standing Heart Rate Pre-Dialysis 90 BPM Standing Heart Rate Post-Dialysis 73 BPM Temperature Pre-Dialysis 97.7 degF Temperature Post -Dialysis 97.6 degF October 10, 2022 In-Center Hemodialysis Treatment 7123-99-45V37:05:00.000Z 7295-35-32C91:58:12.000Z BP Sitting (Pre-Dialysis) 147/78 mmHg BP Sitting (Post-Dialysis) 119/69 mmHg Concurrent Access: falseAV Graft Upper Arm (Left) Arterial BP Standing (Pre-Dialysis) 161/80 mmHg BP Standing (P ost-Dialysis) 125/72 mmHg Sitting Heart Rate Pre-Dialysis 85 BPM Sitting Heart Rate Post-Dialysis 73 BPM Standing Heart Rate Pre-Dialysis 89 BPM Standing Heart Rate Post-Dialysis 81 BPM Temperature Pre-Dialysis 97.7 degF Temperature Post -Dialysis 97.7 degF October 07, 2022 In-Center Hemodialysis Treatment 4376-26-94P47:09:12.000Z 1997-85-75U63:14:12.000Z BP Sitting (Pre-Dialysis) 146/70 mmHg BP Sitting (Post-Dialysis) 138/77 mmHg Concurrent Access: falseAV Graft Upper Arm (Left) Arterial BP Standing (Pre-Dialysis) 160/88 mmHg Sitti ng Heart Rate Post-Dialysis 66 BPM Sitting Heart Rate Pre-Dialysis 76 BPM Temperatu re Post-Dialysis 97.7 degF Standing Heart Rate Pre-Dialysis 88 BPM Temperature Pre-Dialysis 97.7 degF October 05, 2022 In-Center Hemodialysis Treatment 1322-22-83K09:07:00.000Z 4155-28-87Z79:13:12.000Z BP Sitting (Pre-Dialysis) 165/68 mmHg BP Sitting (Post-Dialysis) 130/38 mmHg Concurrent Access: falseAV Graft Upper Arm (Left) Arterial BP Standing (Pre-Dialysis) 158/77 mmHg Sitti ng Heart Rate Post-Dialysis 78 BPM Sitting Heart Rate Pre-Dialysis 90 BPM Temperatu re Post-Dialysis 97.6 degF Standing Heart Rate Pre-Dialysis 88 BPM Temperature Pre-Dialysis 97.7 degF October 03, 2022 In-Center Hemodialysis Treatment 9802-84-22M04:04:12.000Z 6130-31-69O47:51:12.000Z BP Sitting (Pre-Dialysis) 164/78 mmHg BP Sitting (Post-Dialysis) 125/66 mmHg Concurrent Access: falseAV Graft Upper Arm (Left) Arterial BP Standing (Pre-Dialysis) 170/79 mmHg Sitti ng Heart Rate Post-Dialysis 71 BPM Sitting Heart Rate Pre-Dialysis 90 BPM Temperatu re Post-Dialysis 97.8 degF Standing Heart Rate Pre-Dialysis 89 BPM Temperature Pre-Dialysis 97.7 degF DIALYSIS ORDER Dialysis Procedure Orders Type of Dialysis Procedure Order Order Date/Time Observations In-Center Hemodialysis Treatment April Target Weight 144.5 kg Dialysate Flow Rate 500 mL/min Blood Flow Rate 400 mL/min Treatment Time 240 min(total) Max UF Rate 13 mL/kg/hr Base Sodium Dialysate Base Sodium 138 mE q/L dialysate_temp 36.5 C BiCarb Dialysate BiCarbonate 37 mEq/L Access Concurrent No Arterial Access AV Graft (Upper Arm (Left)) Venous Access AV Graft (Upper Arm (Left)) Arterial Needle Display NIPRO, TULIP, 15 G x 1, SHARP , TWIN Venous Needle NIPRO, [place]ULIP, 15G x 1, SHARP , TWIN Dialyzer Nipro Elisio 15H 126 4 [email or web address] Dialysate Bath Potassium Potassium 2 mEq /L Dialysate Bath Calcium Calcium 2.5 mEq/L In-Center Hemodialysis TreatmentFebruary 2024 Observation Value Target Weight 145 kg Dialysate Flow Rate 500 mL/min Blood Flow Rate 400 mL/min Treatment Time 240 min(total) Max UF Rate 13 mL/kg/hr Base Sodium Dialysate Base Sodium 138 mE q/L dialysate_temp 36.5 C BiCarb Dialysate BiCarbonate 37 meq/L Access Concurrent No Arterial Access AV Graft (Upper Arm (Left)) Venous Access AV Graft (Upper Arm (Left)) Arterial Needle Display NIPRO, TULIP, 15 G x 1, SHARP , TWIN Venous Needle NIPRO, TULIP, 15G x 1, SHARP , TWIN Dialyzer Nipro Elisio 15H 126 4 [email or web address] Dialysate Bath Potassium Potassium 2 mEq /L Dialysate Bath Calcium Calcium 2.5 mEq/L Results Adequacy Description Draw Date Result/Unit Status Ref Range Result Comments Creatinine [Mass/volume] in Serum or Plasma 2025-07-16 14:39:22 11.24 mg/dL F 0.55-1.02 LENGTH OF DIALYSIS 2025-07-03 22:11:22 240 min F PATIENT AGE 2025-07-03 22:11:22 65 Years F VT (KT/V TX VOL) 2025-07-03 22:11:22 54.3 L F PRESCRIBED DAYS/WEEK 2025-07-03 22:11:22 3 Day/Wk F VM (KT/V MEAN VOL) 2025-07-03 22:11:22 52.7 F AMPUTATE FACTOR 2025-07-03 22:11:22 0 F KT/V PRESCRIBED 2025-07-03 22:11:22 1.57 F Residual kt/v 2025-07-03 22:11:22 F eKt/V 2025-07-03 22:11:22 1.09 F spKt/V 2025-07-03 22:11:22 1.26 F stdKt/V (DIAL) 2025-07-03 22:11:22 N/A F stdKT/V Total 2025-07-03 22:11:22 N/A F TOTAL HOURS/WEEK DIALYSIS 2025-07-03 22:11:22 11 hrs F URR% 2025-07-03 22:11:22 66 % F DIALYZER FLOW-QD 2025-07-03 22:11:22 500 mL/min F BSA DRAGAN 2025-07-03 22:11:22 2.27 sq m F WEIGHT - POST DAY 1 2025-07-03 22:11:22 144.2 kg F Dialyzer SIDNEY 2025-07-03 22:11:22 1264 Calc F WEIGHT - PRE DAY 1 2025-07-03 22:11:22 147.7 kg F HEIGHT IN INCHES 2025-07-03 22:11:22 60 Inches F WEIGHT (KG) 2025-07-03 22:11:22 144.5 kg F Total Kt/V 2025-07-03 22:11:22 1.26 F nPCR 2025-07-03 22:11:22 0.91 G/KG/D F TBW ([facility]) 2025-07-03 22:11:22 49.75 Liters F Std Renal KT/V 2025-07-03 22:11:22 N/A F BLOOD FLOW-QWB 2025-07-03 22:11:22 449 F CURRENT KRU 2025-07-03 22:11:22 F Dialyzer SIDNEY 2025-07-03 22:11:22 1264 Calc F LENGTH OF DIALYSIS 2025-07-03 22:11:22 240 min F DIALYZER FLOW-QD 2025-07-03 22:11:22 500 mL/min F PATIENT AGE 2025-07-03 22:11:22 65 Years F URR% 2025-07-03 22:11:22 66 % F BSA DRAGAN 2025-07-03 22:11:22 2.27 sq m F WEIGHT - POST DAY 1 2025-07-03 22:11:22 144.2 kg F WEIGHT - PRE DAY 1 2025-07-03 22:11:22 147.7 kg F WEIGHT (KG) 2025-07-03 22:11:22 144.5 kg F PRESCRIBED DAYS/WEEK 2025-07-03 22:11:22 3 Day/Wk F HEIGHT IN INCHES 2025-07-03 22:11:22 60 Inches F VM (KT/V MEAN VOL) 2025-07-03 22:11:22 52.7 F Residual kt/v 2025-07-03 22:11:22 F VT (KT/V TX VOL) 2025-07-03 22:11:22 54.3 L F Total Kt/V 2025-07-03 22:11:22 1.26 F nPCR 2025-07-03 22:11:22 0.91 G/KG/D F KT/V PRESCRIBED 2025-07-03 22:11:22 1.57 F AMPUTATE FACTOR 2025-07-03 22:11:22 0 F TBW ([facility]) 2025-07-03 22:11:22 49.75 Liters F spKt/V 2025-07-03 22:11:22 1.26 F eKt/V 2025-07-03 22:11:22 1.09 F stdKt/V (DIAL) 2025-07-03 22:11:22 N/A F Std Renal KT/V 2025-07-03 22:11:22 N/A F stdKT/V Total 2025-07-03 22:11:22 N/A F TOTAL HOURS/WEEK DIALYSIS 2025-07-03 22:11:22 11 hrs F BLOOD FLOW-QWB 2025-07-03 22:11:22 449 F CURRENT KRU 2025-07-03 22:11:22 F Urea nitrogen [Mass/volume] in Serum or Plasma --post dialysis 2025-07-03 17:55:20 21 mg/dL F 9.0-23.0 Urea nitrogen [Mass/volume] in Serum or Plasma --post dialysis 2025-07-03 17:55:20 21 mg/dL F 9.0-23.0 Urea nitrogen [Mass/volume] in Serum or Plasma 2025-07-03 13:35:21 61 mg/dL F 9.0-23.0 Urea nitrogen [Mass/volume] in Serum or Plasma 2025-07-03 13:35:21 61 mg/dL F 9.0-23.0 Creatinine [Mass/volume] in Serum or Plasma 2025-06-18 16:13:20 11.82 mg/dL F 0.55-1.02 LENGTH OF DIALYSIS 2025-06-11 19:20:14 241 min F Dialyzer SIDNEY 2025-06-11 19:20:14 1264 Calc F PATIENT AGE 2025-06-11 19:20:14 65 Years F WEIGHT - POST DAY 1 2025-06-11 19:20:14 145.1 kg F PRESCRIBED DAYS/WEEK 2025-06-11 19:20:14 3 Day/Wk F VM (KT/V MEAN VOL) 2025-06-11 19:20:14 52.1 F Residual kt/v 2025-06-11 19:20:14 F TBW ([facility]) 2025-06-11 19:20:14 49.98 Liters F BLOOD FLOW-QWB 2025-06-11 19:20:14 399 F Std Renal KT/V 2025-06-11 19:20:14 N/A F DIALYZER FLOW-QD 2025-06-11 19:20:14 500 mL/min F URR% 2025-06-11 19:20:14 65 % F BSA DRAGAN 2025-06-11 19:20:14 2.27 sq m F WEIGHT - PRE DAY 1 2025-06-11 19:20:14 149 kg F HEIGHT IN INCHES 2025-06-11 19:20:14 60 Inches F WEIGHT (KG) 2025-06-11 19:20:14 144.5 kg F VT (KT/V TX VOL) 2025-06-11 19:20:14 51.7 L F Total Kt/V 2025-06-11 19:20:14 1.26 F KT/V PRESCRIBED 2025-06-11 19:20:14 1.58 F nPCR 2025-06-11 19:20:14 1.06 G/KG/D F AMPUTATE FACTOR 2025-06-11 19:20:14 0 F spKt/V 2025-06-11 19:20:14 1.26 F eKt/V 2025-06-11 19:20:14 1.1 F stdKT/V Total 2025-06-11 19:20:14 N/A F stdKt/V (DIAL) 2025-06-11 19:20:14 N/A F CURRENT KRU 2025-06-11 19:20:14 F TOTAL HOURS/WEEK DIALYSIS 2025-06-11 19:20:14 12 hrs F URR% 2025-06-11 19:20:14 65 % F DIALYZER FLOW-QD 2025-06-11 19:20:14 500 mL/min F Dialyzer SIDNEY 2025-06-11 19:20:14 1264 Calc F LENGTH OF DIALYSIS 2025-06-11 19:20:14 241 min F PATIENT AGE 2025-06-11 19:20:14 65 Years F BSA DRAGAN 2025-06-11 19:20:14 2.27 sq m F WEIGHT - PRE DAY 1 2025-06-11 19:20:14 149 kg F WEIGHT - POST DAY 1 2025-06-11 19:20:14 145.1 kg F HEIGHT IN INCHES 2025-06-11 19:20:14 60 Inches F WEIGHT (KG) 2025-06-11 19:20:14 144.5 kg F VT (KT/V TX VOL) 2025-06-11 19:20:14 51.7 L F PRESCRIBED DAYS/WEEK 2025-06-11 19:20:14 3 Day/Wk F VM (KT/V MEAN VOL) 2025-06-11 19:20:14 52.1 F Residual kt/v 2025-06-11 19:20:14 F KT/V PRESCRIBED 2025-06-11 19:20:14 1.58 F Total Kt/V 2025-06-11 19:20:14 1.26 F nPCR 2025-06-11 19:20:14 1.06 G/KG/D F TBW ([facility]) 2025-06-11 19:20:14 49.98 Liters F AMPUTATE FACTOR 2025-06-11 19:20:14 0 F eKt/V 2025-06-11 19:20:14 1.1 F spKt/V 2025-06-11 19:20:14 1.26 F stdKt/V (DIAL) 2025-06-11 19:20:14 N/A F Std Renal KT/V 2025-06-11 19:20:14 N/A F stdKT/V Total 2025-06-11 19:20:14 N/A F TOTAL HOURS/WEEK DIALYSIS 2025-06-11 19:20:14 12 hrs F CURRENT KRU 2025-06-11 19:20:14 F BLOOD FLOW-QWB 2025-06-11 19:20:14 399 F Urea nitrogen [Mass/volume] in Serum or Plasma 2025-06-11 19:18:17 72 mg/dL F 9.0-23.0 Urea nitrogen [Mass/volume] in Serum or Plasma 2025-06-11 19:18:17 72 mg/dL F 9.0-23.0 Urea nitrogen [Mass/volume] in Serum or Plasma --post dialysis 2025-06-11 19:17:13 25 mg/dL F 9.0-23.0 Urea nitrogen [Mass/volume] in Serum or Plasma --post dialysis 2025-06-11 19:17:13 25 mg/dL F 9.0-23.0 URR% 2025-06-05 01:30:04 59 % F DIALYZER FLOW-QD 2025-06-05 01:30:04 500 mL/min F Dialyzer SIDNEY 2025-06-05 01:30:04 1264 Calc F PATIENT AGE 2025-06-05 01:30:04 65 Years F LENGTH OF DIALYSIS 2025-06-05 01:30:04 241 min F BSA DRAGAN 2025-06-05 01:30:04 2.27 sq m F WEIGHT - POST DAY 1 2025-06-05 01:30:04 145.2 kg F WEIGHT - PRE DAY 1 2025-06-05 01:30:04 149.9 kg F HEIGHT IN INCHES 2025-06-05 01:30:04 60 Inches F WEIGHT (KG) 2025-06-05 01:30:04 144.5 kg F PRESCRIBED DAYS/WEEK 2025-06-05 01:30:04 3 Day/Wk F VT (KT/V TX VOL) 2025-06-05 01:30:04 58 L F VM (KT/V MEAN VOL) 2025-06-05 01:30:04 52.2 F Residual kt/v 2025-06-05 01:30:04 F Unable to calculate: Post BUN lab result is unknown KT/V PRESCRIBED 2025-06-05 01:30:04 1.58 F Total Kt/V 2025-06-05 01:30:04 1.1 F nPCR 2025-06-05 01:30:04 1.09 G/KG/D F AMPUTATE FACTOR 2025-06-05 01:30:04 0 F TBW ([facility]) 2025-06-05 01:30:04 50 Liters F spKt/V 2025-06-05 01:30:04 1.1 F eKt/V 2025-06-05 01:30:04 0.96 F Std Renal KT/V 2025-06-05 01:30:04 N/A F stdKt/V (DIAL) 2025-06-05 01:30:04 N/A F stdKT/V Total 2025-06-05 01:30:04 N/A F TOTAL HOURS/WEEK DIALYSIS 2025-06-05 01:30:04 12 hrs F BLOOD FLOW-QWB 2025-06-05 01:30:04 377 F CURRENT KRU 2025-06-05 01:30:04 F Unable to calculate: Post BUN lab result is unknown Urea nitrogen [Mass/volume] in Serum or Plasma --post dialysis 2025-06-05 01:28:12 32 mg/dL F 9.0-23.0 Urea nitrogen [Mass/volume] in Serum or Plasma 2025-06-04 20:59:15 79 mg/dL F 9.0-23.0 WEIGHT (KG) 2025-06-03 16:55:36 144.5 kg F PATIENT AGE 2025-06-03 16:55:35 65 Years F HEIGHT IN INCHES 2025-06-03 16:55:35 60 Inches F AMPUTATE FACTOR 2025-06-03 16:55:35 0 F Creatinine [Mass/volume] in Serum or Plasma 2025-05-21 17:02:15 11.24 mg/dL F 0.55-1.02 Creatinine [Mass/volume] in Serum or Plasma 2025-05-21 17:02:15 11.24 mg/dL F 0.55-1.02 Creatinine [Mass/volume] in Serum or Plasma 2025-05-21 17:02:15 11.24 mg/dL F 0.55-1.02 stdKT/V Total 2025-05-14 20:31:57 N/A F AMPUTATE FACTOR 2025-05-14 20:31:57 0 F Residual kt/v 2025-05-14 20:31:57 F Std Renal KT/V 2025-05-14 20:31:57 N/A F BSA DRAGAN 2025-05-14 20:31:57 2.27 sq m F TOTAL HOURS/WEEK DIALYSIS 2025-05-14 20:31:57 11 hrs F Total Kt/V 2025-05-14 20:31:57 1.26 F Dialyzer SIDNEY 2025-05-14 20:31:57 1264 Calc F WEIGHT - PRE DAY 1 2025-05-14 20:31:57 149 kg F WEIGHT (KG) 2025-05-14 20:31:57 144.5 kg F DIALYZER FLOW-QD 2025-05-14 20:31:57 500 mL/min F HEIGHT IN INCHES 2025-05-14 20:31:57 60 Inches F TBW ([facility]) 2025-05-14 20:31:57 49.8 Liters F VM (KT/V MEAN VOL) 2025-05-14 20:31:57 50.3 F VT (KT/V TX VOL) 2025-05-14 20:31:57 50.3 L F URR% 2025-05-14 20:31:57 64 % F PATIENT AGE 2025-05-14 20:31:57 65 Years F BLOOD FLOW-QWB 2025-05-14 20:31:57 368 F stdKt/V (DIAL) 2025-05-14 20:31:57 N/A F WEIGHT - POST DAY 1 2025-05-14 20:31:57 144.4 kg F eKt/V 2025-05-14 20:31:57 1.09 F CURRENT KRU 2025-05-14 20:31:57 F LENGTH OF DIALYSIS 2025-05-14 20:31:57 241 min F nPCR 2025-05-14 20:31:57 1.01 G/KG/D F spKt/V 2025-05-14 20:31:57 1.26 F KT/V PRESCRIBED 2025-05-14 20:31:57 1.58 F PRESCRIBED DAYS/WEEK 2025-05-14 20:31:57 3 Day/Wk F Residual kt/v 2025-05-14 20:31:57 F VT (KT/V TX VOL) 2025-05-14 20:31:57 50.3 L F Total Kt/V 2025-05-14 20:31:57 1.26 F HEIGHT IN INCHES 2025-05-14 20:31:57 60 Inches F PRESCRIBED DAYS/WEEK 2025-05-14 20:31:57 3 Day/Wk F TOTAL HOURS/WEEK DIALYSIS 2025-05-14 20:31:57 11 hrs F stdKt/V (DIAL) 2025-05-14 20:31:57 N/A F nPCR 2025-05-14 20:31:57 1.01 G/KG/D F URR% 2025-05-14 20:31:57 64 % F BLOOD FLOW-QWB 2025-05-14 20:31:57 368 F spKt/V 2025-05-14 20:31:57 1.26 F PATIENT AGE 2025-05-14 20:31:57 65 Years F WEIGHT (KG) 2025-05-14 20:31:57 144.5 kg F BSA DRAGAN 2025-05-14 20:31:57 2.27 sq m F LENGTH OF DIALYSIS 2025-05-14 20:31:57 241 min F CURRENT KRU 2025-05-14 20:31:57 F TBW ([facility]) 2025-05-14 20:31:57 49.8 Liters F KT/V PRESCRIBED 2025-05-14 20:31:57 1.58 F Std Renal KT/V 2025-05-14 20:31:57 N/A F eKt/V 2025-05-14 20:31:57 1.09 F DIALYZER FLOW-QD 2025-05-14 20:31:57 500 mL/min F stdKT/V Total 2025-05-14 20:31:57 N/A F VM (KT/V MEAN VOL) 2025-05-14 20:31:57 50.3 F AMPUTATE FACTOR 2025-05-14 20:31:57 0 F WEIGHT - POST DAY 1 2025-05-14 20:31:57 144.4 kg F Dialyzer SIDNEY 2025-05-14 20:31:57 1264 Calc F WEIGHT - PRE DAY 1 2025-05-14 20:31:57 149 kg F DIALYZER FLOW-QD 2025-05-14 20:31:57 500 mL/min F URR% 2025-05-14 20:31:57 64 % F Dialyzer SIDNEY 2025-05-14 20:31:57 1264 Calc F LENGTH OF DIALYSIS 2025-05-14 20:31:57 241 min F PATIENT AGE 2025-05-14 20:31:57 65 Years F BSA DRAGAN 2025-05-14 20:31:57 2.27 sq m F WEIGHT - POST DAY 1 2025-05-14 20:31:57 144.4 kg F WEIGHT - PRE DAY 1 2025-05-14 20:31:57 149 kg F HEIGHT IN INCHES 2025-05-14 20:31:57 60 Inches F WEIGHT (KG) 2025-05-14 20:31:57 144.5 kg F PRESCRIBED DAYS/WEEK 2025-05-14 20:31:57 3 Day/Wk F VT (KT/V TX VOL) 2025-05-14 20:31:57 50.3 L F VM (KT/V MEAN VOL) 2025-05-14 20:31:57 50.3 F KT/V PRESCRIBED 2025-05-14 20:31:57 1.58 F Total Kt/V 2025-05-14 20:31:57 1.26 F Residual kt/v 2025-05-14 20:31:57 F nPCR 2025-05-14 20:31:57 1.01 G/KG/D F TBW ([facility]) 2025-05-14 20:31:57 49.8 Liters F AMPUTATE FACTOR 2025-05-14 20:31:57 0 F spKt/V 2025-05-14 20:31:57 1.26 F eKt/V 2025-05-14 20:31:57 1.09 F stdKt/V (DIAL) 2025-05-14 20:31:57 N/A F Std Renal KT/V 2025-05-14 20:31:57 N/A F TOTAL HOURS/WEEK DIALYSIS 2025-05-14 20:31:57 11 hrs F stdKT/V Total 2025-05-14 20:31:57 N/A F BLOOD FLOW-QWB 2025-05-14 20:31:57 368 F CURRENT KRU 2025-05-14 20:31:57 F Urea nitrogen [Mass/volume] in Serum or Plasma 2025-05-14 20:30:16 67 mg/dL F 9.0-23.0 Urea nitrogen [Mass/volume] in Serum or Plasma 2025-05-14 20:30:16 67 mg/dL F 9.0-23.0 Urea nitrogen [Mass/volume] in Serum or Plasma 2025-05-14 20:30:16 67 mg/dL F 9.0-23.0 Urea nitrogen [Mass/volume] in Serum or Plasma --post dialysis 2025-05-14 20:24:10 24 mg/dL F 9.0-23.0 Urea nitrogen [Mass/volume] in Serum or Plasma --post dialysis 2025-05-14 20:24:10 24 mg/dL F 9.0-23.0 Urea nitrogen [Mass/volume] in Serum or Plasma --post dialysis 2025-05-14 20:24:10 24 mg/dL F 9.0-23.0 URR% 2025-05-08 12:58:52 F Recollect - Shipping temp out of range,Unable to Calculate. Urea nitrogen [Mass/volume] in Serum or Plasma --post dialysis 2025-05-08 12:58:16 F Recollect - Shipping temp out of range Urea nitrogen [Mass/volume] in Serum or Plasma 2025-05-08 12:55:00 F Recollect - Shipping temp out of range PATIENT AGE 2025-05-06 16:55:35 65 Years F AMPUTATE FACTOR 2025-05-06 16:55:35 0 F HEIGHT IN INCHES 2025-05-06 16:55:35 60 Inches F WEIGHT (KG) 2025-05-06 16:55:35 144.5 kg F Creatinine [Mass/volume] in Serum or Plasma 2025-04-02 19:04:15 11.26 mg/dL F 0.55-1.02 URR% 2025-03-26 15:05:40 65 % F WEIGHT - PRE DAY 1 2025-03-26 15:05:40 150.5 kg F WEIGHT (KG) 2025-03-26 15:05:40 145 kg F TBW ([facility]) 2025-03-26 15:05:40 50.12 Liters F KT/V PRESCRIBED 2025-03-26 15:05:40 1.51 F Std Renal KT/V 2025-03-26 15:05:40 N/A F TOTAL HOURS/WEEK DIALYSIS 2025-03-26 15:05:40 11 hrs F CURRENT KRU 2025-03-26 15:05:40 F Unable to calculate: Post BUN lab result is unknown BLOOD FLOW-QWB 2025-03-26 15:05:40 394 F DIALYZER FLOW-QD 2025-03-26 15:05:40 500 mL/min F Dialyzer SIDNEY 2025-03-26 15:05:40 1264 Calc F LENGTH OF DIALYSIS 2025-03-26 15:05:40 232 min F PATIENT AGE 2025-03-26 15:05:40 65 Years F WEIGHT - POST DAY 1 2025-03-26 15:05:40 145.7 kg F HEIGHT IN INCHES 2025-03-26 15:05:40 60 Inches F PRESCRIBED DAYS/WEEK 2025-03-26 15:05:40 3 Day/Wk F VT (KT/V TX VOL) 2025-03-26 15:05:40 48.4 L F Residual kt/v 2025-03-26 15:05:40 F Unable to calculate: Post BUN lab result is unknown VM (KT/V MEAN VOL) 2025-03-26 15:05:40 50.1 F Total Kt/V 2025-03-26 15:05:40 1.3 F nPCR 2025-03-26 15:05:40 1.04 G/KG/D F spKt/V 2025-03-26 15:05:40 1.3 F AMPUTATE FACTOR 2025-03-26 15:05:40 0 F eKt/V 2025-03-26 15:05:40 1.12 F stdKt/V (DIAL) 2025-03-26 15:05:40 N/A F stdKT/V Total 2025-03-26 15:05:40 N/A F BSA DRAGAN 2025-03-26 15:05:40 2.28 sq m F URR% 2025-03-26 15:05:40 65 % F Dialyzer SIDNEY 2025-03-26 15:05:40 1264 Calc F DIALYZER FLOW-QD 2025-03-26 15:05:40 500 mL/min F LENGTH OF DIALYSIS 2025-03-26 15:05:40 232 min F PATIENT AGE 2025-03-26 15:05:40 65 Years F BSA DRAGAN 2025-03-26 15:05:40 2.28 sq m F WEIGHT - POST DAY 1 2025-03-26 15:05:40 145.7 kg F WEIGHT - PRE DAY 1 2025-03-26 15:05:40 150.5 kg F WEIGHT (KG) 2025-03-26 15:05:40 145 kg F HEIGHT IN INCHES 2025-03-26 15:05:40 60 Inches F VT (KT/V TX VOL) 2025-03-26 15:05:40 48.4 L F PRESCRIBED DAYS/WEEK 2025-03-26 15:05:40 3 Day/Wk F Residual kt/v 2025-03-26 15:05:40 F Unable to calculate: Post BUN lab result is unknown KT/V PRESCRIBED 2025-03-26 15:05:40 1.51 F VM (KT/V MEAN VOL) 2025-03-26 15:05:40 50.1 F Total Kt/V 2025-03-26 15:05:40 1.3 F nPCR 2025-03-26 15:05:40 1.04 G/KG/D F AMPUTATE FACTOR 2025-03-26 15:05:40 0 F TBW ([facility]) 2025-03-26 15:05:40 50.12 Liters F spKt/V 2025-03-26 15:05:40 1.3 F eKt/V 2025-03-26 15:05:40 1.12 F stdKt/V (DIAL) 2025-03-26 15:05:40 N/A F Std Renal KT/V 2025-03-26 15:05:40 N/A F stdKT/V Total 2025-03-26 15:05:40 N/A F TOTAL HOURS/WEEK DIALYSIS 2025-03-26 15:05:40 11 hrs F BLOOD FLOW-QWB 2025-03-26 15:05:40 394 F CURRENT KRU 2025-03-26 15:05:40 F Unable to calculate: Post BUN lab result is unknown Urea nitrogen [Mass/volume] in Serum or Plasma --post dialysis 2025-03-26 14:59:20 24 mg/dL F 9.0-23.0 Urea nitrogen [Mass/volume] in Serum or Plasma --post dialysis 2025-03-26 14:59:20 24 mg/dL F 9.0-23.0 Urea nitrogen [Mass/volume] in Serum or Plasma 2025-03-26 14:17:23 69 mg/dL F 9.0-23.0 Urea nitrogen [Mass/volume] in Serum or Plasma 2025-03-26 14:17:23 69 mg/dL F 9.0-23.0 PATIENT AGE 2025-02-21 14:37:07 65 Years F VM (KT/V MEAN VOL) 2025-02-21 14:37:07 50.7 F stdKt/V (DIAL) 2025-02-21 14:37:07 N/A F stdKT/V Total 2025-02-21 14:37:07 N/A F nPCR 2025-02-21 14:37:07 1.58 G/KG/D F PRESCRIBED DAYS/WEEK 2025-02-21 14:37:07 3 Day/Wk F TBW ([facility]) 2025-02-21 14:37:07 49.83 Liters F DIALYZER FLOW-QD 2025-02-21 14:37:07 500 mL/min F Std Renal KT/V 2025-02-21 14:37:07 N/A F WEIGHT (KG) 2025-02-21 14:37:07 145 kg F URR% 2025-02-21 14:37:07 65 % F Dialyzer SIDNEY 2025-02-21 14:37:07 1264 Calc F HEIGHT IN INCHES 2025-02-21 14:37:07 60 Inches F CURRENT KRU 2025-02-21 14:37:07 F WEIGHT - PRE DAY 1 2025-02-21 14:37:07 148.1 kg F TOTAL HOURS/WEEK DIALYSIS 2025-02-21 14:37:07 12 hrs F LENGTH OF DIALYSIS 2025-02-21 14:37:07 241 min F KT/V PRESCRIBED 2025-02-21 14:37:07 1.57 F eKt/V 2025-02-21 14:37:07 1.1 F spKt/V 2025-02-21 14:37:07 1.27 F AMPUTATE FACTOR 2025-02-21 14:37:07 0 F WEIGHT - POST DAY 1 2025-02-21 14:37:07 144.5 kg F BSA DRAGAN 2025-02-21 14:37:07 2.28 sq m F Total Kt/V 2025-02-21 14:37:07 1.27 F VT (KT/V TX VOL) 2025-02-21 14:37:07 51.7 L F BLOOD FLOW-QWB 2025-02-21 14:37:07 400 F Residual kt/v 2025-02-21 14:37:07 F URR% 2025-02-21 14:37:07 65 % F DIALYZER FLOW-QD 2025-02-21 14:37:07 500 mL/min F WEIGHT (KG) 2025-02-21 14:37:07 145 kg F WEIGHT - POST DAY 1 2025-02-21 14:37:07 144.5 kg F PRESCRIBED DAYS/WEEK 2025-02-21 14:37:07 3 Day/Wk F Residual kt/v 2025-02-21 14:37:07 F nPCR 2025-02-21 14:37:07 1.58 G/KG/D F spKt/V 2025-02-21 14:37:07 1.27 F eKt/V 2025-02-21 14:37:07 1.1 F stdKt/V (DIAL) 2025-02-21 14:37:07 N/A F BLOOD FLOW-QWB 2025-02-21 14:37:07 400 F CURRENT KRU 2025-02-21 14:37:07 F Dialyzer SIDNEY 2025-02-21 14:37:07 1264 Calc F PATIENT AGE 2025-02-21 14:37:07 65 Years F LENGTH OF DIALYSIS 2025-02-21 14:37:07 241 min F BSA DRAGAN 2025-02-21 14:37:07 2.28 sq m F WEIGHT - PRE DAY 1 2025-02-21 14:37:07 148.1 kg F HEIGHT IN INCHES 2025-02-21 14:37:07 60 Inches F VT (KT/V TX VOL) 2025-02-21 14:37:07 51.7 L F KT/V PRESCRIBED 2025-02-21 14:37:07 1.57 F VM (KT/V MEAN VOL) 2025-02-21 14:37:07 50.7 F AMPUTATE FACTOR 2025-02-21 14:37:07 0 F Total Kt/V 2025-02-21 14:37:07 1.27 F TBW ([facility]) 2025-02-21 14:37:07 49.83 Liters F Std Renal KT/V 2025-02-21 14:37:07 N/A F TOTAL HOURS/WEEK DIALYSIS 2025-02-21 14:37:07 12 hrs F stdKT/V Total 2025-02-21 14:37:07 N/A F Creatinine [Mass/volume] in Serum or Plasma 2025-02-21 14:35:22 10.42 mg/dL F 0.5-1.1 Urea nitrogen [Mass/volume] in Serum or Plasma 2025-02-21 14:35:22 91 mg/dL F 9.0-23.0 Urea nitrogen [Mass/volume] in Serum or Plasma 2025-02-21 14:35:22 91 mg/dL F 9.0-23.0 Creatinine [Mass/volume] in Serum or Plasma 2025-02-21 14:35:22 10.42 mg/dL F 0.5-1.1 Urea nitrogen [Mass/volume] in Serum or Plasma --post dialysis 2025-02-21 13:54:16 32 mg/dL F 9.0-23.0 Urea nitrogen [Mass/volume] in Serum or Plasma --post dialysis 2025-02-21 13:54:16 32 mg/dL F 9.0-23.0 WEIGHT (KG) 2025-01-22 14:09:48 145 kg F HEIGHT IN INCHES 2025-01-22 14:09:48 60 Inches F DIALYZER FLOW-QD 2025-01-22 14:09:48 500 mL/min F WEIGHT - PRE DAY 1 2025-01-22 14:09:48 150 kg F Total Kt/V 2025-01-22 14:09:48 1.3 F KT/V PRESCRIBED 2025-01-22 14:09:48 1.63 F PRESCRIBED DAYS/WEEK 2025-01-22 14:09:48 3 Day/Wk F TOTAL HOURS/WEEK DIALYSIS 2025-01-22 14:09:48 11 hrs F AMPUTATE FACTOR 2025-01-22 14:09:48 0 F VM (KT/V MEAN VOL) 2025-01-22 14:09:48 50.4 F BSA DRAGAN 2025-01-22 14:09:48 2.28 sq m F nPCR 2025-01-22 14:09:48 1.04 G/KG/D F TBW ([facility]) 2025-01-22 14:09:48 49.98 Liters F CURRENT KRU 2025-01-22 14:09:48 F Dialyzer SIDNEY 2025-01-22 14:09:48 1264 Calc F VT (KT/V TX VOL) 2025-01-22 14:09:48 52.3 L F LENGTH OF DIALYSIS 2025-01-22 14:09:48 249 min F stdKT/V Total 2025-01-22 14:09:48 N/A F WEIGHT - POST DAY 1 2025-01-22 14:09:48 145.1 kg F PATIENT AGE 2025-01-22 14:09:48 64 Years F URR% 2025-01-22 14:09:48 65 % F eKt/V 2025-01-22 14:09:48 1.13 F Residual kt/v 2025-01-22 14:09:48 F spKt/V 2025-01-22 14:09:48 1.3 F BLOOD FLOW-QWB 2025-01-22 14:09:48 400 F Std Renal KT/V 2025-01-22 14:09:48 N/A F stdKt/V (DIAL) 2025-01-22 14:09:48 N/A F Urea nitrogen [Mass/volume] in Serum or Plasma 2025-01-22 14:08:18 69 mg/dL F 9.0-23.0 Urea nitrogen [Mass/volume] in Serum or Plasma --post dialysis 2025-01-22 13:40:20 24 mg/dL F 9.0-23.0 Creatinine [Mass/volume] in Serum or Plasma 2025-01-01 17:46:26 10.57 mg/dL F 0.5-1.1 Creatinine [Mass/volume] in Serum or Plasma 2024-12-04 16:08:27 10.22 mg/dL F 0.5-1.1 KT/V PRESCRIBED 2024-11-09 08:36:10 1.57 F BSA DRAGAN 2024-11-09 08:36:10 2.27 sq m F Residual kt/v 2024-11-09 08:36:10 F LENGTH OF DIALYSIS 2024-11-09 08:36:10 240 min F Dialyzer SIDNEY 2024-11-09 08:36:10 1264 Calc F stdKt/V (DIAL) 2024-11-09 08:36:10 N/A F eKt/V 2024-11-09 08:36:10 1.11 F BLOOD FLOW-QWB 2024-11-09 08:36:10 400 F VT (KT/V TX VOL) 2024-11-09 08:36:10 50.9 L F AMPUTATE FACTOR 2024-11-09 08:36:10 0 F HEIGHT IN INCHES 2024-11-09 08:36:10 60 Inches F nPCR 2024-11-09 08:36:10 1.27 G/KG/D F VM (KT/V MEAN VOL) 2024-11-09 08:36:10 48.9 F Std Renal KT/V 2024-11-09 08:36:10 N/A F WEIGHT (KG) 2024-11-09 08:36:10 144.5 kg F URR% 2024-11-09 08:36:10 65 % F PATIENT AGE 2024-11-09 08:36:10 64 Years F spKt/V 2024-11-09 08:36:10 1.28 F WEIGHT - POST DAY 1 2024-11-09 08:36:10 144.9 kg F PRESCRIBED DAYS/WEEK 2024-11-09 08:36:10 3 Day/Wk F CURRENT KRU 2024-11-09 08:36:10 F DIALYZER FLOW-QD 2024-11-09 08:36:10 500 mL/min F Total Kt/V 2024-11-09 08:36:10 1.28 F TOTAL HOURS/WEEK DIALYSIS 2024-11-09 08:36:10 12 hrs F [facility]W ([facility]) 2024-11-09 08:36:10 49.93 Liters F stdKT/V Total 2024-11-09 08:36:10 N/A F WEIGHT - PRE DAY 1 2024-11-09 08:36:10 149.1 kg F Creatinine [Mass/volume] in Serum or Plasma 2024-11-09 08:34:23 10.51 mg/dL F 0.5-1.1 Urea nitrogen [Mass/volume] in Serum or Plasma 2024-11-09 08:34:23 71 mg/dL F 9.0-23.0 Urea nitrogen [Mass/volume] in Serum or Plasma --post dialysis 2024-11-09 08:16:26 25 mg/dL F 9.0-23.0 Total Kt/V 2024-10-04 15:09:16 1.34 F URR% 2024-10-04 15:09:16 67 % F stdKt/V (DIAL) 2024-10-04 15:09:16 N/A F WEIGHT (KG) 2024-10-04 15:09:16 144.5 kg F Std Renal KT/V 2024-10-04 15:09:16 N/A F BLOOD FLOW-QWB 2024-10-04 15:09:16 400 F WEIGHT - PRE DAY 1 2024-10-04 15:09:16 147.4 kg F stdKT/V Total 2024-10-04 15:09:16 N/A F WEIGHT - POST DAY 1 2024-10-04 15:09:16 144 kg F CURRENT KRU 2024-10-04 15:09:16 F BSA DRAGAN 2024-10-04 15:09:16 2.27 sq m F Residual kt/v 2024-10-04 15:09:16 F HEIGHT IN INCHES 2024-10-04 15:09:16 60 Inches F VT (KT/V TX VOL) 2024-10-04 15:09:16 48.6 L F spKt/V 2024-10-04 15:09:16 1.34 F DIALYZER FLOW-QD 2024-10-04 15:09:16 500 mL/min F KT/V PRESCRIBED 2024-10-04 15:09:16 1.58 F LENGTH OF DIALYSIS 2024-10-04 15:09:16 241 min F PATIENT AGE 2024-10-04 15:09:16 64 Years F AMPUTATE FACTOR 2024-10-04 15:09:16 0 F eKt/V 2024-10-04 15:09:16 1.17 F VM (KT/V MEAN VOL) 2024-10-04 15:09:16 48.3 F TBW ([facility]) 2024-10-04 15:09:16 49.7 Liters F TOTAL HOURS/WEEK DIALYSIS 2024-10-04 15:09:16 12 hrs F PRESCRIBED DAYS/WEEK 2024-10-04 15:09:16 3 Day/Wk F nPCR 2024-10-04 15:09:16 1.18 G/KG/D F Dialyzer SIDNEY 2024-10-04 15:09:16 1264 Calc F Urea nitrogen [Mass/volume] in Serum or Plasma --post dialysis 2024-10-04 15:07:24 21 mg/dL F 9.0-23.0 Creatinine [Mass/volume] in Serum or Plasma 2024-10-04 14:27:22 9.92 mg/dL F 0.5-1.1 Urea nitrogen [Mass/volume] in Serum or Plasma 2024-10-04 14:27:22 64 mg/dL F 9.0-23.0 KT/V PRESCRIBED 2024-09-06 14:17:16 1.58 F WEIGHT (KG) 2024-09-06 14:17:16 144.5 kg F BLOOD FLOW-QWB 2024-09-06 14:17:16 380 F Total Kt/V 2024-09-06 14:17:16 1.32 F DIALYZER FLOW-QD 2024-09-06 14:17:16 500 mL/min F PRESCRIBED DAYS/WEEK 2024-09-06 14:17:16 3 Day/Wk F VT (KT/V TX VOL) 2024-09-06 14:17:16 48.7 L F stdKT/V Total 2024-09-06 14:17:16 N/A F Residual kt/v 2024-09-06 14:17:16 F [facility]W ([facility]) 2024-09-06 14:17:16 49.88 Liters F CURRENT KRU 2024-09-06 14:17:16 F VM (KT/V MEAN VOL) 2024-09-06 14:17:16 48.2 F LENGTH OF DIALYSIS 2024-09-06 14:17:16 242 min F WEIGHT - POST DAY 1 2024-09-06 14:17:16 144.7 kg F PATIENT AGE 2024-09-06 14:17:16 64 Years F nPCR 2024-09-06 14:17:16 1.18 G/KG/D F AMPUTATE FACTOR 2024-09-06 14:17:16 0 F Dialyzer SIDNEY 2024-09-06 14:17:16 1264 Calc F BSA DRAGAN 2024-09-06 14:17:16 2.27 sq m F HEIGHT IN INCHES 2024-09-06 14:17:16 60 Inches F stdKt/V (DIAL) 2024-09-06 14:17:16 N/A F eKt/V 2024-09-06 14:17:16 1.15 F Std Renal KT/V 2024-09-06 14:17:16 N/A F TOTAL HOURS/WEEK DIALYSIS 2024-09-06 14:17:16 12 hrs F spKt/V 2024-09-06 14:17:16 1.32 F WEIGHT - PRE DAY 1 2024-09-06 14:17:16 149.5 kg F URR% 2024-09-06 14:17:14 65 % F Creatinine [Mass/volume] in Serum or Plasma 2024-09-06 14:15:23 9.34 mg/dL F 0.5-1.1 Urea nitrogen [Mass/volume] in Serum or Plasma 2024-09-06 14:15:23 63 mg/dL F 9.0-23.0 Urea nitrogen [Mass/volume] in Serum or Plasma --post dialysis 2024-09-06 14:04:19 22 mg/dL F 9.0-23.0 VM (KT/V MEAN VOL) 2024-08-10 01:50:13 48 F HEIGHT IN INCHES 2024-08-10 01:50:13 60 Inches F spKt/V 2024-08-10 01:50:13 1.27 F stdKT/V Total 2024-08-10 01:50:13 N/A F WEIGHT - POST DAY 1 2024-08-10 01:50:13 148.1 kg F DIALYZER FLOW-QD 2024-08-10 01:50:13 480 mL/min F BLOOD FLOW-QWB 2024-08-10 01:50:13 400 F KT/V PRESCRIBED 2024-08-10 01:50:13 1.58 F VT (KT/V TX VOL) 2024-08-10 01:50:13 51.2 L F LENGTH OF DIALYSIS 2024-08-10 01:50:13 241 min F TOTAL HOURS/WEEK DIALYSIS 2024-08-10 01:50:13 12 hrs F URR% 2024-08-10 01:50:13 64 % F nPCR 2024-08-10 01:50:13 1.09 G/KG/D F Total Kt/V 2024-08-10 01:50:13 1.27 F stdKt/V (DIAL) 2024-08-10 01:50:13 N/A F PRESCRIBED DAYS/WEEK 2024-08-10 01:50:13 3 Day/Wk F WEIGHT - PRE DAY 1 2024-08-10 01:50:13 153 kg F CURRENT KRU 2024-08-10 01:50:13 F Dialyzer SIDNEY 2024-08-10 01:50:13 1264 Calc F Std Renal KT/V 2024-08-10 01:50:13 N/A F PATIENT AGE 2024-08-10 01:50:13 64 Years F Residual kt/v 2024-08-10 01:50:13 F TBW ([facility]) 2024-08-10 01:50:13 50.72 Liters F eKt/V 2024-08-10 01:50:13 1.1 F WEIGHT (KG) 2024-08-10 01:50:13 144.5 kg F AMPUTATE FACTOR 2024-08-10 01:50:13 0 F BSA DRAGAN 2024-08-10 01:50:13 2.27 sq m F Urea nitrogen [Mass/volume] in Serum or Plasma --post dialysis 2024-08-10 01:48:22 27 mg/dL F 9.0-23.0 Creatinine [Mass/volume] in Serum or Plasma 2024-08-10 00:43:24 10.19 mg/dL F 0.5-1.1 Urea nitrogen [Mass/volume] in Serum or Plasma 2024-08-10 00:43:24 76 mg/dL F 9.0-23.0 nPCR 2024-07-04 13:53:54 1.29 G/KG/D F URR% 2024-07-04 13:53:54 67 % F stdKt/V (DIAL) 2024-07-04 13:53:54 N/A F TOTAL HOURS/WEEK DIALYSIS 2024-07-04 13:53:54 12 hrs F CURRENT KRU 2024-07-04 13:53:54 F VM (KT/V MEAN VOL) 2024-07-04 13:53:54 46.9 F eKt/V 2024-07-04 13:53:54 1.21 F WEIGHT - POST DAY 1 2024-07-04 13:53:54 145.2 kg F stdKT/V Total 2024-07-04 13:53:54 N/A F KT/V PRESCRIBED 2024-07-04 13:53:54 1.59 F HEIGHT IN INCHES 2024-07-04 13:53:54 60 Inches F Total Kt/V 2024-07-04 13:53:54 1.39 F DIALYZER FLOW-QD 2024-07-04 13:53:54 500 mL/min F Residual kt/v 2024-07-04 13:53:54 F Dialyzer SIDNEY 2024-07-04 13:53:54 1264 Calc F TBW ([facility]) 2024-07-04 13:53:54 50 Liters F AMPUTATE FACTOR 2024-07-04 13:53:54 0 F PATIENT AGE 2024-07-04 13:53:54 64 Years F PRESCRIBED DAYS/WEEK 2024-07-04 13:53:54 3 Day/Wk F WEIGHT (KG) 2024-07-04 13:53:54 144.5 kg F LENGTH OF DIALYSIS 2024-07-04 13:53:54 243 min F spKt/V 2024-07-04 13:53:54 1.39 F BLOOD FLOW-QWB 2024-07-04 13:53:54 400 F BSA DRAG[facility] 2024-07-04 13:53:54 2.27 sq m F Std Renal KT/V 2024-07-04 13:53:54 N/A F VT (KT/V TX VOL) 2024-07-04 13:53:54 47.4 L F WEIGHT - PRE DAY 1 2024-07-04 13:53:54 149.8 kg F Creatinine [Mass/volume] in Serum or Plasma 2024-07-04 13:52:18 9.14 mg/dL F 0.5-1.1 Urea nitrogen [Mass/volume] in Serum or Plasma 2024-07-04 13:52:18 67 mg/dL F 9.0-23.0 Urea nitrogen [Mass/volume] in Serum or Plasma --post dialysis 2024-07-04 13:22:15 22 mg/dL F 9.0-23.0 Residual kt/v 2024-06-13 13:58:10 F AMPUTATE FACTOR 2024-06-13 13:58:10 0 F WEIGHT - PRE DAY 1 2024-06-13 13:58:10 148.5 kg F BSA DRAGAN 2024-06-13 13:58:10 2.27 sq m F TBW ([facility]) 2024-06-13 13:58:10 49.04 Liters F URR% 2024-06-13 13:58:10 65 % F VT (KT/V TX VOL) 2024-06-13 13:58:10 47.1 L F Std Renal KT/V 2024-06-13 13:58:10 N/A F stdKT/V Total 2024-06-13 13:58:10 N/A F Total Kt/V 2024-06-13 13:58:10 1.4 F DIALYZER FLOW-QD 2024-06-13 13:58:10 500 mL/min F Dialyzer SIDNEY 2024-06-13 13:58:10 1264 Calc F CURRENT KRU 2024-06-13 13:58:10 F spKt/V 2024-06-13 13:58:10 1.4 F VM (KT/V MEAN VOL) 2024-06-13 13:58:10 46.7 F KT/V PRESCRIBED 2024-06-13 13:58:10 1.58 F TOTAL HOURS/WEEK DIALYSIS 2024-06-13 13:58:10 12 hrs F PATIENT AGE 2024-06-13 13:58:10 64 Years F LENGTH OF DIALYSIS 2024-06-13 13:58:10 241 min F HEIGHT IN INCHES 2024-06-13 13:58:10 60 Inches F stdKt/V (DIAL) 2024-06-13 13:58:10 N/A F nPCR 2024-06-13 13:58:10 1.09 G/KG/D F PRESCRIBED DAYS/WEEK 2024-06-13 13:58:10 3 Day/Wk F WEIGHT - POST DAY 1 2024-06-13 13:58:10 141.3 kg F eKt/V 2024-06-13 13:58:10 1.21 F BLOOD FLOW-QWB 2024-06-13 13:58:10 400 F WEIGHT (KG) 2024-06-13 13:58:10 144.5 kg F Urea nitrogen [Mass/volume] in Serum or Plasma --post dialysis 2024-06-13 13:56:35 19 mg/dL F 9.0-23.0 Creatinine [Mass/volume] in Serum or Plasma 2024-06-13 13:43:36 8.86 mg/dL F 0.5-1.1 Urea nitrogen [Mass/volume] in Serum or Plasma 2024-06-13 13:43:36 54 mg/dL F 9.0-23.0 URR% 2024-06-06 19:58:40 F Recollect - Shipping temp out of range Urea nitrogen [Mass/volume] in Serum or Plasma --post dialysis 2024-06-06 13:37:10 F Recollect - Shipping temp out of range Creatinine [Mass/volume] in Serum or Plasma 2024-06-06 13:37:10 F Recollect - Shipping temp out of range Urea nitrogen [Mass/volume] in Serum or Plasma 2024-06-06 13:37:10 F Recollect - Shipping temp out of range AMPUTATE FACTOR 2024-06-05 20:18:47 0 F WEIGHT (KG) 2024-06-05 20:18:47 144.5 kg F HEIGHT IN INCHES 2024-06-05 20:18:47 60 Inches F PATIENT AGE 2024-06-05 20:18:47 64 Years F stdKt/V (DIAL) 2024-05-02 21:53:30 N/A F WEIGHT - POST DAY 1 2024-05-02 21:53:30 144.2 kg F AMPUTATE FACTOR 2024-05-02 21:53:30 0 F Residual kt/v 2024-05-02 21:53:30 F DIALYZER FLOW-QD 2024-05-02 21:53:30 500 mL/min F BLOOD FLOW-QWB 2024-05-02 21:53:30 400 F PATIENT AGE 2024-05-02 21:53:30 64 Years F VM (KT/V MEAN VOL) 2024-05-02 21:53:30 46.6 F spKt/V 2024-05-02 21:53:30 1.45 F VT (KT/V TX VOL) 2024-05-02 21:53:30 45.2 L F stdKT/V Total 2024-05-02 21:53:30 N/A F HEIGHT IN INCHES 2024-05-02 21:53:30 60 Inches F WEIGHT (KG) 2024-05-02 21:53:30 144.5 kg F TOTAL HOURS/WEEK DIALYSIS 2024-05-02 21:53:30 12 hrs F BSA DRAG[facility] 2024-05-02 21:53:30 2.27 sq m F CURRENT KRU 2024-05-02 21:53:30 F PRESCRIBED DAYS/WEEK 2024-05-02 21:53:30 3 Day/Wk F eKt/V 2024-05-02 21:53:30 1.25 F Dialyzer SIDNEY 2024-05-02 21:53:30 1264 Calc F Total Kt/V 2024-05-02 21:53:30 1.45 F KT/V PRESCRIBED 2024-05-02 21:53:30 1.58 F WEIGHT - PRE DAY 1 2024-05-02 21:53:30 148.8 kg F LENGTH OF DIALYSIS 2024-05-02 21:53:30 241 min F nPCR 2024-05-02 21:53:30 1.36 G/KG/D F TBW ([facility]) 2024-05-02 21:53:30 49.75 Liters F Std Renal KT/V 2024-05-02 21:53:30 N/A F URR% 2024-05-02 21:53:29 69 % F Urea nitrogen [Mass/volume] in Serum or Plasma --post dialysis 2024-05-02 21:51:40 22 mg/dL F 9.0-23.0 Creatinine [Mass/volume] in Serum or Plasma 2024-05-02 19:24:31 9.95 mg/dL F 0.5-1.1 Urea nitrogen [Mass/volume] in Serum or Plasma 2024-05-02 19:24:31 70 mg/dL F 9.0-23.0 BLOOD FLOW-QWB 2024-04-11 20:46:15 400 F HEIGHT IN INCHES 2024-04-11 20:46:15 60 Inches F WEIGHT - PRE DAY 1 2024-04-11 20:46:15 149.5 kg F stdKT/V Total 2024-04-11 20:46:15 N/A F Total Kt/V 2024-04-11 20:46:15 1.46 F WEIGHT (KG) 2024-04-11 20:46:15 144.5 kg F VT (KT/V TX VOL) 2024-04-11 20:46:15 44.7 L F KT/V PRESCRIBED 2024-04-11 20:46:15 1.57 F TBW ([facility]) 2024-04-11 20:46:15 49.9 Liters F Residual kt/v 2024-04-11 20:46:15 F PRESCRIBED DAYS/WEEK 2024-04-11 20:46:15 3 Day/Wk F BSA DRAG[facility] 2024-04-11 20:46:15 2.27 sq m F eKt/V 2024-04-11 20:46:15 1.26 F LENGTH OF DIALYSIS 2024-04-11 20:46:15 240 min F AMPUTATE FACTOR 2024-04-11 20:46:15 0 F stdKt/V (DIAL) 2024-04-11 20:46:15 N/A F CURRENT KRU 2024-04-11 20:46:15 F DIALYZER FLOW-QD 2024-04-11 20:46:15 500 mL/min F PATIENT AGE 2024-04-11 20:46:15 64 Years F TOTAL HOURS/WEEK DIALYSIS 2024-04-11 20:46:15 12 hrs F URR% 2024-04-11 20:46:15 69 % F Std Renal KT/V 2024-04-11 20:46:15 N/A F spKt/V 2024-04-11 20:46:15 1.46 F VM (KT/V MEAN VOL) 2024-04-11 20:46:15 47.1 F Dialyzer SIDNEY 2024-04-11 20:46:15 1264 Calc F WEIGHT - POST DAY 1 2024-04-11 20:46:15 144.8 kg F nPCR 2024-04-11 20:46:15 1.31 G/KG/D F Urea nitrogen [Mass/volume] in Serum or Plasma --post dialysis 2024-04-11 20:44:42 21 mg/dL F 9.0-23.0 Creatinine [Mass/volume] in Serum or Plasma 2024-04-11 20:38:33 9.88 mg/dL F 0.5-1.1 Urea nitrogen [Mass/volume] in Serum or Plasma 2024-04-11 20:38:33 67 mg/dL F 9.0-23.0 URR% 2024-04-09 07:35:01 F Canceled - Speci men not received 5 days past draw date Urea nitrogen [Mass/volume] in Serum or Plasma --post dialysis 2024-04-09 07:23:30 F Canceled - Speci men not received 5 days past draw date Urea nitrogen [Mass/volume] in Serum or Plasma 2024-04-09 07:23:30 F Canceled - Speci men not received 5 days past draw date Creatinine [Mass/volume] in Serum or Plasma 2024-04-09 07:23:30 F Canceled - Speci men not received 5 days past draw date WEIGHT (KG) 2024-04-03 20:56:52 144.5 kg F PATIENT AGE 2024-04-03 20:56:52 64 Years F AMPUTATE FACTOR 2024-04-03 20:56:52 0 F HEIGHT IN INCHES 2024-04-03 20:56:52 60 Inches F BLOOD FLOW-QWB 2024-03-07 20:46:14 400 F Total Kt/V 2024-03-07 20:46:14 1.32 F VT (KT/V TX VOL) 2024-03-07 20:46:14 48.8 L F KT/V PRESCRIBED 2024-03-07 20:46:14 1.56 F Dialyzer SIDNEY 2024-03-07 20:46:14 1218 Calc F eKt/V 2024-03-07 20:46:14 1.15 F stdKT/V Total 2024-03-07 20:46:14 N/A F LENGTH OF DIALYSIS 2024-03-07 20:46:14 241 min F Std Renal KT/V 2024-03-07 20:46:14 N/A F Residual kt/v 2024-03-07 20:46:14 F DIALYZER FLOW-QD 2024-03-07 20:46:14 482 mL/min F WEIGHT (KG) 2024-03-07 20:46:14 144.5 kg F spKt/V 2024-03-07 20:46:14 1.32 F URR% 2024-03-07 20:46:14 65 % F CURRENT KRU 2024-03-07 20:46:14 F TBW ([facility]) 2024-03-07 20:46:14 50.72 Liters F PRESCRIBED DAYS/WEEK 2024-03-07 20:46:14 3 Day/Wk F TOTAL HOURS/WEEK DIALYSIS 2024-03-07 20:46:14 11 hrs F nPCR 2024-03-07 20:46:14 1.28 G/KG/D F VM (KT/V MEAN VOL) 2024-03-07 20:46:14 47.1 F HEIGHT IN INCHES 2024-03-07 20:46:14 60 Inches F AMPUTATE FACTOR 2024-03-07 20:46:14 0 F stdKt/V (DIAL) 2024-03-07 20:46:14 N/A F WEIGHT - POST DAY 1 2024-03-07 20:46:14 148.1 kg F WEIGHT - PRE DAY 1 2024-03-07 20:46:14 152.8 kg F BSA [facility]AG[facility] 2024-03-07 20:46:14 2.27 sq m F PATIENT AGE 2024-03-07 20:46:14 64 Years F Urea nitrogen [Mass/volume] in Serum or Plasma --post dialysis 2024-03-07 20:44:35 24 mg/dL F 9.0-23.0 Creatinine [Mass/volume] in Serum or Plasma 2024-03-07 20:27:38 8.61 mg/dL F 0.5-1.1 Urea nitrogen [Mass/volume] in Serum or Plasma 2024-03-07 20:27:38 69 mg/dL F 9.0-23.0 BSA [place] 2024-02-01 15:18:55 2.27 sq m F nPCR 2024-02-01 15:18:55 1.4 G/KG/D F DIALYZER FLOW-QD 2024-02-01 15:18:55 500 mL/min F PRESCRIBED DAYS/WEEK 2024-02-01 15:18:55 3 Day/Wk F Dialyzer SIDNEY 2024-02-01 15:18:55 1218 Calc F stdKt/V (DIAL) 2024-02-01 15:18:55 N/A F Std Renal KT/V 2024-02-01 15:18:55 N/A F Total Kt/V 2024-02-01 15:18:55 1.45 F KT/V PRESCRIBED 2024-02-01 15:18:55 1.56 F VM (KT/V MEAN VOL) 2024-02-01 15:18:55 46.5 F TBW ([facility]) 2024-02-01 15:18:55 49.61 Liters F BLOOD FLOW-QWB 2024-02-01 15:18:55 400 F LENGTH OF DIALYSIS 2024-02-01 15:18:55 241 min F WEIGHT - PRE DAY 1 2024-02-01 15:18:55 148.1 kg F HEIGHT IN INCHES 2024-02-01 15:18:55 60 Inches F TOTAL HOURS/WEEK DIALYSIS 2024-02-01 15:18:55 12 hrs F spKt/V 2024-02-01 15:18:55 1.45 F CURRENT KRU 2024-02-01 15:18:55 F PATIENT AGE 2024-02-01 15:18:55 63 Years F stdKT/V Total 2024-02-01 15:18:55 N/A F Residual kt/v 2024-02-01 15:18:55 F WEIGHT - POST DAY 1 2024-02-01 15:18:55 143.6 kg F WEIGHT (KG) 2024-02-01 15:18:55 144.5 kg F eKt/V 2024-02-01 15:18:55 1.25 F VT (KT/V TX VOL) 2024-02-01 15:18:55 44.9 L F AMPUTATE FACTOR 2024-02-01 15:18:55 0 F URR% 2024-02-01 15:18:53 68 % F Urea nitrogen [Mass/volume] in Serum or Plasma --post dialysis 2024-02-01 15:17:36 23 mg/dL F 9.0-23.0 Creatinine [Mass/volume] in Serum or Plasma 2024-02-01 14:47:33 9.81 mg/dL F 0.5-1.1 Urea nitrogen [Mass/volume] in Serum or Plasma 2024-02-01 14:47:33 73 mg/dL F 9.0-23.0 DIALYZER FLOW-QD 2024-01-17 20:03:16 500 mL/min F AMPUTATE FACTOR 2024-01-17 20:03:16 0 F PRESCRIBED DAYS/WEEK 2024-01-17 20:03:16 3 Day/Wk F WEIGHT - PRE DAY 1 2024-01-17 20:03:16 151 kg F VT (KT/V TX VOL) 2024-01-17 20:03:16 48.4 L F TBW ([facility]) 2024-01-17 20:03:16 50.2 Liters F Dialyzer SIDNEY 2024-01-17 20:03:16 1218 Calc F spKt/V 2024-01-17 20:03:16 1.37 F eKt/V 2024-01-17 20:03:16 1.2 F URR% 2024-01-17 20:03:16 66 % F CURRENT KRU 2024-01-17 20:03:16 F stdKt/V (DIAL) 2024-01-17 20:03:16 N/A F nPCR 2024-01-17 20:03:16 1.1 G/KG/D F BSA [facility] 2024-01-17 20:03:16 2.27 sq m F KT/V PRESCRIBED 2024-01-17 20:03:16 1.65 F LENGTH OF DIALYSIS 2024-01-17 20:03:16 255 min F Std Renal KT/V 2024-01-17 20:03:16 N/A F stdKT/V Total 2024-01-17 20:03:16 N/A F TOTAL HOURS/WEEK DIALYSIS 2024-01-17 20:03:16 12 hrs F WEIGHT - POST DAY 1 2024-01-17 20:03:16 146 kg F Residual kt/v 2024-01-17 20:03:16 F HEIGHT IN INCHES 2024-01-17 20:03:16 60 Inches F WEIGHT (KG) 2024-01-17 20:03:16 144.5 kg F BLOOD FLOW-QWB 2024-01-17 20:03:16 370 F VM (KT/V MEAN VOL) 2024-01-17 20:03:16 47 F PATIENT AGE 2024-01-17 20:03:16 63 Years F Total Kt/V 2024-01-17 20:03:16 1.37 F LENGTH OF DIALYSIS 2024-01-17 17:23:25 242 min F PATIENT AGE 2024-01-17 17:23:25 63 Years F spKt/V 2024-01-17 17:23:25 1.35 F DIALYZER FLOW-QD 2024-01-17 17:23:25 500 mL/min F Std Renal KT/V 2024-01-17 17:23:25 N/A F TOTAL HOURS/WEEK DIALYSIS 2024-01-17 17:23:25 12 hrs F AMPUTATE FACTOR 2024-01-17 17:23:25 0 F nPCR 2024-01-17 17:23:25 1.26 G/KG/D F VM (KT/V MEAN VOL) 2024-01-17 17:23:25 46.5 F WEIGHT (KG) 2024-01-17 17:23:25 144.5 kg F BLOOD FLOW-QWB 2024-01-17 17:23:25 400 F stdKt/V (DIAL) 2024-01-17 17:23:25 N/A F BSA DRAGAN 2024-01-17 17:23:25 2.27 sq m F WEIGHT - POST DAY 1 2024-01-17 17:23:25 145.4 kg F stdKT/V Total 2024-01-17 17:23:25 N/A F HEIGHT IN INCHES 2024-01-17 17:23:25 60 Inches F URR% 2024-01-17 17:23:25 66 % F Total Kt/V 2024-01-17 17:23:25 1.35 F Residual kt/v 2024-01-17 17:23:25 F CURRENT KRU 2024-01-17 17:23:25 F VT (KT/V TX VOL) 2024-01-17 17:23:25 48.4 L F eKt/V 2024-01-17 17:23:25 1.17 F PRESCRIBED DAYS/WEEK 2024-01-17 17:23:25 3 Day/Wk F KT/V PRESCRIBED 2024-01-17 17:23:25 1.57 F TBW ([facility]) 2024-01-17 17:23:25 50.05 Liters F WEIGHT - PRE DAY 1 2024-01-17 17:23:25 150.4 kg F Dialyzer SIDNEY 2024-01-17 17:23:25 1218 Calc F Creatinine [Mass/volume] in Serum or Plasma 2024-01-05 03:21:34 8.28 mg/dL F 0.5-1.1 Urea nitrogen [Mass/volume] in Serum or Plasma 2024-01-05 03:21:34 56 mg/dL F 9.0-23.0 Urea nitrogen [Mass/volume] in Serum or Plasma --post dialysis 2024-01-04 18:45:43 19 mg/dL F 9.0-23.0 Urea nitrogen [Mass/volume] in Serum or Plasma --post dialysis 2023-12-07 22:32:02 23 mg/dL F 9.0-23.0 Creatinine [Mass/volume] in Serum or Plasma 2023-12-07 22:01:38 9.43 mg/dL F 0.5-1.1 Urea nitrogen [Mass/volume] in Serum or Plasma 2023-12-07 22:01:38 67 mg/dL F 9.0-23.0 WEIGHT (KG) 2023-11-04 04:46:57 144.5 kg F AMPUTATE FACTOR 2023-11-04 04:46:57 0 F WEIGHT - POST DAY 1 2023-11-04 04:46:57 143.6 kg F Dialyzer SIDNEY 2023-11-04 04:46:57 1218 Calc F Total Kt/V 2023-11-04 04:46:57 1.46 F DIALYZER FLOW-QD 2023-11-04 04:46:57 500 mL/min F Residual kt/v 2023-11-04 04:46:57 F VM (KT/V MEAN VOL) 2023-11-04 04:46:57 45.9 F URR% 2023-11-04 04:46:57 70 % F eKt/V 2023-11-04 04:46:57 1.26 F stdKt/V (DIAL) 2023-11-04 04:46:57 N/A F BLOOD FLOW-QWB 2023-11-04 04:46:57 391 F nPCR 2023-11-04 04:46:57 1.45 G/KG/D F TOTAL HOURS/WEEK DIALYSIS 2023-11-04 04:46:57 12 hrs F KT/V PRESCRIBED 2023-11-04 04:46:57 1.53 F PRESCRIBED DAYS/WEEK 2023-11-04 04:46:57 3 Day/Wk F VT (KT/V TX VOL) 2023-11-04 04:46:57 44.3 L F TBW ([facility]) 2023-11-04 04:46:57 51.21 Liters F WEIGHT - PRE DAY 1 2023-11-04 04:46:57 147.2 kg F LENGTH OF DIALYSIS 2023-11-04 04:46:57 243 min F PATIENT AGE 2023-11-04 04:46:57 63 Years F Std Renal KT/V 2023-11-04 04:46:57 N/A F BSA [facility] 2023-11-04 04:46:57 2.27 sq m F stdKT/V Total 2023-11-04 04:46:57 N/A F CURRENT KRU 2023-11-04 04:46:57 F HEIGHT IN INCHES 2023-11-04 04:46:57 60 Inches F spKt/V 2023-11-04 04:46:57 1.46 F Creatinine [Mass/volume] in Serum or Plasma 2023-11-04 04:43:03 9.54 mg/dL F 0.5-1.1 Urea nitrogen [Mass/volume] in Serum or Plasma 2023-11-04 04:43:03 76 mg/dL F 9.0-23.0 Urea nitrogen [Mass/volume] in Serum or Plasma --post dialysis 2023-11-03 23:58:57 23 mg/dL F 9.0-23.0 DIALYZER FLOW-QD 2023-10-05 15:32:41 500 mL/min F KT/V PRESCRIBED 2023-10-05 15:32:41 1.54 F AMPUTATE FACTOR 2023-10-05 15:32:41 0 F Std Renal KT/V 2023-10-05 15:32:41 N/A F CURRENT KRU 2023-10-05 15:32:41 F PRESCRIBED DAYS/WEEK 2023-10-05 15:32:41 3 Day/Wk F nPCR 2023-10-05 15:32:41 1.31 G/KG/D F VT (KT/V TX VOL) 2023-10-05 15:32:41 53 L F WEIGHT - PRE DAY 1 2023-10-05 15:32:41 148.6 kg F TOTAL HOURS/WEEK DIALYSIS 2023-10-05 15:32:41 11 hrs F LENGTH OF DIALYSIS 2023-10-05 15:32:41 245 min F BLOOD FLOW-QWB 2023-10-05 15:32:41 370 F Total Kt/V 2023-10-05 15:32:41 1.2 F HEIGHT IN INCHES 2023-10-05 15:32:41 60 Inches F URR% 2023-10-05 15:32:41 62 % F Dialyzer SIDNEY 2023-10-05 15:32:41 1218 Calc F WEIGHT (KG) 2023-10-05 15:32:41 144.5 kg F BSA [facility] 2023-10-05 15:32:41 2.27 sq m F VM (KT/V MEAN VOL) 2023-10-05 15:32:41 46.5 F eKt/V 2023-10-05 15:32:41 1.05 F spKt/V 2023-10-05 15:32:41 1.2 F PATIENT AGE 2023-10-05 15:32:41 63 Years F TBW ([facility]) 2023-10-05 15:32:41 51.26 Liters F stdKT/V Total 2023-10-05 15:32:41 N/A F WEIGHT - POST DAY 1 2023-10-05 15:32:41 143.8 kg F stdKt/V (DIAL) 2023-10-05 15:32:41 N/A F Residual kt/v 2023-10-05 15:32:41 F Creatinine [Mass/volume] in Serum or Plasma 2023-10-05 15:31:32 9 mg/dL F 0.5-1.1 Urea nitrogen [Mass/volume] in Serum or Plasma 2023-10-05 15:31:32 76 mg/dL F 9.0-23.0 Urea nitrogen [Mass/volume] in Serum or Plasma --post dialysis 2023-10-05 15:25:41 29 mg/dL F 9.0-23.0 KT/V PRESCRIBED 2023-09-01 00:41:03 1.52 F WEIGHT (KG) 2023-09-01 00:41:03 145.5 kg F PATIENT AGE 2023-09-01 00:41:03 63 Years F nPCR 2023-09-01 00:41:03 1.58 G/KG/D F WEIGHT - PRE DAY 1 2023-09-01 00:41:03 147.3 kg F DIALYZER FLOW-QD 2023-09-01 00:41:03 500 mL/min F TOTAL HOURS/WEEK DIALYSIS 2023-09-01 00:41:03 12 hrs F spKt/V 2023-09-01 00:41:03 1.4 F BLOOD FLOW-QWB 2023-09-01 00:41:03 375 F VT (KT/V TX VOL) 2023-09-01 00:41:03 45.2 L F TBW ([facility]) 2023-09-01 00:41:03 51.3 Liters F CURRENT KRU 2023-09-01 00:41:03 F BSA [facility] 2023-09-01 00:41:03 2.28 sq m F WEIGHT - POST DAY 1 2023-09-01 00:41:03 144 kg F Residual kt/v 2023-09-01 00:41:03 F AMPUTATE FACTOR 2023-09-01 00:41:03 0 F VM (KT/V MEAN VOL) 2023-09-01 00:41:03 44.4 F HEIGHT IN INCHES 2023-09-01 00:41:03 60 Inches F LENGTH OF DIALYSIS 2023-09-01 00:41:03 243 min F stdKT/V Total 2023-09-01 00:41:03 N/A F eKt/V 2023-09-01 00:41:03 1.22 F Total Kt/V 2023-09-01 00:41:03 1.4 F URR% 2023-09-01 00:41:03 69 % F stdKt/V (DIAL) 2023-09-01 00:41:03 N/A F Std Renal KT/V 2023-09-01 00:41:03 N/A F Dialyzer SIDNEY 2023-09-01 00:41:03 1218 Calc F PRESCRIBED DAYS/WEEK 2023-09-01 00:41:03 3 Day/Wk F Urea nitrogen [Mass/volume] in Serum or Plasma --post dialysis 2023-09-01 00:39:36 27 mg/dL F 9.0-23.0 Creatinine [Mass/volume] in Serum or Plasma 2023-08-31 18:15:36 10.91 mg/dL F 0.5-1.1 Urea nitrogen [Mass/volume] in Serum or Plasma 2023-08-31 18:15:36 86 mg/dL F 9.0-23.0 eKt/V 2023-08-03 16:44:03 1.2 F WEIGHT - POST DAY 1 2023-08-03 16:44:03 145.2 kg F Residual kt/v 2023-08-03 16:44:03 F KT/V PRESCRIBED 2023-08-03 16:44:03 1.51 F CURRENT KRU 2023-08-03 16:44:03 F nPCR 2023-08-03 16:44:03 1.55 G/KG/D F WEIGHT - PRE DAY 1 2023-08-03 16:44:03 148.9 kg F LENGTH OF DIALYSIS 2023-08-03 16:44:03 242 min F BSA DRAGAN 2023-08-03 16:44:03 2.28 sq m F stdKT/V Total 2023-08-03 16:44:03 N/A F spKt/V 2023-08-03 16:44:03 1.39 F AMPUTATE FACTOR 2023-08-03 16:44:03 0 F BLOOD FLOW-QWB 2023-08-03 16:44:03 367 F Dialyzer SIDNEY 2023-08-03 16:44:03 1218 Calc F PATIENT AGE 2023-08-03 16:44:03 63 Years F TOTAL HOURS/WEEK DIALYSIS 2023-08-03 16:44:03 11 hrs F DIALYZER FLOW-QD 2023-08-03 16:44:03 500 mL/min F VT (KT/V TX VOL) 2023-08-03 16:44:03 45 L F TBW ([facility]) 2023-08-03 16:44:03 51.6 Liters F Total Kt/V 2023-08-03 16:44:03 1.39 F PRESCRIBED DAYS/WEEK 2023-08-03 16:44:03 3 Day/Wk F Std Renal KT/V 2023-08-03 16:44:03 N/A F WEIGHT (KG) 2023-08-03 16:44:03 145.5 kg F URR% 2023-08-03 16:44:03 68 % F HEIGHT IN INCHES 2023-08-03 16:44:03 60 Inches F VM (KT/V MEAN VOL) 2023-08-03 16:44:03 44.1 F stdKt/V (DIAL) 2023-08-03 16:44:03 N/A F Creatinine [Mass/volume] in Serum or Plasma 2023-08-03 16:42:39 10.76 mg/dL F 0.5-1.1 Urea nitrogen [Mass/volume] in Serum or Plasma 2023-08-03 16:42:39 84 mg/dL F 9.0-23.0 Urea nitrogen [Mass/volume] in Serum or Plasma --post dialysis 2023-08-03 15:40:42 27 mg/dL F 9.0-23.0 Std Renal KT/V 2023-07-06 18:34:45 N/A F BLOOD FLOW-QWB 2023-07-06 18:34:45 400 F stdKT/V Total 2023-07-06 18:34:45 N/A F stdKt/V (DIAL) 2023-07-06 18:34:45 N/A F CURRENT KRU 2023-07-06 18:34:45 F TOTAL HOURS/WEEK DIALYSIS 2023-07-06 18:34:45 12 hrs F WEIGHT - POST DAY 1 2023-07-06 18:34:44 144.1 kg F eKt/V 2023-07-06 18:34:44 1.35 F LENGTH OF DIALYSIS 2023-07-06 18:34:44 238 min F HEIGHT IN INCHES 2023-07-06 18:34:44 60 Inches F Residual kt/v 2023-07-06 18:34:44 F DIALYZER FLOW-QD 2023-07-06 18:34:44 500 mL/min F Total Kt/V 2023-07-06 18:34:44 1.57 F VT (KT/V TX VOL) 2023-07-06 18:34:44 40.8 L F nPCR 2023-07-06 18:34:44 1.59 G/KG/D F BSA DRAGAN 2023-07-06 18:34:44 2.28 sq m F PRESCRIBED DAYS/WEEK 2023-07-06 18:34:44 3 Day/Wk F spKt/V 2023-07-06 18:34:44 1.57 F KT/V PRESCRIBED 2023-07-06 18:34:44 1.49 F PATIENT AGE 2023-07-06 18:34:44 63 Years F Dialyzer SIDNEY 2023-07-06 18:34:44 1218 Calc F WEIGHT - PRE DAY 1 2023-07-06 18:34:44 149 kg F VM (KT/V MEAN VOL) 2023-07-06 18:34:44 43.8 F TBW ([facility]) 2023-07-06 18:34:44 51.33 Liters F WEIGHT (KG) 2023-07-06 18:34:44 145.5 kg F URR% 2023-07-06 18:34:44 71 % F AMPUTATE FACTOR 2023-07-06 18:34:44 0 F Urea nitrogen [Mass/volume] in Serum or Plasma --post dialysis 2023-07-06 18:33:32 23 mg/dL F 9.0-23.0 Creatinine [Mass/volume] in Serum or Plasma 2023-07-06 17:14:36 9.22 mg/dL F 0.5-1.1 Urea nitrogen [Mass/volume] in Serum or Plasma 2023-07-06 17:14:36 79 mg/dL F 9.0-23.0 eKt/V 2023-06-08 15:35:27 1.1 F BLOOD FLOW-QWB 2023-06-08 15:35:27 400 F Total Kt/V 2023-06-08 15:35:27 1.27 F WEIGHT - PRE DAY 1 2023-06-08 15:35:27 150.3 kg F stdKt/V (DIAL) 2023-06-08 15:35:27 N/A F AMPUTATE FACTOR 2023-06-08 15:35:27 0 F KT/V PRESCRIBED 2023-06-08 15:35:27 1.48 F Dialyzer SIDNEY 2023-06-08 15:35:27 1218 Calc F CURRENT KRU 2023-06-08 15:35:27 F Std Renal KT/V 2023-06-08 15:35:27 N/A F URR% 2023-06-08 15:35:27 64 % F VT (KT/V TX VOL) 2023-06-08 15:35:27 50.3 L F TBW ([facility]) 2023-06-08 15:35:27 51.67 Liters F Residual kt/v 2023-06-08 15:35:27 F HEIGHT IN INCHES 2023-06-08 15:35:27 60 Inches F DIALYZER FLOW-QD 2023-06-08 15:35:27 500 mL/min F WEIGHT (KG) 2023-06-08 15:35:27 145.5 kg F nPCR 2023-06-08 15:35:27 1.27 G/KG/D F WEIGHT - POST DAY 1 2023-06-08 15:35:27 145.5 kg F LENGTH OF DIALYSIS 2023-06-08 15:35:27 237 min F PATIENT AGE 2023-06-08 15:35:27 63 Years F BSA DRAGAN 2023-06-08 15:35:27 2.28 sq m F stdKT/V Total 2023-06-08 15:35:27 N/A F PRESCRIBED DAYS/WEEK 2023-06-08 15:35:27 3 Day/Wk F VM (KT/V MEAN VOL) 2023-06-08 15:35:27 44.8 F TOTAL HOURS/WEEK DIALYSIS 2023-06-08 15:35:27 12 F spKt/V 2023-06-08 15:35:27 1.27 F Creatinine [Mass/volume] in Serum or Plasma 2023-06-08 15:33:41 8.92 mg/dL F 0.5-1.1 Urea nitrogen [Mass/volume] in Serum or Plasma 2023-06-08 15:33:41 66 mg/dL F 9.0-23.0 Urea nitrogen [Mass/volume] in Serum or Plasma --post dialysis 2023-06-08 13:01:38 24 mg/dL F 9.0-23.0 AMPUTATE FACTOR 2023-05-04 18:03:26 0 F WEIGHT - PRE DAY 1 2023-05-04 18:03:26 150.9 kg F URR% 2023-05-04 18:03:26 70 % F stdKt/V (DIAL) 2023-05-04 18:03:26 N/A F Total Kt/V 2023-05-04 18:03:26 1.54 F Std Renal KT/V 2023-05-04 18:03:26 N/A F CURRENT KRU 2023-05-04 18:03:26 F WEIGHT (KG) 2023-05-04 18:03:26 145.5 kg F KT/V PRESCRIBED 2023-05-04 18:03:26 1.52 F PATIENT AGE 2023-05-04 18:03:26 63 Years F stdKT/V Total 2023-05-04 18:03:26 N/A F eKt/V 2023-05-04 18:03:26 1.33 F spKt/V 2023-05-04 18:03:26 1.54 F WEIGHT - POST DAY 1 2023-05-04 18:03:26 146.1 kg F Residual kt/v 2023-05-04 18:03:26 F VM (KT/V MEAN VOL) 2023-05-04 18:03:26 43 F nPCR 2023-05-04 18:03:26 1.47 G/KG/D F DIALYZER FLOW-QD 2023-05-04 18:03:26 500 mL/min F LENGTH OF DIALYSIS 2023-05-04 18:03:26 243 min F VT (KT/V TX VOL) 2023-05-04 18:03:26 42.6 L F TOTAL HOURS/WEEK DIALYSIS 2023-05-04 18:03:26 12 F Dialyzer SIDNEY 2023-05-04 18:03:26 1218 Calc F HEIGHT IN INCHES 2023-05-04 18:03:26 60 Inches F TBW ([facility]) 2023-05-04 18:03:26 51.82 Liters F BSA DRAGAN 2023-05-04 18:03:26 2.28 sq m F PRESCRIBED DAYS/WEEK 2023-05-04 18:03:26 3 Day/Wk F BLOOD FLOW-QWB 2023-05-04 18:03:26 400 F Urea nitrogen [Mass/volume] in Serum or Plasma --post dialysis 2023-05-04 18:01:42 22 mg/dL F 9.0-23.0 Creatinine [Mass/volume] in Serum or Plasma 2023-05-04 15:05:46 9.72 mg/dL F 0.5-1.1 Urea nitrogen [Mass/volume] in Serum or Plasma 2023-05-04 15:05:46 74 mg/dL F 9.0-23.0 WEIGHT - PRE DAY 1 2023-04-06 21:43:56 153.3 kg F Total Kt/V 2023-04-06 21:43:56 1.59 F PATIENT AGE 2023-04-06 21:43:56 63 Years F KT/V PRESCRIBED 2023-04-06 21:43:56 1.5 F BSA DRAGAN 2023-04-06 21:43:56 2.28 sq m F nPCR 2023-04-06 21:43:56 1.54 G/KG/D F Dialyzer SIDNEY 2023-04-06 21:43:56 1218 Calc F eKt/V 2023-04-06 21:43:56 1.37 F Residual kt/v 2023-04-06 21:43:56 F WEIGHT - POST DAY 1 2023-04-06 21:43:56 148.3 kg F HEIGHT IN INCHES 2023-04-06 21:43:56 60 Inches F Std Renal KT/V 2023-04-06 21:43:56 N/A F LENGTH OF DIALYSIS 2023-04-06 21:43:56 240 min F stdKt/V (DIAL) 2023-04-06 21:43:56 N/A F CURRENT KRU 2023-04-06 21:43:56 F PRESCRIBED DAYS/WEEK 2023-04-06 21:43:56 3 Day/Wk F VM (KT/V MEAN VOL) 2023-04-06 21:43:56 43.1 F VT (KT/V TX VOL) 2023-04-06 21:43:56 40.8 L F BLOOD FLOW-QWB 2023-04-06 21:43:56 400 F WEIGHT (KG) 2023-04-06 21:43:56 145.5 kg F TOTAL HOURS/WEEK DIALYSIS 2023-04-06 21:43:56 10 F AMPUTATE FACTOR 2023-04-06 21:43:56 0 F DIALYZER FLOW-QD 2023-04-06 21:43:56 500 mL/min F URR% 2023-04-06 21:43:56 71 % F stdKT/V Total 2023-04-06 21:43:56 N/A F spKt/V 2023-04-06 21:43:56 1.59 F TBW ([facility]) 2023-04-06 21:43:56 52.37 Liters F Urea nitrogen [Mass/volume] in Serum or Plasma --post dialysis 2023-04-06 21:39:28 22 mg/dL F 9.0-23.0 Creatinine [Mass/volume] in Serum or Plasma 2023-04-06 21:13:25 9.59 mg/dL F 0.5-1.1 Urea nitrogen [Mass/volume] in Serum or Plasma 2023-04-06 21:13:25 76 mg/dL F 9.0-23.0 PRESCRIBED DAYS/WEEK 2023-03-02 21:58:01 3 Day/Wk F HEIGHT IN INCHES 2023-03-02 21:58:01 60 Inches F URR% 2023-03-02 21:58:01 67 % F nPCR 2023-03-02 21:58:01 1.26 G/KG/D F BLOOD FLOW-QWB 2023-03-02 21:58:01 400 F WEIGHT - PRE DAY 1 2023-03-02 21:58:01 151 kg F Total Kt/V 2023-03-02 21:58:01 1.38 F stdKT/V Total 2023-03-02 21:58:01 N/A F KT/V PRESCRIBED 2023-03-02 21:58:01 1.52 F VT (KT/V TX VOL) 2023-03-02 21:58:01 47.5 L F WEIGHT (KG) 2023-03-02 21:58:01 145.5 kg F PATIENT AGE 2023-03-02 21:58:01 63 Years F stdKt/V (DIAL) 2023-03-02 21:58:01 N/A F DIALYZER FLOW-QD 2023-03-02 21:58:01 500 mL/min F Residual kt/v 2023-03-02 21:58:01 F LENGTH OF DIALYSIS 2023-03-02 21:58:01 243 min F AMPUTATE FACTOR 2023-03-02 21:58:01 0 F VM (KT/V MEAN VOL) 2023-03-02 21:58:01 43.8 F TBW ([facility]) 2023-03-02 21:58:01 51.85 Liters F WEIGHT - POST DAY 1 2023-03-02 21:58:01 146.2 kg F Std Renal KT/V 2023-03-02 21:58:01 N/A F TOTAL HOURS/WEEK DIALYSIS 2023-03-02 21:58:01 12 F spKt/V 2023-03-02 21:58:01 1.38 F eKt/V 2023-03-02 21:58:01 1.2 F Dialyzer SIDNEY 2023-03-02 21:58:01 1218 Calc F BSA DRAGAN 2023-03-02 21:58:01 2.28 sq m F CURRENT KRU 2023-03-02 21:58:01 F Creatinine [Mass/volume] in Serum or Plasma 2023-03-02 16:12:19 9.51 mg/dL F 0.5-1.1 Urea nitrogen [Mass/volume] in Serum or Plasma 2023-03-02 16:12:19 66 mg/dL F 9.0-23.0 Urea nitrogen [Mass/volume] in Serum or Plasma --post dialysis 2023-03-02 15:50:16 22 mg/dL F 9.0-23.0 Std Renal KT/V 2023-02-02 18:52:56 N/A F Total Kt/V 2023-02-02 18:52:56 1.41 F LENGTH OF DIALYSIS 2023-02-02 18:52:56 241 min F stdKt/V (DIAL) 2023-02-02 18:52:56 N/A F PATIENT AGE 2023-02-02 18:52:56 62 Years F VT (KT/V TX VOL) 2023-02-02 18:52:56 46.3 L F nPCR 2023-02-02 18:52:56 1.29 G/KG/D F [facility]W ([facility]) 2023-02-02 18:52:56 51.63 Liters F BLOOD FLOW-QWB 2023-02-02 18:52:56 400 F VM (KT/V MEAN VOL) 2023-02-02 18:52:56 42.6 F WEIGHT (KG) 2023-02-02 18:52:56 145.5 kg F eKt/V 2023-02-02 18:52:56 1.22 F URR% 2023-02-02 18:52:56 67 % F HEIGHT IN INCHES 2023-02-02 18:52:56 60 Inches F DIALYZER FLOW-QD 2023-02-02 18:52:56 500 mL/min F WEIGHT - POST DAY 1 2023-02-02 18:52:56 145.3 kg F Residual kt/v 2023-02-02 18:52:56 F stdKT/V Total 2023-02-02 18:52:56 N/A F AMPUTATE FACTOR 2023-02-02 18:52:56 0 F Dialyzer SIDNEY 2023-02-02 18:52:56 1218 Calc F KT/V PRESCRIBED 2023-02-02 18:52:56 1.51 F PRESCRIBED DAYS/WEEK 2023-02-02 18:52:56 3 Day/Wk F WEIGHT - PRE DAY 1 2023-02-02 18:52:56 150.2 kg F spKt/V 2023-02-02 18:52:56 1.41 F TOTAL HOURS/WEEK DIALYSIS 2023-02-02 18:52:56 12 F BSA DRAGAN 2023-02-02 18:52:56 2.28 sq m F CURRENT KRU 2023-02-02 18:52:56 F Creatinine [Mass/volume] in Serum or Plasma 2023-02-02 18:36:19 8.87 mg/dL F 0.5-1.1 Urea nitrogen [Mass/volume] in Serum or Plasma 2023-02-02 18:36:19 67 mg/dL F 9.0-23.0 Urea nitrogen [Mass/volume] in Serum or Plasma --post dialysis 2023-02-02 17:08:15 22 mg/dL F 9.0-23.0 VT (KT/V TX VOL) 2023-01-05 21:51:53 42.1 L F eKt/V 2023-01-05 21:51:53 1.33 F stdKT/V Total 2023-01-05 21:51:53 N/A F KT/V PRESCRIBED 2023-01-05 21:51:53 1.52 F PATIENT AGE 2023-01-05 21:51:53 62 Years F Std Renal KT/V 2023-01-05 21:51:53 N/A F Residual kt/v 2023-01-05 21:51:53 F BLOOD FLOW-QWB 2023-01-05 21:51:53 400 F nPCR 2023-01-05 21:51:53 1.36 G/KG/D F Total Kt/V 2023-01-05 21:51:53 1.54 F spKt/V 2023-01-05 21:51:53 1.54 F stdKt/V (DIAL) 2023-01-05 21:51:53 N/A F LENGTH OF DIALYSIS 2023-01-05 21:51:53 242 min F VM (KT/V MEAN VOL) 2023-01-05 21:51:53 41.4 F PRESCRIBED DAYS/WEEK 2023-01-05 21:51:53 3 Day/Wk F URR% 2023-01-05 21:51:53 70 % F WEIGHT - POST DAY 1 2023-01-05 21:51:53 144.5 kg F DIALYZER FLOW-QD 2023-01-05 21:51:53 482 mL/min F TOTAL HOURS/WEEK DIALYSIS 2023-01-05 21:51:53 12 F WEIGHT (KG) 2023-01-05 21:51:53 144.5 kg F HEIGHT IN INCHES 2023-01-05 21:51:53 60 Inches F WEIGHT - PRE DAY 1 2023-01-05 21:51:53 149.8 kg F AMPUTATE FACTOR 2023-01-05 21:51:53 0 F TBW ([facility]) 2023-01-05 21:51:53 51.43 Liters F Dialyzer SIDNEY 2023-01-05 21:51:53 1218 Calc F BSA DRAGAN 2023-01-05 21:51:53 2.27 sq m F CURRENT KRU 2023-01-05 21:51:53 F Urea nitrogen [Mass/volume] in Serum or Plasma --post dialysis 2023-01-05 21:49:19 20 mg/dL F 9.0-23.0 Creatinine [Mass/volume] in Serum or Plasma 2023-01-05 20:20:20 9.68 mg/dL F 0.5-1.1 Urea nitrogen [Mass/volume] in Serum or Plasma 2023-01-05 20:20:20 66 mg/dL F 9.0-23.0 spKt/V 2022-12-08 17:31:39 1.62 F stdKT/V Total 2022-12-08 17:31:39 N/A F BLOOD FLOW-QWB 2022-12-08 17:31:39 400 F PATIENT AGE 2022-12-08 17:31:39 62 Years F eKt/V 2022-12-08 17:31:39 1.39 F [facility] ([facility]) 2022-12-08 17:31:39 49.61 Liters F Dialyzer SIDNEY 2022-12-08 17:31:39 1218 Calc F HEIGHT IN INCHES 2022-12-08 17:31:39 60 Inches F stdKt/V (DIAL) 2022-12-08 17:31:39 N/A F KT/V PRESCRIBED 2022-12-08 17:31:39 1.54 F VT (KT/V TX VOL) 2022-12-08 17:31:39 39.5 L F AMPUTATE FACTOR 2022-12-08 17:31:39 0 F WEIGHT (KG) 2022-12-08 17:31:39 144.5 kg F nPCR 2022-12-08 17:31:39 1.41 G/KG/D F TOTAL HOURS/WEEK DIALYSIS 2022-12-08 17:31:39 11 F PRESCRIBED DAYS/WEEK 2022-12-08 17:31:39 3 Day/Wk F WEIGHT - POST DAY 1 2022-12-08 17:31:39 143.6 kg F Residual kt/v 2022-12-08 17:31:39 F WEIGHT - PRE DAY 1 2022-12-08 17:31:39 148.2 kg F URR% 2022-12-08 17:31:39 72 % F VM (KT/V MEAN VOL) 2022-12-08 17:31:39 41.2 F LENGTH OF DIALYSIS 2022-12-08 17:31:39 237 min F Total Kt/V 2022-12-08 17:31:39 1.62 F DIALYZER FLOW-QD 2022-12-08 17:31:39 500 mL/min F Std Renal KT/V 2022-12-08 17:31:39 N/A F CURRENT KRU 2022-12-08 17:31:39 F BSA DRAGAN 2022-12-08 17:31:39 2.27 sq m F Creatinine [Mass/volume] in Serum or Plasma 2022-12-08 17:28:52 10.66 mg/dL F 0.5-1.1 Urea nitrogen [Mass/volume] in Serum or Plasma 2022-12-08 17:28:52 68 mg/dL F 9.0-23.0 Urea nitrogen [Mass/volume] in Serum or Plasma --post dialysis 2022-12-08 17:22:46 19 mg/dL F 9.0-23.0 DIALYZER FLOW-QD 2022-11-03 16:51:56 500 mL/min F WEIGHT - POST DAY 1 2022-11-03 16:51:56 143.6 kg F WEIGHT (KG) 2022-11-03 16:51:56 144.5 kg F Total Kt/V 2022-11-03 16:51:56 1.52 F PRESCRIBED DAYS/WEEK 2022-11-03 16:51:56 3 Day/Wk F AMPUTATE FACTOR 2022-11-03 16:51:56 0 F HEIGHT IN INCHES 2022-11-03 16:51:56 60 Inches F TOTAL HOURS/WEEK DIALYSIS 2022-11-03 16:51:56 11 F PATIENT AGE 2022-11-03 16:51:56 62 Years F LENGTH OF DIALYSIS 2022-11-03 16:51:56 240 min F stdKT/V Total 2022-11-03 16:51:56 N/A F stdKt/V (DIAL) 2022-11-03 16:51:56 N/A F nPCR 2022-11-03 16:51:56 1.46 G/KG/D F KT/V PRESCRIBED 2022-11-03 16:51:56 1.56 F Dialyzer SIDNEY 2022-11-03 16:51:56 1218 Calc F spKt/V 2022-11-03 16:51:56 1.52 F URR% 2022-11-03 16:51:56 70 % F WEIGHT - PRE DAY 1 2022-11-03 16:51:56 147.9 kg F BLOOD FLOW-QWB 2022-11-03 16:51:56 400 F eKt/V 2022-11-03 16:51:56 1.31 F VT (KT/V TX VOL) 2022-11-03 16:51:56 42.6 L F Std Renal KT/V 2022-11-03 16:51:56 N/A F Residual kt/v 2022-11-03 16:51:56 F CURRENT KRU 2022-11-03 16:51:56 F BSA DRAGAN 2022-11-03 16:51:56 2.27 sq m F TBW ([facility]) 2022-11-03 16:51:56 49.61 Liters F VM (KT/V MEAN VOL) 2022-11-03 16:51:56 41.8 F Urea nitrogen [Mass/volume] in Serum or Plasma --post dialysis 2022-11-03 16:48:46 22 mg/dL F 9.0-23.0 Creatinine [Mass/volume] in Serum or Plasma 2022-11-03 15:53:55 10.35 mg/dL F 0.5-1.1 Urea nitrogen [Mass/volume] in Serum or Plasma 2022-11-03 15:53:55 74 mg/dL F 9.0-23.0 Total Kt/V 2022-10-06 21:15:42 1.57 F DIALYZER FLOW-QD 2022-10-06 21:15:42 500 mL/min F LENGTH OF DIALYSIS 2022-10-06 21:15:42 241 min F WEIGHT (KG) 2022-10-06 21:15:42 144.5 kg F WEIGHT - POST DAY 1 2022-10-06 21:15:42 144.6 kg F PRESCRIBED DAYS/WEEK 2022-10-06 21:15:42 3 Day/Wk F spKt/V 2022-10-06 21:15:42 1.57 F stdKt/V (DIAL) 2022-10-06 21:15:42 N/A F BLOOD FLOW-QWB 2022-10-06 21:15:42 400 F WEIGHT - PRE DAY 1 2022-10-06 21:15:42 149.8 kg F PATIENT AGE 2022-10-06 21:15:42 62 Years F TOTAL HOURS/WEEK DIALYSIS 2022-10-06 21:15:42 7 F HEIGHT IN INCHES 2022-10-06 21:15:42 60 Inches F URR% 2022-10-06 21:15:42 71 % F Dialyzer SIDNEY 2022-10-06 21:15:42 1218 Calc F nPCR 2022-10-06 21:15:42 1.33 G/KG/D F stdKT/V Total 2022-10-06 21:15:42 N/A F KT/V PRESCRIBED 2022-10-06 21:15:42 1.56 F AMPUTATE FACTOR 2022-10-06 21:15:42 0 F BSA DRAGAN 2022-10-06 21:15:42 2.27 sq m F Std Renal KT/V 2022-10-06 21:15:42 N/A F CURRENT KRU 2022-10-06 21:15:42 F VT (KT/V TX VOL) 2022-10-06 21:15:42 41.5 L F TBW ([facility]) 2022-10-06 21:15:42 49.85 Liters F Residual kt/v 2022-10-06 21:15:42 F eKt/V 2022-10-06 21:15:42 1.35 F VM (KT/V MEAN VOL) 2022-10-06 21:15:42 41.5 F Urea nitrogen [Mass/volume] in Serum or Plasma --post dialysis 2022-10-06 21:13:41 23 mg/dL F 9.0-23.0 Creatinine [Mass/volume] in Serum or Plasma 2022-10-06 19:56:44 10.71 mg/dL F 0.5-1.1 Urea nitrogen [Mass/volume] in Serum or Plasma 2022-10-06 19:56:44 80 mg/dL F 9.0-23.0 Urea nitrogen [Mass/volume] in Serum or Plasma --post dialysis nPCR spKt/V CURRENT KRU TOTAL HOURS/WEEK DIALYSIS BLOOD FLOW-QWB BSA DRAGAN KT/V PRESCRIBED DIALYZER FLOW-QD LENGTH OF DIALYSIS WEIGHT - PRE DAY 1 Dialyzer SIDNEY VT (KT/V TX VOL) stdKt/V (DIAL) Residual kt/v WEIGHT - POST DAY 1 [facility] ([facility]) eKt/V URR% Std Renal KT/V VM (KT/V MEAN VOL) Total Kt/V PRESCRIBED DAYS/WEEK stdKT/V Total Urea nitrogen [Mass/volume] in Serum or Plasma Dialyzer SIDNEY LENGTH OF DIALYSIS WEIGHT - PRE DAY 1 VT (KT/V TX VOL) Residual kt/v nPCR [facility] ([facility]) stdKT/V Total BLOOD FLOW-QWB CURRENT KRU DIALYZER FLOW-QD BSA DRAGAN WEIGHT - POST DAY 1 PRESCRIBED DAYS/WEEK VM (KT/V MEAN VOL) KT/V PRESCRIBED Total Kt/V spKt/V eKt/V stdKt/V (DIAL) Std Renal KT/V TOTAL HOURS/WEEK DIALYSIS DIALYZER FLOW-QD WEIGHT - PRE DAY 1 BLOOD FLOW-QWB KT/V PRESCRIBED PRESCRIBED DAYS/WEEK VM (KT/V MEAN VOL) stdKt/V (DIAL) Residual kt/v CURRENT KRU eKt/V WEIGHT (KG) WEIGHT - POST DAY 1 spKt/V VT (KT/V TX VOL) Total Kt/V Std Renal KT/V Urea nitrogen [Mass/volume] in Serum or Plasma BSA DRAGAN nPCR HEIGHT IN INCHES TBW ([facility]) PATIENT AGE AMPUTATE FACTOR stdKT/V Total URR% LENGTH OF DIALYSIS TOTAL HOURS/WEEK DIALYSIS Dialyzer SIDNEY CURRENT KRU VT (KT/V TX VOL) Dialyzer SIDNEY [facility] ([facility]) Urea nitrogen [Mass/volume] in Serum or Plasma WEIGHT - POST DAY 1 Total Kt/V VM (KT/V MEAN VOL) stdKT/V Total URR% KT/V PRESCRIBED PRESCRIBED DAYS/WEEK Residual kt/v nPCR Std Renal KT/V HEIGHT IN INCHES spKt/V PATIENT AGE WEIGHT - PRE DAY 1 BLOOD FLOW-QWB WEIGHT (KG) eKt/V BSA DRAGAN LENGTH OF DIALYSIS TOTAL HOURS/WEEK DIALYSIS AMPUTATE FACTOR stdKt/V (DIAL) DIALYZER FLOW-QD Dialyzer SID[facility] DIALYZER FLOW-QD PRESCRIBED DAYS/WEEK TOTAL HOURS/WEEK DIALYSIS WEIGHT - POST DAY 1 WEIGHT - PRE DAY 1 LENGTH OF DIALYSIS BLOOD FLOW-QWB VT (KT/V TX VOL) nPCR stdKt/V (DIAL) spKt/V stdKT/V Total CURRENT KRU Total Kt/V VM (KT/V MEAN VOL) Residual kt/v KT/V PRESCRIBED [facility] ([facility]) BSA DRAGAN eKt/V Std Renal KT/V DIALYZER FLOW-QD LENGTH OF DIALYSIS PRESCRIBED DAYS/WEEK Dialyzer SIDNEY WEIGHT - POST DAY 1 TOTAL HOURS/WEEK DIALYSIS BLOOD FLOW-QWB WEIGHT - PRE DAY 1 CURRENT KRU spKt/V nPCR [facility] ([facility]) eKt/V Std Renal KT/V BSA DRAGAN Residual kt/v KT/V PRESCRIBED VM (KT/V MEAN VOL) stdKt/V (DIAL) stdKT/V Total Total Kt/V VT (KT/V TX VOL) Anemia Description Draw Date Result/Unit Status Ref Range Result Comments HCT CALC HGBX3 2025-07-16 15:05:23 28.8 % F 37.0-47.0 Erythrocyte distribution width [Ratio] by Automated count 2025-07-16 15:04:18 16.2 % F 11.0-15.0 Platelets [#/volume] in Blood by Automated count 2025-07-16 15:04:18 258 x 10^3 cells/uL F 140.0-450.0 MCHC [Mass/volume] by Automated count 2025-07-16 15:04:18 31.3 g/dL F 29.6-35.3 MCH [Entitic mass] by Automated count 2025-07-16 15:04:18 31.9 pg F 25.9-34.2 MCV [Entitic volume] by Automated count 2025-07-16 15:04:18 101.9 fL F 80.0-100.0 Hemoglobin [Mass/volume] in Blood 2025-07-16 15:04:16 9.6 g/dL F 12.0-16.0 Erythrocytes [#/volume] in Blood by Automated count 2025-07-16 15:04:16 3.02 x 10^6 cells/uL F 3.85-5.2 Hematocrit [Volume Fraction] of Blood by Automated count 2025-07-16 15:04:16 30.8 % F 37.0-47.0 HCT CALC HGBX3 2025-07-03 15:22:58 30.9 % F 37.0-47.0 HCT CALC HGBX3 2025-07-03 15:22:58 30.9 % F 37.0-47.0 Hemoglobin [Mass/volume] in Blood 2025-07-03 15:22:13 10.3 g/dL F 12.0-16.0 Hemoglobin [Mass/volume] in Blood 2025-07-03 15:22:13 10.3 g/dL F 12.0-16.0 IRON SATURATION 2025-06-18 20:44:04 24 % F 16.0-46.0 TIBC 2025-06-18 20:44:04 211 ug/dL F 250.0-425.0 Iron [Mass/volume] in Serum or Plasma 2025-06-18 20:41:04 50 ug/dL F 50.0-170.0 Iron binding capacity.unsaturated [Mass/volume] in Serum or Plasma 2025-06-18 20:41:04 161 ug/dL F 80.0-375.0 HCT CALC HGBX3 2025-06-18 18:31:05 30.6 % F 37.0-47.0 Erythrocyte distribution width [Ratio] by Automated count 2025-06-18 18:30:12 17 % F 11.0-15.0 Erythrocytes [#/volume] in Blood by Automated count 2025-06-18 18:30:12 3.17 x 10^6 cells/uL F 3.85-5.2 Hematocrit [Volume Fraction] of Blood by Automated count 2025-06-18 18:30:12 32 % F 37.0-47.0 MCV [Entitic volume] by Automated count 2025-06-18 18:30:12 101 fL F 80.0-100.0 Hemoglobin [Mass/volume] in Blood 2025-06-18 18:30:12 10.2 g/dL F 12.0-16.0 MCH [Entitic mass] by Automated count 2025-06-18 18:30:12 32.2 pg F 25.9-34.2 MCHC [Mass/volume] by Automated count 2025-06-18 18:30:12 31.8 g/dL F 29.6-35.3 Platelets [#/volume] in Blood by Automated count 2025-06-18 18:30:12 275 x 10^3 cells/uL F 140.0-450.0 Ferritin [Mass/volume] in Serum or Plasma 2025-06-18 14:42:14 595 ng/mL F 7.0-271.0 HCT CALC HGBX3 2025-06-04 20:36:32 29.4 % F 37.0-47.0 Hemoglobin [Mass/volume] in Blood 2025-06-04 20:35:16 9.8 g/dL F 12.0-16.0 TIBC 2025-05-22 02:02:22 209 ug/dL F 250.0-425.0 IRON SATURATION 2025-05-22 02:02:22 38 % F 16.0-46.0 TIBC 2025-05-22 02:02:22 209 ug/dL F 250.0-425.0 IRON SATURATION 2025-05-22 02:02:22 38 % F 16.0-46.0 TIBC 2025-05-22 02:02:22 209 ug/dL F 250.0-425.0 IRON SATURATION 2025-05-22 02:02:22 38 % F 16.0-46.0 Iron [Mass/volume] in Serum or Plasma 2025-05-22 01:59:14 79 ug/dL F 50.0-170.0 Iron [Mass/volume] in Serum or Plasma 2025-05-22 01:59:14 79 ug/dL F 50.0-170.0 Iron [Mass/volume] in Serum or Plasma 2025-05-22 01:59:14 79 ug/dL F 50.0-170.0 Iron binding capacity.unsaturated [Mass/volume] in Serum or Plasma 2025-05-22 01:59:09 130 ug/dL F 80.0-375.0 Iron binding capacity.unsaturated [Mass/volume] in Serum or Plasma 2025-05-22 01:59:09 130 ug/dL F 80.0-375.0 Iron binding capacity.unsaturated [Mass/volume] in Serum or Plasma 2025-05-22 01:59:09 130 ug/dL F 80.0-375.0 HCT CALC HGBX3 2025-05-21 22:49:29 30.9 % F 37.0-47.0 HCT CALC HGBX3 2025-05-21 22:49:29 30.9 % F 37.0-47.0 HCT CALC HGBX3 2025-05-21 22:49:29 30.9 % F 37.0-47.0 Erythrocyte distribution width [Ratio] by Automated count 2025-05-21 22:48:24 17.4 % F 11.0-15.0 Erythrocytes [#/volume] in Blood by Automated count 2025-05-21 22:48:24 3.26 x 10^6 cells/uL F 3.85-5.2 Hemoglobin [Mass/volume] in Blood 2025-05-21 22:48:24 10.3 g/dL F 12.0-16.0 MCV [Entitic volume] by Automated count 2025-05-21 22:48:24 102.8 fL F 80.0-100.0 Platelets [#/volume] in Blood by Automated count 2025-05-21 22:48:24 269 x 10^3 cells/uL F 140.0-450.0 Hematocrit [Volume Fraction] of Blood by Automated count 2025-05-21 22:48:24 33.5 % F 37.0-47.0 MCH [Entitic mass] by Automated count 2025-05-21 22:48:24 31.6 pg F 25.9-34.2 MCHC [Mass/volume] by Automated count 2025-05-21 22:48:24 30.8 g/dL F 29.6-35.3 Erythrocyte distribution width [Ratio] by Automated count 2025-05-21 22:48:24 17.4 % F 11.0-15.0 Hematocrit [Volume Fraction] of Blood by Automated count 2025-05-21 22:48:24 33.5 % F 37.0-47.0 Erythrocytes [#/volume] in Blood by Automated count 2025-05-21 22:48:24 3.26 x 10^6 cells/uL F 3.85-5.2 Hemoglobin [Mass/volume] in Blood 2025-05-21 22:48:24 10.3 g/dL F 12.0-16.0 MCV [Entitic volume] by Automated count 2025-05-21 22:48:24 102.8 fL F 80.0-100.0 MCHC [Mass/volume] by Automated count 2025-05-21 22:48:24 30.8 g/dL F 29.6-35.3 MCH [Entitic mass] by Automated count 2025-05-21 22:48:24 31.6 pg F 25.9-34.2 Platelets [#/volume] in Blood by Automated count 2025-05-21 22:48:24 269 x 10^3 cells/uL F 140.0-450.0 Erythrocyte distribution width [Ratio] by Automated count 2025-05-21 22:48:24 17.4 % F 11.0-15.0 Erythrocytes [#/volume] in Blood by Automated count 2025-05-21 22:48:24 3.26 x 10^6 cells/uL F 3.85-5.2 Hematocrit [Volume Fraction] of Blood by Automated count 2025-05-21 22:48:24 33.5 % F 37.0-47.0 Hemoglobin [Mass/volume] in Blood 2025-05-21 22:48:24 10.3 g/dL F 12.0-16.0 MCV [Entitic volume] by Automated count 2025-05-21 22:48:24 102.8 fL F 80.0-100.0 MCH [Entitic mass] by Automated count 2025-05-21 22:48:24 31.6 pg F 25.9-34.2 MCHC [Mass/volume] by Automated count 2025-05-21 22:48:24 30.8 g/dL F 29.6-35.3 Platelets [#/volume] in Blood by Automated count 2025-05-21 22:48:24 269 x 10^3 cells/uL F 140.0-450.0 Ferritin [Mass/volume] in Serum or Plasma 2025-05-21 21:45:19 805 ng/mL F 10.0-291.0 Ferritin [Mass/volume] in Serum or Plasma 2025-05-21 21:45:19 805 ng/mL F 10.0-291.0 Ferritin [Mass/volume] in Serum or Plasma 2025-05-21 21:45:19 805 ng/mL F 10.0-291.0 HCT CALC HGBX3 2025-05-08 13:02:28 see comments F 37.0-47.0 Unable to Calculate. Hemoglobin [Mass/volume] in Blood 2025-05-08 13:01:30 F Recollect - Shipping temp out of range HCT CALC HGBX3 2025-04-16 13:30:15 32.1 % F 37.0-47.0 HCT CALC HGBX3 2025-04-16 13:30:15 32.1 % F 37.0-47.0 Hemoglobin [Mass/volume] in Blood 2025-04-16 13:29:14 10.7 g/dL F 12.0-16.0 Hemoglobin [Mass/volume] in Blood 2025-04-16 13:29:14 10.7 g/dL F 12.0-16.0 HCT CALC HGBX3 2025-04-03 13:34:22 32.7 % F 37.0-47.0 MCH [Entitic mass] by Automated count 2025-04-03 13:33:15 31.6 pg F 25.9-34.2 Erythrocyte distribution width [Ratio] by Automated count 2025-04-03 13:33:14 17.2 % F 11.0-15.0 Hematocrit [Volume Fraction] of Blood by Automated count 2025-04-03 13:33:14 35.9 % F 37.0-47.0 MCV [Entitic volume] by Automated count 2025-04-03 13:33:14 104 fL F 80.0-100.0 MCHC [Mass/volume] by Automated count 2025-04-03 13:33:14 30.4 g/dL F 29.6-35.3 Hemoglobin [Mass/volume] in Blood 2025-04-03 13:33:14 10.9 g/dL F 12.0-16.0 Platelets [#/volume] in Blood by Automated count 2025-04-03 13:33:14 270 x 10^3 cells/uL F 140.0-450.0 Erythrocytes [#/volume] in Blood by Automated count 2025-04-03 13:33:14 3.45 x 10^6 cells/uL F 3.85-5.2 TIBC 2025-04-03 07:52:31 212 ug/dL F 250.0-425.0 IRON SATURATION 2025-04-03 07:52:31 38 % F 16.0-46.0 Iron [Mass/volume] in Serum or Plasma 2025-04-03 07:28:19 81 ug/dL F 50.0-170.0 Iron binding capacity.unsaturated [Mass/volume] in Serum or Plasma 2025-04-03 00:02:58 131 ug/dL F 80.0-375.0 Ferritin [Mass/volume] in Serum or Plasma 2025-04-02 22:51:22 822 ng/mL F 10.0-291.0 Ferritin [Mass/volume] in Serum or Plasma 2025-03-26 14:46:24 570 ng/mL F 10.0-291.0 Ferritin [Mass/volume] in Serum or Plasma 2025-03-26 14:46:24 570 ng/mL F 10.0-291.0 HCT CALC HGBX3 2025-03-21 16:41:52 32.1 % F 37.0-47.0 Hemoglobin [Mass/volume] in Blood 2025-03-21 16:41:08 10.7 g/dL F 12.0-16.0 IRON SATURATION 2025-02-21 18:11:16 29 % F 16.0-46.0 TIBC 2025-02-21 18:11:16 223 ug/dL F 250.0-425.0 IRON SATURATION 2025-02-21 18:11:16 29 % F 16.0-46.0 TIBC 2025-02-21 18:11:16 223 ug/dL F 250.0-425.0 Iron [Mass/volume] in Serum or Plasma 2025-02-21 18:00:04 64 ug/dL F 50.0-170.0 Iron binding capacity.unsaturated [Mass/volume] in Serum or Plasma 2025-02-21 18:00:04 159 ug/dL F 80.0-375.0 Iron binding capacity.unsaturated [Mass/volume] in Serum or Plasma 2025-02-21 18:00:04 159 ug/dL F 80.0-375.0 Iron [Mass/volume] in Serum or Plasma 2025-02-21 18:00:04 64 ug/dL F 50.0-170.0 HCT CALC HGBX3 2025-02-21 13:31:50 30.6 % F 37.0-47.0 HCT CALC HGBX3 2025-02-21 13:31:50 30.6 % F 37.0-47.0 Erythrocyte distribution width [Ratio] by Automated count 2025-02-21 13:31:09 16.6 % F 11.0-15.0 Hemoglobin [Mass/volume] in Blood 2025-02-21 13:31:09 10.2 g/dL F 12.0-16.0 Platelets [#/volume] in Blood by Automated count 2025-02-21 13:31:09 281 x 10^3 cells/uL F 140.0-450.0 MCH [Entitic mass] by Automated count 2025-02-21 13:31:09 31.5 pg F 25.9-34.2 MCHC [Mass/volume] by Automated count 2025-02-21 13:31:09 31.3 g/dL F 29.6-35.3 Erythrocytes [#/volume] in Blood by Automated count 2025-02-21 13:31:09 3.22 x 10^6 cells/uL F 3.85-5.2 Hematocrit [Volume Fraction] of Blood by Automated count 2025-02-21 13:31:09 32.5 % F 37.0-47.0 MCV [Entitic volume] by Automated count 2025-02-21 13:31:09 100.8 fL F 80.0-100.0 Erythrocytes [#/volume] in Blood by Automated count 2025-02-21 13:31:09 3.22 x 10^6 cells/uL F 3.85-5.2 Erythrocyte distribution width [Ratio] by Automated count 2025-02-21 13:31:09 16.6 % F 11.0-15.0 Hemoglobin [Mass/volume] in Blood 2025-02-21 13:31:09 10.2 g/dL F 12.0-16.0 MCV [Entitic volume] by Automated count 2025-02-21 13:31:09 100.8 fL F 80.0-100.0 MCH [Entitic mass] by Automated count 2025-02-21 13:31:09 31.5 pg F 25.9-34.2 MCHC [Mass/volume] by Automated count 2025-02-21 13:31:09 31.3 g/dL F 29.6-35.3 Platelets [#/volume] in Blood by Automated count 2025-02-21 13:31:09 281 x 10^3 cells/uL F 140.0-450.0 Hematocrit [Volume Fraction] of Blood by Automated count 2025-02-21 13:31:09 32.5 % F 37.0-47.0 Ferritin [Mass/volume] in Serum or Plasma 2025-02-21 13:14:20 F CANCELED - TEST CANCELED Ferritin [Mass/volume] in Serum or Plasma 2025-02-21 13:14:20 F CANCELED - TEST CANCELED HCT CALC HGBX3 2025-01-15 14:39:55 28.2 % F 37.0-47.0 Hemoglobin [Mass/volume] in Blood 2025-01-15 14:39:16 9.4 g/dL F 12.0-16.0 IRON SATURATION 2025-01-02 07:52:03 26 % F 16.0-46.0 TIBC 2025-01-02 07:52:03 227 ug/dL F 250.0-425.0 Ferritin [Mass/volume] in Serum or Plasma 2025-01-02 07:26:06 837 ng/mL F 10.0-291.0 Iron [Mass/volume] in Serum or Plasma 2025-01-02 07:06:00 58 ug/dL F 50.0-170.0 Iron binding capacity.unsaturated [Mass/volume] in Serum or Plasma 2025-01-02 07:06:00 169 ug/dL F 80.0-375.0 HCT CALC HGBX3 2025-01-01 21:19:03 27.9 % F 37.0-47.0 Hemoglobin [Mass/volume] in Blood 2025-01-01 21:18:18 9.3 g/dL F 12.0-16.0 Erythrocyte distribution width [Ratio] by Automated count 2025-01-01 21:18:18 16.4 % F 11.0-15.0 Platelets [#/volume] in Blood by Automated count 2025-01-01 21:18:18 268 x 10^3 cells/uL F 140.0-450.0 MCH [Entitic mass] by Automated count 2025-01-01 21:18:18 31.5 pg F 25.9-34.2 Erythrocytes [#/volume] in Blood by Automated count 2025-01-01 21:18:18 2.96 x 10^6 cells/uL F 3.85-5.2 MCHC [Mass/volume] by Automated count 2025-01-01 21:18:18 30.8 g/dL F 29.6-35.3 Hematocrit [Volume Fraction] of Blood by Automated count 2025-01-01 21:18:18 30.2 % F 37.0-47.0 MCV [Entitic volume] by Automated count 2025-01-01 21:18:18 102.2 fL F 80.0-100.0 IRON SATURATION 2024-12-05 09:36:56 34 % F 16.0-46.0 TIBC 2024-12-05 09:36:56 196 ug/dL F 250.0-425.0 Iron [Mass/volume] in Serum or Plasma 2024-12-05 07:02:57 67 ug/dL F 50.0-170.0 Iron binding capacity.unsaturated [Mass/volume] in Serum or Plasma 2024-12-05 07:02:57 129 ug/dL F 80.0-375.0 Ferritin [Mass/volume] in Serum or Plasma 2024-12-05 03:44:44 1094 ng/mL F 10.0-291.0 HCT CALC HGBX3 2024-12-04 16:32:17 27.9 % F 37.0-47.0 Erythrocyte distribution width [Ratio] by Automated count 2024-12-04 16:31:10 15.9 % F 11.0-15.0 Hemoglobin [Mass/volume] in Blood 2024-12-04 16:31:10 9.3 g/dL F 12.0-16.0 Platelets [#/volume] in Blood by Automated count 2024-12-04 16:31:10 321 x 10^3 cells/uL F 140.0-450.0 MCH [Entitic mass] by Automated count 2024-12-04 16:31:10 32.3 pg F 25.9-34.2 MCHC [Mass/volume] by Automated count 2024-12-04 16:31:10 31.4 g/dL F 29.6-35.3 Erythrocytes [#/volume] in Blood by Automated count 2024-12-04 16:31:10 2.87 x 10^6 cells/uL F 3.85-5.2 Hematocrit [Volume Fraction] of Blood by Automated count 2024-12-04 16:31:10 29.6 % F 37.0-47.0 MCV [Entitic volume] by Automated count 2024-12-04 16:31:10 103 fL F 80.0-100.0 HCT CALC HGBX3 2024-11-09 17:40:27 30.9 % F 37.0-47.0 Erythrocyte distribution width [Ratio] by Automated count 2024-11-09 17:39:23 16.8 % F 11.0-15.0 Hemoglobin [Mass/volume] in Blood 2024-11-09 17:39:23 10.3 g/dL F 12.0-16.0 Platelets [#/volume] in Blood by Automated count 2024-11-09 17:39:23 264 x 10^3 cells/uL F 140.0-450.0 MCH [Entitic mass] by Automated count 2024-11-09 17:39:23 30.7 pg F 25.9-34.2 MCHC [Mass/volume] by Automated count 2024-11-09 17:39:23 29.4 g/dL F 29.6-35.3 Erythrocytes [#/volume] in Blood by Automated count 2024-11-09 17:39:23 3.36 x 10^6 cells/uL F 3.85-5.2 Hematocrit [Volume Fraction] of Blood by Automated count 2024-11-09 17:39:23 35 % F 37.0-47.0 MCV [Entitic volume] by Automated count 2024-11-09 17:39:23 104.3 fL F 80.0-100.0 Ferritin [Mass/volume] in Serum or Plasma 2024-10-05 07:40:47 1070 ng/mL F 10.0-291.0 IRON SATURATION 2024-10-04 21:15:13 34 % F 16.0-46.0 TIBC 2024-10-04 21:15:13 184 ug/dL F 250.0-425.0 Iron [Mass/volume] in Serum or Plasma 2024-10-04 21:07:30 62 ug/dL F 50.0-170.0 Iron binding capacity.unsaturated [Mass/volume] in Serum or Plasma 2024-10-04 21:07:30 122 ug/dL F 80.0-375.0 HCT CALC HGBX3 2024-10-04 15:33:40 32.4 % F 37.0-47.0 Erythrocyte distribution width [Ratio] by Automated count 2024-10-04 15:32:17 18 % F 11.0-15.0 Hemoglobin [Mass/volume] in Blood 2024-10-04 15:32:17 10.8 g/dL F 12.0-16.0 Platelets [#/volume] in Blood by Automated count 2024-10-04 15:32:17 286 x 10^3 cells/uL F 140.0-450.0 MCH [Entitic mass] by Automated count 2024-10-04 15:32:17 31.3 pg F 25.9-34.2 Erythrocytes [#/volume] in Blood by Automated count 2024-10-04 15:32:17 3.47 x 10'6 cells/uL F 3.85-5.2 MCHC [Mass/volume] by Automated count 2024-10-04 15:32:17 31 g/dL F 29.6-35.3 Hematocrit [Volume Fraction] of Blood by Automated count 2024-10-04 15:32:17 34.9 % F 37.0-47.0 MCV [Entitic volume] by Automated count 2024-10-04 15:32:17 100.7 fL F 80.0-100.0 IRON SATURATION 2024-09-07 04:02:52 30 % F 16.0-46.0 TIBC 2024-09-07 04:02:52 200 ug/dL F 250.0-425.0 Iron [Mass/volume] in Serum or Plasma 2024-09-07 03:59:39 60 ug/dL F 50.0-170.0 Iron binding capacity.unsaturated [Mass/volume] in Serum or Plasma 2024-09-07 03:59:39 140 ug/dL F 80.0-375.0 Ferritin [Mass/volume] in Serum or Plasma 2024-09-07 02:17:09 1254 ng/mL F 10.0-291.0 HCT CALC HGBX3 2024-09-07 01:05:02 32.7 % F 37.0-47.0 Erythrocyte distribution width [Ratio] by Automated count 2024-09-07 01:04:23 16.3 % F 11.0-15.0 Hemoglobin [Mass/volume] in Blood 2024-09-07 01:04:23 10.9 g/dL F 12.0-16.0 Platelets [#/volume] in Blood by Automated count 2024-09-07 01:04:23 313 x 10^3 cells/uL F 140.0-450.0 MCH [Entitic mass] by Automated count 2024-09-07 01:04:23 31.8 pg F 25.9-34.2 MCHC [Mass/volume] by Automated count 2024-09-07 01:04:23 30.8 g/dL F 29.6-35.3 Erythrocytes [#/volume] in Blood by Automated count 2024-09-07 01:04:23 3.42 x 10'6 cells/uL F 3.85-5.2 Hematocrit [Volume Fraction] of Blood by Automated count 2024-09-07 01:04:23 35.3 % F 37.0-47.0 MCV [Entitic volume] by Automated count 2024-09-07 01:04:23 103 fL F 80.0-100.0 HCT CALC HGBX3 2024-08-10 19:05:14 32.1 % F 37.0-47.0 Hemoglobin [Mass/volume] in Blood 2024-08-10 19:04:16 10.7 g/dL F 12.0-16.0 Erythrocyte distribution width [Ratio] by Automated count 2024-08-10 19:04:16 15.8 % F 11.0-15.0 Platelets [#/volume] in Blood by Automated count 2024-08-10 19:04:16 328 x 10^3 cells/uL F 140.0-450.0 MCH [Entitic mass] by Automated count 2024-08-10 19:04:16 32 pg F 25.9-34.2 MCHC [Mass/volume] by Automated count 2024-08-10 19:04:16 30.4 g/dL F 29.6-35.3 Erythrocytes [#/volume] in Blood by Automated count 2024-08-10 19:04:16 3.34 x 10'6 cells/uL F 3.85-5.2 Hematocrit [Volume Fraction] of Blood by Automated count 2024-08-10 19:04:16 35.3 % F 37.0-47.0 MCV [Entitic volume] by Automated count 2024-08-10 19:04:16 105.5 fL F 80.0-100.0 IRON SATURATION 2024-08-10 07:45:59 30 % F 16.0-46.0 TIBC 2024-08-10 07:45:59 207 ug/dL F 250.0-425.0 Iron [Mass/volume] in Serum or Plasma 2024-08-10 07:26:43 62 ug/dL F 50.0-170.0 Iron binding capacity.unsaturated [Mass/volume] in Serum or Plasma 2024-08-10 07:26:43 145 ug/dL F 80.0-375.0 Ferritin [Mass/volume] in Serum or Plasma 2024-08-10 07:26:23 1068 ng/mL F 10.0-291.0 Ferritin [Mass/volume] in Serum or Plasma 2024-07-05 06:53:14 1251 ng/mL F 10.0-291.0 IRON SATURATION 2024-07-04 16:18:49 32 % F 16.0-46.0 TIBC 2024-07-04 16:18:49 193 ug/dL F 250.0-425.0 Iron [Mass/volume] in Serum or Plasma 2024-07-04 16:17:52 61 ug/dL F 50.0-170.0 Iron binding capacity.unsaturated [Mass/volume] in Serum or Plasma 2024-07-04 16:17:52 132 ug/dL F 80.0-375.0 HCT CALC HGBX3 2024-07-04 16:17:51 31.2 % F 37.0-47.0 MCH [Entitic mass] by Automated count 2024-07-04 16:17:10 31.6 pg F 25.9-34.2 Erythrocyte distribution width [Ratio] by Automated count 2024-07-04 16:17:09 16.4 % F 11.0-15.0 Hemoglobin [Mass/volume] in Blood 2024-07-04 16:17:09 10.4 g/dL F 12.0-16.0 Platelets [#/volume] in Blood by Automated count 2024-07-04 16:17:09 292 x 10^3 cells/uL F 140.0-450.0 MCHC [Mass/volume] by Automated count 2024-07-04 16:17:09 30.9 g/dL F 29.6-35.3 Erythrocytes [#/volume] in Blood by Automated count 2024-07-04 16:17:09 3.29 x 10'6 cells/uL F 3.85-5.2 Hematocrit [Volume Fraction] of Blood by Automated count 2024-07-04 16:17:09 33.7 % F 37.0-47.0 MCV [Entitic volume] by Automated count 2024-07-04 16:17:09 102.3 fL F 80.0-100.0 Ferritin [Mass/volume] in Serum or Plasma 2024-06-14 03:02:32 1016 ng/mL F 10.0-291.0 IRON SATURATION 2024-06-13 16:18:01 26 % F 16.0-46.0 TIBC 2024-06-13 16:18:01 196 ug/dL F 250.0-425.0 Iron [Mass/volume] in Serum or Plasma 2024-06-13 16:16:50 51 ug/dL F 50.0-170.0 Iron binding capacity.unsaturated [Mass/volume] in Serum or Plasma 2024-06-13 16:16:50 145 ug/dL F 80.0-375.0 HCT CALC HGBX3 2024-06-13 15:31:28 30.9 % F 37.0-47.0 Erythrocyte distribution width [Ratio] by Automated count 2024-06-13 15:30:49 15.9 % F 11.0-15.0 Hemoglobin [Mass/volume] in Blood 2024-06-13 15:30:49 10.3 g/dL F 12.0-16.0 Platelets [#/volume] in Blood by Automated count 2024-06-13 15:30:49 341 x 10^3 cells/uL F 140.0-450.0 MCH [Entitic mass] by Automated count 2024-06-13 15:30:49 31.7 pg F 25.9-34.2 MCHC [Mass/volume] by Automated count 2024-06-13 15:30:49 30.5 g/dL F 29.6-35.3 Erythrocytes [#/volume] in Blood by Automated count 2024-06-13 15:30:49 3.24 x 10'6 cells/uL F 3.85-5.2 Hematocrit [Volume Fraction] of Blood by Automated count 2024-06-13 15:30:49 33.6 % F 37.0-47.0 MCV [Entitic volume] by Automated count 2024-06-13 15:30:49 103.8 fL F 80.0-100.0 TIBC 2024-06-06 19:58:40 F Recollect - Shipping temp out of range IRON SATURATION 2024-06-06 19:58:40 F Recollect - Shipping temp out of range HCT CALC HGBX3 2024-06-06 19:58:40 F Recollect - Shipping temp out of range Ferritin [Mass/volume] in Serum or Plasma 2024-06-06 13:39:45 F Recollect - Shipping temp out of range Platelets [#/volume] in Blood by Automated count 2024-06-06 13:39:45 F Recollect - Shipping temp out of range Erythrocyte distribution width [Ratio] by Automated count 2024-06-06 13:39:45 F Recollect - Shipping temp out of range Hematocrit [Volume Fraction] of Blood by Automated count 2024-06-06 13:39:45 F Recollect - Shipping temp out of range MCHC [Mass/volume] by Automated count 2024-06-06 13:39:45 F Recollect - Shipping temp out of range MCV [Entitic volume] by Automated count 2024-06-06 13:39:45 F Recollect - Shipping temp out of range Erythrocytes [#/volume] in Blood by Automated count 2024-06-06 13:39:45 F Recollect - Shipping temp out of range MCH [Entitic mass] by Automated count 2024-06-06 13:39:45 F Recollect - Shipping temp out of range Hemoglobin [Mass/volume] in Blood 2024-06-06 13:39:45 F Recollect - Shipping temp out of range Iron [Mass/volume] in Serum or Plasma 2024-06-06 13:37:10 F Recollect - Shipping temp out of range Iron binding capacity.unsaturated [Mass/volume] in Serum or Plasma 2024-06-06 13:37:10 F Recollect - Shipping temp out of range Ferritin [Mass/volume] in Serum or Plasma 2024-05-03 03:58:12 1028 ng/mL F 10.0-291.0 IRON SATURATION 2024-05-03 02:44:58 31 % F 16.0-46.0 TIBC 2024-05-03 02:44:58 191 ug/dL F 250.0-425.0 Iron [Mass/volume] in Serum or Plasma 2024-05-03 02:33:15 59 ug/dL F 50.0-170.0 Iron binding capacity.unsaturated [Mass/volume] in Serum or Plasma 2024-05-03 02:33:15 132 ug/dL F 80.0-375.0 HCT CALC HGBX3 2024-05-02 20:58:16 28.5 % F 37.0-47.0 Erythrocyte distribution width [Ratio] by Automated count 2024-05-02 20:57:37 16.9 % F 11.0-15.0 Hemoglobin [Mass/volume] in Blood 2024-05-02 20:57:37 9.5 g/dL F 12.0-16.0 Platelets [#/volume] in Blood by Automated count 2024-05-02 20:57:37 275 x 10^3 cells/uL F 140.0-450.0 MCHC [Mass/volume] by Automated count 2024-05-02 20:57:37 31.8 g/dL F 29.6-35.3 MCH [Entitic mass] by Automated count 2024-05-02 20:57:37 33 pg F 25.9-34.2 Erythrocytes [#/volume] in Blood by Automated count 2024-05-02 20:57:37 2.89 x 10'6 cells/uL F 3.85-5.2 Hematocrit [Volume Fraction] of Blood by Automated count 2024-05-02 20:57:37 29.9 % F 37.0-47.0 MCV [Entitic volume] by Automated count 2024-05-02 20:57:37 103.6 fL F 80.0-100.0 Ferritin [Mass/volume] in Serum or Plasma 2024-04-12 06:46:51 999 ng/mL F 10.0-291.0 IRON SATURATION 2024-04-12 05:11:41 38 % F 16.0-46.0 TIBC 2024-04-12 05:11:41 206 ug/dL F 250.0-425.0 Iron [Mass/volume] in Serum or Plasma 2024-04-12 05:00:36 78 ug/dL F 50.0-170.0 Iron binding capacity.unsaturated [Mass/volume] in Serum or Plasma 2024-04-12 05:00:35 128 ug/dL F 80.0-375.0 HCT CALC HGBX3 2024-04-11 19:03:28 28.8 % F 37.0-47.0 Erythrocyte distribution width [Ratio] by Automated count 2024-04-11 19:02:40 15.7 % F 11.0-15.0 Hemoglobin [Mass/volume] in Blood 2024-04-11 19:02:40 9.6 g/dL F 12.0-16.0 Platelets [#/volume] in Blood by Automated count 2024-04-11 19:02:40 291 x 10^3 cells/uL F 140.0-450.0 MCH [Entitic mass] by Automated count 2024-04-11 19:02:40 31.6 pg F 25.9-34.2 MCHC [Mass/volume] by Automated count 2024-04-11 19:02:40 30.3 g/dL F 29.6-35.3 Erythrocytes [#/volume] in Blood by Automated count 2024-04-11 19:02:40 3.04 x 10'6 cells/uL F 3.85-5.2 Hematocrit [Volume Fraction] of Blood by Automated count 2024-04-11 19:02:40 31.6 % F 37.0-47.0 MCV [Entitic volume] by Automated count 2024-04-11 19:02:40 104.1 fL F 80.0-100.0 IRON SATURATION 2024-04-09 07:35:01 F Canceled - Specimen not received 5 days past draw date TIBC 2024-04-09 07:35:01 F Canceled - Specimen not received 5 days past draw date HCT CALC HGBX3 2024-04-09 07:35:01 F Canceled - Specimen not received 5 days past draw date Iron binding capacity.unsaturated [Mass/volume] in Serum or Plasma 2024-04-09 07:23:30 F Canceled - Specimen not received 5 days past draw date Iron [Mass/volume] in Serum or Plasma 2024-04-09 07:23:30 F Canceled - Specimen not received 5 days past draw date MCH [Entitic mass] by Automated count 2024-04-09 07:23:30 F Canceled - Specimen not received 5 days past draw date Erythrocytes [#/volume] in Blood by Automated count 2024-04-09 07:23:30 F Canceled - Specimen not received 5 days past draw date MCV [Entitic volume] by Automated count 2024-04-09 07:23:30 F Canceled - Specimen not received 5 days past draw date Erythrocyte distribution width [Ratio] by Automated count 2024-04-09 07:23:30 F Canceled - Specimen not received 5 days past draw date Hemoglobin [Mass/volume] in Blood 2024-04-09 07:23:30 F Canceled - Specimen not received 5 days past draw date MCHC [Mass/volume] by Automated count 2024-04-09 07:23:30 F Canceled - Specimen not received 5 days past draw date Hematocrit [Volume Fraction] of Blood by Automated count 2024-04-09 07:23:30 F Canceled - Specimen not received 5 days past draw date Platelets [#/volume] in Blood by Automated count 2024-04-09 07:23:30 F Canceled - Specimen not received 5 days past draw date Ferritin [Mass/volume] in Serum or Plasma 2024-04-09 07:23:30 F Canceled - Specimen not received 5 days past draw date IRON SATURATION 2024-03-08 05:22:28 33 % F 16.0-46.0 TIBC 2024-03-08 05:22:28 207 ug/dL F 250.0-425.0 Iron [Mass/volume] in Serum or Plasma 2024-03-08 05:09:40 69 ug/dL F 50.0-170.0 Iron binding capacity.unsaturated [Mass/volume] in Serum or Plasma 2024-03-08 05:09:40 138 ug/dL F 80.0-375.0 Ferritin [Mass/volume] in Serum or Plasma 2024-03-08 00:22:07 1406 ng/mL F 10.0-291.0 HCT CALC HGBX3 2024-03-07 17:06:58 32.1 % F 37.0-47.0 Erythrocyte distribution width [Ratio] by Automated count 2024-03-07 17:06:39 16 % F 11.0-15.0 Hemoglobin [Mass/volume] in Blood 2024-03-07 17:06:39 10.7 g/dL F 12.0-16.0 Platelets [#/volume] in Blood by Automated count 2024-03-07 17:06:39 305 x 10^3 cells/uL F 140.0-450.0 MCHC [Mass/volume] by Automated count 2024-03-07 17:06:39 31.4 g/dL F 29.6-35.3 MCH [Entitic mass] by Automated count 2024-03-07 17:06:39 32.8 pg F 25.9-34.2 Erythrocytes [#/volume] in Blood by Automated count 2024-03-07 17:06:39 3.27 x 10'6 cells/uL F 3.85-5.2 Hematocrit [Volume Fraction] of Blood by Automated count 2024-03-07 17:06:39 34.1 % F 37.0-47.0 MCV [Entitic volume] by Automated count 2024-03-07 17:06:39 104.3 fL F 80.0-100.0 IRON SATURATION 2024-02-02 06:52:25 34 % F 16.0-46.0 TIBC 2024-02-02 06:52:25 193 ug/dL F 250.0-425.0 Iron binding capacity.unsaturated [Mass/volume] in Serum or Plasma 2024-02-02 06:49:14 127 ug/dL F 80.0-375.0 Iron [Mass/volume] in Serum or Plasma 2024-02-01 18:35:11 66 ug/dL F 50.0-170.0 Ferritin [Mass/volume] in Serum or Plasma 2024-02-01 17:38:33 1282 ng/mL F 10.0-291.0 HCT CALC HGBX3 2024-02-01 14:33:08 32.7 % F 37.0-47.0 Erythrocyte distribution width [Ratio] by Automated count 2024-02-01 14:32:44 16.1 % F 11.0-15.0 Hemoglobin [Mass/volume] in Blood 2024-02-01 14:32:44 10.9 g/dL F 12.0-16.0 Platelets [#/volume] in Blood by Automated count 2024-02-01 14:32:44 278 x 10^3 cells/uL F 140.0-450.0 MCH [Entitic mass] by Automated count 2024-02-01 14:32:44 32.2 pg F 25.9-34.2 Erythrocytes [#/volume] in Blood by Automated count 2024-02-01 14:32:44 3.39 x 10'6 cells/uL F 3.85-5.2 MCHC [Mass/volume] by Automated count 2024-02-01 14:32:44 31.5 g/dL F 29.6-35.3 Hematocrit [Volume Fraction] of Blood by Automated count 2024-02-01 14:32:44 34.6 % F 37.0-47.0 MCV [Entitic volume] by Automated count 2024-02-01 14:32:44 102 fL F 80.0-100.0 IRON SATURATION 2024-01-05 06:57:57 37 % F 16.0-46.0 TIBC 2024-01-05 06:57:57 187 ug/dL F 250.0-425.0 Ferritin [Mass/volume] in Serum or Plasma 2024-01-05 06:49:08 1470 ng/mL F 10.0-291.0 Iron [Mass/volume] in Serum or Plasma 2024-01-05 06:40:12 69 ug/dL F 50.0-170.0 Iron binding capacity.unsaturated [Mass/volume] in Serum or Plasma 2024-01-05 06:39:51 118 ug/dL F 80.0-375.0 HCT CALC HGBX3 2024-01-04 18:45:06 29.7 % F 37.0-47.0 Erythrocyte distribution width [Ratio] by Automated count 2024-01-04 18:44:39 16.1 % F 11.0-15.0 Hemoglobin [Mass/volume] in Blood 2024-01-04 18:44:39 9.9 g/dL F 12.0-16.0 Platelets [#/volume] in Blood by Automated count 2024-01-04 18:44:39 266 x 10^3 cells/uL F 140.0-450.0 MCHC [Mass/volume] by Automated count 2024-01-04 18:44:39 31.1 g/dL F 29.6-35.3 MCH [Entitic mass] by Automated count 2024-01-04 18:44:39 31.9 pg F 25.9-34.2 Erythrocytes [#/volume] in Blood by Automated count 2024-01-04 18:44:39 3.12 x 10'6 cells/uL F 3.85-5.2 Hematocrit [Volume Fraction] of Blood by Automated count 2024-01-04 18:44:39 32 % F 37.0-47.0 MCV [Entitic volume] by Automated count 2024-01-04 18:44:39 102.7 fL F 80.0-100.0 IRON SATURATION 2023-12-08 06:56:39 32 % F 16.0-46.0 TIBC 2023-12-08 06:56:39 199 ug/dL F 250.0-425.0 Iron [Mass/volume] in Serum or Plasma 2023-12-08 06:52:52 64 ug/dL F 50.0-170.0 Iron binding capacity.unsaturated [Mass/volume] in Serum or Plasma 2023-12-08 06:52:52 135 ug/dL F 80.0-375.0 Ferritin [Mass/volume] in Serum or Plasma 2023-12-08 05:06:44 1202 ng/mL F 10.0-291.0 HCT CALC HGBX3 2023-12-07 20:14:45 30 % F 37.0-47.0 Hemoglobin [Mass/volume] in Blood 2023-12-07 20:14:09 10 g/dL F 12.0-16.0 MCH [Entitic mass] by Automated count 2023-12-07 20:14:09 31.9 pg F 25.9-34.2 Erythrocytes [#/volume] in Blood by Automated count 2023-12-07 20:14:09 3.14 x 10'6 cells/uL F 3.85-5.2 Hematocrit [Volume Fraction] of Blood by Automated count 2023-12-07 20:14:09 31.6 % F 37.0-47.0 MCV [Entitic volume] by Automated count 2023-12-07 20:14:09 100.5 fL F 80.0-100.0 Erythrocyte distribution width [Ratio] by Automated count 2023-12-07 20:14:06 16.6 % F 11.0-15.0 Platelets [#/volume] in Blood by Automated count 2023-12-07 20:14:06 283 x 10^3 cells/uL F 140.0-450.0 MCHC [Mass/volume] by Automated count 2023-12-07 20:14:06 31.8 g/dL F 29.6-35.3 HCT CALC HGBX3 2023-11-04 00:19:11 31.2 % F 37.0-47.0 Erythrocyte distribution width [Ratio] by Automated count 2023-11-04 00:18:31 16.8 % F 11.0-15.0 Platelets [#/volume] in Blood by Automated count 2023-11-04 00:18:31 327 x 10^3 cells/uL F 140.0-450.0 MCHC [Mass/volume] by Automated count 2023-11-04 00:18:31 31.8 g/dL F 29.6-35.3 Hemoglobin [Mass/volume] in Blood 2023-11-04 00:18:27 10.4 g/dL F 12.0-16.0 MCH [Entitic mass] by Automated count 2023-11-04 00:18:27 32.1 pg F 25.9-34.2 Hematocrit [Volume Fraction] of Blood by Automated count 2023-11-04 00:18:27 32.7 % F 37.0-47.0 Erythrocytes [#/volume] in Blood by Automated count 2023-11-04 00:18:27 3.23 x 10'6 cells/uL F 3.85-5.2 MCV [Entitic volume] by Automated count 2023-11-04 00:18:27 101.1 fL F 80.0-100.0 HCT CALC HGBX3 2023-10-05 16:41:22 31.5 % F 37.0-47.0 Platelets [#/volume] in Blood by Automated count 2023-10-05 16:40:40 273 x 10^3 cells/uL F 140.0-450.0 Erythrocyte distribution width [Ratio] by Automated count 2023-10-05 16:40:38 17.2 % F 11.0-15.0 Hemoglobin [Mass/volume] in Blood 2023-10-05 16:40:38 10.5 g/dL F 12.0-16.0 MCH [Entitic mass] by Automated count 2023-10-05 16:40:38 31.8 pg F 25.9-34.2 MCHC [Mass/volume] by Automated count 2023-10-05 16:40:38 31.1 g/dL F 29.6-35.3 Erythrocytes [#/volume] in Blood by Automated count 2023-10-05 16:40:38 3.29 x 10'6 cells/uL F 3.85-5.2 Hematocrit [Volume Fraction] of Blood by Automated count 2023-10-05 16:40:38 33.6 % F 37.0-47.0 MCV [Entitic volume] by Automated count 2023-10-05 16:40:38 102 fL F 80.0-100.0 IRON SATURATION 2023-09-01 08:32:27 22 % F 16.0-46.0 TIBC 2023-09-01 08:32:27 201 ug/dL F 250.0-425.0 Iron binding capacity.unsaturated [Mass/volume] in Serum or Plasma 2023-09-01 08:26:14 157 ug/dL F 80.0-375.0 Iron [Mass/volume] in Serum or Plasma 2023-09-01 06:07:17 44 ug/dL F 50.0-170.0 Ferritin [Mass/volume] in Serum or Plasma 2023-09-01 03:10:52 724 ng/mL F 10.0-291.0 HCT CALC HGBX3 2023-08-31 18:26:07 31.2 % F 37.0-47.0 Hematocrit [Volume Fraction] of Blood by Automated count 2023-08-31 18:25:42 33.1 % F 37.0-47.0 Erythrocyte distribution width [Ratio] by Automated count 2023-08-31 18:25:41 17 % F 11.0-15.0 Hemoglobin [Mass/volume] in Blood 2023-08-31 18:25:41 10.4 g/dL F 12.0-16.0 Platelets [#/volume] in Blood by Automated count 2023-08-31 18:25:41 264 x 10^3 cells/uL F 140.0-450.0 MCH [Entitic mass] by Automated count 2023-08-31 18:25:41 31.2 pg F 25.9-34.2 MCHC [Mass/volume] by Automated count 2023-08-31 18:25:41 31.4 g/dL F 29.6-35.3 Erythrocytes [#/volume] in Blood by Automated count 2023-08-31 18:25:41 3.33 x 10'6 cells/uL F 3.85-5.2 MCV [Entitic volume] by Automated count 2023-08-31 18:25:41 99.6 fL F 80.0-100.0 IRON SATURATION 2023-08-04 06:43:57 49 % F 16.0-46.0 TIBC 2023-08-04 06:43:57 195 ug/dL F 250.0-425.0 Iron [Mass/volume] in Serum or Plasma 2023-08-04 06:38:52 96 ug/dL F 50.0-170.0 Iron binding capacity.unsaturated [Mass/volume] in Serum or Plasma 2023-08-04 06:38:52 99 ug/dL F 80.0-375.0 Ferritin [Mass/volume] in Serum or Plasma 2023-08-03 18:38:40 1117 ng/mL F 10.0-291.0 HCT CALC HGBX3 2023-08-03 13:39:45 32.7 % F 37.0-47.0 Erythrocyte distribution width [Ratio] by Automated count 2023-08-03 13:39:31 16.9 % F 11.0-15.0 Hemoglobin [Mass/volume] in Blood 2023-08-03 13:39:31 10.9 g/dL F 12.0-16.0 Platelets [#/volume] in Blood by Automated count 2023-08-03 13:39:31 231 x 10^3 cells/uL F 140.0-450.0 MCH [Entitic mass] by Automated count 2023-08-03 13:39:31 31.8 pg F 25.9-34.2 MCHC [Mass/volume] by Automated count 2023-08-03 13:39:31 31.8 g/dL F 29.6-35.3 Erythrocytes [#/volume] in Blood by Automated count 2023-08-03 13:39:31 3.42 x 10'6 cells/uL F 3.85-5.2 Hematocrit [Volume Fraction] of Blood by Automated count 2023-08-03 13:39:31 34.2 % F 37.0-47.0 MCV [Entitic volume] by Automated count 2023-08-03 13:39:31 100.1 fL F 80.0-100.0 IRON SATURATION 2023-07-07 07:00:27 46 % F 16.0-46.0 TIBC 2023-07-07 07:00:27 201 ug/dL F 250.0-425.0 Iron [Mass/volume] in Serum or Plasma 2023-07-07 06:53:08 93 ug/dL F 50.0-170.0 Iron binding capacity.unsaturated [Mass/volume] in Serum or Plasma 2023-07-07 06:53:02 108 ug/dL F 80.0-375.0 HCT CALC HGBX3 2023-07-07 01:38:10 31.5 % F 37.0-47.0 Erythrocyte distribution width [Ratio] by Automated count 2023-07-07 01:37:33 16.2 % F 11.0-15.0 Hemoglobin [Mass/volume] in Blood 2023-07-07 01:37:33 10.5 g/dL F 12.0-16.0 Platelets [#/volume] in Blood by Automated count 2023-07-07 01:37:33 286 x 10^3 cells/uL F 140.0-450.0 MCH [Entitic mass] by Automated count 2023-07-07 01:37:33 32.5 pg F 25.9-34.2 MCHC [Mass/volume] by Automated count 2023-07-07 01:37:33 31.5 g/dL F 29.6-35.3 Erythrocytes [#/volume] in Blood by Automated count 2023-07-07 01:37:33 3.24 x 10'6 cells/uL F 3.85-5.2 Hematocrit [Volume Fraction] of Blood by Automated count 2023-07-07 01:37:33 33.5 % F 37.0-47.0 MCV [Entitic volume] by Automated count 2023-07-07 01:37:33 103.4 fL F 80.0-100.0 Ferritin [Mass/volume] in Serum or Plasma 2023-07-06 18:22:44 1052 ng/mL F 10.0-291.0 IRON SATURATION 2023-06-08 18:13:11 39 % F 16.0-46.0 TIBC 2023-06-08 18:13:11 187 ug/dL F 250.0-425.0 Iron [Mass/volume] in Serum or Plasma 2023-06-08 18:10:24 73 ug/dL F 50.0-170.0 Iron binding capacity.unsaturated [Mass/volume] in Serum or Plasma 2023-06-08 18:10:24 114 ug/dL F 80.0-375.0 Ferritin [Mass/volume] in Serum or Plasma 2023-06-08 17:05:39 1261 ng/mL F 10.0-291.0 HCT CALC HGBX3 2023-06-08 16:26:06 33.9 % F 37.0-47.0 Erythrocyte distribution width [Ratio] by Automated count 2023-06-08 16:25:39 16.1 % F 11.0-15.0 Hemoglobin [Mass/volume] in Blood 2023-06-08 16:25:39 11.3 g/dL F 12.0-16.0 Platelets [#/volume] in Blood by Automated count 2023-06-08 16:25:39 291 x 10^3 cells/uL F 140.0-450.0 MCH [Entitic mass] by Automated count 2023-06-08 16:25:39 31.7 pg F 25.9-34.2 MCHC [Mass/volume] by Automated count 2023-06-08 16:25:39 30.8 g/dL F 29.6-35.3 Erythrocytes [#/volume] in Blood by Automated count 2023-06-08 16:25:39 3.57 x 10'6 cells/uL F 3.85-5.2 Hematocrit [Volume Fraction] of Blood by Automated count 2023-06-08 16:25:39 36.8 % F 37.0-47.0 MCV [Entitic volume] by Automated count 2023-06-08 16:25:39 103 fL F 80.0-100.0 HCT CALC HGBX3 2023-05-04 23:29:31 32.7 % F 37.0-47.0 Erythrocyte distribution width [Ratio] by Automated count 2023-05-04 23:28:59 16.4 % F 11.0-15.0 Hemoglobin [Mass/volume] in Blood 2023-05-04 23:28:59 10.9 g/dL F 12.0-16.0 Platelets [#/volume] in Blood by Automated count 2023-05-04 23:28:59 289 x 10^3 cells/uL F 140.0-450.0 MCH [Entitic mass] by Automated count 2023-05-04 23:28:59 32.5 pg F 25.9-34.2 MCHC [Mass/volume] by Automated count 2023-05-04 23:28:59 31 g/dL F 29.6-35.3 Erythrocytes [#/volume] in Blood by Automated count 2023-05-04 23:28:59 3.35 x 10'6 cells/uL F 3.85-5.2 Hematocrit [Volume Fraction] of Blood by Automated count 2023-05-04 23:28:59 35.2 % F 37.0-47.0 MCV [Entitic volume] by Automated count 2023-05-04 23:28:59 104.9 fL F 80.0-100.0 IRON SATURATION 2023-05-04 18:51:08 37 % F 16.0-46.0 TIBC 2023-05-04 18:51:08 183 ug/dL F 250.0-425.0 Iron [Mass/volume] in Serum or Plasma 2023-05-04 18:49:17 67 ug/dL F 50.0-170.0 Iron binding capacity.unsaturated [Mass/volume] in Serum or Plasma 2023-05-04 18:49:17 116 ug/dL F 80.0-375.0 Ferritin [Mass/volume] in Serum or Plasma 2023-05-04 18:15:58 1256 ng/mL F 10.0-291.0 IRON SATURATION 2023-04-07 03:53:59 37 % F 16.0-46.0 TIBC 2023-04-07 03:53:59 203 ug/dL F 250.0-425.0 Iron [Mass/volume] in Serum or Plasma 2023-04-07 03:32:10 76 ug/dL F 50.0-170.0 Iron binding capacity.unsaturated [Mass/volume] in Serum or Plasma 2023-04-07 03:32:10 127 ug/dL F 80.0-375.0 Ferritin [Mass/volume] in Serum or Plasma 2023-04-06 21:04:29 1325 ng/mL F 10.0-291.0 HCT CALC HGBX3 2023-04-06 20:15:36 33 % F 37.0-47.0 MCHC [Mass/volume] by Automated count 2023-04-06 20:15:27 30.7 g/dL F 29.6-35.3 Erythrocyte distribution width [Ratio] by Automated count 2023-04-06 20:15:24 15.8 % F 11.0-15.0 Hemoglobin [Mass/volume] in Blood 2023-04-06 20:15:24 11 g/dL F 12.0-16.0 Platelets [#/volume] in Blood by Automated count 2023-04-06 20:15:24 257 x 10^3 cells/uL F 140.0-450.0 MCH [Entitic mass] by Automated count 2023-04-06 20:15:24 31.6 pg F 25.9-34.2 Erythrocytes [#/volume] in Blood by Automated count 2023-04-06 20:15:24 3.47 x 10'6 cells/uL F 3.85-5.2 Hematocrit [Volume Fraction] of Blood by Automated count 2023-04-06 20:15:24 35.8 % F 37.0-47.0 MCV [Entitic volume] by Automated count 2023-04-06 20:15:24 103.2 fL F 80.0-100.0 IRON SATURATION 2023-03-03 06:36:24 29 % F 16.0-46.0 TIBC 2023-03-03 06:36:24 190 ug/dL F 250.0-425.0 Iron [Mass/volume] in Serum or Plasma 2023-03-03 06:28:39 56 ug/dL F 50.0-170.0 Iron binding capacity.unsaturated [Mass/volume] in Serum or Plasma 2023-03-03 06:28:39 134 ug/dL F 80.0-375.0 Ferritin [Mass/volume] in Serum or Plasma 2023-03-02 17:04:21 1139 ng/mL F 10.0-291.0 HCT CALC HGBX3 2023-03-02 15:42:26 34.8 % F 37.0-47.0 Erythrocyte distribution width [Ratio] by Automated count 2023-03-02 15:42:19 15.3 % F 11.0-15.0 Hemoglobin [Mass/volume] in Blood 2023-03-02 15:42:19 11.6 g/dL F 12.0-16.0 Platelets [#/volume] in Blood by Automated count 2023-03-02 15:42:19 278 x 10^3 cells/uL F 150.0-400.0 MCH [Entitic mass] by Automated count 2023-03-02 15:42:19 32.7 pg F 27.0-31.0 MCHC [Mass/volume] by Automated count 2023-03-02 15:42:19 31.1 g/dL F 32.0-36.0 Hematocrit [Volume Fraction] of Blood by Automated count 2023-03-02 15:42:19 37.4 % F 37.0-47.0 Erythrocytes [#/volume] in Blood by Automated count 2023-03-02 15:42:19 3.56 x 10'6 cells/uL F 4.2-5.4 MCV [Entitic volume] by Automated count 2023-03-02 15:42:19 105.1 fL F 80.0-100.0 IRON SATURATION 2023-02-03 04:30:12 40 % F 16.0-46.0 TIBC 2023-02-03 04:30:12 186 ug/dL F 250.0-425.0 Iron [Mass/volume] in Serum or Plasma 2023-02-03 04:21:20 75 ug/dL F 50.0-170.0 Iron binding capacity.unsaturated [Mass/volume] in Serum or Plasma 2023-02-03 04:21:20 111 ug/dL F 80.0-375.0 Ferritin [Mass/volume] in Serum or Plasma 2023-02-02 16:05:21 1212 ng/mL F 10.0-291.0 HCT CALC HGBX3 2023-02-02 15:13:58 36.3 % F 37.0-47.0 Erythrocyte distribution width [Ratio] by Automated count 2023-02-02 15:13:22 16.2 % F 11.0-15.0 Hemoglobin [Mass/volume] in Blood 2023-02-02 15:13:22 12.1 g/dL F 12.0-16.0 Platelets [#/volume] in Blood by Automated count 2023-02-02 15:13:22 255 x 10^3 cells/uL F 150.0-400.0 MCH [Entitic mass] by Automated count 2023-02-02 15:13:22 33.1 pg F 27.0-31.0 MCHC [Mass/volume] by Automated count 2023-02-02 15:13:22 32.1 g/dL F 32.0-36.0 Hematocrit [Volume Fraction] of Blood by Automated count 2023-02-02 15:13:22 37.7 % F 37.0-47.0 Erythrocytes [#/volume] in Blood by Automated count 2023-02-02 15:13:22 3.65 x 10'6 cells/uL F 4.2-5.4 MCV [Entitic volume] by Automated count 2023-02-02 15:13:22 103.2 fL F 80.0-100.0 IRON SATURATION 2023-01-06 04:05:22 34 % F 16.0-46.0 TIBC 2023-01-06 04:05:22 204 ug/dL F 250.0-425.0 Iron [Mass/volume] in Serum or Plasma 2023-01-06 03:31:56 69 ug/dL F 50.0-170.0 Iron binding capacity.unsaturated [Mass/volume] in Serum or Plasma 2023-01-06 03:31:56 135 ug/dL F 80.0-375.0 Ferritin [Mass/volume] in Serum or Plasma 2023-01-06 03:17:16 1167 ng/mL F 10.0-291.0 HCT CALC HGBX3 2023-01-05 22:39:21 35.1 % F 37.0-47.0 Erythrocyte distribution width [Ratio] by Automated count 2023-01-05 22:38:22 16.6 % F 11.0-15.0 Hemoglobin [Mass/volume] in Blood 2023-01-05 22:38:22 11.7 g/dL F 12.0-16.0 Platelets [#/volume] in Blood by Automated count 2023-01-05 22:38:22 301 x 10^3 cells/uL F 150.0-400.0 MCH [Entitic mass] by Automated count 2023-01-05 22:38:22 31.8 pg F 27.0-31.0 MCHC [Mass/volume] by Automated count 2023-01-05 22:38:22 29.9 g/dL F 32.0-36.0 Hematocrit [Volume Fraction] of Blood by Automated count 2023-01-05 22:38:22 38.9 % F 37.0-47.0 Erythrocytes [#/volume] in Blood by Automated count 2023-01-05 22:38:22 3.66 x 10'6 cells/uL F 4.2-5.4 MCV [Entitic volume] by Automated count 2023-01-05 22:38:22 106.3 fL F 80.0-100.0 IRON SATURATION 2022-12-09 07:24:34 43 % F 16.0-46.0 TIBC 2022-12-09 07:24:34 197 ug/dL F 250.0-425.0 Iron [Mass/volume] in Serum or Plasma 2022-12-09 07:21:36 85 ug/dL F 50.0-170.0 Iron binding capacity.unsaturated [Mass/volume] in Serum or Plasma 2022-12-09 07:21:36 112 ug/dL F 80.0-375.0 Ferritin [Mass/volume] in Serum or Plasma 2022-12-08 18:13:04 1171 ng/mL F 10.0-291.0 HCT CALC HGBX3 2022-12-08 17:10:53 36 % F 37.0-47.0 Erythrocyte distribution width [Ratio] by Automated count 2022-12-08 17:09:51 16.6 % F 11.0-15.0 Hemoglobin [Mass/volume] in Blood 2022-12-08 17:09:51 12 g/dL F 12.0-16.0 Platelets [#/volume] in Blood by Automated count 2022-12-08 17:09:51 252 x 10^3 cells/uL F 150.0-400.0 MCH [Entitic mass] by Automated count 2022-12-08 17:09:51 32.4 pg F 27.0-31.0 MCHC [Mass/volume] by Automated count 2022-12-08 17:09:51 31.5 g/dL F 32.0-36.0 Hematocrit [Volume Fraction] of Blood by Automated count 2022-12-08 17:09:51 38.1 % F 37.0-47.0 Erythrocytes [#/volume] in Blood by Automated count 2022-12-08 17:09:51 3.7 x 10'6 cells/uL F 4.2-5.4 MCV [Entitic volume] by Automated count 2022-12-08 17:09:51 103 fL F 80.0-100.0 IRON SATURATION 2022-11-04 07:37:43 35 % F 16.0-46.0 TIBC 2022-11-04 07:37:43 205 ug/dL F 250.0-425.0 Iron [Mass/volume] in Serum or Plasma 2022-11-04 07:34:08 71 ug/dL F 50.0-170.0 Iron binding capacity.unsaturated [Mass/volume] in Serum or Plasma 2022-11-04 07:34:06 134 ug/dL F 80.0-375.0 HCT CALC HGBX3 2022-11-03 18:55:33 35.7 % F 37.0-47.0 Erythrocyte distribution width [Ratio] by Automated count 2022-11-03 18:54:50 17 % F 11.0-15.0 Hemoglobin [Mass/volume] in Blood 2022-11-03 18:54:50 11.9 g/dL F 12.0-16.0 Platelets [#/volume] in Blood by Automated count 2022-11-03 18:54:50 264 x 10^3 cells/uL F 150.0-400.0 MCH [Entitic mass] by Automated count 2022-11-03 18:54:50 31.8 pg F 27.0-31.0 MCHC [Mass/volume] by Automated count 2022-11-03 18:54:50 30.1 g/dL F 32.0-36.0 Erythrocytes [#/volume] in Blood by Automated count 2022-11-03 18:54:50 3.74 x 10'6 cells/uL F 4.2-5.4 Hematocrit [Volume Fraction] of Blood by Automated count 2022-11-03 18:54:50 39.5 % F 37.0-47.0 MCV [Entitic volume] by Automated count 2022-11-03 18:54:50 105.6 fL F 80.0-100.0 Ferritin [Mass/volume] in Serum or Plasma 2022-11-03 17:12:53 667 ng/mL F 10.0-291.0 IRON SATURATION 2022-10-07 04:50:35 33 % F 16.0-46.0 TIBC 2022-10-07 04:50:35 190 ug/dL F 250.0-425.0 Iron [Mass/volume] in Serum or Plasma 2022-10-07 04:38:39 62 ug/dL F 50.0-170.0 Iron binding capacity.unsaturated [Mass/volume] in Serum or Plasma 2022-10-07 04:38:33 128 ug/dL F 80.0-375.0 Ferritin [Mass/volume] in Serum or Plasma 2022-10-06 22:36:51 960 ng/mL F 10.0-291.0 HCT CALC HGBX3 2022-10-06 21:37:49 33.9 % F 37.0-47.0 MCHC [Mass/volume] by Automated count 2022-10-06 21:36:49 30.3 g/dL F 32.0-36.0 Erythrocyte distribution width [Ratio] by Automated count 2022-10-06 21:36:47 17.3 % F 11.0-15.0 Hemoglobin [Mass/volume] in Blood 2022-10-06 21:36:47 11.3 g/dL F 12.0-16.0 Platelets [#/volume] in Blood by Automated count 2022-10-06 21:36:47 303 x 10^3 cells/uL F 150.0-400.0 MCH [Entitic mass] by Automated count 2022-10-06 21:36:47 31.5 pg F 27.0-31.0 Hematocrit [Volume Fraction] of Blood by Automated count 2022-10-06 21:36:47 37.1 % F 37.0-47.0 Erythrocytes [#/volume] in Blood by Automated count 2022-10-06 21:36:47 3.58 x 10'6 cells/uL F 4.2-5.4 MCV [Entitic volume] by Automated count 2022-10-06 21:36:47 103.8 fL F 80.0-100.0 Hemoglobin [Mass/volume] in Blood Iron binding capacity.unsaturated [Mass/volume] in Serum or Plasma IRON SATURATION TIBC Iron [Mass/volume] in Serum or Plasma Ferritin [Mass/volume] in Serum or Plasma Comorbidities Description Draw Date Result/Unit Status Ref Range Result Comments Hemoglobin A1c/Hemoglobin.total in Blood 2025-06-18 19:01:20 8.9 %A1c F 0.0-5.6 Hemoglobin A1c/Hemoglobin.total in Blood 2025-04-03 14:01:11 7.9 %A1c F 0.0-5.6 Hemoglobin A1c/Hemoglobin.total in Blood 2024-12-04 16:55:09 7.1 %A1c F 0.0-5.6 Hemoglobin A1c/Hemoglobin.total in Blood 2024-09-07 03:21:37 6.6 %A1c F 0.0-5.6 Hemoglobin A1c/Hemoglobin.total in Blood 2024-06-13 15:43:34 7 %A1c F 0.0-5.6 Hemoglobin A1c/Hemoglobin.total in Blood 2024-06-06 13:39:45 F Recollect - Shipping temp out of range Hemoglobin A1c/Hemoglobin.total in Blood 2024-03-08 04:05:03 7.6 %A1c F 0.0-5.6 Hemoglobin A1c/Hemoglobin.total in Blood 2023-12-07 22:12:43 7.1 %A1c F 0.0-5.6 Hemoglobin A1c/Hemoglobin.total in Blood 2023-08-31 23:29:54 8.5 %A1c F 0.0-5.6 Hemoglobin A1c/Hemoglobin.total in Blood 2023-06-08 19:06:21 7.6 %A1c F 0.0-5.6 Hemoglobin A1c/Hemoglobin.total in Blood 2023-03-02 23:18:32 8.6 %A1c F 0.0-5.6 Hemoglobin A1c/Hemoglobin.total in Blood 2022-12-08 23:02:23 9.5 %A1c F 0.0-5.6 FluidBP Description Draw Date Result/Unit Status Ref Range Result Comments Sodium [Moles/volume] in Serum or Plasma 2025-07-17 05:49:40 139 mEq/L F 136.0-145.0 Sodium [Moles/volume] in Serum or Plasma 2025-06-18 20:41:04 138 mEq/L F 136.0-145.0 Sodium [Moles/volume] in Serum or Plasma 2025-05-22 01:59:09 139 mEq/L F 136.0-145.0 Sodium [Moles/volume] in Serum or Plasma 2025-05-22 01:59:09 139 mEq/L F 136.0-145.0 Sodium [Moles/volume] in Serum or Plasma 2025-05-22 01:59:09 139 mEq/L F 136.0-145.0 Sodium [Moles/volume] in Serum or Plasma 2025-04-03 07:27:44 138 mEq/L F 136.0-145.0 Sodium [Moles/volume] in Serum or Plasma 2025-02-21 18:00:04 137 mEq/L F 132.0-146.0 Sodium [Moles/volume] in Serum or Plasma 2025-02-21 18:00:04 137 mEq/L F 132.0-146.0 Sodium [Moles/volume] in Serum or Plasma 2025-01-02 07:06:00 136 mEq/L F 132.0-146.0 Sodium [Moles/volume] in Serum or Plasma 2024-12-05 07:02:57 137 mEq/L F 132.0-146.0 Sodium [Moles/volume] in Serum or Plasma 2024-11-10 06:43:31 139 mEq/L F 132.0-146.0 Sodium [Moles/volume] in Serum or Plasma 2024-10-04 21:07:10 139 mEq/L F 132.0-146.0 Sodium [Moles/volume] in Serum or Plasma 2024-09-07 03:59:39 138 mEq/L F 132.0-146.0 Sodium [Moles/volume] in Serum or Plasma 2024-08-10 07:26:43 139 mEq/L F 132.0-146.0 Sodium [Moles/volume] in Serum or Plasma 2024-07-04 16:17:52 139 mEq/L F 132.0-146.0 Sodium [Moles/volume] in Serum or Plasma 2024-06-13 16:16:50 138 mEq/L F 132.0-146.0 Sodium [Moles/volume] in Serum or Plasma 2024-06-06 13:37:10 F Recollect - Shipping temp out of range Sodium [Moles/volume] in Serum or Plasma 2024-05-03 02:33:15 139 mEq/L F 132.0-146.0 Sodium [Moles/volume] in Serum or Plasma 2024-04-12 05:00:54 140 mEq/L F 132.0-146.0 Sodium [Moles/volume] in Serum or Plasma 2024-04-09 07:23:30 F Canceled - Speci men not received 5 days past draw date Sodium [Moles/volume] in Serum or Plasma 2024-03-08 05:09:40 141 mEq/L F 132.0-146.0 Sodium [Moles/volume] in Serum or Plasma 2024-02-01 18:33:00 138 mEq/L F 132.0-146.0 Sodium [Moles/volume] in Serum or Plasma 2024-01-05 06:39:54 140 mEq/L F 132.0-146.0 Sodium [Moles/volume] in Serum or Plasma 2023-12-08 06:52:52 139 mEq/L F 132.0-146.0 Sodium [Moles/volume] in Serum or Plasma 2023-11-04 08:11:15 138 mEq/L F 132.0-146.0 Sodium [Moles/volume] in Serum or Plasma 2023-10-05 23:25:31 138 mEq/L F 132.0-146.0 Sodium [Moles/volume] in Serum or Plasma 2023-08-31 18:15:36 136 mEq/L F 132.0-146.0 Sodium [Moles/volume] in Serum or Plasma 2023-08-03 16:42:39 136 mEq/L F 132.0-146.0 Sodium [Moles/volume] in Serum or Plasma 2023-07-06 17:14:36 137 mEq/L F 132.0-146.0 Sodium [Moles/volume] in Serum or Plasma 2023-06-08 15:33:41 135 mEq/L F 132.0-146.0 Sodium [Moles/volume] in Serum or Plasma 2023-05-04 15:05:46 137 mEq/L F 132.0-146.0 Sodium [Moles/volume] in Serum or Plasma 2023-04-06 21:13:25 139 mEq/L F 132.0-146.0 Sodium [Moles/volume] in Serum or Plasma 2023-03-02 16:12:19 139 mEq/L F 132.0-146.0 Sodium [Moles/volume] in Serum or Plasma 2023-02-02 18:36:19 136 mEq/L F 132.0-146.0 Sodium [Moles/volume] in Serum or Plasma 2023-01-05 20:20:20 138 mEq/L F 132.0-146.0 Sodium [Moles/volume] in Serum or Plasma 2022-12-08 17:28:52 136 mEq/L F 132.0-146.0 Sodium [Moles/volume] in Serum or Plasma 2022-11-03 15:53:55 136 mEq/L F 132.0-146.0 Sodium [Moles/volume] in Serum or Plasma 2022-10-06 19:56:44 142 mEq/L F 132.0-146.0 General Description Draw Date Result/Unit Status Ref Range Result Comments Chloride [Moles/volume] in Serum or Plasma 2025-07-17 05:49:40 95 mEq/L F 98.0-107.0 Aspartate aminotransferase [Enzymatic activity/volume] in Serum or Plasma 2025-07-16 14:39:22 22 U/L F 0.0-33.0 Alanine aminotransferase [Enzymatic activity/volume] in Serum or Plasma 2025-07-16 14:39:22 24 U/L F 10.0-49.0 Chloride [Moles/volume] in Serum or Plasma 2025-06-18 20:41:04 95 mEq/L F 98.0-107.0 Alanine aminotransferase [Enzymatic activity/volume] in Serum or Plasma 2025-06-18 16:13:20 25 U/L F 10.0-49.0 Aspartate aminotransferase [Enzymatic activity/volume] in Serum or Plasma 2025-06-18 16:13:20 25 U/L F 0.0-33.0 Chloride [Moles/volume] in Serum or Plasma 2025-05-22 01:59:09 98 mEq/L F 98.0-107.0 Chloride [Moles/volume] in Serum or Plasma 2025-05-22 01:59:09 98 mEq/L F 98.0-107.0 Chloride [Moles/volume] in Serum or Plasma 2025-05-22 01:59:09 98 mEq/L F 98.0-107.0 Alanine aminotransferase [Enzymatic activity/volume] in Serum or Plasma 2025-05-21 17:02:15 33 U/L F 10.0-49.0 Aspartate aminotransferase [Enzymatic activity/volume] in Serum or Plasma 2025-05-21 17:02:15 31 U/L F 0.0-33.0 Alanine aminotransferase [Enzymatic activity/volume] in Serum or Plasma 2025-05-21 17:02:15 33 U/L F 10.0-49.0 Aspartate aminotransferase [Enzymatic activity/volume] in Serum or Plasma 2025-05-21 17:02:15 31 U/L F 0.0-33.0 Alanine aminotransferase [Enzymatic activity/volume] in Serum or Plasma 2025-05-21 17:02:15 33 U/L F 10.0-49.0 Aspartate aminotransferase [Enzymatic activity/volume] in Serum or Plasma 2025-05-21 17:02:15 31 U/L F 0.0-33.0 Chloride [Moles/volume] in Serum or Plasma 2025-04-03 07:27:44 98 mEq/L F 98.0-107.0 Aspartate aminotransferase [Enzymatic activity/volume] in Serum or Plasma 2025-04-02 19:04:15 38 U/L F 0.0-33.0 Alanine aminotransferase [Enzymatic activity/volume] in Serum or Plasma 2025-04-02 19:04:15 48 U/L F 10.0-49.0 Aluminum [Mass/volume] in Serum or Plasma 2025-04-02 18:16:07 10 ug/L F 0.0-9.0 Chloride [Moles/volume] in Serum or Plasma 2025-02-21 18:00:04 94 mEq/L F 99.0-109.0 Chloride [Moles/volume] in Serum or Plasma 2025-02-21 18:00:04 94 mEq/L F 99.0-109.0 Aspartate aminotransferase [Enzymatic activity/volume] in Serum or Plasma 2025-02-21 14:35:22 27 U/L F 0.0-33.0 Alanine aminotransferase [Enzymatic activity/volume] in Serum or Plasma 2025-02-21 14:35:22 33 U/L F 10.0-49.0 Aspartate aminotransferase [Enzymatic activity/volume] in Serum or Plasma 2025-02-21 14:35:22 27 U/L F 0.0-33.0 Alanine aminotransferase [Enzymatic activity/volume] in Serum or Plasma 2025-02-21 14:35:22 33 U/L F 10.0-49.0 Chloride [Moles/volume] in Serum or Plasma 2025-01-02 07:06:00 93 mEq/L F 99.0-109.0 Aspartate aminotransferase [Enzymatic activity/volume] in Serum or Plasma 2025-01-01 17:46:26 24 U/L F 0.0-33.0 Alanine aminotransferase [Enzymatic activity/volume] in Serum or Plasma 2025-01-01 17:46:26 26 U/L F 10.0-49.0 Chloride [Moles/volume] in Serum or Plasma 2024-12-05 07:02:57 94 mEq/L F 99.0-109.0 Aspartate aminotransferase [Enzymatic activity/volume] in Serum or Plasma 2024-12-04 16:08:27 37 U/L F 0.0-33.0 Alanine aminotransferase [Enzymatic activity/volume] in Serum or Plasma 2024-12-04 16:08:27 36 U/L F 10.0-49.0 Chloride [Moles/volume] in Serum or Plasma 2024-11-10 06:43:31 98 mEq/L F 99.0-109.0 Aspartate aminotransferase [Enzymatic activity/volume] in Serum or Plasma 2024-11-09 08:34:23 46 U/L F 0.0-33.0 Alanine aminotransferase [Enzymatic activity/volume] in Serum or Plasma 2024-11-09 08:34:23 49 U/L F 10.0-49.0 Chloride [Moles/volume] in Serum or Plasma 2024-10-04 21:07:10 95 mEq/L F 99.0-109.0 Aspartate aminotransferase [Enzymatic activity/volume] in Serum or Plasma 2024-10-04 14:27:22 37 U/L F 0.0-33.0 Alanine aminotransferase [Enzymatic activity/volume] in Serum or Plasma 2024-10-04 14:27:22 30 U/L F 10.0-49.0 Chloride [Moles/volume] in Serum or Plasma 2024-09-07 03:59:39 94 mEq/L F 99.0-109.0 Aspartate aminotransferase [Enzymatic activity/volume] in Serum or Plasma 2024-09-06 14:15:23 46 U/L F 0.0-33.0 Alanine aminotransferase [Enzymatic activity/volume] in Serum or Plasma 2024-09-06 14:15:23 12 U/L F 10.0-49.0 Chloride [Moles/volume] in Serum or Plasma 2024-08-10 07:26:43 96 mEq/L F 99.0-109.0 Aspartate aminotransferase [Enzymatic activity/volume] in Serum or Plasma 2024-08-10 00:43:24 40 U/L F 0.0-33.0 Alanine aminotransferase [Enzymatic activity/volume] in Serum or Plasma 2024-08-10 00:43:24 41 U/L F 10.0-49.0 Chloride [Moles/volume] in Serum or Plasma 2024-07-04 16:17:52 95 mEq/L F 99.0-109.0 Aspartate aminotransferase [Enzymatic activity/volume] in Serum or Plasma 2024-07-04 13:52:18 38 U/L F 0.0-33.0 Alanine aminotransferase [Enzymatic activity/volume] in Serum or Plasma 2024-07-04 13:52:18 41 U/L F 10.0-49.0 Chloride [Moles/volume] in Serum or Plasma 2024-06-13 16:16:50 96 mEq/L F 99.0-109.0 Aspartate aminotransferase [Enzymatic activity/volume] in Serum or Plasma 2024-06-13 13:43:36 27 U/L F 0.0-33.0 Alanine aminotransferase [Enzymatic activity/volume] in Serum or Plasma 2024-06-13 13:43:36 25 U/L F 10.0-49.0 Alanine aminotransferase [Enzymatic activity/volume] in Serum or Plasma 2024-06-06 13:37:10 F Recollect - Shipping temp out of range Aspartate aminotransferase [Enzymatic activity/volume] in Serum or Plasma 2024-06-06 13:37:10 F Recollect - Shipping temp out of range Chloride [Moles/volume] in Serum or Plasma 2024-06-06 13:37:10 F Recollect - Shipping temp out of range Chloride [Moles/volume] in Serum or Plasma 2024-05-03 02:33:15 98 mEq/L F 99.0-109.0 Aspartate aminotransferase [Enzymatic activity/volume] in Serum or Plasma 2024-05-02 19:24:31 28 U/L F 0.0-33.0 Alanine aminotransferase [Enzymatic activity/volume] in Serum or Plasma 2024-05-02 19:24:31 29 U/L F 10.0-49.0 Chloride [Moles/volume] in Serum or Plasma 2024-04-12 05:00:54 96 mEq/L F 99.0-109.0 Aspartate aminotransferase [Enzymatic activity/volume] in Serum or Plasma 2024-04-11 20:38:33 28 U/L F 0.0-33.0 Alanine aminotransferase [Enzymatic activity/volume] in Serum or Plasma 2024-04-11 20:38:33 26 U/L F 10.0-49.0 Aspartate aminotransferase [Enzymatic activity/volume] in Serum or Plasma 2024-04-09 07:23:30 F Canceled - Specimen not received 5 days past draw date Alanine aminotransferase [Enzymatic activity/volume] in Serum or Plasma 2024-04-09 07:23:30 F Canceled - Specimen not received 5 days past draw date Chloride [Moles/volume] in Serum or Plasma 2024-04-09 07:23:30 F Canceled - Specimen not received 5 days past draw date Chloride [Moles/volume] in Serum or Plasma 2024-03-08 05:09:40 97 mEq/L F 99.0-109.0 Aspartate aminotransferase [Enzymatic activity/volume] in Serum or Plasma 2024-03-07 20:27:38 47 U/L F 0.0-33.0 Alanine aminotransferase [Enzymatic activity/volume] in Serum or Plasma 2024-03-07 20:27:38 50 U/L F 10.0-49.0 Aluminum [Mass/volume] in Serum or Plasma 2024-03-07 18:10:58 10 ug/L F 0.0-9.0 Chloride [Moles/volume] in Serum or Plasma 2024-02-01 18:33:00 97 mEq/L F 99.0-109.0 Aspartate aminotransferase [Enzymatic activity/volume] in Serum or Plasma 2024-02-01 14:47:33 29 U/L F 0.0-33.0 Alanine aminotransferase [Enzymatic activity/volume] in Serum or Plasma 2024-02-01 14:47:33 26 U/L F 10.0-49.0 Chloride [Moles/volume] in Serum or Plasma 2024-01-05 06:39:54 98 mEq/L F 99.0-109.0 Aspartate aminotransferase [Enzymatic activity/volume] in Serum or Plasma 2024-01-05 03:21:34 39 U/L F 0.0-33.0 Alanine aminotransferase [Enzymatic activity/volume] in Serum or Plasma 2024-01-05 03:21:34 37 U/L F 10.0-49.0 Chloride [Moles/volume] in Serum or Plasma 2023-12-08 06:52:52 98 mEq/L F 99.0-109.0 Aspartate aminotransferase [Enzymatic activity/volume] in Serum or Plasma 2023-12-07 22:01:38 31 U/L F 0.0-33.0 Alanine aminotransferase [Enzymatic activity/volume] in Serum or Plasma 2023-12-07 22:01:38 29 U/L F 10.0-49.0 Chloride [Moles/volume] in Serum or Plasma 2023-11-04 08:11:15 96 mEq/L F 99.0-109.0 Aspartate aminotransferase [Enzymatic activity/volume] in Serum or Plasma 2023-11-04 04:43:03 37 U/L F 0.0-33.0 Alanine aminotransferase [Enzymatic activity/volume] in Serum or Plasma 2023-11-04 04:43:03 38 U/L F 10.0-49.0 Chloride [Moles/volume] in Serum or Plasma 2023-10-05 23:25:31 96 mEq/L F 99.0-109.0 Aspartate aminotransferase [Enzymatic activity/volume] in Serum or Plasma 2023-10-05 15:31:32 38 U/L F 0.0-33.0 Alanine aminotransferase [Enzymatic activity/volume] in Serum or Plasma 2023-10-05 15:31:32 41 U/L F 10.0-49.0 Aspartate aminotransferase [Enzymatic activity/volume] in Serum or Plasma 2023-08-31 18:15:36 29 U/L F 0.0-33.0 Alanine aminotransferase [Enzymatic activity/volume] in Serum or Plasma 2023-08-31 18:15:36 21 U/L F 10.0-49.0 Chloride [Moles/volume] in Serum or Plasma 2023-08-31 18:15:36 94 mEq/L F 99.0-109.0 Aspartate aminotransferase [Enzymatic activity/volume] in Serum or Plasma 2023-08-03 16:42:39 38 U/L F 0.0-33.0 Alanine aminotransferase [Enzymatic activity/volume] in Serum or Plasma 2023-08-03 16:42:39 42 U/L F 10.0-49.0 Chloride [Moles/volume] in Serum or Plasma 2023-08-03 16:42:39 94 mEq/L F 99.0-109.0 Aspartate aminotransferase [Enzymatic activity/volume] in Serum or Plasma 2023-07-06 17:14:36 30 U/L F 0.0-33.0 Alanine aminotransferase [Enzymatic activity/volume] in Serum or Plasma 2023-07-06 17:14:36 32 U/L F 10.0-49.0 Chloride [Moles/volume] in Serum or Plasma 2023-07-06 17:14:36 93 mEq/L F 99.0-109.0 Aspartate aminotransferase [Enzymatic activity/volume] in Serum or Plasma 2023-06-08 15:33:41 32 U/L F 0.0-33.0 Alanine aminotransferase [Enzymatic activity/volume] in Serum or Plasma 2023-06-08 15:33:41 37 U/L F 10.0-49.0 Chloride [Moles/volume] in Serum or Plasma 2023-06-08 15:33:41 93 mEq/L F 99.0-109.0 Alanine aminotransferase [Enzymatic activity/volume] in Serum or Plasma 2023-05-04 15:05:49 45 U/L F 10.0-49.0 Aspartate aminotransferase [Enzymatic activity/volume] in Serum or Plasma 2023-05-04 15:05:46 48 U/L F 0.0-33.0 Chloride [Moles/volume] in Serum or Plasma 2023-05-04 15:05:46 95 mEq/L F 99.0-109.0 Aspartate aminotransferase [Enzymatic activity/volume] in Serum or Plasma 2023-04-06 21:13:25 46 U/L F 0.0-33.0 Alanine aminotransferase [Enzymatic activity/volume] in Serum or Plasma 2023-04-06 21:13:25 50 U/L F 10.0-49.0 Chloride [Moles/volume] in Serum or Plasma 2023-04-06 21:13:25 96 mEq/L F 99.0-109.0 Aspartate aminotransferase [Enzymatic activity/volume] in Serum or Plasma 2023-03-02 16:12:19 34 U/L F 0.0-33.0 Alanine aminotransferase [Enzymatic activity/volume] in Serum or Plasma 2023-03-02 16:12:19 35 U/L F 10.0-49.0 Chloride [Moles/volume] in Serum or Plasma 2023-03-02 16:12:19 96 mEq/L F 99.0-109.0 Aspartate aminotransferase [Enzymatic activity/volume] in Serum or Plasma 2023-02-02 18:36:19 38 U/L F 0.0-33.0 Alanine aminotransferase [Enzymatic activity/volume] in Serum or Plasma 2023-02-02 18:36:19 35 U/L F 10.0-49.0 Chloride [Moles/volume] in Serum or Plasma 2023-02-02 18:36:19 94 mEq/L F 99.0-109.0 Aspartate aminotransferase [Enzymatic activity/volume] in Serum or Plasma 2023-01-05 20:20:20 31 U/L F 0.0-33.0 Alanine aminotransferase [Enzymatic activity/volume] in Serum or Plasma 2023-01-05 20:20:20 36 U/L F 10.0-49.0 Chloride [Moles/volume] in Serum or Plasma 2023-01-05 20:20:20 97 mEq/L F 99.0-109.0 Aspartate aminotransferase [Enzymatic activity/volume] in Serum or Plasma 2022-12-08 17:28:52 25 U/L F 0.0-33.0 Alanine aminotransferase [Enzymatic activity/volume] in Serum or Plasma 2022-12-08 17:28:52 27 U/L F 10.0-49.0 Chloride [Moles/volume] in Serum or Plasma 2022-12-08 17:28:52 95 mEq/L F 99.0-109.0 Aspartate aminotransferase [Enzymatic activity/volume] in Serum or Plasma 2022-11-03 15:53:55 25 U/L F 0.0-33.0 Alanine aminotransferase [Enzymatic activity/volume] in Serum or Plasma 2022-11-03 15:53:55 26 U/L F 10.0-49.0 Chloride [Moles/volume] in Serum or Plasma 2022-11-03 15:53:55 94 mEq/L F 99.0-109.0 Aspartate aminotransferase [Enzymatic activity/volume] in Serum or Plasma 2022-10-06 19:56:44 31 U/L F 0.0-33.0 Alanine aminotransferase [Enzymatic activity/volume] in Serum or Plasma 2022-10-06 19:56:44 34 U/L F 10.0-49.0 Chloride [Moles/volume] in Serum or Plasma 2022-10-06 19:56:44 99 mEq/L F 99.0-109.0 InfectionVaccination Description Draw Date Result/Unit Status Ref Range Result Comments Monocytes/100 leukocytes in Blood by Automated count 2025-07-16 15:04:18 5.6 % F Basophils/100 leukocytes in Blood by Automated count 2025-07-16 15:04:18 0.1 % F Eosinophils/100 leukocytes in Blood by Automated count 2025-07-16 15:04:18 5.6 % F Monocytes [#/volume] in Blood by Automated count 2025-07-16 15:04:18 532 Cells/uL F 0.0-1100.0 Eosinophils [#/volume] in Blood by Automated count 2025-07-16 15:04:18 532 Cells/uL F 0.0-700.0 Neutrophils [#/volume] in Blood by Automated count 2025-07-16 15:04:18 6868 Cells/uL F 2000.0-8800. 0 Neutrophils/100 leukocytes in Blood by Automated count 2025-07-16 15:04:16 72.3 % F Lymphocytes/100 leukocytes in Blood by Automated count 2025-07-16 15:04:16 16.4 % F Basophils [#/volume] in Blood by Automated count 2025-07-16 15:04:16 10 Cells/uL F 0.0-400.0 Leukocytes [#/volume] in Blood by Automated count 2025-07-16 15:04:16 9.5 x 10^3 cells/uL F 4.0-11.0 Lymphocytes [#/volume] in Blood by Automated count 2025-07-16 15:04:16 1558 Cells/uL F 620.0-3660.0 Neutrophils/100 leukocytes in Blood by Automated count 2025-06-18 18:30:12 70.3 % F Basophils/100 leukocytes in Blood by Automated count 2025-06-18 18:30:12 0.2 % F Lymphocytes/100 leukocytes in Blood by Automated count 2025-06-18 18:30:12 21.7 % F Monocytes/100 leukocytes in Blood by Automated count 2025-06-18 18:30:12 3.4 % F Eosinophils/100 leukocytes in Blood by Automated count 2025-06-18 18:30:12 4.3 % F Leukocytes [#/volume] in Blood by Automated count 2025-06-18 18:30:12 10.2 x 10^3 cells/uL F 4.0-11.0 Neutrophils [#/volume] in Blood by Automated count 2025-06-18 18:30:12 7192 Cells/uL F 2000.0-8800. 0 Lymphocytes [#/volume] in Blood by Automated count 2025-06-18 18:30:12 2220 Cells/uL F 620.0-3660.0 Monocytes [#/volume] in Blood by Automated count 2025-06-18 18:30:12 348 Cells/uL F 0.0-1100.0 Basophils [#/volume] in Blood by Automated count 2025-06-18 18:30:12 20 Cells/uL F 0.0-400.0 Eosinophils [#/volume] in Blood by Automated count 2025-06-18 18:30:12 440 Cells/uL F 0.0-700.0 Monocytes [#/volume] in Blood by Automated count 2025-05-21 22:48:27 540 Cells/uL F 0.0-1100.0 Neutrophils [#/volume] in Blood by Automated count 2025-05-21 22:48:27 6941 Cells/uL F 2000.0-8800. 0 Basophils [#/volume] in Blood by Automated count 2025-05-21 22:48:27 48 Cells/uL F 0.0-400.0 Eosinophils [#/volume] in Blood by Automated count 2025-05-21 22:48:27 347 Cells/uL F 0.0-700.0 Neutrophils [#/volume] in Blood by Automated count 2025-05-21 22:48:27 6941 Cells/uL F 2000.0-8800. 0 Monocytes [#/volume] in Blood by Automated count 2025-05-21 22:48:27 540 Cells/uL F 0.0-1100.0 Basophils [#/volume] in Blood by Automated count 2025-05-21 22:48:27 48 Cells/uL F 0.0-400.0 Eosinophils [#/volume] in Blood by Automated count 2025-05-21 22:48:27 347 Cells/uL F 0.0-700.0 Neutrophils [#/volume] in Blood by Automated count 2025-05-21 22:48:27 6941 Cells/uL F 2000.0-8800. 0 Monocytes [#/volume] in Blood by Automated count 2025-05-21 22:48:27 540 Cells/uL F 0.0-1100.0 Basophils [#/volume] in Blood by Automated count 2025-05-21 22:48:27 48 Cells/uL F 0.0-400.0 Eosinophils [#/volume] in Blood by Automated count 2025-05-21 22:48:27 347 Cells/uL F 0.0-700.0 Neutrophils/100 leukocytes in Blood by Automated count 2025-05-21 22:48:24 72 % F Basophils/100 leukocytes in Blood by Automated count 2025-05-21 22:48:24 0.5 % F Lymphocytes/100 leukocytes in Blood by Automated count 2025-05-21 22:48:24 18.2 % F Monocytes/100 leukocytes in Blood by Automated count 2025-05-21 22:48:24 5.6 % F Eosinophils/100 leukocytes in Blood by Automated count 2025-05-21 22:48:24 3.6 % F Leukocytes [#/volume] in Blood by Automated count 2025-05-21 22:48:24 9.6 x 10^3 cells/uL F 4.0-11.0 Lymphocytes [#/volume] in Blood by Automated count 2025-05-21 22:48:24 1754 Cells/uL F 620.0-3660.0 Neutrophils/100 leukocytes in Blood by Automated count 2025-05-21 22:48:24 72 % F Basophils/100 leukocytes in Blood by Automated count 2025-05-21 22:48:24 0.5 % F Lymphocytes/100 leukocytes in Blood by Automated count 2025-05-21 22:48:24 18.2 % F Eosinophils/100 leukocytes in Blood by Automated count 2025-05-21 22:48:24 3.6 % F Monocytes/100 leukocytes in Blood by Automated count 2025-05-21 22:48:24 5.6 % F Leukocytes [#/volume] in Blood by Automated count 2025-05-21 22:48:24 9.6 x 10^3 cells/uL F 4.0-11.0 Lymphocytes [#/volume] in Blood by Automated count 2025-05-21 22:48:24 1754 Cells/uL F 620.0-3660.0 Basophils/100 leukocytes in Blood by Automated count 2025-05-21 22:48:24 0.5 % F Neutrophils/100 leukocytes in Blood by Automated count 2025-05-21 22:48:24 72 % F Monocytes/100 leukocytes in Blood by Automated count 2025-05-21 22:48:24 5.6 % F Eosinophils/100 leukocytes in Blood by Automated count 2025-05-21 22:48:24 3.6 % F Lymphocytes/100 leukocytes in Blood by Automated count 2025-05-21 22:48:24 18.2 % F Leukocytes [#/volume] in Blood by Automated count 2025-05-21 22:48:24 9.6 x 10^3 cells/uL F 4.0-11.0 Lymphocytes [#/volume] in Blood by Automated count 2025-05-21 22:48:24 1754 Cells/uL F 620.0-3660.0 Neutrophils/100 leukocytes in Blood by Automated count 2025-04-03 13:33:14 70.3 % F Monocytes/100 leukocytes in Blood by Automated count 2025-04-03 13:33:14 4.3 % F Eosinophils/100 leukocytes in Blood by Automated count 2025-04-03 13:33:14 5.2 % F Neutrophils [#/volume] in Blood by Automated count 2025-04-03 13:33:14 6482 Cells/uL F 2000.0-8800. 0 Lymphocytes [#/volume] in Blood by Automated count 2025-04-03 13:33:14 1826 Cells/uL F 620.0-3660.0 Basophils [#/volume] in Blood by Automated count 2025-04-03 13:33:14 37 Cells/uL F 0.0-400.0 Eosinophils [#/volume] in Blood by Automated count 2025-04-03 13:33:14 479 Cells/uL F 0.0-700.0 Basophils/100 leukocytes in Blood by Automated count 2025-04-03 13:33:14 0.4 % F Leukocytes [#/volume] in Blood by Automated count 2025-04-03 13:33:14 9.2 x 10^3 cells/uL F 4.0-11.0 Lymphocytes/100 leukocytes in Blood by Automated count 2025-04-03 13:33:14 19.8 % F Monocytes [#/volume] in Blood by Automated count 2025-04-03 13:33:14 396 Cells/uL F 0.0-1100.0 Lymphocytes/100 leukocytes in Blood by Automated count 2025-02-21 13:31:09 23 % F Neutrophils/100 leukocytes in Blood by Automated count 2025-02-21 13:31:09 66.6 % F Basophils/100 leukocytes in Blood by Automated count 2025-02-21 13:31:09 0.1 % F Eosinophils/100 leukocytes in Blood by Automated count 2025-02-21 13:31:09 5.7 % F Monocytes/100 leukocytes in Blood by Automated count 2025-02-21 13:31:09 4.6 % F Monocytes [#/volume] in Blood by Automated count 2025-02-21 13:31:09 486 Cells/uL F 0.0-1100.0 Basophils [#/volume] in Blood by Automated count 2025-02-21 13:31:09 11 Cells/uL F 0.0-400.0 Eosinophils [#/volume] in Blood by Automated count 2025-02-21 13:31:09 602 Cells/uL F 0.0-700.0 Neutrophils [#/volume] in Blood by Automated count 2025-02-21 13:31:09 7040 Cells/uL F 2000.0-8800. 0 Leukocytes [#/volume] in Blood by Automated count 2025-02-21 13:31:09 10.6 x 10^3 cells/uL F 4.0-11.0 Lymphocytes [#/volume] in Blood by Automated count 2025-02-21 13:31:09 2431 Cells/uL F 620.0-3660.0 Eosinophils/100 leukocytes in Blood by Automated count 2025-02-21 13:31:09 5.7 % F Basophils/100 leukocytes in Blood by Automated count 2025-02-21 13:31:09 0.1 % F Leukocytes [#/volume] in Blood by Automated count 2025-02-21 13:31:09 10.6 x 10^3 cells/uL F 4.0-11.0 Neutrophils [#/volume] in Blood by Automated count 2025-02-21 13:31:09 7040 Cells/uL F 2000.0-8800. 0 Monocytes [#/volume] in Blood by Automated count 2025-02-21 13:31:09 486 Cells/uL F 0.0-1100.0 Monocytes/100 leukocytes in Blood by Automated count 2025-02-21 13:31:09 4.6 % F Neutrophils/100 leukocytes in Blood by Automated count 2025-02-21 13:31:09 66.6 % F Lymphocytes/100 leukocytes in Blood by Automated count 2025-02-21 13:31:09 23 % F Lymphocytes [#/volume] in Blood by Automated count 2025-02-21 13:31:09 2431 Cells/uL F 620.0-3660.0 Basophils [#/volume] in Blood by Automated count 2025-02-21 13:31:09 11 Cells/uL F 0.0-400.0 Eosinophils [#/volume] in Blood by Automated count 2025-02-21 13:31:09 602 Cells/uL F 0.0-700.0 Monocytes/100 leukocytes in Blood by Automated count 2025-01-01 21:18:18 6.6 % F Neutrophils/100 leukocytes in Blood by Automated count 2025-01-01 21:18:18 71.8 % F Lymphocytes/100 leukocytes in Blood by Automated count 2025-01-01 21:18:18 16.4 % F Eosinophils/100 leukocytes in Blood by Automated count 2025-01-01 21:18:18 5 % F Basophils/100 leukocytes in Blood by Automated count 2025-01-01 21:18:18 0.3 % F Monocytes [#/volume] in Blood by Automated count 2025-01-01 21:18:18 475 Cells/uL F 0.0-1100.0 Eosinophils [#/volume] in Blood by Automated count 2025-01-01 21:18:18 360 Cells/uL F 0.0-700.0 Basophils [#/volume] in Blood by Automated count 2025-01-01 21:18:18 22 Cells/uL F 0.0-400.0 Neutrophils [#/volume] in Blood by Automated count 2025-01-01 21:18:18 5162 Cells/uL F 2000.0-8800. 0 Leukocytes [#/volume] in Blood by Automated count 2025-01-01 21:18:18 7.2 x 10^3 cells/uL F 4.0-11.0 Lymphocytes [#/volume] in Blood by Automated count 2025-01-01 21:18:18 1179 Cells/uL F 620.0-3660.0 Neutrophils/100 leukocytes in Blood by Automated count 2024-12-04 16:31:10 64.3 % F Monocytes/100 leukocytes in Blood by Automated count 2024-12-04 16:31:10 3.5 % F Basophils/100 leukocytes in Blood by Automated count 2024-12-04 16:31:10 0.3 % F Lymphocytes/100 leukocytes in Blood by Automated count 2024-12-04 16:31:10 25.2 % F Eosinophils/100 leukocytes in Blood by Automated count 2024-12-04 16:31:10 6.7 % F Monocytes [#/volume] in Blood by Automated count 2024-12-04 16:31:10 341 Cells/uL F 0.0-1100.0 Basophils [#/volume] in Blood by Automated count 2024-12-04 16:31:10 29 Cells/uL F 0.0-400.0 Eosinophils [#/volume] in Blood by Automated count 2024-12-04 16:31:10 653 Cells/uL F 0.0-700.0 Neutrophils [#/volume] in Blood by Automated count 2024-12-04 16:31:10 6263 Cells/uL F 2000.0-8800. 0 Leukocytes [#/volume] in Blood by Automated count 2024-12-04 16:31:10 9.7 x 10^3 cells/uL F 4.0-11.0 Lymphocytes [#/volume] in Blood by Automated count 2024-12-04 16:31:10 2454 Cells/uL F 620.0-3660.0 Basophils/100 leukocytes in Blood by Automated count 2024-11-09 17:39:23 0.3 % F Eosinophils/100 leukocytes in Blood by Automated count 2024-11-09 17:39:23 4.7 % F Lymphocytes/100 leukocytes in Blood by Automated count 2024-11-09 17:39:23 25.7 % F Monocytes/100 leukocytes in Blood by Automated count 2024-11-09 17:39:23 7.9 % F Neutrophils/100 leukocytes in Blood by Automated count 2024-11-09 17:39:23 61.5 % F Eosinophils [#/volume] in Blood by Automated count 2024-11-09 17:39:23 405 Cells/uL F 0.0-700.0 Basophils [#/volume] in Blood by Automated count 2024-11-09 17:39:23 26 Cells/uL F 0.0-400.0 Monocytes [#/volume] in Blood by Automated count 2024-11-09 17:39:23 681 Cells/uL F 0.0-1100.0 Neutrophils [#/volume] in Blood by Automated count 2024-11-09 17:39:23 5301 Cells/uL F 2000.0-8800. 0 Leukocytes [#/volume] in Blood by Automated count 2024-11-09 17:39:23 8.6 x 10^3 cells/uL F 4.0-11.0 Lymphocytes [#/volume] in Blood by Automated count 2024-11-09 17:39:23 2215 Cells/uL F 620.0-3660.0 Monocytes/100 leukocytes in Blood by Automated count 2024-10-04 15:32:17 5.7 % F Basophils/100 leukocytes in Blood by Automated count 2024-10-04 15:32:17 0.4 % F Lymphocytes/100 leukocytes in Blood by Automated count 2024-10-04 15:32:17 15.5 % F Eosinophils/100 leukocytes in Blood by Automated count 2024-10-04 15:32:17 6.8 % F Neutrophils/100 leukocytes in Blood by Automated count 2024-10-04 15:32:17 71.6 % F Monocytes [#/volume] in Blood by Automated count 2024-10-04 15:32:17 488 Cells/uL F 0.0-1100.0 Basophils [#/volume] in Blood by Automated count 2024-10-04 15:32:17 34 Cells/uL F 0.0-400.0 Eosinophils [#/volume] in Blood by Automated count 2024-10-04 15:32:17 582 Cells/uL F 0.0-700.0 Neutrophils [#/volume] in Blood by Automated count 2024-10-04 15:32:17 6129 Cells/uL F 2000.0-8800. 0 Leukocytes [#/volume] in Blood by Automated count 2024-10-04 15:32:17 8.6 x 10^3 cells/uL F 4.0-11.0 Lymphocytes [#/volume] in Blood by Automated count 2024-10-04 15:32:17 1327 Cells/uL F 620.0-3660.0 Neutrophils/100 leukocytes in Blood by Automated count 2024-09-07 01:04:23 60.7 % F Eosinophils/100 leukocytes in Blood by Automated count 2024-09-07 01:04:23 5.1 % F Basophils/100 leukocytes in Blood by Automated count 2024-09-07 01:04:23 0.4 % F Lymphocytes/100 leukocytes in Blood by Automated count 2024-09-07 01:04:23 27.4 % F Monocytes/100 leukocytes in Blood by Automated count 2024-09-07 01:04:23 6.4 % F Basophils [#/volume] in Blood by Automated count 2024-09-07 01:04:23 41 Cells/uL F 0.0-400.0 Eosinophils [#/volume] in Blood by Automated count 2024-09-07 01:04:23 527 Cells/uL F 0.0-700.0 Monocytes [#/volume] in Blood by Automated count 2024-09-07 01:04:23 662 Cells/uL F 0.0-1100.0 Neutrophils [#/volume] in Blood by Automated count 2024-09-07 01:04:23 6276 Cells/uL F 2000.0-8800. 0 Leukocytes [#/volume] in Blood by Automated count 2024-09-07 01:04:23 10.3 x 10^3 cells/uL F 4.0-11.0 Lymphocytes [#/volume] in Blood by Automated count 2024-09-07 01:04:23 2833 Cells/uL F 620.0-3660.0 Lymphocytes/100 leukocytes in Blood by Automated count 2024-08-10 19:04:16 23.9 % F Eosinophils/100 leukocytes in Blood by Automated count 2024-08-10 19:04:16 3.8 % F Neutrophils/100 leukocytes in Blood by Automated count 2024-08-10 19:04:16 66.5 % F Basophils/100 leukocytes in Blood by Automated count 2024-08-10 19:04:16 0.5 % F Monocytes [#/volume] in Blood by Automated count 2024-08-10 19:04:16 506 Cell/uL F 0.0-1100.0 Monocytes/100 leukocytes in Blood by Automated count 2024-08-10 19:04:16 5.3 % F Eosinophils [#/volume] in Blood by Automated count 2024-08-10 19:04:16 363 Cell/uL F 0.0-700.0 Basophils [#/volume] in Blood by Automated count 2024-08-10 19:04:16 48 Cell/uL F 0.0-400.0 Neutrophils [#/volume] in Blood by Automated count 2024-08-10 19:04:16 6351 Cell/uL F 2000.0-8800. 0 Leukocytes [#/volume] in Blood by Automated count 2024-08-10 19:04:16 9.6 x 10^3 cells/uL F 4.0-11.0 Lymphocytes [#/volume] in Blood by Automated count 2024-08-10 19:04:16 2282 Cell/uL F 620.0-3660.0 Eosinophils/100 leukocytes in Blood by Automated count 2024-07-04 16:17:10 6 % F Monocytes/100 leukocytes in Blood by Automated count 2024-07-04 16:17:10 4.3 % F Basophils/100 leukocytes in Blood by Automated count 2024-07-04 16:17:10 0.5 % F Eosinophils [#/volume] in Blood by Automated count 2024-07-04 16:17:10 562 Cell/uL F 0.0-700.0 Leukocytes [#/volume] in Blood by Automated count 2024-07-04 16:17:10 9.4 x 10^3 cells/uL F 4.0-11.0 Neutrophils/100 leukocytes in Blood by Automated count 2024-07-04 16:17:09 68.8 % F Lymphocytes/100 leukocytes in Blood by Automated count 2024-07-04 16:17:09 20.4 % F Monocytes [#/volume] in Blood by Automated count 2024-07-04 16:17:09 402 Cell/uL F 0.0-1100.0 Basophils [#/volume] in Blood by Automated count 2024-07-04 16:17:09 47 Cell/uL F 0.0-400.0 Neutrophils [#/volume] in Blood by Automated count 2024-07-04 16:17:09 6440 Cell/uL F 2000.0-8800. 0 Lymphocytes [#/volume] in Blood by Automated count 2024-07-04 16:17:09 1909 Cell/uL F 620.0-3660.0 Neutrophils/100 leukocytes in Blood by Automated count 2024-06-13 15:30:49 63.5 % F Eosinophils/100 leukocytes in Blood by Automated count 2024-06-13 15:30:49 4.9 % F Monocytes/100 leukocytes in Blood by Automated count 2024-06-13 15:30:49 4.9 % F Lymphocytes/100 leukocytes in Blood by Automated count 2024-06-13 15:30:49 26.4 % F Basophils/100 leukocytes in Blood by Automated count 2024-06-13 15:30:49 0.4 % F Monocytes [#/volume] in Blood by Automated count 2024-06-13 15:30:49 514 Cell/uL F 0.0-1100.0 Basophils [#/volume] in Blood by Automated count 2024-06-13 15:30:49 42 Cell/uL F 0.0-400.0 Eosinophils [#/volume] in Blood by Automated count 2024-06-13 15:30:49 514 Cell/uL F 0.0-700.0 Neutrophils [#/volume] in Blood by Automated count 2024-06-13 15:30:49 6668 Cell/uL F 2000.0-8800. 0 Leukocytes [#/volume] in Blood by Automated count 2024-06-13 15:30:49 10.5 x 10^3 cells/uL F 4.0-11.0 Lymphocytes [#/volume] in Blood by Automated count 2024-06-13 15:30:49 2772 Cell/uL F 620.0-3660.0 Basophils [#/volume] in Blood by Automated count 2024-06-06 13:39:45 F Recollect - Shipping temp out of range Lymphocytes/100 leukocytes in Blood by Automated count 2024-06-06 13:39:45 F Recollect - Shipping temp out of range Monocytes [#/volume] in Blood by Automated count 2024-06-06 13:39:45 F Recollect - Shipping temp out of range Monocytes/100 leukocytes in Blood by Automated count 2024-06-06 13:39:45 F Recollect - Shipping temp out of range Neutrophils [#/volume] in Blood by Automated count 2024-06-06 13:39:45 F Recollect - Shipping temp out of range Eosinophils/100 leukocytes in Blood by Automated count 2024-06-06 13:39:45 F Recollect - Shipping temp out of range Eosinophils [#/volume] in Blood by Automated count 2024-06-06 13:39:45 F Recollect - Shipping temp out of range Basophils/100 leukocytes in Blood by Automated count 2024-06-06 13:39:45 F Recollect - Shipping temp out of range Neutrophils/100 leukocytes in Blood by Automated count 2024-06-06 13:39:45 F Recollect - Shipping temp out of range Leukocytes [#/volume] in Blood by Automated count 2024-06-06 13:39:45 F Recollect - Shipping temp out of range Lymphocytes [#/volume] in Blood by Automated count 2024-06-06 13:39:45 F Recollect - Shipping temp out of range Basophils/100 leukocytes in Blood by Automated count 2024-05-02 20:57:37 0.4 % F Eosinophils/100 leukocytes in Blood by Automated count 2024-05-02 20:57:37 4.4 % F Lymphocytes/100 leukocytes in Blood by Automated count 2024-05-02 20:57:37 20 % F Neutrophils/100 leukocytes in Blood by Automated count 2024-05-02 20:57:37 69.2 % F Monocytes/100 leukocytes in Blood by Automated count 2024-05-02 20:57:37 5.9 % F Monocytes [#/volume] in Blood by Automated count 2024-05-02 20:57:37 484 Cell/uL F 0.0-1100.0 Basophils [#/volume] in Blood by Automated count 2024-05-02 20:57:37 33 Cell/uL F 0.0-400.0 Eosinophils [#/volume] in Blood by Automated count 2024-05-02 20:57:37 361 Cell/uL F 0.0-700.0 Neutrophils [#/volume] in Blood by Automated count 2024-05-02 20:57:37 5674 Cell/uL F 2000.0-8800. 0 Leukocytes [#/volume] in Blood by Automated count 2024-05-02 20:57:37 8.2 x 10^3 cells/uL F 4.0-11.0 Lymphocytes [#/volume] in Blood by Automated count 2024-05-02 20:57:37 1640 Cell/uL F 620.0-3660.0 Monocytes/100 leukocytes in Blood by Automated count 2024-04-11 19:02:40 6.5 % F Lymphocytes/100 leukocytes in Blood by Automated count 2024-04-11 19:02:40 19.4 % F Neutrophils/100 leukocytes in Blood by Automated count 2024-04-11 19:02:40 67.9 % F Basophils/100 leukocytes in Blood by Automated count 2024-04-11 19:02:40 0.6 % F Eosinophils/100 leukocytes in Blood by Automated count 2024-04-11 19:02:40 5.6 % F Monocytes [#/volume] in Blood by Automated count 2024-04-11 19:02:40 499 Cell/uL F 0.0-1100.0 Basophils [#/volume] in Blood by Automated count 2024-04-11 19:02:40 46 Cell/uL F 0.0-400.0 Eosinophils [#/volume] in Blood by Automated count 2024-04-11 19:02:40 430 Cell/uL F 0.0-700.0 Neutrophils [#/volume] in Blood by Automated count 2024-04-11 19:02:40 5208 Cell/uL F 2000.0-8800. 0 Leukocytes [#/volume] in Blood by Automated count 2024-04-11 19:02:40 7.7 x 10^3 cells/uL F 4.0-11.0 Lymphocytes [#/volume] in Blood by Automated count 2024-04-11 19:02:40 1488 Cell/uL F 620.0-3660.0 Basophils [#/volume] in Blood by Automated count 2024-04-09 07:23:30 F Canceled - Specimen not received 5 days past draw date Leukocytes [#/volume] in Blood by Automated count 2024-04-09 07:23:30 F Canceled - Specimen not received 5 days past draw date Monocytes [#/volume] in Blood by Automated count 2024-04-09 07:23:30 F Canceled - Specimen not received 5 days past draw date Lymphocytes [#/volume] in Blood by Automated count 2024-04-09 07:23:30 F Canceled - Specimen not received 5 days past draw date Neutrophils/100 leukocytes in Blood by Automated count 2024-04-09 07:23:30 F Canceled - Specimen not received 5 days past draw date Eosinophils/100 leukocytes in Blood by Automated count 2024-04-09 07:23:30 F Canceled - Specimen not received 5 days past draw date Eosinophils [#/volume] in Blood by Automated count 2024-04-09 07:23:30 F Canceled - Specimen not received 5 days past draw date Lymphocytes/100 leukocytes in Blood by Automated count 2024-04-09 07:23:30 F Canceled - Specimen not received 5 days past draw date Neutrophils [#/volume] in Blood by Automated count 2024-04-09 07:23:30 F Canceled - Specimen not received 5 days past draw date Basophils/100 leukocytes in Blood by Automated count 2024-04-09 07:23:30 F Canceled - Specimen not received 5 days past draw date Monocytes/100 leukocytes in Blood by Automated count 2024-04-09 07:23:30 F Canceled - Specimen not received 5 days past draw date Eosinophils/100 leukocytes in Blood by Automated count 2024-03-07 17:06:39 7.5 % F Lymphocytes/100 leukocytes in Blood by Automated count 2024-03-07 17:06:39 22.9 % F Basophils/100 leukocytes in Blood by Automated count 2024-03-07 17:06:39 0.4 % F Neutrophils/100 leukocytes in Blood by Automated count 2024-03-07 17:06:39 64.3 % F Monocytes/100 leukocytes in Blood by Automated count 2024-03-07 17:06:39 5 % F Monocytes [#/volume] in Blood by Automated count 2024-03-07 17:06:39 476 Cell/uL F 0.0-1100.0 Eosinophils [#/volume] in Blood by Automated count 2024-03-07 17:06:39 715 Cell/uL F 0.0-700.0 Basophils [#/volume] in Blood by Automated count 2024-03-07 17:06:39 38 Cell/uL F 0.0-400.0 Neutrophils [#/volume] in Blood by Automated count 2024-03-07 17:06:39 6128 Cell/uL F 2000.0-8800. 0 Leukocytes [#/volume] in Blood by Automated count 2024-03-07 17:06:39 9.5 x 10^3 cells/uL F 4.0-11.0 Lymphocytes [#/volume] in Blood by Automated count 2024-03-07 17:06:39 2182 Cell/uL F 620.0-3660.0 Lymphocytes/100 leukocytes in Blood by Automated count 2024-02-01 14:32:44 25.7 % F Eosinophils/100 leukocytes in Blood by Automated count 2024-02-01 14:32:44 6.9 % F Neutrophils/100 leukocytes in Blood by Automated count 2024-02-01 14:32:44 61.8 % F Basophils/100 leukocytes in Blood by Automated count 2024-02-01 14:32:44 0.5 % F Monocytes/100 leukocytes in Blood by Automated count 2024-02-01 14:32:44 5.1 % F Monocytes [#/volume] in Blood by Automated count 2024-02-01 14:32:44 482 Cell/uL F 0.0-1100.0 Basophils [#/volume] in Blood by Automated count 2024-02-01 14:32:44 47 Cell/uL F 0.0-400.0 Eosinophils [#/volume] in Blood by Automated count 2024-02-01 14:32:44 653 Cell/uL F 0.0-700.0 Neutrophils [#/volume] in Blood by Automated count 2024-02-01 14:32:44 5846 Cell/uL F 2000.0-8800. 0 Leukocytes [#/volume] in Blood by Automated count 2024-02-01 14:32:44 9.5 x 10^3 cells/uL F 4.0-11.0 Lymphocytes [#/volume] in Blood by Automated count 2024-02-01 14:32:44 2431 Cell/uL F 620.0-3660.0 Eosinophils/100 leukocytes in Blood by Automated count 2024-01-04 18:44:39 5.9 % F Neutrophils/100 leukocytes in Blood by Automated count 2024-01-04 18:44:39 63 % F Monocytes/100 leukocytes in Blood by Automated count 2024-01-04 18:44:39 6.2 % F Lymphocytes/100 leukocytes in Blood by Automated count 2024-01-04 18:44:39 24.5 % F Basophils/100 leukocytes in Blood by Automated count 2024-01-04 18:44:39 0.3 % F Monocytes [#/volume] in Blood by Automated count 2024-01-04 18:44:39 517 Cell/uL F 0.0-1100.0 Eosinophils [#/volume] in Blood by Automated count 2024-01-04 18:44:39 492 Cell/uL F 0.0-700.0 Basophils [#/volume] in Blood by Automated count 2024-01-04 18:44:39 25 Cell/uL F 0.0-400.0 Neutrophils [#/volume] in Blood by Automated count 2024-01-04 18:44:39 5254 Cell/uL F 2000.0-8800. 0 Leukocytes [#/volume] in Blood by Automated count 2024-01-04 18:44:39 8.3 x 10^3 cells/uL F 4.0-11.0 Lymphocytes [#/volume] in Blood by Automated count 2024-01-04 18:44:39 2043 Cell/uL F 620.0-3660.0 Lymphocytes/100 leukocytes in Blood by Automated count 2023-12-07 20:14:09 24 % F Monocytes [#/volume] in Blood by Automated count 2023-12-07 20:14:09 397 Cell/uL F 0.0-1100.0 Lymphocytes [#/volume] in Blood by Automated count 2023-12-07 20:14:09 2165 Cell/uL F 620.0-3660.0 Monocytes/100 leukocytes in Blood by Automated count 2023-12-07 20:14:06 4.4 % F Basophils/100 leukocytes in Blood by Automated count 2023-12-07 20:14:06 0.3 % F Neutrophils/100 leukocytes in Blood by Automated count 2023-12-07 20:14:06 65.7 % F Eosinophils/100 leukocytes in Blood by Automated count 2023-12-07 20:14:06 5.4 % F Basophils [#/volume] in Blood by Automated count 2023-12-07 20:14:06 27 Cell/uL F 0.0-400.0 Eosinophils [#/volume] in Blood by Automated count 2023-12-07 20:14:06 487 Cell/uL F 0.0-700.0 Neutrophils [#/volume] in Blood by Automated count 2023-12-07 20:14:06 5926 Cell/uL F 2000.0-8800. 0 Leukocytes [#/volume] in Blood by Automated count 2023-12-07 20:14:06 9 x 10^3 cells/uL F 4.0-11.0 Neutrophils/100 leukocytes in Blood by Automated count 2023-11-04 00:18:31 66.4 % F Basophils/100 leukocytes in Blood by Automated count 2023-11-04 00:18:27 0.4 % F Eosinophils/100 leukocytes in Blood by Automated count 2023-11-04 00:18:27 5.7 % F Lymphocytes/100 leukocytes in Blood by Automated count 2023-11-04 00:18:27 21.6 % F Monocytes/100 leukocytes in Blood by Automated count 2023-11-04 00:18:27 5.9 % F Monocytes [#/volume] in Blood by Automated count 2023-11-04 00:18:27 580 Cell/uL F 0.0-1100.0 Basophils [#/volume] in Blood by Automated count 2023-11-04 00:18:27 39 Cell/uL F 0.0-400.0 Eosinophils [#/volume] in Blood by Automated count 2023-11-04 00:18:27 560 Cell/uL F 0.0-700.0 Neutrophils [#/volume] in Blood by Automated count 2023-11-04 00:18:27 6527 Cell/uL F 2000.0-8800. 0 Leukocytes [#/volume] in Blood by Automated count 2023-11-04 00:18:27 9.8 x 10^3 cells/uL F 4.0-11.0 Lymphocytes [#/volume] in Blood by Automated count 2023-11-04 00:18:27 2123 Cell/uL F 620.0-3660.0 Monocytes/100 leukocytes in Blood by Automated count 2023-10-05 16:40:40 4 % F Neutrophils/100 leukocytes in Blood by Automated count 2023-10-05 16:40:40 66.1 % F Basophils/100 leukocytes in Blood by Automated count 2023-10-05 16:40:38 0.4 % F Eosinophils/100 leukocytes in Blood by Automated count 2023-10-05 16:40:38 7.7 % F Lymphocytes/100 leukocytes in Blood by Automated count 2023-10-05 16:40:38 21.9 % F Monocytes [#/volume] in Blood by Automated count 2023-10-05 16:40:38 332 Cell/uL F 0.0-1100.0 Basophils [#/volume] in Blood by Automated count 2023-10-05 16:40:38 33 Cell/uL F 0.0-400.0 Eosinophils [#/volume] in Blood by Automated count 2023-10-05 16:40:38 640 Cell/uL F 0.0-700.0 Neutrophils [#/volume] in Blood by Automated count 2023-10-05 16:40:38 5493 Cell/uL F 2000.0-8800. 0 Leukocytes [#/volume] in Blood by Automated count 2023-10-05 16:40:38 8.3 x 10^3 cells/uL F 4.0-11.0 Lymphocytes [#/volume] in Blood by Automated count 2023-10-05 16:40:38 1820 Cell/uL F 620.0-3660.0 Lymphocytes/100 leukocytes in Blood by Automated count 2023-08-31 18:25:42 20.1 % F Eosinophils/100 leukocytes in Blood by Automated count 2023-08-31 18:25:42 5.2 % F Monocytes/100 leukocytes in Blood by Automated count 2023-08-31 18:25:42 3.3 % F Basophils/100 leukocytes in Blood by Automated count 2023-08-31 18:25:42 0.2 % F Neutrophils/100 leukocytes in Blood by Automated count 2023-08-31 18:25:42 71.2 % F Monocytes [#/volume] in Blood by Automated count 2023-08-31 18:25:42 360 Cell/uL F 0.0-1100.0 Basophils [#/volume] in Blood by Automated count 2023-08-31 18:25:42 22 Cell/uL F 0.0-400.0 Eosinophils [#/volume] in Blood by Automated count 2023-08-31 18:25:42 567 Cell/uL F 0.0-700.0 Neutrophils [#/volume] in Blood by Automated count 2023-08-31 18:25:42 7761 Cell/uL F 2000.0-8800. 0 Lymphocytes [#/volume] in Blood by Automated count 2023-08-31 18:25:42 2191 Cell/uL F 620.0-3660.0 Leukocytes [#/volume] in Blood by Automated count 2023-08-31 18:25:41 10.9 x 10^3 cells/uL F 4.0-11.0 Lymphocytes/100 leukocytes in Blood by Automated count 2023-08-03 13:39:31 22.3 % F Neutrophils/100 leukocytes in Blood by Automated count 2023-08-03 13:39:31 67.2 % F Basophils/100 leukocytes in Blood by Automated count 2023-08-03 13:39:31 0.3 % F Monocytes/100 leukocytes in Blood by Automated count 2023-08-03 13:39:31 4.9 % F Eosinophils/100 leukocytes in Blood by Automated count 2023-08-03 13:39:31 5.3 % F Monocytes [#/volume] in Blood by Automated count 2023-08-03 13:39:31 511 Cell/uL F 0.0-1100.0 Basophils [#/volume] in Blood by Automated count 2023-08-03 13:39:31 31 Cell/uL F 0.0-400.0 Eosinophils [#/volume] in Blood by Automated count 2023-08-03 13:39:31 552 Cell/uL F 0.0-700.0 Neutrophils [#/volume] in Blood by Automated count 2023-08-03 13:39:31 7002 Cell/uL F 2000.0-8800. 0 Leukocytes [#/volume] in Blood by Automated count 2023-08-03 13:39:31 10.4 x 10^3 cells/uL F 4.0-11.0 Lymphocytes [#/volume] in Blood by Automated count 2023-08-03 13:39:31 2324 Cell/uL F 620.0-3660.0 Neutrophils/100 leukocytes in Blood by Automated count 2023-07-07 01:37:33 65.1 % F Monocytes/100 leukocytes in Blood by Automated count 2023-07-07 01:37:33 4.8 % F Eosinophils/100 leukocytes in Blood by Automated count 2023-07-07 01:37:33 4.6 % F Lymphocytes/100 leukocytes in Blood by Automated count 2023-07-07 01:37:33 25.1 % F Basophils/100 leukocytes in Blood by Automated count 2023-07-07 01:37:33 0.3 % F Monocytes [#/volume] in Blood by Automated count 2023-07-07 01:37:33 502 Cell/uL F 0.0-1100.0 Basophils [#/volume] in Blood by Automated count 2023-07-07 01:37:33 31 Cell/uL F 0.0-400.0 Eosinophils [#/volume] in Blood by Automated count 2023-07-07 01:37:33 481 Cell/uL F 0.0-700.0 Neutrophils [#/volume] in Blood by Automated count 2023-07-07 01:37:33 6809 Cell/uL F 2000.0-8800. 0 Leukocytes [#/volume] in Blood by Automated count 2023-07-07 01:37:33 10.5 x 10^3 cells/uL F 4.0-11.0 Lymphocytes [#/volume] in Blood by Automated count 2023-07-07 01:37:33 2625 Cell/uL F 620.0-3660.0 Basophils/100 leukocytes in Blood by Automated count 2023-06-08 16:25:39 0.3 % F Neutrophils/100 leukocytes in Blood by Automated count 2023-06-08 16:25:39 78.1 % F Lymphocytes/100 leukocytes in Blood by Automated count 2023-06-08 16:25:39 16.7 % F Eosinophils/100 leukocytes in Blood by Automated count 2023-06-08 16:25:39 0.6 % F Monocytes/100 leukocytes in Blood by Automated count 2023-06-08 16:25:39 4.3 % F Monocytes [#/volume] in Blood by Automated count 2023-06-08 16:25:39 403 Cell/uL F 0.0-1100.0 Basophils [#/volume] in Blood by Automated count 2023-06-08 16:25:39 28 Cell/uL F 0.0-400.0 Eosinophils [#/volume] in Blood by Automated count 2023-06-08 16:25:39 56 Cell/uL F 0.0-700.0 Neutrophils [#/volume] in Blood by Automated count 2023-06-08 16:25:39 7318 Cell/uL F 2000.0-8800. 0 Leukocytes [#/volume] in Blood by Automated count 2023-06-08 16:25:39 9.4 x 10^3 cells/uL F 4.0-11.0 Lymphocytes [#/volume] in Blood by Automated count 2023-06-08 16:25:39 1565 Cell/uL F 620.0-3660.0 Neutrophils/100 leukocytes in Blood by Automated count 2023-05-04 23:28:59 67.8 % F Eosinophils/100 leukocytes in Blood by Automated count 2023-05-04 23:28:59 7 % F Lymphocytes/100 leukocytes in Blood by Automated count 2023-05-04 23:28:59 18.1 % F Monocytes/100 leukocytes in Blood by Automated count 2023-05-04 23:28:59 6.9 % F Monocytes [#/volume] in Blood by Automated count 2023-05-04 23:28:59 644 Cell/uL F 0.0-1100.0 Basophils/100 leukocytes in Blood by Automated count 2023-05-04 23:28:59 0.3 % F Basophils [#/volume] in Blood by Automated count 2023-05-04 23:28:59 28 Cell/uL F 0.0-400.0 Eosinophils [#/volume] in Blood by Automated count 2023-05-04 23:28:59 653 Cell/uL F 0.0-700.0 Neutrophils [#/volume] in Blood by Automated count 2023-05-04 23:28:59 6326 Cell/uL F 2000.0-8800. 0 Leukocytes [#/volume] in Blood by Automated count 2023-05-04 23:28:59 9.3 x 10^3 cells/uL F 4.0-11.0 Lymphocytes [#/volume] in Blood by Automated count 2023-05-04 23:28:59 1689 Cell/uL F 620.0-3660.0 Neutrophils [#/volume] in Blood by Automated count 2023-04-06 20:15:27 5359.4 Cell/uL F 2000.0-8800. 0 Basophils/100 leukocytes in Blood by Automated count 2023-04-06 20:15:24 0.2 % F Eosinophils/100 leukocytes in Blood by Automated count 2023-04-06 20:15:24 7.5 % F Neutrophils/100 leukocytes in Blood by Automated count 2023-04-06 20:15:24 63.5 % F Monocytes/100 leukocytes in Blood by Automated count 2023-04-06 20:15:24 5.5 % F Lymphocytes/100 leukocytes in Blood by Automated count 2023-04-06 20:15:24 23.3 % F Monocytes [#/volume] in Blood by Automated count 2023-04-06 20:15:24 464.2 Cell/uL F 0.0-1100.0 Basophils [#/volume] in Blood by Automated count 2023-04-06 20:15:24 16.88 Cell/uL F 0.0-400.0 Eosinophils [#/volume] in Blood by Automated count 2023-04-06 20:15:24 633 Cell/uL F 0.0-700.0 Leukocytes [#/volume] in Blood by Automated count 2023-04-06 20:15:24 8.4 x 10^3 cells/uL F 4.0-11.0 Lymphocytes [#/volume] in Blood by Automated count 2023-04-06 20:15:24 1966.52 Cell/uL F 620.0-3660.0 Basophils/100 leukocytes in Blood by Automated count 2023-03-02 15:42:19 0.1 % F Lymphocytes/100 leukocytes in Blood by Automated count 2023-03-02 15:42:19 26.1 % F Eosinophils/100 leukocytes in Blood by Automated count 2023-03-02 15:42:19 6.4 % F Monocytes/100 leukocytes in Blood by Automated count 2023-03-02 15:42:19 4.4 % F Neutrophils/100 leukocytes in Blood by Automated count 2023-03-02 15:42:19 63 % F Monocytes [#/volume] in Blood by Automated count 2023-03-02 15:42:19 433.84 Cell/uL F 0.0-1100.0 Basophils [#/volume] in Blood by Automated count 2023-03-02 15:42:19 9.86 Cell/uL F 0.0-400.0 Eosinophils [#/volume] in Blood by Automated count 2023-03-02 15:42:19 631.04 Cell/uL F 0.0-700.0 Lymphocytes [#/volume] in Blood by Automated count 2023-03-02 15:42:19 2573.46 Cell/uL F 1100.0-4800. 0 Neutrophils [#/volume] in Blood by Automated count 2023-03-02 15:42:19 6211.8 Cell/uL F 2000.0-8800. 0 Leukocytes [#/volume] in Blood by Automated count 2023-03-02 15:42:19 9.9 x 10^3 cells/uL F 4.5-11.0 Lymphocytes/100 leukocytes in Blood by Automated count 2023-02-02 15:13:22 24.8 % F Eosinophils/100 leukocytes in Blood by Automated count 2023-02-02 15:13:22 6.5 % F Monocytes/100 leukocytes in Blood by Automated count 2023-02-02 15:13:22 4.9 % F Neutrophils/100 leukocytes in Blood by Automated count 2023-02-02 15:13:22 63.5 % F Basophils/100 leukocytes in Blood by Automated count 2023-02-02 15:13:22 0.2 % F Monocytes [#/volume] in Blood by Automated count 2023-02-02 15:13:22 414.54 Cell/uL F 0.0-1100.0 Basophils [#/volume] in Blood by Automated count 2023-02-02 15:13:22 16.92 Cell/uL F 0.0-400.0 Eosinophils [#/volume] in Blood by Automated count 2023-02-02 15:13:22 549.9 Cell/uL F 0.0-700.0 Lymphocytes [#/volume] in Blood by Automated count 2023-02-02 15:13:22 2098.08 Cell/uL F 1100.0-4800. 0 Neutrophils [#/volume] in Blood by Automated count 2023-02-02 15:13:22 5372.1 Cell/uL F 2000.0-8800. 0 Leukocytes [#/volume] in Blood by Automated count 2023-02-02 15:13:22 8.5 x 10^3 cells/uL F 4.5-11.0 Monocytes/100 leukocytes in Blood by Automated count 2023-01-05 22:38:22 5.8 % F Basophils/100 leukocytes in Blood by Automated count 2023-01-05 22:38:22 0.5 % F Neutrophils/100 leukocytes in Blood by Automated count 2023-01-05 22:38:22 65.3 % F Eosinophils/100 leukocytes in Blood by Automated count 2023-01-05 22:38:22 5.9 % F Lymphocytes/100 leukocytes in Blood by Automated count 2023-01-05 22:38:22 22.6 % F Monocytes [#/volume] in Blood by Automated count 2023-01-05 22:38:22 576.52 Cell/uL F 0.0-1100.0 Basophils [#/volume] in Blood by Automated count 2023-01-05 22:38:22 49.7 Cell/uL F 0.0-400.0 Eosinophils [#/volume] in Blood by Automated count 2023-01-05 22:38:22 586.46 Cell/uL F 0.0-700.0 Lymphocytes [#/volume] in Blood by Automated count 2023-01-05 22:38:22 2246.44 Cell/uL F 1100.0-4800. 0 Neutrophils [#/volume] in Blood by Automated count 2023-01-05 22:38:22 6490.82 Cell/uL F 2000.0-8800. 0 Leukocytes [#/volume] in Blood by Automated count 2023-01-05 22:38:22 9.9 x 10^3 cells/uL F 4.5-11.0 Neutrophils/100 leukocytes in Blood by Automated count 2022-12-08 17:09:51 62.4 % F Lymphocytes/100 leukocytes in Blood by Automated count 2022-12-08 17:09:51 26.8 % F Eosinophils/100 leukocytes in Blood by Automated count 2022-12-08 17:09:51 5.6 % F Monocytes/100 leukocytes in Blood by Automated count 2022-12-08 17:09:51 4.8 % F Basophils/100 leukocytes in Blood by Automated count 2022-12-08 17:09:51 0.4 % F Monocytes [#/volume] in Blood by Automated count 2022-12-08 17:09:51 405.12 Cell/uL F 0.0-1100.0 Basophils [#/volume] in Blood by Automated count 2022-12-08 17:09:51 33.76 Cell/uL F 0.0-400.0 Eosinophils [#/volume] in Blood by Automated count 2022-12-08 17:09:51 472.64 Cell/uL F 0.0-700.0 Lymphocytes [#/volume] in Blood by Automated count 2022-12-08 17:09:51 2261.92 Cell/uL F 1100.0-4800. 0 Neutrophils [#/volume] in Blood by Automated count 2022-12-08 17:09:51 5266.56 Cell/uL F 2000.0-8800. 0 Leukocytes [#/volume] in Blood by Automated count 2022-12-08 17:09:51 8.4 x 10^3 cells/uL F 4.5-11.0 Lymphocytes/100 leukocytes in Blood by Automated count 2022-11-03 18:54:50 25.6 % F Neutrophils/100 leukocytes in Blood by Automated count 2022-11-03 18:54:50 63 % F Monocytes/100 leukocytes in Blood by Automated count 2022-11-03 18:54:50 5.7 % F Basophils/100 leukocytes in Blood by Automated count 2022-11-03 18:54:50 0.5 % F Eosinophils/100 leukocytes in Blood by Automated count 2022-11-03 18:54:50 5.1 % F Monocytes [#/volume] in Blood by Automated count 2022-11-03 18:54:50 507.87 Cell/uL F 0.0-1100.0 Eosinophils [#/volume] in Blood by Automated count 2022-11-03 18:54:50 454.41 Cell/uL F 0.0-700.0 Basophils [#/volume] in Blood by Automated count 2022-11-03 18:54:50 44.55 Cell/uL F 0.0-400.0 Lymphocytes [#/volume] in Blood by Automated count 2022-11-03 18:54:50 2280.96 Cell/uL F 1100.0-4800. 0 Neutrophils [#/volume] in Blood by Automated count 2022-11-03 18:54:50 5613.3 Cell/uL F 2000.0-8800. 0 Leukocytes [#/volume] in Blood by Automated count 2022-11-03 18:54:50 8.9 x 10^3 cells/uL F 4.5-11.0 Basophils/100 leukocytes in Blood by Automated count 2022-10-06 21:36:47 0.5 % F Monocytes/100 leukocytes in Blood by Automated count 2022-10-06 21:36:47 5.6 % F Eosinophils/100 leukocytes in Blood by Automated count 2022-10-06 21:36:47 5 % F Neutrophils/100 leukocytes in Blood by Automated count 2022-10-06 21:36:47 65.9 % F Lymphocytes/100 leukocytes in Blood by Automated count 2022-10-06 21:36:47 23 % F Monocytes [#/volume] in Blood by Automated count 2022-10-06 21:36:47 507.92 Cell/uL F 0.0-1100.0 Basophils [#/volume] in Blood by Automated count 2022-10-06 21:36:47 45.35 Cell/uL F 0.0-400.0 Eosinophils [#/volume] in Blood by Automated count 2022-10-06 21:36:47 453.5 Cell/uL F 0.0-700.0 Lymphocytes [#/volume] in Blood by Automated count 2022-10-06 21:36:47 2086.1 Cell/uL F 1100.0-4800. 0 Neutrophils [#/volume] in Blood by Automated count 2022-10-06 21:36:47 5977.13 Cell/uL F 2000.0-8800. 0 Leukocytes [#/volume] in Blood by Automated count 2022-10-06 21:36:47 9.1 x 10^3 cells/uL F 4.5-11.0 Medication Description Draw Date Result/Unit Status Ref Range Result Comments INTNL NORMALIZED RATIO 2025-01-02 01:42:09 F Recollect - Solo tity not sufficient MineralBone Disorder Description Draw Date Result/Unit Status Ref Range Result Comments CA CORRECTED 2025-07-17 05:54:49 9.6 mg/dL F Calcium [Mass/volume] in Serum or Plasma 2025-07-17 05:49:40 9.6 mg/dL F 8.7-10.4 Alkaline phosphatase [Enzymatic activity/volume] in Serum or Plasma 2025-07-16 14:39:22 141 U/L F 46.0-116.0 CA CORRECTED 2025-07-04 07:28:49 10.5 mg/dL F CA CORRECTED 2025-07-04 07:28:49 10.5 mg/dL F CA/PHOS PRODUCT 2025-07-04 07:26:19 68.3 Calc F 21.0-53.0 CA*PO4 CORRCTD 2025-07-04 07:26:19 68.3 Calc F 21.0-53.0 CA/PHOS PRODUCT 2025-07-04 07:26:19 68.3 Calc F 21.0-53.0 CA*PO4 CORRCTD 2025-07-04 07:26:19 68.3 Calc F 21.0-53.0 Calcium [Mass/volume] in Serum or Plasma 2025-07-04 07:05:32 10.5 mg/dL F 8.7-10.4 Calcium [Mass/volume] in Serum or Plasma 2025-07-04 07:05:32 10.5 mg/dL F 8.7-10.4 Parathyrin.intact [Mass/volume] in Serum or Plasma 2025-07-03 15:24:24 559 pg/mL F 18.0-80.0 Parathyrin.intact [Mass/volume] in Serum or Plasma 2025-07-03 15:24:24 559 pg/mL F 18.0-80.0 Phosphate [Mass/volume] in Serum or Plasma 2025-07-03 13:35:21 6.5 mg/dL F 2.4-5.1 Phosphate [Mass/volume] in Serum or Plasma 2025-07-03 13:35:21 6.5 mg/dL F 2.4-5.1 Alkaline phosphatase [Enzymatic activity/volume] in Serum or Plasma 2025-06-18 16:13:20 160 U/L F 46.0-116.0 CA CORRECTED 2025-06-05 07:46:35 9.9 mg/dL F CA/PHOS PRODUCT 2025-06-05 07:44:23 50.5 Calc F 21.0-53.0 CA*PO4 CORRCTD 2025-06-05 07:44:23 50.5 Calc F 21.0-53.0 Calcium [Mass/volume] in Serum or Plasma 2025-06-05 07:08:02 9.9 mg/dL F 8.7-10.4 Parathyrin.intact [Mass/volume] in Serum or Plasma 2025-06-04 21:16:20 567 pg/mL F 18.0-80.0 Phosphate [Mass/volume] in Serum or Plasma 2025-06-04 20:59:15 5.1 mg/dL F 2.4-5.1 Alkaline phosphatase [Enzymatic activity/volume] in Serum or Plasma 2025-05-21 17:02:15 202 U/L F 46.0-116.0 Alkaline phosphatase [Enzymatic activity/volume] in Serum or Plasma 2025-05-21 17:02:15 202 U/L F 46.0-116.0 Alkaline phosphatase [Enzymatic activity/volume] in Serum or Plasma 2025-05-21 17:02:15 202 U/L F 46.0-116.0 CA CORRECTED 2025-05-14 23:01:19 9.5 mg/dL F CA CORRECTED 2025-05-14 23:01:19 9.5 mg/dL F CA CORRECTED 2025-05-14 23:01:19 9.5 mg/dL F CA*PO4 CORRCTD 2025-05-14 22:59:37 43.7 Calc F 21.0-53.0 CA/PHOS PRODUCT 2025-05-14 22:59:37 43.7 Calc F 21.0-53.0 CA*PO4 CORRCTD 2025-05-14 22:59:37 43.7 Calc F 21.0-53.0 CA/PHOS PRODUCT 2025-05-14 22:59:37 43.7 Calc F 21.0-53.0 CA/PHOS PRODUCT 2025-05-14 22:59:37 43.7 Calc F 21.0-53.0 CA*PO4 CORRCTD 2025-05-14 22:59:37 43.7 Calc F 21.0-53.0 Calcium [Mass/volume] in Serum or Plasma 2025-05-14 22:55:47 9.5 mg/dL F 8.7-10.4 Calcium [Mass/volume] in Serum or Plasma 2025-05-14 22:55:47 9.5 mg/dL F 8.7-10.4 Calcium [Mass/volume] in Serum or Plasma 2025-05-14 22:55:47 9.5 mg/dL F 8.7-10.4 Parathyrin.intact [Mass/volume] in Serum or Plasma 2025-05-14 21:05:13 269 pg/mL F 18.0-80.0 Parathyrin.intact [Mass/volume] in Serum or Plasma 2025-05-14 21:05:13 269 pg/mL F 18.0-80.0 Parathyrin.intact [Mass/volume] in Serum or Plasma 2025-05-14 21:05:13 269 pg/mL F 18.0-80.0 Phosphate [Mass/volume] in Serum or Plasma 2025-05-14 20:30:16 4.6 mg/dL F 2.4-5.1 Phosphate [Mass/volume] in Serum or Plasma 2025-05-14 20:30:16 4.6 mg/dL F 2.4-5.1 Phosphate [Mass/volume] in Serum or Plasma 2025-05-14 20:30:16 4.6 mg/dL F 2.4-5.1 Parathyrin.intact [Mass/volume] in Serum or Plasma 2025-05-08 13:01:30 F Recollect - Shipping temp out of range CA/PHOS PRODUCT 2025-05-08 12:55:51 F Recollect - Shipping temp out of range,Unable to Calculate. CA*PO4 CORRCTD 2025-05-08 12:55:51 F Unable to Calculate.,Recollec t - Shipping temp out of range Calcium [Mass/volume] in Serum or Plasma 2025-05-08 12:55:00 F Recollect - Shipping temp out of range Phosphate [Mass/volume] in Serum or Plasma 2025-05-08 12:55:00 F Recollect - Shipping temp out of range CA CORRECTED 2025-04-17 02:44:07 9.4 mg/dL F CA CORRECTED 2025-04-17 02:44:07 9.4 mg/dL F Calcium [Mass/volume] in Serum or Plasma 2025-04-17 02:41:30 9.4 mg/dL F 8.7-10.4 Calcium [Mass/volume] in Serum or Plasma 2025-04-17 02:41:30 9.4 mg/dL F 8.7-10.4 CA CORRECTED 2025-04-03 07:53:54 10.1 mg/dL F CA/PHOS PRODUCT 2025-04-03 07:52:31 47.5 Calc F 21.0-53.0 CA*PO4 CORRCTD 2025-04-03 07:52:31 47.5 Calc F 21.0-53.0 Calcium [Mass/volume] in Serum or Plasma 2025-04-03 07:27:44 10.1 mg/dL F 8.7-10.4 25-Hydroxyvitamin D3+25-Hydroxyvitamin D2 [Mass/volume] in Serum or Plasma 2025-04-03 04:57:45 17 ng/mL F Parathyrin.intact [Mass/volume] in Serum or Plasma 2025-04-02 22:51:22 118 pg/mL F 18.0-80.0 Alkaline phosphatase [Enzymatic activity/volume] in Serum or Plasma 2025-04-02 19:04:15 241 U/L F 46.0-116.0 Phosphate [Mass/volume] in Serum or Plasma 2025-04-02 19:04:15 4.7 mg/dL F 2.4-5.1 CA CORRECTED 2025-02-21 18:14:08 9.1 mg/dL F CA CORRECTED 2025-02-21 18:14:08 9.1 mg/dL F CA*PO4 CORRCTD 2025-02-21 18:11:16 51 Calc F 21.0-53.0 CA/PHOS PRODUCT 2025-02-21 18:11:16 51 Calc F 21.0-53.0 CA*PO4 CORRCTD 2025-02-21 18:11:16 51 Calc F 21.0-53.0 CA/PHOS PRODUCT 2025-02-21 18:11:16 51 Calc F 21.0-53.0 Phosphate [Mass/volume] in Serum or Plasma 2025-02-21 18:00:04 5.6 mg/dL F 2.4-5.1 Calcium [Mass/volume] in Serum or Plasma 2025-02-21 18:00:04 9.1 mg/dL F 8.7-10.4 Phosphate [Mass/volume] in Serum or Plasma 2025-02-21 18:00:04 5.6 mg/dL F 2.4-5.1 Calcium [Mass/volume] in Serum or Plasma 2025-02-21 18:00:04 9.1 mg/dL F 8.7-10.4 Alkaline phosphatase [Enzymatic activity/volume] in Serum or Plasma 2025-02-21 14:35:22 200 U/L F 46.0-116.0 Alkaline phosphatase [Enzymatic activity/volume] in Serum or Plasma 2025-02-21 14:35:22 200 U/L F 46.0-116.0 Parathyrin.intact [Mass/volume] in Serum or Plasma 2025-02-21 13:14:20 F CANCELED - TEST CANCELED Parathyrin.intact [Mass/volume] in Serum or Plasma 2025-02-21 13:14:20 F CANCELED - TEST CANCELED CA CORRECTED 2025-01-02 07:54:56 8.8 mg/dL F CA/PHOS PRODUCT 2025-01-02 07:52:03 46.6 Calc F 21.0-53.0 CA*PO4 CORRCTD 2025-01-02 07:52:03 46.6 Calc F 21.0-53.0 Phosphate [Mass/volume] in Serum or Plasma 2025-01-02 07:06:00 5.3 mg/dL F 2.4-5.1 Calcium [Mass/volume] in Serum or Plasma 2025-01-02 07:06:00 8.8 mg/dL F 8.7-10.4 Parathyrin.intact [Mass/volume] in Serum or Plasma 2025-01-01 20:05:16 564 pg/mL F 18.0-80.0 Alkaline phosphatase [Enzymatic activity/volume] in Serum or Plasma 2025-01-01 17:46:26 201 U/L F 46.0-116.0 CA CORRECTED 2024-12-05 09:38:46 9.7 mg/dL F CA/PHOS PRODUCT 2024-12-05 09:36:56 42.7 Calc F 21.0-53.0 CA*PO4 CORRCTD 2024-12-05 09:36:56 42.7 Calc F 21.0-53.0 Phosphate [Mass/volume] in Serum or Plasma 2024-12-05 07:02:57 4.4 mg/dL F 2.4-5.1 Calcium [Mass/volume] in Serum or Plasma 2024-12-05 07:02:57 9.7 mg/dL F 8.7-10.4 Parathyrin.intact [Mass/volume] in Serum or Plasma 2024-12-04 17:19:25 566 pg/mL F 18.0-80.0 Alkaline phosphatase [Enzymatic activity/volume] in Serum or Plasma 2024-12-04 16:08:25 303 U/L F 46.0-116.0 Alkaline phosphatase [Enzymatic activity/volume] in Serum or Plasma 2024-11-09 08:34:23 263 U/L F 46.0-116.0 CA CORRECTED 2024-10-04 21:16:38 10 mg/dL F CA*PO4 CORRCTD 2024-10-04 21:15:13 53 Calc F 21.0-53.0 CA/PHOS PRODUCT 2024-10-04 21:15:13 53 Calc F 21.0-53.0 Phosphate [Mass/volume] in Serum or Plasma 2024-10-04 21:07:30 5.3 mg/dL F 2.4-5.1 Calcium [Mass/volume] in Serum or Plasma 2024-10-04 21:07:10 10 mg/dL F 8.7-10.4 Parathyrin.intact [Mass/volume] in Serum or Plasma 2024-10-04 17:22:21 739 pg/mL F 18.0-80.0 Alkaline phosphatase [Enzymatic activity/volume] in Serum or Plasma 2024-10-04 14:27:22 225 U/L F 46.0-116.0 CA CORRECTED 2024-09-07 04:03:48 10.2 mg/dL F CA/PHOS PRODUCT 2024-09-07 04:02:52 47.9 Calc F 21.0-53.0 CA*PO4 CORRCTD 2024-09-07 04:02:52 47.9 Calc F 21.0-53.0 Calcium [Mass/volume] in Serum or Plasma 2024-09-07 03:59:39 10.2 mg/dL F 8.7-10.4 Parathyrin.intact [Mass/volume] in Serum or Plasma 2024-09-06 15:55:21 383 pg/mL F 18.0-80.0 Phosphate [Mass/volume] in Serum or Plasma 2024-09-06 14:15:23 4.7 mg/dL F 2.4-5.1 Alkaline phosphatase [Enzymatic activity/volume] in Serum or Plasma 2024-09-06 14:15:23 282 U/L F 46.0-116.0 CA CORRECTED 2024-08-10 09:23:35 9.6 mg/dL F CA/PHOS PRODUCT 2024-08-10 07:45:59 36.5 Calc F 21.0-53.0 CA*PO4 CORRCTD 2024-08-10 07:45:59 36.5 Calc F 21.0-53.0 Calcium [Mass/volume] in Serum or Plasma 2024-08-10 07:26:43 9.6 mg/dL F 8.7-10.4 Parathyrin.intact [Mass/volume] in Serum or Plasma 2024-08-10 05:29:25 132 pg/mL F 18.0-80.0 Phosphate [Mass/volume] in Serum or Plasma 2024-08-10 00:43:24 3.8 mg/dL F 2.4-5.1 Alkaline phosphatase [Enzymatic activity/volume] in Serum or Plasma 2024-08-10 00:43:24 221 U/L F 46.0-116.0 CA CORRECTED 2024-07-04 16:19:07 9.5 mg/dL F CA*PO4 CORRCTD 2024-07-04 16:18:49 39 Calc F 21.0-53.0 CA/PHOS PRODUCT 2024-07-04 16:18:49 39 Calc F 21.0-53.0 Calcium [Mass/volume] in Serum or Plasma 2024-07-04 16:17:52 9.5 mg/dL F 8.7-10.4 Parathyrin.intact [Mass/volume] in Serum or Plasma 2024-07-04 16:10:22 312 pg/mL F 18.0-80.0 Phosphate [Mass/volume] in Serum or Plasma 2024-07-04 13:52:18 4.1 mg/dL F 2.4-5.1 Alkaline phosphatase [Enzymatic activity/volume] in Serum or Plasma 2024-07-04 13:52:18 219 U/L F 46.0-116.0 Parathyrin.intact [Mass/volume] in Serum or Plasma 2024-06-13 20:55:43 317 pg/mL F 18.0-80.0 CA CORRECTED 2024-06-13 16:20:40 9.5 mg/dL F CA/PHOS PRODUCT 2024-06-13 16:18:01 35.2 Calc F 21.0-53.0 CA*PO4 CORRCTD 2024-06-13 16:18:01 35.2 Calc F 21.0-53.0 Calcium [Mass/volume] in Serum or Plasma 2024-06-13 16:16:50 9.5 mg/dL F 8.7-10.4 Phosphate [Mass/volume] in Serum or Plasma 2024-06-13 13:43:36 3.7 mg/dL F 2.4-5.1 Alkaline phosphatase [Enzymatic activity/volume] in Serum or Plasma 2024-06-13 13:43:36 179 U/L F 46.0-116.0 CA*PO4 CORRCTD 2024-06-06 19:58:40 F Recollect - Shipping temp out of range CA/PHOS PRODUCT 2024-06-06 19:58:40 F Recollect - Shipping temp out of range Parathyrin.intact [Mass/volume] in Serum or Plasma 2024-06-06 13:39:45 F Recollect - Shipping temp out of range Alkaline phosphatase [Enzymatic activity/volume] in Serum or Plasma 2024-06-06 13:37:10 F Recollect - Shipping temp out of range Calcium [Mass/volume] in Serum or Plasma 2024-06-06 13:37:10 F Recollect - Shipping temp out of range Phosphate [Mass/volume] in Serum or Plasma 2024-06-06 13:37:10 F Recollect - Shipping temp out of range Parathyrin.intact [Mass/volume] in Serum or Plasma 2024-05-03 03:58:16 435 pg/mL F 18.0-80.0 CA CORRECTED 2024-05-03 02:55:44 9.3 mg/dL F CA/PHOS PRODUCT 2024-05-03 02:44:58 51.9 Calc F 21.0-53.0 CA*PO4 CORRCTD 2024-05-03 02:44:58 53 Calc F 21.0-53.0 Calcium [Mass/volume] in Serum or Plasma 2024-05-03 02:33:15 9.1 mg/dL F 8.7-10.4 Phosphate [Mass/volume] in Serum or Plasma 2024-05-02 19:24:31 5.7 mg/dL F 2.4-5.1 Alkaline phosphatase [Enzymatic activity/volume] in Serum or Plasma 2024-05-02 19:24:31 168 U/L F 46.0-116.0 Parathyrin.intact [Mass/volume] in Serum or Plasma 2024-04-12 06:46:51 455 pg/mL F 18.0-80.0 CA CORRECTED 2024-04-12 05:16:37 9 mg/dL F CA*PO4 CORRCTD 2024-04-12 05:11:41 47.7 Calc F 21.0-53.0 CA/PHOS PRODUCT 2024-04-12 05:11:41 47.7 Calc F 21.0-53.0 Calcium [Mass/volume] in Serum or Plasma 2024-04-12 05:00:54 9 mg/dL F 8.7-10.4 Phosphate [Mass/volume] in Serum or Plasma 2024-04-11 20:38:33 5.3 mg/dL F 2.4-5.1 Alkaline phosphatase [Enzymatic activity/volume] in Serum or Plasma 2024-04-11 20:38:33 180 U/L F 46.0-116.0 CA*PO4 CORRCTD 2024-04-09 07:35:01 F Canceled - Speci men not received 5 days past draw date CA/PHOS PRODUCT 2024-04-09 07:35:01 F Canceled - Speci men not received 5 days past draw date Alkaline phosphatase [Enzymatic activity/volume] in Serum or Plasma 2024-04-09 07:23:30 F Canceled - Speci men not received 5 days past draw date Calcium [Mass/volume] in Serum or Plasma 2024-04-09 07:23:30 F Canceled - Speci men not received 5 days past draw date Phosphate [Mass/volume] in Serum or Plasma 2024-04-09 07:23:30 F Canceled - Speci men not received 5 days past draw date Parathyrin.intact [Mass/volume] in Serum or Plasma 2024-04-09 07:23:30 F Canceled - Speci men not received 5 days past draw date CA CORRECTED 2024-03-08 05:29:02 9.8 mg/dL F CA/PHOS PRODUCT 2024-03-08 05:22:28 51.9 Calc F 21.0-53.0 CA*PO4 CORRCTD 2024-03-08 05:22:28 51.9 Calc F 21.0-53.0 Calcium [Mass/volume] in Serum or Plasma 2024-03-08 05:09:40 9.8 mg/dL F 8.7-10.4 25-Hydroxyvitamin D3+25-Hydroxyvitamin D2 [Mass/volume] in Serum or Plasma 2024-03-08 00:22:17 16 ng/mL F Parathyrin.intact [Mass/volume] in Serum or Plasma 2024-03-08 00:22:07 590 pg/mL F 18.0-80.0 Phosphate [Mass/volume] in Serum or Plasma 2024-03-07 20:27:38 5.3 mg/dL F 2.4-5.1 Alkaline phosphatase [Enzymatic activity/volume] in Serum or Plasma 2024-03-07 20:27:38 232 U/L F 46.0-116.0 CA CORRECTED 2024-02-01 18:38:38 9.9 mg/dL F CA*PO4 CORRCTD 2024-02-01 18:35:56 45.5 Calc F 21.0-53.0 CA/PHOS PRODUCT 2024-02-01 18:35:56 45.5 Calc F 21.0-53.0 Calcium [Mass/volume] in Serum or Plasma 2024-02-01 18:35:11 9.9 mg/dL F 8.7-10.4 Parathyrin.intact [Mass/volume] in Serum or Plasma 2024-02-01 17:38:33 451 pg/mL F 18.0-80.0 Phosphate [Mass/volume] in Serum or Plasma 2024-02-01 14:47:33 4.6 mg/dL F 2.4-5.1 Alkaline phosphatase [Enzymatic activity/volume] in Serum or Plasma 2024-02-01 14:47:33 189 U/L F 46.0-116.0 CA CORRECTED 2024-01-05 07:15:03 9.2 mg/dL F CA/PHOS PRODUCT 2024-01-05 06:57:57 26.4 Calc F 21.0-53.0 CA*PO4 CORRCTD 2024-01-05 06:57:57 26.7 Calc F 21.0-53.0 Parathyrin.intact [Mass/volume] in Serum or Plasma 2024-01-05 06:49:02 142 pg/mL F 18.0-80.0 Calcium [Mass/volume] in Serum or Plasma 2024-01-05 06:39:54 9.1 mg/dL F 8.7-10.4 Phosphate [Mass/volume] in Serum or Plasma 2024-01-05 03:21:34 2.9 mg/dL F 2.4-5.1 Alkaline phosphatase [Enzymatic activity/volume] in Serum or Plasma 2024-01-05 03:21:34 227 U/L F 46.0-116.0 CA CORRECTED 2023-12-08 06:59:28 9.1 mg/dL F CA*PO4 CORRCTD 2023-12-08 06:56:39 38.2 Calc F 21.0-53.0 CA/PHOS PRODUCT 2023-12-08 06:56:39 38.2 Calc F 21.0-53.0 Calcium [Mass/volume] in Serum or Plasma 2023-12-08 06:52:52 9.1 mg/dL F 8.7-10.4 Parathyrin.intact [Mass/volume] in Serum or Plasma 2023-12-08 05:06:44 368 pg/mL F 18.0-80.0 Phosphate [Mass/volume] in Serum or Plasma 2023-12-07 22:01:38 4.2 mg/dL F 2.4-5.1 Alkaline phosphatase [Enzymatic activity/volume] in Serum or Plasma 2023-12-07 22:01:38 185 U/L F 46.0-116.0 CA CORRECTED 2023-11-04 08:49:42 9.4 mg/dL F CA*PO4 CORRCTD 2023-11-04 08:17:50 38.5 Calc F 21.0-53.0 CA/PHOS PRODUCT 2023-11-04 08:17:50 38.5 Calc F 21.0-53.0 Calcium [Mass/volume] in Serum or Plasma 2023-11-04 08:11:15 9.4 mg/dL F 8.7-10.4 Parathyrin.intact [Mass/volume] in Serum or Plasma 2023-11-04 05:31:28 477 pg/mL F 18.0-80.0 Phosphate [Mass/volume] in Serum or Plasma 2023-11-04 04:43:03 4.1 mg/dL F 2.4-5.1 Alkaline phosphatase [Enzymatic activity/volume] in Serum or Plasma 2023-11-04 04:43:03 257 U/L F 46.0-116.0 CA CORRECTED 2023-10-05 23:31:07 9.2 mg/dL F CA*PO4 CORRCTD 2023-10-05 23:28:21 47.8 Calc F 21.0-53.0 CA/PHOS PRODUCT 2023-10-05 23:28:21 47.8 Calc F 21.0-53.0 Calcium [Mass/volume] in Serum or Plasma 2023-10-05 23:25:31 9.2 mg/dL F 8.7-10.4 Parathyrin.intact [Mass/volume] in Serum or Plasma 2023-10-05 18:44:33 184 pg/mL F 18.0-80.0 Phosphate [Mass/volume] in Serum or Plasma 2023-10-05 15:31:32 5.2 mg/dL F 2.4-5.1 Alkaline phosphatase [Enzymatic activity/volume] in Serum or Plasma 2023-10-05 15:31:32 208 U/L F 46.0-116.0 CA CORRECTED 2023-09-01 06:18:42 9.4 mg/dL F CA*PO4 CORRCTD 2023-09-01 06:13:53 53.6 Calc F 21.0-53.0 CA/PHOS PRODUCT 2023-09-01 06:13:53 53.6 Calc F 21.0-53.0 Calcium [Mass/volume] in Serum or Plasma 2023-09-01 06:07:13 9.4 mg/dL F 8.7-10.4 Parathyrin.intact [Mass/volume] in Serum or Plasma 2023-09-01 03:10:52 332 pg/mL F 18.0-80.0 Phosphate [Mass/volume] in Serum or Plasma 2023-08-31 18:15:36 5.7 mg/dL F 2.4-5.1 Alkaline phosphatase [Enzymatic activity/volume] in Serum or Plasma 2023-08-31 18:15:36 190 U/L F 46.0-116.0 CA CORRECTED 2023-08-04 06:49:42 9.5 mg/dL F CA/PHOS PRODUCT 2023-08-04 06:43:57 40.9 Calc F 21.0-53.0 CA*PO4 CORRCTD 2023-08-04 06:43:57 40.9 Calc F 21.0-53.0 Calcium [Mass/volume] in Serum or Plasma 2023-08-04 06:38:52 9.5 mg/dL F 8.7-10.4 Parathyrin.intact [Mass/volume] in Serum or Plasma 2023-08-03 18:38:40 410 pg/mL F 18.0-80.0 Phosphate [Mass/volume] in Serum or Plasma 2023-08-03 16:42:39 4.3 mg/dL F 2.4-5.1 Alkaline phosphatase [Enzymatic activity/volume] in Serum or Plasma 2023-08-03 16:42:39 227 U/L F 46.0-116.0 CA CORRECTED 2023-07-07 07:03:31 9.7 mg/dL F CA*PO4 CORRCTD 2023-07-07 07:00:27 49.5 Calc F 21.0-53.0 CA/PHOS PRODUCT 2023-07-07 07:00:27 49.5 Calc F 21.0-53.0 Calcium [Mass/volume] in Serum or Plasma 2023-07-07 06:53:08 9.7 mg/dL F 8.7-10.4 Parathyrin.intact [Mass/volume] in Serum or Plasma 2023-07-06 18:22:44 333 pg/mL F 18.0-80.0 Phosphate [Mass/volume] in Serum or Plasma 2023-07-06 17:14:36 5.1 mg/dL F 2.4-5.1 Alkaline phosphatase [Enzymatic activity/volume] in Serum or Plasma 2023-07-06 17:14:36 228 U/L F 46.0-116.0 CA CORRECTED 2023-06-08 18:15:37 9.1 mg/dL F CA/PHOS PRODUCT 2023-06-08 18:13:11 33.7 Calc F 21.0-53.0 CA*PO4 CORRCTD 2023-06-08 18:13:11 33.7 Calc F 21.0-53.0 Calcium [Mass/volume] in Serum or Plasma 2023-06-08 18:10:24 9.1 mg/dL F 8.7-10.4 Parathyrin.intact [Mass/volume] in Serum or Plasma 2023-06-08 17:05:37 477 pg/mL F 18.0-80.0 Phosphate [Mass/volume] in Serum or Plasma 2023-06-08 15:33:41 3.7 mg/dL F 2.4-5.1 Alkaline phosphatase [Enzymatic activity/volume] in Serum or Plasma 2023-06-08 15:33:41 288 U/L F 46.0-116.0 CA CORRECTED 2023-05-04 18:53:52 8.9 mg/dL F CA/PHOS PRODUCT 2023-05-04 18:51:08 47.2 Calc F 21.0-53.0 CA*PO4 CORRCTD 2023-05-04 18:51:08 47.2 Calc F 21.0-53.0 Calcium [Mass/volume] in Serum or Plasma 2023-05-04 18:49:17 8.9 mg/dL F 8.7-10.4 Parathyrin.intact [Mass/volume] in Serum or Plasma 2023-05-04 18:15:58 588 pg/mL F 18.0-80.0 Phosphate [Mass/volume] in Serum or Plasma 2023-05-04 15:05:46 5.3 mg/dL F 2.4-5.1 Alkaline phosphatase [Enzymatic activity/volume] in Serum or Plasma 2023-05-04 15:05:46 236 U/L F 46.0-116.0 CA CORRECTED 2023-04-07 04:41:21 9 mg/dL F CA*PO4 CORRCTD 2023-04-07 03:53:59 40.5 Calc F 21.0-53.0 CA/PHOS PRODUCT 2023-04-07 03:53:59 40.5 Calc F 21.0-53.0 Calcium [Mass/volume] in Serum or Plasma 2023-04-07 03:32:10 9 mg/dL F 8.7-10.4 Phosphate [Mass/volume] in Serum or Plasma 2023-04-06 21:13:25 4.5 mg/dL F 2.4-5.1 Alkaline phosphatase [Enzymatic activity/volume] in Serum or Plasma 2023-04-06 21:13:25 232 U/L F 46.0-116.0 Parathyrin.intact [Mass/volume] in Serum or Plasma 2023-04-06 21:04:29 328 pg/mL F 18.0-80.0 CA CORRECTED 2023-03-03 11:47:34 9.2 mg/dL F CA*PO4 CORRCTD 2023-03-03 06:36:24 35.9 Calc F 21.0-53.0 CA/PHOS PRODUCT 2023-03-03 06:36:24 35.9 Calc F 21.0-53.0 Calcium [Mass/volume] in Serum or Plasma 2023-03-03 06:28:39 9.2 mg/dL F 8.7-10.4 Parathyrin.intact [Mass/volume] in Serum or Plasma 2023-03-02 17:04:21 498 pg/mL F 18.0-80.0 Phosphate [Mass/volume] in Serum or Plasma 2023-03-02 16:12:19 3.9 mg/dL F 2.4-5.1 Alkaline phosphatase [Enzymatic activity/volume] in Serum or Plasma 2023-03-02 16:12:19 181 U/L F 46.0-116.0 25-Hydroxyvitamin D3+25-Hydroxyvitamin D2 [Mass/volume] in Serum or Plasma 2023-03-02 16:06:10 24.4 ng/mL F CA CORRECTED 2023-02-03 04:38:54 8.9 mg/dL F CA/PHOS PRODUCT 2023-02-03 04:30:12 35.6 Calc F 21.0-53.0 CA*PO4 CORRCTD 2023-02-03 04:30:12 35.6 Calc F 21.0-53.0 Calcium [Mass/volume] in Serum or Plasma 2023-02-03 04:21:20 8.9 mg/dL F 8.7-10.4 Phosphate [Mass/volume] in Serum or Plasma 2023-02-02 18:36:19 4 mg/dL F 2.4-5.1 Alkaline phosphatase [Enzymatic activity/volume] in Serum or Plasma 2023-02-02 18:36:19 179 U/L F 46.0-116.0 Parathyrin.intact [Mass/volume] in Serum or Plasma 2023-02-02 16:05:21 314 pg/mL F 18.0-80.0 CA CORRECTED 2023-01-06 05:08:11 9.8 mg/dL F CA*PO4 CORRCTD 2023-01-06 04:05:22 41.2 Calc F 21.0-53.0 CA/PHOS PRODUCT 2023-01-06 04:05:22 41.2 Calc F 21.0-53.0 Calcium [Mass/volume] in Serum or Plasma 2023-01-06 03:31:56 9.8 mg/dL F 8.7-10.4 Parathyrin.intact [Mass/volume] in Serum or Plasma 2023-01-06 03:17:16 513 pg/mL F 18.0-80.0 Phosphate [Mass/volume] in Serum or Plasma 2023-01-05 20:20:20 4.2 mg/dL F 2.4-5.1 Alkaline phosphatase [Enzymatic activity/volume] in Serum or Plasma 2023-01-05 20:20:20 179 U/L F 46.0-116.0 CA CORRECTED 2022-12-09 09:15:49 9.7 mg/dL F CA*PO4 CORRCTD 2022-12-09 07:24:34 49.5 Calc F 21.0-53.0 CA/PHOS PRODUCT 2022-12-09 07:24:34 49.5 Calc F 21.0-53.0 Calcium [Mass/volume] in Serum or Plasma 2022-12-09 07:21:36 9.7 mg/dL F 8.7-10.4 Parathyrin.intact [Mass/volume] in Serum or Plasma 2022-12-08 18:13:04 731 pg/mL F 18.0-80.0 Phosphate [Mass/volume] in Serum or Plasma 2022-12-08 17:28:52 5.1 mg/dL F 2.4-5.1 Alkaline phosphatase [Enzymatic activity/volume] in Serum or Plasma 2022-12-08 17:28:52 155 U/L F 46.0-116.0 CA CORRECTED 2022-11-04 17:33:14 10.5 mg/dL F CA*PO4 CORRCTD 2022-11-04 07:37:43 51.5 Calc F 21.0-53.0 CA/PHOS PRODUCT 2022-11-04 07:37:43 51.5 Calc F 21.0-53.0 Calcium [Mass/volume] in Serum or Plasma 2022-11-04 07:34:09 10.5 mg/dL F 8.7-10.4 Parathyrin.intact [Mass/volume] in Serum or Plasma 2022-11-03 17:12:53 496 pg/mL F 18.0-80.0 Phosphate [Mass/volume] in Serum or Plasma 2022-11-03 15:53:55 4.9 mg/dL F 2.4-5.1 Alkaline phosphatase [Enzymatic activity/volume] in Serum or Plasma 2022-11-03 15:53:55 140 U/L F 46.0-116.0 CA CORRECTED 2022-10-07 08:15:51 9.5 mg/dL F CA*PO4 CORRCTD 2022-10-07 04:50:35 39 Calc F 21.0-53.0 CA/PHOS PRODUCT 2022-10-07 04:50:35 39 Calc F 21.0-53.0 Calcium [Mass/volume] in Serum or Plasma 2022-10-07 04:38:39 9.5 mg/dL F 8.7-10.4 Parathyrin.intact [Mass/volume] in Serum or Plasma 2022-10-06 22:36:51 344 pg/mL F 18.0-80.0 Phosphate [Mass/volume] in Serum or Plasma 2022-10-06 19:56:44 4.1 mg/dL F 2.4-5.1 Alkaline phosphatase [Enzymatic activity/volume] in Serum or Plasma 2022-10-06 19:56:44 151 U/L F 46.0-116.0 CA CORRECTED CA*PO4 CORRCTD Phosphate [Mass/volume] in Serum or Plasma Calcium [Mass/volume] in Serum or Plasma CA/PHOS PRODUCT Parathyrin.intact [Mass/volume] in Serum or Plasma CA CORRECTED F Calcium [Mass/volume] in Serum or Plasma CA*PO4 CORRCTD Phosphate [Mass/volume] in Serum or Plasma CA CORRECTED CA/PHOS PRODUCT Parathyrin.intact [Mass/volume] in Serum or Plasma CA CORRECTED F CA CORRECTED F Nutrition Description Draw Date Result/Unit Status Ref Range Result Comments Potassium [Moles/volume] in Serum or Plasma 2025-07-17 05:49:40 3.9 mEq/L F 3.5-5.1 GLOBULIN 2025-07-16 14:40:08 3 g/dL F 0.9-5.0 A/G RATIO 2025-07-16 14:40:08 1.5 Calc F 1.0-2.5 Lactate dehydrogenase [Enzymatic activity/volume] in Serum or Plasma 2025-07-16 14:39:22 214 U/L F 120.0-246.0 Bicarbonate [Moles/volume] in Serum or Plasma 2025-07-16 14:39:22 25 mEq/L F 20.0-31.0 Albumin [Mass/volume] in Serum or Plasma by Bromocresol green (BCG) dye binding method 2025-07-16 14:39:22 4.4 g/dL F 3.2-4.8 Protein [Mass/volume] in Serum or Plasma 2025-07-16 14:39:22 7.4 g/dL F 5.7-8.2 Glucose [Mass/volume] in Serum or Plasma 2025-07-16 14:39:22 211 mg/dL F 74.0-106.0 Potassium [Moles/volume] in Serum or Plasma 2025-06-18 20:41:04 4.5 mEq/L F 3.5-5.1 A/G RATIO 2025-06-18 16:14:20 1.5 Calc F 1.0-2.5 GLOBULIN 2025-06-18 16:14:20 3.1 g/dL F 0.9-5.0 Albumin [Mass/volume] in Serum or Plasma by Bromocresol green (BCG) dye binding method 2025-06-18 16:13:20 4.5 g/dL F 3.2-4.8 Bicarbonate [Moles/volume] in Serum or Plasma 2025-06-18 16:13:20 25 mEq/L F 20.0-31.0 Glucose [Mass/volume] in Serum or Plasma 2025-06-18 16:13:20 172 mg/dL F 74.0-106.0 Lactate dehydrogenase [Enzymatic activity/volume] in Serum or Plasma 2025-06-18 16:13:20 244 U/L F 120.0-246.0 Protein [Mass/volume] in Serum or Plasma 2025-06-18 16:13:20 7.6 g/dL F 5.7-8.2 Potassium [Moles/volume] in Serum or Plasma 2025-05-22 01:59:09 4 mEq/L F 3.5-5.1 Potassium [Moles/volume] in Serum or Plasma 2025-05-22 01:59:09 4 mEq/L F 3.5-5.1 Potassium [Moles/volume] in Serum or Plasma 2025-05-22 01:59:09 4 mEq/L F 3.5-5.1 A/G RATIO 2025-05-21 17:03:15 1.2 Calc F 1.0-2.5 GLOBULIN 2025-05-21 17:03:15 3.4 g/dL F 0.9-5.0 A/G RATIO 2025-05-21 17:03:15 1.2 Calc F 1.0-2.5 GLOBULIN 2025-05-21 17:03:15 3.4 g/dL F 0.9-5.0 GLOBULIN 2025-05-21 17:03:15 3.4 g/dL F 0.9-5.0 A/G RATIO 2025-05-21 17:03:15 1.2 Calc F 1.0-2.5 Albumin [Mass/volume] in Serum or Plasma by Bromocresol green (BCG) dye binding method 2025-05-21 17:02:15 4.2 g/dL F 3.2-4.8 Bicarbonate [Moles/volume] in Serum or Plasma 2025-05-21 17:02:15 22 mEq/L F 20.0-31.0 Glucose [Mass/volume] in Serum or Plasma 2025-05-21 17:02:15 204 mg/dL F 74.0-106.0 Protein [Mass/volume] in Serum or Plasma 2025-05-21 17:02:15 7.6 g/dL F 5.7-8.2 Lactate dehydrogenase [Enzymatic activity/volume] in Serum or Plasma 2025-05-21 17:02:15 237 U/L F 120.0-246.0 Albumin [Mass/volume] in Serum or Plasma by Bromocresol green (BCG) dye binding method 2025-05-21 17:02:15 4.2 g/dL F 3.2-4.8 Bicarbonate [Moles/volume] in Serum or Plasma 2025-05-21 17:02:15 22 mEq/L F 20.0-31.0 Glucose [Mass/volume] in Serum or Plasma 2025-05-21 17:02:15 204 mg/dL F 74.0-106.0 Lactate dehydrogenase [Enzymatic activity/volume] in Serum or Plasma 2025-05-21 17:02:15 237 U/L F 120.0-246.0 Protein [Mass/volume] in Serum or Plasma 2025-05-21 17:02:15 7.6 g/dL F 5.7-8.2 Albumin [Mass/volume] in Serum or Plasma by Bromocresol green (BCG) dye binding method 2025-05-21 17:02:15 4.2 g/dL F 3.2-4.8 Glucose [Mass/volume] in Serum or Plasma 2025-05-21 17:02:15 204 mg/dL F 74.0-106.0 Bicarbonate [Moles/volume] in Serum or Plasma 2025-05-21 17:02:15 22 mEq/L F 20.0-31.0 Lactate dehydrogenase [Enzymatic activity/volume] in Serum or Plasma 2025-05-21 17:02:15 237 U/L F 120.0-246.0 Protein [Mass/volume] in Serum or Plasma 2025-05-21 17:02:15 7.6 g/dL F 5.7-8.2 Potassium [Moles/volume] in Serum or Plasma 2025-04-03 07:27:44 4.6 mEq/L F 3.5-5.1 VLDL-CHOL(CALC) 2025-04-02 19:05:19 42 mg/dL F 0.0-29.0 A/G RATIO 2025-04-02 19:05:19 1.4 Calc F 1.0-2.5 GLOBULIN 2025-04-02 19:05:19 3.2 g/dL F 0.9-5.0 LDL-CHOLESTEROL 2025-04-02 19:05:19 94 mg/dL F 0.0-99.0 CHOL/HDL RATIO 2025-04-02 19:05:19 2.9 Calc F 3.3-5.0 Bicarbonate [Moles/volume] in Serum or Plasma 2025-04-02 19:04:15 22 mEq/L F 20.0-31.0 Lactate dehydrogenase [Enzymatic activity/volume] in Serum or Plasma 2025-04-02 19:04:15 257 U/L F 120.0-246.0 Protein [Mass/volume] in Serum or Plasma 2025-04-02 19:04:15 211 mg/dL F 0.0-149.0 Albumin [Mass/volume] in Serum or Plasma by Bromocresol green (BCG) dye binding method 2025-04-02 19:04:15 4.6 g/dL F 3.2-4.8 Cholesterol [Mass/volume] in Serum or Plasma 2025-04-02 19:04:15 206 mg/dL F 0.0-199.0 Glucose [Mass/volume] in Serum or Plasma 2025-04-02 19:04:15 184 mg/dL F 74.0-106.0 Protein [Mass/volume] in Serum or Plasma 2025-04-02 19:04:15 7.8 g/dL F 5.7-8.2 Cholesterol in HDL [Mass/volume] in Serum or Plasma 2025-04-02 19:04:15 70 mg/dL F 40.0-60.0 Potassium [Moles/volume] in Serum or Plasma 2025-02-21 18:00:04 4.1 mEq/L F 3.5-5.5 Potassium [Moles/volume] in Serum or Plasma 2025-02-21 18:00:04 4.1 mEq/L F 3.5-5.5 GLOBULIN 2025-02-21 14:36:19 3.4 g/dL F 0.9-5.0 A/G RATIO 2025-02-21 14:36:19 1.2 Calc F 1.0-2.5 A/G RATIO 2025-02-21 14:36:19 1.2 Calc F 1.0-2.5 GLOBULIN 2025-02-21 14:36:19 3.4 g/dL F 0.9-5.0 Albumin [Mass/volume] in Serum or Plasma by Bromocresol green (BCG) dye binding method 2025-02-21 14:35:22 4.2 g/dL F 3.4-4.8 Albumin [Mass/volume] in Serum or Plasma by Bromocresol green (BCG) dye binding method 2025-02-21 14:35:22 4.2 g/dL F 3.4-4.8 Lactate dehydrogenase [Enzymatic activity/volume] in Serum or Plasma 2025-02-21 14:35:20 258 U/L F 120.0-246.0 Bicarbonate [Moles/volume] in Serum or Plasma 2025-02-21 14:35:20 23 mEq/L F 20.0-31.0 Protein [Mass/volume] in Serum or Plasma 2025-02-21 14:35:20 7.6 g/dL F 5.7-8.2 Glucose [Mass/volume] in Serum or Plasma 2025-02-21 14:35:20 169 mg/dL F 70.0-99.0 Bicarbonate [Moles/volume] in Serum or Plasma 2025-02-21 14:35:20 23 mEq/L F 20.0-31.0 Glucose [Mass/volume] in Serum or Plasma 2025-02-21 14:35:20 169 mg/dL F 70.0-99.0 Lactate dehydrogenase [Enzymatic activity/volume] in Serum or Plasma 2025-02-21 14:35:20 258 U/L F 120.0-246.0 Protein [Mass/volume] in Serum or Plasma 2025-02-21 14:35:20 7.6 g/dL F 5.7-8.2 Potassium [Moles/volume] in Serum or Plasma 2025-01-02 07:06:00 3.9 mEq/L F 3.5-5.5 GLOBULIN 2025-01-01 17:47:14 3.3 g/dL F 0.9-5.0 A/G RATIO 2025-01-01 17:47:14 1.3 Calc F 1.0-2.5 Lactate dehydrogenase [Enzymatic activity/volume] in Serum or Plasma 2025-01-01 17:46:26 298 U/L F 120.0-246.0 Bicarbonate [Moles/volume] in Serum or Plasma 2025-01-01 17:46:26 24 mEq/L F 20.0-31.0 Albumin [Mass/volume] in Serum or Plasma by Bromocresol green (BCG) dye binding method 2025-01-01 17:46:26 4.2 g/dL F 3.4-4.8 Protein [Mass/volume] in Serum or Plasma 2025-01-01 17:46:26 7.5 g/dL F 5.7-8.2 Potassium [Moles/volume] in Serum or Plasma 2024-12-05 07:02:57 4.4 mEq/L F 3.5-5.5 GLOBULIN 2024-12-04 16:09:14 3.4 g/dL F 0.9-5.0 A/G RATIO 2024-12-04 16:09:14 1.3 Calc F 1.0-2.5 Lactate dehydrogenase [Enzymatic activity/volume] in Serum or Plasma 2024-12-04 16:08:27 238 U/L F 120.0-246.0 Protein [Mass/volume] in Serum or Plasma 2024-12-04 16:08:27 7.7 g/dL F 5.7-8.2 Bicarbonate [Moles/volume] in Serum or Plasma 2024-12-04 16:08:25 26 mEq/L F 20.0-31.0 Albumin [Mass/volume] in Serum or Plasma by Bromocresol green (BCG) dye binding method 2024-12-04 16:08:25 4.3 g/dL F 3.4-4.8 Glucose [Mass/volume] in Serum or Plasma 2024-12-04 16:08:25 171 mg/dL F 70.0-99.0 Potassium [Moles/volume] in Serum or Plasma 2024-11-10 06:43:31 4.5 mEq/L F 3.5-5.5 GLOBULIN 2024-11-09 08:35:24 3.4 g/dL F 0.9-5.0 A/G RATIO 2024-11-09 08:35:24 1.2 Calc F 1.0-2.5 Lactate dehydrogenase [Enzymatic activity/volume] in Serum or Plasma 2024-11-09 08:34:23 224 U/L F 120.0-246.0 Bicarbonate [Moles/volume] in Serum or Plasma 2024-11-09 08:34:23 25 mEq/L F 20.0-31.0 Albumin [Mass/volume] in Serum or Plasma by Bromocresol green (BCG) dye binding method 2024-11-09 08:34:23 4.2 g/dL F 3.4-4.8 Protein [Mass/volume] in Serum or Plasma 2024-11-09 08:34:23 7.6 g/dL F 5.7-8.2 Glucose [Mass/volume] in Serum or Plasma 2024-11-09 08:34:23 143 mg/dL F 70.0-99.0 Potassium [Moles/volume] in Serum or Plasma 2024-10-04 21:07:10 4 mEq/L F 3.5-5.5 GLOBULIN 2024-10-04 14:28:22 3.6 g/dL F 0.9-5.0 A/G RATIO 2024-10-04 14:28:22 1.2 Calc F 1.0-2.5 Lactate dehydrogenase [Enzymatic activity/volume] in Serum or Plasma 2024-10-04 14:27:22 236 U/L F 120.0-246.0 Bicarbonate [Moles/volume] in Serum or Plasma 2024-10-04 14:27:22 27 mEq/L F 20.0-31.0 Albumin [Mass/volume] in Serum or Plasma by Bromocresol green (BCG) dye binding method 2024-10-04 14:27:22 4.2 g/dL F 3.4-4.8 Protein [Mass/volume] in Serum or Plasma 2024-10-04 14:27:22 7.8 g/dL F 5.7-8.2 Glucose [Mass/volume] in Serum or Plasma 2024-10-04 14:27:22 114 mg/dL F 70.0-99.0 Potassium [Moles/volume] in Serum or Plasma 2024-09-07 03:59:39 4.4 mEq/L F 3.5-5.5 GLOBULIN 2024-09-06 14:16:48 3.5 g/dL F 0.9-5.0 A/G RATIO 2024-09-06 14:16:48 1.3 Calc F 1.0-2.5 Lactate dehydrogenase [Enzymatic activity/volume] in Serum or Plasma 2024-09-06 14:15:23 247 U/L F 120.0-246.0 Bicarbonate [Moles/volume] in Serum or Plasma 2024-09-06 14:15:23 26 mEq/L F 20.0-31.0 Albumin [Mass/volume] in Serum or Plasma by Bromocresol green (BCG) dye binding method 2024-09-06 14:15:23 4.6 g/dL F 3.4-4.8 Protein [Mass/volume] in Serum or Plasma 2024-09-06 14:15:23 8.1 g/dL F 5.7-8.2 Glucose [Mass/volume] in Serum or Plasma 2024-09-06 14:15:23 205 mg/dL F 70.0-99.0 Potassium [Moles/volume] in Serum or Plasma 2024-08-10 07:26:43 4.7 mEq/L F 3.5-5.5 GLOBULIN 2024-08-10 00:45:29 3.5 g/dL F 0.9-5.0 A/G RATIO 2024-08-10 00:45:29 1.2 Calc F 1.0-2.5 Lactate dehydrogenase [Enzymatic activity/volume] in Serum or Plasma 2024-08-10 00:43:24 236 U/L F 120.0-246.0 Bicarbonate [Moles/volume] in Serum or Plasma 2024-08-10 00:43:24 28 mEq/L F 20.0-31.0 Albumin [Mass/volume] in Serum or Plasma by Bromocresol green (BCG) dye binding method 2024-08-10 00:43:24 4.1 g/dL F 3.4-4.8 Protein [Mass/volume] in Serum or Plasma 2024-08-10 00:43:24 7.6 g/dL F 5.7-8.2 Glucose [Mass/volume] in Serum or Plasma 2024-08-10 00:43:24 203 mg/dL F 70.0-99.0 Potassium [Moles/volume] in Serum or Plasma 2024-07-04 16:17:52 4 mEq/L F 3.5-5.5 GLOBULIN 2024-07-04 13:53:07 3.4 g/dL F 0.9-5.0 A/G RATIO 2024-07-04 13:53:07 1.2 Calc F 1.0-2.5 Lactate dehydrogenase [Enzymatic activity/volume] in Serum or Plasma 2024-07-04 13:52:18 226 U/L F 120.0-246.0 Bicarbonate [Moles/volume] in Serum or Plasma 2024-07-04 13:52:18 27 mEq/L F 20.0-31.0 Albumin [Mass/volume] in Serum or Plasma by Bromocresol green (BCG) dye binding method 2024-07-04 13:52:18 4.2 g/dL F 3.4-4.8 Protein [Mass/volume] in Serum or Plasma 2024-07-04 13:52:18 7.6 g/dL F 5.7-8.2 Glucose [Mass/volume] in Serum or Plasma 2024-07-04 13:52:18 181 mg/dL F 70.0-99.0 Potassium [Moles/volume] in Serum or Plasma 2024-06-13 16:16:50 4.4 mEq/L F 3.5-5.5 GLOBULIN 2024-06-13 13:44:12 3.4 g/dL F 0.9-5.0 A/G RATIO 2024-06-13 13:44:12 1.3 Calc F 1.0-2.5 Lactate dehydrogenase [Enzymatic activity/volume] in Serum or Plasma 2024-06-13 13:43:36 228 U/L F 120.0-246.0 Bicarbonate [Moles/volume] in Serum or Plasma 2024-06-13 13:43:36 28 mEq/L F 20.0-31.0 Albumin [Mass/volume] in Serum or Plasma by Bromocresol green (BCG) dye binding method 2024-06-13 13:43:36 4.4 g/dL F 3.4-4.8 Protein [Mass/volume] in Serum or Plasma 2024-06-13 13:43:36 7.8 g/dL F 5.7-8.2 Glucose [Mass/volume] in Serum or Plasma 2024-06-13 13:43:36 274 mg/dL F 70.0-99.0 GLOBULIN 2024-06-06 19:58:40 F Recollect - Shipping temp out of range A/G RATIO 2024-06-06 19:58:40 F Recollect - Shipping temp out of range Albumin [Mass/volume] in Serum or Plasma by Bromocresol green (BCG) dye binding method 2024-06-06 13:37:10 F Recollect - Shipping temp out of range Bicarbonate [Moles/volume] in Serum or Plasma 2024-06-06 13:37:10 F Recollect - Shipping temp out of range Lactate dehydrogenase [Enzymatic activity/volume] in Serum or Plasma 2024-06-06 13:37:10 F Recollect - Shipping temp out of range Potassium [Moles/volume] in Serum or Plasma 2024-06-06 13:37:10 F Recollect - Shipping temp out of range Glucose [Mass/volume] in Serum or Plasma 2024-06-06 13:37:10 F Recollect - Shipping temp out of range Protein [Mass/volume] in Serum or Plasma 2024-06-06 13:37:10 F Recollect - Shipping temp out of range Potassium [Moles/volume] in Serum or Plasma 2024-05-03 02:33:15 4.5 mEq/L F 3.5-5.5 A/G RATIO 2024-05-02 19:25:32 1.1 Calc F 1.0-2.5 GLOBULIN 2024-05-02 19:25:32 3.5 g/dL F 0.9-5.0 Lactate dehydrogenase [Enzymatic activity/volume] in Serum or Plasma 2024-05-02 19:24:31 208 U/L F 120.0-246.0 Bicarbonate [Moles/volume] in Serum or Plasma 2024-05-02 19:24:31 28 mEq/L F 20.0-31.0 Albumin [Mass/volume] in Serum or Plasma by Bromocresol green (BCG) dye binding method 2024-05-02 19:24:31 3.8 g/dL F 3.4-4.8 Protein [Mass/volume] in Serum or Plasma 2024-05-02 19:24:31 7.3 g/dL F 5.7-8.2 Glucose [Mass/volume] in Serum or Plasma 2024-05-02 19:24:31 155 mg/dL F 70.0-99.0 Potassium [Moles/volume] in Serum or Plasma 2024-04-12 05:00:54 4.3 mEq/L F 3.5-5.5 GLOBULIN 2024-04-11 20:38:43 3.2 g/dL F 0.9-5.0 A/G RATIO 2024-04-11 20:38:43 1.3 Calc F 1.0-2.5 Lactate dehydrogenase [Enzymatic activity/volume] in Serum or Plasma 2024-04-11 20:38:33 208 U/L F 120.0-246.0 Bicarbonate [Moles/volume] in Serum or Plasma 2024-04-11 20:38:33 28 mEq/L F 20.0-31.0 Albumin [Mass/volume] in Serum or Plasma by Bromocresol green (BCG) dye binding method 2024-04-11 20:38:33 4 g/dL F 3.4-4.8 Protein [Mass/volume] in Serum or Plasma 2024-04-11 20:38:33 7.2 g/dL F 5.7-8.2 Glucose [Mass/volume] in Serum or Plasma 2024-04-11 20:38:33 229 mg/dL F 70.0-99.0 GLOBULIN 2024-04-09 07:35:01 F Canceled - Specimen not received 5 days past draw date A/G RATIO 2024-04-09 07:35:01 F Canceled - Specimen not received 5 days past draw date Glucose [Mass/volume] in Serum or Plasma 2024-04-09 07:23:30 F Canceled - Specimen not received 5 days past draw date Protein [Mass/volume] in Serum or Plasma 2024-04-09 07:23:30 F Canceled - Specimen not received 5 days past draw date Albumin [Mass/volume] in Serum or Plasma by Bromocresol green (BCG) dye binding method 2024-04-09 07:23:30 F Canceled - Specimen not received 5 days past draw date Potassium [Moles/volume] in Serum or Plasma 2024-04-09 07:23:30 F Canceled - Specimen not received 5 days past draw date Bicarbonate [Moles/volume] in Serum or Plasma 2024-04-09 07:23:30 F Canceled - Specimen not received 5 days past draw date Lactate dehydrogenase [Enzymatic activity/volume] in Serum or Plasma 2024-04-09 07:23:30 F Canceled - Specimen not received 5 days past draw date Potassium [Moles/volume] in Serum or Plasma 2024-03-08 05:09:40 4.2 mEq/L F 3.5-5.5 Cobalamin (Vitamin B12) [Mass/volume] in Serum or Plasma 2024-03-08 00:22:17 584 pg/mL F 211.0-911.0 VLDL-CHOL(CALC) 2024-03-07 20:27:49 35 mg/dL F 0.0-29.0 LDL-CHOLESTEROL 2024-03-07 20:27:49 107 mg/dL F 0.0-99.0 GLOBULIN 2024-03-07 20:27:49 3.5 g/dL F 0.9-5.0 A/G RATIO 2024-03-07 20:27:49 1.2 Calc F 1.0-2.5 CHOL/HDL RATIO 2024-03-07 20:27:49 2.8 Calc F 3.3-5.0 Protein [Mass/volume] in Serum or Plasma 2024-03-07 20:27:38 175 mg/dL F 0.0-149.0 Cholesterol [Mass/volume] in Serum or Plasma 2024-03-07 20:27:38 222 mg/dL F 0.0-199.0 Lactate dehydrogenase [Enzymatic activity/volume] in Serum or Plasma 2024-03-07 20:27:38 233 U/L F 120.0-246.0 Bicarbonate [Moles/volume] in Serum or Plasma 2024-03-07 20:27:38 28 mEq/L F 20.0-31.0 Albumin [Mass/volume] in Serum or Plasma by Bromocresol green (BCG) dye binding method 2024-03-07 20:27:38 4.3 g/dL F 3.4-4.8 Cholesterol in HDL [Mass/volume] in Serum or Plasma 2024-03-07 20:27:38 80 mg/dL F 40.0-60.0 Protein [Mass/volume] in Serum or Plasma 2024-03-07 20:27:38 7.8 g/dL F 5.7-8.2 Glucose [Mass/volume] in Serum or Plasma 2024-03-07 20:27:38 72 mg/dL F 70.0-99.0 Potassium [Moles/volume] in Serum or Plasma 2024-02-01 18:33:00 4.7 mEq/L F 3.5-5.5 GLOBULIN 2024-02-01 14:47:44 3.6 g/dL F 0.9-5.0 A/G RATIO 2024-02-01 14:47:44 1.2 Calc F 1.0-2.5 Lactate dehydrogenase [Enzymatic activity/volume] in Serum or Plasma 2024-02-01 14:47:33 244 U/L F 120.0-246.0 Bicarbonate [Moles/volume] in Serum or Plasma 2024-02-01 14:47:33 25 mEq/L F 20.0-31.0 Albumin [Mass/volume] in Serum or Plasma by Bromocresol green (BCG) dye binding method 2024-02-01 14:47:33 4.3 g/dL F 3.4-4.8 Protein [Mass/volume] in Serum or Plasma 2024-02-01 14:47:33 7.9 g/dL F 5.7-8.2 Glucose [Mass/volume] in Serum or Plasma 2024-02-01 14:47:33 168 mg/dL F 70.0-99.0 Potassium [Moles/volume] in Serum or Plasma 2024-01-05 06:39:54 4.2 mEq/L F 3.5-5.5 GLOBULIN 2024-01-05 03:21:48 3.5 g/dL F 0.9-5.0 A/G RATIO 2024-01-05 03:21:48 1.1 Calc F 1.0-2.5 Lactate dehydrogenase [Enzymatic activity/volume] in Serum or Plasma 2024-01-05 03:21:34 237 U/L F 120.0-246.0 Bicarbonate [Moles/volume] in Serum or Plasma 2024-01-05 03:21:34 28 mEq/L F 20.0-31.0 Albumin [Mass/volume] in Serum or Plasma by Bromocresol green (BCG) dye binding method 2024-01-05 03:21:34 3.9 g/dL F 3.4-4.8 Protein [Mass/volume] in Serum or Plasma 2024-01-05 03:21:34 7.4 g/dL F 5.7-8.2 Glucose [Mass/volume] in Serum or Plasma 2024-01-05 03:21:34 189 mg/dL F 70.0-99.0 Potassium [Moles/volume] in Serum or Plasma 2023-12-08 06:52:52 4.6 mEq/L F 3.5-5.5 GLOBULIN 2023-12-07 22:01:54 3.5 g/dL F 0.9-5.0 A/G RATIO 2023-12-07 22:01:54 1.2 Calc F 1.0-2.5 Lactate dehydrogenase [Enzymatic activity/volume] in Serum or Plasma 2023-12-07 22:01:38 224 U/L F 120.0-246.0 Bicarbonate [Moles/volume] in Serum or Plasma 2023-12-07 22:01:38 29 mEq/L F 20.0-31.0 Albumin [Mass/volume] in Serum or Plasma by Bromocresol green (BCG) dye binding method 2023-12-07 22:01:38 4.2 g/dL F 3.4-4.8 Protein [Mass/volume] in Serum or Plasma 2023-12-07 22:01:38 7.7 g/dL F 5.7-8.2 Glucose [Mass/volume] in Serum or Plasma 2023-12-07 22:01:38 117 mg/dL F 70.0-99.0 Potassium [Moles/volume] in Serum or Plasma 2023-11-04 08:11:15 4.6 mEq/L F 3.5-5.5 GLOBULIN 2023-11-04 04:43:34 3.5 g/dL F 0.9-5.0 A/G RATIO 2023-11-04 04:43:34 1.2 Calc F 1.0-2.5 Lactate dehydrogenase [Enzymatic activity/volume] in Serum or Plasma 2023-11-04 04:43:03 214 U/L F 120.0-246.0 Bicarbonate [Moles/volume] in Serum or Plasma 2023-11-04 04:43:03 26 mEq/L F 20.0-31.0 Albumin [Mass/volume] in Serum or Plasma by Bromocresol green (BCG) dye binding method 2023-11-04 04:43:03 4.3 g/dL F 3.4-4.8 Glucose [Mass/volume] in Serum or Plasma 2023-11-04 04:43:03 229 mg/dL F 70.0-99.0 Protein [Mass/volume] in Serum or Plasma 2023-11-04 04:43:03 7.8 g/dL F 5.7-8.2 Potassium [Moles/volume] in Serum or Plasma 2023-10-05 23:25:31 4.9 mEq/L F 3.5-5.5 GLOBULIN 2023-10-05 15:31:44 3.4 g/dL F 0.9-5.0 A/G RATIO 2023-10-05 15:31:44 1.2 Calc F 1.0-2.5 Lactate dehydrogenase [Enzymatic activity/volume] in Serum or Plasma 2023-10-05 15:31:32 230 U/L F 120.0-246.0 Bicarbonate [Moles/volume] in Serum or Plasma 2023-10-05 15:31:32 30 mEq/L F 20.0-31.0 Albumin [Mass/volume] in Serum or Plasma by Bromocresol green (BCG) dye binding method 2023-10-05 15:31:32 4.1 g/dL F 3.4-4.8 Protein [Mass/volume] in Serum or Plasma 2023-10-05 15:31:32 7.5 g/dL F 5.7-8.2 Glucose [Mass/volume] in Serum or Plasma 2023-10-05 15:31:32 174 mg/dL F 70.0-99.0 A/G RATIO 2023-08-31 18:15:48 1.2 Calc F 1.0-2.5 GLOBULIN 2023-08-31 18:15:48 3.4 g/dL F 0.9-5.0 Lactate dehydrogenase [Enzymatic activity/volume] in Serum or Plasma 2023-08-31 18:15:36 216 U/L F 120.0-246.0 Bicarbonate [Moles/volume] in Serum or Plasma 2023-08-31 18:15:36 25 mEq/L F 20.0-31.0 Albumin [Mass/volume] in Serum or Plasma by Bromocresol green (BCG) dye binding method 2023-08-31 18:15:36 4.1 g/dL F 3.4-4.8 Potassium [Moles/volume] in Serum or Plasma 2023-08-31 18:15:36 4.7 mEq/L F 3.5-5.5 Protein [Mass/volume] in Serum or Plasma 2023-08-31 18:15:36 7.5 g/dL F 5.7-8.2 Glucose [Mass/volume] in Serum or Plasma 2023-08-31 18:15:36 275 mg/dL F 70.0-99.0 GLOBULIN 2023-08-03 16:43:41 3.6 g/dL F 0.9-5.0 A/G RATIO 2023-08-03 16:43:41 1.2 Calc F 1.0-2.5 Lactate dehydrogenase [Enzymatic activity/volume] in Serum or Plasma 2023-08-03 16:42:39 230 U/L F 120.0-246.0 Bicarbonate [Moles/volume] in Serum or Plasma 2023-08-03 16:42:39 27 mEq/L F 20.0-31.0 Albumin [Mass/volume] in Serum or Plasma by Bromocresol green (BCG) dye binding method 2023-08-03 16:42:39 4.2 g/dL F 3.4-4.8 Potassium [Moles/volume] in Serum or Plasma 2023-08-03 16:42:39 4.7 mEq/L F 3.5-5.5 Protein [Mass/volume] in Serum or Plasma 2023-08-03 16:42:39 7.8 g/dL F 5.7-8.2 Glucose [Mass/volume] in Serum or Plasma 2023-08-03 16:42:39 270 mg/dL F 70.0-99.0 A/G RATIO 2023-07-06 17:14:48 1.2 Calc F 1.0-2.5 GLOBULIN 2023-07-06 17:14:48 3.6 g/dL F 0.9-5.0 Lactate dehydrogenase [Enzymatic activity/volume] in Serum or Plasma 2023-07-06 17:14:36 254 U/L F 120.0-246.0 Bicarbonate [Moles/volume] in Serum or Plasma 2023-07-06 17:14:36 26 mEq/L F 20.0-31.0 Potassium [Moles/volume] in Serum or Plasma 2023-07-06 17:14:36 4.8 mEq/L F 3.5-5.5 Albumin [Mass/volume] in Serum or Plasma by Bromocresol green (BCG) dye binding method 2023-07-06 17:14:36 4.4 g/dL F 3.4-4.8 Protein [Mass/volume] in Serum or Plasma 2023-07-06 17:14:36 8 g/dL F 5.7-8.2 Glucose [Mass/volume] in Serum or Plasma 2023-07-06 17:14:36 264 mg/dL F 70.0-99.0 GLOBULIN 2023-06-08 15:34:01 4.1 g/dL F 0.9-5.0 A/G RATIO 2023-06-08 15:34:01 1.1 Calc F 1.0-2.5 Lactate dehydrogenase [Enzymatic activity/volume] in Serum or Plasma 2023-06-08 15:33:41 273 U/L F 120.0-246.0 Bicarbonate [Moles/volume] in Serum or Plasma 2023-06-08 15:33:41 26 mEq/L F 20.0-31.0 Albumin [Mass/volume] in Serum or Plasma by Bromocresol green (BCG) dye binding method 2023-06-08 15:33:41 4.4 g/dL F 3.4-4.8 Potassium [Moles/volume] in Serum or Plasma 2023-06-08 15:33:41 5.3 mEq/L F 3.5-5.5 Protein [Mass/volume] in Serum or Plasma 2023-06-08 15:33:41 8.5 g/dL F 5.7-8.2 Glucose [Mass/volume] in Serum or Plasma 2023-06-08 15:33:41 413 mg/dL F 70.0-99.0 GLOBULIN 2023-05-04 15:06:26 3.8 g/dL F 0.9-5.0 A/G RATIO 2023-05-04 15:06:26 1.1 Calc F 1.0-2.5 Albumin [Mass/volume] in Serum or Plasma by Bromocresol green (BCG) dye binding method 2023-05-04 15:05:49 4.1 g/dL F 3.4-4.8 Lactate dehydrogenase [Enzymatic activity/volume] in Serum or Plasma 2023-05-04 15:05:46 237 U/L F 120.0-246.0 Bicarbonate [Moles/volume] in Serum or Plasma 2023-05-04 15:05:46 27 mEq/L F 20.0-31.0 Potassium [Moles/volume] in Serum or Plasma 2023-05-04 15:05:46 4.6 mEq/L F 3.5-5.5 Protein [Mass/volume] in Serum or Plasma 2023-05-04 15:05:46 7.9 g/dL F 5.7-8.2 Glucose [Mass/volume] in Serum or Plasma 2023-05-04 15:05:46 279 mg/dL F 70.0-99.0 A/G RATIO 2023-04-06 21:14:32 1.1 Calc F 1.0-2.5 GLOBULIN 2023-04-06 21:14:32 3.7 g/dL F 0.9-5.0 Lactate dehydrogenase [Enzymatic activity/volume] in Serum or Plasma 2023-04-06 21:13:25 230 U/L F 120.0-246.0 Bicarbonate [Moles/volume] in Serum or Plasma 2023-04-06 21:13:25 29 mEq/L F 20.0-31.0 Albumin [Mass/volume] in Serum or Plasma by Bromocresol green (BCG) dye binding method 2023-04-06 21:13:25 4.1 g/dL F 3.4-4.8 Potassium [Moles/volume] in Serum or Plasma 2023-04-06 21:13:25 4.9 mEq/L F 3.5-5.5 Protein [Mass/volume] in Serum or Plasma 2023-04-06 21:13:25 7.8 g/dL F 5.7-8.2 Glucose [Mass/volume] in Serum or Plasma 2023-04-06 21:13:25 212 mg/dL F 70.0-99.0 VLDL-CHOL(CALC) 2023-03-02 16:13:04 37 mg/dL F 0.0-29.0 LDL-CHOLESTEROL 2023-03-02 16:13:04 112 mg/dL F 0.0-99.0 GLOBULIN 2023-03-02 16:13:04 3.7 g/dL F 0.9-5.0 A/G RATIO 2023-03-02 16:13:04 1.1 Calc F 1.0-2.5 CHOL/HDL RATIO 2023-03-02 16:13:04 2.9 Calc F 3.3-5.0 Protein [Mass/volume] in Serum or Plasma 2023-03-02 16:12:19 184 mg/dL F 0.0-149.0 Cholesterol [Mass/volume] in Serum or Plasma 2023-03-02 16:12:19 229 mg/dL F 0.0-199.0 Lactate dehydrogenase [Enzymatic activity/volume] in Serum or Plasma 2023-03-02 16:12:19 239 U/L F 120.0-246.0 Bicarbonate [Moles/volume] in Serum or Plasma 2023-03-02 16:12:19 28 mEq/L F 20.0-31.0 Albumin [Mass/volume] in Serum or Plasma by Bromocresol green (BCG) dye binding method 2023-03-02 16:12:19 4.2 g/dL F 3.4-4.8 Potassium [Moles/volume] in Serum or Plasma 2023-03-02 16:12:19 5.3 mEq/L F 3.5-5.5 Protein [Mass/volume] in Serum or Plasma 2023-03-02 16:12:19 7.9 g/dL F 5.7-8.2 Cholesterol in HDL [Mass/volume] in Serum or Plasma 2023-03-02 16:12:19 80 mg/dL F 40.0-60.0 Glucose [Mass/volume] in Serum or Plasma 2023-03-02 16:12:19 215 mg/dL F 70.0-99.0 Cobalamin (Vitamin B12) [Mass/volume] in Serum or Plasma 2023-03-02 16:06:10 1239 pg/mL F 211.0-911.0 GLOBULIN 2023-02-02 18:36:44 3.5 g/dL F 0.9-5.0 A/G RATIO 2023-02-02 18:36:44 1.1 Calc F 1.0-2.5 Lactate dehydrogenase [Enzymatic activity/volume] in Serum or Plasma 2023-02-02 18:36:19 292 U/L F 120.0-246.0 Bicarbonate [Moles/volume] in Serum or Plasma 2023-02-02 18:36:19 26 mEq/L F 20.0-31.0 Albumin [Mass/volume] in Serum or Plasma by Bromocresol green (BCG) dye binding method 2023-02-02 18:36:19 4 g/dL F 3.4-4.8 Potassium [Moles/volume] in Serum or Plasma 2023-02-02 18:36:19 4.7 mEq/L F 3.5-5.5 Protein [Mass/volume] in Serum or Plasma 2023-02-02 18:36:19 7.5 g/dL F 5.7-8.2 Glucose [Mass/volume] in Serum or Plasma 2023-02-02 18:36:19 268 mg/dL F 70.0-99.0 GLOBULIN 2023-01-05 20:20:46 3.6 g/dL F 0.9-5.0 A/G RATIO 2023-01-05 20:20:46 1.2 Calc F 1.0-2.5 Lactate dehydrogenase [Enzymatic activity/volume] in Serum or Plasma 2023-01-05 20:20:20 217 U/L F 120.0-246.0 Bicarbonate [Moles/volume] in Serum or Plasma 2023-01-05 20:20:20 26 mEq/L F 20.0-31.0 Albumin [Mass/volume] in Serum or Plasma by Bromocresol green (BCG) dye binding method 2023-01-05 20:20:20 4.4 g/dL F 3.4-4.8 Potassium [Moles/volume] in Serum or Plasma 2023-01-05 20:20:20 4.6 mEq/L F 3.5-5.5 Protein [Mass/volume] in Serum or Plasma 2023-01-05 20:20:20 8 g/dL F 5.7-8.2 Glucose [Mass/volume] in Serum or Plasma 2023-01-05 20:20:20 206 mg/dL F 70.0-99.0 GLOBULIN 2022-12-08 17:29:17 3.7 g/dL F 0.9-5.0 A/G RATIO 2022-12-08 17:29:17 1.2 Calc F 1.0-2.5 Lactate dehydrogenase [Enzymatic activity/volume] in Serum or Plasma 2022-12-08 17:28:52 211 U/L F 120.0-246.0 Bicarbonate [Moles/volume] in Serum or Plasma 2022-12-08 17:28:52 26 mEq/L F 20.0-31.0 Albumin [Mass/volume] in Serum or Plasma by Bromocresol green (BCG) dye binding method 2022-12-08 17:28:52 4.5 g/dL F 3.4-4.8 Potassium [Moles/volume] in Serum or Plasma 2022-12-08 17:28:52 4.3 mEq/L F 3.5-5.5 Protein [Mass/volume] in Serum or Plasma 2022-12-08 17:28:52 8.2 g/dL F 5.7-8.2 Glucose [Mass/volume] in Serum or Plasma 2022-12-08 17:28:52 256 mg/dL F 70.0-99.0 A/G RATIO 2022-11-03 15:54:41 1.3 Calc F 1.0-2.5 GLOBULIN 2022-11-03 15:54:41 3.6 g/dL F 0.9-5.0 Lactate dehydrogenase [Enzymatic activity/volume] in Serum or Plasma 2022-11-03 15:53:55 222 U/L F 120.0-246.0 Bicarbonate [Moles/volume] in Serum or Plasma 2022-11-03 15:53:55 27 mEq/L F 20.0-31.0 Albumin [Mass/volume] in Serum or Plasma by Bromocresol green (BCG) dye binding method 2022-11-03 15:53:55 4.5 g/dL F 3.4-4.8 Potassium [Moles/volume] in Serum or Plasma 2022-11-03 15:53:55 4.6 mEq/L F 3.5-5.5 Protein [Mass/volume] in Serum or Plasma 2022-11-03 15:53:55 8.1 g/dL F 5.7-8.2 Glucose [Mass/volume] in Serum or Plasma 2022-11-03 15:53:55 223 mg/dL F 70.0-99.0 GLOBULIN 2022-10-06 19:57:05 3.5 g/dL F 0.9-5.0 A/G RATIO 2022-10-06 19:57:05 1.2 Calc F 1.0-2.5 Lactate dehydrogenase [Enzymatic activity/volume] in Serum or Plasma 2022-10-06 19:56:44 241 U/L F 120.0-246.0 Bicarbonate [Moles/volume] in Serum or Plasma 2022-10-06 19:56:44 28 mEq/L F 20.0-31.0 Albumin [Mass/volume] in Serum or Plasma by Bromocresol green (BCG) dye binding method 2022-10-06 19:56:44 4.2 g/dL F 3.4-4.8 Potassium [Moles/volume] in Serum or Plasma 2022-10-06 19:56:44 4.6 mEq/L F 3.5-5.5 Protein [Mass/volume] in Serum or Plasma 2022-10-06 19:56:44 7.7 g/dL F 5.7-8.2 Glucose [Mass/volume] in Serum or Plasma 2022-10-06 19:56:44 159 mg/dL F 70.0-99.0 Encounters No encounter information to report Immunizations Ordered Immunization Name Filled Immunization Name Date Status Comments Refusal Reason Influenza, high-dose, quadrivalent, PF 2025-07-26 13:46:00 TST-PPD intradermal 2024-10-03 19:02:00 Influenza, high-dose, quadrivalent, PF 2024-07-25 11:29:37 TST-PPD intradermal 2023-10-02 17:53:13 Hep B, adult 2023-02-03 16:53:31 TB Skin Test 2022-10-05 06:00:00 Pneumococcal conjugate PCV20, polysaccharide [id number] conjugate, adjuvant, PF 2022-03-04 05:00:00 Covid-19 Vaccination 2021-10-09 06:00:00 Covid-19 Vaccination 2021-03-03 08:00:00 Covid-19 Vaccination 2021-02-10 08:00:00 Plan of Treatment Planned Activity Provider Planned Date Details Commen ts Diagnostic Test Pending JONAH COLEMAN 2025-07-26 06:36:33 Alanine aminotransferase [Enzymatic activity/volume] in Serum or Plasma [code = 1742-6] Diagnostic Test Pending [facility] 2025-03-22 06:15:08 Ferritin [Mass/volume] in Serum or Plasma [code = 2276-4] Diagnostic Test Pending [facility] 2025-01-21 16:12:55 Glucose [Mass/volume] in Serum or Plasma [code = 2345-7] Diagnostic Test Pending [facility] 2024-12-21 06:00:00 Alanine aminotransferase [Enzymatic activity/volume] in Serum or Plasma [code = 1742-6] Diagnostic Test Pending [facility] 2024-12-21 06:00:00 Sodium [Moles/volume] in Serum or Plasma [code = 2951-2] Diagnostic Test Pending [facility] 2024-12-05 20:31:36 Potassium [Moles/volume] in Serum or Plasma [code = 2823-3] Diagnostic Test Pending [facility] 2024-12-21 06:00:00 Creatinine [Mass/volume] in Serum or Plasma [code = 2160-0] Diagnostic Test Pending [facility] 2024-12-05 20:33:17 25-Hydroxyvitamin D3+25-Hydroxyvitamin D2 [Mass/volume] in Serum or Plasma [code = 75268-1] Diagnostic Test Pending [facility] 2024-12-05 20:32:51 Cobalamin (Vitamin B12) [Mass/volume] in Serum or Plasma [code = 2132-9] Diagnostic Test Pending [facility] 2024-12-05 20:29:05 Hemoglobin A1c/Hemoglobin.total in Blood [code = 4548-4] Diagnostic Test Pending [facility] 2024-11-07 07:36:57 Hemoglobin [Mass/volume] in Blood [code = 718-7] Diagnostic Test Pending [facility] 2024-11-07 07:34:02 Parathyrin.intact [Mass/volume] in Serum or Plasma [code = 2731-8] Diagnostic Test Pending [facility] 2024-12-05 20:26:37 Aluminum [Mass/volume] in Serum or Plasma [code = 5574-9] Diagnostic Test Pending [facility] 2024-11-07 07:34:13 Ferritin [Mass/volume] in Serum or Plasma [code = 2276-4] Diagnostic Test Pending [facility] 2025-03-27 06:17:03 Parathyrin.intact [Mass/volume] in Serum or Plasma [code = 2731-8] Diagnostic Test Pending [facility] 2025-03-26 19:41:32 Alanine aminotransferase [Enzymatic activity/volume] in Serum or Plasma [code = 1742-6] Diagnostic Test Pending [facility] 2025-03-27 06:16:36 Ferritin [Mass/volume] in Serum or Plasma [code = 2276-4] Diagnostic Test Pending [facility] 2025-03-27 06:17:04 Hemoglobin [Mass/volume] in Blood [code = 718-7] Diagnostic Test Pending [facility] 2025-03-26 19:34:29 Glucose [Mass/volume] in Serum or Plasma [code = 2345-7] Diagnostic Test Pending [facility] 2025-03-26 19:34:56 Sodium [Moles/volume] in Serum or Plasma [code = 2951-2] Diagnostic Test Pending [facility] 2025-03-26 19:39:07 Aluminum [Mass/volume] in Serum or Plasma [code = 5574-9] Diagnostic Test Pending [facility] 2025-03-26 19:41:08 Albumin [Mass/volume] in Serum or Plasma by Bromocresol green (BCG) dye binding method [code = 37397-0] Diagnostic Test Pending [facility] 2025-03-26 19:33:21 Creatinine [Mass/volume] in Serum or Plasma [code = 2160-0] Diagnostic Test Pending [facility] 2025-03-26 19:38:43 25-Hydroxyvitamin D3+25-Hydroxyvitamin D2 [Mass/volume] in Serum or Plasma [code = 95794-9] Diagnostic Test Pending [facility] 2025-03-26 19:38:16 Hemoglobin A1c/Hemoglobin.total in Blood [code = 4548-4] Diagnostic Test Pending [facility] 2025-07-14 05:00:00 Calcium [Mass/volume] in Serum or Plasma [code = 36211-8] Future Scheduled Test [facility] 2025-08-23 05:00:00 Ferritin [Mass/volume] in Serum or Plasma [code = 2276-4] Diagnostic Test Pending [facility] 2025-05-04 05:00:00 In-Center Hemodialysis Treatment [code = ALP802] Diagnostic Test Pending [facility] 2024-12-04 06:00:00 In-Center Hemodialysis Treatment [code = RIF951] Diet Order [facility] April 19, 2025 Diet Calorie 25 kcal/kg Fluid Value 1000 mL/d Phosphorus Value 1200 mg/d Potassium Value 3000 mg/d Protein Value 1.2 gm/kg Sodium Value 2000 mg/d Calculated Weight 110 kg dietary_diet_modification Carb Controlle d; [facility] Observation Value Diet Calorie 25 kcal/kg Fluid Value 1000 mL/d Phosphorus Value 1100 mg/d Potassium Value 2500 mg/d Protein Value 1.2 gm/kg Sodium Value 2000 mg/d Calculated Weight 94.5 kg dietary_diet_modification Carb Controlle d; [facility] 2025-10-02 06:00:00Tubersol [code = 192623]
--- OUTSIDE RECORDS SUMMARY | 2025-07-28 16:07 | XMS_ITS ---
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 Assessment & Plan (10/26/2023 9:15 AM LINUX SOLARIS ADMINISTRATOR): Defer cataract surgery until signs and symptoms indicate. Pt was educated on the diagnosis. Recommend daily UV eye protection. Assessment & Plan (10/27/2020 9:01 AM LINUX SOLARIS ADMINISTRATOR): Not yet Visually significant; defer cataract extraction [...] rescue Assessment & Plan (11/23/2019 5:30 PM LINUX SOLARIS ADMINISTRATOR): Due to insulin overdose (accidental) - continue to monitor as above and treat as needed per hypoglycemia protocol Assessment & Plan (11/22/2019 10:08 PM LINUX SOLARIS ADMINISTRATOR): Due to insulin overdose (accidental) - continue to monitor as above and treat as needed per hypoglycemia protocol Cellulitis of leg, right 11/22/2019 Assessment & Plan (11/23/2019 5:30 PM LINUX SOLARIS ADMINISTRATOR): Was seen by dermatology on 11/08/2019 at which time culture was performed. Patient has culture results which are positive for proteus mirabilis sensitive to ampicillin. She was prescribed ampicillin 500mg BID for 30 days per patient. - Continue ampicillin 500mg BID while inpatient Assessment & Plan (11/22/2019 10:49 PM LINUX SOLARIS ADMINISTRATOR): Was seen by dermatology on 11/08/2019 at [...] be further evaluated by US Pt has seat trimmer and has appointment coming up This [...] etc. Assessment & Plan (08/26/2019 7:42 AM LINUX SOLARIS ADMINISTRATOR): No longer requires insulin therapy now that [...] 10/2019. Had a catheter for HD in [facility]. Initially managed with eliquis but [...] 06/26/2019 Assessment & Plan (11/23/2019 5:30 PM LINUX SOLARIS ADMINISTRATOR): Continue allopurinol Assessment & Plan (11/22/2019 10:03 PM LINUX SOLARIS ADMINISTRATOR): Continue allopurinol Assessment & Plan (07/16/2019 9:40 [...] safety. Assessment & Plan (11/15/2024 9:09 PM LINUX SOLARIS ADMINISTRATOR): Managed by renal, need to minimize risk [...] hypoglycemia. Assessment & Plan (10/20/2022 10:20 AM LINUX SOLARIS ADMINISTRATOR): Need to minimize risk of hypoglycemia. Assessment [...] hypoglycemia Assessment & Plan (11/23/2019 5:30 PM LINUX SOLARIS ADMINISTRATOR): HD MWF Access: Last HD: 11/20 (mon). She had rescheduled her outpatient HD for today (Thursday 11/23 at 10:30am) - consult renal given elevating blood sugars, will need regimen going forward with current infection. Assessment & Plan (11/23/2019 5:20 PM LINUX SOLARIS ADMINISTRATOR): HD MWF Access: Last HD: 11/20 (mon). She had rescheduled her outpatient HD for today (Thursday 11/23 at 10:30am) - consult renal given elevating blood sugars, will need regimen going forward with current infection. Assessment & Plan (08/26/2019 7:43 AM LINUX SOLARIS ADMINISTRATOR): No longer requires insulin therapy. Assessment & [...] bilateral knee pain. Patient discharge with home PT/OT/assisted which has not been initiated. Continue lidocaine [...] bilateral knee pain. Patient discharge with home PT/OT/assisted which has not been initiated. Continue lidocaine [...] bilateral knee pain. Patient discharge with home PT/OT/assisted which has not been initiated. Continue lidocaine patch bilateral knees, oral prn tylenol and diclofenac dose increased to 4gm with improvement. Encouraged patient to use medications to improve mobility with therapy and agreeable. PT/OT for debilitation. Await SNF, insurance approval still pending. Assessment & Plan (07/25/2019 11:17 AM CDT): Recent admission 07/10-07/19 for OA bilateral knee pain. Patient discharge with home PT/OT/assisted which has not been initiated. Continue lidocaine patch bilateral knees, oral prn tylenol and diclofenac dose increased to 4gm with improvement. Encouraged patient to use medications to improve mobility with therapy and agreeable. PT/OT for debilitation. Await SNF Assessment & Plan (07/24/2019 2:04 PM CDT): Recent admission 07/10-07/19 for bilateral knee pain. Patient discharge with home PT/OT/assisted which has not been initiated. -continue lidocaine patch bilateral knees -continue prn tylenol and diclofenac PT/OT for debilitation. Assessment & Plan (07/23/2019 1:55 PM CDT): Recent admission 07/10-07/19 for bilateral knee pain. Patient discharge with home PT/OT/assisted which has not been initiated. -continue lidocaine patch bilateral knees -continue prn tylenol and diclofenac Assessment & Plan (07/22/2019 6:15 PM CDT): Recent admission 07/10-07/19 for bilateral knee pain. Patient discharge with home PT/OT/assisted which has not been initiated. -continue lidocaine [...] 01/09/2019 Assessment & Plan (11/23/2019 5:30 PM LINUX SOLARIS ADMINISTRATOR): Continue phos binder - phos 4.9, prior to dialysis. - patient reports previously low and discontinued sevelamer Assessment & Plan (11/23/2019 5:23 PM LINUX SOLARIS ADMINISTRATOR): Continue phos binder - phos 4.9, prior to dialysis. - patient reports previously low and discontinued sevelamer Anemia of chronic renal failure 06/01/2018 Assessment & Plan (11/23/2019 5:29 PM LINUX SOLARIS ADMINISTRATOR): Usually received darbopoietin on Fridays with HD. - CBC stable. Assessment & Plan (11/23/2019 5:18 PM LINUX SOLARIS ADMINISTRATOR): Usually received darbopoietin on Fridays with HD. [...] etc. Assessment & Plan (11/15/2024 9:10 PM LINUX SOLARIS ADMINISTRATOR): Overall glycemic control is within a reasonable range of control and safety. A1c 6.6% Assessment & Plan (05/12/2024 2:26 PM CDT): Glucoses a little high, but need to minimize risk of hypoglycemia. Assessment & Plan (02/08/2024 8:39 PM CDT): Glucoses very high after meals. Needs adjustments in basal and mealtime insulins. Assessment & Plan (10/26/2023 9:15 AM LINUX SOLARIS ADMINISTRATOR): Pt ed. Stressed BG control (HbA1C<7) to [...] diabetes. Assessment & Plan (10/22/2022 12:48 PM LINUX SOLARIS ADMINISTRATOR): Awaiting Hemoglobin A1c result; Dexcom report average [...] and she has also met with a early childhood lead teacher. Assessment & Plan (02/23/2022 10:29 AM CDT): Hemoglobin A1c decreased to 6.8%, with minimal hypoglycemia. Continue using Dexcom for continuous monitoring and low BG alarms. She is taking Lantus PM daily, consistently. She is taking Humalog with meals and using sliding scale. She plans to continue making diet changes to help lower BG. Assessment & Plan (11/18/2021 12:55 PM LINUX SOLARIS ADMINISTRATOR): Needs adjustments in insulins, particularly with variable [...] hypoglycemia. Assessment & Plan (10/27/2020 9:01 AM LINUX SOLARIS ADMINISTRATOR): No retinopath; pt ed BG control -annual [...] today Assessment & Plan (11/15/2024 9:09 PM LINUX SOLARIS ADMINISTRATOR): Continue supplement, monitored by renal Assessment & [...] renal Assessment & Plan (11/18/2021 12:52 PM LINUX SOLARIS ADMINISTRATOR): Continue supplement, monitored by renal Assessment & Plan (03/17/2021 2:38 PM CDT): Continue supplement, monitored by renal Assessment & Plan (03/06/2020 10:42 AM CDT): Continue supplement, monitored by renal Assessment & Plan (06/15/2018 7:52 AM CDT): On daily supplement, chronic renal insufficiency Pes planus 10/18/2012 JASON on CPAP 10/18/2012 Assessment & Plan (11/23/2019 5:30 PM LINUX SOLARIS ADMINISTRATOR): Continue CPAP with sleep. - CPAP ordered Assessment & Plan (11/22/2019 10:09 PM LINUX SOLARIS ADMINISTRATOR): Continue CPAP with sleep. - CPAP ordered [...] Sleeping well. Defer to PCP for long filler cigar roller machine weight management & goal setting for weight loss, with morbid obesity (BMI 60) playing a role. Assessment & Plan (07/27/2019 11:17 AM CDT): JASON w/ cpap at night, setting 11cmHg. Compliant with nightly mask/CPAP. Sleeping well. Defer to PCP for long filler cigar roller machine weight management, with morbid obesity (BMI 60) [...] with nightly mask. Defer to PCP for long filler cigar roller machine weight management, with morbid obesity (BMI 60) [...] QHS Assessment & Plan (11/23/2019 5:30 PM LINUX SOLARIS ADMINISTRATOR): Continue Cymbalta and gabapentin Assessment & Plan (11/22/2019 10:12 PM LINUX SOLARIS ADMINISTRATOR): Continue Cymbalta and gabapentin Assessment & Plan (08/26/2019 7:43 AM LINUX SOLARIS ADMINISTRATOR): Clinically stable at this time Assessment & [...] panel Assessment & Plan (11/15/2024 9:09 PM LINUX SOLARIS ADMINISTRATOR): Continue statin, optimize glycemic control. Assessment & [...] dialysis. Assessment & Plan (10/20/2022 10:17 AM LINUX SOLARIS ADMINISTRATOR): She is taking ezetimibe 10mg, no longer [...] bleed. Assessment & Plan (11/23/2019 5:29 PM LINUX SOLARIS ADMINISTRATOR): Continue home losartan - routine vitals Assessment & Plan (11/23/2019 5:26 PM LINUX SOLARIS ADMINISTRATOR): Continue home losartan - routine vitals Assessment [...] of chronic renal fail ureDiabetic peripheral neuropathy Treatment Medications No medications scheduled. Past Treatment and Therapy Plans Lifetime Dose Tracking * Chemical Lifetime Dose Automatic Entry Manual Entr y Fluoro Time 7.215 minutes 3.615 minutes 3.6 minutes Air kerma at the reference point (Ka,r) 138.74 mGy 1 10.74 mGy 28 mGy DLP 4,909 mGycm 4,909 mGycm 0 mGycm DAP 6.797 Gy-cm2 0 Gy-cm2 6.797 Gy-cm2 Resolved Problems Problem Noted Date Diagnosed Date Resolved Date Overdose of insulin, acciden frank or unintentional, initial encounter 11/22/2019 020 Assessment & Plan (11/23/2019 5:30 PM LINUX SOLARIS ADMINISTRATOR): Off insulin since Aug 2019 due to [...] PCP. Assessment & Plan (11/23/2019 5:25 PM LINUX SOLARIS ADMINISTRATOR): Off insulin since Aug 2019 due to [...] line 04/23, plan for outpatient dialysis at [facility] - 120mg IV Lasix BID->bumex - [...]
--- OUTSIDE RECORDS SUMMARY | 2025-07-28 16:08 | XMS_ITS | Patient Health Record ---
Author Organization 1 OF [facility] Address [address] [address] [place] [address] Care Team Providers Care Law Instructor Name Role Phone Jess Fuchsgerhardmurphy Primary Care Provider Un available Juanis Gutierrez Unavailable [phone] Allergies Allergen (clinical drug ingredient) Drug/Non Drug [...] stop date) Former Smoker NA - NA Social History Tobacco Use: Social Info Question Answer Notes Tobacco Control (Standard) Tobacco use: Former smoker How long has it been since you last smoked? Greater than 10 years Additional Details Category Social Info Options Details Miscellaneous: Exercise: Moderate Occupation: Retired Living with: family Drugs/Alcohol: Do you smoke marijuana? De nies Alcohol use: Denies current a lcohol use Recreational drugs Patient denie s recreational drug use Problems Problem Type SNOMED Code ICD Code Onset Dates Problem Status W/U Status Risk Notes Problem Neurologic disorder associated with type II diabetes mellitus (675363475) Type 2 diabetes mellitus with other diabetic neurological complication (E11.49) Active confirmed Problem Type 2 diabetes mellitus with peripheral angiopathy (843313844) Type 2 diabetes mellitus with diabetic peripheral angiopathy without gangrene, unspecified whether residential insulin use (E11.51) Active confirmed Plan Of Treatment No Information Insurance Providers Payer Name Payer Address Payer Phone Subscriber Number Group Number Insured Name Patient Relationship to Insured Coverage Start Date Coverage End Date Medicare [address] [place], [place] [id number] Fani Horton Self - patient is the insured [facility] [address] [place] [id number] Fani Horton Self - patient is the insured Medical (General) History Medical History History ICD Code Neuropathy of Feet Arthritis Diabetes Dialysis Gout kidney disease Surgical History Surgery Date(Month/Year) Graph in Left arm -ecessive bleeding 2022
--- OUTSIDE RECORDS SUMMARY | 2025-07-28 16:08 | XMS_ITS | Encounter Summary ---
Author Organization [facility] Address [address] [place] [address] Phone Care Team Providers Care Mutual Fund Sales Agent Name Role Phone Chelle Espinoza MD Unavailable Marguerite Fuchs MD Primary Care Provider Aft, Cesilia Allen MD PhD Unavailable Peter Joe MD Unavailable [phone] Catherine Duncan Unavailable [phone] Encounter Details Date Type Department Care Team (Late st Contact Info) Description 06/02/2025 Results Follow-Up [facility] Medicine Endocrinology Metabolism and Lipid [address] [facility] 13th [place] [address] [place] [phone] Catherine Duncan PA [address] [place] [address] Diabetes Mellitus Type 1 Evaluation, C-peptide Social History Tobacco Use Types Packs/Day Years [...] on file 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 Never 06/04/2025 8:12 AM Amelia Walden RN documented as of this encounter Plan of Treatment Not on file documented as of this encounter Goals Goal Patient Goal Type Associated Problems Recent Progress Patient-Stated? Author [facility] Chronic Pain Care Plan Chronic Care Management Improving( 9:21 AM CDT) Ana Paula Hoff RN Note: Problem: Chronic Pain Goals: 1. Minimize further functional decline 2. Maximize quality of life 3. Control pain Strategies: - Activity/exercise program recommendation - Conservative stepwise pain medicine strategy with multi-disciplinary approach - Recommend healthy lifestyle strategies and compensatory methods as needed documented as of this encounter Visit Diagnoses Not on filedocumented in this encounter Care Teams Mutual Fund Sales Agent Relationship Specialty Start Date End Date Marguerite Fuchs MD PCP - General Family Practice 10/27/20 Chelle Espinoza MD Referring Physician Endocrinology Diabetes & Metabolism 03/06/20 Aft, Cesilia Allen MD PhD Surgeon Surgical Oncology 11/18/21 [place] [id number] [id number] Consulting Physician Nephrology 05/12/24 Catherine Duncan PA [address] [facility], [address] [id number] Physician Associate Professor Of Surgery Physician Associate Professor Of Surgery 05/17/25 documented as of this encounter
--- OUTSIDE RECORDS SUMMARY | 2025-07-28 16:08 | XMS_ITS | Encounter Summary ---
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 [address] [place] [address] Consulting Physician Nephrology 05/12/24 Catherine Duncan PA [address] [facility], [facility] [address] [place] [address] Physician Paper Handler Physician Paper Handler 05/17/25 documented as of this encounter
--- OUTSIDE RECORDS SUMMARY | 2025-07-28 16:08 | XMS_ITS | Clinical Summary ---
Author Organization [facility] Address [address] [place] [id number] Care Team Providers Care Hearing Screener Name Role Phone Chelle Espinoza MD Unavailable Marguerite Fuchs MD Primary Care Provider Aft, Cesilia Allen MD PhD Unavailable Peter Joe MD Unavailable [phone] [facility] [phone] Allergies Active Allergy Reactions Criticality Noted Date [...] total) by mouth daily before breakfast Active pen needle, diabetic 31 gauge x 3/16 needleIndications:Ty pe 2 diabetes mellitus with complication, with long-term current use of insulin (HCC) Use with insulin injections 4 times daily 400 each 3 Active paricalcitoL (ZEMPLAR) 2 mcg capsuleIndications:H yperparathyroidism Secondary to Chronic Renal Failure Take 1 capsule (2 mcg total) by mouth 3 (three) times a week Take with dialysis Mon, Wed, Mon Active ferric citrate (Auryxia) 210 mg iron tabletIndications:Re nal Osteodystrophy with Hyperphosphatemia Take 1 tablet (210 mg total) by mouth daily before breakfast Active midodrine (PROAMATINE) 5 mg tabletIndications:Sy mptomatic [...] use of insulin ([facility]) Inject 44 units under the skin daily. 42 mL 2 025 Active glucagon (BAQSIMI) 3 mg/actuation spray,non-aerosolInd ications:Type 2 diabetes mellitus with complication, with long-term current use of insulin ([facility]) Administer 1 spray into one nostril as [...] use of insulin ([facility]) Inject 24-29 units with breakfast, 38-32 units with lunch and dinner and 5 units with snacks. Max TDD 110 units daily 99 mL 2 025 Active insulin travel freight and passenger agent cart,aut,G6/7,cntr (Omnipod 5 G6-G7 Intro Kt,Gen5,) cartridgeIndications :Type 2 diabetes mellitus with complication, with long-term current use of insulin ([facility]) To change POD every 3 days 1 each 025 Active insulin pump cart,auto,BT,G6/7 (Omnipod 5 G6-G7 Pods, Gen 5,) cartridgeIndications :Type 2 diabetes mellitus with complication, with long-term current use of insulin ([facility]) To change POD every 3 days 10 [...] use of insulin ([facility]),Class 3 severe obesity due to excess calories [...] use of insulin ([facility]) Inject 0.5 mg under the skin once [...] 02/10/2021 Assessment & Plan (11/11/2021 12:12 PM ERP MANAGER): Pfizer vaccine 10/09/2021, 03/03/2021, 02/10/2021 Abnormal findings on diagnostic imaging of latesha t 11/09/2021 Sacroiliitis (CMS/HCC) - Bilateral 05/11/2021 Primary osteoarthritis of both knees 04/20/2021 Chronic low back pain 03/03/2021 Pneumonia due to COVID-19 virus 11/14/2020 COVID-19 11/14/2020 Combined 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 Not visually significant, recommend UV protection. Monitor. Assessment & Plan (10/26/2023 9:15 AM ERP MANAGER): Defer cataract surgery until signs and symptoms indicate. Pt was educated on the diagnosis. Recommend daily UV eye protection. Assessment & Plan (10/27/2020 9:01 AM ERP MANAGER): Not yet Visually significant; defer cataract [...] rescue Assessment & Plan (11/23/2019 5:30 PM ERP MANAGER): Due to insulin overdose (accidental) - continue to monitor as above and treat as needed per hypoglycemia protocol Assessment & Plan (11/22/2019 10:08 PM ERP MANAGER): Due to insulin overdose (accidental) - continue to monitor as above and treat as needed per hypoglycemia protocol Cellulitis of leg, right 11/22/2019 Assessment & Plan (11/23/2019 5:30 PM ERP MANAGER): Was seen by dermatology on 11/08/2019 at which time culture was performed. Patient has culture results which are positive for proteus mirabilis sensitive to ampicillin. She was prescribed ampicillin 500mg BID for 30 days per patient. - Continue ampicillin 500mg BID while inpatient Assessment & Plan (11/22/2019 10:49 PM ERP MANAGER): Was seen by dermatology on 11/08/2019 [...] be further evaluated by US Pt has resident doctor and has appointment coming up This finding was discussed and she will follow up with them Diabetes mellitus 07/10/2019 Assessment & Plan (08/13/2024 12:40 PM CDT): - Diabetes is complicated by neuropathy, end-stage renal disease on hemodialysis, hypertension, hyperlipidemia and obesity. 90-day Dexcom GMI 7.6%, above goal. Lab Results Component Value Date HGBA1C 6.8 02/22/2022 Per [place] [employer], goal A1c is less 7% [...] etc. Assessment & Plan (08/26/2019 7:42 AM ERP MANAGER): No longer requires insulin therapy now [...] a catheter for HD in [facility]. Initially managed with eliquis but transitioned [...] 06/26/2019 Assessment & Plan (11/23/2019 5:30 PM ERP MANAGER): Continue allopurinol Assessment & Plan (11/22/2019 10:03 PM ERP MANAGER): Continue allopurinol Assessment & Plan (07/16/2019 [...] safety. Assessment & Plan (11/15/2024 9:09 PM ERP MANAGER): Managed by renal, need to minimize [...] hypoglycemia. Assessment & Plan (10/20/2022 10:20 AM ERP MANAGER): Need to minimize risk of hypoglycemia. [...] hypoglycemia Assessment & Plan (11/23/2019 5:30 PM ERP MANAGER): HD MWF Access: Last HD: 11/20 (mon). She had rescheduled her outpatient HD for today (Thursday 11/23 at 10:30am) - consult renal given elevating blood sugars, will need regimen going forward with current infection. Assessment & Plan (11/23/2019 5:20 PM ERP MANAGER): HD MWF Access: Last HD: 11/20 (wed). She had rescheduled her outpatient HD for today (Thursday 11/23 at 10:30am) - consult renal given elevating blood sugars, will need regimen going forward with current infection. Assessment & Plan (08/26/2019 7:43 AM ERP MANAGER): No longer requires insulin therapy. Assessment [...] selevamer. Dialysis per renal. On . Next due Monday. AVF site looks ok. Assessment & [...] bilateral knee pain. Patient discharge with home PT/OT/senior living which has not been initiated. Continue lidocaine [...] bilateral knee pain. Patient discharge with home PT/OT/senior living which has not been initiated. Continue lidocaine [...] bilateral knee pain. Patient discharge with home PT/OT/senior living which has not been initiated. Continue lidocaine patch bilateral knees, oral prn tylenol and diclofenac dose increased to 4gm with improvement. Encouraged patient to use medications to improve mobility with therapy and agreeable. PT/OT for debilitation. Await SNF, insurance approval still pending. Assessment & Plan (07/25/2019 11:17 AM CDT): Recent admission 07/10-07/19 for OA bilateral knee pain. Patient discharge with home PT/OT/senior living which has not been initiated. Continue lidocaine patch bilateral knees, oral prn tylenol and diclofenac dose increased to 4gm with improvement. Encouraged patient to use medications to improve mobility with therapy and agreeable. PT/OT for debilitation. Await SNF Assessment & Plan (07/24/2019 2:04 PM CDT): Recent admission 07/10-07/19 for bilateral knee pain. Patient discharge with home PT/OT/senior living which has not been initiated. -continue lidocaine patch bilateral knees -continue prn tylenol and diclofenac PT/OT for debilitation. Assessment & Plan (07/23/2019 1:55 PM CDT): Recent admission 07/10-07/19 for bilateral knee pain. Patient discharge with home PT/OT/senior living which has not been initiated. -continue lidocaine patch bilateral knees -continue prn tylenol and diclofenac Assessment & Plan (07/22/2019 6:15 PM CDT): Recent admission 07/10-07/19 for bilateral knee pain. Patient discharge with home PT/OT/senior living which has not been initiated. -continue lidocaine [...] 01/09/2019 Assessment & Plan (11/23/2019 5:30 PM ERP MANAGER): Continue phos binder - phos 4.9, prior to dialysis. - patient reports previously low and discontinued sevelamer Assessment & Plan (11/23/2019 5:23 PM ERP MANAGER): Continue phos binder - phos 4.9, prior to dialysis. - patient reports previously low and discontinued sevelamer Anemia of chronic renal failure 06/01/2018 Assessment & Plan (11/23/2019 5:29 PM ERP MANAGER): Usually received darbopoietin on Fridays with HD. - CBC stable. Assessment & Plan (11/23/2019 5:18 PM ERP MANAGER): Usually received darbopoietin on Fridays with [...] Component Value Date HGBA1C 6.8 02/22/2022 Per [place] [employer], goal A1c is less 7% [...] etc. Assessment & Plan (11/15/2024 9:10 PM ERP MANAGER): Overall glycemic control is within a reasonable range of control and safety. A1c 6.6% Assessment & Plan (05/12/2024 2:26 PM CDT): Glucoses a little high, but need to minimize risk of hypoglycemia. Assessment & Plan (02/08/2024 8:39 PM CDT): Glucoses very high after meals. Needs adjustments in basal and mealtime insulins. Assessment & Plan (10/26/2023 9:15 AM ERP MANAGER): Pt ed. Stressed BG control (HbA1C<7) [...] diabetes. Assessment & Plan (10/22/2022 12:48 PM ERP MANAGER): Awaiting Hemoglobin A1c result; Dexcom report [...] and she has also met with a aquatics director. Assessment & Plan (02/23/2022 10:29 AM CDT): Hemoglobin A1c decreased to 6.8%, with minimal hypoglycemia. Continue using Dexcom for continuous monitoring and low BG alarms. She is taking Lantus PM daily, consistently. She is taking Humalog with meals and using sliding scale. She plans to continue making diet changes to help lower BG. Assessment & Plan (11/18/2021 12:55 PM ERP MANAGER): Needs adjustments in insulins, particularly with [...] hypoglycemia. Assessment & Plan (10/27/2020 9:01 AM ERP MANAGER): No retinopath; pt ed BG control [...] today Assessment & Plan (11/15/2024 9:09 PM ERP MANAGER): Continue supplement, monitored by renal Assessment [...] renal Assessment & Plan (11/18/2021 12:52 PM ERP MANAGER): Continue supplement, monitored by renal Assessment & Plan (03/17/2021 2:38 PM CDT): Continue supplement, monitored by renal Assessment & Plan (03/06/2020 10:42 AM CDT): Continue supplement, monitored by renal Assessment & Plan (06/15/2018 7:52 AM CDT): On daily supplement, chronic renal insufficiency Pes planus 10/18/2012 JASON on CPAP 10/18/2012 Assessment & Plan (11/23/2019 5:30 PM ERP MANAGER): Continue CPAP with sleep. - CPAP ordered Assessment & Plan (11/22/2019 10:09 PM ERP MANAGER): Continue CPAP with sleep. - CPAP [...] mask/CPAP. Sleeping well. Defer to PCP for terminal operator weight management & goal setting for weight loss, with morbid obesity (BMI 60) playing a role. Assessment & Plan (07/27/2019 11:17 AM CDT): JASON w/ cpap at night, setting 11cmHg. Compliant with nightly mask/CPAP. Sleeping well. Defer to PCP for terminal operator weight management, with morbid obesity (BMI 60) playing a role. Assessment & Plan (07/26/2019 11:43 AM CDT): JASON w/ cpap at night, setting 11cmHg. Compliant with nightly mask. Sleeping well. Defer to PCP for usp weight management, with morbid obesity (BMI 60) playing a role. Assessment & Plan (07/25/2019 11:19 AM CDT): JASON w/ cpap at night, setting 11cmHg. Compliant with nightly mask. Defer to PCP for usp weight management, with morbid obesity (BMI 60) [...] QHS Assessment & Plan (11/23/2019 5:30 PM ERP MANAGER): Continue Cymbalta and gabapentin Assessment & Plan (11/22/2019 10:12 PM ERP MANAGER): Continue Cymbalta and gabapentin Assessment & Plan (08/26/2019 7:43 AM ERP MANAGER): Clinically stable at this time Assessment [...] panel Assessment & Plan (11/15/2024 9:09 PM ERP MANAGER): Continue statin, optimize glycemic control. Assessment [...] dialysis. Assessment & Plan (10/20/2022 10:17 AM ERP MANAGER): She is taking ezetimibe 10mg, no [...] bleed. Assessment & Plan (11/23/2019 5:29 PM ERP MANAGER): Continue home losartan - routine vitals Assessment & Plan (11/23/2019 5:26 PM ERP MANAGER): Continue home losartan - routine vitals [...] 020 Assessment & Plan (11/23/2019 5:30 PM ERP MANAGER): Off insulin since Aug 2019 due [...] PCP. Assessment & Plan (11/23/2019 5:25 PM ERP MANAGER): Off insulin since Aug 2019 due [...] plan for outpatient dialysis at [facility] - 120mg IV Lasix BID->bumex - [...] Encounters Date Type Department Care Team Description 07/25/2025 10:00 AM CDT Clinical Support [facility] Medicine Endocrinology Metabolism and Lipid [address] [facility] [address]th [place] [address] [place] [address] Arely Arias, ELIZABETH Type 2 diabetes mellitus with complication, with long-term current use of insulin (HCC) (Primary Dx) 07/24/2025 Telephone [facility] Endocrinology Metabolism and Lipid [address] [facility] 13th [place] [address] [place] [address] 07/22/2025 Orders Only [facility] Medicine Endocrinology Metabolism and Lipid [address] [facility] Medicine 13th [place] [address] [place] [address] Chio Gomez RMA Type 2 diabetes mellitus with complication, with long-term current use of insulin (HCC) 07/14/2025 9:00 AM CDT - 07/14/2025 11:59 PM CDT Hospital Encounter [facility] at the [facility] Advanced Medicine [address] [facility] [address] [place] [address] Jane Franklin NP Diabetic peripheral neuropathy (HCC) (Primary Dx); Chronic pain of both knees; Chronic low back pain without sciatica, unspecified back pain laterality Discharge Disposition: Discharge to home or self care 07/07/2025 Telephone [facility] Medicine Endocrinology Metabolism and Lipid [address] [facility] 13th [place] [address] [place] [address] Maria Dolores Tabares RN DONNA tandem 06/04/2025 7:51 AM CDT - 06/04/2025 11:59 PM CDT Hospital Encounter [facility] at the [place] [id number] [facility] [address] [place] [address] Kait, [facility] Diabetic peripheral neuropathy (HCC) (Primary Dx) Discharge Disposition: Discharge to home or self care 06/04/2025 Orders Only [facility] Medicine Endocrinology Metabolism and Lipid [address] [facility] [address] [place] [address] [place] [address] Chio Gomez RMA Type 2 diabetes mellitus with complication, with long-term current use of insulin (HCC) (Primary Dx) 06/04/2025 Orders Only [facility] Endocrinology Metabolism and Lipid [address] [facility] 13[address] [place] [address] [place] [address] Catherine Duncan PA Type 2 diabetes mellitus with complication, with long-term current use of insulin (HCC) (Primary Dx) 06/03/2025 Orders Only [facility] at the [facility] [address] [facility] [address] [place] [address] Jane Franklin NP 06/02/2025 Results Follow-Up [facility] Medicine Endocrinology Metabolism and Lipid [address] [facility] 13[address] [place] [address] [place] [address] Catherine Duncan PA Diabetes Mellitus Type 1 Evaluation, C-peptide 05/30/2025 Telephone [facility] Endocrinology Metabolism and Lipid [address] [facility] 5th [place] [address] [place] [address] Maria Dolores Tabares RN Lab Results 05/30/2025 Telephone [facility] at the [facility] [address] [facility] [address] [place] [address] Jane Franklin NP PMC Preprocedure 05/28/2025 Telephone [facility] Endocrinology Metabolism and Lipid [address] [facility] 5th [place] [address] [place] [address] Maria Dolores Tabares RN CMN tandem 05/26/2025 1:31 PM CDT - 05/26/2025 11:59 PM CDT Hospital Encounter [facility] at the [facility] [address] [facility] [address] [place] [address] Jane Franklin NP Diabetic peripheral neuropathy (HCC) (Primary Dx); Type 2 diabetes mellitus with complication, with long-term current use of insulin (HCC); Sacroiliitis (CMS/HCC) - Bilateral; Spondylosis of lumbar region without myelopathy or radiculopathy Discharge Disposition: Discharge to home or self care 05/26/2025 8:14 AM CDT - 05/26/2025 11:59 PM CDT Hospital Encounter [facility] Breast Imaging [facility] [address] [place] [address] Screening mammogram, encounter for Discharge Disposition: Discharge to home or self care 05/16/2025 9:00 AM CDT Clinical Support [facility] Endocrinology Metabolism and Lipid [address] [facility] [address]th [place] [address] [place] [address] Shelia Robbins RN Type 2 diabetes mellitus with complication, with long-term current use of insulin (HCC) (Primary Dx); Corns and callosities 05/16/2025 8:00 AM CDT Clinical Support [facility] Endocrinology Metabolism and Lipid [address] [facility] 13th [place] [address] [place] [address] Type 2 diabetes mellitus with complication, with long-term current use of insulin (HCC) (Primary Dx) 05/16/2025 Orders Only [facility] Medicine Endocrinology Metabolism and Lipid [address] [facility] [address] [place] [address] [place] [address] Catherine Duncan PA Type 2 diabetes mellitus with complication, with long-term current use of insulin (HCC) (Primary Dx) 05/16/2025 Telephone [facility] Medicine Endocrinology Metabolism and Lipid [address] [facility] 5th [place] [address] [place] [id number] Maria Dolores Tabares RN 05/15/2025 12:00 PM CDT Telemedicine [facility] Endocrinology Metabolism and Lipid [address] [facility] [address]th [place] [address] [place] [address] Chelle Espinoza MD Type 2 diabetes mellitus with complication, with long-term current use of insulin (HCC) (Primary Dx); Mixed hyperlipidemia; ESRD (end stage renal disease) on dialysis (HCC); Vitamin D deficiency 05/15/2025 Telephone [facility] Medicine Endocrinology Metabolism and Lipid [address] [place] [address] [place] [id number] Maria Dolores Tabares RN Prior Auth; [email or web address] 05/15/2025 Telephone [facility] Endocrinology Metabolism and Lipid [address] [place] [address] [place] [address] Maria Dolores Tabares RN pain managment referral an CDE appt 05/02/2025 Telephone [facility] Medicine Surgery [address] [facility] [address] [place] [address] Pj Toure MD 04/30/2025 Orders Only [facility] Medicine Endocrinology Metabolism and Lipid [address] [place] [address] [place] [id number] Marissa Castro MD 04/30/2025 Telephone [facility] Endocrinology Metabolism and Lipid [address] [place] [address] [place] [address] Deal, Maria Dolores, dental laboratory assistant results [place] from Last 3 Months Immunizations Immunization Administration Dates Next Due Influenza, Quadrivalent, Spl it, Preservative Free, Intramuscular 08/08/2019 Influenza, Trivalent, IM (MDV) 11/14/2015,2012 Influenza, Trivalent, Preser vative Free, Intramuscular 07/23/2012 Influenza, Unspecified 07/31/2023,07/31/2020 Darrius (J&J) SARS-CoV-2 Vaccination 08/01/2023 MMR 09/14/2015,08/14/2015 Pfizer SARS-CoV-2 Monovalent Vaccination (12+ Yrs) PURPLE 10/09/2021,03/03/2021,02/10/2021 Pneumococcal Polysaccharide PPV23 10/18/2020,10/2011,11/19/2010 Tdap 08/14/2015 Surgical History Surgery Date Site/Laterality Comments MA DELIVERY ONLY 10/23/1988 - 10/22/1989 Section - (Added by TW Conv) MA CHOLECYSTECTOMY 10/23/2013 - 10/22/2014 Cholecystectomy - 1993 (Added by TW Conv) COLONOSCOPY 10/23/2019 - 10/22/2020 Complete Colonoscopy - (Added by TW Conv) PARTIAL NEPHRECTOMY 10/23/2011 - 10/22/2012 Left Kidney Surgery Laparoscopic Partial Nephrectomy - left 02/14/2012 (Added by TW Conv) MA UNLISTED PROCEDURE DENTOALVEOLAR STRUCTURES Oral Surgery Tooth Extraction - (Added by TW Conv) TUNNELED LINE PLACEMENT > 5 YEARS 04/23/2019 N/A MA REPAIR FIRST ABDOMINAL WALL HERNIA 10/23/2015 - 10/22/2016 Ventral Hernia Repair - (Added by TW Conv) BREAST BIOPSY 10/23/2015 - 10/22/2016 UPPER GASTROINTESTINAL ENDOSCOPY 10/23/2016 - 10/22/2017 REMOVE TUNNELED LINE 07/18/2019 Left IR INJECTION ARTHROGRAM SI JOINT LEFT INCLUDES IMAGING GUIDANCE 07/21/2022 Left AV FISTULA PLACEMENT 10/23/2018 - 10/22/2019 FISTULA REPAIR 08/30/2024 Left see chart, per pt. Fistulogram Medical History Medical History Date Comments Multiparity [...] Obesity Renal disorder Cancer (HCC) Diabetes mellitus Covid-19 10/2020 Low oxygen satur ation, chills, aches and cold intolerance. Hospitalized 3 days Low back pain Upper back pain Joint pain Anemia 2016 Family History Medical History Relation Name Comments Gout Brother 1 Heart disease Brother 1 Hypertension Brother 1 Kidney disease Brother 1 Mitral valve prolapse Brother 1 Diabetes Brother 2 Steve Young Jr Heart attack Brother 2 Steve Young Jr Heart disease Brother 2 Steve Young Jr Hypertension Brother 2 Steve Young Jr Kidney disease Brother 2 Steve Young Jr Arthritis Father Steve Young Sr Diabetes Father Steve Young Sr Heart attack Father Steve Young Sr Heart disease Father Steve Young Sr Hypertension Father Steve Young Sr Alzheimer's disease Maternal Grandfather Yevgeniy Dumont ll Cancer Maternal Grandfather Yevgeniy Mcgee Anesthesia problems Mother Rosalia Youmg allergy to the dines - betadine/iodine Arthritis Mother Rosalia Youmg Asthma Mother Rosalia Youmg Cancer Mother Rosalia Youmg Gout Mother Rosalia Youmg Heart disease Mother Rosalia Youmg Hypertension Mother Rosalia Youmg Pancreatic cancer Mother Rosalia Youmg Adenocarci noma Of The Pancreas - (Added [...] Paternal Grandmother Relation Name Status Comments Brother 1 Brother 2 Steve Perez Jr Alive Father Steve Perez Sr Maternal Grandfather Yevgeniy Mcgee Alive Mother Rosalia Rodriguez Mother's Sister Other 1 Other 2 Other 3 Other 4 Other 5 Other 6 Other 7 Paternal Grandmother Social History Tobacco Use Types Packs/Day Years Used Date Smoking Tobacco: Former Cigarettes 0.3 10 1 8 1987 Smokeless Tobacco: Never Tobacco Cessation:Counseling Given: [...] on file Legal Sex Female 3:06 AM ERP MANAGER Gender Identity Not on file Sexual [...] kg (318 lb 2 oz) 07/14/2025 9:12 A M CDT Height 152.4 cm (5') 07/14/2025 9:12 AM CDT Body Mass Index 62.13 07/14/2025 9:12 AM CDT Plan of Treatment Health Maintenance [...] Well Visit 65+ 2023 Covid-19 Vaccine (5 - 2024-2 6 season) 2025 08/01/2023, 10/09/2021, 03/03/2021, Additional history exists Influenza [...] Additional history exists Hepatitis B Screening Completed 02/03/2023, 021 Goals Goal Patient Goal Type Associated Problems Recent Progress Patient-Stated? Author CCM Chronic Pain Care Plan Chronic Care Management Improving( 9:21 AM CDT) Ana Paula Hoff, RN Note: Problem: Chronic Pain Goals: 1. Minimize further functional decline 2. Maximize quality of life 3. Control pain Strategies: - Activity/exercise program recommendation - Conservative stepwise pain medicine strategy with multi-disciplinary approach - Recommend healthy lifestyle strategies and compensatory methods as needed Medical Devices Implanted Type Area Branch Credit Counselor Device Identifier Shelf Expiration Date Model / Serial / Lot [employer] [id number] 4-7mm 45cm 10cm Removable Ring Line Standard Supervisor Mirror [employer] Graft - [id number] - [id number] Implanted:Qty: 1 on 05/28/2019 by Pj Toure MD at [facility] Other - see comments Left: Arm [employer] [id number] 03/31/2024 [id number] / [id number] / Description:Left AV Graft [employer] Viabahn 7mm 5cm 120cm Delivery System Superficial Femoral Artery [id number] - [id number] - [id number] Implanted:Qty: 1 on 08/30/2024 by Pj Toure MD at [facility] Stent Left: Morales Alcaraz [employer] [id number] 03/26/2027 [id number] / [id number] / Procedures Procedure Name Priority Date/Time Associated [...] insulin (HCC) EGFR STAT 08/30/2021 9:53 PM ERP MANAGER HEPATITIS PANEL, ACUTE STAT 11/14/2020 10:19 AM ERP MANAGER COLONOSCOPY 06/04/2020 4:03 PM CDT LIPID PANEL STAT 06/03/2020 2:56 AM CDT from Last 3 Months or Most Recently Relevant to Health Maintenance Results * Glucose, random (06/09/2025 8:51 AM CDT) Blood us Catherine SEVERINO LAB BLOOD ORDERABLE S Final Result EXTERNAL LAB * C-peptide (06/06/2025 11:25 AM CDT) Blood Catherine Cain [facility] LAB BLOOD ORDERABLE S Final Result EXTERNAL LAB * Diabetes Mellitus Type 1 Evaluation (06/02/2025 4:16 PM CDT) Blood Catherine Plasencia [facility] LAB BLOOD ORDERABLE S Final Result Performing Organization Address [facility]/ZIP Co de Phone Number EXTERNAL LAB * [...] Result * (ABNORMAL) eGFR (08/30/2021 9:53 PM ERP MANAGER) Pathologist [facility] eGFR 7(L) 90 - 130 mL/min/1.7 3 m2 [facility] Comment: Interpretive Data Reference Interval [...] last reviewed 2020 Blood 08/30/2021 9:53 PM ERP MANAGER 08/31/2021 1:30 AM ERP MANAGER us Slava Lowe MD LAB BLOOD ORDERABLES Karlee mckeon Result [facility] [address] Department [place] [address] * Hepatitis panel, acute (11/14/2020 10:19 AM ERP MANAGER) Pathologist [facility] Hep A IgM Nonreactive Nonreactive [facility] Comment: Interpretive Data: If Hep A IgM Ab is reported as Equivocal, a new sample should be drawn in two weeks for testing. Current interpretive data was last revised on 20. Hep B core IgM Nonreactive Nonreactive [facility] Comment: Interpretive Data If HepB Core IgM Ab is reported as Equivocal, a new sample should be drawn in two weeks for testing. Current interpretive data was last revised on 20. Hep C Ab Nonreactive Nonreactive [facility] Comment: Interpretive Data Nonreactive: Antibodies [...] revised on 2020. HepBsAg Nonreactive Nonreactive [facility] Blood specimen (specimen) 11/14/2020 10:19 AM ERP MANAGER 11/14/2020 10:19 AM ERP MANAGER us Pierce Clark MD LAB MICROBIOLOGY - GENERAL ORDERABLES Final Result [facility] [address] Department [place] [address] * COLONOSCOPY (06/04/2020 4:03 PM CDT) Anatomical Region Laterality Modality Other Narrative Procedure Note Cruzito Benitez MD - 06/04/2020 4:03 PM CDT [facility] Patient Name: Fani Horton Procedure Date: 06/04/2020 4:03 PM Date of : 1960 Admit Type: Inpatient Age: 60 Gender: Female Attending MD: Cruzito Simms M.D. Room: [facility] OR POD 5 ROOM 224 Note Status: [...] The scope was passed under direct vision.The [id number] Endoscope was introduced throughthe anus and advanced to the cecum, identified by appendiceal orifice and ileocecal valve. The colonoscopy was performed without difficulty. The patient tolerated the procedure well. The quality of the bowel preparation was evaluated using the BBPS ([place] Bowel Preparation Scale) with scores of:Right Colon [...] On: 06/04/2020 4:03 PM Recognized by the [place] [employer] for promoting quality in endoscopy Cruzito Simms MD ENDOSCOPY PROCEDURES Final Result * Lipid panel (06/03/2020 2:56 AM CDT) Cholesterol 163 30 - 199 mg/dL [facility] Comment: Interpretive Data Ages < or = [...] on 2018. Triglycerides 125 <=149 mg/dL [facility] Comment: Interpretive Data Ages < [...] on 2018. HDL 67 >=40 mg/dL [facility] Comment: Interpretive Data Ages < [...] 2018. LDL, calculated 71 <=129 mg/dL [facility] Comment: Interpretive Data Ages < [...] on 2018. Non-HDL Cholesterol 96 mg/dL [facility] Comment: Interpretive Data Ages < [...] BLOOD ORDERABLES Final Result [facility] [address] [place] [address] from Last 3 Months or Most Recently Relevant to Health Maintenance Insurance MEDICARE [facility] BL CHOICE [place]F PPO [place] MEDICARE [facility] MEDICARE SUPPLEMENT INS[place] [facility] Advance Directives For more information, please contact: [phone] Documents on File Type Date Recorded Patient Marketing Account Manager Expl anation ADVANCE DIRECTIVE 05/31/2019 5:52 AM POWER OF TIMBER SELECTOR-MEDICAL ADVANCE DIRECTIVE 04/30/2019 7:33 PM POWER OF TIMBER SELECTOR-MEDICAL ADVANCE DIRECTIVE 04/24/2019 2:54 PM POWER OF TIMBER SELECTOR-MEDICAL * Full Code (Latest Code Status on [...] 6:22 PM 06/04/2020 2:56 PM Care Teams Hearing Screener Relationship Specialty Start Date End Date Marguerite Fuchs MD PCP - General Family Practice 10/27/20 Chelle Espinoza MD Referring Physician Endocrinology Diabetes & Metabolism 03/06/20 Aft, Cesilia Allen MD PhD Surgeon Surgical Oncology 11/18/21 [place] [address] [address] Consulting Physician Nephrology 05/12/24 Catherine Duncan PA [address] [facility], [address] [address] Physician Strong Nitric Operator Physician Strong Nitric Operator 05/17/25
--- OUTSIDE RECORDS SUMMARY | 2025-07-28 16:08 | XMS_ITS | Encounter Summary ---
Author Organization [facility] Address [address] [place] [address] Phone Care Team Providers Care Hand Polisher Name Role Phone Josephine Acosta MD Primary Care Provider Chelle Espinoza MD Unavailable [phone] Sue Cummins RN Unavailable [phone] Marguerite Fuchs MD Primary Care Provider Rehg, Nickie Ba BUILDINGS AND GROUNDS DIRECTOR Unavailable Brennan Wesley MD Unavailable Aft, Cesilia Allen MD PhD Unavailable [phone] Peter Joe MD Unavailable [phone] [facility] Unavailable [phone] Encounter Details Date Type Department Care Team [...] on file Legal Sex Female 3:06 AM ASSOCIATE BUSINESS ANALYST Gender Identity Not on file Sexual Orientation [...] COVID: Suspected 11/09/2020 11/09/2020 11/09/2020 9:53 PM ASSOCIATE BUSINESS ANALYST COVID19 11/09/2020 11/09/2020 12/01/2020 3:05 AM ASSOCIATE BUSINESS ANALYST COVID: Recovered Comment:Added based on recent COVID infection. 12/01/2020 12/02/2020 03/31/2021 3:05 AM C DT documented as of this encounter Care Teams Hand Polisher Relationship Specialty Start Date End Date Josephine Acosta MD PCP - General Family Medicine 07/02/19 10/26/20 Marguerite Fuchs MD [address] [address] PCP - General Family Practice 10/27/20 Chelle Espinoza MD Referring Physician Endocrinology Diabetes & Metabolism 03/06/20 Sue Cummins, RN [address] [place] [address] SHOP Outpatient Marine Steward 06/05/20 07/06/20 Nickie Tidwell NP [address] [place] [address] Nurse Practitioner Nurse Practitioner 03/16/21 02/07/24 Brennan Wesley MD [address] [place] [address] Referring Physician Nephrology 03/16/21 05/11/24 Aft, Cesilia Allen MD PhD [address] [facility] [address] [place] [address] Surgeon Surgical Oncology 11/18/21 [place] [address] [facility] [address] [place] [address] Consulting Physician Nephrology 05/12/24 Catherine Duncan PA [address] [facility] DIV IM ENDOCRINOLOGY, [facility] [address] [place] [address] Physician Construction Site Manager Physician Construction Site Manager 05/17/25 documented as of this encounter
[2025-07-28 18:36] LABS: Hematocrit 31.4 % (37.0-47.0); Hemoglobin 9.6 g/dL (12.0-15.0)
[2025-07-28 18:45] LABS: INR 1.0; Prothrombin Time 12.9 Seconds (11.1-14.7)
[2025-07-28 18:46] LABS: Partial Thromboplastin Time 35.0 Seconds (22.3-36.8)
== END 2025-07-28 15:40 | disposition home or self-care (01) ==
LOC: ANHGOSHLAB 15:40
PROVIDERS: PCP Family Medicine; Visit Provider Anesthesiology
DX: N18.6 End stage renal disease (principal); D64.9 Anemia, unspecified
CPT/HCPCS: 36415; 85014; 85018; 85610; 85730

== ENCOUNTER 2025-07-30 00:57 | Day surgery (SDC) | payer MEDICARE, SELFPAY ==
--- OUTSIDE RECORDS SUMMARY | 2010-05-21 07:30 | XMS_ITS | Continuity of Care Document ---
Author Organization [facility] Address [address] [facility] [address] [place] [address] Phone Care Team Providers Care Toucher Up Name Role Phone Francois Stout Unavailable Unavailable [...] Diagnoses Date Provider Providers Copied on Encounter [facility], [id number] [place] [address] [address], [place], [place], [id number], [place] tel:[phone] [facility] No Information 0201 0 Argelia Parrish. [address] [address], [place], [address], [place]. tel:[phone] Referring Provider: Francois conner 24[address] [facility] 102, [place], [address]. tel:[phone] [facility], [address], [place], [place], [id number], [place] tel:[phone] [facility] No Information Gabe-2 0-201 0 Krishnasamy Francois. [address] [facility] [address], [place], [address], [place]. tel:[phone] Office/outpat ient Visit, Est [facility] Eye [facility], [address], [place], [place], [id number], [place] tel:[phone] [facility] No Information Dec-3 0-201 0 Krishnasamy Francois. [address] [facility] [address], [place], [place], [facility], [place]. tel:[phone] [facility], [address], [place], [place], [id number], [place] tel:[phone] [facility] No Information 3 1-200 9 Krishnasamy Francois. [address] [place] [address], [facility], [place]. tel:[phone] Referring Provider: Francois conner, [address] [place], [place] [address] [address], [facility]. tel:[phone] [facility], [address], [place], [place], [id number], [place] tel:[phone] [facility] [place] No Information Apr-2 8-200 9 Krishnasamy Francois. [address] [place] [address], [facility], [place]. tel:[phone] [facility], [address], [place], [place], [id number], [place] tel:[phone] [facility] [place] No Information Apr-2 2-200 8 Krishnasamy Francois. [address] [place], [place] [address] [address], [facility], [place]. tel:[phone] [facility], [address] [place] [address], [place], [place], [id number], [place] tel:[phone] [facility] No Information Sep- 2-200 6 Mabry AMI Pratt. [address] [facility] , [address], [place], [address], . tel:[phone] Referring Provider: Terence Boland, [address] [facility] [address], [place], [address]. tel:[phone] Family History Family Member Type Diagnosis Age At Onset No Information Payers Payer name Insurance type Covered green party ID Authoriza tion(s) No Information Social History [...]
--- OUTSIDE RECORDS SUMMARY | 2024-04-02 04:00 | XMS_ITS ---
Author Organization 1 OF Jose Ramon [facility] Address [address] [place] [address] Care Team Providers Care Accounting Reconciliation Clerk Name Role Phone Marguerite Fuchs Primary Care Provider Un available Gutierrez Olivarez Unavailable [phone] REASON FOR VISIT DFC (Diabetic foot care) Encounters Encounter Location Date Provider Diagnosis [facility] [address] [facility] [address] [place] [address] 04/02/2024 Gutierrez Olivarez Plan Of Treatment No Information Progress Notes * Fani HORTON MDOB: (65 yo F)Acc No.[id number]:04/02/2024 Progress Note Patient: Kya murdock Fani Moya Provider: Lupe Olivarez DPM :1960 A ge:64 Y S ex:Female Date:04/02/2024 Address:[address] [place], [place] [id number] Pcp:Marguerite Fuchs Subjective: * Chief Complaints: * D FC (Diabetic foot care) * Electronic signature of Gutierrez Olivarez DPM on 07/30/2025 at 01:07 AM CDT Sign off status: Pending * Provider: Lupe Olivarez DPM Date: 0 04/02/2024 Generated for Printi ng/Faxing/eTransmitting on: 1 01:07 AM CDT
--- OUTSIDE RECORDS SUMMARY | 2025-05-14 12:26 | XMS_ITS | Continuity of Care Document ---
Author Organization [facility] Address [address] [place] [id number] Phone Care Team Providers Care Box Maker Wood Name Role Phone Arnaldo Dash MD Unavailable Unavailable Allergies, Adverse Reactions, Alerts Substance Reaction Status Criticality rofecoxib Nausea / Vomiting Active No Informa tion metformin Nausea / Vomiting Active No Informa tion ATORVASTATIN CALCIUM Active No Info rmation glipizide Nausea / Vomiting Active No Informa tion gabapentin Nausea / Vomiting Active No Informa tion benazepril Anaphylaxis Active No Information PAULINA Inhibitors Anaphylaxis Active No Informatio n Medications Medication Instructions Dosage Effective Dates (start - stop) Status Comments ezetimibe 10 mg tablet - Act sinan allopurinol 100 mg tablet - Active betamethasone dipropionate 0.05 % topical cream - Active midodrine 5 mg tablet - Acti ve pantoprazole 20 mg tablet,delayed release - Active Toujeo SoloStar U-300 Insulin 300 unit/mL (1.5 mL) subcutaneous pen - Active pantoprazole 40 mg tablet,delayed release - Active pregabalin 50 mg capsule - A ctive [place] KwikPen U-100 Insulin 100 unit/mL subcutaneous - Active Procedures Procedure Date CONTRAST, 300/ML, PER ML MOD SED BY OR SUP BY PHYSICIAN INTRO CATH DIALYSIS CIRCUIT Radiation Exposure Documented To Be Coded Intro cath dialysis circuit Mod sed same phys/qhp 5/>yrs Intro cath dialysis circuit Mod sed same phys/qhp 5/>yrs Advance Directives Directive Yes / No Effective Date File Name No Information Encounters Encounter Description Practice Location Reason(s) For Visit Diagnoses Date Provider Providers Copied on Encounter [facility], [address], [place], [id number], tel:[phone] [facility] No Information 5 Hardy Mcintosh. [address] [facility], [address] [facility], [place], [place], [id number] , [place]. tel:[phone] [facility], [address] [place] [address], [id number], tel:[phone] [facility] Compression of VeinEnd stage renal disease 5 Hardy Mcintosh. [address] [facility], [place] [address], [place], [place], [id number] , [place]. tel:[phone] Referring Provider: David Gong, [address] [place] [address] [address], [place], [address]. tel:[phone] [facility], [address] [place] [address], [id number], tel:[phone] [facility] End stage renal diseaseCompression of Vein 5 Hardy Mcintosh. [address] [facility], [address] [facility], [place], [place], [id number] , [place]. tel:[phone] Referring Provider: David Gong, [facility] [facility] [address], [place], [address]. tel:[phone] [facility], [address] [place] [address], [id number], tel:[phone] [facility] No Information 5 Madan La . [address] [place] [address], [id number] , . tel:[phone] As per patient privacy policy some of the clinical information may not be visible. Family History Family Member Type Diagnosis Age At Onset No Information Payers Payer name Insurance type Covered republican ID Authoriza tion(s) Medicare [place] [id number] [facility] CI [id number] Social History Type Description Quantity Date Captured Comments Sex Female Smoking Status No Information Gender Identity Female Chief Complaint And Reason For Visit No Information Reason For Referral Reason For Referral No Information Plan Of Treatment Date Type Action Status Appointment ELENA GARCIA // GEOVANNA GIMENEZ 6 MONTH F/U BOOKED Future Order: Radiology Order Up per Body Flouroscopy ([id number]), Ordered on: Ordered History Of Present Illness Encounter Date Complaint History Of Prese nt Illness No Information Functional Status Date Functional Assessmen t No Information Instructions Date Instruction Additional Infor mation No Information Assessments Type Assessment Date No Information Patient Care Teams Name Effective Dates (start - stop) Status Members No Information
--- OUTSIDE RECORDS SUMMARY | 2025-07-21 02:15 | XMS_ITS | Continuity of Care Document ---
Author Organization [facility] Address [address] [place] [address] Phone Care Team Providers Care Chemical Supervisor Name Role Phone Link Joshi Unavailable Unavailable [...] Diagnoses Date Provider Providers Copied on Encounter [facility] , [address], [place], [place], [address], tel:[phone] [facility] Encounter for dental exam and cleaning w abnormal findings Madelyn Maza. [address], [place], [place], [address]. tel:[phone] Referring Provider: Sonya Bell, [address], [place], [address] . tel:[phone] [facility] , [address], [place], [place], [address], [place] tel:[phone] [facility] Encounter for dental exam and cleaning w abnormal findings Madelyn Leen. [address], [place], [place], [address]. tel:[phone] Referring Provider: Sonya Bell, [address], [place], [address] . tel:[phone] [facility] , [address], [place], [place], [address], [place] tel:[phone] [facility] Encounter for dental exam and cleaning w/o abnormal findings Jassi Lake. [address], [place], [place], [address]. tel:[phone] Referring Provider: Slava Cortez, [address], [place], [address] . tel:[phone] [facility] , [address], [place], [place], [address], [place] tel:[phone] [facility] Encounter for dental exam and cleaning w abnormal findings Sarah Mckee. [address], [place], [place], [address]. tel:[phone] Referring Provider: Sonya Bell, [address], [place], [address] . tel:[phone] [facility] , [address], [place], [place], [address], [place] tel:[phone] [facility] Encounter for dental exam and cleaning w/o abnormal findings Sarah Mckee. [address], [place], [place], [address]. tel:[phone] [facility] , [address], [place], [place], [address], [place] tel:[phone] Care Guidelines No Information Family History Family Member Type Diagnosis Age At Onset No Information Payers Payer name Insurance type Covered democrat ID merary rebekahdakotah(s) [facility] [id number] Social History Type Description Quantity Date Captured Comments Sex Female Smoking Status No Information Sexual Orientation Straight or heterosexual February Chief Complaint And Reason For Visit No [...]
[2025-07-24 14:18] VITALS: BMI 62.0
--- NOTE | 2025-07-24 14:31 | PC.NURSE ---
[facility] has started construction of its new state of the art ER which will open Spring 2026. With this, we anticipate parking may be a challenge for some our surgical patients and families. Parking spaces are limited but are available for all Surgical, obstetrics, and ER patients sharing this lot. If you arrive and find you are having a hard time finding a parking space, please note that we understand the challenges, please drive around the hospital and park near Hospital Entrance 1. When you enter this entrance, you can ask a volunteer to direct or take you back to the surgical waiting area to check in. We appreciate everyone?s understanding of these expected challenges while we build for your future. Report to the Outpatient Waiting Room, entrance under the green pavilion located off [address], at time _11:30am on date __07/30/25 . Planned Procedure Time: __1:30pm .? Time changes happen often and if your time is changed the preop area will call you the afternoon before. - You and your visitor will be asked to self-screen and do not enter if you have any COVID symptoms. Please call surgeon if you need to reschedule. - A mask is optional within the hospital at this time. Patients may have clear liquids (water, carbonated beverages, clear teas, apple juice) until 3 hours prior to surgery with a maximum of 20 ounces. - No food from midnight until time of surgery and no smoking, or chewing tobacco (or any form of nicotine). No chewing gum, candy or mints. (10:30am) Take only the following medications with a SIP of water on the morning of surgery: NONE DO NOT STOP ANY OF YOUR OTHER PRESCRIPTION MEDICATIONS PRIOR TO SURGERY EXCEPT THE FOLLOWING Hold all vitamins and supplements for 3 days per anesthesiologist. Medications to discontinue per physician HOLD ASPIRIN per Dr Denton if told too. Date to take last dose Pending Please no make-up, nail togolese, hairspray, perfume, deodorant, or body powder the day of surgery.? No jewelry (including any body piercings) or valuables the day of surgery, leave them at home.? Please take a shower or bath the night before, or the morning of, surgery with an antibacterial soap.? Wear comfortable, loose fitting clothing.? - Jewelry must be removed prior to entering the operating room.? Rings and piercings that are not removed may be cut off. - The hospital will not accept responsibility for valuables.? - Please leave all valuables, including medications, at home the day of surgery. If you are going home after surgery, a licensed straddle bug driver must drive you home.? - NO public transportation without another adult if you receive anesthesia. - We recommend that an adult stay with you for 24 hours following discharge. - We also recommend that you do not drive, make important decision, drink alcoholic beverages, or take any drugs that were not prescribed by your health care provider for at least 24 hours after your discharge time. Follow any additional instructions given to you from your surgeon. Telephone instructions given to __Patient and asked if any additional questions and then verbalized understanding. Patient advised to call surgeon office or pre surgery nurse liaison [phone] if any additional questions.
[2025-07-30] VITALS (8 sets, daily range): BP systolic 101–138; BP diastolic 56–81; PULSE 69–75; RESP 12–17; TEMP 36.2–36.6; O2SAT 94–100; BMI 62.7
--- OUTSIDE RECORDS SUMMARY | 2025-07-30 01:06 | XMS_ITS | Encounter Summary ---
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 [address] [place] [address] Physician Clinical Cytogeneticist Physician Clinical Cytogeneticist 05/17/25 documented as of this encounter
--- OUTSIDE RECORDS SUMMARY | 2025-07-30 01:06 | XMS_ITS ---
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 Assessment & Plan (10/26/2023 9:15 AM COLD WORK OPERATOR): Defer cataract surgery until signs and symptoms indicate. Pt was educated on the diagnosis. Recommend daily UV eye protection. Assessment & Plan (10/27/2020 9:01 AM COLD WORK OPERATOR): Not yet Visually significant; defer cataract extraction [...] rescue Assessment & Plan (11/23/2019 5:30 PM COLD WORK OPERATOR): Due to insulin overdose (accidental) - continue to monitor as above and treat as needed per hypoglycemia protocol Assessment & Plan (11/22/2019 10:08 PM COLD WORK OPERATOR): Due to insulin overdose (accidental) - continue to monitor as above and treat as needed per hypoglycemia protocol Cellulitis of leg, right 11/22/2019 Assessment & Plan (11/23/2019 5:30 PM COLD WORK OPERATOR): Was seen by dermatology on 11/08/2019 at which time culture was performed. Patient has culture results which are positive for proteus mirabilis sensitive to ampicillin. She was prescribed ampicillin 500mg BID for 30 days per patient. - Continue ampicillin 500mg BID while inpatient Assessment & Plan (11/22/2019 10:49 PM COLD WORK OPERATOR): Was seen by dermatology on 11/08/2019 at [...] be further evaluated by US Pt has drill runner helper and has appointment coming up This finding was discussed and she will follow up with them Diabetes mellitus 07/10/2019 Assessment & Plan (08/13/2024 12:40 PM CDT): - Diabetes is complicated by neuropathy, end-stage renal disease on hemodialysis, hypertension, hyperlipidemia and obesity. 90-day Dexcom GMI 7.6%, above goal. Lab Results Component Value Date HGBA1C 6.8 02/22/2022 Per [place] [employer], goal A1c is less 7% [...] etc. Assessment & Plan (08/26/2019 7:42 AM COLD WORK OPERATOR): No longer requires insulin therapy now that [...] a catheter for HD in [facility]. Initially managed with eliquis but transitioned [...] 06/26/2019 Assessment & Plan (11/23/2019 5:30 PM COLD WORK OPERATOR): Continue allopurinol Assessment & Plan (11/22/2019 10:03 PM COLD WORK OPERATOR): Continue allopurinol Assessment & Plan (07/16/2019 9:40 [...] safety. Assessment & Plan (11/15/2024 9:09 PM COLD WORK OPERATOR): Managed by renal, need to minimize risk [...] hypoglycemia. Assessment & Plan (10/20/2022 10:20 AM COLD WORK OPERATOR): Need to minimize risk of hypoglycemia. Assessment [...] hypoglycemia Assessment & Plan (11/23/2019 5:30 PM COLD WORK OPERATOR): HD MWF Access: Last HD: 11/20 (mon). She had rescheduled her outpatient HD for today (Thursday 11/23 at 10:30am) - consult renal given elevating blood sugars, will need regimen going forward with current infection. Assessment & Plan (11/23/2019 5:20 PM COLD WORK OPERATOR): HD MWF Access: Last HD: 11/20 (mon). She had rescheduled her outpatient HD for today (Thursday 11/23 at 10:30am) - consult renal given elevating blood sugars, will need regimen going forward with current infection. Assessment & Plan (08/26/2019 7:43 AM COLD WORK OPERATOR): No longer requires insulin therapy. Assessment & [...] bilateral knee pain. Patient discharge with home PT/OT/penitentiary which has not been initiated. Continue lidocaine [...] bilateral knee pain. Patient discharge with home PT/OT/penitentiary which has not been initiated. Continue lidocaine [...] bilateral knee pain. Patient discharge with home PT/OT/penitentiary which has not been initiated. Continue lidocaine patch bilateral knees, oral prn tylenol and diclofenac dose increased to 4gm with improvement. Encouraged patient to use medications to improve mobility with therapy and agreeable. PT/OT for debilitation. Await SNF, insurance approval still pending. Assessment & Plan (07/25/2019 11:17 AM CDT): Recent admission 07/10-07/19 for OA bilateral knee pain. Patient discharge with home PT/OT/penitentiary which has not been initiated. Continue lidocaine patch bilateral knees, oral prn tylenol and diclofenac dose increased to 4gm with improvement. Encouraged patient to use medications to improve mobility with therapy and agreeable. PT/OT for debilitation. Await SNF Assessment & Plan (07/24/2019 2:04 PM CDT): Recent admission 07/10-07/19 for bilateral knee pain. Patient discharge with home PT/OT/penitentiary which has not been initiated. -continue lidocaine patch bilateral knees -continue prn tylenol and diclofenac PT/OT for debilitation. Assessment & Plan (07/23/2019 1:55 PM CDT): Recent admission 07/10-07/19 for bilateral knee pain. Patient discharge with home PT/OT/penitentiary which has not been initiated. -continue lidocaine patch bilateral knees -continue prn tylenol and diclofenac Assessment & Plan (07/22/2019 6:15 PM CDT): Recent admission 07/10-07/19 for bilateral knee pain. Patient discharge with home PT/OT/penitentiary which has not been initiated. -continue lidocaine [...] 01/09/2019 Assessment & Plan (11/23/2019 5:30 PM COLD WORK OPERATOR): Continue phos binder - phos 4.9, prior to dialysis. - patient reports previously low and discontinued sevelamer Assessment & Plan (11/23/2019 5:23 PM COLD WORK OPERATOR): Continue phos binder - phos 4.9, prior to dialysis. - patient reports previously low and discontinued sevelamer Anemia of chronic renal failure 06/01/2018 Assessment & Plan (11/23/2019 5:29 PM COLD WORK OPERATOR): Usually received darbopoietin on Fridays with HD. - CBC stable. Assessment & Plan (11/23/2019 5:18 PM COLD WORK OPERATOR): Usually received darbopoietin on Fridays with HD. [...] Component Value Date HGBA1C 6.8 02/22/2022 Per [place] [employer], goal A1c is less 7% [...] etc. Assessment & Plan (11/15/2024 9:10 PM COLD WORK OPERATOR): Overall glycemic control is within a reasonable range of control and safety. A1c 6.6% Assessment & Plan (05/12/2024 2:26 PM CDT): Glucoses a little high, but need to minimize risk of hypoglycemia. Assessment & Plan (02/08/2024 8:39 PM CDT): Glucoses very high after meals. Needs adjustments in basal and mealtime insulins. Assessment & Plan (10/26/2023 9:15 AM COLD WORK OPERATOR): Pt ed. Stressed BG control (HbA1C<7) to [...] diabetes. Assessment & Plan (10/22/2022 12:48 PM COLD WORK OPERATOR): Awaiting Hemoglobin A1c result; Dexcom report average [...] and she has also met with a blending kettle tender. Assessment & Plan (02/23/2022 10:29 AM CDT): Hemoglobin A1c decreased to 6.8%, with minimal hypoglycemia. Continue using Dexcom for continuous monitoring and low BG alarms. She is taking Lantus PM daily, consistently. She is taking Humalog with meals and using sliding scale. She plans to continue making diet changes to help lower BG. Assessment & Plan (11/18/2021 12:55 PM COLD WORK OPERATOR): Needs adjustments in insulins, particularly with variable [...] hypoglycemia. Assessment & Plan (10/27/2020 9:01 AM COLD WORK OPERATOR): No retinopath; pt ed BG control -annual [...] today Assessment & Plan (11/15/2024 9:09 PM COLD WORK OPERATOR): Continue supplement, monitored by renal Assessment & [...] renal Assessment & Plan (11/18/2021 12:52 PM COLD WORK OPERATOR): Continue supplement, monitored by renal Assessment & Plan (03/17/2021 2:38 PM CDT): Continue supplement, monitored by renal Assessment & Plan (03/06/2020 10:42 AM CDT): Continue supplement, monitored by renal Assessment & Plan (06/15/2018 7:52 AM CDT): On daily supplement, chronic renal insufficiency Pes planus 10/18/2012 JASON on CPAP 10/18/2012 Assessment & Plan (11/23/2019 5:30 PM COLD WORK OPERATOR): Continue CPAP with sleep. - CPAP ordered Assessment & Plan (11/22/2019 10:09 PM COLD WORK OPERATOR): Continue CPAP with sleep. - CPAP ordered [...] mask/CPAP. Sleeping well. 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 Assessment & Plan (07/27/2019 11:17 AM CDT): JASON w/ cpap at night, setting 11cmHg. Compliant with nightly mask/CPAP. Sleeping well. 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 Assessment & Plan (07/26/2019 11:43 AM CDT): JASON w/ cpap at night, setting 11cmHg. Compliant with nightly mask. Sleeping well. Defer to PCP for [facility] weight management, with morbid obesity (BMI 60) playing a role. Assessment & Plan (07/25/2019 11:19 AM CDT): JASON w/ cpap at night, setting 11cmHg. Compliant with nightly mask. 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 Assessment & [...] dialysis. Assessment & Plan (10/20/2022 10:17 AM COLD WORK OPERATOR): She is taking ezetimibe 10mg, no longer [...] bleed. Assessment & Plan (11/23/2019 5:29 PM COLD WORK OPERATOR): Continue home losartan - routine vitals Assessment & Plan (11/23/2019 5:26 PM COLD WORK OPERATOR): Continue home losartan - routine vitals Assessment [...] 020 Assessment & Plan (11/23/2019 5:30 PM COLD WORK OPERATOR): Off insulin since Aug 2019 due to [...] PCP. Assessment & Plan (11/23/2019 5:25 PM COLD WORK OPERATOR): Off insulin since Aug 2019 due to [...] line 04/23, plan for outpatient dialysis at [facility] - 120mg IV Lasix BID->bumex - Continue [...]
--- OUTSIDE RECORDS SUMMARY | 2025-07-30 01:07 | XMS_ITS | Encounter Summary ---
Author Organization [facility] Address [address] [place] [address] Phone Care Team Providers Care Emd Teacher Name Role Phone Chelle Espinoza MD Unavailable [phone] Marguerite Fuchs MD Primary Care Provider Aft, Cesilia Allen MD PhD Unavailable [phone] Peter Joe MD Unavailable [phone] [facility] [phone] Encounter Details Date Type Department Care Team [...] on file Legal Sex Female 3:06 AM TECHNOLOGY METHODOLOGY CONSULTANT Gender Identity Not on file Sexual Orientation [...] on filedocumented in this encounter Care Teams Emd Teacher Relationship Specialty Start Date End Date Marguerite Fuchs MD PCP - General Family Practice 10/27/20 Chelle Espinoza MD Referring Physician Endocrinology Diabetes & Metabolism 03/06/20 Cesilia Aguilar MD PhD Surgeon Surgical Oncology 11/18/21 [place] [address] [facility] [address] [place] [address] Consulting Physician Nephrology 05/12/24 Catherine Duncan PA [address] [facility] DIV IM ENDOCRINOLOGY, [facility] [address] [place] [address] Physician Supervisor Customer Complaint Service Physician Supervisor Customer Complaint Service 05/17/25 documented as of this encounter
--- OUTSIDE RECORDS SUMMARY | 2025-07-30 01:07 | XMS_ITS | Encounter Summary ---
Author Organization [facility] Address [address] [place] [address] Phone Care Team Providers Care Machine Trimmer Name Role Phone Chelle Espinoza MD Unavailable Marguerite Fuchs MD Primary Care Provider Aft, Cesilia Allen MD PhD Unavailable Peter Joe MD Unavailable Catherine Duncan Unavailable [phone] Encounter Details Date Type Department Care Team (Late st Contact Info) Description 06/02/2025 Results Follow-Up [facility] Medicine Endocrinology Metabolism and Lipid [address] [facility] [address] [place] [address] [place] [id number] Catherine Duncan PA [address] [place] [address] Diabetes Mellitus Type 1 Evaluation, C-peptide Social [...] on file Legal Sex Female 3:06 AM CAMPGROUND MANAGER Gender Identity Not on file Sexual [...] Type Associated Problems Recent Progress Patient-Stated? Author [facility] Chronic Pain Care Plan Chronic Care [...] on filedocumented in this encounter Care Teams Machine Trimmer Relationship Specialty Start Date End Date Marguerite Fuchs MD PCP - General Family Practice 10/27/20 Chelle Espinoza MD Referring Physician Endocrinology Diabetes & Metabolism 03/06/20 Aft, Cesilia Allen MD PhD Surgeon Surgical Oncology 11/18/21 [place] [address] [id number] Consulting Physician Nephrology 05/12/24 Catherine Duncan PA [address] [facility] ENDOCR[facility]OLOGY, [address] [id number] Physician Temple Meat Cutter Physician Temple Meat Cutter 05/17/25 documented as of this encounter
--- OUTSIDE RECORDS SUMMARY | 2025-07-30 01:07 | XMS_ITS | Clinical Summary ---
Author Organization [facility] Address [address] [place] [id number] Care Team Providers Care Financial Writer Name Role Phone Chelle Espinoza MD Unavailable [phone] Marguerite Fuchs MD Primary Care Provider Aft, Cesilia Allen MD PhD Unavailable Peter Joe MD Unavailable [phone] [facility] Unavailable [phone] Allergies Active Allergy Reactions Criticality Noted Date [...] complication, with long-term current use of insulin ([facility]) Inject 44 units under the skin daily. 42 mL 2 025 Active glucagon (BAQSIMI) 3 mg/actuation spray,non-aerosolInd ications:Type 2 diabetes mellitus with complication, with long-term current use of insulin ([facility]) Administer 1 spray into one nostril as [...] complication, with long-term current use of insulin ([facility]) Inject 24-29 units with breakfast, 38-32 units with lunch and dinner and 5 units with snacks. Max TDD 110 units daily 99 mL 2 025 Active insulin environmental adviser cart,aut,G6/7,cntr (Omnipod 5 G6-G7 Intro Kt,Gen5,) cartridgeIndications :Type 2 diabetes mellitus with complication, with long-term current use of insulin ([facility]) To change POD every 3 days 1 each 025 Active insulin pump cart,auto,BT,G6/7 (Omnipod 5 G6-G7 Pods, Gen 5,) cartridgeIndications :Type 2 diabetes mellitus with complication, with long-term current use of insulin ([facility]) To change POD every 3 days 10 each 6 025 Active semaglutide (OZEMPIC) 0.25 mg or 0.5 mg (2 mg/3 mL) pen injector injectionIndications :type 2 diabetes mellitus Inject 0.5 mg under the skin once a week 2 mL 11 025 Active insulin pump cart,auto,BT,G6/7 (Omnipod 5 G6-G7 Pods, Gen 5,) cartridgeIndications :Type 2 diabetes mellitus with complication, with long-term current use of insulin (HCC) To change POD every 2 days 10 each 11 Active acetaminophen 325 mg capsule Take 2 [...] complication, with long-term current use of insulin ([facility]),Class 3 severe obesity due to excess calories [...] week 2 mL 11 025 2024 Discontinued insulin pump cart,auto,BT,G6/7 (Omnipod 5 G6-G7 Pods, Gen 5,) cartridgeIndications :Type 2 diabetes mellitus with complication, with long-term current use of insulin (HCC) To change POD every 2 days 10 each 11 025 2024 Discontinued(R eorder) Active Problems Problem Noted Date Diagnosed Date Spondylosis of lumbar region without myelopathy or radiculopathy 10/07/2022 Cluneal neuropathy 07/21/2022 Lumbar radicular pain 04/19/2022 Has immunity to COVID-19 virus 11/11/2021 Overview (11/11/2021): Pfizer vaccine 10/09/2021, 03/03/2021, 02/10/2021 Assessment & Plan (11/11/2021 12:12 PM INTERFACE DESIGNER): Pfizer vaccine 10/09/2021, 03/03/2021, 02/10/2021 Abnormal findings [...] Monitor. Assessment & Plan (10/26/2023 9:15 AM INTERFACE DESIGNER): Defer cataract surgery until signs and symptoms indicate. Pt was educated on the diagnosis. Recommend daily UV eye protection. Assessment & Plan (10/27/2020 9:01 AM INTERFACE DESIGNER): Not yet Visually significant; defer cataract extraction [...] rescue Assessment & Plan (11/23/2019 5:30 PM INTERFACE DESIGNER): Due to insulin overdose (accidental) - continue to monitor as above and treat as needed per hypoglycemia protocol Assessment & Plan (11/22/2019 10:08 PM INTERFACE DESIGNER): Due to insulin overdose (accidental) - continue to monitor as above and treat as needed per hypoglycemia protocol Cellulitis of leg, right 11/22/2019 Assessment & Plan (11/23/2019 5:30 PM INTERFACE DESIGNER): Was seen by dermatology on 11/08/2019 at which time culture was performed. Patient has culture results which are positive for proteus mirabilis sensitive to ampicillin. She was prescribed ampicillin 500mg BID for 30 days per patient. 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 90-day Dexcom GMI 7.6%, above goal. Lab Results Component Value Date HGBA1C 6.8 02/22/2022 Per [place] [employer], goal A1c is less 7% [...] etc. Assessment & Plan (08/26/2019 7:42 AM INTERFACE DESIGNER): No longer requires insulin therapy now that [...] Had a catheter for HD in [facility]. Initially managed with eliquis but transitioned [...] 06/26/2019 Assessment & Plan (11/23/2019 5:30 PM INTERFACE DESIGNER): Continue allopurinol Assessment & Plan (11/22/2019 10:03 PM INTERFACE DESIGNER): Continue allopurinol Assessment & Plan (07/16/2019 9:40 [...] safety. Assessment & Plan (11/15/2024 9:09 PM INTERFACE DESIGNER): Managed by renal, need to minimize risk [...] hypoglycemia. Assessment & Plan (10/20/2022 10:20 AM INTERFACE DESIGNER): Need to minimize risk of hypoglycemia. Assessment [...] hypoglycemia Assessment & Plan (11/23/2019 5:30 PM INTERFACE DESIGNER): HD MWF Access: Last HD: 11/20 (mon). She had rescheduled her outpatient HD for today (Thursday 11/23 at 10:30am) - consult renal given elevating blood sugars, will need regimen going forward with current infection. Assessment & Plan (11/23/2019 5:20 PM INTERFACE DESIGNER): HD MWF Access: Last HD: 11/20 (mon). She had rescheduled her outpatient HD for today (Thursday 11/23 at 10:30am) - consult renal given elevating blood sugars, will need regimen going forward with current infection. Assessment & Plan (08/26/2019 7:43 AM INTERFACE DESIGNER): No longer requires insulin therapy. Assessment & [...] 11:36 AM CDT): On HD MWF via E AVF - renal consulted. Assessment & Plan (07/28/2019 11:59 AM CDT): On HD MWF - tolerated 07/23 & 07/25. no current electrolyte abnormalities. Adjusting antihypertensives: decrease coreg 6.25 BID, continue zemplar TThSat, serum phos with AM labs, held losartan. No plans to resume. Continue selevamer. Dialysis per renal. On RA. Next monday. AVF site looks ok. Assessment [...] 01/09/2019 Assessment & Plan (11/23/2019 5:30 PM INTERFACE DESIGNER): Continue phos binder - phos 4.9, prior to dialysis. - patient reports previously low and discontinued sevelamer Assessment & Plan (11/23/2019 5:23 PM INTERFACE DESIGNER): Continue phos binder - phos 4.9, prior to dialysis. - patient reports previously low and discontinued sevelamer Anemia of chronic renal failure 06/01/2018 Assessment & Plan (11/23/2019 5:29 PM INTERFACE DESIGNER): Usually received darbopoietin on Fridays with HD. - CBC stable. Assessment & Plan (11/23/2019 5:18 PM INTERFACE DESIGNER): Usually received darbopoietin on Fridays with HD. [...] Component Value Date HGBA1C 6.8 02/22/2022 Per [place] [employer], goal A1c is less 7% [...] etc. Assessment & Plan (11/15/2024 9:10 PM INTERFACE DESIGNER): Overall glycemic control is within a reasonable range of control and safety. A1c 6.6% Assessment & Plan (05/12/2024 2:26 PM CDT): Glucoses a little high, but need to minimize risk of hypoglycemia. Assessment & Plan (02/08/2024 8:39 PM CDT): Glucoses very high after meals. Needs adjustments in basal and mealtime insulins. Assessment & Plan (10/26/2023 9:15 AM INTERFACE DESIGNER): Pt ed. Stressed BG control (HbA1C<7) to [...] diabetes. Assessment & Plan (10/22/2022 12:48 PM INTERFACE DESIGNER): Awaiting Hemoglobin A1c result; Dexcom report average [...] and she has also met with a grinding machine operator. Assessment & Plan (02/23/2022 10:29 AM CDT): Hemoglobin A1c decreased to 6.8%, with minimal hypoglycemia. Continue using Dexcom for continuous monitoring and low BG alarms. She is taking Lantus PM daily, consistently. She is taking Humalog with meals and using sliding scale. She plans to continue making diet changes to help lower BG. Assessment & Plan (11/18/2021 12:55 PM INTERFACE DESIGNER): Needs adjustments in insulins, particularly with variable [...] hypoglycemia. Assessment & Plan (10/27/2020 9:01 AM INTERFACE DESIGNER): No retinopath; pt ed BG control -annual [...] today Assessment & Plan (11/15/2024 9:09 PM INTERFACE DESIGNER): Continue supplement, monitored by renal Assessment & [...] renal Assessment & Plan (11/18/2021 12:52 PM INTERFACE DESIGNER): Continue supplement, monitored by renal Assessment & Plan (03/17/2021 2:38 PM CDT): Continue supplement, monitored by renal Assessment & Plan (03/06/2020 10:42 AM CDT): Continue supplement, monitored by renal Assessment & Plan (06/15/2018 7:52 AM CDT): On daily supplement, chronic renal insufficiency Pes planus 10/18/2012 JASON on CPAP 10/18/2012 Assessment & Plan (11/23/2019 5:30 PM INTERFACE DESIGNER): Continue CPAP with sleep. - CPAP ordered Assessment & Plan (11/22/2019 10:09 PM INTERFACE DESIGNER): Continue CPAP with sleep. - CPAP ordered [...] mask/CPAP. Sleeping well. Defer to PCP for long-term weight management & goal setting for weight loss, with morbid obesity (BMI 60) playing a role. Assessment & Plan (07/27/2019 11:17 AM CDT): JASON w/ cpap at night, setting 11cmHg. Compliant with nightly mask/CPAP. Sleeping well. 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 Assessment & Plan (07/26/2019 11:43 AM CDT): JASON w/ cpap at night, setting 11cmHg. Compliant with nightly mask. Sleeping well. Defer to PCP for long-term weight management, with morbid obesity (BMI 60) playing a role. Assessment & Plan (07/25/2019 11:19 AM CDT): JASON w/ cpap at night, setting 11cmHg. Compliant with nightly mask. Defer to PCP for long-term weight management, with morbid obesity (BMI 60) [...] QHS Assessment & Plan (11/23/2019 5:30 PM INTERFACE DESIGNER): Continue Cymbalta and gabapentin Assessment & Plan (11/22/2019 10:12 PM INTERFACE DESIGNER): Continue Cymbalta and gabapentin Assessment & Plan (08/26/2019 7:43 AM INTERFACE DESIGNER): Clinically stable at this time Assessment & [...] panel Assessment & Plan (11/15/2024 9:09 PM INTERFACE DESIGNER): Continue statin, optimize glycemic control. Assessment & [...] dialysis. Assessment & Plan (10/20/2022 10:17 AM INTERFACE DESIGNER): She is taking ezetimibe 10mg, no longer [...] bleed. Assessment & Plan (11/23/2019 5:29 PM INTERFACE DESIGNER): Continue home losartan - routine vitals Assessment & Plan (11/23/2019 5:26 PM INTERFACE DESIGNER): Continue home losartan - routine vitals Assessment [...] 020 Assessment & Plan (11/23/2019 5:30 PM INTERFACE DESIGNER): Off insulin since Aug 2019 due to [...] PCP. Assessment & Plan (11/23/2019 5:25 PM INTERFACE DESIGNER): Off insulin since Aug 2019 due to [...] Description 07/25/2025 10:00 AM CDT Clinical Support [facility] Endocrinology Metabolism and Lipid [address] [place] [address] [place] [phone] Arely Arias, ELIZABETH Type 2 diabetes mellitus with complication, with long-term current use of insulin (HCC) (Primary Dx) 07/24/2025 Telephone [facility] Endocrinology Metabolism and Lipid [address] [place] [address] [place] [address] 07/22/2025 Orders Only [facility] Medicine Endocrinology Metabolism and Lipid [address] [place] [address] [place] [address] Chio Gomez RMA Type 2 diabetes mellitus with complication, with long-term current use of insulin (HCC) 07/14/2025 9:00 AM CDT - 07/14/2025 11:59 PM CDT Hospital Encounter [facility] [address] [place] [address] Jane Franklin NP Diabetic peripheral neuropathy (HCC) (Primary Dx); Chronic pain of both knees; Chronic low back pain without sciatica, unspecified back pain laterality Discharge Disposition: Discharge to home or self care 07/07/2025 Telephone [facility] Endocrinology Metabolism and Lipid [address] [place] [address] [place] [address] Maria Dolores Tabares RN DONNA tandem 06/04/2025 7:51 AM CDT - 06/04/2025 11:59 PM CDT Hospital Encounter [facility] the [address] [place] [phone] Kait, [facility] Pain Management Diabetic peripheral neuropathy (HCC) (Primary Dx) Discharge Disposition: Discharge to home or self care 06/04/2025 Orders Only [facility] Medicine Endocrinology Metabolism and Lipid [address] [place] [address] [place] [address] Chio Gomez RMA Type 2 diabetes mellitus with complication, with long-term current use of insulin (HCC) (Primary Dx) 06/04/2025 Orders Only [facility] Medicine Endocrinology Metabolism and Lipid [address] [place] [address] [place] [address] Catherine Duncan PA Type 2 diabetes mellitus with complication, with long-term current use of insulin (HCC) (Primary Dx) 06/03/2025 Orders Only [facility] [address] [facility] [address] [place] [address] Jane Franklin NP 06/02/2025 Results Follow-Up [facility] Endocrinology Metabolism and Lipid [address] [facility] 13th [place] [address] [place] [address] Catherine Duncan PA Diabetes Mellitus Type 1 Evaluation, C-peptide 05/30/2025 Telephone [facility] Endocrinology Metabolism and Lipid [address] [facility] 5th [place] [address] [place] [address] Maria Dolores Tabares RN Lab Results 05/30/2025 Telephone [facility] [address] [facility] [address] [place] [address] Jane Franklin NP PMC Preprocedure 05/28/2025 Telephone [facility] Endocrinology Metabolism and Lipid [address] [facility] Medicine 5th [place] [address] [place] [address] Maria Dolores Tabares RN CMN tandem 05/26/2025 1:31 PM CDT - 05/26/2025 11:59 PM CDT Hospital Encounter [facility] [address] [facility] [address] [place] [address] Jane Franklin NP Diabetic peripheral neuropathy (HCC) (Primary Dx); Type 2 diabetes mellitus with complication, with long-term current use of insulin (HCC); Sacroiliitis (CMS/HCC) - Bilateral; Spondylosis of lumbar region without myelopathy or radiculopathy Discharge Disposition: Discharge to home or self care 05/26/2025 8:14 AM CDT - 05/26/2025 11:59 PM CDT Hospital Encounter [facility] Advanced [facility] [address] [place] [address] Screening mammogram, encounter for Discharge Disposition: Discharge to home or self care 05/16/2025 9:00 AM CDT Clinical Support [facility] Medicine Endocrinology Metabolism and Lipid [address] [place] [address] [place] [address] Shelia Robbins RN Type 2 diabetes mellitus with complication, with long-term current use of insulin (HCC) (Primary Dx); Corns and callosities 05/16/2025 8:00 AM CDT Clinical Support [facility] Endocrinology Metabolism and Lipid [address] [place] [address] [place] [address] Type 2 diabetes mellitus with complication, with long-term current use of insulin (HCC) (Primary Dx) 05/16/2025 Orders Only [facility] Endocrinology Metabolism and Lipid [address] [place] [address] [place] [address] Catherine Duncan PA Type 2 diabetes mellitus with complication, with long-term current use of insulin (HCC) (Primary Dx) 05/16/2025 Telephone [facility] Endocrinology Metabolism and Lipid [address] [place] [address] [place] [phone] Maria Dolores Tabares RN 05/15/2025 12:00 PM CDT Telemedicine [facility] Endocrinology Metabolism and Lipid [address] [place] [address] [place] [address] Chelle Espinoza MD Type 2 diabetes mellitus with complication, with long-term current use of insulin (HCC) (Primary Dx); Mixed hyperlipidemia; ESRD (end stage renal disease) on dialysis (HCC); Vitamin D deficiency 05/15/2025 Telephone [facility] Medicine Endocrinology Metabolism and Lipid [address] [place] [address] [place] [phone] Maria Dolores Tabares, RN Prior Auth; [email or web address] 05/15/2025 Telephone [facility] Medicine Endocrinology Metabolism and Lipid [address] 5[address] [place] [address] [place] [phone] Maria Dolores Tabares, RN pain managment referral an CDE appt 05/02/2025 Telephone [facility] Medicine Surgery [address] [facility] [address] [place] [phone] Pj Toure MD 04/30/2025 Orders Only [facility] Endocrinology Metabolism and Lipid [address] [facility] Advanced [facility] 5th [place] [address] [place] [phone] ProviderMarissa MD 04/30/2025 Telephone [facility] Endocrinology Metabolism and Lipid [address] 5[address] [place] [address] [place] [phone] Maria Dolores Tabares, section laborer results [place] from Last 3 Months Immunizations Immunization Administration Dates Next Due Influenza, Quadrivalent, Spl it, Preservative Free, Intramuscular 08/08/2019 Influenza, Trivalent, IM (MDV) 11/14/2015,2012 Influenza, Trivalent, Preser vative Free, Intramuscular 07/23/2012 Influenza, Unspecified 07/31/2023,07/31/2020 Darrius (J&J) SARS-CoV-2 Vaccination 08/01/2023 MMR 09/14/2015,08/14/2015 Pfizer SARS-CoV-2 Monovalent Vaccination (12+ Yrs) PURPLE 10/09/2021,03/03/2021,02/10/2021 Pneumococcal Polysaccharide PPV23 10/18/2020,10/2011,11/19/2010 Tdap 08/14/2015 Surgical History Surgery Date Site/Laterality Comments [place] DELIVERY ONLY 10/23/1988 - 10/22/1989 Section - (Added by TW Conv) [place] CHOLECYSTECTOMY 10/23/2013 - 10/22/2014 Cholecystectomy - 1993 (Added by TW Conv) COLONOSCOPY 10/23/2019 - 10/22/2020 Complete Colonoscopy - (Added by TW Conv) PARTIAL NEPHRECTOMY 10/23/2011 - 10/22/2012 Left Kidney Surgery Laparoscopic Partial Nephrectomy - left 02/14/2012 (Added by TW Conv) [place] UNLISTED PROCEDURE DENTOALVEOLAR STRUCTURES Oral Surgery Tooth Extraction - (Added by TW Conv) TUNNELED LINE PLACEMENT > 5 YEARS 04/23/2019 N/A [place] REPAIR FIRST ABDOMINAL WALL HERNIA 10/23/2015 - [...] Maternal Grandfather Yevgeniy Mcgee Alive Mother Rosalia You Mother's Sister Other 1 Other 2 Other 3 Other 4 Other 5 Other 6 Other 7 Paternal Grandmother Social History Tobacco Use Types Packs/Day Years Used Date Smoking Tobacco: Former Cigarettes 0.3 10 1 1987 Smokeless Tobacco: Never Tobacco Cessation:Counseling Given: [...] on file Legal Sex Female 3:06 AM INTERFACE DESIGNER Gender Identity Not on file Sexual Orientation [...] 06/08/2021, Additional history exists eGFR 08/30/2022 08/30/2021, 10/0 03/2021, 11/15/2020, Additional history exists Well Visit [...] as needed Medical Devices Implanted Type Area [employer] Dynamics Developer Device Identifier Shelf Expiration Date Model / Serial / Lot [employer] [id number] 4-7mm 45cm 10cm Removable Ring Line Standard Lead Teller Graft - [id number] - [id number] Implanted:Qty: 1 on 05/28/2019 by Pj Toure MD at [facility] Other - see comments Left: Arm Wl [employer] [id number] 03/31/2024 [id number] / [id number] / Description:Left AV Graft Wl [employer] Viabahn 7mm 5cm 120cm Delivery System Superficial Femoral Artery [id number] - [id number] - [id number] Implanted:Qty: 1 on 08/30/2024 by Pj Toure MD at [facility] Stent Left: Arm Wl [employer] [id number] 03/26/2027 [id number] / [id number] / Procedures Procedure Name Priority Date/Time Associated [...] insulin (HCC) EGFR STAT 08/30/2021 9:53 PM INTERFACE DESIGNER HEPATITIS PANEL, ACUTE STAT 11/14/2020 10:19 AM INTERFACE DESIGNER COLONOSCOPY 06/04/2020 4:03 PM CDT LIPID PANEL STAT 06/03/2020 2:56 AM CDT from Last 3 Months or Most Recently Relevant to Health Maintenance Results * Glucose, random (06/09/2025 8:51 AM CDT) Blood us Catherine [employer] [facility] LAB BLOOD ORDERABLE S Final Result Performing Organization Address City/[facility]/ZIP Co de Phone Number EXTERNAL LAB * C-peptide (06/06/2025 11:25 AM CDT) Blood Catherine [employer] [facility] LAB BLOOD ORDERABLE S Final Result Performing Organization Address [facility] Co de Phone Number EXTERNAL LAB * Diabetes Mellitus Type 1 Evaluation (06/02/2025 4:16 PM CDT) Blood Catherine [employer] [facility] LAB BLOOD ORDERABLE S Final Result Performing Organization Address [facility] de Phone Number EXTERNAL LAB [...] Result * (ABNORMAL) eGFR (08/30/2021 9:53 PM INTERFACE DESIGNER) [facility] eGFR 7(L) 90 - 130 mL/min/1.7 3 m2 [facility] Comment: Interpretive Data Reference Interval Normal >/= [...] last reviewed 2020 Blood 08/30/2021 9:53 PM INTERFACE DESIGNER 08/31/2021 1:30 AM INTERFACE DESIGNER Slava Lowe MD LAB BLOOD ORDERABLES Karlee mckeon Result [facility] [place] [address] * Hepatitis panel, acute (11/14/2020 10:19 AM INTERFACE DESIGNER) Pathologist [facility] Hep A IgM Nonreactive Nonreactive [facility] Comment: Interpretive Data: If Hep A IgM Ab is reported as Equivocal, a new sample should be drawn in two weeks for testing. Current interpretive data was last revised on 20. Hep B core IgM Nonreactive Nonreactive [facility] Comment: Interpretive Data If HepB Core [...] last revised on 2020. HepBsAg Nonreactive Nonreactive [facility] Blood specimen (specimen) 11/14/2020 10:19 AM INTERFACE DESIGNER 11/14/2020 10:19 AM INTERFACE DESIGNER us Pierce Clark MD LAB MICROBIOLOGY - GENERAL ORDERABLES Final Result [facility] [address] [place] [address] * COLONOSCOPY (06/04/2020 4:03 PM CDT) Anatomical Region Laterality Modality Other Narrative Procedure Note Cruzito Benitez MD - 06/04/2020 4:03 PM CDT [facility] Patient Name: Fani Horton Procedure Date: 06/04/2020 4:03 PM Date of : 1960 Admit Type: Inpatient Age: 60 Gender: Female Attending MD: Cruzito Simms M.D. Room: [facility] OR POD 5 ROOM 224 Note Status: [...] The scope was passed under direct vision.The [id number] Endoscope was introduced throughthe anus and advanced to the cecum, identified by appendiceal orifice and ileocecal valve. The colonoscopy was performed without difficulty. The patient tolerated the procedure well. The quality of the bowel preparation was evaluated using the BBPS (Kingsley Bowel Preparation Scale) with scores of:Right Colon [...] On: 06/04/2020 4:03 PM Recognized by the [place] [employer] for promoting quality in endoscopy Cruzito Simms MD ENDOSCOPY PROCEDURES Final Result * Lipid panel (06/03/2020 2:56 AM CDT) Cholesterol 163 30 - 199 mg/dL [facility] Comment: Interpretive Data Ages < or = [...] revised on 2018. Triglycerides 125 <=149 mg/dL [facility] Comment: Interpretive Data Ages < or = [...] on 2018. HDL 67 >=40 mg/dL [facility] Comment: Interpretive Data Ages < or = [...] on 2018. LDL, calculated 71 <=129 mg/dL [facility] Comment: Interpretive Data Ages < or = [...] on 2018. Non-HDL Cholesterol 96 mg/dL [facility] Comment: Interpretive Data Ages < or = [...] last revised on 2018. Chol/HDL ratio 2 [facility] Blood specimen (specimen) 06/03/2020 2:56 AM CDT 06/03/2020 3:07 AM CDT Terence Mayen MD LAB BLOOD ORDERABLES Final Result [facility] [place] [address] from Last 3 Months or Most Recently Relevant to Health Maintenance Insurance MEDICARE [facility] [place] MEDICARE [facility] MEDICARE SUPPLEMENT INSUR[place] MED[place]ARE [facility] Advance Directives For more information, please contact: [phone] Documents on File Type Date Recorded Patient Paper Supervisor Expl anation ADVANCE DIRECTIVE 05/31/2019 5:52 AM POWER OF MERCHANDISE ADJUSTMENT CLERK-MEDICAL ADVANCE DIRECTIVE 04/30/2019 7:33 PM POWER OF MERCHANDISE ADJUSTMENT CLERK-MEDICAL ADVANCE DIRECTIVE 04/24/2019 2:54 PM POWER OF MERCHANDISE ADJUSTMENT CLERK-MEDICAL * Full Code (Latest Code Status on [...] 6:22 PM 06/04/2020 2:56 PM Care Teams Financial Writer Relationship Specialty Start Date End Date Marguerite Fuchs MD PCP - General Family Practice 10/27/20 Chelle Espinoza MD Referring Physician Endocrinology Diabetes & Metabolism 03/06/20 Aft, Cesilia Allen MD PhD Surgeon Surgical Oncology 11/18/21 [place] [address] [address] Consulting Physician Nephrology 05/12/24 Catherine Duncan PA [address] [facility] ENDOCRINOLOGY, [address] [id number] Physician Keno Writer/Runner Physician Keno Writer/Runner 05/17/25
--- OUTSIDE RECORDS SUMMARY | 2025-07-30 01:07 | XMS_ITS | Encounter Summary ---
Author Organization [facility] Address [address] [place] [address] Phone Care Team Providers Care Extract Puller Name Role Phone Josephine Acosta MD Primary Care Provider Chelle Espinoza MD Unavailable [phone] Sue Cummins RN Unavailable [phone] Marguerite Fuchs MD Primary Care Provider Rehg, Nickie Ba PRODUCTION LEAD Unavailable [phone] Brennan Wesley MD Unavailable Aft, Cesilia Allen MD PhD Unavailable [phone] Peter Joe MD Unavailable [phone] [facility] [phone] Encounter Details Date Type Department Care Team [...] on file Legal Sex Female 3:06 AM STATISTICIAN MATHEMATICAL Gender Identity Not on file Sexual Orientation [...] COVID: Suspected 11/09/2020 11/09/2020 11/09/2020 9:53 PM STATISTICIAN MATHEMATICAL COVID19 11/09/2020 11/09/2020 12/01/2020 3:05 AM STATISTICIAN MATHEMATICAL COVID: Recovered Comment:Added based on recent COVID infection. 12/01/2020 12/02/2020 03/31/2021 3:05 AM C DT documented as of this encounter Care Teams Extract Puller Relationship Specialty Start Date End Date Josephine Acosta MD PCP - General Family Medicine 07/02/19 10/26/20 Marguerite Fuchs MD [address] [address] PCP - General Family Practice 10/27/20 Chelle Espinoza MD Referring Physician Endocrinology Diabetes & Metabolism 03/06/20 Sue Cummins, RN [address] [place] [address] SHOP Outpatient Circuit Board Repair Technician 06/05/20 07/06/20 Nickie Tidwell NP [address] [place] [address] Nurse Practitioner Nurse Practitioner 03/16/21 02/07/24 Brennan Wesley MD [address] [place] [address] Referring Physician Nephrology 03/16/21 05/11/24 Aft, Cesilia Aleln MD PhD [address] [facility] [address] [place] [address] Surgeon Surgical Oncology 11/18/21 [place] [address] [facility] [address] [place] [address] Consulting Physician Nephrology 05/12/24 Catherine Duncan PA [address] [facility] IM ENDOCRINOLOGY, [facility] [address] [place] [address] Physician Bench Jeweler Physician Bench Jeweler 05/17/25 documented as of this encounter
--- OUTSIDE RECORDS SUMMARY | 2025-07-30 01:07 | XMS_ITS ---
Author Organization [facility] Address [address] [place] [address] Care Team Providers Care Pharmacy Informatics Specialist Name Role Phone Chelle Espinoza MD Unavailable [phone] Marguerite Fuchs MD Primary Care Provider Aft, Cesilia Allen MD PhD Unavailable Peter Joe MD Unavailable [phone] [facility] Un[facility] [phone] Dialysis Access Sites Type Status Location Placement [...] insulin (HCC) EGFR STAT 08/30/2021 9:53 PM FIELD ARTILLERY OPERATIONS MAN HEPATITIS PANEL, ACUTE STAT 11/14/2020 10:19 AM FIELD [employer]PERATIONS MAN COLONOSCOPY 06/04/2020 4:03 PM CDT LIPID PANEL [...] long-term current use of insulin ([facility]) Use with insulin injections 4 times daily [...] long-term current use of insulin ([facility]) Inject 44 units under the skin daily. 42 mL 2 025 Active glucagon (BAQSIMI) 3 mg/actuation spray,non-aerosolInd ications:Type 2 diabetes mellitus with complication, with long-term current use of insulin ([facility]) Administer 1 spray into one [...] long-term current use of insulin ([facility]) Inject 24-29 units with breakfast, 38-32 units with lunch and dinner and 5 units with snacks. Max TDD 110 units daily 99 mL 2 025 Active insulin proposal manager cart,aut,G6/7,cntr (Omnipod 5 G6-G7 Intro Kt,Gen5,) cartridgeIndications :Type 2 diabetes mellitus with complication, with long-term current use of insulin ([facility]) To change POD every 3 days 1 each 025 Active insulin pump cart,auto,BT,G6/7 (Omnipod 5 G6-G7 Pods, Gen 5,) cartridgeIndications :Type 2 diabetes mellitus with complication, with long-term current use of insulin ([facility]) To change POD every 3 [...] long-term current use of insulin ([facility]) To change POD every 2 days 10 each 11 025 Active acetaminophen 325 mg capsule [...] 02/10/2021 Assessment & Plan (11/11/2021 12:12 PM FIELD [employer] OPERATIONS MAN): Pfizer vaccine 10/09/2021, 03/03/2021, 02/10/2021 Abnormal findings [...] Monitor. Assessment & Plan (10/26/2023 9:15 AM FIELD ARTILLERY OPERATIONS MAN): Defer cataract surgery until signs and symptoms indicate. Pt was educated on the diagnosis. Recommend daily UV eye protection. Assessment & Plan (10/27/2020 9:01 AM FIELD ARTILLERY OPERATIONS MAN): Not yet Visually significant; defer cataract extraction [...] rescue Assessment & Plan (11/23/2019 5:30 PM FIELD ARTILLERY OPERATIONS MAN): Due to insulin overdose (accidental) - continue to monitor as above and treat as needed per hypoglycemia protocol Assessment & Plan (11/22/2019 10:08 PM FIELD ARTILLERY OPERATIONS MAN): Due to insulin overdose (accidental) - continue to monitor as above and treat as needed per hypoglycemia protocol Cellulitis of leg, right 11/22/2019 Assessment & Plan (11/23/2019 5:30 PM FIELD ARTILLERY OPERATIONS MAN): Was seen by dermatology on 11/08/2019 at which time culture was performed. Patient has culture results which are positive for proteus mirabilis sensitive to ampicillin. She was prescribed ampicillin 500mg BID for 30 days per patient. - Continue ampicillin 500mg BID while inpatient Assessment & Plan (11/22/2019 10:49 PM FIELD ARTILLERY OPERATIONS MAN): Was seen by dermatology on 11/08/2019 at [...] be further evaluated by US Pt has securities consultant and has appointment coming up This finding was discussed and she will follow up with them Diabetes mellitus 07/10/2019 Assessment & Plan (08/13/2024 12:40 PM CDT): - Diabetes is complicated by neuropathy, end-stage renal disease on hemodialysis, hypertension, hyperlipidemia and obesity. 90-day Dexcom GMI 7.6%, above goal. Lab Results Component Value Date HGBA1C 6.8 02/22/2022 Per [place] [employer], goal A1c is less 7% [...] etc. Assessment & Plan (08/26/2019 7:42 AM FIELD ARTILLERY OPERATIONS MAN): No longer requires insulin therapy now that [...] 10/2019. Had a catheter for HD in [facility]. Initially managed with eliquis but [...] 06/26/2019 Assessment & Plan (11/23/2019 5:30 PM FIELD ARTILLERY OPERATIONS MAN): Continue allopurinol Assessment & Plan (11/22/2019 10:03 PM FIELD ARTILLERY OPERATIONS MAN): Continue allopurinol Assessment & Plan (07/16/2019 9:40 [...] safety. Assessment & Plan (11/15/2024 9:09 PM FIELD ARTILLERY OPERATIONS MAN): Managed by renal, need to minimize risk [...] hypoglycemia. Assessment & Plan (10/20/2022 10:20 AM FIELD ARTILLERY OPERATIONS MAN): Need to minimize risk of hypoglycemia. Assessment [...] hypoglycemia Assessment & Plan (11/23/2019 5:30 PM FIELD ARTILLERY OPERATIONS MAN): HD MWF Access: Last HD: 11/20 (mon). She had rescheduled her outpatient HD for today (Thursday 11/23 at 10:30am) - consult renal given elevating blood sugars, will need regimen going forward with current infection. Assessment & Plan (11/23/2019 5:20 PM FIELD ARTILLERY OPERATIONS MAN): HD MWF Access: Last HD: 11/20 (wed). She had rescheduled her outpatient HD for today (Thursday 11/23 at 10:30am) - consult renal given elevating blood sugars, will need regimen going forward with current infection. Assessment & Plan (08/26/2019 7:43 AM FIELD ARTILLERY OPERATIONS MAN): No longer requires insulin therapy. Assessment & [...] On HD MWF - tolerated 07/23 & 10/3. no current electrolyte abnormalities. Adjusting antihypertensives: decrease [...] Continue selevamer. Dialysis per renal. On . Assessment & Plan (07/26/2019 11:41 AM CDT): [...] bilateral knee pain. Patient discharge with home PT/OT/jail which has not been initiated. Continue lidocaine [...] bilateral knee pain. Patient discharge with home PT/OT/jail which has not been initiated. Continue lidocaine [...] bilateral knee pain. Patient discharge with home PT/OT/jail which has not been initiated. Continue lidocaine patch bilateral knees, oral prn tylenol and diclofenac dose increased to 4gm with improvement. Encouraged patient to use medications to improve mobility with therapy and agreeable. PT/OT for debilitation. Await SNF, insurance approval still pending. Assessment & Plan (07/25/2019 11:17 AM CDT): Recent admission 07/10-07/19 for OA bilateral knee pain. Patient discharge with home PT/OT/jail which has not been initiated. Continue lidocaine patch bilateral knees, oral prn tylenol and diclofenac dose increased to 4gm with improvement. Encouraged patient to use medications to improve mobility with therapy and agreeable. PT/OT for debilitation. Await SNF Assessment & Plan (07/24/2019 2:04 PM CDT): Recent admission 07/10-07/19 for bilateral knee pain. Patient discharge with home PT/OT/jail which has not been initiated. -continue lidocaine patch bilateral knees -continue prn tylenol and diclofenac PT/OT for debilitation. Assessment & Plan (07/23/2019 1:55 PM CDT): Recent admission 07/10-07/19 for bilateral knee pain. Patient discharge with home PT/OT/jail which has not been initiated. -continue lidocaine patch bilateral knees -continue prn tylenol and diclofenac Assessment & Plan (07/22/2019 6:15 PM CDT): Recent admission 07/10-07/19 for bilateral knee pain. Patient discharge with home PT/OT/jail which has not been initiated. -continue lidocaine [...] 01/09/2019 Assessment & Plan (11/23/2019 5:30 PM FIELD ARTILLERY OPERATIONS MAN): Continue phos binder - phos 4.9, prior to dialysis. - patient reports previously low and discontinued sevelamer Assessment & Plan (11/23/2019 5:23 PM FIELD ARTILLERY OPERATIONS MAN): Continue phos binder - phos 4.9, prior to dialysis. - patient reports previously low and discontinued sevelamer Anemia of chronic renal failure 06/01/2018 Assessment & Plan (11/23/2019 5:29 PM FIELD ARTILLERY OPERATIONS MAN): Usually received darbopoietin on Fridays with HD. - CBC stable. Assessment & Plan (11/23/2019 5:18 PM FIELD ARTILLERY OPERATIONS MAN): Usually received darbopoietin on Fridays with HD. [...] Component Value Date HGBA1C 6.8 02/22/2022 Per [place] [employer], goal A1c is less 7% [...] etc. Assessment & Plan (11/15/2024 9:10 PM FIELD ARTILLERY OPERATIONS MAN): Overall glycemic control is within a reasonable range of control and safety. A1c 6.6% Assessment & Plan (05/12/2024 2:26 PM CDT): Glucoses a little high, but need to minimize risk of hypoglycemia. Assessment & Plan (02/08/2024 8:39 PM CDT): Glucoses very high after meals. Needs adjustments in basal and mealtime insulins. Assessment & Plan (10/26/2023 9:15 AM FIELD ARTILLERY OPERATIONS MAN): Pt ed. Stressed BG control (HbA1C<7) to [...] diabetes. Assessment & Plan (10/22/2022 12:48 PM FIELD ARTILLERY OPERATIONS MAN): Awaiting Hemoglobin A1c result; Dexcom report average [...] and she has also met with a sound assistant. Assessment & Plan (02/23/2022 10:29 AM CDT): Hemoglobin A1c decreased to 6.8%, with minimal hypoglycemia. Continue using Dexcom for continuous monitoring and low BG alarms. She is taking Lantus PM daily, consistently. She is taking Humalog with meals and using sliding scale. She plans to continue making diet changes to help lower BG. Assessment & Plan (11/18/2021 12:55 PM FIELD ARTILLERY OPERATIONS MAN): Needs adjustments in insulins, particularly with variable [...] hypoglycemia. Assessment & Plan (10/27/2020 9:01 AM FIELD ARTILLERY OPERATIONS MAN): No retinopath; pt ed BG control -annual [...] today Assessment & Plan (11/15/2024 9:09 PM FIELD ARTILLERY OPERATIONS MAN): Continue supplement, monitored by renal Assessment & [...] renal Assessment & Plan (11/18/2021 12:52 PM FIELD ARTILLERY OPERATIONS MAN): Continue supplement, monitored by renal Assessment & Plan (03/17/2021 2:38 PM CDT): Continue supplement, monitored by renal Assessment & Plan (03/06/2020 10:42 AM CDT): Continue supplement, monitored by renal Assessment & Plan (06/15/2018 7:52 AM CDT): On daily supplement, chronic renal insufficiency Pes planus 10/18/2012 JASON on CPAP 10/18/2012 Assessment & Plan (11/23/2019 5:30 PM FIELD ARTILLERY OPERATIONS MAN): Continue CPAP with sleep. - CPAP ordered Assessment & Plan (11/22/2019 10:09 PM FIELD ARTILLERY OPERATIONS MAN): Continue CPAP with sleep. - CPAP ordered [...] mask/CPAP. Sleeping well. 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 Assessment & Plan (07/27/2019 11:17 AM CDT): JASON w/ cpap at night, setting 11cmHg. Compliant with nightly mask/CPAP. Sleeping well. 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 Assessment & Plan (07/26/2019 11:43 AM CDT): JASON w/ cpap at night, setting 11cmHg. Compliant with nightly mask. Sleeping well. 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 Assessment & Plan (07/25/2019 11:19 AM CDT): JASON w/ cpap at night, setting 11cmHg. Compliant with nightly mask. Defer to PCP for nursing home weight management, with morbid obesity (BMI [...] QHS Assessment & Plan (11/23/2019 5:30 PM FIELD ARTILLERY OPERATIONS MAN): Continue Cymbalta and gabapentin Assessment & Plan (11/22/2019 10:12 PM FIELD ARTILLERY OPERATIONS MAN): Continue Cymbalta and gabapentin Assessment & Plan (08/26/2019 7:43 AM FIELD ARTILLERY OPERATIONS MAN): Clinically stable at this time Assessment & [...] panel Assessment & Plan (11/15/2024 9:09 PM FIELD ARTILLERY OPERATIONS MAN): Continue statin, optimize glycemic control. Assessment & [...] dialysis. Assessment & Plan (10/20/2022 10:17 AM FIELD ARTILLERY OPERATIONS MAN): She is taking ezetimibe 10mg, no longer [...] bleed. Assessment & Plan (11/23/2019 5:29 PM FIELD ARTILLERY OPERATIONS MAN): Continue home losartan - routine vitals Assessment & Plan (11/23/2019 5:26 PM FIELD ARTILLERY OPERATIONS MAN): Continue home losartan - routine vitals Assessment [...] on file Legal Sex Female 3:06 AM FIELD ARTILLERY OPERATIONS MAN Gender Identity Not on file Sexual Orientation [...] random (06/09/2025 8:51 AM CDT) Blood Catherine Ciafo [facility] LAB BLOOD ORDERABLE S Final Result Performing Organization Address [facility] Co de Phone Number EXTERNAL LAB * C-peptide (06/06/2025 11:25 AM CDT) Blood Catherine Ciafo [facility] LAB BLOOD ORDERABLE S Final Result Performing Organization Address [facility] Co de Phone Number EXTERNAL LAB * Diabetes Mellitus Type 1 Evaluation (06/02/2025 4:16 PM CDT) Blood Catherine Ciafo [facility] LAB BLOOD ORDERABLE S Final Result Performing Organization Address [facility] de Phone Number EXTERNAL [...] calcification, or architectural distortion in either breast. us Self Screening Mammogram IMG MAMMO PROCEDURES Fi nal Result * (ABNORMAL) POCT hemoglobin A1c (02/22/2022 10:26 AM CDT) Hemoglobin A1C, POC 6.8 Blood specimen (specimen) 02/22/2022 10:26 AM CDT Krista SEVERINO POINT OF CARE TEST ORDE RABLES Final Result * (ABNORMAL) eGFR (08/30/2021 9:53 PM FIELD ARTILLERY OPERATIONS MAN) eGFR 7(L) 90 - 130 mL/min/1.7 3 m2 [facility] Comment: Interpretive Data Reference Interval Normal >/= [...] last reviewed 2020 Blood 08/30/2021 9:53 PM FIELD ARTILLERY OPERATIONS MAN 08/31/2021 1:30 AM FIELD ART[employer]ERY OPERATIONS MAN Slava Lowe MD LAB BLOOD ORDERABLES Karlee l Result Performing Organization Address City/[facility]/ZIP Co de Phone Number [facility] Department [place] [address] * Hepatitis panel, acute (11/14/2020 10:19 AM FIELD ARTILLERY OPERATIONS MAN) Hep A IgM Nonreactive Nonreactive [facility] Comment: Interpretive Data: If Hep A IgM Ab is reported as Equivocal, a new sample should be drawn in two weeks for testing. Current interpretive data was last revised on 20. Hep B core IgM Nonreactive Nonreactive [facility] Comment: Interpretive Data If HepB Core IgM Ab is reported as Equivocal, a new sample should be drawn in two weeks for testing. Current interpretive data was last revised on 20. Hep C Ab Nonreactive Nonreactive [facility] Comment: Interpretive Data Nonreactive: Antibodies to [...] last revised on 2020. HepBsAg Nonreactive Nonreactive [facility] Blood specimen (specimen) 11/14/2020 10:19 AM FIELD ARTILLERY OPERATIONS MAN 11/14/2020 10:19 AM FIELD ARTILLERY OPERATIONS MAN us Pierce Clark MD LAB MICROBIOLOGY - GENERAL ORDERABLES Final Result [facility] [address] Department [place] [address] * COLONOSCOPY (06/04/2020 4:03 PM CDT) Anatomical Region Laterality Modality Other Narrative Procedure Note Cruzito Benitez MD - 06/04/2020 4:03 PM CDT [facility] Patient Name: Fani Horton Procedure Date: 06/04/2020 4:03 PM Date of : 1960 Admit Type: Inpatient Age: 60 Gender: Female Attending MD: Cruzito Simms M.D. Room: [facility] OR POD 5 ROOM 224 Note Status: [...] The scope was passed under direct vision.The [id number] Endoscope was introduced throughthe anus and advanced to the cecum, identified by appendiceal orifice and ileocecal valve. The colonoscopy was performed without difficulty. The patient tolerated the procedure well. The quality of the bowel preparation was evaluated using the BBPS (Rewey Bowel Preparation Scale) with scores of:Right Colon [...] procedure. Electronically signed by Cruzito Simms MD Chris WaiteD. 06/04/2020 5:08:44 PM Number of Addenda: 0 Note Initiated On: 06/04/2020 4:03 PM Recognized by the [place] [employer] for promoting quality in endoscopy Cruzito Simms MD ENDOSCOPY PROCEDURES Final Result * Lipid panel (06/03/2020 2:56 AM CDT) Cholesterol 163 30 - 199 mg/dL [facility] Comment: Interpretive Data Ages < or = [...] revised on 2018. Triglycerides 125 <=149 mg/dL [facility] Comment: Interpretive Data Ages < or = [...] on 2018. HDL 67 >=40 mg/dL [facility] Comment: Interpretive Data Ages < or = [...] 2018. LDL, calculated 71 <=129 mg/dL [facility] Comment: Interpretive Data Ages [...] MD LAB BLOOD ORDERABLES Final Result [facility] Department [place] [address] from Last 3 Months or Most Recently Relevant to Health Maintenance
--- OUTSIDE RECORDS SUMMARY | 2025-07-30 01:07 | XMS_ITS | Patient Health Record ---
Author Organization 1 OF Jose Ramon bang [facility] Address [address] [address] [place] [address] Care Team Providers Care Cyanide Pot Tender Name Role Phone Jess Fuchsgerhardmurphy Primary Care Provider Un available Juanis Gutierrez Unavailable [phone] Allergies Allergen (clinical drug ingredient) Drug/Non Drug [...] disorder associated with type II diabetes mellitus (620530744) Type 2 diabetes mellitus with other diabetic neurological complication (E11.49) Active confirmed Problem Type 2 diabetes mellitus with peripheral angiopathy (200010736) Type 2 diabetes mellitus with diabetic peripheral angiopathy without gangrene, unspecified whether usp insulin use (E11.51) Active confirmed Plan Of Treatment No Information Insurance Providers Payer Name Payer Address Payer Phone Subscriber Number Group Number Insured Name Patient Relationship to Insured Coverage Start Date Coverage End Date Medicare [address] [place], [place] [id number] Fani Horton Self - patient is the insured [facility] [address] [place] [id number] Fani Horton Self - patient is the insured Medical (General) History Medical History History ICD Code Neuropathy of Feet Arthritis Diabetes Dialysis Gout kidney disease Surgical History Surgery Date(Month/Year) Graph in Left arm -ecessive bleeding 2022
--- OUTSIDE RECORDS SUMMARY | 2025-07-30 01:07 | XMS_ITS | Clinical Summary ---
Author Organization [facility] Address [address] [place] [id number] Care Team Providers Care Lead Developer Name Role Phone Unavailable Primary Care Provider [...]
--- OUTSIDE RECORDS SUMMARY | 2025-07-30 01:07 | XMS_ITS | Clinical Summary ---
Author Organization [facility] Address [address] [place] [address] Care Team Providers Care Telecommunication Operator Name Role Phone Cory Ramirez MD Primary Care Provider Allergies Active Allergy Reactions Criticality Noted Date [...] COVID-19 Vaccine ( - 2023-2 5 season) 2025 Influenza Adult (#1) 2025 07/23/2012 RSV Immunization or 60+ Years (1 - [...] patient's age to complete this topic Insurance [facility] Care Teams Telecommunication Operator Relationship Specialty Start Date End Date Cory Ramirez MD [address] [place] [id number] PCP - General INTERNAL MEDICINE 05/28/18
[2025-07-30] MEDS: LACTATED RINGERS 1,000 ML 30 ML IV CONT (08:50)
[2025-07-30] MEDS: ACETAMINOPHEN 500 MG TABLET 1000 MG PO (09:00)
[2025-07-30 09:19] LABS: Anion Gap 10 mmol/L (4-12); Blood Urea Nitrogen 43 mg/dL (7-17); Calcium 9.5 mg/dL (8.4-10.2); Carbon Dioxide 34 mmol/L (22-30); Chloride 90 mmol/L (98-107); Estimated CRCL calculation 8 ml/min; Estimated Glomerular Filt Rate 5; Glucose 132 mg/dL (65-110); Potassium 3.8 mmol/L (3.4-5.0); Sodium 134 mmol/L (137-145)
--- NOTE | 2025-07-30 10:02 | WPDANESEPPF ---
Anes - Initial Pre Proc Eval Procedure: Operation Date: 07/30/25 10:30 Proposed Procedures p Hysteroscopy Dilation and Curettage with Removal of any Endometrial Lesion, If Necessary, - Ulises Denton MD Date/Time: 07/30/25 10:02 Surgeon: Ulises Denton MD Pre Op Diagnosis: post menopausal bleeding,thickened endometrial str Patient Data Age: 65 Gender: F Height: 1.52 m Weight: 145.7 kg Last Vital Signs Temp 36.6 C 07/30/25 08:13 Pulse 72 07/30/25 08:13 Resp 14 07/30/25 08:13 BP 127/56 L 07/30/25 08:13 Pulse Ox 100 07/30/25 08:13 O2 Del Method Room Air 07/30/25 08:13 Allergies Allergy/AdvReac Type Severity Reaction Status Date / Time atorvastatin Allergy Mild joint Verified 07/24/25 14:04 aches glipizide Allergy Mild lightheaded Verified 07/24/25 14:04 metformin Allergy Mild nausea Verified 07/24/25 14:04 rofecoxib Allergy Mild Joint Pain Verified 07/24/25 14:04 PAULINA Inhibitors AdvReac Severe lips Verified 07/24/25 14:04 swelling pravastatin AdvReac Intermediate Muscle Pain Verified 07/24/25 14:04 sevelamer (From Renvela) AdvReac Intermediate Nausea Verified 07/24/25 14:04 Home Medications ?Medication ?Instructions ?Recorded ?Confirmed ?Type ferric citrate 210 mg iron tablet 210 mg PO TID 09/08/20 07/24/25 History (Auryxia) vitamin B complex with C-folic 1 tablet PO DAILY 09/08/20 07/24/25 History acid 0.8 mg-zinc citrate 15 mg tablet (Dialyvite 800 with Zinc 15) cxnpsvkumkujcxecyasrhd-pfwgykja-exmcrrlo 1 drp ophthalmic (eye) DAILY PRN 03/23/21 07/24/25 History 80 0.5 %-1 %-0.5 % eye drops dry eye(s) (Refresh Optive Advanced) aspirin 81 mg tablet 81 mg PO DAILY 06/23/22 07/24/25 History pregabalin 50 mg capsule 50 mg PO DAILY 11/09/23 07/24/25 History acetaminophen 500 mg tablet 1,000 mg PO BID PRN Pain 03/24/25 07/24/25 History (Tylenol Extra Strength) allopurinol 100 mg tablet 100 mg PO DAILY #90 tabs 03/24/25 07/24/25 Rx compr.stocking,knee,long,x-lrg #2 ea 03/24/25 07/24/25 Rx ezetimibe 10 mg tablet (Zetia) 10 mg PO DAILY #90 tabs 03/24/25 07/24/25 Rx insulin glargine U-300 conc 300 44 unit subcut QHS 03/24/25 07/24/25 History unit/mL (3 mL) subcutaneous pen (Toujeo Max U-300 SoloStar) midodrine 5 mg tablet 5 mg PO .COMPLEX 03/24/25 07/24/25 History pantoprazole 20 mg tablet,delayed 20 mg PO QAM #90 tabs 03/24/25 07/24/25 Rx release ergocalciferol (vitamin D2) 1,250 1,250 mcg PO WEEKLY #14 caps 05/01/25 07/24/25 Rx mcg (50,000 unit) capsule betamethasone dipropionate 0.05 % 1 applic topical DAILY #45 grams 07/16/25 07/24/25 Rx topical cream insulin lispro-aabc 100 unit/mL 24 unit subcut .TID w meals PRN 07/24/25 07/24/25 History subcutaneous pen (Lyumpapiv JamiePen elevated glucose U-100 Insulin) Laboratory Tests 07/30/25 07/30/25 08:37 08:58 Sodium 134 L mmol/L (137-145) Potassium 3.8 mmol/L (3.4-5.0) Chloride 90 L mmol/L (98-107) Carbon Dioxide 34 H mmol/L (22-30) Anion Gap 10 mmol/L (4-12) BUN 43 H mg/dL (7-17) Creatinine 8.55 H mg/dL (0.7-1.0) Estim Creat Clear Calc 8 ml/min Estimated GFR 5 L (59 - ) Glucose 132 H mg/dL (65-110) POC Capillary Glucose 119 H mg/dl (65-105) Calcium 9.5 mg/dL (8.4-10.2) Patient hx anesthesia problems: none Family hx anesthesia problems: none Results Review: All pre-operative results and documents have been reviewed as part of the pre-operative evaluation. [facility] Past Medical History Medical History History of colon polyps Lymphedema of lower extremity Edema of lower extremity due to peripheral venous insufficiency Chronic low back pain Thrombosis of right internal jugular vein (~2019) due to jamie cath - resolved Mass of both breasts on mammogram COVID-19 11/2020 History of renal cell carcinoma (~2011) left Gout Type 2 diabetes mellitus without complications Skin tag (~1995) Renal cell carcinoma of left kidney (~02/14/12) Alopecia of scalp (~1988) Diabetic peripheral neuropathy associated with type 2 diabetes mellitus (~1999) End-stage renal disease on hemodialysis (~03/2019) Benign essential hypertension (~1993) JASON on CPAP (~2012) Knee osteoarthritis (~2008) Surgical History Surgical History S/P dialysis catheter insertion History of D&C (~06/2022) Hysteroscopy, dilation and curettage, endometrial polypectomy with MyoSure History of partial nephrectomy 01/2012 - left kidney mass History of dental surgery (~2016) History of colonoscopy (~2018) H/O esophagogastroduodenoscopy (~2016) H/O ventral hernia repair (~2015) S/P cholecystectomy (~1993) History of delivery (~1988) H/O breast biopsy (~2015) Family History Family History Father Diabetes mellitus Family history of cardiac disorder Family history of congestive heart failure Family history of type 2 diabetes mellitus Sibling Diabetes mellitus Family history of cardiac disorder Family history of kidney disease Family history of type 2 diabetes mellitus Mother Asthma Family history of pancreatic cancer Family history of congestive heart failure Grandparent Family history of cardiac disorder Social History Social History Social History: former smoker Smoking packs per day: 0.25 Smoking cigarettes per day: 5.0 Years smoked: 4 Smoking pack-years: 1.00 Smoking status: Former smoker Tobacco type: cigarettes Second hand tobacco smoke exposure: No Smoking end date: 01/01/80 Alcohol intake: never Substance use: never Lack of Transportation: No Lack of Food: Never True Current Housing: I Have Housing Concerned About Future Housing: No Difficulty Paying Gas/Electric Bills: No Difficulty Paying for Meds: No Currently Unemployed: YES Education: Master's Degree or Higher Difficulty w/ Childcare or Family Care: No Living arrangements: alone Occupation/Education: other Additional occupation/education comments: disabled Gender identity (if verbalized by the patient): Female Spiritual care concerns: No Agree to blood products: Yes Anes - Eval Final PreProcedure Day of Procedure 07/30/25 10:02 Patient weight: super morbidly obese Heart: regular rate and rhythm Lungs: decreased breath sounds Airway: Mallampati scale class III Neurological: alert and oriented Last oral intake: >/= 8 hours ASA classification: IV Emergent: no Anesthetic plan: proceed Anesthesia type and monitoring: general GIVS and LMA and standard monitoring Results Review: All pre-operative results and documents have been reviewed as part of the pre-operative evaluation. Informed Consent: The patient's anesthetic plan and its attendant risks and benefits were discussed with the patient/family/POA. Questions were solicited and answers provided to the satisfaction of the patient/family/POA.
--- NOTE | 2025-07-30 10:35 | WPDHPUPDATE1 ---
History and Physical Update Update Date/Time: 07/30/25 10:35 History and Physical has been reviewed, including an updated exam of the patient. There are NO changes in the patient's condition. Risks, benefits, and alternatives have been discussed and questions answered. Patient agrees to proceed with procedure.
[2025-07-30] MEDS: LIDOCAINE 1% LOCAL INJ 10 ML VIAL INFILTRATE (10:49)
[2025-07-30] MEDS: ceFAZolin 3 GM/D5W 100 ML 100 ML IVPB (10:55)
--- NOTE | 2025-07-30 11:23 | S_PTH ---
PATIENT: Fani Horton LOC: [facility] U#:[id number] AGE/SX: 65/F ROOM: RE07/30/[address]: Ulises Denton MD : 1960 BED: DIS: 07/30/2025 SPEC #: [id number] RECD: 07/30/25 13:12 STATUS: JOHN REQ #: [id number] JAMES: 07/30/25 11:[address]: Ulises Denton DEPT: [facility] Surgical RECD BY: Mitra Biggs ENTERED: 07/30/25 13:12 SP TYPE: Surgical OTHR DR: Marguerite Fuchs MD Tissues: A - Endometrial Curettings Procedures: Hematoxylin and Eosin Stain Gross and Microscopic Level 4
--- NOTE | 2025-07-30 11:31 | W.PM.PROC2 ---
Procedure Note - Detailed Date of Procedure 07/30/25 Pre-op Diagnosis post menopausal bleeding,thickened endometrial str Post-op Diagnosis Same (Endometrial polyp) Procedure Performed hysteroscopy dilation and curettage and removal of endometrial lesion Surgeon Ulises Denton MD Anesthesia MAC and Local Indications postmenopausal bleeding with thickened endometrial stripe on ultrasound and history of endometrial polyp she opted for hysteroscopy D&C for endometrial sampling and removal of lesion if present. Findings Mildly stenotic os. There was a small polyp in the upper uterine cavity the rest of the cavity was atrophic minimal tissue obtained with curettage polyp was removed completely with the Aveta instrument. Description of Procedure After informed consent was obtained patient was taken to the operating room and adequate IV sedation was administered. Attention was turned to the vagina. Speculum was inserted. Single-tooth tenaculum placed on the anterior lip of the cervix. 8 cc of 1% lidocaine was injected at the cervical vaginal interface at 2,5,8 and 10 position. The uterus was sounded to 6 cm. The cervix was dilated to an 6 Matt dilator. The hysteroscope was inserted into the cavity. The findings were of a lesion in the cavity upper. The Aveta instrument was used to remove endometrial polyp completely. A curettage was then performed with minimal tissue obtained consistent with her atrophic cavity. The hysteroscope was removed the single-tooth tenaculum was removed hemostasis was noted at the tenaculum site. Sponge count correct. The patient taken to recovery in stable condition. Estimated Blood Loss 5 Drains No Packing No Pathology Yes ( Endometrial shavings and scant curettings) Complications No immediate complications Condition Stable Disposition Same day [facility] Billing Surgery - Charge Forward: Surgery Billing
[2025-07-30] MEDS: SODIUM CHLORIDE 0.9% IV 500 ML 30 ML IV CONT (11:35)
== END 2025-07-30 13:25 | disposition home or self-care (01) ==
PROVIDERS: Anesthesiology; PCP Family Medicine; Visit Provider Obstetrics & Gynecology
PROC: 0U5B8ZZ Destruction of Endometrium, Via Natural or Artificial Opening Endoscopic (ICD-10-PCS; CPT 58563; principal; 2025-07-30 10:30)
DX: R93.89 Abnormal findings on diagnostic imaging of other specified body structures (principal); N84.0 Polyp of corpus uteri; N88.2 Stricture and stenosis of cervix uteri; D64.9 Anemia, unspecified; E11.42 Type 2 diabetes mellitus with diabetic polyneuropathy; E11.22 Type 2 diabetes mellitus with diabetic chronic kidney disease; I12.0 Hypertensive chronic kidney disease with stage 5 chronic kidney disease or end stage renal disease; N18.6 End stage renal disease; G89.29 Other chronic pain; M54.50 Low back pain, unspecified; L65.9 Nonscarring hair loss, unspecified; E66.01 Morbid (severe) obesity due to excess calories; Z68.44 Body mass index [BMI] 60.0-69.9, adult; Z79.82 Long term (current) use of aspirin; Z79.4 Long term (current) use of insulin; Z99.2 Dependence on renal dialysis; Z98.890 Other specified postprocedural states; Z90.49 Acquired absence of other specified parts of digestive tract; Z87.891 Personal history of nicotine dependence; Z86.0100 Personal history of colon polyps, unspecified; Z85.528 Personal history of other malignant neoplasm of kidney; Z80.0 Family history of malignant neoplasm of digestive organs; Z82.49 Family history of ischemic heart disease and other diseases of the circulatory system
CPT/HCPCS: 58558; 36415; 80048; 82948; 88305; A9270; J0690; J2003; J2250; J2704; J3010; J7040; J7120

== ENCOUNTER 2025-10-01 01:15 | Day surgery (SDC) | payer MEDICARE, SELFPAY ==
--- OUTSIDE RECORDS SUMMARY | 2024-04-02 03:00 | XMS_ITS ---
Author Organization 1 OF Jose Ramon [facility] Address [address] [facility] [address] [place] [address] Care Team Providers Care Commercial Real Estate Sales Manager Name Role Phone Marguerite Fuchs Primary Care Provider Un available Gutierrez Olivarez Unavailable [phone] REASON FOR VISIT DFC (Diabetic foot care) Encounters Encounter Location Date Provider Diagnosis 1 [facility] [address] [facility] [address] [place] [address] 04/02/2024 Gutierrez Olivarez Plan Of Treatment No Information Progress Notes * Fani HORTON MDOB: (65 yo F)Acc No.[id number]:04/02/2024 Progress Note Patient: Kya murdock Fani Moya Provider: Lupe Olivraez DPM :1960 A ge:64 Y S ex:Female Date:04/02/2024 Address:[address] [place], [place] [id number] Pcp:Marguerite Fuchs Subjective: * Chief Complaints: * D FC (Diabetic foot care) * Electronic signature of Gutierrez Oilvarez DPM on 10/01/2025 at 01:21 AM DRAFTER CARTOGRAPHIC Sign off status: Pending * Provider: Lupe Olivarez DPM Date: 0 04/02/2024 Generated for Printi ng/Faxing/eTransmitting on: 1 12/02/2024 01:21 AM DRAFTER CARTOGRAPHIC
[2025-09-09 14:57] VITALS: BMI 61.5
--- OUTSIDE RECORDS SUMMARY | 2025-10-01 01:19 | XMS_ITS ---
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 Assessment & Plan (10/26/2023 9:15 AM RAW SAMPLER): Defer cataract surgery until signs and symptoms indicate. Pt was educated on the diagnosis. Recommend daily UV eye protection. Assessment & Plan (10/27/2020 9:01 AM RAW SAMPLER): Not yet Visually significant; defer cataract extraction [...] rescue Assessment & Plan (11/23/2019 5:30 PM RAW SAMPLER): Due to insulin overdose (accidental) - continue to monitor as above and treat as needed per hypoglycemia protocol Assessment & Plan (11/22/2019 10:08 PM RAW SAMPLER): Due to insulin overdose (accidental) - continue to monitor as above and treat as needed per hypoglycemia protocol Cellulitis of leg, right 11/22/2019 Assessment & Plan (11/23/2019 5:30 PM RAW SAMPLER): Was seen by dermatology on 11/08/2019 at which time culture was performed. Patient has culture results which are positive for proteus mirabilis sensitive to ampicillin. She was prescribed ampicillin 500mg BID for 30 days per patient. 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 90-day Dexcom GMI 7.6%, above goal. Lab Results Component Value Date HGBA1C 6.8 02/22/2022 Per [employer], goal A1c is less 7% [...] etc. Assessment & Plan (08/26/2019 7:42 AM RAW SAMPLER): No longer requires insulin therapy now that [...] a catheter for HD in [facility]. Initially managed with eliquis but transitioned to [...] 06/26/2019 Assessment & Plan (11/23/2019 5:30 PM RAW SAMPLER): Continue allopurinol Assessment & Plan (11/22/2019 10:03 PM RAW SAMPLER): Continue allopurinol Assessment & Plan (07/16/2019 9:40 [...] safety. Assessment & Plan (11/15/2024 9:09 PM RAW SAMPLER): Managed by renal, need to minimize risk [...] hypoglycemia. Assessment & Plan (10/20/2022 10:20 AM RAW SAMPLER): Need to minimize risk of hypoglycemia. Assessment [...] hypoglycemia Assessment & Plan (11/23/2019 5:30 PM RAW SAMPLER): HD MWF Access: Last HD: 11/20 (mon). She had rescheduled her outpatient HD for today (Thursday 11/23 at 10:30am) - consult renal given elevating blood sugars, will need regimen going forward with current infection. Assessment & Plan (11/23/2019 5:20 PM RAW SAMPLER): HD MWF Access: Last HD: 11/20 (mon). She had rescheduled her outpatient HD for today (Thursday 11/23 at 10:30am) - consult renal given elevating blood sugars, will need regimen going forward with current infection. Assessment & Plan (08/26/2019 7:43 AM RAW SAMPLER): No longer requires insulin therapy. Assessment & [...] 01/09/2019 Assessment & Plan (11/23/2019 5:30 PM RAW SAMPLER): Continue phos binder - phos 4.9, prior to dialysis. - patient reports previously low and discontinued sevelamer Assessment & Plan (11/23/2019 5:23 PM RAW SAMPLER): Continue phos binder - phos 4.9, prior to dialysis. - patient reports previously low and discontinued sevelamer Anemia of chronic renal failure 06/01/2018 Assessment & Plan (11/23/2019 5:29 PM RAW SAMPLER): Usually received darbopoietin on Fridays with HD. - CBC stable. Assessment & Plan (11/23/2019 5:18 PM RAW SAMPLER): Usually received darbopoietin on Fridays with HD. [...] Fatigue 09/22/2017 Obesity 09/22/2017 Assessment & Plan (08/18/2025 12:44 PM CDT): - Declined to increase Ozempic today. Continue 0.5 mg once weekly - Discussed lifestyle modifications Assessment & Plan (02/12/2025 2:42 PM CDT): [...] (04/30/2025): 04/30/25 A1c 7.1% Assessment & Plan (08/18/2025 12:42 PM CDT): - Diabetes is complicated by neuropathy, nephropathy and other co-morbidities. Control is improving! Lab Results Component Value Date HGBA1C 6.8 02/22/2022 Per [employer], goal A1c is less 7% without significant hypoglycemia. - Management Goal: optimize glycmeic control, avoid hypoglycemia - Continue Omnipod 5 with Dexcom G7 CGM - Changes in insulin pump settings: -Decrease basal to 1.2 units/hr (total daily basal 28.8 units) -Reduced AIT to 3 hours (from 4 hours) - Discussed carbohydrate restriction today - seeing Diabetes Education. - Advised bolusing <5 minutes before each meal. - Advised annual dilated eye exam - up to date. - Advised checking blood glucose before driving - Discussed hypoglycemia risk, and treatment such as the rule of 15s and the use of glucagon. Sent. - Patient has back up insulin in case of pump failure - Update me on consistent glycemia excursions or if there is any hypoglycemia. - Advised and ensured that I am available via phone or MyChart if they have any concerns for hypo/hyperglycemia, medication refills, etc. Assessment & Plan (05/17/2025 8:42 PM CDT): [...] Component Value Date HGBA1C 6.8 02/22/2022 Per [employer] [employer], goal A1c is less 7% [...] etc. Assessment & Plan (11/15/2024 9:10 PM RAW SAMPLER): Overall glycemic control is within a reasonable range of control and safety. A1c 6.6% Assessment & Plan (05/12/2024 2:26 PM CDT): Glucoses a little high, but need to minimize risk of hypoglycemia. Assessment & Plan (02/08/2024 8:39 PM CDT): Glucoses very high after meals. Needs adjustments in basal and mealtime insulins. Assessment & Plan (10/26/2023 9:15 AM RAW SAMPLER): Pt ed. Stressed BG control (HbA1C<7) to [...] diabetes. Assessment & Plan (10/22/2022 12:48 PM RAW SAMPLER): Awaiting Hemoglobin A1c result; Dexcom report average [...] and she has also met with a water reuse program manager. Assessment & Plan (02/23/2022 10:29 AM CDT): Hemoglobin A1c decreased to 6.8%, with minimal hypoglycemia. Continue using Dexcom for continuous monitoring and low BG alarms. She is taking Lantus PM daily, consistently. She is taking Humalog with meals and using sliding scale. She plans to continue making diet changes to help lower BG. Assessment & Plan (11/18/2021 12:55 PM RAW SAMPLER): Needs adjustments in insulins, particularly with variable [...] hypoglycemia. Assessment & Plan (10/27/2020 9:01 AM RAW SAMPLER): No retinopath; pt ed BG control -annual [...] today Assessment & Plan (11/15/2024 9:09 PM RAW SAMPLER): Continue supplement, monitored by renal Assessment & [...] renal Assessment & Plan (11/18/2021 12:52 PM RAW SAMPLER): Continue supplement, monitored by renal Assessment & Plan (03/17/2021 2:38 PM CDT): Continue supplement, monitored by renal Assessment & Plan (03/06/2020 10:42 AM CDT): Continue supplement, monitored by renal Assessment & Plan (06/15/2018 7:52 AM CDT): On daily supplement, chronic renal insufficiency Pes planus 10/18/2012 JASON on CPAP 10/18/2012 Assessment & Plan (11/23/2019 5:30 PM RAW SAMPLER): Continue CPAP with sleep. - CPAP ordered Assessment & Plan (11/22/2019 10:09 PM RAW SAMPLER): Continue CPAP with sleep. - CPAP ordered [...] mask/CPAP. Sleeping well. Defer to PCP for report developer weight management & goal setting for weight loss, with morbid obesity (BMI 60) playing a role. Assessment & Plan (07/27/2019 11:17 AM CDT): JASON w/ cpap at night, setting 11cmHg. Compliant with nightly mask/CPAP. Sleeping well. Defer to PCP for report developer weight management, with morbid obesity (BMI 60) playing a role. Assessment & Plan (07/26/2019 11:43 AM CDT): JASON w/ cpap at night, setting 11cmHg. Compliant with nightly mask. Sleeping well. Defer to PCP for shelter weight management, with morbid obesity (BMI 60) playing a role. Assessment & Plan (07/25/2019 11:19 AM CDT): JASON w/ cpap at night, setting 11cmHg. Compliant with nightly mask. Defer to PCP for report developer weight management, with morbid obesity (BMI 60) [...] Diabetic peripheral neuropathy 09/20/2010 Assessment & Plan (08/18/2025 12:44 PM CDT): - Continue to optimize glycemic control - On Lyrica, following with Pain Management Assessment & Plan (06/03/2020 4:22 AM CDT): Extensive DM2 history with complications namely ESRD and peripheral neuropathy. On home gabapentin and duloxetine. - Continue gabapentin 100mg BID with breakfast and dinner - Continue duloxetine 60mg daily QHS Assessment & Plan (11/23/2019 5:30 PM RAW SAMPLER): Continue Cymbalta and gabapentin Assessment & Plan (11/22/2019 10:12 PM RAW SAMPLER): Continue Cymbalta and gabapentin Assessment & Plan (08/26/2019 7:43 AM RAW SAMPLER): Clinically stable at this time Assessment & [...] control Mixed hyperlipidemia 09/20/2010 Assessment & Plan (08/18/2025 12:39 PM CDT): - Last LDL 71 (05/2020), just above goal - Continue on Zetia 10 mg daily Assessment & Plan (05/17/2025 8:43 PM CDT): Statin intolerant, but consider alternate brand. Continue ezetimibe and optimize glycemic control Assessment & Plan (02/12/2025 2:45 PM CDT): - LDL 71 (05/2020), just above glycemic control - She is not on a statin, continue zetia 10 mg daily - Repeat lipid panel Assessment & Plan (11/15/2024 9:09 PM RAW SAMPLER): Continue statin, optimize glycemic control. Assessment & [...] dialysis. Assessment & Plan (10/20/2022 10:17 AM RAW SAMPLER): She is taking ezetimibe 10mg, no longer [...] renal d isease) 09/20/2010 Assessment & Plan (08/18/2025 12:44 PM CDT): - BP at goal today - Following with Cardiology, per patient she is scheduled for an echocardiogram tomorrow. - Continue on HD T/T/S Assessment & Plan (02/12/2025 2:44 PM CDT): [...] bleed. Assessment & Plan (11/23/2019 5:29 PM RAW SAMPLER): Continue home losartan - routine vitals Assessment & Plan (11/23/2019 5:26 PM RAW SAMPLER): Continue home losartan - routine vitals Assessment [...] 020 Assessment & Plan (11/23/2019 5:30 PM RAW SAMPLER): Off insulin since Aug 2019 due to [...] PCP. Assessment & Plan (11/23/2019 5:25 PM RAW SAMPLER): Off insulin since Aug 2019 due to [...] 04/23, plan for outpatient dialysis at [facility] - 120mg IV Lasix BID->bumex - Continue [...]
--- OUTSIDE RECORDS SUMMARY | 2025-10-01 01:19 | XMS_ITS | Clinical Summary ---
Author Organization [facility] Address [address] [place] [address] Care Team Providers Care Tape Coater Name Role Phone Chelle Espinoza MD Unavailable [phone] Marguerite Fuchs MD Primary Care Provider Aft, Cesilia Allen MD PhD Unavailable [phone] Peter Joe MD Unavailable [phone] [facility] [phone] Allergies Active Allergy Reactions Criticality Noted Date [...] medication Rofecoxib Muscle pain Medium 05/21/2019 Medications allopurinol (ZYLOPRIM) 100 mg tabletIndications:pr evention of [...] mouth daily before breakfast 07/04/20 22 Active midodrine (PROAMATINE) 5 mg tabletIndications:Sy mptomatic [...] complication, with long-term current use of insulin ([facility]) Inject 44 units under the skin daily. 42 mL 2 02/13/20 25 Active pregabalin (LYRICA) 50 mg capsuleIndications:n erve pain Take 1 capsule (50 mg total) by mouth nightly TAKE 1 CAPSULE BY MOUTH ONCE DAILY TAKE ADDITIONAL DOSE AFTER DIALYSIS ON MONDAY, AND MONDAY 120 capsule 2 05/16/20 25 Active insulin lispro-aabc (LYUMJEV) 100 unit/mL pen for injectionIndications :Type 2 diabetes mellitus with complication, with long-term current use of insulin ([facility]) Inject 24-29 units with breakfast, 38-32 units with lunch and dinner and 5 units with snacks. Max TDD 110 units daily 99 mL 2 05/20/20 25 Active semaglutide (OZEMPIC) 0.25 mg or 0.5 mg (2 mg/3 mL) pen injector injectionIndications :type 2 diabetes mellitus Inject 0.5 mg under the skin once a week 2 mL 11 07/22/20 25 Active glucagon (BAQSIMI) 3 mg/actuation spray,non-aerosolInd ications:Type 2 diabetes mellitus with complication, with long-term current use of insulin ([facility]),Insulin pump in place Administer 1 spray into one nostril as needed (severe hypoglycemia) 2 each 3 08/18/20 25 Active ergocalciferol (VITAMIN D) 50,000 unit capsule Take 1 capsule (50,000 Units total) by mouth once a week 08/06/20 25 Active traMADoL (ULTRAM) 50 mg tablet TAKE 1 TABLET BY MOUTH EVERY 12 HOURS NEEDED FOR SEVERE PAIN Active pantoprazole DR (PROTONIX) 20 mg EC tablet 09/02/20 25 Active insulin head tennis professional cart,aut,G6/7,cntr (Omnipod 5 G6-G7 Intro Kt,Gen5,) cartridgeIndications :Type 2 diabetes mellitus with complication, with long-term current use of insulin ([facility]) To change POD every 2 days 1 each 09/24/20 25 Active insulin pump cart,auto,BT,G6/7 (Omnipod 5 G6-G7 Pods, Gen 5,) cartridgeIndications :Type 2 diabetes mellitus with complication, with long-term current use of insulin (HCC) Change POD every 2 days. 45 each 3 09/24/[address] (PROTONIX) 40 mg EC tabletIndications:St ress Ulcer Prophylaxis Take 20 mg by mouth every morning Per pt. 06/12/20 18 025 Discontin ued(Dupli celeste order) insulin head tennis professional cart,aut,G6/7,cntr (Omnipod 5 G6-G7 Intro Kt,Gen5,) cartridgeIndications :Type 2 diabetes mellitus with complication, with long-term current use of insulin (HCC) To change POD every 3 days 1 each 08/28/20 25 025 Discontin ued(Reord er) insulin pump cart,auto,BT,G6/7 (Omnipod 5 G6-G7 Pods, Gen 5,) cartridgeIndications :Type 2 diabetes mellitus with complication, with long-term current use of insulin (HCC) To change POD every 2 days. MDD 75 units has to change her pod more frequently than q3 days. 45 each 3 08/28/20 25 025 Discontin ued(Reord er) insulin pump cart,auto,BT,G6/7 (Omnipod 5 G6-G7 Pods, Gen 5,) cartridgeIndications :Type 2 diabetes mellitus with complication, with long-term current use of insulin (HCC) Change POD every 2 days. 45 each 3 09/02/20 25 025 Discontin ued(Reord er) insulin head tennis professional cart,aut,G6/7,cntr (Omnipod 5 G6-G7 Intro Kt,Gen5,) cartridgeIndications :Type 2 diabetes mellitus with complication, with long-term current use of insulin (HCC) To change POD every 2 days 1 each 09/02/20 25 025 Discontin ued(Reord er) Active Problems Problem Noted Date Diagnosed Date Spondylosis of lumbar region without myelopathy or radiculopathy 10/07/2022 Cluneal neuropathy 07/21/2022 Lumbar radicular pain 04/19/2022 Has immunity to COVID-19 virus 11/11/2021 Overview (11/11/2021): Flipboard vaccine 10/09/2021, 03/03/2021, 02/10/2021 Assessment & Plan (11/11/2021 12:12 PM MANAGER INTRANET): Pfizer vaccine 10/09/2021, 03/03/2021, 02/10/2021 Abnormal findings on diagnostic imaging of brealexandria t 11/09/2021 Sacroiliitis (CMS/HCC) - Bilateral 05/11/2021 Primary osteoarthritis of both knees 04/20/2021 Chronic low back pain 03/03/2021 Pneumonia due to COVID-19 virus 11/14/2020 COVID-19 11/14/2020 Combined 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 Not visually significant, recommend UV protection. Monitor. Assessment & Plan (10/26/2023 9:15 AM MANAGER INTRANET): Defer cataract surgery until signs and symptoms indicate. Pt was educated on the diagnosis. Recommend daily UV eye protection. Assessment & Plan (10/27/2020 9:01 AM MANAGER INTRANET): Not yet Visually significant; defer cataract extraction [...] rescue Assessment & Plan (11/23/2019 5:30 PM MANAGER INTRANET): Due to insulin overdose (accidental) - continue to monitor as above and treat as needed per hypoglycemia protocol Assessment & Plan (11/22/2019 10:08 PM MANAGER INTRANET): Due to insulin overdose (accidental) - continue to monitor as above and treat as needed per hypoglycemia protocol Cellulitis of leg, right 11/22/2019 Assessment & Plan (11/23/2019 5:30 PM MANAGER INTRANET): Was seen by dermatology on 11/08/2019 at which time culture was performed. Patient has culture results which are positive for proteus mirabilis sensitive to ampicillin. She was prescribed ampicillin 500mg BID for 30 days per patient. 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 90-day Dexcom GMI 7.6%, above goal. Lab Results Component Value Date HGBA1C 6.8 02/22/2022 Per [place], goal A1c is less 7% [...] etc. Assessment & Plan (08/26/2019 7:42 AM MANAGER INTRANET): No longer requires insulin therapy now that [...] 10/2019. Had a catheter for HD in [facility]. Initially managed with eliquis but [...] 06/26/2019 Assessment & Plan (11/23/2019 5:30 PM MANAGER INTRANET): Continue allopurinol Assessment & Plan (11/22/2019 10:03 PM MANAGER INTRANET): Continue allopurinol Assessment & Plan (07/16/2019 9:40 AM CDT): - Cont home allopurinol, no roland evidence of acute gout attack Assessment & Plan (07/11/2019 5:22 PM CDT): - Cont home allopurinol, no rolnad evidence of acute gout attack Assessment & [...] safety. Assessment & Plan (11/15/2024 9:09 PM MANAGER INTRANET): Managed by renal, need to minimize risk [...] hypoglycemia. Assessment & Plan (10/20/2022 10:20 AM MANAGER INTRANET): Need to minimize risk of hypoglycemia. Assessment [...] hypoglycemia Assessment & Plan (11/23/2019 5:30 PM MANAGER INTRANET): HD MWF Access: Last HD: 11/20 (mon). She had rescheduled her outpatient HD for today (Thursday 11/23 at 10:30am) - consult renal given elevating blood sugars, will need regimen going forward with current infection. Assessment & Plan (11/23/2019 5:20 PM MANAGER INTRANET): HD MWF Access: Last HD: 11/20 (wed). She had rescheduled her outpatient HD for today (Thursday 11/23 at 10:30am) - consult renal given elevating blood sugars, will need regimen going forward with current infection. Assessment & Plan (08/26/2019 7:43 AM MANAGER INTRANET): No longer requires insulin therapy. Assessment & [...] 01/09/2019 Assessment & Plan (11/23/2019 5:30 PM MANAGER INTRANET): Continue phos binder - phos 4.9, prior to dialysis. - patient reports previously low and discontinued sevelamer Assessment & Plan (11/23/2019 5:23 PM MANAGER INTRANET): Continue phos binder - phos 4.9, prior to dialysis. - patient reports previously low and discontinued sevelamer Anemia of chronic renal failure 06/01/2018 Assessment & Plan (11/23/2019 5:29 PM MANAGER INTRANET): Usually received darbopoietin on Fridays with HD. - CBC stable. Assessment & Plan (11/23/2019 5:18 PM MANAGER INTRANET): Usually received darbopoietin on Fridays with HD. [...] Component Value Date HGBA1C 6.8 02/22/2022 Per [place], goal A1c is less 7% [...] Component Value Date HGBA1C 6.8 02/22/2022 Per [place], goal A1c is less 7% [...] etc. Assessment & Plan (11/15/2024 9:10 PM MANAGER INTRANET): Overall glycemic control is within a reasonable range of control and safety. A1c 6.6% Assessment & Plan (05/12/2024 2:26 PM CDT): Glucoses a little high, but need to minimize risk of hypoglycemia. Assessment & Plan (02/08/2024 8:39 PM CDT): Glucoses very high after meals. Needs adjustments in basal and mealtime insulins. Assessment & Plan (10/26/2023 9:15 AM MANAGER INTRANET): Pt ed. Stressed BG control (HbA1C<7) to [...] diabetes. Assessment & Plan (10/22/2022 12:48 PM MANAGER INTRANET): Awaiting Hemoglobin A1c result; Dexcom report average [...] and she has also met with a monorail helper. Assessment & Plan (02/23/2022 10:29 AM CDT): Hemoglobin A1c decreased to 6.8%, with minimal hypoglycemia. Continue using Dexcom for continuous monitoring and low BG alarms. She is taking Lantus PM daily, consistently. She is taking Humalog with meals and using sliding scale. She plans to continue making diet changes to help lower BG. Assessment & Plan (11/18/2021 12:55 PM MANAGER INTRANET): Needs adjustments in insulins, particularly with variable [...] hypoglycemia. Assessment & Plan (10/27/2020 9:01 AM MANAGER INTRANET): No retinopath; pt ed BG control -annual [...] today Assessment & Plan (11/15/2024 9:09 PM MANAGER INTRANET): Continue supplement, monitored by renal Assessment & [...] renal Assessment & Plan (11/18/2021 12:52 PM MANAGER INTRANET): Continue supplement, monitored by renal Assessment & Plan (03/17/2021 2:38 PM CDT): Continue supplement, monitored by renal Assessment & Plan (03/06/2020 10:42 AM CDT): Continue supplement, monitored by renal Assessment & Plan (06/15/2018 7:52 AM CDT): On daily supplement, chronic renal insufficiency Pes planus 10/18/2012 JASON on CPAP 10/18/2012 Assessment & Plan (11/23/2019 5:30 PM MANAGER INTRANET): Continue CPAP with sleep. - CPAP ordered Assessment & Plan (11/22/2019 10:09 PM MANAGER INTRANET): Continue CPAP with sleep. - CPAP ordered [...] mask/CPAP. Sleeping well. Defer to PCP for shelter weight management & goal setting for weight loss, with morbid obesity (BMI 60) playing a role. Assessment & Plan (07/27/2019 11:17 AM CDT): JASON w/ cpap at night, setting 11cmHg. Compliant with nightly mask/CPAP. Sleeping well. Defer to PCP for shelter [...] with nightly mask. 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 Assessment & [...] dialysis. Assessment & Plan (10/20/2022 10:17 AM MANAGER INTRANET): She is taking ezetimibe 10mg, no longer [...] bleed. Assessment & Plan (11/23/2019 5:29 PM MANAGER INTRANET): Continue home losartan - routine vitals Assessment & Plan (11/23/2019 5:26 PM MANAGER INTRANET): Continue home losartan - routine vitals Assessment [...] 020 Assessment & Plan (11/23/2019 5:30 PM MANAGER INTRANET): Off insulin since Aug 2019 due to [...] PCP. Assessment & Plan (11/23/2019 5:25 PM MANAGER INTRANET): Off insulin since Aug 2019 due to [...] line 04/23, plan for outpatient dialysis at [facility] - 120mg IV Lasix BID->bumex [...] Encounters Date Type Department Care Team Description 09/08/2025 7:42 AM MANAGER INTRANET - 09/08/2025 11:59 PM MANAGER INTRANET Hospital Encounter [facility] at the [facility] Medicine [facility] [address] [place] [address] Rn, [facility] Diabetic peripheral neuropathy (Primary Dx) Discharge Disposition: Discharge to home or self care 09/03/2025 Telephone [facility] at the [facility] Advanced Medicine [address] [facility] [address] [place] [address] Ana Paula Quesada RN [facility] Preprocedure 09/02/2025 Orders Only [facility] Endocrinology Metabolism and Lipid [address] [place] [address] 13th [place] [address] [place] [address] Jackie Moore NP Type 2 diabetes mellitus with complication, with long-term current use of insulin (HCC) 09/01/2025 Telephone [facility] Endocrinology Metabolism and Lipid [address] [place] [address] Chio Gomez RMA Medication Clarification 08/21/2025 Telephone [facility] Endocrinology Metabolism and Lipid [address] [address] Chio Gomez RMA DONNA (ASPN) 08/18/2025 3:00 PM CDT Clinical Support [facility] Endocr[facility] Metabolism and Lipid [address] [address] Shelia Robbins RN Type 2 diabetes mellitus with complication, with long-term current use of insulin (HCC) (Primary Dx); Corns and callosities 08/18/2025 1:00 PM CDT Clinical Support [facility] Endocrinology Metabolism and Lipid [address] [address] Type 2 diabetes mellitus with complication, with long-term current use of insulin (HCC) (Primary Dx) 08/18/2025 11:30 AM CDT Office Visit [facility] Endocrinology Metabolism and Lipid [address] [address] Catherine Duncan PA Type 2 diabetes mellitus with complication, with long-term current use of insulin (HCC) (Primary Dx); Benign hypertension with ESRD (end-stage renal disease) (HCC); Mixed hyperlipidemia; Diabetic peripheral neuropathy; Class 3 severe obesity due to excess calories with serious comorbidity and body mass index (BMI) of 60.0 to 69.9 in adult; Insulin pump in place 07/25/2025 10:00 AM CDT Clinical Support [facility] Endocr[facility]ology Metabolism and Lipid [address] [address] Type 2 diabetes mellitus with complication, with long-term current use of insulin (HCC) (Primary Dx) 07/24/2025 Telephone [facility] Endocrinology Metabolism and Lipid [address] [facility] [address] [place] [address] [place] [address] 07/22/2025 Orders Only [facility] Endocrinology Metabolism and Lipid [address] [facility] [address] [place] [address] [place] [address] Chio Gomez RMA Type 2 diabetes mellitus with complication, with long-term current use of insulin (HCC) 07/14/2025 9:00 AM CDT - 07/14/2025 11:59 PM CDT Hospital Encounter [facility] at the [facility] [address] [facility] [address] [place] [address] Jane Franklin NP Diabetic peripheral neuropathy (HCC) (Primary Dx); Chronic pain of both knees; Chronic low back pain without sciatica, unspecified back pain laterality Discharge Disposition: Discharge to home or self care 07/07/2025 Telephone [facility] Endocrinology Metabolism and Lipid [address] [facility] [address] [place] [address] [place] [address] Maria Dolores Tabares, DAVID DONNA tandem from Last 3 Months Immunizations Immunization Administration Dates Next Due Influenza, Quadrivalent, Spl it, Preservative Free, Intramuscular 08/08/2019 Influenza, Trivalent, IM (MDV) 11/14/2015,2012 Influenza, Trivalent, Preser vative Free, Intramuscular 07/23/2012 Influenza, Unspecified 07/31/2023,07/31/2020 Darrius (J&J) SARS-CoV-2 Vaccination 08/01/2023 MMR 09/14/2015,08/14/2015 Pfizer SARS-CoV-2 Monovalent Vaccination (12+ Yrs) PURPLE 10/09/2021,03/03/2021,02/10/2021 Pneumococcal Polysaccharide PPV23 10/18/2020,10/2011,11/19/2010 Tdap 08/14/2015 Surgical History Surgery Date Site/Laterality Comments [place] DELIVERY ONLY 10/23/1988 - 10/22/1989 Section - (Added by TW Conv) [place] CHOLECYSTECTOMY 10/23/2013 - 10/22/2014 Cholecystectomy - 1993 (Added by TW Conv) COLONOSCOPY 10/23/2019 - 10/22/2020 Complete Colonoscopy - (Added by TW Conv) PARTIAL NEPHRECTOMY 10/23/2011 - 10/22/2012 Left Kidney Surgery Laparoscopic Partial Nephrectomy - left 02/14/2012 (Added by TW Conv) [place] UNLISTED PROCEDURE DENTOALVEOLAR STRUCTURES Oral Surgery Tooth Extraction - (Added by TW Conv) TUNNELED LINE PLACEMENT > 5 YEARS 04/23/2019 N/A [place] REPAIR FIRST ABDOMINAL WALL HERNIA 10/23/2015 - [...] prolapse Brother 1 Diabetes Brother 2 Steve Perez Jr Heart attack Brother 2 Steve Perez Jr Heart disease Brother 2 Steve Young [...] 2 Steve Perez Jr Alive Father Steve Young Sr Maternal Grandfather Yevgeniy Mcgee Alive Mother Rosalia Youmg Mother's Sister Other 1 Other 2 Other 3 Other 4 Other 5 Other 6 Other 7 Paternal Grandmother Social History Tobacco Use Types Packs/Day Years Used Date Smoking Tobacco: Former Cigarettes 0.3 10 1 8 - 1987 Smokeless Tobacco: Never Tobacco Cessation:Counseling [...] on file Legal Sex Female 3:06 AM MANAGER INTRANET Gender Identity Not on file Sexual Orientation Not on file Obstetrics History Para Term AB IAB SAB Ectopic Multiple Livin g Live Births 1 1 Date Outcome GA Total Labor Labor/2nd/3rd Weight Sex Type Anes PTL Nga A1 A5 Name Clin Last Filed Vital Signs Vital Sign Reading Time Taken Comments Blood Pressure 146/67 09/08/2025 9:00 AM MANAGER INTRANET Pulse 92 09/08/2025 9:00 AM MANAGER INTRANET Temperature 36.3 C (97.3 F) 09/08/2025 7:59 AM MANAGER INTRANET Respiratory Rate 18 09/08/2025 9:00 AM MANAGER INTRANET Oxygen Saturation 91% 09/08/2025 9:00 AM MANAGER INTRANET Inhaled Oxygen Concentration - - Weight 143.2 kg (315 lb 11.2 oz) 09/08/2025 7:59 AM MANAGER INTRANET Height 152.4 cm (5') 09/08/2025 7:59 AM MANAGER INTRANET Body Mass Index 61.66 09/08/2025 7:59 AM MANAGER INTRANET Plan of Treatment Health Maintenance Due Date [...] exists Well Visit 65+ 2023 Covid-19 Vaccine ( - 2024- 6 season) 2025 08/01/2023, 10/09/2021, 03/03/2021, Additional history exists Influenza Vaccine (#1) 2025 , 08/06/2021, 07/31/2020, Additional history exists DTaP/Tdap/Td Vaccine (2 - [...] Care Plan Chronic Care Management On track(2024 8:08 AM MANAGER INTRANET) Ana Paula Hoff RN Note: Problem: Chronic Pain Goals: 1. Minimize further functional decline 2. Maximize quality of life 3. Control pain Strategies: - Activity/exercise program recommendation - Conservative stepwise pain medicine strategy with multi-disciplinary approach - Recommend healthy lifestyle strategies and compensatory methods as needed Medical Devices Implanted Type Area Equity Manager Device Identifier Shelf Expiration Date Model / Serial / Lot [employer] [id number] 4-7mm 45cm 10cm Removable Ring Line Standard [employer] Mechanic Graft - [id number] - [id number] Implanted:Qty: 1 on 05/28/2019 by Pj Toure MD at [facility] Other - see comments Left: Arm [employer] [id number] 03/31/2024 [id number] / [id number] / Description:Left AV Graft [employer] Viabahn 7mm 5cm 120cm Delivery System Superficial Femoral Artery [id number] - [id number] - [id number] Implanted:Qty: 1 on 08/30/2024 by Pj Toure MD at [facility] Stent Left: Arm [employer] [id number] 03/26/2027 [id number] / [id number] / Procedures Procedure Name Priority Date/Time Associated Diagnosis Comments POCT GLUCOSE 93470 Routine 08/18/2025 11 :44 AM CDT Type 2 diabetes mellitus with complication, with long-term current use of insulin (HCC) SCREENING MAMMOGRAM BILATERAL W KODAK Schedule Routine, Read Routine (OP Routine) 05/26/2025 9:00 AM CDT Screening mammogram, encounter for POCT HEMOGLOBIN A1C Routine 02/22/2022 1 0:26 AM CDT Type 2 diabetes mellitus with complication, with long-term current use of insulin (HCC) EGFR STAT 08/30/2021 9:53 PM MANAGER INTRANET HEPATITIS PANEL, ACUTE STAT 11/14/2020 10:19 AM MANAGER INTRANET COLONOSCOPY 06/04/2020 4:03 PM CDT LIPID PANEL STAT 06/03/2020 2:56 AM CDT from Last 3 Months or Most Recently Relevant to Health Maintenance Results * POCT glucose (08/18/2025 11:44 AM CDT) Glucose Blood, POC 173 Normal Fasting 70 - 100, Random <200 mg/dL Blood 08/18/2025 11:4 4 AM CDT Catherine Cain [facility] POINT OF CARE TEST ORDERABLES Final Result * Screening Mammogram Bilateral W Kodak (05/26/2025 [...] Blood specimen (specimen) 02/22/2022 10:26 AM CDT us Krista SEVERINO POINT OF CARE TEST ORDArabella RODRIGUEZ Final Result * (ABNORMAL) eGFR (08/30/2021 9:53 PM MANAGER INTRANET) eGFR 7(L) 90 - 130 mL/min/1.7 3 m2 [facility] Comment: Interpretive Data Reference Interval Normal [...] last reviewed 2020 Blood 08/30/2021 9:53 PM MANAGER INTRANET 08/31/2021 1:30 AM MANAGER INTRANET us Slava Lowe MD LAB BLOOD ORDERABLES Karlee mckeon Result [facility] Department [place] [address] * Hepatitis panel, acute (11/14/2020 10:19 AM MANAGER INTRANET) Pathologist [facility] Hep A IgM Nonreactive Nonreactive [facility] Comment: Interpretive Data: If Hep A IgM Ab is reported as Equivocal, a new sample should be drawn in two weeks for testing. Current interpretive data was last revised on 20. Hep B core IgM Nonreactive Nonreactive [facility] Comment: Interpretive Data If HepB [...] last revised on 2020. HepBsAg Nonreactive Nonreactive [facility] Blood specimen (specimen) 11/14/2020 10:19 AM MANAGER INTRANET 11/14/2020 10:19 AM MANAGER INTRANET us Pierce Clark MD LAB MICROBIOLOGY - GENERAL ORDERABLES Final Result [facility] [address] Department [place] [address] * COLONOSCOPY (06/04/2020 4:03 PM CDT) Anatomical Region Laterality Modality Other Narrative Procedure Note Cruzito Benitez MD - 06/04/2020 4:03 PM CDT [facility] Patient Name: Fani Horton Procedure Date: 06/04/2020 4:03 PM Date of : 1960 Admit Type: Inpatient Age: 60 Gender: Female Attending MD: Cruzito Simms M.D. Room: [facility] OR POD 5 ROOM 224 Note [...] The scope was passed under direct vision.The [id number] Endoscope was introduced throughthe anus and advanced to the cecum, identified by appendiceal orifice and ileocecal valve. The colonoscopy was performed without difficulty. The patient tolerated the procedure well. The quality of the bowel preparation was evaluated using the BBPS (Sumner Bowel Preparation Scale) with scores of:Right Colon [...] On: 06/04/2020 4:03 PM Recognized by the [place] [employer] for promoting quality in endoscopy Cruzito Simms MD ENDOSCOPY PROCEDURES Final Result * Lipid panel (06/03/2020 2:56 AM CDT) Cholesterol 163 30 - 199 mg/dL [facility] Comment: Interpretive Data Ages < or [...] on 2018. Triglycerides 125 <=149 mg/dL [facility] Comment: Interpretive Data Ages < or [...] on 2018. HDL 67 >=40 mg/dL [facility] Comment: Interpretive Data Ages [...] 2018. LDL, calculated 71 <=129 mg/dL [facility] Comment: Interpretive Data Ages < or [...] on 2018. Non-HDL Cholesterol 96 mg/dL [facility] [facility] Comment: Interpretive Data Ages < or [...] revised on 2018. Chol/HDL ratio 2 [facility] Blood specimen (specimen) 06/03/2020 2:56 AM CDT 06/03/2020 3:07 AM CDT Terence Mayen MD LAB BLOOD ORDERABLES Final Result [facility] Department [place] [address] from Last 3 Months or Most Recently Relevant to Health Maintenance Insurance MEDICARE [facility] [place] C[place] [facility] MEDICARE SUPPLEMENT INSURANCE [place] MED[place] [facility] Advance Directives For more information, please contact: [phone] Documents on File Type Date Recorded Patient Store Sales Consultant Expl anation ADVANCE DIRECTIVE 05/31/2019 5:52 AM POWER OF REGISTERED CLIENT ASSOCIATE-MEDICAL ADVANCE DIRECTIVE 04/30/2019 7:33 PM POWER OF REGISTERED CLIENT ASSOCIATE-MEDICAL ADVANCE DIRECTIVE 04/24/2019 2:54 PM POWER OF REGISTERED CLIENT ASSOCIATE-MEDICAL * Full Code (Latest Code Status on [...] 6:22 PM 06/04/2020 2:56 PM Care Teams Tape Coater Relationship Specialty Start Date End Date Marguerite Fuchs MD PCP - General Family Practice 10/27/20 Chelle Espinoza MD Referring Physician Endocrinology Diabetes & Metabolism 03/06/20 Aft, Cesilia Allen MD PhD Surgeon Surgical Oncology 11/18/21 [place] [address] [facility] [address] [place] [address] Consulting Physician Nephrology 05/12/24 Catherine Duncan PA [address] [facility], [address] [address] Physician Electronic Assembler Group Leader Physician Electronic Assembler Group Leader 05/17/25
--- OUTSIDE RECORDS SUMMARY | 2025-10-01 01:19 | XMS_ITS ---
Author Organization [facility] Address [address] [place] [address] Care Team Providers Care Migratory Farm Hand Name Role Phone Chelle Espinoza MD Unavailable [phone] Marguerite Fuchs MD Primary Care Provider Aft, Cesilia Allen MD PhD Unavailable Peter Joe MD Unavailable [phone] [facility] Un[facility] [phone] Dialysis Access Sites Type Status Location Placement Date Removal Da te AV graft Active Left Upper Arm - Anterior 05/28/2019 Hemodialysis Catheter Tunneled catheter Internal Jugular Inactive Right Neck (side) - Anterior 04/23/2019 07/18/2019 Hemodialysis Cath Triple Inactive Right N ander (side) - Anterior 04/19/2019 04/23/2019 Procedures Procedure Name Priority Date/Time Associated Diagnosis Comments POCT GLUCOSE 33558 Routine 08/18/2025 11 :44 AM CDT Type [...] insulin (HCC) EGFR STAT 08/30/2021 9:53 PM TRAIN CONTROL ELECTRONIC TECHNICIAN HEPATITIS PANEL, ACUTE STAT 11/14/2020 10:19 AM TRAIN CONTROL ELECTRONIC TECHNICIAN COLONOSCOPY 06/04/2020 4:03 PM CDT LIPID PANEL [...] complication, with long-term current use of insulin ([facility]) Use with insulin injections 4 times daily [...] complication, with long-term current use of insulin ([facility]) Inject 44 units under the skin daily. [...] complication, with long-term current use of insulin ([facility]) Inject 24-29 units with breakfast, 38-32 units [...] complication, with long-term current use of insulin ([facility]),Insulin pump in place Administer 1 spray into [...] mg EC tablet 09/02/20 25 Active insulin bingo usher cart,aut,G6/7,cntr (Omnipod 5 G6-G7 Intro Kt,Gen5,) cartridgeIndications :Type 2 diabetes mellitus with complication, with long-term current use of insulin ([facility]) To change POD every 2 days 1 each 09/24/20 25 Active insulin pump cart,auto,BT,G6/7 (Omnipod 5 G6-G7 Pods, Gen 5,) cartridgeIndications :Type 2 diabetes mellitus with complication, with long-term current use of insulin ([facility]) Change POD every 2 days. 45 each 3 09/24/[address] (PROTONIX) 40 mg EC tabletIndications:St ress Ulcer Prophylaxis Take 20 mg by mouth every morning Per pt. 06/12/20 18 025 Discontin ued(Dupli celeste order) insulin bingo usher cart,aut,G6/7,cntr (Omnipod 5 G6-G7 Intro Kt,Gen5,) cartridgeIndications :Type 2 diabetes mellitus with complication, with long-term current use of insulin ([facility]) To change POD every 3 days 1 [...] 09/02/20 25 025 Discontin ued(Reord er) insulin bingo usher cart,aut,G6/7,cntr (Omnipod 5 G6-G7 Intro Kt,Gen5,) cartridgeIndications [...] 02/10/2021 Assessment & Plan (11/11/2021 12:12 PM TRAIN CONTROL ELECTRONIC TECHNICIAN): Pfizer vaccine 10/09/2021, 03/03/2021, 02/10/2021 Abnormal findings [...] Monitor. Assessment & Plan (10/26/2023 9:15 AM TRAIN CONTROL ELECTRONIC TECHNICIAN): Defer cataract surgery until signs and symptoms indicate. Pt was educated on the diagnosis. Recommend daily UV eye protection. Assessment & Plan (10/27/2020 9:01 AM TRAIN CONTROL ELECTRONIC TECHNICIAN): Not yet Visually significant; defer cataract extraction [...] rescue Assessment & Plan (11/23/2019 5:30 PM TRAIN CONTROL ELECTRONIC TECHNICIAN): Due to insulin overdose (accidental) - continue to monitor as above and treat as needed per hypoglycemia protocol Assessment & Plan (11/22/2019 10:08 PM TRAIN CONTROL ELECTRONIC TECHNICIAN): Due to insulin overdose (accidental) - continue to monitor as above and treat as needed per hypoglycemia protocol Cellulitis of leg, right 11/22/2019 Assessment & Plan (11/23/2019 5:30 PM TRAIN CONTROL ELECTRONIC TECHNICIAN): Was seen by dermatology on 11/08/2019 at which time culture was performed. Patient has culture results which are positive for proteus mirabilis sensitive to ampicillin. She was prescribed ampicillin 500mg BID for 30 days per patient. - Continue ampicillin 500mg BID while inpatient Assessment & Plan (11/22/2019 10:49 PM TRAIN CONTROL ELECTRONIC TECHNICIAN): Was seen by dermatology on 11/08/2019 at [...] be further evaluated by US Pt has floor layer helper and has appointment coming up This finding was discussed and she will follow up with them Diabetes mellitus 07/10/2019 Assessment & Plan (08/13/2024 12:40 PM CDT): - Diabetes is complicated by neuropathy, end-stage renal disease on hemodialysis, hypertension, hyperlipidemia and obesity. 90-day Dexcom GMI 7.6%, above goal. Lab Results Component Value Date HGBA1C 6.8 02/22/2022 Per [place], goal A1c is less 7% [...] etc. Assessment & Plan (08/26/2019 7:42 AM TRAIN CONTROL ELECTRONIC TECHNICIAN): No longer requires insulin therapy now that [...] 10/2019. Had a catheter for HD in [facility]. Initially managed with eliquis but [...] 06/26/2019 Assessment & Plan (11/23/2019 5:30 PM TRAIN CONTROL ELECTRONIC TECHNICIAN): Continue allopurinol Assessment & Plan (11/22/2019 10:03 PM TRAIN CONTROL ELECTRONIC TECHNICIAN): Continue allopurinol Assessment & Plan (07/16/2019 9:40 [...] safety. Assessment & Plan (11/15/2024 9:09 PM TRAIN CONTROL ELECTRONIC TECHNICIAN): Managed by renal, need to minimize risk [...] hypoglycemia. Assessment & Plan (10/20/2022 10:20 AM TRAIN CONTROL ELECTRONIC TECHNICIAN): Need to minimize risk of hypoglycemia. Assessment [...] hypoglycemia Assessment & Plan (11/23/2019 5:30 PM TRAIN CONTROL ELECTRONIC TECHNICIAN): HD MWF Access: Last HD: 11/20 (mon). She had rescheduled her outpatient HD for today (Thursday 11/23 at 10:30am) - consult renal given elevating blood sugars, will need regimen going forward with current infection. Assessment & Plan (11/23/2019 5:20 PM TRAIN CONTROL ELECTRONIC TECHNICIAN): HD MWF Access: Last HD: 11/20 (mon). She had rescheduled her outpatient HD for today (Thursday 11/23 at 10:30am) - consult renal given elevating blood sugars, will need regimen going forward with current infection. Assessment & Plan (08/26/2019 7:43 AM TRAIN CONTROL ELECTRONIC TECHNICIAN): No longer requires insulin therapy. Assessment & [...] 01/09/2019 Assessment & Plan (11/23/2019 5:30 PM TRAIN CONTROL ELECTRONIC TECHNICIAN): Continue phos binder - phos 4.9, prior to dialysis. - patient reports previously low and discontinued sevelamer Assessment & Plan (11/23/2019 5:23 PM TRAIN CONTROL ELECTRONIC TECHNICIAN): Continue phos binder - phos 4.9, prior to dialysis. - patient reports previously low and discontinued sevelamer Anemia of chronic renal failure 06/01/2018 Assessment & Plan (11/23/2019 5:29 PM TRAIN CONTROL ELECTRONIC TECHNICIAN): Usually received darbopoietin on Fridays with HD. - CBC stable. Assessment & Plan (11/23/2019 5:18 PM TRAIN CONTROL ELECTRONIC TECHNICIAN): Usually received darbopoietin on Fridays with HD. [...] Component Value Date HGBA1C 6.8 02/22/2022 Per [place], goal A1c is less 7% [...] that I am available via phone or [employer] if they have any concerns for hypo/hyperglycemia, [...] Component Value Date HGBA1C 6.8 02/22/2022 Per [place], goal A1c is less 7% [...] that I am available via phone or [employer] if they have any concerns for hypo/hyperglycemia, medication refills, etc. Assessment & Plan (11/15/2024 9:10 PM TRAIN CONTROL ELECTRONIC TECHNICIAN): Overall glycemic control is within a reasonable range of control and safety. A1c 6.6% Assessment & Plan (05/12/2024 2:26 PM CDT): Glucoses a little high, but need to minimize risk of hypoglycemia. Assessment & Plan (02/08/2024 8:39 PM CDT): Glucoses very high after meals. Needs adjustments in basal and mealtime insulins. Assessment & Plan (10/26/2023 9:15 AM TRAIN CONTROL ELECTRONIC TECHNICIAN): Pt ed. Stressed BG control (HbA1C<7) to [...] diabetes. Assessment & Plan (10/22/2022 12:48 PM TRAIN CONTROL ELECTRONIC TECHNICIAN): Awaiting Hemoglobin A1c result; Dexcom report average [...] and she has also met with a supervising producer. Assessment & Plan (02/23/2022 10:29 AM CDT): Hemoglobin A1c decreased to 6.8%, with minimal hypoglycemia. Continue using Dexcom for continuous monitoring and low BG alarms. She is taking Lantus PM daily, consistently. She is taking Humalog with meals and using sliding scale. She plans to continue making diet changes to help lower BG. Assessment & Plan (11/18/2021 12:55 PM TRAIN CONTROL ELECTRONIC TECHNICIAN): Needs adjustments in insulins, particularly with variable [...] hypoglycemia. Assessment & Plan (10/27/2020 9:01 AM TRAIN CONTROL ELECTRONIC TECHNICIAN): No retinopath; pt ed BG control -annual [...] today Assessment & Plan (11/15/2024 9:09 PM TRAIN CONTROL ELECTRONIC TECHNICIAN): Continue supplement, monitored by renal Assessment & [...] renal Assessment & Plan (11/18/2021 12:52 PM TRAIN CONTROL ELECTRONIC TECHNICIAN): Continue supplement, monitored by renal Assessment & Plan (03/17/2021 2:38 PM CDT): Continue supplement, monitored by renal Assessment & Plan (03/06/2020 10:42 AM CDT): Continue supplement, monitored by renal Assessment & Plan (06/15/2018 7:52 AM CDT): On daily supplement, chronic renal insufficiency Pes planus 10/18/2012 JASON on CPAP 10/18/2012 Assessment & Plan (11/23/2019 5:30 PM TRAIN CONTROL ELECTRONIC TECHNICIAN): Continue CPAP with sleep. - CPAP ordered Assessment & Plan (11/22/2019 10:09 PM TRAIN CONTROL ELECTRONIC TECHNICIAN): Continue CPAP with sleep. - CPAP ordered [...] mask/CPAP. Sleeping well. Defer to PCP for prison weight management & goal setting for weight loss, with morbid obesity (BMI 60) playing a role. Assessment & Plan (07/27/2019 11:17 AM CDT): JASON w/ cpap at night, setting 11cmHg. Compliant with nightly mask/CPAP. Sleeping well. 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 Assessment & Plan (07/26/2019 11:43 AM CDT): JASON w/ cpap at night, setting 11cmHg. Compliant with nightly mask. Sleeping well. 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 Assessment & Plan (07/25/2019 11:19 AM CDT): JASON w/ cpap at night, setting 11cmHg. Compliant with nightly mask. Defer to PCP for prison weight management, with morbid obesity (BMI 60) [...] QHS Assessment & Plan (11/23/2019 5:30 PM TRAIN CONTROL ELECTRONIC TECHNICIAN): Continue Cymbalta and gabapentin Assessment & Plan (11/22/2019 10:12 PM TRAIN CONTROL ELECTRONIC TECHNICIAN): Continue Cymbalta and gabapentin Assessment & Plan (08/26/2019 7:43 AM TRAIN CONTROL ELECTRONIC TECHNICIAN): Clinically stable at this time Assessment & [...] panel Assessment & Plan (11/15/2024 9:09 PM TRAIN CONTROL ELECTRONIC TECHNICIAN): Continue statin, optimize glycemic control. Assessment & [...] dialysis. Assessment & Plan (10/20/2022 10:17 AM TRAIN CONTROL ELECTRONIC TECHNICIAN): She is taking ezetimibe 10mg, no longer [...] bleed. Assessment & Plan (11/23/2019 5:29 PM TRAIN CONTROL ELECTRONIC TECHNICIAN): Continue home losartan - routine vitals Assessment & Plan (11/23/2019 5:26 PM TRAIN CONTROL ELECTRONIC TECHNICIAN): Continue home losartan - routine vitals Assessment [...] vative Free, Intramuscular 07/23/2012 Influenza, Unspecified 07/31/2023,07/31/2020 Squabbler (J&J) SARS-CoV-2 Vaccination 08/01/2023 MMR 09/14/2015,08/14/2015 Pfizer [...] on file Legal Sex Female 3:06 AM TRAIN CONTROL ELECTRONIC TECHNICIAN Gender Identity Not on file Sexual Orientation Not on file Last Filed Vital Signs Vital Sign Reading Time Taken Comments Blood Pressure 146/67 09/08/2025 9:00 AM TRAIN CONTROL ELECTRONIC TECHNICIAN Pulse 92 09/08/2025 9:00 AM TRAIN CONTROL ELECTRONIC TECHNICIAN Temperature 36.3 C (97.3 F) 09/08/2025 7:59 AM TRAIN CONTROL ELECTRONIC TECHNICIAN Respiratory Rate 18 09/08/2025 9:00 AM TRAIN CONTROL ELECTRONIC TECHNICIAN Oxygen Saturation 91% 09/08/2025 9:00 AM TRAIN CONTROL ELECTRONIC TECHNICIAN Inhaled Oxygen Concentration - - Weight 143.2 kg (315 lb 11.2 oz) 09/08/2025 7:59 AM TRAIN CONTROL ELECTRONIC TECHNICIAN Height 152.4 cm (5') 09/08/2025 7:59 AM TRAIN CONTROL ELECTRONIC TECHNICIAN Body Mass Index 61.66 09/08/2025 7:59 AM TRAIN CONTROL ELECTRONIC TECHNICIAN Results * POCT glucose (08/18/2025 11:44 AM CDT) Glucose Blood, POC 173 Normal Fasting 70 - 100, Random <200 mg/dL Blood 08/18/2025 11:4 4 AM CDT Catherine SEVERINO POINT OF CARE TEST ORDERABLES Final Result [...] Result * (ABNORMAL) eGFR (08/30/2021 9:53 PM TRAIN CONTROL ELECTRONIC TECHNICIAN) eGFR 7(L) 90 - 130 mL/min/1.7 3 m2 [facility] Comment: Interpretive Data Reference Interval Normal [...] last reviewed 2020 Blood 08/30/2021 9:53 PM TRAIN CONTROL ELECTRONIC TECHNICIAN 08/31/2021 1:30 AM TRAIN CONTROL ELECTRONIC TECHNICIAN us Slava Lowe MD LAB BLOOD ORDERABLES Karlee mckeon Result [facility] Department [place] [address] * Hepatitis panel, acute (11/14/2020 10:19 AM TRAIN CONTROL ELECTRONIC TECHNICIAN) Hep A IgM Nonreactive Nonreactive [facility] Comment: Interpretive Data: If Hep A IgM Ab is reported as Equivocal, a new sample should be drawn in two weeks for testing. Current interpretive data was last revised on 20. Hep B core IgM Nonreactive Nonreactive [facility] Comment: Interpretive Data If HepB Core IgM Ab is reported as Equivocal, a new sample should be drawn in two weeks for testing. Current interpretive data was last revised on 20. Hep C Ab Nonreactive Nonreactive [facility] Comment: Interpretive Data Nonreactive: Antibodies to HCV [...] last revised on 2020. HepBsAg Nonreactive Nonreactive [facility] Blood specimen (specimen) 11/14/2020 10:19 AM TRAIN CONTROL ELECTRONIC TECHNICIAN 11/14/2020 10:19 AM TRAIN CONTROL ELECTRONIC TECHNICIAN us Pierce Clark MD LAB MICROBIOLOGY - GENERAL ORDERABLES Final Result [facility] [address] Department of Laboratories [place], [place] [id number] * COLONOSCOPY (06/04/2020 4:03 PM CDT) Anatomical Region Laterality Modality Other Narrative Procedure Note Cruzito Benitez MD - 06/04/2020 4:03 PM CDT [facility] Patient Name: Fani Horton Procedure Date: 06/04/2020 4:03 PM Date of : 1960 Admit Type: Inpatient Age: 60 Gender: Female Attending MD: Cruzito Simms M.D. Room: [facility] OR POD 5 ROOM 224 Note [...] The scope was passed under direct vision.The [id number] Endoscope was introduced throughthe anus and advanced to the cecum, identified by appendiceal orifice and ileocecal valve. The colonoscopy was performed without difficulty. The patient tolerated the procedure well. The quality of the bowel preparation was evaluated using the BBPS ([place] Bowel Preparation Scale) with scores of:Right Colon [...] On: 06/04/2020 4:03 PM Recognized by the [employer] for promoting quality in endoscopy Cruzito Simms MD ENDOSCOPY PROCEDURES Final Result * Lipid panel (06/03/2020 2:56 AM CDT) Cholesterol 163 30 - 199 mg/dL [facility] Comment: Interpretive Data Ages < or [...] revised on 2018. HDL 67 >=40 mg/dL [facility] Comment: Interpretive Data Ages < or [...] on 2018. LDL, calculated 71 <=129 mg/dL [facility] Comment: Interpretive Data Ages < or [...] revised on 2018. Non-HDL Cholesterol 96 mg/dL [facility] Comment: Interpretive Data Ages < or [...] last revised on 2018. Chol/HDL ratio 2 [facility] Blood specimen (specimen) 06/03/2020 2:56 AM CDT 06/03/2020 3:07 AM CDT us Terence Mayen MD LAB BLOOD ORDERABLES Final Result Performing Organization Address City/State/[facility] Co de Phone Number [facility] Department [place] [address] from Last 3 Months or Most Recently Relevant to Health Maintenance
--- OUTSIDE RECORDS SUMMARY | 2025-10-01 01:21 | XMS_ITS | Encounter Summary ---
Author Organization [facility] Address [address] [place] [address] Phone Care Team Providers Care Orthopedically Impaired Teacher Name Role Phone Josephine Acosta MD Primary Care Provider Chelle Espinoza MD Unavailable [phone] Sue Cummins RN Unavailable [phone] Marguerite Fuchs MD Primary Care Provider Rehg, Nickie Ba CARE PARTNER Unavailable [phone] Brennan Wesley MD Unavailable Aft, Cesilia Allen MD PhD Unavailable [phone] Peter Joe MD Unavailable [phone] [facility] Un[facility] [phone] Encounter Details Date Type Department Care Team [...] on file Legal Sex Female 3:06 AM HAZARD MITIGATION OFFICER Gender Identity Not on file Sexual Orientation [...] COVID: Suspected 11/09/2020 11/09/2020 11/09/2020 9:53 PM HAZARD MITIGATION OFFICER COVID19 11/09/2020 11/09/2020 12/01/2020 3:05 AM HAZARD MITIGATION OFFICER COVID: Recovered Comment:Added based on recent COVID infection. 12/01/2020 12/02/2020 03/31/2021 3:05 AM C DT documented as of this encounter Care Teams Orthopedically Impaired Teacher Relationship Specialty Start Date End Date Josephine Acosta MD PCP - General Family Medicine 07/02/19 10/26/20 Marguerite Fuchs MD [address] [address] PCP - General Family Practice 10/27/20 Chelle Espinoza MD Referring Physician Endocrinology Diabetes & Metabolism 03/06/20 Sue Cummins, RN [address] [place] [address] SHOP Outpatient Classification Analyst 06/05/20 07/06/20 Nickie Tidwell NP [address] [place] [address] Nurse Practitioner Nurse Practitioner 03/16/21 02/07/24 Brennan [place] MD [address] [place] [address] Referring Physician Nephrology 03/16/21 05/11/24 Aft, Cesilia Allen MD PhD [address] [facility] [address] [place] [address] Surgeon Surgical Oncology 11/18/21 [place] [address] [facility] [address] [place] [address] Consulting Physician Nephrology 05/12/24 Catherine Duncan PA [address] [facility], [facility] [address] [place] [address] Physician Photogeologist Physician Photogeologist 05/17/25 documented as of this encounter
--- OUTSIDE RECORDS SUMMARY | 2025-10-01 01:21 | XMS_ITS | Encounter Summary ---
Author Organization [facility] Address [address] [place] [address] Phone Care Team Providers Care Supervisor Garage Name Role Phone Chelle Espinoza MD Unavailable [phone] Marguerite Fuchs MD Primary Care Provider Aft, Cesilia Allen MD PhD Unavailable [phone] Peter Joe MD Unavailable [phone] [facility] [phone] Encounter Details Date Type Department Care Team [...] on file Legal Sex Female 3:06 AM MARKETING INTELLIGENCE MANAGER Gender Identity Not on file Sexual Orientation Not on file documented as of this encounter Plan of Treatment Not on file documented as of this encounter Goals Goal Patient Goal Type Associated Problems Recent Progress Patient-Stated? Author CCM Chronic Pain Care Plan Chronic Care Management On track(2024 8:08 AM MARKETING INTELLIGENCE MANAGER) No Ana Paula Talley RN Note: [...] on filedocumented in this encounter Care Teams Supervisor Garage Relationship Specialty Start Date End Date Marguerite Fuchs MD PCP - General Family Practice 10/27/20 Chelle Espinoza MD Referring Physician Endocrinology Diabetes & Metabolism 03/06/20 Cesilia Aguilar MD PhD Surgeon Surgical Oncology 11/18/21 [place] [address] [facility] [address] [place] [address] Consulting Physician Nephrology 05/12/24 Catherine Duncan PA [address] [facility] DIV IM ENDOCRINOLOGY, [facility] [address] [place] [address] Physician Aviation Electrician Physician Aviation Electrician 05/17/25 documented as of this encounter
--- OUTSIDE RECORDS SUMMARY | 2025-10-01 01:22 | XMS_ITS | Clinical Summary ---
Author Organization [facility] Address [address] [place] [address] Care Team Providers Care Medical Aides Teacher Name Role Phone Cory Ramirez MD Primary Care Provider [phone] Allergies Active Allergy Reactions Criticality Noted Date [...] Scan (General) 2023 COVID-19 Vaccine ( - 2024-2 6 season) 2025 Influenza Adult (#1) 2025 07/23/2012 RSV Immunization or 60+ Years (1 - 1-dose 75+ series) 2033 Hepatitis A Vaccines Aged Out No long er eligible based on patient's age to complete this topic Meningococcal B Vaccine Aged Out No l onger eligible based on patient's age to complete this topic Meningococcal Vaccine Aged Out No makayla irene eligible based on patient's age to complete this topic RSV Immunizations Under 20 Months Aged Out No longer eligible b ased on patient's age to complete this topic Insurance [facility] Care Teams Medical Aides Teacher Relationship Specialty Start Date End Date Cory Ramirez MD [address] [place] [phone] PCP - General INTERNAL MEDICINE 05/28/18
--- OUTSIDE RECORDS SUMMARY | 2025-10-01 01:22 | XMS_ITS | Encounter Summary ---
Author Organization [facility] Healthcare Address [address] [place] [address] Care Team Providers Care Processes Chemical Design Engineer Name Role Phone Chelle Espinoza MD Unavailable [phone] Marguerite Fuchs MD Primary Care Provider Aft, Cesilia Allen MD PhD Unavailable [phone] Peter Joe MD Unavailable [phone] [facility] [phone] Reason for Visit * Reason Onset Date Comments PMC Preprocedure 09/03/2025 Encounter Details Date Type Department Care Team (Late st Contact Info) Description 09/03/2025 Telephone [facility] Formerly [facility] [address] [place] [id number] Ana Paula Quesada RN PMC Preprocedure Social History Tobacco Use Types Packs/Day Years [...] you are drinking? Patient does not drink 09/22/202 5 Q3: How often do you have si [...] on file Legal Sex Female 3:06 AM LEATHER STITCHER Gender Identity Not on file Sexual Orientation Not on file documented as of this encounter Miscellaneous Notes * Telephone Encounter - Ana Paula Quesada RN - 09/03/2025 8:23 AM CST [employer] message sent with [employer] pre procedure instructions. HER STITCHER documented in this encounter Plan of Treatment Not on file documented as of this encounter Goals Goal Patient Goal Type Associated Problems Recent Progress Patient-Stated? Author CCM Chronic Pain Care Plan Chronic Care Management On track(2024 8:08 AM LEATHER STITCHER) No Ana Paula Talley, RN Note: Problem: Chronic Pain Goals: 1. Minimize further functional decline 2. Maximize quality of life 3. Control pain Strategies: - Activity/exercise program recommendation - Conservative stepwise pain medicine strategy with multi-disciplinary approach - Recommend healthy lifestyle strategies and compensatory methods as needed documented as of this encounter Visit Diagnoses Not on filedocumented in this encounter Care Teams Processes Chemical Design Engineer Relationship Specialty Start Date End Date Marguerite Fuchs MD PCP - General Family Practice 10/27/20 Chelle Espinoza MD Referring Physician Endocrinology Diabetes & Metabolism 03/06/20 Aft, Cesilia Allen MD PhD Surgeon Surgical Oncology 11/18/21 [place] [address] [facility] [address] [address] Consulting Physician Nephrology 05/12/24 Catherine Duncan PA [address] [facility] ENDOCRINOLOGY, [address] [address] Physician Photographers' Model Physician Photographers' Model 05/17/25 documented as of this encounter
--- OUTSIDE RECORDS SUMMARY | 2025-10-01 01:22 | XMS_ITS | Encounter Summary ---
Author Organization [facility] Address [address] [place] [address] Phone Care Team Providers Care Publishing Specialist Name Role Phone Chelle Espinoza MD Unavailable [phone] Marguerite Fuchs MD Primary Care Provider Aft, Cseilia Allen MD PhD Unavailable [phone] Peter Joe MD Unavailable [phone] [facility] [phone] Encounter Details Date Type Department Care Team [...] on file Legal Sex Female 3:06 AM PROP AND SCENERY MAKER Gender Identity Not on file Sexual Orientation Not on file documented as of this encounter Plan of Treatment Not on file documented as of this encounter Goals Goal Patient Goal Type Associated Problems Recent Progress Patient-Stated? Author CCM Chronic Pain Care Plan Chronic Care Management On track(2024 8:08 AM PROP AND SCENERY MAKER) No Ana Paula Talley RN Note: Problem: [...] on filedocumented in this encounter Care Teams Publishing Specialist Relationship Specialty Start Date End Date Marguerite Fuchs MD PCP - General Family Practice 10/27/20 Chelle Espinoza MD Referring Physician Endocrinology Diabetes & Metabolism 03/06/20 Cesilia Aguilar MD PhD Surgeon Surgical Oncology 11/18/21 [place] [address] [facility] [address] [place] [address] Consulting Physician Nephrology 05/12/24 Catherine Duncan PA [address] [facility] END[facility]OLOG[facility], [facility] [address] [place] [address] Physician Reimbursement Counselor Physician Reimbursement Counselor 05/17/25 documented as of this encounter
[2025-10-01 08:22] VITALS: BP 145/72; PULSE 79; RESP 20; TEMP 36.1; O2SAT 97; BMI 61.6
[2025-10-01] MEDS: SODIUM CHLORIDE 0.9% IV 500 ML 10 ML IV CONT (08:34)
--- NOTE | 2025-10-01 08:37 | WPDANESEPPF ---
Anes - Initial Pre Proc Eval Procedure: Operation Date: 10/01/25 09:00 Proposed Procedures p Screening Colonoscopy - Sunil Wallace MD Date/Time: 10/01/25 08:37 Surgeon: Sunil Wallace MD Pre Op Diagnosis: Personal history of colon polyps, unspecified Patient Data Age: 65 Gender: F Height: 1.52 m Weight: 143.1 kg Last Vital Signs Temp 36.1 C L 10/01/25 08:22 Pulse 79 10/01/25 08:22 Resp 20 10/01/25 08:22 BP 145/72 H 10/01/25 08:22 Pulse Ox 97 10/01/25 08:22 O2 Del Method Room Air 10/01/25 08:22 Allergies Allergy/AdvReac Type Severity Reaction Status Date / Time atorvastatin Allergy Mild joint Verified 10/01/25 08:19 aches glipizide Allergy Mild lightheaded Verified 10/01/25 08:19 metformin Allergy Mild nausea Verified 10/01/25 08:19 rofecoxib Allergy Mild Joint Pain Verified 10/01/25 08:19 PAULINA Inhibitors AdvReac Severe lips Verified 10/01/25 08:19 swelling pravastatin AdvReac Intermediate Muscle Pain Verified 10/01/25 08:19 sevelamer (From Renvela) AdvReac Intermediate Nausea Verified 10/01/25 08:19 Home Medications ?Medication ?Instructions ?Recorded ?Confirmed ?Type ferric citrate 210 mg iron tablet 210 mg PO TID 09/08/20 10/01/25 History (Auryxia) vitamin B complex with C-folic 1 tablet PO DAILY 09/08/20 10/01/25 History acid 0.8 mg-zinc citrate 15 mg tablet (Dialyvite 800 with Zinc 15) gwvxmsyijyquxbykuwhphp-ndztmfuy-ayzwttlf 1 drp ophthalmic (eye) DAILY PRN 03/23/21 10/01/25 History 80 0.5 %-1 %-0.5 % eye drops dry eye(s) (Refresh Optive Advanced) aspirin 81 mg tablet 81 mg PO DAILY 06/23/22 10/01/25 History pregabalin 50 mg capsule 50 mg PO DAILY 11/09/23 10/01/25 History acetaminophen 500 mg tablet 1,000 mg PO BID PRN Pain 03/24/25 09/08/25 History (Tylenol Extra Strength) allopurinol 100 mg tablet 100 mg PO DAILY #90 tabs 03/24/25 10/01/25 Rx compr.stocking,knee,long,x-lrg #2 ea 03/24/25 09/09/25 Rx ezetimibe 10 mg tablet (Zetia) 10 mg PO DAILY #90 tabs 03/24/25 10/01/25 Rx midodrine 5 mg tablet 5 mg PO .COMPLEX 03/24/25 10/01/25 History pantoprazole 20 mg tablet,delayed 20 mg PO QAM #90 tabs 03/24/25 10/01/25 Rx release cholecalciferol (vitamin D3) 1,250 1,250 mcg PO WEEKLY #14 caps 08/06/25 10/01/25 Rx mcg (50,000 unit) capsule infusion set for insulin pump #1 ea 08/06/25 09/09/25 Rx insulin pump cartridge,auto 09/09/25 09/09/25 History dose,BT,G6/G7 with controller subcutaneous (Omnipod 5 G6-G7 Intro Kit(Gen 5) subcutaneous cartridge and controller) betamethasone dipropionate 0.05 % 1 applic topical DAILY #45 grams 09/16/25 10/01/25 Rx topical cream Patient hx anesthesia problems: none Family hx anesthesia problems: none Results Review: All pre-operative results and documents have been reviewed as part of the pre-operative evaluation. [facility] Past Medical History Medical History History of colon polyps Lymphedema of lower extremity Edema of lower extremity due to peripheral venous insufficiency Chronic low back pain Thrombosis of right internal jugular vein (~2019) due to jamie cath - resolved Mass of both breasts on mammogram COVID-19 11/2020 History of renal cell carcinoma (~2011) left Gout Type 2 diabetes mellitus without complications Skin tag (~1995) Renal cell carcinoma of left kidney (~02/14/12) Alopecia of scalp (~1988) Diabetic peripheral neuropathy associated with type 2 diabetes mellitus (~1999) End-stage renal disease on hemodialysis (~03/2019) Benign essential hypertension (~1993) JASON on CPAP (~2012) Knee osteoarthritis (~2008) Surgical History Surgical History History of hysteroscopy S/P dialysis catheter insertion History of D&C (~06/2022) Hysteroscopy, dilation and curettage, endometrial polypectomy with MyoSure History of partial nephrectomy 01/2012 - left kidney mass History of dental surgery (~2016) History of colonoscopy (~2018) H/O esophagogastroduodenoscopy (~2016) H/O ventral hernia repair (~2015) S/P cholecystectomy (~1993) History of delivery (~1988) H/O breast biopsy (~2015) Family History Family History Father Diabetes mellitus Family history of cardiac disorder Family history of congestive heart failure Family history of type 2 diabetes mellitus Sibling Diabetes mellitus Family history of cardiac disorder Family history of kidney disease Family history of type 2 diabetes mellitus Mother Asthma Family history of pancreatic cancer Family history of congestive heart failure Grandparent Family history of cardiac disorder Social History Social History Social History: former smoker Smoking packs per day: 0.25 Smoking cigarettes per day: 5.0 Years smoked: 4 Smoking pack-years: 1.00 Smoking status: Never smoker Tobacco type: cigarettes Second hand tobacco smoke exposure: No Smoking end date: 10/23/79 Alcohol intake: never Substance use: never Substance use type: does not use Lack of Transportation: No Lack of Food: Never True Current Housing: I Have Housing Concerned About Future Housing: No Difficulty Paying Gas/Electric Bills: No Difficulty Paying for Meds: No Currently Unemployed: YES Education: Master's Degree or Higher Difficulty w/ Childcare or Family Care: No Living arrangements: alone Occupation/Education: other Additional occupation/education comments: disabled Gender identity (if verbalized by the patient): Female Spiritual care concerns: No Agree to blood products: Yes Anes - Eval Final PreProcedure Day of Procedure 10/01/25 08:37 Patient weight: super morbidly obese Heart: regular rate and rhythm Lungs: clear to auscultation Airway: Mallampati scale class III Neurological: alert and oriented Last oral intake: >/= 8 hours ASA classification: IV Emergent: no Anesthetic plan: proceed Anesthesia type and monitoring: general GIVS and standard monitoring Results Review: All pre-operative results and documents have been reviewed as part of the pre-operative evaluation. Informed Consent: The patient's anesthetic plan and its attendant risks and benefits were discussed with the patient/family/POA. Questions were solicited and answers provided to the satisfaction of the patient/family/POA.
--- NOTE | 2025-10-01 08:52 | PM.HPGS ---
History of Present Illness History of Present Illness Consent: Risks, benefits, and alternatives have been discussed and questions answered. Patient agrees to proceed with procedure. Chief complaint: Personal history of colon polyps, unspecified Narrative: Fani Horton is a 65 year old female with colon polyp 5 years ago Review of Systems Review of Systems: All systems reviewed & are unremarkable except as noted in HPI and below PMFSH Past Medical History Medical History (Updated 10/01/25 @ 08:53 by Sunil Wallace MD) Colon polyp History of colon polyps Lymphedema of lower extremity Edema of lower extremity due to peripheral venous insufficiency Chronic low back pain Thrombosis of right internal jugular vein (~2019) due to jamie cath - resolved Mass of both breasts on mammogram COVID-19 11/2020 History of renal cell carcinoma (~2011) left Gout Type 2 diabetes mellitus without complications Skin tag (~1995) Renal cell carcinoma of left kidney (~02/14/12) Alopecia of scalp (~1988) Diabetic peripheral neuropathy associated with type 2 diabetes mellitus (~1999) End-stage renal disease on hemodialysis (~03/2019) Benign essential hypertension (~1993) JASON on CPAP (~2012) Knee osteoarthritis (~2008) Surgical History Surgical History History of hysteroscopy S/P dialysis catheter insertion History of D&C (~06/2022) Hysteroscopy, dilation and curettage, endometrial polypectomy with MyoSure History of partial nephrectomy 01/2012 - left kidney mass History of dental surgery (~2016) History of colonoscopy (~2018) H/O esophagogastroduodenoscopy (~2016) H/O ventral hernia repair (~2015) S/P cholecystectomy (~1993) History of delivery (~1988) H/O breast biopsy (~2015) Family History Family History Father Diabetes mellitus Family history of cardiac disorder Family history of congestive heart failure Family history of type 2 diabetes mellitus Sibling Diabetes mellitus Family history of cardiac disorder Family history of kidney disease Family history of type 2 diabetes mellitus Mother Asthma Family history of pancreatic cancer Family history of congestive heart failure Grandparent Family history of cardiac disorder Social History Social History Social History: former smoker Smoking packs per day: 0.25 Smoking cigarettes per day: 5.0 Years smoked: 4 Smoking pack-years: 1.00 Smoking status: Never smoker Tobacco type: cigarettes Second hand tobacco smoke exposure: No Smoking end date: 10/23/79 Alcohol intake: never Substance use: never Substance use type: does not use Lack of Transportation: No Lack of Food: Never True Current Housing: I Have Housing Concerned About Future Housing: No Difficulty Paying Gas/Electric Bills: No Difficulty Paying for Meds: No Currently Unemployed: YES Education: Master's Degree or Higher Difficulty w/ Childcare or Family Care: No Living arrangements: alone Occupation/Education: other Additional occupation/education comments: disabled Gender identity (if verbalized by the patient): Female Spiritual care concerns: No Agree to blood products: Yes Meds Home Medications and Allergies Home Medications ?Medication ?Instructions ?Recorded ?Confirmed ?Type ferric citrate 210 mg iron tablet 210 mg PO TID 09/08/20 10/01/25 History (Auryxia) vitamin B complex with C-folic 1 tablet PO DAILY 09/08/20 10/01/25 History acid 0.8 mg-zinc citrate 15 mg tablet (Dialyvite 800 with Zinc 15) drllagxftqacaikjxcyfpe-kefecutb-scmuagte 1 drp ophthalmic (eye) DAILY PRN 03/23/21 10/01/25 History 80 0.5 %-1 %-0.5 % eye drops dry eye(s) (Refresh Optive Advanced) aspirin 81 mg tablet 81 mg PO DAILY 06/23/22 10/01/25 History pregabalin 50 mg capsule 50 mg PO DAILY 11/09/23 10/01/25 History acetaminophen 500 mg tablet 1,000 mg PO BID PRN Pain 03/24/25 09/08/25 History (Tylenol Extra Strength) allopurinol 100 mg tablet 100 mg PO DAILY #90 tabs 03/24/25 10/01/25 Rx compr.stocking,knee,long,x-lrg #2 ea 03/24/25 09/09/25 Rx ezetimibe 10 mg tablet (Zetia) 10 mg PO DAILY #90 tabs 03/24/25 10/01/25 Rx midodrine 5 mg tablet 5 mg PO .COMPLEX 03/24/25 10/01/25 History pantoprazole 20 mg tablet,delayed 20 mg PO QAM #90 tabs 03/24/25 10/01/25 Rx release cholecalciferol (vitamin D3) 1,250 1,250 mcg PO WEEKLY #14 caps 08/06/25 10/01/25 Rx mcg (50,000 unit) capsule infusion set for insulin pump #1 ea 08/06/25 09/09/25 Rx insulin pump cartridge,auto 09/09/25 09/09/25 History dose,BT,G6/G7 with controller subcutaneous (Omnipod 5 G6-G7 Intro Kit(Gen 5) subcutaneous cartridge and controller) betamethasone dipropionate 0.05 % 1 applic topical DAILY #45 grams 09/16/25 10/01/25 Rx topical cream Allergies Allergy/AdvReac Type Severity Reaction Status Date / Time atorvastatin Allergy Mild joint Verified 10/01/25 08:19 aches glipizide Allergy Mild lightheaded Verified 10/01/25 08:19 metformin Allergy Mild nausea Verified 10/01/25 08:19 rofecoxib Allergy Mild Joint Pain Verified 10/01/25 08:19 PAULINA Inhibitors AdvReac Severe lips Verified 10/01/25 08:19 swelling pravastatin AdvReac Intermediate Muscle Pain Verified 10/01/25 08:19 sevelamer (From Renvela) AdvReac Intermediate Nausea Verified 10/01/25 08:19 Vital Signs Vital Signs - 24 hr 10/01/25 08:22 Temperature 97 F L Pulse Rate 79 Respiratory Rate 20 Blood Pressure 145/72 H Pulse Oximetry 97 Oxygen Delivery Room Air Exam Const: General: comfortable, no acute distress and obese Orientation/consciousness: patient oriented x3 HENMT: Face/Nose/Sinus: Normal nares present Eyes: General: appearance normal, both eyes and all related structures Neck: Neck: no JVD Resp: Auscultation: clear to auscultation bilaterally Cardio: Rate: regular rate Rhythm: regular rhythm GI: Inspection: non-distended GI Palp: Yes Soft to palpation Skin: General skin exam: normal color Neuro: General: patient oriented x3 Speech: normal speech Extrem: General: normal to inspection Psych: Mental Status: mental status grossly normal Assessment and Plan Assessment and plan (1) Colon polyp: Code(s): K63.5 - Polyp of colon Status: Acute Assessment and Plan: colonoscopy
[2025-10-01 09:10] VITALS: BP 96/31; PULSE 78; RESP 19; O2SAT 100
[2025-10-01 09:20] VITALS: BP 100/59; PULSE 86; RESP 20; O2SAT 100
[2025-10-01 09:30] VITALS: BP 109/47; PULSE 78; RESP 22; O2SAT 100
== END 2025-10-01 09:40 | disposition home or self-care (01) ==
PROVIDERS: PCP Family Medicine; Referring Provider Family Medicine; Visit Provider Internal Medicine Gastroenterology
PROC: 0DJD8ZZ Inspection of Lower Intestinal Tract, Via Natural or Artificial Opening Endoscopic (ICD-10-PCS; CPT 45378; principal; 2025-10-01 09:00)
DX: Z12.11 Encounter for screening for malignant neoplasm of colon (principal); K57.30 Diverticulosis of large intestine without perforation or abscess without bleeding; K64.8 Other hemorrhoids; Z86.0100 Personal history of colon polyps, unspecified; E66.01 Morbid (severe) obesity due to excess calories; Z68.44 Body mass index [BMI] 60.0-69.9, adult
CPT/HCPCS: G0105; J2003; J2704; J7040

== ENCOUNTER 2025-10-08 10:17 | Outpatient (CLI) | payer MEDICARE, SELFPAY ==
--- NOTE | ~2025-10-08 | DEXA_ITS ---
Bone Density Report Name: ELENA GARCIA Age: 65 Sex: Female Ethnicity: White Date of : 1960 Indication: postmenopausal; screening for osteoporosis; height loss; cancer; Referring Provider: MIRTA STYLES Study: Bone densitometry was performed. Exam Date: October 08, 2025 Accession number: [id number] Bone Density: Region BMD T-score Z-score Classification AP Spine(L1-L4) 1.419 3.4 5.3 Normal Femoral Neck (Left) 1.111 2.4 4.0 Normal Total Hip (Left) 1.312 3.0 4.4 Normal Femoral Neck (Right) 1.021 1.5 3.2 Normal Total Hip (Right) 1.214 2.2 3.6 Normal Total Hip Mean 1.263 2.6 4.0 Normal World Health Organization criteria for BMD impression classify patients as: Normal (T-score at or above -1.0), Osteopenia (T-score between -1.0 and -2.5), or Osteoporosis (T-score at or below -2.5). 10-year Fracture Risk: FRAX not reported because: All T-scores for Spine Total, Hip Total, Femoral Neck at or above -1.0 Previous Exams: Region Exam Age BMD T-score BMD Change BMD Change Date g/cm2 vs Baseline vs Previous AP Spine (L1-L4) 10/08/2025 65 1.419 3.4 0.047 (3.4%)* 0.047 (3.4%)* 06/27/2023 63 1.372 3.0 Total Hip(Left) 10/08/2025 65 1.312 3.0 0.041 (3.3%)* 0.041 (3.3%)* 06/27/2023 63 1.271 2.7 Total Hip(Right) 10/08/2025 65 1.214 2.2 -0.026 (-2.1%) -0.026 (-2.1%) 06/27/2023 63 1.240 2.4 *Denotes significance at 95% confidence level, LSC for AP Spine = 0.022 g/cm2, LSC for Total Hip = 0.027 g/cm2 Clinical Information Provided by Patient: Has used the following medications: Vitamin D Has the following medical conditions: Cancer Patient maximum height was 60 Menopause Age: 46 No regular weight bearing exercise Does not regularly consume dairy products Onset of menses at age 7 Number of children 1 Impression: The patient has normal bone mass. No significant bone loss was observed. Discussion: LOW RISK OF FRACTURE; BONE DENSITY IS WELL ABOVE THE MINIMUM DESIRABLE LEVEL AND ABOVE AVERAGE FOR AGE AND SEX AT ALL SKELETAL SITES TESTED. This person's bone density is above expected limits for age and sex. This is rarely clinically significant, but should be pursued if there are significant musculoskeletal complaints. The patient should follow a healthful lifestyle (good nutrition with adequate calcium and vitamin D, and appropriate weight-bearing exercise). Follow-Up: Consider repeating this study in 5 years or sooner if there is some new clinical indication. Reported by: TRISTA on 10/08/2025 11:22:00 AM. Reviewed, dictated and finalized at location A.
--- OUTSIDE RECORDS SUMMARY | 2025-10-08 12:05 | XMS_ITS | Clinical Summary ---
Author Organization [facility] Address [address] [place] [address] Phone Care Team Providers Care Bait Man Name Role Phone Unavailable Primary Care Provider Unavailabl e Medications midodrine (PROAMATINE) 5 MG tablet Take 1 tablet (5 mg total) by mouth 3 (three) times a week Prior to dialysis 60 tablet 3 07/14/2025 Active Encounters Date Type Department Care Team Description 07/12/2025 Orders Only [facility] [address] [place] [address] Lizz Rider NP from Last 3 [...] 1979 Influenza Vaccine (#1) 2025 Insurance MEDICARE [facility]
--- OUTSIDE RECORDS SUMMARY | 2025-10-08 12:05 | XMS_ITS | Patient Health Record ---
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 Name Role Phone Jess Fuchsgerhardmurphy Primary Care Provider Un available Juanis Gutierrez Unavailable [phone] Allergies Allergen (clinical drug ingredient) Drug/Non Drug [...] disorder associated with type II diabetes mellitus (411363778) Type 2 diabetes mellitus with other diabetic neurological complication (E11.49) Active confirmed Problem Type 2 diabetes mellitus with peripheral angiopathy (392979691) Type 2 diabetes mellitus with diabetic peripheral angiopathy without gangrene, unspecified whether half-way insulin use (E11.51) Active confirmed Plan Of Treatment No Information Insurance Providers Payer Name Payer Address Payer Phone Subscriber Number Group Number Insured Name Patient Relationship to Insured Coverage Start Date Coverage End Date Medicare [address] [place], [place] [id number] Fani Horton Self - patient is the insured [facility] [address] [place] [address] [id number] Fani Horton Self - patient is the insured Medical (General) History Medical History History ICD Code Neuropathy of Feet Arthritis Diabetes Dialysis Gout kidney disease Surgical History Surgery Date(Month/Year) Graph in Left arm -ecessive bleeding 2022
--- OUTSIDE RECORDS SUMMARY | 2025-10-08 12:06 | XMS_ITS | Clinical Summary ---
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
== END 2025-10-08 10:18 | disposition home or self-care (01) ==
LOC: ANHFOHIMG 10:20
PROVIDERS: PCP Family Medicine; Visit Provider Nurse Practitioner Family
DX: Z78.0 Asymptomatic menopausal state (principal)
CPT/HCPCS: 77080